=== PATIENT | female | born 1965 | race American Indian/Alaskan Native ===

== ENCOUNTER 2017-06-19 11:25 | Inpatient (IN) | payer MEDICAID ==
[2017-06-19] MEDS ORDERED: NACL 0.9% 500 ML 500 ML IV ONE (11:36)
[2017-06-19 11:53] LABS: Hematocrit 38.7 % (30.3-42.9); Hemoglobin 12.3 gm/dl (10.1-14.3); Mean Corpuscular HGB Conc 32 % (30-34); Mean Corpuscular Volume 79 fl (79-97); Platelet Count 298 K/mm3 (140-440); Red Blood Count 4.93 M/mm3 (3.65-5.03); Red Cell Distribution Width 18.2 % (13.2-15.2); White Blood Count 13.9 K/mm3 (4.5-11.0)
[2017-06-19 11:59] LABS: Mean Corpuscular Hemoglobin 25 pg (28-32)
[2017-06-19 12:33] LABS: Alanine Aminotransferase 8 units/L (7-56); Albumin 3.5 g/dL (3.9-5); Albumin/Globulin Ratio 0.8 %; Alkaline Phosphatase 107 units/L (35-129); Anion Gap 16 mmol/L; BUN/Creatinine Ratio 13; Blood Urea Nitrogen 9 mg/dL (7-17); Calcium 8.8 mg/dL (8.4-10.2); Carbon Dioxide 25 mmol/L (22-30); Chloride 100.2 mmol/L (98-107); Glucose 105 mg/dL (65-100); INR 1.69 (0.87-1.13); Potassium 3.5 mmol/L (3.6-5.0); Sodium 138 mmol/L (137-145)
--- NOTE | 2017-06-19 12:35 | XRay Report ---
Single view chest: Compared to 06/16/16. History: Possible sepsis. Findings: Marked thyromegaly. Trachea is midline. Mild pulmonary venous congestion with fluid in horizontal fissure. Normal CP angles. Impression: Probable early CHF.
[2017-06-19] MEDS ORDERED: DILAUDID IV ONE ×2 (12:37→14:00)
[2017-06-19] MEDS ORDERED: TYLENOL PO ONE (12:37)
[2017-06-19] MEDS ORDERED: VANCOMYCIN/NS 1 GM/250 ML 1 GM/250 ML BAG IV ONE (12:45)
[2017-06-19 12:46] LABS: Bacteria,Urine 1+ /HPF (Negative); Bilirubin,Urine NEG (Negative); Blood,Urine MOD (Negative); Ketones,Urine NEG (Negative); Leukocyte Esterase,Urine NEG (Negative); Mucus,Urine FEW /HPF; Nitrite,Urine NEG (Negative); Protein,Urine <15 mg/dL mg/dL (Negative); Urobilinogen,Urine < 2.0 mg/dL (<2.0); WBC,Urine < 1.0 /HPF (0.0-6.0)
[2017-06-19 12:48] LABS: Basophils % (Manual) 0 % (0.0-1.8); Blastocytes % (Manual) 0 %; Eosinophils % (Manual) 0 % (0.0-4.3); Hypochromasia 1+
[2017-06-19 12:49] LABS: Diff Status Complete
[2017-06-19] MEDS ORDERED: LASIX IV ONE (13:42)
--- NOTE | 2017-06-19 14:56 | Emergency Department Report ---
HPI - General Chief Complaint: Dyspnea/Respdistress Time Seen by Provider: 06/19/17 11:45 - HPI HPI: This is a 52 year-old female presents to the emergency department with a complaint of pain and swelling to the left leg. She says that there has been some leakage of fluid from that leg. It appears to be a acute on chronic condition as she says that it is bothering her for the past few days but she also says that she has an upcoming appointment with a vascular physician regarding the same left lower extremity. She has not taken anything for her pain prior to presentation. Patient says that she has felt febrile and does present with a fever but did not check her temperature at home. She has a past medical history of CHF, COPD, coronary artery disease with previous [place] and CABG, hypertension, Crohn's disease. She has a significant past surgical history. She does admit to some shortness of breath denies any chest pain, back pain, nausea, vomiting or diaphoresis. No recent travel or sick contacts at home. ED Past Medical Hx - Past Medical History Hx Hypertension: Yes Hx Heart Attack/AMI: Yes (double heart bypass 07/15) Hx Congestive Heart Failure: Yes (cardiomyopathy) Hx Diabetes: No Hx GERD: Yes (hiatal hernia) Hx COPD: Yes Additional medical history: Crohn's disease. Cardiomyopathy- left ventricle. Life vest in place. - Surgical History Hx Coronary Stent: Yes Hx Open Heart Surgery: No (mitral valve replacement (from old chart, pt. unsure) ) Hx Pacemaker: Yes Hx Internal Defibrillator: Yes Hx Cholecystectomy: No Hx Appendectomy: No Hx Breast Surgery: No Additional Surgical History: bowel resection- December 2007, (3) Fissurectomies,. Hysterectomy. defibrillator placed 11/2015 - Social History Smoking Status: Current Every Day Smoker Substance Use Type: None - Medications Home Medications: Home Medications Medication Instructions Recorded Confirmed Last Taken Type Atorvastatin [Lipitor] 40 mg PO QHS 10/17/14 07/21/16 06/14/15 History Warfarin [Coumadin] 5 mg PO QDAY 03/12/15 07/21/16 06/14/15 History cloNIDine [Catapres] 0.3 mg PO BID 06/13/15 07/21/16 06/14/15 History Cyclobenzaprine HCl [Flexeril 5 MG 5 mg PO Q8HR PRN #10 tab 07/21/16 Unknown Rx TAB] Gabapentin [Neurontin] 300 mg PO TID 07/21/16 07/21/16 Unknown History Lisinopril [Zestril] 40 mg PO BID 07/21/16 07/21/16 Unknown History Torsemide [Demadex] 20 mg PO QAM 07/21/16 07/21/16 Unknown History ED Review of Systems ROS: Stated complaint: LEFT LEG SWOLLEN Other details as noted in HPI Comment: All other systems reviewed and negative Constitutional: chills, fever Eyes: denies: eye pain, eye discharge, vision change ENT: denies: ear pain, throat pain Respiratory: shortness of breath. denies: cough Cardiovascular: edema. denies: chest pain Gastrointestinal: denies: abdominal pain, nausea, diarrhea Genitourinary: denies: urgency, dysuria, discharge Musculoskeletal: arthralgia, myalgia. denies: back pain Skin: change in color. denies: rash Neurological: denies: headache, numbness Physical Exam - Physical Exam Vital Signs: Vital Signs 06/19/17 06/19/17 06/19/17 11:31 12:44 12:46 Temperature 102.7 F H Pulse Rate 95 H Respiratory 22 18 18 Rate Blood Pressure 176/96 O2 Sat by Pulse 100 Oximetry 06/19/17 14:05 Temperature Pulse Rate Respiratory 18 Rate Blood Pressure O2 Sat by Pulse Oximetry Physical Exam: GENERAL: The patient is well-developed well-nourished. HENT: Normocephalic. Atraumatic. Patient has moist mucous membranes. EYES: Extraocular motions are intact. Pupils equal reactive to light bilaterally. NECK: Supple. Trachea is midline. CHEST/LUNGS: Coarse breath sounds throughout the chest. No tachypnea or accessory muscle use. There is no respiratory distress noted. HEART/CARDIOVASCULAR: Regular. There is no tachycardia. There is no gallop rub or murmur. ABDOMEN: Abdomen is soft, nontender. Patient has normal bowel sounds. There is no abdominal distention. SKIN: Skin is warm and dry. There is bilateral lower extremity swelling but left greater than right. No obvious erythema. No current weeping or drainage. NEURO: The patient is awake, alert, and oriented. The patient is cooperative. The patient has no focal neurologic deficits. The patient has normal speech. MUSCULOSKELETAL: There is tenderness to palpation to the left lower extremity from the knee distally. There is palpable pedal pulses bilaterally. ED Course Vital Signs 06/19/17 06/19/17 06/19/17 11:31 12:44 12:46 Temperature 102.7 F H Pulse Rate 95 H Respiratory 22 18 18 Rate Blood Pressure 176/96 O2 Sat by Pulse 100 Oximetry 06/19/17 14:05 Temperature Pulse Rate Respiratory 18 Rate Blood Pressure O2 Sat by Pulse Oximetry ED Medical Decision Making - Lab Data Result diagrams: 06/19/17 11:36 06/19/17 11:36 - EKG Data -: EKG Interpreted by Me EKG shows normal: sinus rhythm, axis, intervals, QRS complexes (LVH, IVCD), ST- T waves Rate: normal - EKG Data When compared to previous EKG there are: no significant change Interpretation: unchanged when compared t (06/16/17) - Radiology Data Radiology results: report reviewed, image reviewed interpreted by me: Chest x-ray shows some moderate cardiomegaly, pulmonary vascular congestion and some mild basilar pleural effusions. X-ray of the left tib-fib does not show any fracture, dislocation or any signs of osteomyelitis Left lower extremity venous Doppler was a poor study but appears negative for DVT. - Medical Decision Making 52-year-old female presents to the emergency department with the main complaint of left lower extremity pain but secondarily does have some shortness of breath. She has a history of CHF and appears to be in CHF exacerbation as she has a BNP of greater than 2500 and a chest x-ray that shows some vascular congestion and mild pleural effusions. She was given some IV Lasix to start diuresis. Regarding her left leg, a venous Doppler was done that was a poor study but did not appear to show any signs of acute DVT. There is some swelling to the bilateral lower extremities with left greater than right. She does not appear to have signs of compartment syndrome as the compartments are soft and the patient has good distal/pedal pulses. X-ray did not show any signs of osteomyelitis or any other acute process. Patient did present with a fever with a MAXIMUM TEMPERATURE of 102. She has a mild leukocytosis of 13, 000. The obvious source of infection is unknown but she was covered empirically with vancomycin. She will be admitted to the hospital for further evaluation and treatment and has been accepted for admission by the hospitalist , Dr. Cosme. - Differential Diagnosis CHF, DVT, Cellulitis, Venous Stasis Critical Care Time: No Critical care attestation.: If time is entered above; I have spent that time in minutes in the direct care of this critically ill patient, excluding procedure time. ED Disposition Clinical Impression: Systemic inflammatory response syndrome (SIRS), Left leg pain, Uncontrolled hypertension, CHF (congestive heart failure), Edema extremities Disposition: OP ADMIT IP TO THIS HOSP Is pt being admited?: Yes Condition: Stable Instructions: Hypertension (ED) Referrals: PRIMARY CARE, [Primary Care Provider] - 3-5 Days
--- NOTE | 2017-06-19 16:20 | XRay Report ---
LEFT TIBIA AND FIBULA RADIOGRAPHS INDICATION: Left leg pain. COMPARISON: 02/20/2015 left knee radiographs. FINDINGS: AP and lateral views demonstrate intact tibia and fibula as also imaged knee and ankle articulations. Unremarkable soft tissues. CONCLUSION: No acute left tibia or fibula radiographic abnormality. Thank you for the opportunity to participate in this patient's care.
[2017-06-19] MEDS ORDERED: DILAUDID IV PRN (18:14)
--- NOTE | 2017-06-19 18:14 | History and Physical Report ---
History of Present Illness Date of examination: 06/19/17 Date of admission: 06/19/17 14:31 Chief complaint: CC: Increasing SOB L leg pain 1 day History of present illness: QUILEUTE: 52 y/o AAF HTN CHF and Mitral valve replacement comes in for increasing SOB..SOBat rest and while lying flat.Also has low grade fever.Incidentall has L leg swelling.No recent travel.No PnD attacks.No chest pain Past Medical History Hx Hypertension: Yes Hx Heart Attack/AMI: Yes (double heart bypass 07/15) Hx Congestive Heart Failure: Yes (cardiomyopathy) Hx GERD: Yes (hiatal hernia) Hx COPD: Yes Additional medical history: Crohn's disease. Cardiomyopathy- left ventricle. Life vest in place. Surgical History Hx Coronary Stent: Yes Hx Open Heart Surgery: (mitral valve replacement (from old chart, pt. unsure)) Hx Pacemaker: Yes Hx Internal Defibrillator: Yes Additional Surgical History: bowel resection- December 2007, (3) Fissurectomies,. Hysterectomy. defibrillator placed 11/2015 Social History Smoking Status: Current Every Day Smoker Substance Use Type: None Fam Hx Htn - Medications Home Medications: Home Medications Medication Instructions Recorded Confirmed Last Taken Type Atorvastatin [Lipitor] 40 mg PO QHS 10/17/14 07/21/16 06/14/15 History Warfarin [Coumadin] 5 mg PO QDAY 03/12/15 07/21/16 06/14/15 History cloNIDine [Catapres] 0.3 mg PO BID 06/13/15 07/21/16 06/14/15 History Cyclobenzaprine HCl [Flexeril 5 MG 5 mg PO Q8HR PRN #10 tab 07/21/16 Unknown Rx TAB] Gabapentin [Neurontin] 300 mg PO TID 07/21/16 07/21/16 Unknown History Lisinopril [Zestril] 40 mg PO BID 07/21/16 07/21/16 Unknown History Torsemide [Demadex] 20 mg PO QAM 07/21/16 07/21/16 Unknown History Review of Systems ROS: Stated complaint: LEFT LEG SWOLLEN Other details as noted in HPI Comment: All other systems reviewed and negative Constitutional: chills, fever Eyes: denies: eye pain, eye discharge, vision change ENT: denies: ear pain, throat pain Respiratory: shortness of breath. denies: cough Cardiovascular: edema. denies: chest pain Gastrointestinal: denies: abdominal pain, nausea, diarrhea Genitourinary: denies: urgency, dysuria, discharge Musculoskeletal: arthralgia, myalgia. denies: back pain Skin: change in color. denies: rash Neurological: denies: headache, numbness Medications and Allergies Allergies Allergy/AdvReac Type Severity Reaction Status Date / Time morphine Allergy Swelling Verified 06/10/15 08:19 nitroglycerin Allergy Angioedema Verified 06/10/15 08:19 NSAIDS (Non-Steroidal Allergy Swelling Verified 06/10/15 08:19 Anti-Inflamma Home Medications Medication Instructions Recorded Confirmed Last Taken Type Atorvastatin [Lipitor] 40 mg PO QHS 10/17/14 06/20/17 06/14/15 History Warfarin [Coumadin] 5 mg PO QDAY 03/12/15 06/20/17 06/14/15 History cloNIDine [Catapres] 0.3 mg PO BID 06/13/15 06/20/17 06/14/15 History Cyclobenzaprine HCl [Flexeril 5 MG 5 mg PO Q8HR PRN #10 tab 07/21/16 06/20/17 Unknown Rx TAB] Gabapentin [Neurontin] 300 mg PO TID 07/21/16 06/20/17 Unknown History Lisinopril [Zestril] 40 mg PO BID 07/21/16 06/20/17 Unknown History Torsemide [Demadex] 20 mg PO QAM 07/21/16 06/20/17 Unknown History Active Meds: Active Medications Heparin Sodium (Porcine) (Heparin) 5,000 unit SUB-Q Q8HR HERACLIO Pneumococcal Polyvalent Vaccine (Pneumovax 23) 0.5 ml IM .ONCE ONE Stop: 06/20/17 12:01 Exam - Constitutional Vitals: Temp Pulse Resp BP Pulse Ox 99.6 F 90 18 165/72 94 06/19/17 16:31 06/19/17 13:46 06/19/17 14:57 06/19/17 16:16 06/19/17 16:16 General appearance: Present: mild distress, well-nourished - EENT Eyes: Present: PERRL ENT: hearing intact, clear oral mucosa - Neck Neck: Present: supple, normal ROM - Respiratory Respiratory effort: normal Respiratory: bilateral: CTA - Cardiovascular Heart rate: 90 Rhythm: regular Heart Sounds: Present: S1 & S2. Absent: rub, click - Extremities Extremities: pulses symmetrical, No edema Extremity abnormal: edema Peripheral Pulses: within normal limits - Abdominal General gastrointestinal: Present: soft, non-tender, non-distended, normal bowel sounds Female genitourinary: Present: normal - Rectal Rectal Exam: deferred - Integumentary Integumentary: Present: clear, warm, dry - Musculoskeletal Musculoskeletal: gait normal, strength equal bilaterally - Psychiatric Psychiatric: appropriate mood/affect, intact judgment & insight - Neurologic Neurologic: CNII-XII intact, moves all extremities - Allied Health Allied health notes reviewed: nursing, case management Results - Labs CBC & Chem 7: 06/20/17 06:28 06/20/17 06:28 Labs: Laboratory Last Values WBC 13.9 K/mm3 (4.5-11.0) H 06/19/17 11:36 RBC 4.93 M/mm3 (3.65-5.03) 06/19/17 11:36 Hgb 12.3 gm/dl (10.1-14.3) 06/19/17 11:36 Hct 38.7 % (30.3-42.9) 06/19/17 11:36 MCV 79 fl (79-97) 06/19/17 11:36 MCH 25 pg (28-32) L 06/19/17 11:36 MCHC 32 % (30-34) 06/19/17 11:36 RDW 18.2 % (13.2-15.2) H 06/19/17 11:36 Plt Count 298 K/mm3 (140-440) 06/19/17 11:36 Add Manual Diff Complete 06/19/17 11:36 Total Counted 100 06/19/17 11:36 Seg Neutrophils % Digital Asset Coordinator 06/19/17 11:36 Seg Neuts % (Manual) 95.0 % (40.0-70.0) H 06/19/17 11:36 Band Neutrophils % 3.0 % 06/19/17 11:36 Lymphocytes % (Manual) 1.0 % (13.4-35.0) L 06/19/17 11:36 Reactive Lymphs % (Man) 0 % 06/19/17 11:36 Monocytes % (Manual) 1.0 % (0.0-7.3) 06/19/17 11:36 Eosinophils % (Manual) 0 % (0.0-4.3) 06/19/17 11:36 Basophils % (Manual) 0 % (0.0-1.8) 06/19/17 11:36 Metamyelocytes % 0 % 06/19/17 11:36 Myelocytes % 0 % 06/19/17 11:36 Promyelocytes % 0 % 06/19/17 11:36 Blast Cells % 0 % 06/19/17 11:36 Nucleated RBC % Not Reportable 06/19/17 11:36 Seg Neutrophils # Man 13.2 K/mm3 (1.8-7.7) H 06/19/17 11:36 Band Neutrophils # 0.4 K/mm3 06/19/17 11:36 Lymphocytes # (Manual) 0.1 K/mm3 (1.2-5.4) L 06/19/17 11:36 Abs React Lymphs (Man) 0.0 K/mm3 06/19/17 11:36 Monocytes # (Manual) 0.1 K/mm3 (0.0-0.8) 06/19/17 11:36 Eosinophils # (Manual) 0.0 K/mm3 (0.0-0.4) 06/19/17 11:36 Basophils # (Manual) 0.0 K/mm3 (0.0-0.1) 06/19/17 11:36 Metamyelocytes # 0.0 K/mm3 06/19/17 11:36 Myelocytes # 0.0 K/mm3 06/19/17 11:36 Promyelocytes # 0.0 K/mm3 06/19/17 11:36 Blast Cells # 0.0 K/mm3 06/19/17 11:36 WBC Morphology Not Reportable 06/19/17 11:36 Hypersegmented Neuts Not Reportable 06/19/17 11:36 Hyposegmented Neuts Not Reportable 06/19/17 11:36 Hypogranular Neuts Not Reportable 06/19/17 11:36 Smudge Cells Not Reportable 06/19/17 11:36 Toxic Granulation Not Reportable 06/19/17 11:36 Toxic Vacuolation Not Reportable 06/19/17 11:36 Dohle Bodies Not Reportable 06/19/17 11:36 Pelger-Huet Anomaly Not Reportable 06/19/17 11:36 Zee Rods Not Reportable 06/19/17 11:36 Platelet Estimate Appears normal 06/19/17 11:36 Clumped Platelets Not Reportable 06/19/17 11:36 Plt Clumps, EDTA Not Reportable 06/19/17 11:36 Large Platelets Not Reportable 06/19/17 11:36 Giant Platelets Not Reportable 06/19/17 11:36 Platelet Satelliting Not Reportable 06/19/17 11:36 Plt Morphology Comment Not Reportable 06/19/17 11:36 RBC Morphology Not Reportable 06/19/17 11:36 Dimorphic RBCs Not Reportable 06/19/17 11:36 Polychromasia Not Reportable 06/19/17 11:36 Hypochromasia 1+ 06/19/17 11:36 Poikilocytosis Not Reportable 06/19/17 11:36 Anisocytosis Not Reportable 06/19/17 11:36 Microcytosis Not Reportable 06/19/17 11:36 Macrocytosis Not Reportable 06/19/17 11:36 Spherocytes Not Reportable 06/19/17 11:36 Pappenheimer Bodies Not Reportable 06/19/17 11:36 Sickle Cells Not Reportable 06/19/17 11:36 Target Cells Not Reportable 06/19/17 11:36 Tear Drop Cells Not Reportable 06/19/17 11:36 Ovalocytes Not Reportable 06/19/17 11:36 Helmet Cells Not Reportable 06/19/17 11:36 [place] Bodies Not Reportable 06/19/17 11:36 Rowe Rings Not Reportable 06/19/17 11:36 [place] Cells Not Reportable 06/19/17 11:36 Bite Cells Not Reportable 06/19/17 11:36 Crenated Cell Not Reportable 06/19/17 11:36 Elliptocytes Not Reportable 06/19/17 11:36 Acanthocytes (Spur) Not Reportable 06/19/17 11:36 Rouleaux Not Reportable 06/19/17 11:36 Hemoglobin C Crystals Not Reportable 06/19/17 11:36 Schistocytes Not Reportable 06/19/17 11:36 Malaria parasites Not Reportable 06/19/17 11:36 [place] Bodies Not Reportable 06/19/17 11:36 Hem Pathologist Commnt No 06/19/17 11:36 PT 20.7 Sec. (12.2-14.9) H 06/19/17 11:36 INR 1.69 (0.87-1.13) H 06/19/17 11:36 VBG pH 7.424 (7.320-7.420) H 06/19/17 Unknown Sodium 138 mmol/L (137-145) 06/19/17 11:36 Potassium 3.5 mmol/L (3.6-5.0) L 06/19/17 11:36 Chloride 100.2 mmol/L (98-107) 06/19/17 11:36 Carbon Dioxide 25 mmol/L (22-30) 06/19/17 11:36 Anion Gap 16 mmol/L 06/19/17 11:36 BUN 9 mg/dL (7-17) 06/19/17 11:36 Creatinine 0.7 mg/dL (0.7-1.2) 06/19/17 11:36 Estimated GFR > 60 ml/min 06/19/17 11:36 BUN/Creatinine Ratio 13 % 06/19/17 11:36 Glucose 105 mg/dL (65-100) H 06/19/17 11:36 Lactic Acid 2.10 mmol/L (0.7-2.0) H* 06/19/17 16:52 Calcium 8.8 mg/dL (8.4-10.2) 06/19/17 11:36 Total Bilirubin 1.40 mg/dL (0.1-1.2) H 06/19/17 11:36 AST 13 units/L (5-40) 06/19/17 11:36 ALT 8 units/L (7-56) 06/19/17 11:36 Alkaline Phosphatase 107 units/L (35-129) 06/19/17 11:36 NT-Pro-B Natriuret Pep 2552 pg/mL (0-900) H 06/19/17 11:36 Total Protein 8.0 g/dL (6.3-8.2) 06/19/17 11:36 Albumin 3.5 g/dL (3.9-5) L 06/19/17 11:36 Albumin/Globulin Ratio 0.8 % 06/19/17 11:36 HCG, Qual Negative (Negative) 06/19/17 Unknown Urine Color Yellow (Yellow) 06/19/17 Unknown Urine Turbidity Clear (Clear) 06/19/17 Unknown Urine pH 8.0 (5.0-7.0) H 06/19/17 Unknown Ur Specific [place] 1.011 (1.003-1.030) 06/19/17 Unknown Urine Protein <15 mg/dl mg/dL (Negative) 06/19/17 Unknown Urine Glucose (UA) Neg mg/dL (Negative) 06/19/17 Unknown Urine Ketones Neg mg/dL (Negative) 06/19/17 Unknown Urine Blood Mod (Negative) 06/19/17 Unknown Urine Nitrite Neg (Negative) 06/19/17 Unknown Urine Bilirubin Neg (Negative) 06/19/17 Unknown Urine Urobilinogen < 2.0 mg/dL (<2.0) 06/19/17 Unknown Ur Leukocyte Esterase Neg (Negative) 06/19/17 Unknown Urine WBC (Auto) < 1.0 /HPF (0.0-6.0) 06/19/17 Unknown Urine RBC (Auto) 10.0 /HPF (0.0-6.0) 06/19/17 Unknown U Epithel Cells (Auto) 2.0 /HPF (0-13.0) 06/19/17 Unknown Urine Bacteria (Auto) 1+ /HPF (Negative) 06/19/17 Unknown Urine Mucus Few /HPF 06/19/17 Unknown Short CBC 06/19/17 06/20/17 Range/Units 11:36 06:28 WBC 13.9 H 15.8 H (4.5-11.0) K/mm3 Hgb 12.3 12.8 (10.1-14.3) gm/dl Hct 38.7 38.9 (30.3-42.9) % Plt Count 298 255 (140-440) K/mm3 BMP 06/19/17 06/20/17 11:36 06:28 Sodium 138 141 Potassium 3.5 L 2.8 L* Chloride 100.2 100.0 Carbon Dioxide 25 27 BUN 9 15 Creatinine 0.7 1.0 Glucose 105 H 105 H Calcium 8.8 8.6 Liver Function 06/19/17 06/20/17 Range/Units 11:36 06:28 Total Bilirubin 1.40 H 1.50 H (0.1-1.2) mg/dL AST 13 13 (5-40) units/L ALT 8 7 (7-56) units/L Alkaline Phosphatase 107 98 (35-129) units/L Albumin 3.5 L 3.3 L (3.9-5) g/dL Urine 10/20/17 Range/Units Unknown Urine Color Yellow (Yellow) Urine pH 8.0 H (5.0-7.0) Ur Specific [place] 1.011 (1.003-1.030) Urine Protein <15 mg/dl (Negative) mg/dL Urine Glucose (UA) Neg (Negative) mg/dL - Imaging and Cardiology EKG: report reviewed (LVH with IVCD) Chest x-ray: report reviewed (Pulmonary Venous congestion) Assessment and Plan Advance Directives: Yes (Full code) VTE prophylaxis?: Chemical Plan of care discussed with patient/family: Yes - Patient Problems (1) Acute exacerbation of CHF (congestive heart failure) Current Visit: Yes Status: Acute Qualifiers: Congestive heart failure type: combined Qualified Code(s): I50.43 - Acute on chronic combined systolic (congestive) and diastolic (congestive) heart failure Plan to address problem: IV Lasix initiated Echo ordered (2) Systemic inflammatory response syndrome (SIRS) Current Visit: Yes Status: Acute Plan to address problem: Patient with temp of 102.3.And Lactic acid of 2.1 c/w SIS Initiated onLevaquin and Vancomycin ID consult requested. Blood cultures ordered (3) HTN (hypertension) Current Visit: Yes Status: Chronic Qualifiers: Hypertension type: essential hypertension Qualified Code(s): I10 - Essential (primary) hypertension Plan to address problem: Cont antihypertensives (4) Anticoagulation monitoring, INR range 2.5-3.5 Current Visit: Yes Status: Acute Plan to address problem: Patient has MVR.Pharmacy tomaintain INR in 2.5 to 3.5 (5) Hypokalemia Current Visit: Yes Status: Acute Plan to address problem: Supplemented (6) DVT prophylaxis Current Visit: Yes Status: Acute
[2017-06-19] MEDS ORDERED: NON-FORMULARY (Cyclobenzaprine Hcl [Flexeril 5 Mg Tab] 5 MG) PO PRN (18:22)
[2017-06-19] MEDS ORDERED: DULCOLAX PR PRN (18:25)
[2017-06-19] MEDS ORDERED: MILK OF MAGNESIA PO PRN (18:25)
[2017-06-19] MEDS ORDERED: ZOFRAN IV PRN (18:25)
[2017-06-19] MEDS ORDERED: FLEXERIL PO PRN (18:26)
[2017-06-19] MEDS: DILAUDID IV PRN ×2 (18:29→22:17)
[2017-06-19] MEDS ORDERED: COUMADIN PO SCH (19:00)
[2017-06-19] MEDS: LEVAQUIN 750MG/150ML 750 MG/150 ML BAG IV SCH (20:37)
[2017-06-19] MEDS: LASIX IV SCH (20:39)
[2017-06-19] MEDS: PERCOCET 5/325 PO PRN (20:53)
[2017-06-19] MEDS: NEURONTIN PO SCH (21:43)
[2017-06-19] MEDS: CATAPRES PO SCH (21:45)
[2017-06-19] MEDS: ZESTRIL PO SCH (21:50)
[2017-06-19] MEDS: PEPCID IV SCH (21:54)
[2017-06-19] MEDS: MORPHINE IV PRN (22:01)
[2017-06-19] MEDS: LOVENOX SUB-Q SCH (22:23)
[2017-06-19] MEDS: COUMADIN PO SCH (22:25)
[2017-06-19] MEDS: HEPARIN SUB-Q SCH (22:41)
[2017-06-20] MEDS: DILAUDID IV PRN ×3 (01:59→23:52)
[2017-06-20] MEDS: PERCOCET 5/325 PO PRN (03:58)
[2017-06-20] MEDS: HEPARIN SUB-Q SCH ×2 (05:59→14:15)
[2017-06-20 06:56] LABS: Hematocrit 38.9 % (30.3-42.9); Hemoglobin 12.8 gm/dl (10.1-14.3); Mean Corpuscular HGB Conc 33 % (30-34); Mean Corpuscular Volume 77 fl (79-97); Platelet Count 255 K/mm3 (140-440); Red Blood Count 5.05 M/mm3 (3.65-5.03); Red Cell Distribution Width 17.9 % (13.2-15.2); White Blood Count 15.8 K/mm3 (4.5-11.0)
[2017-06-20 07:10] LABS: INR 2.05 (0.87-1.13); Mean Corpuscular Hemoglobin 25 pg (28-32)
[2017-06-20 07:11] LABS: Alanine Aminotransferase 7 units/L (7-56); Albumin 3.3 g/dL (3.9-5); Albumin/Globulin Ratio 0.7 %; Alkaline Phosphatase 98 units/L (35-129); Anion Gap 17 mmol/L; BUN/Creatinine Ratio 15; Blood Urea Nitrogen 15 mg/dL (7-17); Calcium 8.6 mg/dL (8.4-10.2); Carbon Dioxide 27 mmol/L (22-30); Glucose 105 mg/dL (65-100); Sodium 141 mmol/L (137-145); Total Protein 7.8 g/dL (6.3-8.2)
[2017-06-20 07:15] LABS: Potassium 2.8 mmol/L (3.6-5.0)
[2017-06-20 08:16] LABS: Anisocytosis 1+; Basophils % (Manual) 0 % (0.0-1.8); Blastocytes % (Manual) 0 %; Eosinophils % (Manual) 0 % (0.0-4.3); Hypersegmented Neutrophils Few
[2017-06-20 08:17] LABS: Diff Status Complete; Hypochromasia Few; Ovalocytes Few
[2017-06-20] MEDS ORDERED: K-DUR PO ONE (08:26)
[2017-06-20] MEDS ORDERED: VANCOMYCIN PHARMACY TO DOSE IV SCH (09:00)
[2017-06-20] MEDS: NEURONTIN PO SCH ×3 (09:20→21:26)
[2017-06-20] MEDS ORDERED: NON-FORMULARY (Torsemide [Demadex] 20 MG) PO SCH (10:00)
[2017-06-20] MEDS: MORPHINE IV PRN ×3 (10:18→18:45)
[2017-06-20] MEDS: DEMADEX PO SCH (10:22)
[2017-06-20] MEDS: ZESTRIL PO SCH ×2 (10:24→21:59)
[2017-06-20] MEDS: CATAPRES PO SCH ×2 (10:24→21:55)
[2017-06-20] MEDS: PEPCID IV SCH (10:26)
[2017-06-20] MEDS: LEVAQUIN 750MG/150ML 750 MG/150 ML BAG IV SCH (10:27)
[2017-06-20] MEDS: LASIX IV SCH (10:27)
[2017-06-20] MEDS: TYLENOL PO PRN ×2 (10:49→23:21)
--- NOTE | 2017-06-20 11:46 | Consultation ---
History of Present Illness Consult date: 06/20/17 Consult reason: congestive heart failure History of present illness: This is a 52 year old obese -[place] female with a history of congestive heart failure. She is presenting with shortness of breath and bilateral leg swelling. She denies any chest pain orthopnea or PND. Past History Past Medical History: heart failure, hypertension, hyperlipidemia Past Surgical History: valve replacement Social history: no significant social history, other. denies: smoking, alcohol abuse Medications and Allergies Allergies Allergy/AdvReac Type Severity Reaction Status Date / Time morphine Allergy Swelling Verified 06/10/15 08:19 nitroglycerin Allergy Angioedema Verified 06/10/15 08:19 NSAIDS (Non-Steroidal Allergy Swelling Verified 06/10/15 08:19 Anti-Inflamma Home Medications Medication Instructions Recorded Confirmed Last Taken Type Atorvastatin [Lipitor] 40 mg PO QHS 10/17/14 06/20/17 06/14/15 History Warfarin [Coumadin] 5 mg PO QDAY 03/12/15 06/20/17 06/14/15 History cloNIDine [Catapres] 0.3 mg PO BID 06/13/15 06/20/17 06/14/15 History Cyclobenzaprine HCl [Flexeril 5 MG 5 mg PO Q8HR PRN #10 tab 07/21/16 06/20/17 Unknown Rx TAB] Gabapentin [Neurontin] 300 mg PO TID 07/21/16 06/20/17 Unknown History Lisinopril [Zestril] 40 mg PO BID 07/21/16 06/20/17 Unknown History Torsemide [Demadex] 20 mg PO QAM 07/21/16 06/20/17 Unknown History Active Meds: Active Medications Acetaminophen (Tylenol) 650 mg PO Q4H PRN PRN Reason: Pain MILD(1-3)/Fever >100.5/VACA Last Admin: 06/20/17 10:49 Dose: 650 mg Bisacodyl (Dulcolax) 10 mg [place] QDAY PRN PRN Reason: Constipation unrelieved by MOM Clonidine HCl (Catapres) 0.3 mg PO BID [facility] Last Admin: 06/20/17 10:24 Dose: 0.3 mg Cyclobenzaprine HCl (Flexeril) 5 mg PO Q8H PRN PRN Reason: Muscle Spasm Enoxaparin Sodium (Lovenox) 40 mg SUB-Q QDAY@2200 [facility] Last Admin: 06/19/17 22:23 Dose: 40 mg Famotidine (Pepcid) 20 mg IV BID [facility] Last Admin: 06/20/17 10:26 Dose: 20 mg Furosemide (Lasix) 40 mg IV QDAY [facility] Last Admin: 06/20/17 10:27 Dose: 40 mg Gabapentin (Neurontin) 300 mg PO TID [facility] Last Admin: 06/20/17 09:20 Dose: 300 mg Heparin Sodium (Porcine) (Heparin) 5,000 unit SUB-Q Q8HR [facility] Last Admin: 06/20/17 05:59 Dose: 5,000 unit Hydromorphone HCl (Dilaudid) 1 mg IV Q4H PRN PRN Reason: Pain , Severe (7-10) Last Admin: 06/20/17 06:03 Dose: 1 mg Levofloxacin/Dextrose (Levaquin 750mg/150ml) 750 mg in 150 mls @ 100 mls/hr IV Q24HR [facility] PRN Reason: Protocol Last Admin: 06/20/17 10:27 Dose: 100 mls/hr Vancomycin HCl (Vancomycin/Ns 1 Gm/250 Ml) 1 gm in 250 mls @ 166.667 mls/hr IV Q12H [facility] Lisinopril (Zestril) 40 mg PO BID [facility] Last Admin: 06/20/17 10:24 Dose: 40 mg Magnesium Hydroxide (Milk Of Magnesia) 30 ml PO Q4H PRN PRN Reason: Constipation Morphine Sulfate (Morphine) 2 mg IV Q4H PRN PRN Reason: Pain, Moderate (4-6) Last Admin: 06/20/17 10:18 Dose: 2 mg Ondansetron HCl (Zofran) 4 mg IV Q8H PRN PRN Reason: N/V unrelieved by Reglan Oxycodone/Acetaminophen (Percocet 5/325) 1 tab PO Q6H PRN PRN Reason: Pain, Moderate (4-6) Last Admin: 06/20/17 03:58 Dose: 1 tab Pneumococcal Polyvalent Vaccine (Pneumovax 23) 0.5 ml IM .ONCE ONE Stop: 06/20/17 12:01 Potassium Chloride (K-Dur) 40 meq PO Q4H [facility] Stop: 06/20/17 21:01 Torsemide (Demadex) 20 mg PO QDAY [facility] Last Admin: 06/20/17 10:22 Dose: 20 mg Vancomycin HCl (Vancomycin Pharmacy To Dose) 1 each IV PKCONSULT [facility] PRN Reason: Protocol Warfarin Sodium (Coumadin) 7.5 mg PO DAILY@1700 [facility] Last Admin: 06/19/17 22:25 Dose: 7.5 mg Review of Systems Constitutional: weight gain, fatigue, weakness, no fever, no chills Ears, nose, mouth and throat: no ear pain, no ear discharge, no epistaxis, no dysphagia, no headache, no vertigo Cardiovascular: orthopnea, shortness of breath, dyspnea on exertion Respiratory: shortness of breath, dyspnea on exertion, no cough Gastrointestinal: no abdominal pain, no nausea, no vomiting, no diarrhea, no melena, no hematochezia Genitourinary Female: no pelvic pain, no flank pain, no dysuria, no urinary frequency, no urgency Neurological: no head injury, no transient paralysis, no paralysis, no headaches , no migraines Psychiatric: no anxiety Endocrine: weight change, no cold intolerance, no heat intolerance, no polyphagia, no excessive thirst, no polydipsia, no polyuria Hematologic/Lymphatic: no easy bruising, no easy bleeding Allergic/Immunologic: no urticaria, no wheezing Physical Examination Vital Signs Temp Pulse Resp BP Pulse Ox 102.7 F H 95 H 22 176/96 100 06/19/17 11:31 06/19/17 11:31 06/19/17 11:31 06/19/17 11:31 06/19/17 11:31 General appearance: no acute distress, obese HEENT: Positive: PERRL, Normocephaly, Mucus Membranes Moist Neck: Positive: neck supple, trachea midline. Negative: JVD/HJR Cardiac: Positive: Regular Rate, S1/S2, S3, S4, PMI, Laterally Displaced Lungs: Positive: clear to auscultation, No Wheeze, Rales, Rhonchi Neuro: Positive: Grossly Intact Abdomen: Positive: Unremarkable, Active Bowel Sounds Extremities: Present: normal. Absent: edema Results 06/20/17 06:28 06/20/17 06:28 Cardiac Enzymes 06/20/17 Range/Units 06:28 AST 13 (5-40) units/L Coagulation 06/20/17 Range/Units 06:28 PT 24.1 H (12.2-14.9) Sec. INR 2.05 H (0.87-1.13) CBC 06/20/17 Range/Units 06:28 WBC 15.8 H (4.5-11.0) K/mm3 RBC 5.05 H (3.65-5.03) M/mm3 Hgb 12.8 (10.1-14.3) gm/dl Hct 38.9 (30.3-42.9) % Plt Count 255 (140-440) K/mm3 Comprehensive Metabolic Panel 06/20/17 Range/Units 06:28 Sodium 141 (137-145) mmol/L Potassium 2.8 L* (3.6-5.0) mmol/L Chloride 100.0 (98-107) mmol/L Carbon Dioxide 27 (22-30) mmol/L BUN 15 (7-17) mg/dL Creatinine 1.0 (0.7-1.2) mg/dL Glucose 105 H (65-100) mg/dL Calcium 8.6 (8.4-10.2) mg/dL AST 13 (5-40) units/L ALT 7 (7-56) units/L Alkaline Phosphatase 98 (35-129) units/L Total Protein 7.8 (6.3-8.2) g/dL Albumin 3.3 L (3.9-5) g/dL Assessment and Plan 1. Acute on chronic decompensated systolic and diastolic heart failure. 2. Status post mitral valve replacement on chronic anticoagulation 3. Dilated nonischemic cardiomyopathy last estimation of LV ejection fraction was 50- 55%. 4. History of AICD insertion which was extracted secondary to infection at the ICD pocket site. 5. Essential hypertension 6. Obesity Plan. Stat patient on diuresis and. We'll obtain a repeat echocardiogram to assess LV function. Resume home medication.
[2017-06-20] MEDS ORDERED: PNEUMOVAX 23 IM ONE (12:00)
--- NOTE | 2017-06-20 12:26 | Consultation ---
History of Present Illness - Reason for Consult Consult date: 06/20/17 [facility] Requesting physician: LATASHA GARCIA - History of Present Illness 52 years old female with history of CHF, COPD, coronary artery disease with previous NC and CABG, hypertension, Crohn's disease; admitted on 06/19/2017 complaining of a week history of left leg swelling and tenderness. Patient reports that she has chronic venous insufficiency, varicose veins. Patient reported the pain was getting worse and she decided to come to the emergency room. Upon further interview, patient is also complaining of cough with yellowish sputum production for the last 7 days. Patient denies any fever at home. Patient denies any urinary symptoms or abdominal pain. Denies any sick contacts. In the emergency room, initial temperature was 102.7, heart rate 95, blood pressure 176/96. Initial white count was 13.9. Creatinine 0.7. Lactic acid 2.1. LFTs were normal except for total bilirrubin of 1.4. CXR mild pulmonary venous congestion. XR leg no fractures. Current Antimicrobials: Levaquin 06/19 Vancomycin 06/20 Previous Antimicrobials: Microbiology: Blood cultures: 06/19 ngtd Past History Past Medical History: heart failure, hypertension, hyperlipidemia Past Surgical History: valve replacement Social history: no significant social history, other. denies: smoking, alcohol abuse Medications and Allergies Allergies Allergy/AdvReac Type Severity Reaction Status Date / Time morphine Allergy Swelling Verified 06/10/15 08:19 nitroglycerin Allergy Angioedema Verified 06/10/15 08:19 NSAIDS (Non-Steroidal Allergy Swelling Verified 06/10/15 08:19 Anti-Inflamma Home Medications Medication Instructions Recorded Confirmed Last Taken Type Atorvastatin [Lipitor] 40 mg PO QHS 10/17/14 06/20/17 06/14/15 History Warfarin [Coumadin] 5 mg PO QDAY 03/12/15 06/20/17 06/14/15 History cloNIDine [Catapres] 0.3 mg PO BID 06/13/15 06/20/17 06/14/15 History Cyclobenzaprine HCl [Flexeril 5 MG 5 mg PO Q8HR PRN #10 tab 07/21/16 06/20/17 Unknown Rx TAB] Gabapentin [Neurontin] 300 mg PO TID 07/21/16 06/20/17 Unknown History Lisinopril [Zestril] 40 mg PO BID 07/21/16 06/20/17 Unknown History Torsemide [Demadex] 20 mg PO QAM 07/21/16 06/20/17 Unknown History Active Meds: Active Medications Acetaminophen (Tylenol) 650 mg PO Q4H PRN PRN Reason: Pain MILD(1-3)/Fever >100.5/VACA Last Admin: 06/20/17 10:49 Dose: 650 mg Bisacodyl (Dulcolax) 10 mg [place] QDAY PRN PRN Reason: Constipation unrelieved by MOM Clonidine HCl (Catapres) 0.3 mg PO BID [facility] Last Admin: 06/20/17 10:24 Dose: 0.3 mg Cyclobenzaprine HCl (Flexeril) 5 mg PO Q8H PRN PRN Reason: Muscle Spasm Enoxaparin Sodium (Lovenox) 40 mg SUB-Q QDAY@2200 [facility] Last Admin: 06/19/17 22:23 Dose: 40 mg Famotidine (Pepcid) 20 mg IV BID [facility] Last Admin: 06/20/17 10:26 Dose: 20 mg Furosemide (Lasix) 40 mg IV QDAY [facility] Last Admin: 06/20/17 10:27 Dose: 40 mg Gabapentin (Neurontin) 300 mg PO TID [facility] Last Admin: 06/20/17 09:20 Dose: 300 mg Heparin Sodium (Porcine) (Heparin) 5,000 unit SUB-Q Q8HR [facility] Last Admin: 06/20/17 05:59 Dose: 5,000 unit Hydromorphone HCl (Dilaudid) 1 mg IV Q4H PRN PRN Reason: Pain , Severe (7-10) Last Admin: 06/20/17 06:03 Dose: 1 mg Levofloxacin/Dextrose (Levaquin 750mg/150ml) 750 mg in 150 mls @ 100 mls/hr IV Q24HR [facility] PRN Reason: Protocol Last Admin: 06/20/17 10:27 Dose: 100 mls/hr Vancomycin HCl (Vancomycin/Ns 1 Gm/250 Ml) 1 gm in 250 mls @ 166.667 mls/hr IV Q12H [facility] Lisinopril (Zestril) 40 mg PO BID [facility] Last Admin: 06/20/17 10:24 Dose: 40 mg Magnesium Hydroxide (Milk Of Magnesia) 30 ml PO Q4H PRN PRN Reason: Constipation Morphine Sulfate (Morphine) 2 mg IV Q4H PRN PRN Reason: Pain, Moderate (4-6) Last Admin: 06/20/17 10:18 Dose: 2 mg Ondansetron HCl (Zofran) 4 mg IV Q8H PRN PRN Reason: N/V unrelieved by Reglan Oxycodone/Acetaminophen (Percocet 5/325) 1 tab PO Q6H PRN PRN Reason: Pain, Moderate (4-6) Last Admin: 06/20/17 03:58 Dose: 1 tab Potassium Chloride (K-Dur) 40 meq PO Q4H [facility] Stop: 06/20/17 21:01 Torsemide (Demadex) 20 mg PO QDAY [facility] Last Admin: 06/20/17 10:22 Dose: 20 mg Vancomycin HCl (Vancomycin Pharmacy To Dose) 1 each IV PKCONSULT [facility] PRN Reason: Protocol Warfarin Sodium (Coumadin) 7.5 mg PO DAILY@1700 [facility] Last Admin: 06/19/17 22:25 Dose: 7.5 mg Review of Systems All systems: negative (as per HPI rest of 10 point ROS negative) Physical Examination - Physical Exam Narrative exam: General appearance: Alert in NAD, conversant Eyes: anicteric sclerae, moist conjunctivae; no lid-lag; PERRLA HENT: Atraumatic; oropharynx clear Neck: Trachea midline; supple, no thyromegaly or lymphadenopathy Lungs: bibaslar crackles CV: RRR, no murmurs Abdomen: Soft, non-tender Extremities: +left leg discoloration, heat and TTP, +right ankle discoloration. Skin: Normal temperature, turgor and texture; no rash, ulcers or subcutaneous nodules Psych: Appropriate affect, alert and oriented to person, place and time. Neuro: alert and oriented x 3. Moving all extermities Lines: No CVL / PICC - Constitutional Vitals: Vital Signs Temp Pulse Resp BP Pulse Ox 100.4 F H 79 18 103/51 100 06/20/17 12:05 06/20/17 12:05 06/20/17 12:05 06/20/17 12:05 06/20/17 12:05 Temperature -Last 24 Hours Temperature 100.4 F Temperature 102.5 F Temperature 100 F Temperature 100 F Temperature 100 F Temperature 102.3 F Temperature 100.3 F Temperature 99.6 F Results - Labs CBC & Chem 7: 06/20/17 06:28 06/20/17 06:28 Labs: Abnormal lab results 06/19/17 06/19/17 06/19/17 Range/Units 16:52 Unknown Unknown WBC (4.5-11.0) K/mm3 RBC (3.65-5.03) M/mm3 MCV (79-97) fl MCH (28-32) pg RDW (13.2-15.2) % Lymphocytes % (Manual) (13.4-35.0) % Monocytes % (Manual) (0.0-7.3) % Seg Neutrophils # Man (1.8-7.7) K/mm3 Monocytes # (Manual) (0.0-0.8) K/mm3 PT (12.2-14.9) Sec. INR (0.87-1.13) VBG pH 7.424 H (7.320-7.420) Potassium (3.6-5.0) mmol/L Glucose (65-100) mg/dL Lactic Acid 2.10 H* (0.7-2.0) mmol/L Total Bilirubin (0.1-1.2) mg/dL Albumin (3.9-5) g/dL Urine pH 8.0 H (5.0-7.0) 06/20/17 06/20/17 06/20/17 Range/Units 06:28 06:28 06:28 WBC 15.8 H (4.5-11.0) K/mm3 RBC 5.05 H (3.65-5.03) M/mm3 MCV 77 L (79-97) fl MCH 25 L (28-32) pg RDW 17.9 H (13.2-15.2) % Lymphocytes % (Manual) 12.0 L (13.4-35.0) % Monocytes % (Manual) 10.0 H (0.0-7.3) % Seg Neutrophils # Man 9.5 H (1.8-7.7) K/mm3 Monocytes # (Manual) 1.6 H (0.0-0.8) K/mm3 PT 24.1 H (12.2-14.9) Sec. INR 2.05 H (0.87-1.13) VBG pH (7.320-7.420) Potassium 2.8 L* (3.6-5.0) mmol/L Glucose 105 H (65-100) mg/dL Lactic Acid (0.7-2.0) mmol/L Total Bilirubin 1.50 H (0.1-1.2) mg/dL Albumin 3.3 L (3.9-5) g/dL Urine pH (5.0-7.0) Assessment and Plan Assessment: 1) Sepsis: Present on admission, manifested by fever, tachycardia, leukocytosis , increased lactate. Etiology - likely left leg cellulitis+/- presumed pneumonia 2) Left leg cellulitis 3) Presumed pneumonia versus COPD exacerbation: Increased yellow sputum production -CXR +pulmonary edema 4) CHF 5) COPD 6) History of coronary artery disease with previous NC and CABG 7) Hypertension 8) Crohn's disease Plan: -follow-up blood cultures -obtain respiratory cultures, procalcitonin, C-reactive protein (CRP) -check influenza antigen PCR in nasopharinx -continue levaquin and vancomycin -Arterial / venous US leg -repeat CXR in 48h Thank you Dr Best for your consultation, will follow up with you. Roberta Morales MD Infectious Diseases Specialist [facility] ([facility] M [phone] O [phone]
--- NOTE | 2017-06-20 12:27 | Progress Note ---
Assessment and Plan Assessment and plan: Sepsis. Patient meets criteria given the fever and tachycardia. Continue IV on about his follow-up blood cultures. Acute CHF exacerbation. Etiology systolic versus diastolic. Await echocardiogram results. Cardiology following. Continue diuresis. Dilated nonischemic cardiomyopathy. History of AICD insertion, which was extracted due to infection of the ICD. EF 55%. Hypertension. Continue antihypertensive medications. s/p mitral valve replacement. Cont. chronic anticoagulation. Obesity. DVT prophylaxis. History Interval history: No new issues. Hospitalist Physical - Constitutional Vitals: Temp Pulse Resp BP Pulse Ox 100.4 F H 79 18 103/51 100 06/20/17 12:05 06/20/17 12:05 06/20/17 12:05 06/20/17 12:05 06/20/17 12:05 General appearance: Present: no acute distress, obese - EENT Eyes: Present: PERRL, EOM intact ENT: hearing intact, clear oral mucosa, dentition normal - Neck Neck: Present: supple, normal ROM - Respiratory Respiratory effort: normal Respiratory: bilateral: diminished, rales - Cardiovascular Rhythm: regular Heart Sounds: Present: S1 & S2. Absent: gallop, rub - Extremities Extremities: no ischemia, No edema, Full ROM - Abdominal General gastrointestinal: soft, non-tender, non-distended, normal bowel sounds - Integumentary Integumentary: Present: clear, warm, dry - Neurologic Neurologic: CNII-XII intact, moves all extremities Results - Labs CBC & Chem 7: 06/20/17 06:28 06/20/17 06:28 Labs: Laboratory Last Values WBC 15.8 K/mm3 (4.5-11.0) H 06/20/17 06:28 RBC 5.05 M/mm3 (3.65-5.03) H 06/20/17 06:28 Hgb 12.8 gm/dl (10.1-14.3) 06/20/17 06:28 Hct 38.9 % (30.3-42.9) 06/20/17 06:28 MCV 77 fl (79-97) L 06/20/17 06:28 MCH 25 pg (28-32) L 06/20/17 06:28 MCHC 33 % (30-34) 06/20/17 06:28 RDW 17.9 % (13.2-15.2) H 06/20/17 06:28 Plt Count 255 K/mm3 (140-440) 06/20/17 06:28 Add Manual Diff Complete 06/20/17 06:28 Total Counted 100 06/20/17 06:28 Seg Neutrophils % Pulper 06/20/17 06:28 Seg Neuts % (Manual) 60.0 % (40.0-70.0) 06/20/17 06:28 Band Neutrophils % 18.0 % 06/20/17 06:28 Lymphocytes % (Manual) 12.0 % (13.4-35.0) L 06/20/17 06:28 Reactive Lymphs % (Man) 0 % 06/20/17 06:28 Monocytes % (Manual) 10.0 % (0.0-7.3) H 06/20/17 06:28 Eosinophils % (Manual) 0 % (0.0-4.3) 06/20/17 06:28 Basophils % (Manual) 0 % (0.0-1.8) 06/20/17 06:28 Metamyelocytes % 0 % 06/20/17 06:28 Myelocytes % 0 % 06/20/17 06:28 Promyelocytes % 0 % 06/20/17 06:28 Blast Cells % 0 % 06/20/17 06:28 Nucleated RBC % Not Reportable 06/20/17 06:28 Seg Neutrophils # Man 9.5 K/mm3 (1.8-7.7) H 06/20/17 06:28 Band Neutrophils # 2.8 K/mm3 06/20/17 06:28 Lymphocytes # (Manual) 1.9 K/mm3 (1.2-5.4) 06/20/17 06:28 Abs React Lymphs (Man) 0.0 K/mm3 06/20/17 06:28 Monocytes # (Manual) 1.6 K/mm3 (0.0-0.8) H 06/20/17 06:28 Eosinophils # (Manual) 0.0 K/mm3 (0.0-0.4) 06/20/17 06:28 Basophils # (Manual) 0.0 K/mm3 (0.0-0.1) 06/20/17 06:28 Metamyelocytes # 0.0 K/mm3 06/20/17 06:28 Myelocytes # 0.0 K/mm3 06/20/17 06:28 Promyelocytes # 0.0 K/mm3 06/20/17 06:28 Blast Cells # 0.0 K/mm3 06/20/17 06:28 WBC Morphology Not Reportable 06/20/17 06:28 Hypersegmented Neuts Few 06/20/17 06:28 Hyposegmented Neuts Not Reportable 06/20/17 06:28 Hypogranular Neuts Not Reportable 06/20/17 06:28 Smudge Cells Not Reportable 06/20/17 06:28 Toxic Granulation Not Reportable 06/20/17 06:28 Toxic Vacuolation Not Reportable 06/20/17 06:28 Dohle Bodies Not Reportable 06/20/17 06:28 Pelger-Huet Anomaly Not Reportable 06/20/17 06:28 Zee Rods Not Reportable 06/20/17 06:28 Platelet Estimate Appears normal 06/20/17 06:28 Clumped Platelets Not Reportable 06/20/17 06:28 Plt Clumps, EDTA Not Reportable 06/20/17 06:28 Large Platelets Not Reportable 06/20/17 06:28 Giant Platelets Not Reportable 06/20/17 06:28 Platelet Satelliting Not Reportable 06/20/17 06:28 Plt Morphology Comment Not Reportable 06/20/17 06:28 RBC Morphology Not Reportable 06/20/17 06:28 Dimorphic RBCs Not Reportable 06/20/17 06:28 Polychromasia Not Reportable 06/20/17 06:28 Hypochromasia Few 06/20/17 06:28 Poikilocytosis Not Reportable 06/20/17 06:28 Anisocytosis 1+ 06/20/17 06:28 Microcytosis Not Reportable 06/20/17 06:28 Macrocytosis Not Reportable 06/20/17 06:28 Spherocytes Not Reportable 06/20/17 06:28 Pappenheimer Bodies Not Reportable 06/20/17 06:28 Sickle Cells Not Reportable 06/20/17 06:28 Target Cells Not Reportable 06/20/17 06:28 Tear Drop Cells Not Reportable 06/20/17 06:28 Ovalocytes Few 06/20/17 06:28 Helmet Cells Not Reportable 06/20/17 06:28 Mendez-Judsonia Bodies Not Reportable 06/20/17 06:28 Liberty Rings Not Reportable 06/20/17 06:28 Nilay Cells Not Reportable 06/20/17 06:28 Bite Cells Not Reportable 06/20/17 06:28 Crenated Cell Not Reportable 06/20/17 06:28 Elliptocytes Not Reportable 06/20/17 06:28 Acanthocytes (Spur) Not Reportable 06/20/17 06:28 Rouleaux Not Reportable 06/20/17 06:28 Hemoglobin C Crystals Not Reportable 06/20/17 06:28 Schistocytes Not Reportable 06/20/17 06:28 Malaria parasites Not Reportable 06/20/17 06:28 Garrett Bodies Not Reportable 06/20/17 06:28 Hem Pathologist Commnt No 06/20/17 06:28 PT 24.1 Sec. (12.2-14.9) H 06/20/17 06:28 INR 2.05 (0.87-1.13) H 06/20/17 06:28 VBG pH 7.424 (7.320-7.420) H 06/19/17 Unknown Sodium 141 mmol/L (137-145) 06/20/17 06:28 Potassium 2.8 mmol/L (3.6-5.0) L* 06/20/17 06:28 Chloride 100.0 mmol/L (98-107) 06/20/17 06:28 Carbon Dioxide 27 mmol/L (22-30) 06/20/17 06:28 Anion Gap 17 mmol/L 06/20/17 06:28 BUN 15 mg/dL (7-17) 06/20/17 06:28 Creatinine 1.0 mg/dL (0.7-1.2) 06/20/17 06:28 Estimated GFR > 60 ml/min 06/20/17 06:28 BUN/Creatinine Ratio 15 % 06/20/17 06:28 Glucose 105 mg/dL (65-100) H 06/20/17 06:28 Lactic Acid 2.10 mmol/L (0.7-2.0) H* 06/19/17 16:52 Calcium 8.6 mg/dL (8.4-10.2) 06/20/17 06:28 Total Bilirubin 1.50 mg/dL (0.1-1.2) H 06/20/17 06:28 AST 13 units/L (5-40) 06/20/17 06:28 ALT 7 units/L (7-56) 06/20/17 06:28 Alkaline Phosphatase 98 units/L (35-129) 06/20/17 06:28 NT-Pro-B Natriuret Pep 2552 pg/mL (0-900) H 06/19/17 11:36 Total Protein 7.8 g/dL (6.3-8.2) 06/20/17 06:28 Albumin 3.3 g/dL (3.9-5) L 06/20/17 06:28 Albumin/Globulin Ratio 0.7 % 06/20/17 06:28 HCG, Qual Negative (Negative) 06/19/17 Unknown Urine Color Yellow (Yellow) 06/19/17 Unknown Urine Turbidity Clear (Clear) 06/19/17 Unknown Urine pH 8.0 (5.0-7.0) H 06/19/17 Unknown Ur Specific [place] 1.011 (1.003-1.030) 06/19/17 Unknown Urine Protein <15 mg/dl mg/dL (Negative) 06/19/17 Unknown Urine Glucose (UA) Neg mg/dL (Negative) 06/19/17 Unknown Urine Ketones Neg mg/dL (Negative) 06/19/17 Unknown Urine Blood Mod (Negative) 06/19/17 Unknown Urine Nitrite Neg (Negative) 06/19/17 Unknown Urine Bilirubin Neg (Negative) 06/19/17 Unknown Urine Urobilinogen < 2.0 mg/dL (<2.0) 06/19/17 Unknown Ur Leukocyte Esterase Neg (Negative) 06/19/17 Unknown Urine WBC (Auto) < 1.0 /HPF (0.0-6.0) 06/19/17 Unknown Urine RBC (Auto) 10.0 /HPF (0.0-6.0) 06/19/17 Unknown U Epithel Cells (Auto) 2.0 /HPF (0-13.0) 06/19/17 Unknown Urine Bacteria (Auto) 1+ /HPF (Negative) 06/19/17 Unknown Urine Mucus Few /HPF 06/19/17 Unknown
[2017-06-20] MEDS: K-DUR PO SCH ×4 (15:00→22:08)
[2017-06-20] MEDS: VANCOMYCIN/NS 1 GM/250 ML 1 GM/250 ML BAG IV SCH (16:35)
[2017-06-20] MEDS: COUMADIN PO SCH (19:05)
[2017-06-20] MEDS: PEPCID PO SCH (21:26)
[2017-06-20] MEDS: LOVENOX SUB-Q SCH (21:26)
[2017-06-20] MEDS ORDERED: BENADRYL IV ONE (21:40)
[2017-06-20] MEDS ORDERED: PROVENTIL IH ONE (21:43)
[2017-06-21] MEDS: VANCOMYCIN/NS 1 GM/250 ML 1 GM/250 ML BAG IV SCH ×2 (02:00→14:15)
[2017-06-21] MEDS: DILAUDID IV PRN ×5 (05:11→20:57)
[2017-06-21 06:16] LABS: INR 4.21 (0.87-1.13)
[2017-06-21] MEDS: NEURONTIN PO SCH ×3 (09:19→21:06)
--- NOTE | 2017-06-21 09:20 | Progress Note ---
Assessment and Plan 1. Acute on chronic decompensated systolic and diastolic heart failure. 2. Status post mitral valve replacement on chronic anticoagulation 3. Dilated nonischemic cardiomyopathy last estimation of LV ejection fraction was 50- 55%. 4. History of AICD insertion which was extracted secondary to infection at the ICD pocket site. 5. Essential hypertension 6. Obesity 7. Coumadin toxicity Plan. Stat patient on diuresis and. We'll obtain a repeat echocardiogram to assess LV function. Resume home medication. Resume Coumadin INR today 1.69. repeat CXR Subjective Date of service: 06/21/17 Principal diagnosis: CHF Interval history: No cardiac symptoms. Objective Vital Signs Temp Pulse Pulse Pulse Resp Resp Resp 06/21/17 04:59 98.8 F 61 16 06/20/17 23:15 99.8 F H 85 22 06/20/17 22:13 72 18 06/20/17 22:00 76 20 18 06/20/17 21:59 60 06/20/17 21:55 60 06/20/17 19:50 99.4 F 60 16 06/20/17 18:48 06/20/17 16:23 100 F H 58 L 20 06/20/17 12:05 100.4 F H 79 18 BP BP Pulse Ox 06/21/17 04:59 94/53 100 06/20/17 23:15 116/55 92 06/20/17 22:13 06/20/17 22:00 06/20/17 21:59 96/58 06/20/17 21:55 96/58 06/20/17 19:50 96/58 94 06/20/17 18:48 100 06/20/17 16:23 77/35 100 06/20/17 12:05 103/51 100 - Physical Examination General: Appears Well, No Apparent Distress, Other (obese) HEENT: Positive: PERRL, Normocephaly, Mucus Membranes Moist Neck: Positive: neck supple, trachea midline. Negative: JVD/HJR Cardiac: Positive: Regular Rate, S1/S2, PMI, Dilated, Laterally Displaced Lungs: Positive: clear to auscultation, No Wheeze, Rales, Rhonchi Neuro: Positive: Grossly Intact Abdomen: Positive: Unremarkable, Active Bowel Sounds Extremities: Present: normal. Absent: edema - Labs and Meds Coagulation 10/22/17 Range/Units 05:11 PT 42.5 H (12.2-14.9) Sec. INR 4.21 H (0.87-1.13) - Imaging and Cardiology EKG: report reviewed (LVH with IVCD) - Telemetry EKG Rhythm: Sinus Rhythm
[2017-06-21] MEDS: LEVAQUIN 750MG/150ML 750 MG/150 ML BAG IV SCH (09:21)
[2017-06-21] MEDS: DEMADEX PO SCH (09:21)
[2017-06-21] MEDS: ZESTRIL PO SCH ×2 (09:48→21:09)
[2017-06-21] MEDS: CATAPRES PO SCH ×2 (09:49→21:08)
[2017-06-21] MEDS: LASIX IV SCH (09:49)
--- NOTE | 2017-06-21 10:47 | Progress Note ---
Assessment and Plan Assessment and plan: Sepsis. Patient meets criteria given the fever and tachycardia. Continue IV abx and follow-up blood cultures. Acute diastolic CHF exacerbation. Await echocardiogram results. Cardiology following. Continue diuresis. Dilated nonischemic cardiomyopathy. History of AICD insertion, which was extracted due to infection of the ICD. EF 55%. Nonsustained V. tach. Patient with a 4 beat run of V. tach this morning. Etiology likely secondary to hypokalemia. Replete potassium and continue telemetry monitoring. Hypokalemia. Replete potassium. Hypertension. Continue antihypertensive medications. s/p mitral valve replacement. Cont. chronic anticoagulation. Obesity. DVT prophylaxis. History Interval history: No new issues. Hospitalist Physical - Constitutional Vitals: Temp Pulse Resp BP Pulse Ox 99.3 F 56 L 24 103/60 100 06/21/17 08:20 06/21/17 08:20 06/21/17 08:20 06/21/17 08:20 06/21/17 04:59 General appearance: Present: no acute distress, obese - EENT Eyes: Present: PERRL, EOM intact ENT: hearing intact, clear oral mucosa, dentition normal - Neck Neck: Present: supple, normal ROM - Respiratory Respiratory effort: normal Respiratory: bilateral: CTA - Cardiovascular Rhythm: regular Heart Sounds: Present: S1 & S2. Absent: gallop, rub - Extremities Extremities: no ischemia, No edema, Full ROM - Abdominal General gastrointestinal: soft, non-tender, non-distended, normal bowel sounds - Integumentary Integumentary: Present: clear, warm, dry - Neurologic Neurologic: CNII-XII intact, moves all extremities Results - Labs CBC & Chem 7: 06/20/17 06:28 06/20/17 06:28 Labs: Laboratory Last Values WBC 15.8 K/mm3 (4.5-11.0) H 06/20/17 06:28 RBC 5.05 M/mm3 (3.65-5.03) H 06/20/17 06:28 Hgb 12.8 gm/dl (10.1-14.3) 06/20/17 06:28 Hct 38.9 % (30.3-42.9) 06/20/17 06:28 MCV 77 fl (79-97) L 06/20/17 06:28 MCH 25 pg (28-32) L 06/20/17 06:28 MCHC 33 % (30-34) 06/20/17 06:28 RDW 17.9 % (13.2-15.2) H 06/20/17 06:28 Plt Count 255 K/mm3 (140-440) 06/20/17 06:28 Add Manual Diff Complete 06/20/17 06:28 Total Counted 100 06/20/17 06:28 Seg Neutrophils % [employer] 06/20/17 06:28 Seg Neuts % (Manual) 60.0 % (40.0-70.0) 06/20/17 06:28 Band Neutrophils % 18.0 % 06/20/17 06:28 Lymphocytes % (Manual) 12.0 % (13.4-35.0) L 06/20/17 06:28 Reactive Lymphs % (Man) 0 % 06/20/17 06:28 Monocytes % (Manual) 10.0 % (0.0-7.3) H 06/20/17 06:28 Eosinophils % (Manual) 0 % (0.0-4.3) 06/20/17 06:28 Basophils % (Manual) 0 % (0.0-1.8) 06/20/17 06:28 Metamyelocytes % 0 % 06/20/17 06:28 Myelocytes % 0 % 06/20/17 06:28 Promyelocytes % 0 % 06/20/17 06:28 Blast Cells % 0 % 06/20/17 06:28 Nucleated RBC % Not Reportable 06/20/17 06:28 Seg Neutrophils # Man 9.5 K/mm3 (1.8-7.7) H 06/20/17 06:28 Band Neutrophils # 2.8 K/mm3 06/20/17 06:28 Lymphocytes # (Manual) 1.9 K/mm3 (1.2-5.4) 06/20/17 06:28 Abs React Lymphs (Man) 0.0 K/mm3 06/20/17 06:28 Monocytes # (Manual) 1.6 K/mm3 (0.0-0.8) H 06/20/17 06:28 Eosinophils # (Manual) 0.0 K/mm3 (0.0-0.4) 06/20/17 06:28 Basophils # (Manual) 0.0 K/mm3 (0.0-0.1) 06/20/17 06:28 Metamyelocytes # 0.0 K/mm3 06/20/17 06:28 Myelocytes # 0.0 K/mm3 06/20/17 06:28 Promyelocytes # 0.0 K/mm3 06/20/17 06:28 Blast Cells # 0.0 K/mm3 06/20/17 06:28 WBC Morphology Not Reportable 06/20/17 06:28 Hypersegmented Neuts Few 06/20/17 06:28 Hyposegmented Neuts Not Reportable 06/20/17 06:28 Hypogranular Neuts Not Reportable 06/20/17 06:28 Smudge Cells Not Reportable 06/20/17 06:28 Toxic Granulation Not Reportable 06/20/17 06:28 Toxic Vacuolation Not Reportable 06/20/17 06:28 Dohle Bodies Not Reportable 06/20/17 06:28 Pelger-Huet Anomaly Not Reportable 06/20/17 06:28 Zee Rods Not Reportable 06/20/17 06:28 Platelet Estimate Appears normal 06/20/17 06:28 Clumped Platelets Not Reportable 06/20/17 06:28 Plt Clumps, EDTA Not Reportable 06/20/17 06:28 Large Platelets Not Reportable 06/20/17 06:28 Giant Platelets Not Reportable 06/20/17 06:28 Platelet Satelliting Not Reportable 06/20/17 06:28 Plt Morphology Comment Not Reportable 06/20/17 06:28 RBC Morphology Not Reportable 06/20/17 06:28 Dimorphic RBCs Not Reportable 06/20/17 06:28 Polychromasia Not Reportable 06/20/17 06:28 Hypochromasia Few 06/20/17 06:28 Poikilocytosis Not Reportable 06/20/17 06:28 Anisocytosis 1+ 06/20/17 06:28 Microcytosis Not Reportable 06/20/17 06:28 Macrocytosis Not Reportable 06/20/17 06:28 Spherocytes Not Reportable 06/20/17 06:28 Pappenheimer Bodies Not Reportable 06/20/17 06:28 Sickle Cells Not Reportable 06/20/17 06:28 Target Cells Not Reportable 06/20/17 06:28 Tear Drop Cells Not Reportable 06/20/17 06:28 Ovalocytes Few 06/20/17 06:28 Helmet Cells Not Reportable 06/20/17 06:28 Mendez-Ferron Bodies Not Reportable 06/20/17 06:28 [place] Rings Not Reportable 06/20/17 06:28 [place] Cells Not Reportable 06/20/17 06:28 Bite Cells Not Reportable 06/20/17 06:28 Crenated Cell Not Reportable 06/20/17 06:28 Elliptocytes Not Reportable 06/20/17 06:28 Acanthocytes (Spur) Not Reportable 06/20/17 06:28 Rouleaux Not Reportable 06/20/17 06:28 Hemoglobin C Crystals Not Reportable 06/20/17 06:28 Schistocytes Not Reportable 06/20/17 06:28 Malaria parasites Not Reportable 06/20/17 06:28 Garrett Bodies Not Reportable 06/20/17 06:28 Hem Pathologist Commnt No 06/20/17 06:28 PT 42.5 Sec. (12.2-14.9) H 06/21/17 05:11 INR 4.21 (0.87-1.13) H 06/21/17 05:11 VBG pH 7.424 (7.320-7.420) H 06/19/17 Unknown Sodium 141 mmol/L (137-145) 06/20/17 06:28 Potassium 2.8 mmol/L (3.6-5.0) L* 06/20/17 06:28 Chloride 100.0 mmol/L (98-107) 06/20/17 06:28 Carbon Dioxide 27 mmol/L (22-30) 06/20/17 06:28 Anion Gap 17 mmol/L 06/20/17 06:28 BUN 15 mg/dL (7-17) 06/20/17 06:28 Creatinine 1.0 mg/dL (0.7-1.2) 06/20/17 06:28 Estimated GFR > 60 ml/min 06/20/17 06:28 BUN/Creatinine Ratio 15 % 06/20/17 06:28 Glucose 105 mg/dL (65-100) H 06/20/17 06:28 Lactic Acid 2.10 mmol/L (0.7-2.0) H* 06/19/17 16:52 Calcium 8.6 mg/dL (8.4-10.2) 06/20/17 06:28 Total Bilirubin 1.50 mg/dL (0.1-1.2) H 06/20/17 06:28 AST 13 units/L (5-40) 06/20/17 06:28 ALT 7 units/L (7-56) 06/20/17 06:28 Alkaline Phosphatase 98 units/L (35-129) 06/20/17 06:28 C-Reactive Protein 23.10 mg/dL (0.00-1.30) H 06/20/17 13:14 NT-Pro-B Natriuret Pep 2552 pg/mL (0-900) H 06/19/17 11:36 Total Protein 7.8 g/dL (6.3-8.2) 06/20/17 06:28 Albumin 3.3 g/dL (3.9-5) L 06/20/17 06:28 Albumin/Globulin Ratio 0.7 % 06/20/17 06:28 HCG, Qual Negative (Negative) 06/19/17 Unknown Urine Color Yellow (Yellow) 06/19/17 Unknown Urine Turbidity Clear (Clear) 06/19/17 Unknown Urine pH 8.0 (5.0-7.0) H 06/19/17 Unknown Ur Specific [place] 1.011 (1.003-1.030) 06/19/17 Unknown Urine Protein <15 mg/dl mg/dL (Negative) 06/19/17 Unknown Urine Glucose (UA) Neg mg/dL (Negative) 06/19/17 Unknown Urine Ketones Neg mg/dL (Negative) 06/19/17 Unknown Urine Blood Mod (Negative) 06/19/17 Unknown Urine Nitrite Neg (Negative) 06/19/17 Unknown Urine Bilirubin Neg (Negative) 06/19/17 Unknown Urine Urobilinogen < 2.0 mg/dL (<2.0) 06/19/17 Unknown Ur Leukocyte Esterase Neg (Negative) 06/19/17 Unknown Urine WBC (Auto) < 1.0 /HPF (0.0-6.0) 06/19/17 Unknown Urine RBC (Auto) 10.0 /HPF (0.0-6.0) 06/19/17 Unknown U Epithel Cells (Auto) 2.0 /HPF (0-13.0) 06/19/17 Unknown Urine Bacteria (Auto) 1+ /HPF (Negative) 06/19/17 Unknown Urine Mucus Few /HPF 06/19/17 Unknown
[2017-06-21] MEDS: PEPCID PO SCH ×2 (12:13→21:06)
[2017-06-21 13:57] LABS: Calcium 8.5 mg/dL (8.4-10.2); Chloride 96.7 mmol/L (98-107); Potassium 3.7 mmol/L (3.6-5.0)
[2017-06-21] MEDS: PERCOCET 5/325 PO PRN ×2 (15:44→23:18)
[2017-06-21] MEDS ORDERED: COUMADIN NO DOSE TODAY PO ONE (17:00)
[2017-06-22] MEDS: DILAUDID IV PRN ×3 (01:54→10:32)
[2017-06-22] MEDS: VANCOMYCIN/NS 1 GM/250 ML 1 GM/250 ML BAG IV SCH ×3 (01:54→18:37)
[2017-06-22] MEDS: PERCOCET 5/325 PO PRN (07:25)
--- NOTE | 2017-06-22 09:07 | Progress Note ---
Assessment and Plan Assessment and plan: Sepsis. Blood cultures reveal MRSA. ID following. Consider discontinuing Levaquin. Left lower extremity cellulitis. Continue IV antibiotics as above. Acute diastolic CHF exacerbation. Await echocardiogram results. Cardiology following. Continue diuresis per cardiology. Check chest x-ray and BNP Acute renal failure. Etiology likely secondary to acute kidney injury from sepsis/ATN. Nephrology consultation. Dilated nonischemic cardiomyopathy. History of AICD insertion, which was extracted due to infection of the ICD. EF 55%. Nonsustained V. tach. Patient with a 4 beat run of V. tach this morning. Etiology likely secondary to hypokalemia. Replete potassium and continue telemetry monitoring. Hypokalemia. Replete potassium. Hypertension. Continue antihypertensive medications. s/p mitral valve replacement. Hold coumadin--INR > 5 Coagulopathy. Hold coumadin Obesity. Chronic pain syndrome. Continue Dilaudid and OxyContin. I confirmed the medications with her pain clinic at Dr. Luna's office ([phone]) DVT prophylaxis. History Interval history: No new issues. Hospitalist Physical - Constitutional Vitals: Temp Pulse Resp BP Pulse Ox 98.7 F 58 L 18 99/59 97 06/22/17 00:33 06/22/17 00:33 06/22/17 07:25 06/22/17 00:33 06/22/17 00:33 General appearance: Present: no acute distress, obese - EENT Eyes: Present: PERRL, EOM intact ENT: hearing intact, clear oral mucosa, dentition normal - Neck Neck: Present: supple, normal ROM - Respiratory Respiratory effort: normal Respiratory: bilateral: CTA - Cardiovascular Rhythm: regular Heart Sounds: Present: S1 & S2. Absent: gallop, rub - Extremities Extremities: no ischemia, No edema, Full ROM - Abdominal General gastrointestinal: soft, non-tender, non-distended, normal bowel sounds - Integumentary Integumentary: Present: clear, warm, dry - Neurologic Neurologic: CNII-XII intact, moves all extremities Results - Labs CBC & Chem 7: 06/22/17 08:44 06/22/17 08:57 Labs: Laboratory Last Values WBC 15.8 K/mm3 (4.5-11.0) H 06/20/17 06:28 RBC 5.05 M/mm3 (3.65-5.03) H 06/20/17 06:28 Hgb 12.8 gm/dl (10.1-14.3) 06/20/17 06:28 Hct 38.9 % (30.3-42.9) 06/20/17 06:28 MCV 77 fl (79-97) L 06/20/17 06:28 MCH 25 pg (28-32) L 06/20/17 06:28 MCHC 33 % (30-34) 06/20/17 06:28 RDW 17.9 % (13.2-15.2) H 06/20/17 06:28 Plt Count 255 K/mm3 (140-440) 06/20/17 06:28 Add Manual Diff Complete 06/20/17 06:28 Total Counted 100 06/20/17 06:28 Seg Neutrophils % Double Needle Stitcher 06/20/17 06:28 Seg Neuts % (Manual) 60.0 % (40.0-70.0) 06/20/17 06:28 Band Neutrophils % 18.0 % 06/20/17 06:28 Lymphocytes % (Manual) 12.0 % (13.4-35.0) L 06/20/17 06:28 Reactive Lymphs % (Man) 0 % 06/20/17 06:28 Monocytes % (Manual) 10.0 % (0.0-7.3) H 06/20/17 06:28 Eosinophils % (Manual) 0 % (0.0-4.3) 06/20/17 06:28 Basophils % (Manual) 0 % (0.0-1.8) 06/20/17 06:28 Metamyelocytes % 0 % 06/20/17 06:28 Myelocytes % 0 % 06/20/17 06:28 Promyelocytes % 0 % 06/20/17 06:28 Blast Cells % 0 % 06/20/17 06:28 Nucleated RBC % Not Reportable 06/20/17 06:28 Seg Neutrophils # Man 9.5 K/mm3 (1.8-7.7) H 06/20/17 06:28 Band Neutrophils # 2.8 K/mm3 06/20/17 06:28 Lymphocytes # (Manual) 1.9 K/mm3 (1.2-5.4) 06/20/17 06:28 Abs React Lymphs (Man) 0.0 K/mm3 06/20/17 06:28 Monocytes # (Manual) 1.6 K/mm3 (0.0-0.8) H 06/20/17 06:28 Eosinophils # (Manual) 0.0 K/mm3 (0.0-0.4) 06/20/17 06:28 Basophils # (Manual) 0.0 K/mm3 (0.0-0.1) 06/20/17 06:28 Metamyelocytes # 0.0 K/mm3 06/20/17 06:28 Myelocytes # 0.0 K/mm3 06/20/17 06:28 Promyelocytes # 0.0 K/mm3 06/20/17 06:28 Blast Cells # 0.0 K/mm3 06/20/17 06:28 WBC Morphology Not Reportable 06/20/17 06:28 Hypersegmented Neuts Few 06/20/17 06:28 Hyposegmented Neuts Not Reportable 06/20/17 06:28 Hypogranular Neuts Not Reportable 06/20/17 06:28 Smudge Cells Not Reportable 06/20/17 06:28 Toxic Granulation Not Reportable 06/20/17 06:28 Toxic Vacuolation Not Reportable 06/20/17 06:28 Dohle Bodies Not Reportable 06/20/17 06:28 Pelger-Huet Anomaly Not Reportable 06/20/17 06:28 Zee Rods Not Reportable 06/20/17 06:28 Platelet Estimate Appears normal 06/20/17 06:28 Clumped Platelets Not Reportable 06/20/17 06:28 Plt Clumps, EDTA Not Reportable 06/20/17 06:28 Large Platelets Not Reportable 06/20/17 06:28 Giant Platelets Not Reportable 06/20/17 06:28 Platelet Satelliting Not Reportable 06/20/17 06:28 Plt Morphology Comment Not Reportable 06/20/17 06:28 RBC Morphology Not Reportable 06/20/17 06:28 Dimorphic RBCs Not Reportable 06/20/17 06:28 Polychromasia Not Reportable 06/20/17 06:28 Hypochromasia Few 06/20/17 06:28 Poikilocytosis Not Reportable 06/20/17 06:28 Anisocytosis 1+ 06/20/17 06:28 Microcytosis Not Reportable 06/20/17 06:28 Macrocytosis Not Reportable 06/20/17 06:28 Spherocytes Not Reportable 06/20/17 06:28 Pappenheimer Bodies Not Reportable 06/20/17 06:28 Sickle Cells Not Reportable 06/20/17 06:28 Target Cells Not Reportable 06/20/17 06:28 Tear Drop Cells Not Reportable 06/20/17 06:28 Ovalocytes Few 06/20/17 06:28 Helmet Cells Not Reportable 06/20/17 06:28 Mendez-Hoberg Bodies Not Reportable 06/20/17 06:28 [place] Rings Not Reportable 06/20/17 06:28 [place] Cells Not Reportable 06/20/17 06:28 Bite Cells Not Reportable 06/20/17 06:28 Crenated Cell Not Reportable 06/20/17 06:28 Elliptocytes Not Reportable 06/20/17 06:28 Acanthocytes (Spur) Not Reportable 06/20/17 06:28 Rouleaux Not Reportable 06/20/17 06:28 Hemoglobin C Crystals Not Reportable 06/20/17 06:28 Schistocytes Not Reportable 06/20/17 06:28 Malaria parasites Not Reportable 06/20/17 06:28 Garrett Bodies Not Reportable 06/20/17 06:28 Hem Pathologist Commnt No 06/20/17 06:28 PT 42.5 Sec. (12.2-14.9) H 06/21/17 05:11 INR 4.21 (0.87-1.13) H 06/21/17 05:11 VBG pH 7.424 (7.320-7.420) H 06/19/17 Unknown Sodium 136 mmol/L (137-145) L 06/21/17 13:27 Potassium 3.7 mmol/L (3.6-5.0) D 06/21/17 13:27 Chloride 96.7 mmol/L (98-107) L 06/21/17 13:27 Carbon Dioxide 27 mmol/L (22-30) 06/21/17 13:27 Anion Gap 16 mmol/L 06/21/17 13:27 BUN 32 mg/dL (7-17) H 06/21/17 13:27 Creatinine 1.8 mg/dL (0.7-1.2) H D 06/21/17 13:27 Estimated GFR 36 ml/min 06/21/17 13:27 BUN/Creatinine Ratio 18 % 06/21/17 13:27 Glucose 94 mg/dL (65-100) 06/21/17 13:27 Lactic Acid 2.10 mmol/L (0.7-2.0) H* 06/19/17 16:52 Calcium 8.5 mg/dL (8.4-10.2) 06/21/17 13:27 Total Bilirubin 1.50 mg/dL (0.1-1.2) H 06/20/17 06:28 AST 13 units/L (5-40) 06/20/17 06:28 ALT 7 units/L (7-56) 06/20/17 06:28 Alkaline Phosphatase 98 units/L (35-129) 06/20/17 06:28 C-Reactive Protein 23.10 mg/dL (0.00-1.30) H 06/20/17 13:14 NT-Pro-B Natriuret Pep 2552 pg/mL (0-900) H 06/19/17 11:36 Total Protein 7.8 g/dL (6.3-8.2) 06/20/17 06:28 Albumin 3.3 g/dL (3.9-5) L 06/20/17 06:28 Albumin/Globulin Ratio 0.7 % 06/20/17 06:28 HCG, Qual Negative (Negative) 06/19/17 Unknown Urine Color Yellow (Yellow) 06/19/17 Unknown Urine Turbidity Clear (Clear) 06/19/17 Unknown Urine pH 8.0 (5.0-7.0) H 06/19/17 Unknown Ur Specific [place] 1.011 (1.003-1.030) 06/19/17 Unknown Urine Protein <15 mg/dl mg/dL (Negative) 06/19/17 Unknown Urine Glucose (UA) Neg mg/dL (Negative) 06/19/17 Unknown Urine Ketones Neg mg/dL (Negative) 06/19/17 Unknown Urine Blood Mod (Negative) 06/19/17 Unknown Urine Nitrite Neg (Negative) 06/19/17 Unknown Urine Bilirubin Neg (Negative) 06/19/17 Unknown Urine Urobilinogen < 2.0 mg/dL (<2.0) 06/19/17 Unknown Ur Leukocyte Esterase Neg (Negative) 06/19/17 Unknown Urine WBC (Auto) < 1.0 /HPF (0.0-6.0) 06/19/17 Unknown Urine RBC (Auto) 10.0 /HPF (0.0-6.0) 06/19/17 Unknown U Epithel Cells (Auto) 2.0 /HPF (0-13.0) 06/19/17 Unknown Urine Bacteria (Auto) 1+ /HPF (Negative) 06/19/17 Unknown Urine Mucus Few /HPF 06/19/17 Unknown
[2017-06-22 09:48] LABS: Basophils % (Auto) 0.4 % (0.0-1.8); Eosinophils % (Auto) 0.9 % (0.0-4.3); Hemoglobin 12.4 gm/dl (10.1-14.3); Mean Corpuscular HGB Conc 33 % (30-34); Mean Corpuscular Volume 78 fl (79-97); Platelet Count 241 K/mm3 (140-440); Red Blood Count 4.89 M/mm3 (3.65-5.03); Red Cell Distribution Width 18.1 % (13.2-15.2); White Blood Count 10.4 K/mm3 (4.5-11.0)
[2017-06-22 09:50] LABS: Mean Corpuscular Hemoglobin 25 pg (28-32)
[2017-06-22 10:00] LABS: Calcium 8.5 mg/dL (8.4-10.2); Chloride 99.4 mmol/L (98-107); Potassium 4.2 mmol/L (3.6-5.0)
[2017-06-22 10:02] LABS: INR 5.88 (0.87-1.13)
[2017-06-22] MEDS: DEMADEX PO SCH (10:28)
[2017-06-22] MEDS: CATAPRES PO SCH ×2 (10:31→21:12)
[2017-06-22] MEDS: LASIX IV SCH (10:32)
[2017-06-22] MEDS: ZESTRIL PO SCH ×2 (10:33→21:11)
[2017-06-22] MEDS: PEPCID PO SCH ×2 (10:35→21:10)
[2017-06-22] MEDS: LEVAQUIN 750MG/150ML 750 MG/150 ML BAG IV SCH (10:36)
--- NOTE | 2017-06-22 10:55 | Consultation ---
History of Present Illness - Reason for Consult Consult date: 06/22/17 acute renal failure Requesting physician: LATASHA GARCIA - History of Present Illness 52 y/o AAF HTN CHF and Mitral valve replacement comes in for increasing SOB..SOBat rest and while lying flat.Also has low grade fever.Incidentall has L leg swelling.No recent travel.No PnD attacks.No chest pain, cr was 1.8 yesterday , now 1.3 today Past Medical History Hx Hypertension: Yes Hx Heart Attack/AMI: Yes (double heart bypass 07/15) Hx Congestive Heart Failure: Yes (cardiomyopathy) Hx GERD: Yes (hiatal hernia) Hx COPD: Yes Additional medical history: Crohn's disease. Cardiomyopathy- left ventricle. Life vest in place. Surgical History Hx Coronary Stent: Yes Hx Open Heart Surgery: (mitral valve replacement (from old chart, pt. unsure)) Hx Pacemaker: Yes Hx Internal Defibrillator: Yes Additional Surgical History: bowel resection- December 2007, (3) Fissurectomies,. Hysterectomy. defibrillator placed 11/2015 Social History Smoking Status: Current Every Day Smoker Substance Use Type: None Fam Hx Htn Review of Systems ROS: Stated complaint: LEFT LEG SWOLLEN Other details as noted in HPI Comment: All other systems reviewed and negative Constitutional: chills, fever Eyes: denies: eye pain, eye discharge, vision change ENT: denies: ear pain, throat pain Respiratory: shortness of breath. denies: cough Cardiovascular: edema. denies: chest pain Gastrointestinal: denies: abdominal pain, nausea, diarrhea Genitourinary: denies: urgency, dysuria, discharge Musculoskeletal: arthralgia, myalgia. denies: back pain Skin: change in color. denies: rash Neurological: denies: headache, numbness Past History Past Medical History: heart failure, hypertension, hyperlipidemia Past Surgical History: valve replacement Social history: no significant social history, other. denies: smoking, alcohol abuse Medications and Allergies Allergies Allergy/AdvReac Type Severity Reaction Status Date / Time morphine Allergy Swelling Verified 06/10/15 08:19 nitroglycerin Allergy Angioedema Verified 06/10/15 08:19 NSAIDS (Non-Steroidal Allergy Swelling Verified 06/10/15 08:19 Anti-Inflamma Home Medications Medication Instructions Recorded Confirmed Last Taken Type Atorvastatin [Lipitor] 40 mg PO QHS 10/17/14 06/20/1706/14/15 History Warfarin [Coumadin] 5 mg PO QDAY 03/12/15 06/20/17 06/14/15 History cloNIDine [Catapres] 0.3 mg PO BID 06/13/15 06/20/17 06/14/15 History Cyclobenzaprine HCl [Flexeril 5 MG 5 mg PO Q8HR PRN #10 tab 07/21/16 06/20/17 Unknown Rx TAB] Gabapentin [Neurontin] 300 mg PO TID 07/21/16 06/20/17 Unknown History Torsemide [Demadex] 20 mg PO QAM 07/21/16 06/20/17 Unknown History Dilaudid 4 mg PO BID 06/22/17 06/22/17 06/19/17 History oxyCODONE 15 mg PO Q6HR 06/22/17 06/22/17 06/19/17 History Active Meds: Active Medications Acetaminophen (Tylenol) 650 mg PO Q4H PRN PRN Reason: Pain MILD(1-3)/Fever >100.5/VACA Last Admin: 06/20/17 23:21 Dose: 650 mg Bisacodyl (Dulcolax) 10 mg OR QDAY PRN PRN Reason: Constipation unrelieved by MOM Clonidine HCl (Catapres) 0.3 mg PO BID [facility] Last Admin: 06/22/17 10:31 Dose: 0.3 mg Cyclobenzaprine HCl (Flexeril) 5 mg PO Q8H PRN PRN Reason: Muscle Spasm Last Admin: 06/21/17 21:05 Dose: 5 mg Famotidine (Pepcid) 20 mg PO BID [facility] Last Admin: 06/22/17 10:35 Dose: 20 mg Furosemide (Lasix) 40 mg IV QDAY [facility] Last Admin: 06/22/17 10:32 Dose: 40 mg Gabapentin (Neurontin) 300 mg PO TID [facility] Last Admin: 06/21/17 21:06 Dose: 300 mg Hydromorphone HCl (Dilaudid) 1 mg IV Q4H PRN PRN Reason: Pain , Severe (7-10) Last Admin: 06/22/17 10:32 Dose: 1 mg Vancomycin HCl (Vancomycin/Ns 1 Gm/250 Ml) 1 gm in 250 mls @ 166.667 mls/hr IV Q12H [facility] Last Admin: 06/22/17 01:54 Dose: 166.667 mls/hr Levofloxacin/Dextrose (Levaquin 750mg/150ml) 750 mg in 150 mls @ 100 mls/hr IV Q48HR [facility] PRN Reason: Protocol Last Admin: 06/22/17 10:36 Dose: 100 mls/hr Lisinopril (Zestril) 40 mg PO BID [facility] Last Admin: 06/22/17 10:33 Dose: 40 mg Magnesium Hydroxide (Milk Of Magnesia) 30 ml PO Q4H PRN PRN Reason: Constipation Ondansetron HCl (Zofran) 4 mg IV Q8H PRN PRN Reason: N/V unrelieved by Reglan Oxycodone/Acetaminophen (Percocet 5/325) 1 tab PO Q6H PRN PRN Reason: Pain, Moderate (4-6) Last Admin: 06/22/17 07:25 Dose: 1 tab Torsemide (Demadex) 20 mg PO QDAY [facility] Last Admin: 06/22/17 10:28 Dose: 20 mg Vancomycin HCl (Vancomycin Pharmacy To Dose) 1 each IV PKCONSULT [facility] PRN Reason: Protocol Warfarin Sodium (Coumadin Pharmacy To Dose) 1 [facility] Exam - Vital Signs Vital signs: Vital Signs Temp Pulse Resp BP Pulse Ox 102.7 F H 95 H 22 176/96 100 06/19/17 11:31 06/19/17 11:31 06/19/17 11:31 06/19/17 11:31 06/19/17 11:31 - Physical Exam Narrative exam: General appearance: Present: mild distress, well-nourished - EENT Eyes: Present: PERRL ENT: hearing intact, clear oral mucosa - Neck Neck: Present: supple, normal ROM - Respiratory Respiratory effort: normal Respiratory: bilateral: CTA - Cardiovascular Heart rate: 90 Rhythm: regular Heart Sounds: Present: S1 & S2. Absent: rub, click - Extremities Extremities: pulses symmetrical, No edema Extremity abnormal: edema Peripheral Pulses: within normal limits - Abdominal General gastrointestinal: Present: soft, non-tender, non-distended, normal bowel sounds Female genitourinary: Present: normal - Rectal Rectal Exam: deferred - Integumentary Integumentary: Present: clear, warm, dry - Musculoskeletal Musculoskeletal: gait normal, strength equal bilaterally - Psychiatric Psychiatric: appropriate mood/affect, intact judgment & insight - Neurologic Neurologic: CNII-XII intact, moves all extremities Results - Lab Results 06/22/17 08:44 06/22/17 08:57 Most recent lab results Calcium 8.5 mg/dL (8.4-10.2) 06/22/17 08:57 Assessment and Plan Impression: * ALBERTA * CAD * Cardiomyopathy * COPD * HTN * pyuria Plan: * cr is better today * strict i/os * diuresis per cards, will hold torsemide will receiving iv lasix * avoid nephrotoxins * abx per primary team * continue supportive care * will see prn
[2017-06-22] MEDS: NEURONTIN PO SCH ×3 (10:56→21:09)
--- NOTE | 2017-06-22 12:29 | Progress Note ---
Assessment and Plan Sepsis -MRSA Lower extremity Cellulitis Mitral valve replacement, mechanical on warfarin for oral anticoagulation well functioning mechanical mitral valve on echo, EF 45-50%. Obesity Hypokalemia Subjective Date of service: 06/22/17 Principal diagnosis: CHF Interval history: No cardiac complaints. Short burst of NVST on telemetry this morning. Patient remained asymptomatic. Objective Vital Signs Temp Pulse Pulse Resp Resp BP BP 06/22/17 10:33 122/73 06/22/17 10:31 122/73 06/22/17 08:40 99.7 F H 70 18 122/73 06/22/17 07:25 18 06/22/17 05:26 18 06/22/17 01:54 18 06/22/17 00:33 98.7 F 58 L 16 99/59 06/21/17 23:18 16 06/21/17 22:00 89 20 20 06/21/17 21:09 62 100/64 06/21/17 21:08 62 100/64 06/21/17 20:57 16 06/21/17 20:00 99.4 F 62 16 100/64 06/21/17 16:35 99.9 F H 73 20 106/54 Pulse Ox 06/22/17 10:33 06/22/17 10:31 06/22/17 08:40 06/22/17 07:25 06/22/17 05:26 06/22/17 01:54 06/22/17 00:33 97 06/21/17 23:18 06/21/17 22:00 06/21/17 21:09 06/21/17 21:08 06/21/17 20:57 06/21/17 20:00 94 06/21/17 16:35 - Physical Examination General: No Apparent Distress, Other (obese) HEENT: Positive: PERRL Neck: Positive: trachea midline. Negative: JVD/HJR Neuro: Positive: Grossly Intact Abdomen: Positive: Unremarkable, Active Bowel Sounds Extremities: Present: normal. Absent: edema - Labs and Meds Coagulation 06/22/17 Range/Units 08:44 PT 55.3 H (12.2-14.9) Sec. INR 5.88 H* (0.87-1.13) CBC 06/22/17 Range/Units 08:44 WBC 10.4 (4.5-11.0) K/mm3 RBC 4.89 (3.65-5.03) M/mm3 Hgb 12.4 (10.1-14.3) gm/dl Hct 38.0 (30.3-42.9) % Plt Count 241 (140-440) K/mm3 Lymph # 1.1 L (1.2-5.4) K/mm3 [place] # 1.0 H (0.0-0.8) K/mm3 Eos # 0.1 (0.0-0.4) K/mm3 Baso # 0.0 (0.0-0.1) K/mm3 Comprehensive Metabolic Panel 06/21/17 06/22/17 Range/Units 13:27 08:57 Sodium 136 L 136 L (137-145) mmol/L Potassium 3.7 D 4.2 (3.6-5.0) mmol/L Chloride 96.7 L 99.4 (98-107) mmol/L Carbon Dioxide 27 22 (22-30) mmol/L BUN 32 H 27 H (7-17) mg/dL Creatinine 1.8 H D 1.3 H (0.7-1.2) mg/dL Glucose 94 123 H (65-100) mg/dL Calcium 8.5 8.5 (8.4-10.2) mg/dL - Imaging and Cardiology EKG: report reviewed (LVH with IVCD)
[2017-06-22] MEDS ORDERED: NARCAN 0.4 MG/1 ML IV PRN (13:13)
--- NOTE | 2017-06-22 13:28 | Progress Note ---
Assessment and Plan Assessment: 1) Sepsis: better. Etiology - from MRSA seppticemia +/- left leg cellulitis+/- presumed pneumonia. CRP=23 2) Left leg cellulitis 3) Presumed pneumonia versus COPD exacerbation: Increased yellow sputum production -CXR +pulmonary edema 4) Complicated MRSA septicemia ? 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 Patient has a mechanical MV. TTE showed no vegetation and functional MV 5) COPD 6) History of coronary artery disease with previous MT and CABG 7) Hypertension 8) Crohn's disease 9)History of MRSA septicemia and endocarditis in the past seen at [facility] ?? 10) ALBERTA worsening Plan: -obtain PAOLO in view of complicated MRSA septicemia with MV and history of endocarditis -repeat blood cultures -request medical records from [facility] and [facility] -left leg CT without contrast -lumbar spine MRI w/o constrast -f/u procalcitonin -stop levaquin -continue vancomycin renally dosed -Arterial / venous US leg - pending -repeat CXR Thank you Dr Starks for your consultation, will follow up with you. Roberta Morales MD Infectious Diseases Specialist [facility] M [phone] O [phone] Subjective Date of service: 06/22/17 Principal diagnosis: CHF Interval history: Feels better however c/o severe lower back pain and left leg pain. No fever. Current Antimicrobials: Levaquin 06/19 Vancomycin 06/20 Previous Antimicrobials: Microbiology: Blood cultures: 06/19 MRSA Urine culture: 06/20 10-100K mixed Influenza negative Objective - Exam Narrative Exam: General appearance: Alert in NAD, conversant Eyes: anicteric sclerae, moist conjunctivae; no lid-lag; PERRLA HENT: Atraumatic; oropharynx clear Neck: Trachea midline; supple, no thyromegaly or lymphadenopathy Lungs: bibaslar crackles CV: RRR, no murmurs Abdomen: Soft, non-tender Extremities: +left leg discoloration, heat and TTP, +right ankle discoloration. Skin: Normal temperature, turgor and texture; no rash, ulcers or subcutaneous nodules Psych: Appropriate affect, alert and oriented to person, place and time. Neuro: alert and oriented x 3. Moving all extermities Lines: No CVL / PICC - Constitutional Vitals: Vital Signs Temp Pulse Resp BP Pulse Ox 99.7 F H 70 18 122/73 97 06/22/17 08:40 06/22/17 08:40 06/22/17 08:40 06/22/17 10:33 06/22/17 00:33 Temperature -Last 24 Hours Temperature 99.7 F Temperature 98.7 F Temperature 99.4 F Temperature 99.9 F - Labs CBC & Chem 7: 06/22/17 08:44 06/22/17 08:57 Labs: Abnormal lab results 06/21/17 06/22/17 06/22/17 Range/Units 13:27 08:44 08:44 MCV 78 L (79-97) fl MCH 25 L (28-32) pg RDW 18.1 H (13.2-15.2) % Lymph % (Auto) 10.5 L (13.4-35.0) % [place] % (Auto) 9.7 H (0.0-7.3) % Lymph # 1.1 L (1.2-5.4) K/mm3 [place] # 1.0 H (0.0-0.8) K/mm3 Seg Neutrophils % 78.5 H (40.0-70.0) % Seg Neutrophils # 8.2 H (1.8-7.7) K/mm3 PT 55.3 H (12.2-14.9) Sec. INR 5.88 H* (0.87-1.13) Sodium 136 L (137-145) mmol/L Chloride 96.7 L (98-107) mmol/L BUN 32 H (7-17) mg/dL Creatinine 1.8 H D (0.7-1.2) mg/dL Glucose (65-100) mg/dL 06/22/17 Range/Units 08:57 MCV (79-97) fl MCH (28-32) pg RDW (13.2-15.2) % Lymph % (Auto) (13.4-35.0) % [place] % (Auto) (0.0-7.3) % Lymph # (1.2-5.4) K/mm3 [place] # (0.0-0.8) K/mm3 Seg Neutrophils % (40.0-70.0) % Seg Neutrophils # (1.8-7.7) K/mm3 PT (12.2-14.9) Sec. INR (0.87-1.13) Sodium 136 L (137-145) mmol/L Chloride (98-107) mmol/L BUN 27 H (7-17) mg/dL Creatinine 1.3 H (0.7-1.2) mg/dL Glucose 123 H (65-100) mg/dL
--- NOTE | 2017-06-22 13:58 | XRay Report ---
CHEST 2 VIEWS INDICATION: CHF. COMPARISON: 06/19/2017 FINDINGS: Frontal and lateral chest radiographs demonstrate stable sternotomy wires, prosthetic heart valve, left lower chest wall battery pack with single precordial lead and osseous structures. Mildly crowded lung markings and slight mid to lower lung horizontal atelectasis. Slight exaggerated cardiomediastinal silhouette. No pleural effusions or cephalization. CONCLUSION: No CHF radiographically with various other incidental findings, as above. Thank you for the opportunity to participate in this patient's care.
[2017-06-22] MEDS: DILAUDID PO SCH ×2 (14:19→21:09)
[2017-06-22] MEDS ORDERED: COUMADIN NO DOSE TODAY PO ONE (17:00)
[2017-06-22] MEDS ORDERED: OXYCODONE 15 MG PO SCH (18:00)
[2017-06-22] MEDS: ROXICODONE PO SCH (18:14)
[2017-06-22] MEDS ORDERED: DILAUDID 4 MG PO SCH (22:00)
[2017-06-23] MEDS: ROXICODONE PO SCH ×4 (01:06→17:53)
[2017-06-23] MEDS: VANCOMYCIN/NS 1 GM/250 ML 1 GM/250 ML BAG IV SCH ×2 (07:33→17:55)
[2017-06-23] MEDS ORDERED: HURRICAINE ONE 20% TOPICAL SPRAY MM (08:07)
[2017-06-23] MEDS ORDERED: SUBLIMAZE ONE (08:08)
[2017-06-23] MEDS ORDERED: VERSED IV ONE ×2 (08:08→08:12)
[2017-06-23] MEDS ORDERED: SUBLIMAZE IV ONE (08:12)
[2017-06-23 08:47] LABS: Calcium 8.7 mg/dL (8.4-10.2); Potassium 3.6 mmol/L (3.6-5.0)
[2017-06-23 08:49] LABS: INR 5.55 (0.87-1.13)
--- NOTE | 2017-06-23 09:36 | Progress Note ---
Assessment and Plan Assessment and plan: Sepsis. Blood cultures reveal MRSA. ID following. Currently with antibiotics of Levaquin and vancomycin. Complicated MRSA septicemia ? recurrent. 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 Patient has a mechanical MV. TTE showed no vegetation and functional MV. PAOLO today. Left lower extremity cellulitis. Continue IV antibiotics as above. Acute diastolic CHF exacerbation. Await echocardiogram results. Cardiology following. Continue diuresis per cardiology. Check chest x-ray and BNP Acute COPD exacerbation. Acute renal failure. Etiology likely secondary to acute kidney injury from sepsis/ATN. Nephrology consultation. Dilated nonischemic cardiomyopathy. History of AICD insertion, which was extracted due to infection of the ICD. EF 55%. Nonsustained V. tach. Patient with a 4 beat run of V. tach this morning. Etiology likely secondary to hypokalemia. Replete potassium and continue telemetry monitoring. Hypokalemia. Replete potassium. Crohn's disease. Stable. Hypertension. Continue antihypertensive medications. s/p mitral valve replacement. Hold coumadin--INR > 5 Coagulopathy. Hold coumadin Obesity. Chronic pain syndrome. Continue Dilaudid and OxyContin. I confirmed the medications with her pain clinic at Dr. Luna's office ([phone]) DVT prophylaxis. History Interval history: No new issues. Hospitalist Physical - Constitutional Vitals: Temp Pulse Resp BP Pulse Ox 100.4 F H 68 18 98/62 93 06/23/17 03:58 06/23/17 03:58 06/23/17 03:58 06/23/17 03:58 06/23/17 03:58 General appearance: Present: no acute distress, obese - EENT Eyes: Present: PERRL, EOM intact ENT: hearing intact, clear oral mucosa, dentition normal - Neck Neck: Present: supple, normal ROM - Respiratory Respiratory effort: normal Respiratory: bilateral: CTA - Cardiovascular Rhythm: regular Heart Sounds: Present: S1 & S2. Absent: gallop, rub - Extremities Extremities: no ischemia, No edema, Full ROM - Abdominal General gastrointestinal: soft, non-tender, non-distended, normal bowel sounds - Integumentary Integumentary: Present: clear, warm, dry - Neurologic Neurologic: CNII-XII intact, moves all extremities Results - Labs CBC & Chem 7: 06/22/17 08:44 06/23/17 08:25 Labs: Laboratory Last Values WBC 10.4 K/mm3 (4.5-11.0) 06/22/17 08:44 RBC 4.89 M/mm3 (3.65-5.03) 06/22/17 08:44 Hgb 12.4 gm/dl (10.1-14.3) 06/22/17 08:44 Hct 38.0 % (30.3-42.9) 06/22/17 08:44 MCV 78 fl (79-97) L 06/22/17 08:44 MCH 25 pg (28-32) L 06/22/17 08:44 MCHC 33 % (30-34) 06/22/17 08:44 RDW 18.1 % (13.2-15.2) H 06/22/17 08:44 Plt Count 241 K/mm3 (140-440) 06/22/17 08:44 Lymph % (Auto) 10.5 % (13.4-35.0) L 06/22/17 08:44 [place] % (Auto) 9.7 % (0.0-7.3) H 06/22/17 08:44 Eos % (Auto) 0.9 % (0.0-4.3) 06/22/17 08:44 Baso % (Auto) 0.4 % (0.0-1.8) 06/22/17 08:44 Lymph # 1.1 K/mm3 (1.2-5.4) L 06/22/17 08:44 [place] # 1.0 K/mm3 (0.0-0.8) H 06/22/17 08:44 Eos # 0.1 K/mm3 (0.0-0.4) 06/22/17 08:44 Baso # 0.0 K/mm3 (0.0-0.1) 06/22/17 08:44 Add Manual Diff Complete 06/20/17 06:28 Total Counted 100 06/20/17 06:28 Seg Neutrophils % 78.5 % (40.0-70.0) H 06/22/17 08:44 Seg Neuts % (Manual) 60.0 % (40.0-70.0) 06/20/17 06:28 Band Neutrophils % 18.0 % 06/20/17 06:28 Lymphocytes % (Manual) 12.0 % (13.4-35.0) L 06/20/17 06:28 Reactive Lymphs % (Man) 0 % 06/20/17 06:28 Monocytes % (Manual) 10.0 % (0.0-7.3) H 06/20/17 06:28 Eosinophils % (Manual) 0 % (0.0-4.3) 06/20/17 06:28 Basophils % (Manual) 0 % (0.0-1.8) 06/20/17 06:28 Metamyelocytes % 0 % 06/20/17 06:28 Myelocytes % 0 % 06/20/17 06:28 Promyelocytes % 0 % 06/20/17 06:28 Blast Cells % 0 % 06/20/17 06:28 Nucleated RBC % Not Reportable 06/20/17 06:28 Seg Neutrophils # 8.2 K/mm3 (1.8-7.7) H 06/22/17 08:44 Seg Neutrophils # Man 9.5 K/mm3 (1.8-7.7) H 06/20/17 06:28 Band Neutrophils # 2.8 K/mm3 06/20/17 06:28 Lymphocytes # (Manual) 1.9 K/mm3 (1.2-5.4) 06/20/17 06:28 Abs React Lymphs (Man) 0.0 K/mm3 06/20/17 06:28 Monocytes # (Manual) 1.6 K/mm3 (0.0-0.8) H 06/20/17 06:28 Eosinophils # (Manual) 0.0 K/mm3 (0.0-0.4) 06/20/17 06:28 Basophils # (Manual) 0.0 K/mm3 (0.0-0.1) 06/20/17 06:28 Metamyelocytes # 0.0 K/mm3 06/20/17 06:28 Myelocytes # 0.0 K/mm3 06/20/17 06:28 Promyelocytes # 0.0 K/mm3 06/20/17 06:28 Blast Cells # 0.0 K/mm3 06/20/17 06:28 WBC Morphology Not Reportable 06/20/17 06:28 Hypersegmented Neuts Few 06/20/17 06:28 Hyposegmented Neuts Not Reportable 06/20/17 06:28 Hypogranular Neuts Not Reportable 06/20/17 06:28 Smudge Cells Not Reportable 06/20/17 06:28 Toxic Granulation Not Reportable 06/20/17 06:28 Toxic Vacuolation Not Reportable 06/20/17 06:28 Dohle Bodies Not Reportable 06/20/17 06:28 Pelger-Huet Anomaly Not Reportable 06/20/17 06:28 Zee Rods Not Reportable 06/20/17 06:28 Platelet Estimate Appears normal 06/20/17 06:28 Clumped Platelets Not Reportable 06/20/17 06:28 Plt Clumps, EDTA Not Reportable 06/20/17 06:28 Large Platelets Not Reportable 06/20/17 06:28 Giant Platelets Not Reportable 06/20/17 06:28 Platelet Satelliting Not Reportable 06/20/17 06:28 Plt Morphology Comment Not Reportable 06/20/17 06:28 RBC Morphology Not Reportable 06/20/17 06:28 Dimorphic RBCs Not Reportable 06/20/17 06:28 Polychromasia Not Reportable 06/20/17 06:28 Hypochromasia Few 06/20/17 06:28 Poikilocytosis Not Reportable 06/20/17 06:28 Anisocytosis 1+ 06/20/17 06:28 Microcytosis Not Reportable 06/20/17 06:28 Macrocytosis Not Reportable 06/20/17 06:28 Spherocytes Not Reportable 06/20/17 06:28 Pappenheimer Bodies Not Reportable 06/20/17 06:28 Sickle Cells Not Reportable 06/20/17 06:28 Target Cells Not Reportable 06/20/17 06:28 Tear Drop Cells Not Reportable 06/20/17 06:28 Ovalocytes Few 06/20/17 06:28 Helmet Cells Not Reportable 06/20/17 06:28 [place] Bodies Not Reportable 06/20/17 06:28 [place] Rings Not Reportable 06/20/17 06:28 [place] Cells Not Reportable 06/20/17 06:28 Bite Cells Not Reportable 06/20/17 06:28 Crenated Cell Not Reportable 06/20/17 06:28 Elliptocytes Not Reportable 06/20/17 06:28 Acanthocytes (Spur) Not Reportable 06/20/17 06:28 Rouleaux Not Reportable 06/20/17 06:28 Hemoglobin C Crystals Not Reportable 06/20/17 06:28 Schistocytes Not Reportable 06/20/17 06:28 Malaria parasites Not Reportable 06/20/17 06:28 [place] Bodies Not Reportable 06/20/17 06:28 Hem Pathologist Commnt No 06/20/17 06:28 PT 52.8 Sec. (12.2-14.9) H 06/23/17 08:25 INR 5.55 (0.87-1.13) H* 06/23/17 08:25 VBG pH 7.424 (7.320-7.420) H 06/19/17 Unknown Sodium 135 mmol/L (137-145) L 06/23/17 08:25 Potassium 3.6 mmol/L (3.6-5.0) 06/23/17 08:25 Chloride 98.0 mmol/L (98-107) 06/23/17 08:25 Carbon Dioxide 26 mmol/L (22-30) 06/23/17 08:25 Anion Gap 15 mmol/L 06/23/17 08:25 BUN 29 mg/dL (7-17) H 06/23/17 08:25 Creatinine 1.7 mg/dL (0.7-1.2) H 06/23/17 08:25 Estimated GFR 38 ml/min 06/23/17 08:25 BUN/Creatinine Ratio 17 % 06/23/17 08:25 Glucose 97 mg/dL (65-100) 06/23/17 08:25 Lactic Acid 2.10 mmol/L (0.7-2.0) H* 06/19/17 16:52 Calcium 8.7 mg/dL (8.4-10.2) 06/23/17 08:25 Total Bilirubin 1.50 mg/dL (0.1-1.2) H 06/20/17 06:28 AST 13 units/L (5-40) 06/20/17 06:28 ALT 7 units/L (7-56) 06/20/17 06:28 Alkaline Phosphatase 98 units/L (35-129) 06/20/17 06:28 C-Reactive Protein 15.90 mg/dL (0.00-1.30) H 06/22/17 15:23 NT-Pro-B Natriuret Pep 1085 pg/mL (0-900) H 06/23/17 08:25 Total Protein 7.8 g/dL (6.3-8.2) 06/20/17 06:28 Albumin 3.3 g/dL (3.9-5) L 06/20/17 06:28 Albumin/Globulin Ratio 0.7 % 06/20/17 06:28 HCG, Qual Negative (Negative) 06/19/17 Unknown Urine Color Yellow (Yellow) 06/19/17 Unknown Urine Turbidity Clear (Clear) 06/19/17 Unknown Urine pH 8.0 (5.0-7.0) H 06/19/17 Unknown Ur Specific [place] 1.011 (1.003-1.030) 06/19/17 Unknown Urine Protein <15 mg/dl mg/dL (Negative) 06/19/17 Unknown Urine Glucose (UA) Neg mg/dL (Negative) 06/19/17 Unknown Urine Ketones Neg mg/dL (Negative) 06/19/17 Unknown Urine Blood Mod (Negative) 06/19/17 Unknown Urine Nitrite Neg (Negative) 06/19/17 Unknown Urine Bilirubin Neg (Negative) 06/19/17 Unknown Urine Urobilinogen < 2.0 mg/dL (<2.0) 06/19/17 Unknown Ur Leukocyte Esterase Neg (Negative) 06/19/17 Unknown Urine WBC (Auto) < 1.0 /HPF (0.0-6.0) 06/19/17 Unknown Urine RBC (Auto) 10.0 /HPF (0.0-6.0) 06/19/17 Unknown U Epithel Cells (Auto) 2.0 /HPF (0-13.0) 06/19/17 Unknown Urine Bacteria (Auto) 1+ /HPF (Negative) 06/19/17 Unknown Urine Mucus Few /HPF 06/19/17 Unknown Vancomycin Trough 16.7 ug/mL (5.0-20.0) 06/22/17 15:23
--- NOTE | 2017-06-23 10:08 | Progress Note ---
Assessment and Plan Impression: * ALBERTA * CAD * Cardiomyopathy * COPD * HTN * pyuria Plan: * cr is worse today * hold diuretics * strict i/os * diuresis per cards * avoid nephrotoxins * abx per primary team * continue supportive care Subjective Date of service: 06/30/17 Principal diagnosis: CHF Interval history: resting well in bed Objective - Exam Narrative Exam: General appearance: Present: mild distress, well-nourished - EENT Eyes: Present: PERRL ENT: hearing intact, clear oral mucosa - Neck Neck: Present: supple, normal ROM - Respiratory Respiratory effort: normal Respiratory: bilateral: CTA - Cardiovascular Heart rate: 90 Rhythm: regular Heart Sounds: Present: S1 & S2. Absent: rub, click - Extremities Extremities: pulses symmetrical, No edema Extremity abnormal: edema Peripheral Pulses: within normal limits - Abdominal General gastrointestinal: Present: soft, non-tender, non-distended, normal bowel sounds Female genitourinary: Present: normal - Rectal Rectal Exam: deferred - Integumentary Integumentary: Present: clear, warm, dry - Musculoskeletal Musculoskeletal: gait normal, strength equal bilaterally - Psychiatric Psychiatric: appropriate mood/affect, intact judgment & insight - Neurologic Neurologic: CNII-XII intact, moves all extremities - Vital Signs Vital signs: Vital Signs - 12hr 06/23/17 06/23/17 00:23 03:58 Temperature 98.8 F 100.4 F H Pulse Rate 69 68 Respiratory 18 18 Rate Blood Pressure 93/52 98/62 O2 Sat by Pulse 96 93 Oximetry - Lab 06/22/17 08:44 06/23/17 08:25 Most recent lab results Calcium 8.7 mg/dL (8.4-10.2) 06/23/17 08:25
[2017-06-23] MEDS: DILAUDID PO SCH ×2 (10:22→22:36)
[2017-06-23] MEDS: PEPCID PO SCH ×2 (10:22→22:36)
[2017-06-23] MEDS: NEURONTIN PO SCH ×3 (10:28→20:00)
--- NOTE | 2017-06-23 10:57 | Progress Note ---
Assessment and Plan MRSA Lower extremity Cellulitis Acute renal failure Mitral valve replacement, mechanical on warfarin for oral anticoagulation. Pharmacy following. well functioning mechanical mitral valve on echo, EF 45-50% on echo this admission. Cardiac cath 2012 prior to her valve surgery revealed no significant coronary disease, and she did not require bypass surgery. Resolving Nonischemic cardiomyopathy Presence of AICD Obesity Hypokalemia Plan: Continue medical therapy for nonischemic cardiomyopathy Oral anticoagulation for mechanical mitral valve. PAOLO for rule out endocarditis when INR <4. Subjective Date of service: 06/23/17 Principal diagnosis: CHF Interval history: PAOLO cancelled due to supra therapeutic INR at 5.5. Objective Vital Signs Temp Pulse Resp BP BP Pulse Ox 06/23/17 10:40 98.6 F 72 18 102/56 91 06/23/17 10:35 96 06/23/17 03:58 100.4 F H 68 18 98/62 93 06/23/17 00:23 98.8 F 69 18 93/52 96 06/22/17 21:12 78 124/82 06/22/17 21:11 78 124/82 06/22/17 19:18 100.4 F H 78 18 124/82 100 06/22/17 16:04 100.1 F H 78 24 111/65 - Physical Examination General: No Apparent Distress, Other (obese) HEENT: Positive: PERRL Neck: Positive: trachea midline Cardiac: Positive: Reg Rate and Rhythm Neuro: Positive: Grossly Intact - Labs and Meds Coagulation 06/23/17 Range/Units 08:25 PT 52.8 H (12.2-14.9) Sec. INR 5.55 H* (0.87-1.13) Comprehensive Metabolic Panel 06/23/17 Range/Units 08:25 Sodium 135 L (137-145) mmol/L Potassium 3.6 (3.6-5.0) mmol/L Chloride 98.0 (98-107) mmol/L Carbon Dioxide 26 (22-30) mmol/L BUN 29 H (7-17) mg/dL Creatinine 1.7 H (0.7-1.2) mg/dL Glucose 97 (65-100) mg/dL Calcium 8.7 (8.4-10.2) mg/dL - Imaging and Cardiology EKG: report reviewed (LVH with IVCD)
--- NOTE | 2017-06-23 11:49 | Progress Note ---
Assessment and Plan Assessment: 1) Sepsis: still fever. Etiology - from MRSA seppticemia +/- left leg cellulitis+/- presumed pneumonia. CRP=23-->15 2) Left leg cellulitis - better 3) Presumed pneumonia versus COPD exacerbation: Increased yellow sputum production -CXR +pulmonary edema 4) Complicated MRSA septicemia ? 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 Patient has a mechanical MV and AICD. TTE showed no vegetation and functional MV 5) COPD 6) History of coronary artery disease with previous NC and CABG 7) Hypertension 8) Crohn's disease 9)History of MRSA septicemia and endocarditis in the past seen at [facility] ?? 10) ALBERTA Plan: -PAOLO - pending -follow-up repeat blood cultures -request medical records from [facility] and [facility] - pending -left leg CT without contrast -lumbar spine MRI w/o constrast -f/u procalcitonin -stop levaquin -continue vancomycin renally dosed -Arterial / venous US leg - pending Thank you Dr Starks for your consultation, will follow up with you. Roberta Morales MD Infectious Diseases Specialist [facility] M [phone] O [phone] Subjective Date of service: 06/23/17 Principal diagnosis: CHF Interval history: Feels better still c/o lower back pain and left leg pain. Still low grade fever 100.4 Current Antimicrobials: Levaquin 06/19 Vancomycin 06/20 Previous Antimicrobials: Microbiology: Blood cultures: 06/19 MRSA 06/22 ngtd Urine culture: 06/20 10-100K mixed Influenza negative Objective - Exam Narrative Exam: General appearance: Alert in NAD, conversant Eyes: anicteric sclerae, moist conjunctivae; no lid-lag; PERRLA HENT: Atraumatic; oropharynx clear Neck: Trachea midline; supple, no thyromegaly or lymphadenopathy Lungs: bibasilar crackles CV: RRR, no murmurs Abdomen: Soft, non-tender Extremities: +left leg discoloration, heat and TTP, +right ankle discoloration. Skin: Normal temperature, turgor and texture; no rash, ulcers or subcutaneous nodules Psych: Appropriate affect, alert and oriented to person, place and time. Neuro: alert and oriented x 3. Moving all extermities Lines: No CVL / PICC - Constitutional Vitals: Vital Signs Temp Pulse Resp BP Pulse Ox 98.6 F 72 18 102/56 91 06/23/17 10:40 06/23/17 10:40 06/23/17 10:40 06/23/17 10:40 06/23/17 10:40 Temperature -Last 24 Hours Temperature 98.6 F Temperature 100.4 F Temperature 98.8 F Temperature 100.4 F Temperature 100.1 F - Labs CBC & Chem 7: 06/22/17 08:44 06/23/17 08:25 Labs: Abnormal lab results 06/22/17 06/23/17 06/23/17 Range/Units 15:23 08:25 08:25 PT (12.2-14.9) Sec. INR (0.87-1.13) Sodium 135 L (137-145) mmol/L BUN 29 H (7-17) mg/dL Creatinine 1.7 H (0.7-1.2) mg/dL C-Reactive Protein 15.90 H (0.00-1.30) mg/dL NT-Pro-B Natriuret Pep 1085 H (0-900) pg/mL 06/23/17 Range/Units 08:25 PT 52.8 H (12.2-14.9) Sec. INR 5.55 H* (0.87-1.13) Sodium (137-145) mmol/L BUN (7-17) mg/dL Creatinine (0.7-1.2) mg/dL C-Reactive Protein (0.00-1.30) mg/dL NT-Pro-B Natriuret Pep (0-900) pg/mL
[2017-06-23] MEDS: CATAPRES PO SCH ×2 (11:58→22:52)
[2017-06-23] MEDS: ZESTRIL PO SCH ×2 (11:58→22:52)
[2017-06-23] MEDS: LASIX IV SCH (12:07)
[2017-06-23] MEDS ORDERED: COUMADIN NO DOSE TODAY PO ONE (17:00)
--- NOTE | 2017-06-23 18:12 | Cat Scan Report ---
FINAL REPORT EXAM: CT LUMBAR SPINE WO CON HISTORY: severe MRSA septicemia eval for vertebral osteomye TECHNIQUE: Spiral CT scanning of the lumbar spine, with axial images and multiplanar reformations. PRIORS: None. FINDINGS: Mild osteopenia. Mild anterolisthesis in the L4-5 level secondary to facet arthrosis, with moderate central spinal canal and more pronounced neural foraminal narrowing. Multilevel degenerative spondylosis primarily in the mid-lower lumbar spine posterior elements. Remainder of disc spaces and endplates maintained without cortical destruction. No acute compression deformity or gross malalignment of lumbar vertebral bodies. No acute fracture identified. No acute, osseous central spinal canal encroachment. Paraspinal soft tissues grossly unremarkable. IMPRESSION: 1. Degenerative spondylosis, primarily in L4-5 level as reported. 2. No other acute findings.
--- NOTE | 2017-06-23 18:20 | Cat Scan Report ---
FINAL REPORT EXAM: CT LOWER EXTREMITY LT WO CON HISTORY: complicated cellulitis with MRSA septicemia TECHNIQUE: Spiral CT scanning of the left lower extremity, from hip to foot. No IV contrast administered. Multiplanar reformations. PRIORS: None. FINDINGS: Examination is limited due to lack of IV contrast administration. No apparent fracture, dislocation or obvious osseous destruction. Mild subcutaneous edema in the distal 2/3 of calf and foot regions. No discrete or loculated fluid collection. Underlying musculature and remainder of surrounding soft tissues grossly unremarkable. IMPRESSION: 1. No acute osseous abnormality. 2. Mild subcutaneous edema in left calf and foot may represent vascular insufficiency versus nonspecific postinflammatory change or cellulitis. Correlate clinically.
[2017-06-24] MEDS: TYLENOL PO PRN (01:26)
[2017-06-24 03:23] LABS: INR 5.16 (0.87-1.13)
[2017-06-24] MEDS: DILAUDID IV PRN ×4 (03:45→18:43)
[2017-06-24] MEDS: ROXICODONE PO SCH ×4 (06:30→17:01)
[2017-06-24 09:01] LABS: Calcium 8.9 mg/dL (8.4-10.2); Chloride 98.4 mmol/L (98-107); Potassium 3.6 mmol/L (3.6-5.0)
[2017-06-24] MEDS: DILAUDID PO SCH ×2 (10:07→21:40)
[2017-06-24] MEDS: NEURONTIN PO SCH ×3 (10:08→21:39)
[2017-06-24] MEDS: PEPCID PO SCH ×2 (10:08→21:40)
[2017-06-24] MEDS: LEVAQUIN 750MG/150ML 750 MG/150 ML BAG IV SCH (10:09)
--- NOTE | 2017-06-24 10:19 | Progress Note ---
Assessment and Plan MRSA Lower extremity Cellulitis Acute renal failure Mitral valve replacement, mechanical on warfarin for oral anticoagulation. Pharmacy following. well functioning mechanical mitral valve on echo, EF 45-50% on echo this admission. Cardiac cath 2013 prior to her valve surgery revealed no significant coronary disease, and she did not require bypass surgery. Tricuspid valve repair 2013 Trans-aortic septal myectomy 2013 Paroxysmal Afib Resolving Nonischemic cardiomyopathy Presence of subcutaneous AICD Obesity Hypokalemia Subjective Date of service: 06/24/17 Principal diagnosis: CHF Interval history: INR of 5.1 today. PAOLO on hold. NSVT on telemetry overnight. Patient remained asymptomatic. Objective Vital Signs Temp Pulse Resp BP BP Pulse Ox 06/24/17 10:07 18 06/24/17 08:27 18 06/24/17 08:17 97.9 F 71 108/64 06/24/17 07:14 70 18 89/57 100 06/24/17 07:12 71 100 06/24/17 07:11 70 18 98/55 100 06/24/17 03:42 98.9 F 95 H 18 126/63 92 06/23/17 23:59 100.9 F H 94 H 18 123/84 97 06/23/17 22:28 98.6 F 101 H 18 106/66 96 06/23/17 16:11 97.7 F 77 18 104/63 98 06/23/17 11:58 102/56 06/23/17 10:40 98.6 F 72 18 102/56 91 06/23/17 10:35 96 - Physical Examination General: No Apparent Distress HEENT: Positive: PERRL Neck: Positive: trachea midline Cardiac: Positive: Reg Rate and Rhythm Neuro: Positive: Grossly Intact - Labs and Meds Coagulation 06/24/17 Range/Units 03:00 PT 49.9 H (12.2-14.9) Sec. INR 5.16 H* (0.87-1.13) Comprehensive Metabolic Panel 06/24/17 Range/Units 08:12 Sodium 136 L (137-145) mmol/L Potassium 3.6 (3.6-5.0) mmol/L Chloride 98.4 (98-107) mmol/L Carbon Dioxide 24 (22-30) mmol/L BUN 35 H (7-17) mg/dL Creatinine 2.1 H (0.7-1.2) mg/dL Glucose 109 H (65-100) mg/dL Calcium 8.9 (8.4-10.2) mg/dL - Imaging and Cardiology EKG: report reviewed (LVH with IVCD)
--- NOTE | 2017-06-24 10:41 | Progress Note ---
Assessment and Plan Impression: * ALBERTA * CAD * Cardiomyopathy * COPD * HTN * pyuria Plan: * cr is worse today * hold diuretics * gentle ivfs * follow up vanco levels, high risk atn from [facility] toxicity * strict i/os * diuresis per cards * avoid nephrotoxins * abx per primary team * continue supportive care Subjective Date of service: 06/24/17 Principal diagnosis: CHF Interval history: resting well in bed Objective - Exam Narrative Exam: General appearance: Present: mild distress, well-nourished - EENT Eyes: Present: PERRL ENT: hearing intact, clear oral mucosa - Neck Neck: Present: supple, normal ROM - Respiratory Respiratory effort: normal Respiratory: bilateral: CTA - Cardiovascular Heart rate: 90 Rhythm: regular Heart Sounds: Present: S1 & S2. Absent: rub, click - Extremities Extremities: pulses symmetrical, No edema Extremity abnormal: edema Peripheral Pulses: within normal limits - Abdominal General gastrointestinal: Present: soft, non-tender, non-distended, normal bowel sounds Female genitourinary: Present: normal - Rectal Rectal Exam: deferred - Integumentary Integumentary: Present: clear, warm, dry - Musculoskeletal Musculoskeletal: gait normal, strength equal bilaterally - Psychiatric Psychiatric: appropriate mood/affect, intact judgment & insight - Neurologic Neurologic: CNII-XII intact, moves all extremities - Vital Signs Vital signs: Vital Signs - 12hr 06/23/17 06/24/17 06/24/17 23:59 03:42 07:11 Temperature 100.9 F H 98.9 F Pulse Rate 94 H 95 H 70 Respiratory 18 18 18 Rate Blood Pressure 123/84 126/63 98/55 Blood Pressure [Left] O2 Sat by Pulse 97 92 100 Oximetry 06/24/17 06/24/17 06/24/17 07:12 07:14 08:17 Temperature 97.9 F Pulse Rate 71 70 71 Respiratory 18 Rate Blood Pressure 89/57 Blood Pressure 108/64 [Left] O2 Sat by Pulse 100 100 Oximetry 06/24/17 06/24/17 08:27 10:07 Temperature Pulse Rate Respiratory 18 18 Rate Blood Pressure Blood Pressure [Left] O2 Sat by Pulse Oximetry - Lab 06/22/17 08:44 06/24/17 08:12 Most recent lab results Calcium 8.9 mg/dL (8.4-10.2) 06/24/17 08:12
--- NOTE | 2017-06-24 11:25 | Progress Note ---
Assessment and Plan Assessment: 1) Sepsis: still fever. Etiology - from MRSA seppticemia +/- left leg cellulitis+/- presumed pneumonia. CRP=23-->15/Procal=2.4 2) Left leg cellulitis - better. S/p recent venogram negative for DVT. CT leg showed mild subcutaneous edema left calf and foot. 3) Presumed pneumonia versus COPD exacerbation: Increased yellow sputum production -CXR +pulmonary edema 4) Complicated MRSA septicemia: Patient has a mechanical MV and AICD. Should r/ o prosthetic valve endocarditis -TTE showed no vegetation and functional MV -CT lumbar + DJD no abscess/osteomyelitis 5) COPD 6) History of coronary artery disease with previous ME and CABG 7) Hypertension 8) Crohn's disease 9)History of MSSA septicemia and endocarditis in the past seen at [facility], proctitis and NSTEMI admitted from 04/22-05/15/14. Failed ancef, cefazolin, responded to dapto/zosyn/flagyl for 6 weeks. then underwent AVR/TV repair in 07/2014. MRI lumbar neg 10) ALBERTA - worsening 12) History of MRSA skin boils Plan: -PAOLO - pending on hold due to anticoagulation -stop levaquin -stop vancomycin -start daptomycin -add gentamicin renally dosed until MRSA prothestic valve endocarditis is ruled out. Triple therapy for prosthetic valve endocarditis should be vanco+genta+ rifampin. -cannot do rifampin in view of coumadin interactions and lack of MRSA MICs report -close kidney monitoring. Discussed with pharmacy Thank you Dr Starks for your consultation, will follow up with you. Roberta Morales MD Infectious Diseases Specialist [facility] ([facility] M [phone] O [phone] Subjective Date of service: 06/24/17 Principal diagnosis: CHF Interval history: Feels better still lower back pain but left leg pain is better. Still low grade fever 100.9 Current Antimicrobials: Vancomycin 06/20 Levaquin 06/19 Previous Antimicrobials: Microbiology: Blood cultures: 06/19 MRSA 06/22 ngtd Urine culture: 06/20 10-100K mixed Influenza negative Objective - Exam Narrative Exam: General appearance: Alert in NAD, conversant Eyes: anicteric sclerae, moist conjunctivae; no lid-lag; PERRLA HENT: Atraumatic; oropharynx clear Neck: Trachea midline; supple, no thyromegaly or lymphadenopathy Lungs: bibasilar crackles CV: RRR, no murmurs Abdomen: Soft, non-tender Extremities: +left leg discoloration, improved heat and TTP, +right chronic ankle discoloration. Skin: Normal temperature, turgor and texture; no rash, ulcers or subcutaneous nodules Psych: Appropriate affect, alert and oriented to person, place and time. Neuro: alert and oriented x 3. Moving all extermities Lines: No CVL / PICC - Constitutional Vitals: Vital Signs Temp Pulse Resp BP Pulse Ox 97.9 F 71 18 108/64 100 06/24/17 08:17 06/24/17 08:17 06/24/17 10:07 06/24/17 08:17 06/24/17 07:14 Temperature -Last 24 Hours Temperature 97.9 F Temperature 98.9 F Temperature 100.9 F Temperature 98.6 F Temperature 97.7 F - Labs CBC & Chem 7: 06/22/17 08:44 06/24/17 08:12 Labs: Abnormal lab results 06/20/17 06/24/17 06/24/17 Range/Units 14:00 03:00 08:12 PT 49.9 H (12.2-14.9) Sec. INR 5.16 H* (0.87-1.13) Sodium 136 L (137-145) mmol/L BUN 35 H (7-17) mg/dL Creatinine 2.1 H (0.7-1.2) mg/dL Glucose 109 H (65-100) mg/dL Miscellaneous Test Flexitest 1 H
--- NOTE | 2017-06-24 11:31 | Progress Note ---
Assessment and Plan Assessment and plan: Admitted June 19, 2017, my first day with patient 06/24/2017 Patient is a 52-year-old woman with history of hypertension, CABG, tobacco dependency, chronic pain syndrome, dlp, cardiomyopathy, permanent pacemaker/ defibrillator status post extraction due to MRSA infection, CHF, Crohn's disease , mechanical mitral valve replacement on warfarin anticoagulation and hypertension who presented with shortness of breath, left leg pain and swelling. 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 She was found to have MRSA bacteremia. pCXR probable early CHF. TTE 06/19/17 read as mildly decreased EF, estimated 45-50%, moderate to severe concentric LVH, mechanical mitral valve well seated with normal function , mild MR and left atrium is moderated to severely dilated. -Acute on chronic combined heart failure: medical management, treated with iv diuretics, Cardiology is following -Sepsis due to left leg cellulitis: Treated with IV vancomycin and on renal dose of levaquin, ID is following -Suspected MRSA bacteremia from pneumonia: No IV vancomycin, followed by infectious disease physician -Acute renal failure, vasomotor nephropathy present on admission: Lisinopril 40 mg twice a day, will hold due to worsening renal function and hypotension -Chronic pain syndrome on home 4 mg of Dilaudid twice a day [id number] and on prn IV Dilaudid by Dr. Cosme: Have narcan on standby, pt is a narcotic pain seeker and refuses to come off dilaudid even with hypotension, counselling done -DVT prophylaxis: INR is supratherapeutic 06/24/17: inr too high for PAOLO, restart diet. NSVT cardiology notified, transient Hypotensive History Interval history: Patient was seen and examined. Follow-up on current diagnosis/left leg cellulitis. Overnight nsvt and hypotensive. Patient denies any chest pain, shortness breath, nausea/vomiting or severe headaches. Imaging, nursing note, chart, labs and old chart reviewed. Discussed with patient. Hospitalist Physical - Physical exam Narrative exam: GEN: WDWN, NAD, AWAKE, ALERT, ORIENTATED 3 HEENT: NCAT, EOMI, PERRL, OP Clear NECK: supple, no adenopathy, no thyromegaly, no JVD CVS/HEART: RRR, NORMAL S1S2, NO JVD, pulses present bilaterally CHEST/LUNGS: CTA B, Symmetrical chest expansion, good air entry bilaterally GI/Abdomen: soft, NTND, good bowel sounds, no guarding or rebound /Bladder: no suprapubic tenderness, no CVA or paraspinal tenderness EXT/Skin: Left leg slightly larger than the right MSK: FROM x 4 Neuro: CN 2-12 grossly intact, no new focal deficits Psych: calm Bibasilar crackles, - Constitutional Vitals: Temp Pulse Resp BP Pulse Ox 97.9 F 71 18 108/64 100 06/24/17 08:17 06/24/17 08:17 06/24/17 10:07 06/24/17 08:17 06/24/17 07:14 General appearance: Present: no acute distress, obese Results - Labs CBC & Chem 7: 06/22/17 08:44 06/24/17 08:12 Labs: Laboratory Last Values WBC 10.4 K/mm3 (4.5-11.0) 06/22/17 08:44 RBC 4.89 M/mm3 (3.65-5.03) 06/22/17 08:44 Hgb 12.4 gm/dl (10.1-14.3) 06/22/17 08:44 Hct 38.0 % (30.3-42.9) 06/22/17 08:44 MCV 78 fl (79-97) L 06/22/17 08:44 MCH 25 pg (28-32) L 06/22/17 08:44 MCHC 33 % (30-34) 06/22/17 08:44 RDW 18.1 % (13.2-15.2) H 06/22/17 08:44 Plt Count 241 K/mm3 (140-440) 06/22/17 08:44 Lymph % (Auto) 10.5 % (13.4-35.0) L 06/22/17 08:44 Jay % (Auto) 9.7 % (0.0-7.3) H 06/22/17 08:44 Eos % (Auto) 0.9 % (0.0-4.3) 06/22/17 08:44 Baso % (Auto) 0.4 % (0.0-1.8) 06/22/17 08:44 Lymph # 1.1 K/mm3 (1.2-5.4) L 06/22/17 08:44 Jay # 1.0 K/mm3 (0.0-0.8) H 06/22/17 08:44 Eos # 0.1 K/mm3 (0.0-0.4) 06/22/17 08:44 Baso # 0.0 K/mm3 (0.0-0.1) 06/22/17 08:44 Add Manual Diff Complete 06/20/17 06:28 Total Counted 100 06/20/17 06:28 Seg Neutrophils % 78.5 % (40.0-70.0) H 06/22/17 08:44 Seg Neuts % (Manual) 60.0 % (40.0-70.0) 06/20/17 06:28 Band Neutrophils % 18.0 % 06/20/17 06:28 Lymphocytes % (Manual) 12.0 % (13.4-35.0) L 06/20/17 06:28 Reactive Lymphs % (Man) 0 % 06/20/17 06:28 Monocytes % (Manual) 10.0 % (0.0-7.3) H 06/20/17 06:28 Eosinophils % (Manual) 0 % (0.0-4.3) 06/20/17 06:28 Basophils % (Manual) 0 % (0.0-1.8) 06/20/17 06:28 Metamyelocytes % 0 % 06/20/17 06:28 Myelocytes % 0 % 06/20/17 06:28 Promyelocytes % 0 % 06/20/17 06:28 Blast Cells % 0 % 06/20/17 06:28 Nucleated RBC % Not Reportable 06/20/17 06:28 Seg Neutrophils # 8.2 K/mm3 (1.8-7.7) H 06/22/17 08:44 Seg Neutrophils # Man 9.5 K/mm3 (1.8-7.7) H 06/20/17 06:28 Band Neutrophils # 2.8 K/mm3 06/20/17 06:28 Lymphocytes # (Manual) 1.9 K/mm3 (1.2-5.4) 06/20/17 06:28 Abs React Lymphs (Man) 0.0 K/mm3 06/20/17 06:28 Monocytes # (Manual) 1.6 K/mm3 (0.0-0.8) H 06/20/17 06:28 Eosinophils # (Manual) 0.0 K/mm3 (0.0-0.4) 06/20/17 06:28 Basophils # (Manual) 0.0 K/mm3 (0.0-0.1) 06/20/17 06:28 Metamyelocytes # 0.0 K/mm3 06/20/17 06:28 Myelocytes # 0.0 K/mm3 06/20/17 06:28 Promyelocytes # 0.0 K/mm3 06/20/17 06:28 Blast Cells # 0.0 K/mm3 06/20/17 06:28 WBC Morphology Not Reportable 06/20/17 06:28 Hypersegmented Neuts Few 06/20/17 06:28 Hyposegmented Neuts Not Reportable 06/20/17 06:28 Hypogranular Neuts Not Reportable 06/20/17 06:28 Smudge Cells Not Reportable 06/20/17 06:28 Toxic Granulation Not Reportable 06/20/17 06:28 Toxic Vacuolation Not Reportable 06/20/17 06:28 Dohle Bodies Not Reportable 06/20/17 06:28 Pelger-Huet Anomaly Not Reportable 06/20/17 06:28 Zee Rods Not Reportable 06/20/17 06:28 Platelet Estimate Appears normal 06/20/17 06:28 Clumped Platelets Not Reportable 06/20/17 06:28 Plt Clumps, EDTA Not Reportable 06/20/17 06:28 Large Platelets Not Reportable 06/20/17 06:28 Giant Platelets Not Reportable 06/20/17 06:28 Platelet Satelliting Not Reportable 06/20/17 06:28 Plt Morphology Comment Not Reportable 06/20/17 06:28 RBC Morphology Not Reportable 06/20/17 06:28 Dimorphic RBCs Not Reportable 06/20/17 06:28 Polychromasia Not Reportable 06/20/17 06:28 Hypochromasia Few 06/20/17 06:28 Poikilocytosis Not Reportable 06/20/17 06:28 Anisocytosis 1+ 06/20/17 06:28 Microcytosis Not Reportable 06/20/17 06:28 Macrocytosis Not Reportable 06/20/17 06:28 Spherocytes Not Reportable 06/20/17 06:28 Pappenheimer Bodies Not Reportable 06/20/17 06:28 Sickle Cells Not Reportable 06/20/17 06:28 Target Cells Not Reportable 06/20/17 06:28 Tear Drop Cells Not Reportable 06/20/17 06:28 Ovalocytes Few 06/20/17 06:28 Helmet Cells Not Reportable 06/20/17 06:28 Mendez-Earle Bodies Not Reportable 06/20/17 06:28 Comstock Rings Not Reportable 06/20/17 06:28 Nilay Cells Not Reportable 06/20/17 06:28 Bite Cells Not Reportable 06/20/17 06:28 Crenated Cell Not Reportable 06/20/17 06:28 Elliptocytes Not Reportable 06/20/17 06:28 Acanthocytes (Spur) Not Reportable 06/20/17 06:28 Rouleaux Not Reportable 06/20/17 06:28 Hemoglobin C Crystals Not Reportable 06/20/17 06:28 Schistocytes Not Reportable 06/20/17 06:28 Malaria parasites Not Reportable 06/20/17 06:28 Garrett Bodies Not Reportable 06/20/17 06:28 Hem Pathologist Commnt No 06/20/17 06:28 PT 49.9 Sec. (12.2-14.9) H 06/24/17 03:00 INR 5.16 (0.87-1.13) H* 06/24/17 03:00 VBG pH 7.424 (7.320-7.420) H 06/19/17 Unknown Sodium 136 mmol/L (137-145) L 06/24/17 08:12 Potassium 3.6 mmol/L (3.6-5.0) 06/24/17 08:12 Chloride 98.4 mmol/L (98-107) 06/24/17 08:12 Carbon Dioxide 24 mmol/L (22-30) 06/24/17 08:12 Anion Gap 17 mmol/L 06/24/17 08:12 BUN 35 mg/dL (7-17) H 06/24/17 08:12 Creatinine 2.1 mg/dL (0.7-1.2) H 06/24/17 08:12 Estimated GFR 30 ml/min 06/24/17 08:12 BUN/Creatinine Ratio 17 % 06/24/17 08:12 Glucose 109 mg/dL (65-100) H 06/24/17 08:12 Lactic Acid 2.10 mmol/L (0.7-2.0) H* 06/19/17 16:52 Calcium 8.9 mg/dL (8.4-10.2) 06/24/17 08:12 Total Bilirubin 1.50 mg/dL (0.1-1.2) H 06/20/17 06:28 AST 13 units/L (5-40) 06/20/17 06:28 ALT 7 units/L (7-56) 06/20/17 06:28 Alkaline Phosphatase 98 units/L (35-129) 06/20/17 06:28 C-Reactive Protein 15.90 mg/dL (0.00-1.30) H 06/22/17 15:23 NT-Pro-B Natriuret Pep 1085 pg/mL (0-900) H 06/23/17 08:25 Total Protein 7.8 g/dL (6.3-8.2) 06/20/17 06:28 Albumin 3.3 g/dL (3.9-5) L 06/20/17 06:28 Albumin/Globulin Ratio 0.7 % 06/20/17 06:28 HCG, Qual Negative (Negative) 06/19/17 Unknown Urine Color Yellow (Yellow) 06/19/17 Unknown Urine Turbidity Clear (Clear) 06/19/17 Unknown Urine pH 8.0 (5.0-7.0) H 06/19/17 Unknown Ur Specific Timblin 1.011 (1.003-1.030) 06/19/17 Unknown Urine Protein <15 mg/dl mg/dL (Negative) 06/19/17 Unknown Urine Glucose (UA) Neg mg/dL (Negative) 06/19/17 Unknown Urine Ketones Neg mg/dL (Negative) 06/19/17 Unknown Urine Blood Mod (Negative) 06/19/17 Unknown Urine Nitrite Neg (Negative) 06/19/17 Unknown Urine Bilirubin Neg (Negative) 06/19/17 Unknown Urine Urobilinogen < 2.0 mg/dL (<2.0) 06/19/17 Unknown Ur Leukocyte Esterase Neg (Negative) 06/19/17 Unknown Urine WBC (Auto) < 1.0 /HPF (0.0-6.0) 06/19/17 Unknown Urine RBC (Auto) 10.0 /HPF (0.0-6.0) 06/19/17 Unknown U Epithel Cells (Auto) 2.0 /HPF (0-13.0) 06/19/17 Unknown Urine Bacteria (Auto) 1+ /HPF (Negative) 06/19/17 Unknown Urine Mucus Few /HPF 06/19/17 Unknown Vancomycin Trough 16.7 ug/mL (5.0-20.0) 06/22/17 15:23 Miscellaneous Test Flexitest 1 H 06/20/17 14:00
[2017-06-24] MEDS: NACL 0.9% 1000 ML 1,000 ML IV SCH (12:52)
[2017-06-24] MEDS ORDERED: GARAMYCIN/NS 100 MG/100 ML 100 MG/100 ML BAG IV ONE (14:00)
[2017-06-24] MEDS: HABITROL TD SCH ×2 (15:00→18:48)
[2017-06-24] MEDS: NACL 0.9% IV SCH (15:27)
[2017-06-24] MEDS: CUBICIN IV SCH (15:27)
[2017-06-24] MEDS ORDERED: COUMADIN NO DOSE TODAY PO ONE (17:00)
[2017-06-24] MEDS: VANCOMYCIN/NS 1 GM/250 ML 1 GM/250 ML BAG IV SCH (19:13)
[2017-06-25] MEDS: ROXICODONE PO SCH ×5 (00:12→18:51)
[2017-06-25] MEDS: DILAUDID IV PRN ×3 (06:36→19:01)
[2017-06-25 07:12] LABS: Calcium 8.8 mg/dL (8.4-10.2); Potassium 3.6 mmol/L (3.6-5.0)
[2017-06-25 07:36] LABS: INR 4.67 (0.87-1.13)
--- NOTE | 2017-06-25 08:18 | Progress Note ---
Assessment and Plan Impression: * ALBERTA * CAD * Cardiomyopathy * COPD * HTN * pyuria Plan: * cr is better today * hold diuretics * gentle ivfs * follow up vanco levels, high risk atn from vanco toxicity * please find another abx--recommend not giving gentamicin if other options available * strict i/os * diuresis per cards * avoid nephrotoxins * abx per primary team * continue supportive care Subjective Date of service: 06/25/17 Principal diagnosis: CHF Interval history: resting well in bed Objective - Exam Narrative Exam: General appearance: Present: mild distress, well-nourished - EENT Eyes: Present: PERRL ENT: hearing intact, clear oral mucosa - Neck Neck: Present: supple, normal ROM - Respiratory Respiratory effort: normal Respiratory: bilateral: CTA - Cardiovascular Heart rate: 90 Rhythm: regular Heart Sounds: Present: S1 & S2. Absent: rub, click - Extremities Extremities: pulses symmetrical, No edema Extremity abnormal: edema Peripheral Pulses: within normal limits - Abdominal General gastrointestinal: Present: soft, non-tender, non-distended, normal bowel sounds Female genitourinary: Present: normal - Rectal Rectal Exam: deferred - Integumentary Integumentary: Present: clear, warm, dry - Musculoskeletal Musculoskeletal: gait normal, strength equal bilaterally - Psychiatric Psychiatric: appropriate mood/affect, intact judgment & insight - Neurologic Neurologic: CNII-XII intact, moves all extremities - Vital Signs Vital signs: Vital Signs - 12hr 06/24/17 06/24/17 06/24/17 21:40 22:00 22:37 Temperature 99.8 F H Pulse Rate 54 L Pulse Rate [ 72 Left Radial] Respiratory 24 24 18 Rate Respiratory 24 Rate [Left Leg] Blood Pressure 117/51 O2 Sat by Pulse 95 Oximetry 06/24/17 06/25/17 06/25/17 22:38 01:01 03:20 Temperature 99.7 F H 98.4 F Pulse Rate 54 L 107 H Pulse Rate [ Left Radial] Respiratory 17 17 Rate Respiratory Rate [Left Leg] Blood Pressure 107/67 117/52 O2 Sat by Pulse 99 97 Oximetry 06/25/17 06/25/17 06/25/17 03:24 06:14 06:36 Temperature Pulse Rate 86 Pulse Rate [ Left Radial] Respiratory 20 24 Rate Respiratory Rate [Left Leg] Blood Pressure O2 Sat by Pulse Oximetry - Lab 06/22/17 08:44 06/25/17 06:38 Most recent lab results Calcium 8.8 mg/dL (8.4-10.2) 06/25/17 06:38
--- NOTE | 2017-06-25 08:55 | Progress Note ---
Assessment and Plan Assessment and Plan Assessment and plan: Admitted June 19, 2017, Patient is a 52-year-old woman with history of hypertension, CABG, tobacco dependency, chronic pain syndrome, dlp, cardiomyopathy, permanent pacemaker/ defibrillator status, MRSA infection, CHF, Crohn's disease, mechanical mitral valve replacement on warfarin anticoagulation and hypertension who presented with shortness of breath, left leg pain and swelling. 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 She was found to have MRSA bacteremia. pCXR probable early CHF. TTE 06/19/17 read as mildly decreased EF, estimated 45-50%, moderate to severe concentric LVH, mechanical mitral valve well seated with normal function, mild MR and left atrium is moderated to severely dilated. -Acute on chronic combined heart failure: medical management, treated with iv diuretics, Cardiology is following -Sepsis due to left leg cellulitis: Treated with IV vancomycin and on renal dose of levaquin, ID is following -Suspected MRSA bacteremia from pneumonia: IV Levaquin and IV vancomycin, followed by infectious disease physician -Acute renal failure, vasomotor nephropathy present on admission: Lisinopril 40 mg twice a day, will hold due to worsening renal function and hypotension -Chronic pain syndrome on home 4 mg of Dilaudid twice a day [id number] and on prn IV Dilaudid by Dr. Cosme: Have narcan on standby, pt is a narcotic pain seeker and refuses to come off dilaudid even with hypotension, counselling done Supratherapeutic INR-INR around 4.5 -DVT prophylaxis: INR is supratherapeutic 06/25/17: inr too high for PAOLO, restart diet. NSVT cardiology notified, transient Hypotensive - Patient Problems (1) Acute exacerbation of CHF (congestive heart failure) Current Visit: Yes Status: Acute Qualifiers: Congestive heart failure type: combined Qualified Code(s): I50.43 - Acute on chronic combined systolic (congestive) and diastolic (congestive) heart failure Plan to address problem: IV Lasix Echo EF 45 to 50 percent (2) Systemic inflammatory response syndrome (SIRS) Current Visit: Yes Status: Acute Plan to address problem: Patient with temp of 102.3.And Lactic acid of 2.1 c/w SIS Initiated on Levaquin and Vancomycin ID following (3) HTN (hypertension) Current Visit: Yes Status: Chronic Qualifiers: Hypertension type: essential hypertension Qualified Code(s): I10 - Essential (primary) hypertension Plan to address problem: Cont antihypertensives (4) Anticoagulation monitoring, INR range 2.5-3.5 Current Visit: Yes Status: Acute Plan to address problem: Patient has MVR.Pharmacy to maintain INR in 2.5 to 3.5 Coumadin on hold INR around 4.6 PAOLO postponed (5) Hypokalemia Current Visit: Yes Status: Acute Plan to address problem: Supplemented (6) DVT prophylaxis Current Visit: Yes Status: Acute Plan to address problem: INR supratherapeutic. Subjective Date of service: 06/25/17 Principal diagnosis: CHF and Sepsis Interval history: Doing well clinically Objective - Constitutional Vitals: Vital Signs - 12hr 06/24/17 06/24/17 06/24/17 21:40 22:00 22:37 Temperature 99.8 F H Pulse Rate 54 L Pulse Rate [ 72 Left Radial] Respiratory 24 24 18 Rate Respiratory 24 Rate [Left Leg] Blood Pressure 117/51 O2 Sat by Pulse 95 Oximetry 06/24/17 06/25/17 06/25/17 22:38 01:01 03:20 Temperature 99.7 F H 98.4 F Pulse Rate 54 L 107 H Pulse Rate [ Left Radial] Respiratory 17 17 Rate Respiratory Rate [Left Leg] Blood Pressure 107/67 117/52 O2 Sat by Pulse 99 97 Oximetry 06/25/17 06/25/17 06/25/17 03:24 06:14 06:36 Temperature Pulse Rate 86 Pulse Rate [ Left Radial] Respiratory 20 24 Rate Respiratory Rate [Left Leg] Blood Pressure O2 Sat by Pulse Oximetry 06/25/17 08:41 Temperature Pulse Rate Pulse Rate [ Left Radial] Respiratory 20 Rate Respiratory Rate [Left Leg] Blood Pressure O2 Sat by Pulse Oximetry - Labs CBC & Chem 7: 06/22/17 08:44 06/25/17 06:38 Labs: Abnormal lab results 06/24/17 06/25/17 06/25/17 Range/Units 08:12 06:38 06:38 PT 46.1 H (12.2-14.9) Sec. INR 4.67 H (0.87-1.13) Sodium 136 L (137-145) mmol/L BUN 35 H 30 H (7-17) mg/dL Creatinine 2.1 H 1.8 H (0.7-1.2) mg/dL Glucose 109 H (65-100) mg/dL
--- NOTE | 2017-06-25 09:42 | Progress Note ---
Assessment and Plan MRSA Fever Lower extremity Cellulitis Acute renal failure Mitral valve replacement, mechanical on warfarin as an outpatient. Pharmacy following. well functioning mechanical mitral valve on echo, EF 45-50% on echo this admission. Cardiac cath 2013 prior to her valve surgery revealed no significant coronary disease, and she did not require bypass surgery. Tricuspid valve repair 2013 Trans-aortic septal myectomy 2013 Paroxysmal Afib Resolving Nonischemic cardiomyopathy Presence of subcutaneous AICD Obesity Hypokalemia Plan: Continue medical therapy for nonischemic cardiomyopathy PAOLO for rule out endocarditis when INR < 4. Subjective Date of service: 06/25/17 Principal diagnosis: CHF and Sepsis Interval history: PAOLO postponed due to supra therapeutic INR of 4.6. Objective Vital Signs Temp Pulse Pulse Resp Resp BP Pulse Ox 06/25/17 08:41 20 06/25/17 08:25 98.5 F 88 20 120/67 100 06/25/17 06:36 24 06/25/17 06:14 20 06/25/17 03:24 86 06/25/17 03:20 98.4 F 17 117/52 06/25/17 01:01 99.7 F H 107 H 17 107/67 97 06/24/17 22:38 54 L 99 06/24/17 22:37 99.8 F H 54 L 18 117/51 95 06/24/17 22:00 72 24 24 06/24/17 21:40 24 06/24/17 19:13 24 06/24/17 18:43 18 06/24/17 18:01 18 06/24/17 17:01 18 06/24/17 16:51 98.2 F 51 L 20 124/84 85 06/24/17 15:31 18 06/24/17 12:18 18 06/24/17 11:07 18 06/24/17 10:07 18 - Physical Examination General: No Apparent Distress HEENT: Positive: PERRL Neck: Positive: trachea midline Cardiac: Positive: Reg Rate and Rhythm Neuro: Positive: Grossly Intact - Labs and Meds Coagulation 06/25/17 Range/Units 06:38 PT 46.1 H (12.2-14.9) Sec. INR 4.67 H (0.87-1.13) Comprehensive Metabolic Panel 06/25/17 Range/Units 06:38 Sodium 138 (137-145) mmol/L Potassium 3.6 (3.6-5.0) mmol/L Chloride 100.0 (98-107) mmol/L Carbon Dioxide 26 (22-30) mmol/L BUN 30 H (7-17) mg/dL Creatinine 1.8 H (0.7-1.2) mg/dL Glucose 98 (65-100) mg/dL Calcium 8.8 (8.4-10.2) mg/dL - Imaging and Cardiology EKG: report reviewed (LVH with IVCD)
[2017-06-25] MEDS: NEURONTIN PO SCH ×3 (10:03→21:42)
[2017-06-25] MEDS: DILAUDID PO SCH ×2 (10:03→21:41)
[2017-06-25] MEDS: PEPCID PO SCH ×2 (10:04→21:42)
[2017-06-25] MEDS: HABITROL TD SCH (10:05)
--- NOTE | 2017-06-25 11:30 | Progress Note ---
Assessment and Plan Assessment: 1) Sepsis: resolved. Etiology - from MRSA seppticemia +/- left leg cellulitis+/ - presumed pneumonia. CRP=23-->15/Procal=2.4 2) Left leg cellulitis - better. S/p recent venogram negative for DVT. CT leg showed mild subcutaneous edema left calf and foot. 3) Presumed pneumonia versus COPD exacerbation: Increased yellow sputum production -CXR +pulmonary edema 4) Complicated MRSA septicemia: Patient has a mechanical MV and AICD. Should r/ o prosthetic valve endocarditis -TTE showed no vegetation and functional MV -CT lumbar + DJD no abscess/osteomyelitis 5) COPD 6) History of coronary artery disease with previous VT and CABG 7) Hypertension 8) Crohn's disease 9)History of MSSA septicemia and endocarditis in the past seen at [facility], proctitis and NSTEMI admitted from 04/22-05/15/14. Failed ancef, cefazolin, responded to dapto/zosyn/flagyl for 6 weeks. then underwent AVR/TV repair in 07/2014. MRI lumbar neg 10) ALBERTA - worsening 12) History of MRSA skin boils Plan: -PAOLO - pending on hold due to anticoagulation -continue daptomycin -triple therapy for prosthetic valve endocarditis should be dapto+genta+rifampin -gentamicin stopped due to worsening creatinine -cannot do rifampin in view of coumadin interactions and lack of MRSA MICs report -close kidney monitoring. I will be off from June 26 until June 29, I will be back on June 30. I will be available over the phone. Thank you Dr Starks for your consultation, will follow up with you. Roberta Morales MD Infectious Diseases Specialist [facility] ([facility] M [phone] Subjective Date of service: 06/25/17 Principal diagnosis: CHF and Sepsis Interval history: Feels better. No fever. Current Antimicrobials: dapto 06/24 genta 06/24 Previous Antimicrobials: Vancomycin 06/20 Levaquin 06/19 Microbiology: Blood cultures: 06/19 MRSA 06/22 ngtd Urine culture: 06/20 10-100K mixed Influenza negative Objective - Exam Narrative Exam: General appearance: Alert in NAD, conversant Eyes: anicteric sclerae, moist conjunctivae; no lid-lag; PERRLA HENT: Atraumatic; oropharynx clear Neck: Trachea midline; supple, no thyromegaly or lymphadenopathy Lungs: bibasilar crackles CV: RRR, murmurs Abdomen: Soft, non-tender Extremities: +left leg discoloration, improved heat and TTP, +right chronic ankle discoloration. Skin: Normal temperature, turgor and texture; no rash, ulcers or subcutaneous nodules Psych: Appropriate affect, alert and oriented to person, place and time. Neuro: alert and oriented x 3. Moving all extermities Lines: No CVL / PICC - Constitutional Vitals: Vital Signs Temp Pulse Resp BP Pulse Ox 98.5 F 88 20 120/67 100 06/25/17 08:25 06/25/17 08:25 06/25/17 08:41 06/25/17 08:25 06/25/17 08:25 Temperature -Last 24 Hours Temperature 98.5 F Temperature 98.4 F Temperature 99.7 F Temperature 99.8 F Temperature 98.2 F - Labs CBC & Chem 7: 06/22/17 08:44 06/25/17 06:38 Labs: Abnormal lab results 06/25/17 06/25/17 Range/Units 06:38 06:38 PT 46.1 H (12.2-14.9) Sec. INR 4.67 H (0.87-1.13) BUN 30 H (7-17) mg/dL Creatinine 1.8 H (0.7-1.2) mg/dL
[2017-06-25] MEDS: NACL 0.9% IV SCH (15:05)
[2017-06-25] MEDS: CUBICIN IV SCH (15:05)
[2017-06-26] MEDS: ROXICODONE PO SCH ×4 (00:27→12:40)
[2017-06-26] MEDS: DILAUDID IV PRN ×3 (06:21→21:29)
--- NOTE | 2017-06-26 07:45 | Progress Note ---
Assessment and Plan Assessment and plan: Patient is a 52-year-old woman with history of hypertension, Crohns disease, CABG, tobacco dependency, chronic pain syndrome, dlp, cardiomyopathy, permanent pacemaker/defibrillator status, hx of MSSA septicemia and endocarditis in the past at [facility], MRSA infection, CHF, Crohn's disease, mechanical mitral valve replacement on warfarin anticoagulation and hypertension who presented with shortness of breath, left leg pain and swelling. machine technician had difficult time doing the venous leg Doppler because AMS and frequent movement, but reported no evidence of DVT/SVT in the vessels visualized. She was found to have MRSA bacteremia. pCXR probable early CHF. TTE 06/19/17 read as mildly decreased EF, estimated 45-50%, moderate to severe concentric LVH, mechanical mitral valve well seated with normal function, mild MR and left atrium is moderated to severely dilated. -Acute on chronic combined heart failure: S/P AICD medical management, treated with iv diuretics, Cardiology is following. ef 45-50% -Acute toxic encephaloapthy- Resolved. secondary to sepsis -Mechanical Mitral Valve replacement: Coumadin held, PAOLO planned with INR less than 4 to rule out Endocarditis. -Sepsis due to left leg cellulitis: Treated with IV vancomycin now on daptomycin , ID is following. Repeat cultures have remained negative. should be per ID on "triple therapy for prosthetic valve endocarditis should be dapto+genta+ rifampin. Gentamicin stopped due to worsening creatinine. cannot do rifampin in view of coumadin interactions and lack of MRSA MICs report " -Suspected MRSA bacteremia from pneumonia: On Daptomycin, followed by infectious disease physician. Patient has a hx of MSSA endocarditis in the past at the time she Failed ancef, cefazolin, responded to dapto/zosyn/flagyl for 6 weeks. then underwent AVR/TV repair in 07/2014. * IF PAOLO is negative can change to Vancomycin 1GM Q 12 With Dosing Adjustment. for total of 6 weeks as long as renal is improving. Will also need close renal function. * If Positive PAOLO will need [facility] -Noischemic Cardiomyopathy-cardiology input noted -Paroxysmal Afib- On coumadin -Trans-aortic septal Myectomy 2013 also Tricuspid valve repair 2013 -Acute renal failure, vasomotor nephropathy present on admission: Lisinopril Held, Nephrology following, Avoid nephrotoxic meds, gentle hydration ongoing. [employer] following. -Chronic pain syndrome on home 4 mg of Dilaudid twice a day [id number] and on prn IV Dilaudid by Dr. Cosme: Have narcan on standby, pt is a narcotic pain seeker and refuses to come off dilaudid even with hypotension, counselling done -Supratherapeutic INR-INR around 4.5 -DVT prophylaxis: INR is supratherapeutic -Plan of care DISCUSSED WITH PATIENT. -Place PICC line consult. History Interval history: Patient seen and examined, still with chronic pain at the back. Denies any shortness of breath. Per staff patient was ambulating around yesterday. Hospitalist Physical - Physical exam Narrative exam: GEN: WDWN, NAD, AWAKE, ALERT, ORIENTATED 3 HEENT: NCAT, EOMI, PERRL, OP Clear NECK: supple, no adenopathy, no thyromegaly, no JVD CVS/HEART: RRR, NORMAL S1S2, NO JVD, pulses present bilaterally CHEST/LUNGS: CTA B, Symmetrical chest expansion, good air entry bilaterally GI/Abdomen: soft, NTND, good bowel sounds, no guarding or rebound /Bladder: no suprapubic tenderness, no CVA or paraspinal tenderness EXT/Skin: no cyanosis, clubbing or edema MSK: FROM x 4 Neuro: CN 2-12 grossly intact, no new focal deficits Psych: calm - Constitutional Vitals: Temp Pulse Resp BP Pulse Ox 97.7 F 57 L 17 126/56 100 06/25/17 22:02 06/25/17 22:06 06/25/17 22:02 06/25/17 22:02 06/25/17 16:01 General appearance: Present: no acute distress, obese Results - Labs CBC & Chem 7: 06/26/17 04:00 06/26/17 07:51 Labs: Laboratory Last Values WBC 10.4 K/mm3 (4.5-11.0) 06/22/17 08:44 RBC 4.89 M/mm3 (3.65-5.03) 06/22/17 08:44 Hgb 12.4 gm/dl (10.1-14.3) 06/22/17 08:44 Hct 38.0 % (30.3-42.9) 06/22/17 08:44 MCV 78 fl (79-97) L 06/22/17 08:44 MCH 25 pg (28-32) L 06/22/17 08:44 MCHC 33 % (30-34) 06/22/17 08:44 RDW 18.1 % (13.2-15.2) H 06/22/17 08:44 Plt Count 241 K/mm3 (140-440) 06/22/17 08:44 Lymph % (Auto) 10.5 % (13.4-35.0) L 06/22/17 08:44 [place] % (Auto) 9.7 % (0.0-7.3) H 06/22/17 08:44 Eos % (Auto) 0.9 % (0.0-4.3) 06/22/17 08:44 Baso % (Auto) 0.4 % (0.0-1.8) 06/22/17 08:44 Lymph # 1.1 K/mm3 (1.2-5.4) L 06/22/17 08:44 [place] # 1.0 K/mm3 (0.0-0.8) H 06/22/17 08:44 Eos # 0.1 K/mm3 (0.0-0.4) 06/22/17 08:44 Baso # 0.0 K/mm3 (0.0-0.1) 06/22/17 08:44 Add Manual Diff Complete 06/20/17 06:28 Total Counted 100 06/20/17 06:28 Seg Neutrophils % 78.5 % (40.0-70.0) H 06/22/17 08:44 Seg Neuts % (Manual) 60.0 % (40.0-70.0) 06/20/17 06:28 Band Neutrophils % 18.0 % 06/20/17 06:28 Lymphocytes % (Manual) 12.0 % (13.4-35.0) L 06/20/17 06:28 Reactive Lymphs % (Man) 0 % 06/20/17 06:28 Monocytes % (Manual) 10.0 % (0.0-7.3) H 06/20/17 06:28 Eosinophils % (Manual) 0 % (0.0-4.3) 06/20/17 06:28 Basophils % (Manual) 0 % (0.0-1.8) 06/20/17 06:28 Metamyelocytes % 0 % 06/20/17 06:28 Myelocytes % 0 % 06/20/17 06:28 Promyelocytes % 0 % 06/20/17 06:28 Blast Cells % 0 % 06/20/17 06:28 Nucleated RBC % Not Reportable 06/20/17 06:28 Seg Neutrophils # 8.2 K/mm3 (1.8-7.7) H 06/22/17 08:44 Seg Neutrophils # Man 9.5 K/mm3 (1.8-7.7) H 06/20/17 06:28 Band Neutrophils # 2.8 K/mm3 06/20/17 06:28 Lymphocytes # (Manual) 1.9 K/mm3 (1.2-5.4) 06/20/17 06:28 Abs React Lymphs (Man) 0.0 K/mm3 06/20/17 06:28 Monocytes # (Manual) 1.6 K/mm3 (0.0-0.8) H 06/20/17 06:28 Eosinophils # (Manual) 0.0 K/mm3 (0.0-0.4) 06/20/17 06:28 Basophils # (Manual) 0.0 K/mm3 (0.0-0.1) 06/20/17 06:28 Metamyelocytes # 0.0 K/mm3 06/20/17 06:28 Myelocytes # 0.0 K/mm3 06/20/17 06:28 Promyelocytes # 0.0 K/mm3 06/20/17 06:28 Blast Cells # 0.0 K/mm3 06/20/17 06:28 WBC Morphology Not Reportable 06/20/17 06:28 Hypersegmented Neuts Few 06/20/17 06:28 Hyposegmented Neuts Not Reportable 06/20/17 06:28 Hypogranular Neuts Not Reportable 06/20/17 06:28 Smudge Cells Not Reportable 06/20/17 06:28 Toxic Granulation Not Reportable 06/20/17 06:28 Toxic Vacuolation Not Reportable 06/20/17 06:28 Dohle Bodies Not Reportable 06/20/17 06:28 Pelger-Huet Anomaly Not Reportable 06/20/17 06:28 Zee Rods Not Reportable 06/20/17 06:28 Platelet Estimate Appears normal 06/20/17 06:28 Clumped Platelets Not Reportable 06/20/17 06:28 Plt Clumps, EDTA Not Reportable 06/20/17 06:28 Large Platelets Not Reportable 06/20/17 06:28 Giant Platelets Not Reportable 06/20/17 06:28 Platelet Satelliting Not Reportable 06/20/17 06:28 Plt Morphology Comment Not Reportable 06/20/17 06:28 RBC Morphology Not Reportable 06/20/17 06:28 Dimorphic RBCs Not Reportable 06/20/17 06:28 Polychromasia Not Reportable 06/20/17 06:28 Hypochromasia Few 06/20/17 06:28 Poikilocytosis Not Reportable 06/20/17 06:28 Anisocytosis 1+ 06/20/17 06:28 Microcytosis Not Reportable 06/20/17 06:28 Macrocytosis Not Reportable 06/20/17 06:28 Spherocytes Not Reportable 06/20/17 06:28 Pappenheimer Bodies Not Reportable 06/20/17 06:28 Sickle Cells Not Reportable 06/20/17 06:28 Target Cells Not Reportable 06/20/17 06:28 Tear Drop Cells Not Reportable 06/20/17 06:28 Ovalocytes Few 06/20/17 06:28 Helmet Cells Not Reportable 06/20/17 06:28 Mendez-Poquott Bodies Not Reportable 06/20/17 06:28 [place] Rings Not Reportable 06/20/17 06:28 [place] Cells Not Reportable 06/20/17 06:28 Bite Cells Not Reportable 06/20/17 06:28 Crenated Cell Not Reportable 06/20/17 06:28 Elliptocytes Not Reportable 06/20/17 06:28 Acanthocytes (Spur) Not Reportable 06/20/17 06:28 Rouleaux Not Reportable 06/20/17 06:28 Hemoglobin C Crystals Not Reportable 06/20/17 06:28 Schistocytes Not Reportable 06/20/17 06:28 Malaria parasites Not Reportable 06/20/17 06:28 Garrett Bodies Not Reportable 06/20/17 06:28 Hem Pathologist Commnt No 06/20/17 06:28 PT 46.1 Sec. (12.2-14.9) H 06/25/17 06:38 INR 4.67 (0.87-1.13) H 06/25/17 06:38 VBG pH 7.424 (7.320-7.420) H 06/19/17 Unknown Sodium 138 mmol/L (137-145) 06/25/17 06:38 Potassium 3.6 mmol/L (3.6-5.0) 06/25/17 06:38 Chloride 100.0 mmol/L (98-107) 06/25/17 06:38 Carbon Dioxide 26 mmol/L (22-30) 06/25/17 06:38 Anion Gap 16 mmol/L 06/25/17 06:38 BUN 30 mg/dL (7-17) H 06/25/17 06:38 Creatinine 1.8 mg/dL (0.7-1.2) H 06/25/17 06:38 Estimated GFR 36 ml/min 06/25/17 06:38 BUN/Creatinine Ratio 17 % 06/25/17 06:38 Glucose 98 mg/dL (65-100) 06/25/17 06:38 Lactic Acid 2.10 mmol/L (0.7-2.0) H* 06/19/17 16:52 Calcium 8.8 mg/dL (8.4-10.2) 06/25/17 06:38 Total Bilirubin 1.50 mg/dL (0.1-1.2) H 06/20/17 06:28 AST 13 units/L (5-40) 06/20/17 06:28 ALT 7 units/L (7-56) 06/20/17 06:28 Alkaline Phosphatase 98 units/L (35-129) 06/20/17 06:28 Total Creatine Kinase 64 units/L (30-135) 06/25/17 06:38 C-Reactive Protein 15.90 mg/dL (0.00-1.30) H 06/22/17 15:23 NT-Pro-B Natriuret Pep 1085 pg/mL (0-900) H 06/23/17 08:25 Total Protein 7.8 g/dL (6.3-8.2) 06/20/17 06:28 Albumin 3.3 g/dL (3.9-5) L 06/20/17 06:28 Albumin/Globulin Ratio 0.7 % 06/20/17 06:28 HCG, Qual Negative (Negative) 06/19/17 Unknown Urine Color Yellow (Yellow) 06/19/17 Unknown Urine Turbidity Clear (Clear) 06/19/17 Unknown Urine pH 8.0 (5.0-7.0) H 06/19/17 Unknown Ur Specific [place] 1.011 (1.003-1.030) 06/19/17 Unknown Urine Protein <15 mg/dl mg/dL (Negative) 06/19/17 Unknown Urine Glucose (UA) Neg mg/dL (Negative) 06/19/17 Unknown Urine Ketones Neg mg/dL (Negative) 06/19/17 Unknown Urine Blood Mod (Negative) 06/19/17 Unknown Urine Nitrite Neg (Negative) 06/19/17 Unknown Urine Bilirubin Neg (Negative) 06/19/17 Unknown Urine Urobilinogen < 2.0 mg/dL (<2.0) 06/19/17 Unknown Ur Leukocyte Esterase Neg (Negative) 06/19/17 Unknown Urine WBC (Auto) < 1.0 /HPF (0.0-6.0) 06/19/17 Unknown Urine RBC (Auto) 10.0 /HPF (0.0-6.0) 06/19/17 Unknown U Epithel Cells (Auto) 2.0 /HPF (0-13.0) 06/19/17 Unknown Urine Bacteria (Auto) 1+ /HPF (Negative) 06/19/17 Unknown Urine Mucus Few /HPF 06/19/17 Unknown Random Gentamicin 1.8 ug/mL (0.0-10.0) 06/25/17 06:38 Vancomycin Trough 19.3 ug/mL (5.0-20.0) 06/24/17 08:12 Random Vancomycin 19.3 ug/mL (0-40.0) 06/24/17 13:20 Miscellaneous Test Flexitest 1 H 06/20/17 14:00
[2017-06-26 08:21] LABS: Basophils % (Auto) 0.4 % (0.0-1.8); Eosinophils % (Auto) 1.9 % (0.0-4.3); Hematocrit 34.1 % (30.3-42.9); Hemoglobin 10.6 gm/dl (10.1-14.3); Mean Corpuscular HGB Conc 31 % (30-34); Mean Corpuscular Volume 79 fl (79-97); Platelet Count 301 K/mm3 (140-440); Red Blood Count 4.31 M/mm3 (3.65-5.03); Red Cell Distribution Width 18.1 % (13.2-15.2); White Blood Count 11.7 K/mm3 (4.5-11.0)
[2017-06-26] MEDS ORDERED: HURRICAINE ONE 20% TOPICAL SPRAY MM (08:23)
[2017-06-26] MEDS: NEURONTIN PO SCH ×3 (08:28→21:28)
[2017-06-26 08:30] LABS: Mean Corpuscular Hemoglobin 25 pg (28-32)
[2017-06-26 08:31] LABS: INR 3.08 (0.87-1.13)
[2017-06-26 08:44] LABS: Calcium 8.6 mg/dL (8.4-10.2); Chloride 102.1 mmol/L (98-107); Potassium 3.7 mmol/L (3.6-5.0)
[2017-06-26] MEDS ORDERED: HURRICAINE ONE 20% TOPICAL SPRAY MM NR (09:00)
[2017-06-26] MEDS ORDERED: SUBLIMAZE IV NR (09:00)
[2017-06-26] MEDS ORDERED: VERSED IV NR (09:00)
--- NOTE | 2017-06-26 11:29 | Progress Note ---
Assessment and Plan MRSA No PAOLO evidence of mitral valve endocarditis The aortic valve is not well visualized due to comet artifact Fever Lower extremity Cellulitis Acute renal failure Mitral valve replacement, mechanical on warfarin as an outpatient. Pharmacy following. well functioning mechanical mitral valve on echo, EF 45-50% on echo this admission. Cardiac cath 2013 prior to her valve surgery revealed no significant coronary disease, and she did not require bypass surgery. Tricuspid valve repair 2013 Trans-aortic septal myectomy 2013 Paroxysmal Afib Resolving Nonischemic cardiomyopathy Presence of subcutaneous AICD Obesity Hypokalemia Plan: Continue medical therapy for nonischemic cardiomyopathy Continue antibiotic therapy Recommend repeat PAOLO in 2 weeks Resume coumadin therapy at 3 mg po daily Subjective Date of service: 06/26/17 Principal diagnosis: CHF and Sepsis Interval history: PAOLO performed - no complications Objective Vital Signs Temp Pulse Pulse Pulse Pulse Resp Resp 06/26/17 10:00 06/26/17 09:43 54 L 06/26/17 09:29 71 33 H 06/26/17 09:26 115 H 39 H 06/26/17 09:22 64 28 H 06/26/17 09:19 90 26 H 06/26/17 09:17 62 27 H 06/26/17 09:13 49 L 23 06/26/17 08:56 55 L 06/26/17 08:39 20 06/26/17 07:48 98.5 F 51 L 18 06/25/17 22:06 57 L 06/25/17 22:02 97.7 F 17 06/25/17 19:01 20 06/25/17 18:51 18 06/25/17 16:01 97.6 F 54 L 20 06/25/17 15:37 18 06/25/17 14:11 18 06/25/17 12:35 97.9 F 48 L 20 Resp Resp BP BP BP BP Pulse Ox 06/26/17 10:00 98 06/26/17 09:43 16 150/69 06/26/17 09:29 203/95 06/26/17 09:26 221/107 06/26/17 09:22 217/113 06/26/17 09:19 187/103 06/26/17 09:17 150/65 06/26/17 09:13 161/67 06/26/17 08:56 20 133/74 06/26/17 08:39 06/26/17 07:48 149/89 100 06/25/17 22:06 06/25/17 22:02 126/56 06/25/17 19:01 06/25/17 18:51 06/25/17 16:01 117/60 100 06/25/17 15:37 06/25/17 14:11 06/25/17 12:35 116/56 96 Pulse Ox Pulse Ox Pulse Ox 06/26/17 10:00 06/26/17 09:43 100 06/26/17 09:29 100 06/26/17 09:26 100 06/26/17 09:22 99 06/26/17 09:19 100 06/26/17 09:17 100 06/26/17 09:13 100 06/26/17 08:56 94 06/26/17 08:39 06/26/17 07:48 06/25/17 22:06 06/25/17 22:02 06/25/17 19:01 06/25/17 18:51 06/25/17 16:01 06/25/17 15:37 06/25/17 14:11 06/25/17 12:35 - Physical Examination General: No Apparent Distress HEENT: Positive: PERRL Neck: Positive: trachea midline Cardiac: Positive: Reg Rate and Rhythm Lungs: Positive: Normal Exam Neuro: Positive: Grossly Intact Abdomen: Positive: Unremarkable, Active Bowel Sounds Extremities: Present: normal. Absent: edema - Labs and Meds Coagulation 06/26/17 Range/Units 07:51 PT 33.2 H (12.2-14.9) Sec. INR 3.08 H (0.87-1.13) CBC 06/26/17 Range/Units 04:00 WBC 11.7 H (4.5-11.0) K/mm3 RBC 4.31 (3.65-5.03) M/mm3 Hgb 10.6 (10.1-14.3) gm/dl Hct 34.1 (30.3-42.9) % Plt Count 301 (140-440) K/mm3 Lymph # 1.3 (1.2-5.4) K/mm3 Harris # 0.8 (0.0-0.8) K/mm3 Eos # 0.2 (0.0-0.4) K/mm3 Baso # 0.0 (0.0-0.1) K/mm3 Comprehensive Metabolic Panel 06/26/17 Range/Units 07:51 Sodium 139 (137-145) mmol/L Potassium 3.7 (3.6-5.0) mmol/L Chloride 102.1 (98-107) mmol/L Carbon Dioxide 22 (22-30) mmol/L BUN 25 H (7-17) mg/dL Creatinine 1.5 H (0.7-1.2) mg/dL Glucose 116 H (65-100) mg/dL Calcium 8.6 (8.4-10.2) mg/dL - Imaging and Cardiology EKG: report reviewed ([facility] with IVCD)
--- NOTE | 2017-06-26 12:32 | Progress Note ---
Assessment and Plan Impression: * ALBERTA * CAD * Cardiomyopathy * COPD * HTN * pyuria Plan: * cr is better today * Continue to hold diuretics * Gentle IV hydration * follow up vanco levels, high risk atn from vanco toxicity * Agree with stopping gentamicin * strict i/os * avoid nephrotoxins * abx per primary team * continue supportive care Subjective Date of service: 06/26/17 Principal diagnosis: CHF and Sepsis Interval history: Patient is comfortable this morning. She denies any shortness of breath. Leg swelling is better. Objective - Vital Signs Vital signs: Vital Signs - 12hr 06/26/17 06/26/17 06/26/17 07:48 08:39 08:56 Temperature 98.5 F Pulse Rate 51 L Pulse Rate [ Intra-Procedure ] Pulse Rate [ Post-Procedure] Pulse Rate [Pre 55 L -Procedure] Respiratory 18 20 Rate Respiratory Rate [Intra- Procedure] Respiratory Rate [Post- Procedure] Respiratory 20 Rate [Pre- Procedure] Blood Pressure 149/89 Blood Pressure [Intra- Procedure] Blood Pressure [Post-Procedure ] Blood Pressure 133/74 [Pre-Procedure] O2 Sat by Pulse 100 Oximetry O2 Sat by Pulse Oximetry [ Intra-Procedure ] O2 Sat by Pulse Oximetry [Post -Procedure] O2 Sat by Pulse 94 Oximetry [Pre- Procedure] 06/26/17 06/26/17 06/26/17 09:13 09:17 09:19 Temperature Pulse Rate Pulse Rate [ 49 L 62 90 Intra-Procedure ] Pulse Rate [ Post-Procedure] Pulse Rate [Pre -Procedure] Respiratory Rate Respiratory 23 27 H 26 H Rate [Intra- Procedure] Respiratory Rate [Post- Procedure] Respiratory Rate [Pre- Procedure] Blood Pressure Blood Pressure 161/67 150/65 187/103 [Intra- Procedure] Blood Pressure [Post-Procedure ] Blood Pressure [Pre-Procedure] O2 Sat by Pulse Oximetry O2 Sat by Pulse 100 100 100 Oximetry [ Intra-Procedure ] O2 Sat by Pulse Oximetry [Post -Procedure] O2 Sat by Pulse Oximetry [Pre- Procedure] 06/26/17 06/26/17 06/26/17 09:22 09:26 09:29 Temperature Pulse Rate Pulse Rate [ 64 115 H 71 Intra-Procedure ] Pulse Rate [ Post-Procedure] Pulse Rate [Pre -Procedure] Respiratory Rate Respiratory 28 H 39 H 33 H Rate [Intra- Procedure] Respiratory Rate [Post- Procedure] Respiratory Rate [Pre- Procedure] Blood Pressure Blood Pressure 217/113 221/107 203/95 [Intra- Procedure] Blood Pressure [Post-Procedure ] Blood Pressure [Pre-Procedure] O2 Sat by Pulse Oximetry O2 Sat by Pulse 99 100 100 Oximetry [ Intra-Procedure ] O2 Sat by Pulse Oximetry [Post -Procedure] O2 Sat by Pulse Oximetry [Pre- Procedure] 06/26/17 06/26/17 09:43 10:00 Temperature Pulse Rate Pulse Rate [ Intra-Procedure ] Pulse Rate [ 54 L Post-Procedure] Pulse Rate [Pre -Procedure] Respiratory Rate Respiratory Rate [Intra- Procedure] Respiratory 16 Rate [Post- Procedure] Respiratory Rate [Pre- Procedure] Blood Pressure Blood Pressure [Intra- Procedure] Blood Pressure 150/69 [Post-Procedure ] Blood Pressure [Pre-Procedure] O2 Sat by Pulse 98 Oximetry O2 Sat by Pulse Oximetry [ Intra-Procedure ] O2 Sat by Pulse 100 Oximetry [Post -Procedure] O2 Sat by Pulse Oximetry [Pre- Procedure] - General Appearance General appearance: well-developed, well-nourished, appears stated age EENT: PERRL, mucous membranes moist Neck: no JVD, no thyromegaly, no carotid bruit, supple Respiratory: Present: Clear to Ascultation Cardiology: regular, normal heart rate, S1S2, no murmurs Gastrointestinal: normal, normoactive bowel sounds Integumentary: other (erythema noted in both her lower extremities) - Lab 06/26/17 04:00 06/26/17 07:51 Most recent lab results Calcium 8.6 mg/dL (8.4-10.2) 06/26/17 07:51
[2017-06-26] MEDS: DILAUDID PO SCH ×2 (13:41→22:41)
[2017-06-26] MEDS: PEPCID PO SCH ×2 (13:41→21:28)
[2017-06-26] MEDS ORDERED: COUMADIN PO SCH (17:00)
[2017-06-26] MEDS: NACL 0.9% IV SCH (17:08)
[2017-06-26] MEDS: CUBICIN IV SCH (17:08)
[2017-06-26] MEDS: NACL 0.9% 1000 ML 1,000 ML IV SCH (21:27)
[2017-06-27] MEDS: DILAUDID IV PRN ×3 (03:21→12:40)
[2017-06-27] MEDS: ROXICODONE PO SCH ×3 (06:35→16:10)
[2017-06-27 06:36] LABS: INR 2.36 (0.87-1.13)
[2017-06-27 06:40] LABS: Calcium 8.4 mg/dL (8.4-10.2); Chloride 100.9 mmol/L (98-107); Potassium 3.5 mmol/L (3.6-5.0)
[2017-06-27] MEDS ORDERED: HEPARIN/ 0.45% NACL-25,000 UNIT/500 ML 25,000 UNIT/500 ML BAG IV SCH (09:00)
[2017-06-27] MEDS: HABITROL TD SCH ×2 (10:23→10:35)
[2017-06-27] MEDS: NEURONTIN PO SCH ×2 (10:23→15:13)
[2017-06-27] MEDS: PEPCID PO SCH (10:23)
--- NOTE | 2017-06-27 10:36 | Progress Note ---
Assessment and Plan Persistent MRSA bacteremia Very difficult PAOLO due to valve artifacts Persistent fever Lower extremity Cellulitis Acute renal failure Mitral valve replacement, mechanical (2013) on warfarin as an outpatient. well functioning mechanical mitral valve on echo, EF 45-50% on echo this admission. Cardiac cath 2013 prior to her valve surgery revealed no significant coronary disease, and she did not require bypass surgery. Aortic valve replacement (2014) Tricuspid valve repair 2013 Trans-aortic septal myectomy 2013 Paroxysmal Afib Resolving Nonischemic cardiomyopathy Presence of subcutaneous AICD Complete AV dissociation Obesity Plan: Continue antibiotic therapy. Given persistent bacteremia, fever and new onset complete AV dissociation, cannot exclude a potential root abscess. PAOLO was very difficult and the aortic root was not visualized Discussed with Dr Carl Shelley ([facility] at [place]) - patient will be transferred for surgical and EP evaluation Subjective Date of service: 06/27/17 Principal diagnosis: CHF and Sepsis Interval history: Patient is doing well. She denies chest pain or shortness of breath this morning Tele is showing complete AV dissociation with NSVT Objective Vital Signs Temp Pulse Resp BP Pulse Ox 06/27/17 08:20 97.5 F L 45 L 18 123/52 93 06/27/17 04:32 98.4 F 38 L 18 117/43 93 06/26/17 23:42 57 L 100 06/26/17 19:53 98 06/26/17 19:51 100.0 F H 54 L 18 114/51 98 06/26/17 18:37 99.7 F H 40 L 24 124/61 81 L 06/26/17 13:41 18 06/26/17 12:40 20 - Physical Examination General: No Apparent Distress HEENT: Positive: PERRL Neck: Positive: trachea midline Cardiac: Positive: Reg Rate and Rhythm Lungs: Positive: Normal Exam Neuro: Positive: Grossly Intact Abdomen: Positive: Unremarkable, Active Bowel Sounds Extremities: Present: normal. Absent: edema - Labs and Meds Coagulation 06/26/17 06/27/17 Range/Units 16:28 05:37 PT 26.9 H (12.2-14.9) Sec. INR 2.36 H (0.87-1.13) APTT 80.6 H* (24.2-36.6) Sec. Comprehensive Metabolic Panel 06/27/17 Range/Units 05:37 Sodium 138 (137-145) mmol/L Potassium 3.5 L (3.6-5.0) mmol/L Chloride 100.9 (98-107) mmol/L Carbon Dioxide 22 (22-30) mmol/L BUN 23 H (7-17) mg/dL Creatinine 1.5 H (0.7-1.2) mg/dL Glucose 116 H (65-100) mg/dL Calcium 8.4 (8.4-10.2) mg/dL - Imaging and Cardiology EKG: report reviewed ([facility] with IVCD)
[2017-06-27] MEDS: DILAUDID PO SCH (11:45)
--- NOTE | 2017-06-27 11:51 | Progress Note ---
Assessment and Plan Impression: * ALBERTA * CAD * Cardiomyopathy * COPD * HTN * pyuria Plan: * cr is stable * Continue to hold diuretics * Currently off IV fluids * follow up vanco levels, high risk atn from vanco toxicity * Agree with stopping gentamicin * strict i/os * avoid nephrotoxins * abx per primary team * continue supportive care Subjective Date of service: 06/27/17 Principal diagnosis: CHF and Sepsis Interval history: Patient is comfortable today. Denies any shortness of breath. No nausea or vomiting. Currently on a heparin drip Objective - Vital Signs Vital signs: Vital Signs - 12hr 06/27/17 06/27/17 04:32 08:20 Temperature 98.4 F 97.5 F L Pulse Rate 38 L 45 L Respiratory 18 18 Rate Blood Pressure 117/43 123/52 O2 Sat by Pulse 93 93 Oximetry - General Appearance General appearance: well-developed, well-nourished, appears stated age EENT: PERRL, mucous membranes moist Neck: no JVD, no thyromegaly, no carotid bruit, supple Respiratory: Present: Clear to Ascultation Cardiology: regular, normal heart rate Gastrointestinal: normal, normoactive bowel sounds Integumentary: other (erythema noted in both lower extremities. Trace to 1+ edema) - Lab 06/26/17 04:00 06/27/17 05:37 Most recent lab results Calcium 8.4 mg/dL (8.4-10.2) 06/27/17 05:37
[2017-06-27] MEDS ORDERED: K-DUR PO ONE (12:14)
[2017-06-27 13:36] VITALS: BP 122/78
--- NOTE | 2017-06-27 14:40 | Discharge Summary ---
Providers - Providers Date of Admission: 06/19/17 14:31 Date of discharge: 06/27/17 Attending physician: ESTELA JOHN 06/19/17 18:25 Consult to Physician [CONS] Routine Consulting Provider: ASHTYN TONY Reason For Exam: SIRS Place consult to:: Randy Notified:: yes Phone number called:: [phone] If yes, spoke with:: Rio Time called:: 09:30 06/20/17 08:39 Consult to Physician [CONS] Routine Consulting Provider: LALA WATSON Reason For Exam: chf Place consult to:: Keerthi Notified:: yes Phone number called:: [phone] If yes, spoke with:: jessica Time called:: 09:15 06/22/17 09:11 Consult to Physician [CONS] Routine Consulting Provider: CHIDI GONZALEZ Reason For Exam: arf Place consult to:: dr. gonzalez Notified:: office Phone number called:: Was contact made?: Yes If yes, spoke with:: maria a Time called:: 10:35 Primary care physician: EMPLOYEE RELATIONS DIRECTOR Hospitalization Condition: Stable Hospital course: Patient is a 52-year-old woman with history of hypertension, CABG, tobacco dependency, chronic pain syndrome, dlp, cardiomyopathy, permanent pacemaker/ defibrillator status post extraction due to MRSA infection, endocarditis in the past at [facility], CHF, Crohn's disease, mechanical mitral valve replacement on warfarin anticoagulation and hypertension who presented with shortness of breath, left leg pain and swelling. air quality technician had difficult time doing the venous leg Doppler because AMS and frequent movement, but reported no evidence of DVT/SVT in the vessels visualized. She was found to have MRSA bacteremia. pCXR read as probable early CHF. TTE 06/19/17 read as mildly decreased EF, estimated 45-50%, moderate to severe concentric LVH, mechanical mitral valve well seated with normal function, mild MR and left atrium is moderated to severely dilated. -Acute on chronic combined heart failure -Sepsis due to left leg cellulitis -Suspected MRSA bacteremia from pneumonia -Acute renal failure, vasomotor nephropathy present on admission: Lisinopril 40 mg twice a day, will hold due to worsening renal function and hypotension -Chronic pain syndrome on home 4 mg of Dilaudid twice a day [id number] and on prn IV Dilaudid by Dr. Cosme: Have narcan on standby, pt is a narcotic pain seeker and refuses to come off dilaudid even with hypotension, counselling done -DVT prophylaxis: INR is supratherapeutic -AMS due to acute metabolic encephalopathy, poa, resolved "06/27/17, per Dr. Carson, Cardiology Persistent MRSA bacteremia, Very difficult PAOLO due to valve artifacts Persistent fever Lower extremity Cellulitis Acute renal failure Mitral valve replacement, mechanical (2013) on warfarin as an outpatient. well functioning mechanical mitral valve on echo, EF 45-50% on echo this admission. Cardiac cath 2013 prior to her valve surgery revealed no significant coronary disease, and she did not require bypass surgery. Aortic valve replacement (2014) Tricuspid valve repair 2013 Trans-aortic septal myectomy 2013 Paroxysmal Afib Resolving Nonischemic cardiomyopathy Presence of subcutaneous AICD Complete AV dissociation Obesity Plan: Continue antibiotic therapy. Given persistent bacteremia, fever and new onset complete AV dissociation, cannot exclude a potential root abscess. PAOLO was very difficult and the aortic root was not visualized Discussed with Dr Carl Shelley (CTS at [facility]) - patient will be transferred for surgical and EP evaluation" Disposition: transfer to [facility] Disposition: DC/TX-70 ANOTHER TYPE HLTHCARE Time spent for discharge: 35 minutes Core Measure Documentation - Palliative Care Palliative Care/ Comfort Measures: Not Applicable - Core Measures Any of the following diagnoses?: none - VTE Discharge Requirements Deep Vein Thrombosis/Pulmonary Embolism Present on Admission: No Has pt received <5 days of overlap therapy or INR<2.0: No Anticoagulant overlap therapy prescribed at discharge: No Contraindication No Overlap Therapy order at DC: Not Indicated Exam - Physical Exam Narrative exam: GEN: WDWN, NAD, AWAKE, ALERT, ORIENTATED 3 HEENT: NCAT, EOMI, PERRL, OP Clear NECK: supple, no adenopathy, no thyromegaly, no JVD CVS/HEART: RRR, NORMAL S1S2, NO JVD, pulses present bilaterally CHEST/LUNGS: CTA B, Symmetrical chest expansion, good air entry bilaterally GI/Abdomen: soft, NTND, good bowel sounds, no guarding or rebound /Bladder: no suprapubic tenderness, no CVA or paraspinal tenderness EXT/Skin: Left leg slightly larger than the right MSK: FROM x 4 Neuro: CN 2-12 grossly intact, no new focal deficits Psych: calm Bibasilar crackles, - Constitutional Vitals: Temp Pulse Resp BP Pulse Ox 98.2 F 49 L 18 122/78 96 06/27/17 13:32 06/27/17 13:32 06/27/17 13:32 06/27/17 13:32 06/27/17 13:32 Plan Activity: other (no strenous activity until cleared by cardiology) Diet: low salt Follow up with: PRIMARY CAREMD [Primary Care Provider] - 3-5 Days Forms: Warfarin Discharge Instruction
--- NOTE | 2017-06-27 14:58 | Progress Note ---
Assessment and Plan Assessment and plan: Admitted June 19, 2017, my first day with patient was 06/24/2017 Patient is a 52-year-old woman with history of hypertension, CABG, tobacco dependency, chronic pain syndrome, dlp, cardiomyopathy, permanent pacemaker/ defibrillator status post extraction due to MRSA infection, CHF, Crohn's disease , mechanical mitral valve replacement on warfarin anticoagulation and hypertension who presented with shortness of breath, left leg pain and swelling. pump house technician had difficult time doing the venous leg Doppler because AMS and frequent movement, but reported no evidence of DVT/SVT in the vessels visualized. She was found to have MRSA bacteremia. pCXR probable early CHF. TTE 06/19/17 read as mildly decreased EF, estimated 45-50%, moderate to severe concentric LVH, mechanical mitral valve well seated with normal function , mild MR and left atrium is moderated to severely dilated. -Acute on chronic combined heart failure: medical management, treated with iv diuretics, Cardiology is following -Sepsis due to left leg cellulitis: Treated with IV vancomycin and on renal dose of levaquin, ID is following -Suspected MRSA bacteremia from pneumonia: No IV vancomycin, followed by infectious disease physician -Acute renal failure, vasomotor nephropathy present on admission: Lisinopril 40 mg twice a day, will hold due to worsening renal function and hypotension -Chronic pain syndrome on home 4 mg of Dilaudid twice a day [id number] and on prn IV Dilaudid by Dr. Cosme: Have narcan on standby, pt is a narcotic pain seeker and refuses to come off dilaudid even with hypotension, counselling done -DVT prophylaxis: INR is 2.36 06/24/17: inr too high for PAOLO, restart diet. NSVT cardiology notified, transient Hypotensive 06/27/17: d/w Manager Outpatient, Dr. Carson, complete av dissociation and concerned about aortic root abscess; he has arranged for transfer to [place], under Dr. Shelley History Interval history: Patient was seen and examined. Follow-up on current diagnosis/left leg cellulitis. Overnight nsvt and hypotensive. Patient denies any chest pain, shortness breath, nausea/vomiting or severe headaches. Imaging, nursing note, chart, labs and old chart reviewed. Discussed with patient. Hospitalist Physical - Physical exam Narrative exam: GEN: WDWN, NAD, AWAKE, ALERT, ORIENTATED 3 HEENT: NCAT, EOMI, PERRL, OP Clear NECK: supple, no adenopathy, no thyromegaly, no JVD CVS/HEART: RRR, NORMAL S1S2, NO JVD, pulses present bilaterally CHEST/LUNGS: CTA B, Symmetrical chest expansion, good air entry bilaterally GI/Abdomen: soft, NTND, good bowel sounds, no guarding or rebound /Bladder: no suprapubic tenderness, no CVA or paraspinal tenderness EXT/Skin: Left leg slightly larger than the right MSK: FROM x 4 Neuro: CN 2-12 grossly intact, no new focal deficits Psych: calm Bibasilar crackles, - Constitutional Vitals: Temp Pulse Resp BP Pulse Ox 98.2 F 49 L 18 122/78 96 06/27/17 13:32 06/27/17 13:32 06/27/17 13:32 06/27/17 13:32 06/27/17 13:32 General appearance: Present: no acute distress, obese Results - Labs CBC & Chem 7: 06/26/17 04:00 06/27/17 05:37 Labs: Laboratory Last Values WBC 11.7 K/mm3 (4.5-11.0) H 06/26/17 04:00 RBC 4.31 M/mm3 (3.65-5.03) 06/26/17 04:00 Hgb 10.6 gm/dl (10.1-14.3) 06/26/17 04:00 Hct 34.1 % (30.3-42.9) 06/26/17 04:00 MCV 79 fl (79-97) 06/26/17 04:00 MCH 25 pg (28-32) L 06/26/17 04:00 MCHC 31 % (30-34) 06/26/17 04:00 RDW 18.1 % (13.2-15.2) H 06/26/17 04:00 Plt Count 301 K/mm3 (140-440) 06/26/17 04:00 Lymph % (Auto) 11.1 % (13.4-35.0) L 06/26/17 04:00 Nash % (Auto) 7.1 % (0.0-7.3) 06/26/17 04:00 Eos % (Auto) 1.9 % (0.0-4.3) 06/26/17 04:00 Baso % (Auto) 0.4 % (0.0-1.8) 06/26/17 04:00 Lymph # 1.3 K/mm3 (1.2-5.4) 06/26/17 04:00 Nash # 0.8 K/mm3 (0.0-0.8) 06/26/17 04:00 Eos # 0.2 K/mm3 (0.0-0.4) 06/26/17 04:00 Baso # 0.0 K/mm3 (0.0-0.1) 06/26/17 04:00 Add Manual Diff Complete 06/20/17 06:28 Total Counted 100 06/20/17 06:28 Seg Neutrophils % 79.5 % (40.0-70.0) H 06/26/17 04:00 Seg Neuts % (Manual) 60.0 % (40.0-70.0) 06/20/17 06:28 Band Neutrophils % 18.0 % 06/20/17 06:28 Lymphocytes % (Manual) 12.0 % (13.4-35.0) L 06/20/17 06:28 Reactive Lymphs % (Man) 0 % 06/20/17 06:28 Monocytes % (Manual) 10.0 % (0.0-7.3) H 06/20/17 06:28 Eosinophils % (Manual) 0 % (0.0-4.3) 06/20/17 06:28 Basophils % (Manual) 0 % (0.0-1.8) 06/20/17 06:28 Metamyelocytes % 0 % 06/20/17 06:28 Myelocytes % 0 % 06/20/17 06:28 Promyelocytes % 0 % 06/20/17 06:28 Blast Cells % 0 % 06/20/17 06:28 Nucleated RBC % Not Reportable 06/20/17 06:28 Seg Neutrophils # 9.3 K/mm3 (1.8-7.7) H 06/26/17 04:00 Seg Neutrophils # Man 9.5 K/mm3 (1.8-7.7) H 06/20/17 06:28 Band Neutrophils # 2.8 K/mm3 06/20/17 06:28 Lymphocytes # (Manual) 1.9 K/mm3 (1.2-5.4) 06/20/17 06:28 Abs React Lymphs (Man) 0.0 K/mm3 06/20/17 06:28 Monocytes # (Manual) 1.6 K/mm3 (0.0-0.8) H 06/20/17 06:28 Eosinophils # (Manual) 0.0 K/mm3 (0.0-0.4) 06/20/17 06:28 Basophils # (Manual) 0.0 K/mm3 (0.0-0.1) 06/20/17 06:28 Metamyelocytes # 0.0 K/mm3 06/20/17 06:28 Myelocytes # 0.0 K/mm3 06/20/17 06:28 Promyelocytes # 0.0 K/mm3 06/20/17 06:28 Blast Cells # 0.0 K/mm3 06/20/17 06:28 WBC Morphology Not Reportable 06/20/17 06:28 Hypersegmented Neuts Few 06/20/17 06:28 Hyposegmented Neuts Not Reportable 06/20/17 06:28 Hypogranular Neuts Not Reportable 06/20/17 06:28 Smudge Cells Not Reportable 06/20/17 06:28 Toxic Granulation Not Reportable 06/20/17 06:28 Toxic Vacuolation Not Reportable 06/20/17 06:28 Dohle Bodies Not Reportable 06/20/17 06:28 Pelger-Huet Anomaly Not Reportable 06/20/17 06:28 Zee Rods Not Reportable 06/20/17 06:28 Platelet Estimate Appears normal 06/20/17 06:28 Clumped Platelets Not Reportable 06/20/17 06:28 Plt Clumps, EDTA Not Reportable 06/20/17 06:28 Large Platelets Not Reportable 06/20/17 06:28 Giant Platelets Not Reportable 06/20/17 06:28 Platelet Satelliting Not Reportable 06/20/17 06:28 Plt Morphology Comment Not Reportable 06/20/17 06:28 RBC Morphology Not Reportable 06/20/17 06:28 Dimorphic RBCs Not Reportable 06/20/17 06:28 Polychromasia Not Reportable 06/20/17 06:28 Hypochromasia Few 06/20/17 06:28 Poikilocytosis Not Reportable 06/20/17 06:28 Anisocytosis 1+ 06/20/17 06:28 Microcytosis Not Reportable 06/20/17 06:28 Macrocytosis Not Reportable 06/20/17 06:28 Spherocytes Not Reportable 06/20/17 06:28 Pappenheimer Bodies Not Reportable 06/20/17 06:28 Sickle Cells Not Reportable 06/20/17 06:28 Target Cells Not Reportable 06/20/17 06:28 Tear Drop Cells Not Reportable 06/20/17 06:28 Ovalocytes Few 06/20/17 06:28 Helmet Cells Not Reportable 06/20/17 06:28 Mendez-Levelock Bodies Not Reportable 06/20/17 06:28 [place] Rings Not Reportable 06/20/17 06:28 [place] Cells Not Reportable 06/20/17 06:28 Bite Cells Not Reportable 06/20/17 06:28 Crenated Cell Not Reportable 06/20/17 06:28 Elliptocytes Not Reportable 06/20/17 06:28 Acanthocytes (Spur) Not Reportable 06/20/17 06:28 Rouleaux Not Reportable 06/20/17 06:28 Hemoglobin C Crystals Not Reportable 06/20/17 06:28 Schistocytes Not Reportable 06/20/17 06:28 Malaria parasites Not Reportable 06/20/17 06:28 Garrett Bodies Not Reportable 06/20/17 06:28 Hem Pathologist Commnt No 06/20/17 06:28 PT 26.9 Sec. (12.2-14.9) H 06/27/17 05:37 INR 2.36 (0.87-1.13) H 06/27/17 05:37 APTT 80.6 Sec. (24.2-36.6) H* 06/26/17 16:28 Heparin Anti-Xa Level < 0.10 U.I./ml (0.3-0.7) L 06/27/17 14:05 VBG pH 7.424 (7.320-7.420) H 06/19/17 Unknown Sodium 138 mmol/L (137-145) 06/27/17 05:37 Potassium 3.5 mmol/L (3.6-5.0) L 06/27/17 05:37 Chloride 100.9 mmol/L (98-107) 06/27/17 05:37 Carbon Dioxide 22 mmol/L (22-30) 06/27/17 05:37 Anion Gap 19 mmol/L 06/27/17 05:37 BUN 23 mg/dL (7-17) H 06/27/17 05:37 Creatinine 1.5 mg/dL (0.7-1.2) H 06/27/17 05:37 Estimated GFR 44 ml/min 06/27/17 05:37 BUN/Creatinine Ratio 15 % 06/27/17 05:37 Glucose 116 mg/dL (65-100) H 06/27/17 05:37 Lactic Acid 2.10 mmol/L (0.7-2.0) H* 06/19/17 16:52 Calcium 8.4 mg/dL (8.4-10.2) 06/27/17 05:37 Total Bilirubin 1.50 mg/dL (0.1-1.2) H 06/20/17 06:28 AST 13 units/L (5-40) 06/20/17 06:28 ALT 7 units/L (7-56) 06/20/17 06:28 Alkaline Phosphatase 98 units/L (35-129) 06/20/17 06:28 Total Creatine Kinase 64 units/L (30-135) 06/25/17 06:38 C-Reactive Protein 15.90 mg/dL (0.00-1.30) H 06/22/17 15:23 NT-Pro-B Natriuret Pep 1085 pg/mL (0-900) H 06/23/17 08:25 Total Protein 7.8 g/dL (6.3-8.2) 06/20/17 06:28 Albumin 3.3 g/dL (3.9-5) L 06/20/17 06:28 Albumin/Globulin Ratio 0.7 % 06/20/17 06:28 HCG, Qual Negative (Negative) 06/19/17 Unknown Urine Color Yellow (Yellow) 06/19/17 Unknown Urine Turbidity Clear (Clear) 06/19/17 Unknown Urine pH 8.0 (5.0-7.0) H 06/19/17 Unknown Ur Specific [place] 1.011 (1.003-1.030) 06/19/17 Unknown Urine Protein <15 mg/dl mg/dL (Negative) 06/19/17 Unknown Urine Glucose (UA) Neg mg/dL (Negative) 06/19/17 Unknown Urine Ketones Neg mg/dL (Negative) 06/19/17 Unknown Urine Blood Mod (Negative) 06/19/17 Unknown Urine Nitrite Neg (Negative) 06/19/17 Unknown Urine Bilirubin Neg (Negative) 06/19/17 Unknown Urine Urobilinogen < 2.0 mg/dL (<2.0) 06/19/17 Unknown Ur Leukocyte Esterase Neg (Negative) 06/19/17 Unknown Urine WBC (Auto) < 1.0 /HPF (0.0-6.0) 06/19/17 Unknown Urine RBC (Auto) 10.0 /HPF (0.0-6.0) 06/19/17 Unknown U Epithel Cells (Auto) 2.0 /HPF (0-13.0) 06/19/17 Unknown Urine Bacteria (Auto) 1+ /HPF (Negative) 06/19/17 Unknown Urine Mucus Few /HPF 06/19/17 Unknown Random Gentamicin 1.8 ug/mL (0.0-10.0) 06/25/17 06:38 Vancomycin Trough 19.3 ug/mL (5.0-20.0) 06/24/17 08:12 Random Vancomycin 19.3 ug/mL (0-40.0) 06/24/17 13:20 Miscellaneous Test Flexitest 1 H 06/20/17 14:00
[2017-06-27] MEDS ORDERED: COUMADIN PO SCH (17:00)
== END 2017-06-27 15:20 | disposition short-term general hospital (02) | DRG 871 ==
LOC: ED 11:25 → 3A 14:31
PROVIDERS: ADMIT Internal Medicine; ATTEND Internal Medicine
DX: A41.9 Sepsis, unspecified organism (principal); N17.0 Acute kidney failure with tubular necrosis; I50.43 Acute on chronic combined systolic (congestive) and diastolic (congestive) heart failure; J18.9 Pneumonia, unspecified organism; G93.41 Metabolic encephalopathy; N39.0 Urinary tract infection, site not specified; L03.116 Cellulitis of left lower limb; I42.0 Dilated cardiomyopathy; K50.90 Crohn's disease, unspecified, without complications; Z68.41 Body mass index [BMI] 40.0-44.9, adult; J44.0 Chronic obstructive pulmonary disease with (acute) lower respiratory infection; E87.6 Hypokalemia; I25.10 Atherosclerotic heart disease of native coronary artery without angina pectoris; Z88.5 Allergy status to narcotic agent; Z88.8 Allergy status to other drugs, medicaments and biological substances; I11.0 Hypertensive heart disease with heart failure; I25.2 Old myocardial infarction; Z95.1 Presence of aortocoronary bypass graft; K21.9 Gastro-esophageal reflux disease without esophagitis; F17.200 Nicotine dependence, unspecified, uncomplicated; Z90.710 Acquired absence of both cervix and uterus; Z95.810 Presence of automatic (implantable) cardiac defibrillator; E66.9 Obesity, unspecified; E78.5 Hyperlipidemia, unspecified; T45.515A Adverse effect of anticoagulants, initial encounter; Y92.89 Other specified places as the place of occurrence of the external cause; I48.0 Paroxysmal atrial fibrillation
CPT/HCPCS: 36415; 71010; 71020; 72131; 80048; 80053; 80170; 80202; 81001; 82140; 82550; 82805; 83880; 84703; 85007; 85025; 85520; 85610; 85730; 86140; 86403; 87040; 87076; 87086; 87186; 87400; 90732; 93005; 93010; 93306; 93312; 93320; 93325; 94640; 94760; 96365; 96375; 96376; A9270-GY; J0878; J1170; J1200; J1580; J1644; J1650; J1940; J1956; J2250; J2270; J3010; J3370; J7030; J7040

== ENCOUNTER 2017-11-10 17:39 | Emergency (ER) | payer MEDICAID ==
[2017-11-10 17:55] VITALS: BP 179/85
--- NOTE | 2017-11-10 21:10 | Emergency Department Report ---
ED Back Pain/Injury HPI - General Chief Complaint: Back Pain/Injury Stated Complaint: BACK PAIN Time Seen by Provider: 11/10/17 20:43 Source: patient Limitations: No Limitations - History of Present Illness Initial Comments: This is a 52 y.o. female that presents with chronic low back pain with radiation to LLE. Patient reports being followed by Dr. Klein at [facility]. Reports having a history of herniated disc and recent MRI last week here last week. States she is going to Orthopedic appointment next Thursday but can't bear the pain until next week. Reports pain is 10/10 on pain scale and radiating down her left lower extremity. She is unable to bend and it is worse with movement or walking. She was brought here today by brother because she could not sit straight up. Pain increased yesterday and is unbearable today. She was seeing pain management last year but the medication was not controlling pain. Denies numbness, tingling, swelling, redness, nausea, vomiting , voiding changes, or deformity. MD Complaint: back pain -: year(s) Similar Symptoms Previously: Yes Place: home Radiation: left leg Severity: severe Severity scale (0 -10): 10 Quality: sharp, aching Consistency: intermittent Improves With: immobilization Worsens With: movement, sitting upright, walking Context: bending Associated Symptoms: difficulty walking. denies: confusion, weakness, chest pain, numbness, cough, difficulty urinating, diaphoresis, incontinence, fever/ chills, constipation, headaches, abdominal pain, loss of appetite, malaise, nausea/vomiting, rash, seizure, shortness of breath, syncope Treatments Prior to Arrival: heat therapy - Related Data Previous Rx's Medication Instructions Recorded Last Taken Type Acetaminophen [Acetaminophen TAB] 650 mg PO Q4H PRN #30 tablet 06/27/17 Unknown Rx Atorvastatin [Lipitor] 40 mg PO QHS #30 06/27/17 06/14/15 Rx Bisacodyl [Dulcolax suppos] 10 mg CA QDAY PRN #30 supp.rect 06/27/17 Unknown Rx Cyclobenzaprine [Flexeril 10 MG 5 mg PO Q8H PRN #30 tablet 06/27/17 Unknown Rx TAB] DAPTOmycin [Cubicin] 420 mg IV Q24H #1 vial 06/27/17 Unknown Rx Famotidine [Pepcid] 20 mg PO BID #30 tablet 06/27/17 Unknown Rx Gabapentin [Neurontin] 300 mg PO TID #90 06/27/17 Unknown Rx Nicotine [Habitrol] 21 mg TD QDAY #30 patch 06/27/17 Unknown Rx Warfarin [Coumadin] 3 mg PO DAILY@1700 #30 tablet 06/27/17 Unknown Rx oxyCODONE [Roxicodone TAB] 15 mg PO Q6HR #30 tablet 06/27/17 Unknown Rx Cyclobenzaprine HCl [Flexeril 5 MG 5 mg PO TID PRN #20 tab 11/10/17 Unknown Rx TAB] Prednisone [predniSONE 10 mg 10 mg PO .TAPER #1 tab.ds.pk 11/10/17 Unknown Rx (6-Day Pack, 21 Tabs)] traMADol [Ultram 50 MG tab] 50 mg PO Q6HR PRN #20 tablet 11/10/17 Unknown Rx Allergies Allergy/AdvReac Type Severity Reaction Status Date / Time morphine Allergy Swelling Verified 06/10/15 08:19 nitroglycerin Allergy Angioedema Verified 06/10/15 08:19 NSAIDS (Non-Steroidal Allergy Swelling Verified 06/10/15 08:19 Anti-Inflamma ED Review of Systems ROS: Stated complaint: BACK PAIN Other details as noted in HPI Constitutional: denies: chills, fever Respiratory: denies: cough, orthopnea, shortness of breath, wheezing Cardiovascular: denies: chest pain, palpitations, syncope Gastrointestinal: denies: abdominal pain, nausea, vomiting, diarrhea Musculoskeletal: back pain (low back pain radiating to LLE). denies: joint swelling, arthralgia Skin: denies: rash, lesions Neurological: denies: headache, weakness, numbness, paresthesias Psychiatric: denies: anxiety, depression, auditory hallucinations, visual hallucinations ED Past Medical Hx - Past Medical History Crohn's disease. Cardiomyopathy- left ventricle. Life vest in place. Family history: no significant family history ED Back Pain Physical Exam - Exam General: Vital signs noted. No distress. Alert and acting appropriately. Back/Abdomen: Yes Perilumbar Tenderness (bilateral deep palpation, worse on right), Yes Straight Leg Raise Pain (positive on Left), No Abdominal Tenderness , No Perithoracic Tenderness, No Flank Tenderness Neuro: Yes Normal Sensation, Yes Normal DTR's, No Motor Weakness, No Normal Gait ED Course Vital Signs 11/10/17 17:52 Temperature 98.6 F Pulse Rate 89 Respiratory 20 Rate Blood Pressure 179/85 O2 Sat by Pulse 100 Oximetry ED Medical Decision Making - Medical Decision Making This is a 52 y.o. female that presents with chronic low back pain that is worse today and radiating to LLE. Patient is stable and examined by me. No radiograph obtained. Received norco 10/325 mg po and decadron 10 mg IM once in ER. No acute signs of distress noted. Discussed importance of f/u with Orthopedic or pain management. Will start flexeril 5 mg po tid, prednisone taper, and tramadol 50 mg po q6h PRN. Patient agrees to ED plan of care. Discharged home stable. Follow up with Orthopedic next week. Critical care attestation.: If time is entered above; I have spent that time in minutes in the direct care of this critically ill patient, excluding procedure time. ED Disposition Clinical Impression: Low back pain Qualifiers: Chronicity: chronic Back pain laterality: bilateral Sciatica presence: with sciatica Sciatica laterality: sciatica of left side Qualified Code(s): M54.42 - Lumbago with sciatica, left side Disposition: - TO HOME OR SELFCARE Is pt being admited?: No Does the pt Need Aspirin: No Condition: Stable Instructions: Sciatica (ED), Chronic Back Pain (ED) Additional Instructions: Rest Use ice or heat on affected area for 20 minutes and off for 2 hours. Take pain medication as needed for pain. Don't drive or operate heavy machinery while taking muscle relaxers because they may cause drowsiness. Follow up with orthopedic surgery or pain management in 2-3 days. Prescriptions: Cyclobenzaprine HCl [Flexeril 5 MG TAB] 5 mg PO TID PRN #20 tab PRN Reason: Muscle Spasm Prednisone [predniSONE 10 mg (6-Day Pack, 21 Tabs)] 10 mg PO .TAPER #1 tab.ds.pk traMADol [Ultram 50 MG tab] 50 mg PO Q6HR PRN #20 tablet PRN Reason: Pain Referrals: MAXX DOMINGUEZ MD [Staff Physician] - 3-5 Days [facility] [Outside] - 3-5 Days [facility] [Outside] - 3-5 Days [facility] [Outside] - 3-5 Days Time of Disposition: 22:00 Print Language: TURKMEN
[2017-11-10] MEDS ORDERED: DECADRON IM ONE (21:15)
[2017-11-10] MEDS ORDERED: NORCO 10/325 PO ONE (21:15)
== END 2017-11-10 22:32 | disposition home or self-care (01) ==
LOC: ED 17:39
DX: M54.5 Low back pain (principal); G89.29 Other chronic pain; Z88.6 Allergy status to analgesic agent; Z88.8 Allergy status to other drugs, medicaments and biological substances
CPT/HCPCS: 96372; 99282; J1100

== ENCOUNTER 2019-01-20 21:24 | Emergency (ER) | payer MEDICAID ==
[2019-01-20 21:39] VITALS: BP 156/80
--- NOTE | 2019-01-20 21:44 | Emergency Department Report ---
Blank Doc - Documentation Documentation: 53 y old female presents to Ed cc of lower back pain x 2 weeks, no trauma, no injuries, no dysuria ua ordered States PCP refered her to surgery for her disc compression
[2019-01-20 22:23] LABS: Bilirubin,Urine NEG (Negative); Blood,Urine NEG (Negative); Color,Urine Yellow (Yellow); Mucus,Urine FEW /HPF; Protein,Urine <15 mg/dL mg/dL (Negative); Urobilinogen,Urine < 2.0 mg/dL (<2.0)
[2019-01-21] MEDS ORDERED: PERCOCET 5/325 PO STA (00:18)
--- NOTE | 2019-01-21 00:31 | Emergency Department Report ---
ED Back Pain/Injury HPI - General Chief Complaint: Back Pain/Injury Stated Complaint: LOWER BACK PAIN Time Seen by Provider: 01/20/19 21:34 Source: patient Limitations: No Limitations - History of Present Illness Initial Comments: 53-year-old -[place] female with a known history degenerative disc disease extremity department complaining of a flareup of back pain seeking analgesia medications as she has none at home. Cannot recall any aggravating injury to initiated pain. No fever, chills, sweats. No dysuria, no hematuria, no coryza. No chest pain or shortness of breath. MD Complaint: back pain Similar Symptoms Previously: No Place: home Radiation: none Quality: dull Consistency: constant Improves With: none Worsens With: none Associated Symptoms: denies: weakness, chest pain, numbness, difficulty walking, cough, incontinence, fever/chills, headaches, abdominal pain, seizure, shortness of breath, syncope - Related Data Previous Rx's Medication Instructions Recorded Last Taken Type Acetaminophen [Acetaminophen TAB] 650 mg PO Q4H PRN #30 tablet 06/27/17 Unknown Rx Atorvastatin [Lipitor] 40 mg PO QHS #30 06/27/17 06/14/15 Rx Bisacodyl [Dulcolax suppos] 10 mg NE QDAY PRN #30 supp.rect 06/27/17 Unknown Rx Cyclobenzaprine [Flexeril 10 MG 5 mg PO Q8H PRN #30 tablet 06/27/17 Unknown Rx TAB] DAPTOmycin 420 mg IV Q24H #1 vial 06/27/17 Unknown Rx Famotidine [Pepcid] 20 mg PO BID #30 tablet 06/27/17 Unknown Rx Gabapentin [Neurontin] 300 mg PO TID #90 06/27/17 Unknown Rx Nicotine [Habitrol] 21 mg TD QDAY #30 patch 06/27/17 Unknown Rx Warfarin [Coumadin] 3 mg PO DAILY@1700 #30 tablet 06/27/17 Unknown Rx oxyCODONE [roxiCODONE] 15 mg PO Q6HR #30 tablet 06/27/17 Unknown Rx Cyclobenzaprine HCl [Flexeril 5 MG 5 mg PO TID PRN #20 tab 11/10/17 Unknown Rx TAB] Prednisone [predniSONE 10 mg 10 mg PO .TAPER #1 tab.ds.pk 11/10/17 Unknown Rx (6-Day Pack, 21 Tabs)] traMADol [Ultram 50 MG tab] 50 mg PO Q6HR PRN #20 tablet 11/10/17 Unknown Rx methOCARBAMOL [Robaxin TAB] 750 mg PO Q8H PRN #14 tablet 01/21/19 Unknown Rx predniSONE [Deltasone] 50 mg PO QDAY #5 tab 01/21/19 Unknown Rx Allergies Allergy/AdvReac Type Severity Reaction Status Date / Time morphine Allergy Swelling Verified 06/10/15 08:19 nitroglycerin Allergy Angioedema Verified 06/10/15 08:19 NSAIDS (Non-Steroidal Allergy Swelling Verified 06/10/15 08:19 Anti-Inflamma ED Review of Systems ROS: Stated complaint: LOWER BACK PAIN Other details as noted in HPI Constitutional: denies: chills, fever Eyes: denies: eye pain, eye discharge, vision change ENT: denies: ear pain, throat pain Respiratory: denies: cough, shortness of breath, wheezing Cardiovascular: denies: chest pain, palpitations Endocrine: no symptoms reported Gastrointestinal: denies: abdominal pain, nausea, diarrhea Genitourinary: denies: urgency, dysuria, discharge Musculoskeletal: back pain. denies: joint swelling, arthralgia Skin: denies: rash, lesions Neurological: denies: headache, weakness, paresthesias Psychiatric: denies: anxiety, depression Hematological/Lymphatic: denies: easy bleeding, easy bruising ED Past Medical Hx - Past Medical History Previous Medical History?: Yes Hx Hypertension: Yes Hx Heart Attack/AMI: Yes (double heart bypass 07/15) Hx Congestive Heart Failure: Yes Hx Diabetes: No Hx Deep Vein Thrombosis: Yes Hx GERD: Yes (hiatal hernia) Hx COPD: Yes Additional medical history: Crohn's disease. Cardiomyopathy- left ventricle. Life vest in place removed 2017 - Surgical History Hx Coronary Stent: Yes Hx Open Heart Surgery: No (mitral valve replacement (from old chart, pt. unsure)) Hx Pacemaker: Yes Hx Internal Defibrillator: Yes Hx Cholecystectomy: No Hx Appendectomy: No Hx Breast Surgery: No Additional Surgical History: bowel resection- December 2007, (3) Fissurectomies,. Hysterectomy. defibrillator placed 11/2015 - Social History Smoking Status: Light Tobacco Smoker Substance Use Type: None - Medications Home Medications: Home Medications Medication Instructions Recorded Confirmed Last Taken Type Acetaminophen [Acetaminophen TAB] 650 mg PO Q4H PRN #30 tablet 06/27/17 Unknown Rx Atorvastatin [Lipitor] 40 mg PO QHS #30 06/27/17 06/20/17 06/14/15 Rx Bisacodyl [Dulcolax suppos] 10 mg NE QDAY PRN #30 supp.rect 06/27/17 Unknown Rx Cyclobenzaprine [Flexeril 10 MG 5 mg PO Q8H PRN #30 tablet 06/27/17 Unknown Rx TAB] DAPTOmycin 420 mg IV Q24H #1 vial 06/27/17 Unknown Rx Famotidine [Pepcid] 20 mg PO BID #30 tablet 06/27/17 Unknown Rx Gabapentin [Neurontin] 300 mg PO TID #90 06/27/17 06/20/17 Unknown Rx Nicotine [Habitrol] 21 mg TD QDAY #30 patch 06/27/17 Unknown Rx Warfarin [Coumadin] 3 mg PO DAILY@1700 #30 tablet 06/27/17 Unknown Rx oxyCODONE [roxiCODONE] 15 mg PO Q6HR #30 tablet 06/27/17 Unknown Rx Cyclobenzaprine HCl [Flexeril 5 MG 5 mg PO TID PRN #20 tab 11/10/17 Unknown Rx TAB] Prednisone [predniSONE 10 mg 10 mg PO .TAPER #1 tab.ds.pk 11/10/17 Unknown Rx (6-Day Pack, 21 Tabs)] traMADol [Ultram 50 MG tab] 50 mg PO Q6HR PRN #20 tablet 11/10/17 Unknown Rx methOCARBAMOL [Robaxin TAB] 750 mg PO Q8H PRN #14 tablet 01/21/19 Unknown Rx predniSONE [Deltasone] 50 mg PO QDAY #5 tab 01/21/19 Unknown Rx ED Physical Exam - General Limitations: No Limitations General appearance: alert, in no apparent distress - Head Head exam: Present: atraumatic, normocephalic - Eye Eye exam: Present: normal appearance, PERRL, EOMI - ENT ENT exam: Present: mucous membranes moist - Neck Neck exam: Present: normal inspection - Respiratory Respiratory exam: Present: normal lung sounds bilaterally. Absent: respiratory distress - Cardiovascular Cardiovascular Exam: Present: regular rate, normal rhythm. Absent: systolic murmur, diastolic murmur, rubs, gallop - GI/Abdominal GI/Abdominal exam: Present: soft, normal bowel sounds - Extremities Exam Extremities exam: Present: normal inspection, full ROM - Back Exam Back exam: Present: normal inspection, tenderness, paraspinal tenderness. Absent: CVA tenderness (R), CVA tenderness (L), muscle spasm - Neurological Exam Neurological exam: Present: alert, oriented X3 - Psychiatric Psychiatric exam: Present: normal affect, normal mood - Skin Skin exam: Present: warm, dry, intact, normal color. Absent: rash ED Course Vital Signs 01/20/19 01/20/19 21:30 21:39 Temperature 98.1 F 98.1 F Pulse Rate 73 Respiratory 18 18 Rate Blood Pressure 156/80 156/80 Critical care attestation.: If time is entered above; I have spent that time in minutes in the direct care of this critically ill patient, excluding procedure time. ED Disposition Clinical Impression: Chronic back pain Disposition: DC-01 TO HOME OR SELFCARE Is pt being admited?: No Does the pt Need Aspirin: No Condition: Stable Instructions: Back Pain (ED), Chronic Back Pain (ED) Additional Instructions: Please follow-up with your primary care doctor for definitive management of your chronic back pain as we discussed need to follow with an orthopedic provider may also want to entertain the likelihood of the physical therapy Referrals: SHERRY LAWLER MD [Primary Care Provider] - 3-5 Days MAXX DOMINGUEZ MD [Staff Physician] - 3-5 Days
== END 2019-01-21 00:48 | disposition home or self-care (01) ==
LOC: ED 21:24
DX: M54.9 Dorsalgia, unspecified (principal); G89.29 Other chronic pain
CPT/HCPCS: 81001

== ENCOUNTER 2019-06-14 13:26 | Inpatient (IN) | payer MEDICAID ==
--- NOTE | 2019-06-14 14:13 | Emergency Department Report ---
ED Chest Pain HPI - General Chief Complaint: Chest Pain Stated Complaint: CHEST PALPATIONS Time Seen by Provider: 06/14/19 14:03 Source: patient, EMS Mode of arrival: Stretcher Limitations: No Limitations - History of Present Illness Initial Comments: MS SEPULVEDA IS A 54 YO WHO COMES TO THE ER WITH L SIDED CP FOR DAYS. SHE WENT TO [facility] YESTERDAY BUT LEFT BEFORE TESTS BECAUSE SHE HAD TO PAY A BILL. SHE ALSO ENDORSES PALPITATIONS. PT HAS EXTENSIVE HISTORY. MEDS SHE CAN REMEMBER- SHE STATES SHE IS COMPLIANT WITH THEM LIPITOR COUMADIN 3 MG DAILY PERCOCET SHE IS A DAILY SMOKER; DENIES ETOH OR DRUGS HER NOK IS HER SISTER GAGE [phone] Complaint: chest pain Pain Location: left chest Severity: moderate Severity scale (0 -10): 9 Quality: sharp Consistency: intermittent Improves With: medication-other Worsens With: nothing Treatments Prior to Arrival: none - Related Data Previous Rx's Medication Instructions Recorded Last Taken Type Atorvastatin [Lipitor] 40 mg PO QHS #30 06/27/17 06/13/19 Rx Bisacodyl [Dulcolax suppos] 10 mg [place] QDAY PRN #30 supp.rect 06/27/17 06/13/19 Rx Gabapentin [Neurontin] 300 mg PO TID #90 06/27/17 06/13/19 Rx Nicotine [Habitrol] 21 mg TD QDAY #30 patch 06/27/17 06/13/19 Rx Warfarin [Coumadin] 3 mg PO DAILY@1700 #30 tablet 06/27/17 06/13/19 Rx oxyCODONE [roxiCODONE] 15 mg PO Q6HR #30 tablet 06/27/17 06/13/19 Rx Prednisone [predniSONE 10 mg 10 mg PO .TAPER #1 tab.ds.pk 11/10/17 06/13/19 Rx (6-Day Pack, 21 Tabs)] traMADol [Ultram 50 MG tab] 50 mg PO Q6HR PRN #20 tablet 11/10/17 06/13/19 Rx methOCARBAMOL [Robaxin TAB] 750 mg PO Q8H PRN #14 tablet 01/21/19 06/13/19 Rx predniSONE [Deltasone] 50 mg PO QDAY #5 tab 01/21/19 06/13/19 Rx Allergies Allergy/AdvReac Type Severity Reaction Status Date / Time morphine Allergy Swelling Verified 06/10/15 08:19 nitroglycerin Allergy Angioedema Verified 06/10/15 08:19 NSAIDS (Non-Steroidal Allergy Swelling Verified 06/10/15 08:19 Anti-Inflamma Heart Score - HEART Score History: Slightly suspicious EKG: Normal Age: 45-65 Risk factors: > 3 risk factors or hx of atherosclerotic disease Troponin: < normal limit HEART Score: 3 ED Review of Systems ROS: Stated complaint: CHEST PALPATIONS Other details as noted in HPI Comment: All other systems reviewed and negative ED Past Medical Hx - Past Medical History Previous Medical History?: Yes Hx Hypertension: Yes Hx CVA: No Hx Heart Attack/AMI: Yes (double heart bypass 07/15) Hx Congestive Heart Failure: Yes Hx Diabetes: No Hx Deep Vein Thrombosis: Yes Hx Pulmonary Embolism: No Hx GERD: Yes (hiatal hernia) Hx Liver Disease: No Hx Renal Disease: Yes Hx Sickle Cell Disease: No Hx Arthritis: No Hx Headaches / Migraines: No Hx Seizures: No Hx Psychiatric Treatment: No Hx Asthma: No Hx COPD: Yes Hx Tuberculosis: No Hx Dementia: No Hx HIV: No Additional medical history: Crohn's disease. DILATED Cardiomyopathy. Life vest in place removed 2017-. hx DVT in LUE. HPLD. chronic pain - Surgical History Past Surgical History?: Yes Hx Coronary Stent: Yes Hx Open Heart Surgery: No (mitral valve replacement (from old chart, pt. unsure)) Hx Pacemaker: Yes Hx Internal Defibrillator: Yes Hx Cholecystectomy: No Hx Appendectomy: No Hx Breast Surgery: No Additional Surgical History: bowel resection- December 2007, (3) Fissurectomies,. Hysterectomy. defibrillator placed 11/2015 - Family History Family history: no significant - Social History Smoking Status: Current Every Day Smoker Substance Use Type: None - Medications Home Medications: Home Medications Medication Instructions Recorded Confirmed Last Taken Type Atorvastatin [Lipitor] 40 mg PO QHS #30 06/27/17 06/14/19 06/13/19 Rx Bisacodyl [Dulcolax suppos] 10 mg NH QDAY PRN #30 supp.rect 06/27/17 06/14/19 06/13/19 Rx Gabapentin [Neurontin] 300 mg PO TID #90 06/27/17 06/14/19 06/13/19 Rx Nicotine [Habitrol] 21 mg TD QDAY #30 patch 06/27/17 06/14/19 06/13/19 Rx Warfarin [Coumadin] 3 mg PO DAILY@1700 #30 tablet 06/27/17 06/14/19 06/13/19 Rx oxyCODONE [roxiCODONE] 15 mg PO Q6HR #30 tablet 06/27/17 06/14/19 06/13/19 Rx Prednisone [predniSONE 10 mg 10 mg PO .TAPER #1 tab.ds.pk 11/10/17 06/14/19 06/13/19 Rx (6-Day Pack, 21 Tabs)] traMADol [Ultram 50 MG tab] 50 mg PO Q6HR PRN #20 tablet 11/10/17 06/14/19 06/13/19 Rx methOCARBAMOL [Robaxin TAB] 750 mg PO Q8H PRN #14 tablet 01/21/19 06/14/19 06/13/19 Rx predniSONE [Deltasone] 50 mg PO QDAY #5 tab 01/21/19 06/14/19 06/13/19 Rx ED Physical Exam - General Limitations: No Limitations General appearance: alert - Head Head exam: Present: normocephalic - Eye Eye exam: Present: PERRL - ENT ENT exam: Present: mucous membranes moist - Neck Neck exam: Present: normal inspection - Respiratory Respiratory exam: Present: normal lung sounds bilaterally, wheezes - Cardiovascular Cardiovascular Exam: Present: regular rate, tachycardia, other (MECHANICAL CLICK; NO JVD; NO EDEMA) - GI/Abdominal GI/Abdominal exam: Present: soft, normal bowel sounds - Rectal Rectal exam: Present: deferred - Extremities Exam Extremities exam: Present: normal inspection, full ROM. Absent: tenderness, normal capillary refill, pedal edema, joint swelling - Back Exam Back exam: Present: normal inspection - Neurological Exam Neurological exam: Present: alert, oriented X3, CN II-XII intact - Psychiatric Psychiatric exam: Present: normal affect, normal mood - Skin Skin exam: Present: warm, dry, intact ED Course Vital Signs 06/14/19 06/14/19 06/14/19 13:28 14:06 15:00 Temperature 98.5 F Pulse Rate 132 H 137 H Respiratory 20 27 H 16 Rate Blood Pressure 137/101 167/105 O2 Sat by Pulse 100 97 97 Oximetry 06/14/19 06/14/19 06/14/19 15:18 15:48 15:51 Temperature Pulse Rate 13 L Respiratory 18 24 Rate Blood Pressure 168/104 O2 Sat by Pulse Oximetry 06/14/19 17:43 Temperature Pulse Rate 132 H Respiratory 20 Rate Blood Pressure 159/100 O2 Sat by Pulse Oximetry JEREMY score - Jeremy Score Age > 65: (0) No Aspirin use within the Past 7 Days: (0) No 3 or more CAD Risk Factors: (1) Yes 2 or more Angina events in past 24 hrs: (0) No Known CAD with more than 50% Stenosis: (0) No Elevated Cardiac Markers: (0) No ST Deviation Greater than 0.5mm: (0) No JEREMY Score: 1 ED Medical Decision Making - Lab Data Result diagrams: 06/14/19 14:41 06/14/19 14:41 - EKG Data -: EKG Interpreted by Me Rate: tachycardia - EKG Data When compared to previous EKG there are: no significant change Interpretation: no acute changes - Radiology Data Radiology results: report reviewed, image reviewed - Medical Decision Making Labs 06/14/19 06/14/19 06/14/19 14:41 14:41 14:43 WBC 6.5 RBC 4.30 Hgb 12.2 Hct 37.7 MCV 88 MCH 28 MCHC 32 RDW 19.0 H Plt Count 273 Lymph % (Auto) 12.8 L Ralls % (Auto) 7.8 H Eos % (Auto) 0.5 Baso % (Auto) 2.2 H Lymph # 0.8 L Ralls # 0.5 Eos # 0.0 Baso # 0.1 Seg Neutrophils % 76.7 H Seg Neutrophils # 5.0 PT 19.9 H INR 1.73 H APTT 33.7 D-Dimer 251.76 H Sodium 142 Potassium 3.3 L Chloride 104.0 Carbon Dioxide 25 Anion Gap 16 BUN 30 H Creatinine 1.3 H Estimated GFR 51 BUN/Creatinine Ratio 23 Glucose 90 Calcium 8.9 Total Bilirubin 1.50 H AST 20 ALT 15 Alkaline Phosphatase 70 Troponin T Total Protein 7.0 Albumin 3.5 L Albumin/Globulin Ratio 1.0 Urine Opiates Screen Urine Methadone Screen Ur Barbiturates Screen Ur Phencyclidine Scrn Ur Amphetamines Screen U Benzodiazepines Scrn Urine Cocaine Screen U Marijuana (THC) Screen Drugs of Abuse Note 06/14/19 06/14/19 06/14/19 14:44 15:03 15:58 WBC RBC Hgb Hct MCV MCH MCHC RDW Plt Count Lymph % (Auto) Ralls % (Auto) Eos % (Auto) Baso % (Auto) Lymph # Ralls # Eos # Baso # Seg Neutrophils % Seg Neutrophils # PT INR APTT D-Dimer Sodium Potassium Chloride Carbon Dioxide Anion Gap BUN Creatinine Estimated GFR BUN/Creatinine Ratio Glucose Calcium Total Bilirubin AST ALT Alkaline Phosphatase Troponin T 0.010 < 0.010 Total Protein Albumin Albumin/Globulin Ratio Urine Opiates Screen Presumptive negative Urine Methadone Screen Presumptive negative Ur Barbiturates Screen Presumptive negative Ur Phencyclidine Scrn Presumptive negative Ur Amphetamines Screen Presumptive negative U Benzodiazepines Scrn Presumptive negative Urine Cocaine Screen Presumptive negative U Marijuana (THC) Screen Presumptive negative Drugs of Abuse Note Disclamer Vital Signs 06/14/19 06/14/19 06/14/19 13:28 14:06 15:00 Temperature 98.5 F Pulse Rate 132 H 137 H Respiratory 20 27 H 16 Rate Blood Pressure 137/101 167/105 O2 Sat by Pulse 100 97 97 Oximetry 06/14/19 06/14/19 06/14/19 15:18 15:48 15:51 Temperature Pulse Rate 13 L Respiratory 18 24 Rate Blood Pressure 168/104 O2 Sat by Pulse Oximetry LABS NOTED 12 LEAD NOTED HYDRAL/LABETOLOL GIVEN IN ER FOR BP/HR CONTROL PT CO CP GIVEN DILAUDID X 2- SEE PMH DIMER ELEVATED CTA NEG FOR LARGE PE TROP NEG INR SUBTHERAPEUTIC- PT TAKES 3 MG DAILY DISCUSSED WITH DR SOLANO- CARDS ADMIT TO HMED, HEP DRIP, METOP. AND ECHO IN AM DISCUSSED WITH DR MELENDEZ [id number] - Differential Diagnosis RO ACS/ PE Critical care attestation.: If time is entered above; I have spent that time in minutes in the direct care of this critically ill patient, excluding procedure time. ED Disposition Clinical Impression: Hypokalemia, Subtherapeutic anticoagulation, Tachycardia, HTN (hypertension), H/O mitral valve replacement with mechanical valve, Chest pain Disposition: OP ADMIT IP TO THIS HOSP Is pt being admited?: Yes Does the pt Need Aspirin: No Condition: Stable Time of Disposition: 16:57
--- NOTE | 2019-06-14 14:20 | XRay Report ---
CHEST 1 VIEW INDICATION: Chest Pain. COMPARISON: 06/22/2017 FINDINGS: Support devices: A single lead external pacing device is unchanged. Heart: Stable cardiomegaly. Pulmonary vasculature: Increased central vascular congestion. Lungs/Pleura: Right basal and lingular subsegmental atelectasis versus scar. No pulmonary consolidati on. No pleural effusion. Additional findings: Median sternotomy wires. IMPRESSION: Cardiomegaly and pulmonary venous hypertension. No pulmonary edema.Right basal and lingular subsegmen freda atelectasis versus pulmonary scar. Signer Name: Brigido Louie MD Signed: 06/14/2019 2:15 PM Workstation Name: [id number]
[2019-06-14] MEDS ORDERED: APRESOLINE IV ONE (15:03)
[2019-06-14] MEDS ORDERED: DILAUDID IV ONE ×2 (15:03→17:21)
[2019-06-14 15:05] LABS: Basophils # (Auto) 0.1 K/mm3 (0.0-0.1); Basophils % (Auto) 2.2 % (0.0-1.8); Eosinophils % (Auto) 0.5 % (0.0-4.3); Hematocrit 37.7 % (30.3-42.9); Hemoglobin 12.2 gm/dl (10.1-14.3); Lymphocytes # (Auto) 0.8 K/mm3 (1.2-5.4); Lymphocytes % (Auto) 12.8 % (13.4-35.0); Mean Corpuscular HGB Conc 32 % (30-34); Mean Corpuscular Volume 88 fl (79-97); Monocytes # (Auto) 0.5 K/mm3 (0.0-0.8); Monocytes % (Auto) 7.8 % (0.0-7.3); Platelet Count 273 K/mm3 (140-440)
[2019-06-14 15:15] LABS: Albumin 3.5 g/dL (3.9-5); Calcium 8.9 mg/dL (8.4-10.2)
[2019-06-14 15:17] LABS: INR 1.73 (0.87-1.13)
[2019-06-14 15:18] LABS: Partial Thromboplastin Time 33.7 Sec. (24.2-36.6)
[2019-06-14 15:29] LABS: Amphetamine Screen,Urine PRESUMPTIVE NEGATIVE; Benzodiazepines Screen,Urine PRESUMPTIVE NEGATIVE; Cannabinoid Screen,Urine PRESUMPTIVE NEGATIVE; Cocaine Screen,Urine PRESUMPTIVE NEGATIVE; Methadone Screen,Urine PRESUMPTIVE NEGATIVE; Opiate Screen,Urine PRESUMPTIVE NEGATIVE
--- NOTE | 2019-06-14 16:48 | Cat Scan Report ---
CTA chest with contrast INDICATION : chest pain,sob. TECHNIQUE: Axial imaging performed through the chest, with contrast bolus timing set to maximize opa cification of the pulmonary arteries. 3-plane MIP reformatted images were obtained. All CT scans at this location are performed using CT dose reduction for ALARA by means of automated exposure control. 100 mL of intravenous contrast administered. COMPARISON: None FINDINGS: Bolus: Contrast bolus timing is adequate. There is respiratory motion artifact especially in the etienne g bases which limits the exam. PTE: No central or segmental filling defect identified to suggest PTE although again the subsegmenta l distribution especially in the lung bases is quite limited given significant motion. Mediastinum: Postoperative change seen in the mediastinum with prosthetic aortic and mitral valves. Mild cardiomegaly. No pathologic mediastinal adenopathy. Lungs: Again there is respiratory motion artifact with streaky bibasilar airspace disease likely rep resenting atelectasis especially since there is also mild pleural thickening in the bases. A few shod dy hilar lymph nodes are present, notably on the right. Upper abdomen: Limited imaging of the upper abdomen shows nothing acute. Gastric bypass change pres ent. Bones: Degenerative changes in the spine with nothing acute. IMPRESSION: 1. Motion limited exam as outlined above with no central or segmental PTE. The subsegmental distribut ion especially in the lung bases is not adequately evaluated on this exam. 2. Mild bibasilar atelectasis. Signer Name: Abhilash Recio MD Signed: 06/14/2019 4:43 PM Workstation Name: [id number]
[2019-06-14] MEDS ORDERED: NORMODYNE IV ONE (17:21)
[2019-06-14 17:46] LABS: Bacteria,Urine 1+ /HPF (Negative); Bilirubin,Urine NEG (Negative); Blood,Urine NEG (Negative); Color,Urine Yellow (Yellow); Protein,Urine <15 mg/dL mg/dL (Negative); Urobilinogen,Urine < 2.0 mg/dL (<2.0)
[2019-06-14] MEDS ORDERED: HEPARIN 10,000 UNITS/10 ML IV ONE (18:35)
[2019-06-14] MEDS ORDERED: K-DUR PO ONE ×2 (18:51→19:58)
[2019-06-14] MEDS ORDERED: DULCOLAX PR PRN (18:54)
[2019-06-14] MEDS ORDERED: ROBAXIN PO PRN (18:54)
--- NOTE | 2019-06-14 19:00 | History and Physical Report ---
History of Present Illness Chief complaint: My chest is Hurting History of present illness: 54 YO Female with HTN, NV, CAD S/P Stent Placement and CABG, Nicotine Dependence, Systolic/Diastolic CHF, DVT, GERD, Crohns Disease, Cardiomyopathy S/P life Vest Placement and Removal, Chronic Pain, COPD presents to ED for eval uation. Pt states that she has experienced pain in her chest over the pst 3 days with worsening symptoms over the same time frame. Pt states that pain is 9/10, initially intermittent but has become more frequent over the past 3 days, sharp, localized to the left chest, nonradiating, not worsened with exertion, not relieved with rest. Pt acknowledges shortness of breath, decreased exercise tolerance, Orthopnea/PND. Pt denies medication noncompliance. EMS notified, and upon arrival the patient was found to be in distress and transported to [facility]. Pt seen and evaluated in ED and found to have symptoms consistent with CHF Decompensation, Angina, and subtherapeutic INR. Cardiology consulted in ED. Pt initiated on heparin drip. Pt denies fever, chills, NVD, Trauma, Productive cough, skin rash, or recent ill contacts. Prior admission on 06/19/17 reviewed. All listed medication reconciled at time of admission. Past History Past Medical History: other (see hpi) Past Surgical History: valve replacement, bowel surgery, Other (ICD/Pacemaker) Social history: , lives with family, smoking. denies: alcohol abuse, prescription drug abuse Family history: CAD, hypertension Medications and Allergies Allergies Allergy/AdvReac Type Severity Reaction Status Date / Time morphine Allergy Swelling Verified 06/10/15 08:19 nitroglycerin Allergy Angioedema Verified 06/10/15 08:19 NSAIDS (Non-Steroidal Allergy Swelling Verified 06/10/15 08:19 Anti-Inflamma Home Medications Medication Instructions Recorded Confirmed Last Taken Type Atorvastatin [Lipitor] 40 mg PO QHS #30 06/27/17 06/14/19 06/13/19 Rx Bisacodyl [Dulcolax suppos] 10 mg OK QDAY PRN #30 supp.rect 06/27/17 06/14/19 1 Rx Gabapentin [Neurontin] 300 mg PO TID #90 06/27/17 06/14/19 06/13/19 Rx Nicotine [Habitrol] 21 mg TD QDAY #30 patch 06/27/17 06/14/19 06/13/19 Rx Warfarin [Coumadin] 3 mg PO DAILY@1700 #30 tablet 06/27/17 06/14/19 06/13/19 Rx oxyCODONE [roxiCODONE] 15 mg PO Q6HR #30 tablet 06/27/17 06/14/19 06/13/19 Rx Prednisone [predniSONE 10 mg 10 mg PO .TAPER #1 tab.ds.pk 11/10/17 06/14/19 06/13/19 Rx (6-Day Pack, 21 Tabs)] traMADol [Ultram 50 MG tab] 50 mg PO Q6HR PRN #20 tablet 11/10/17 06/14/19 06/13/19 Rx methOCARBAMOL [Robaxin TAB] 750 mg PO Q8H PRN #14 tablet 01/21/19 06/14/19 06/13/19 Rx predniSONE [Deltasone] 50 mg PO QDAY #5 tab 01/21/19 06/14/19 06/13/19 Rx Active Meds: Active Medications Atorvastatin Calcium (Lipitor) 40 mg PO QHS [facility] Bisacodyl (Dulcolax) 10 mg OK QDAY PRN PRN Reason: Constipation unrelieved by MOM Gabapentin (Neurontin) 300 mg PO TID [facility] Methocarbamol (Robaxin) 750 mg PO Q8H PRN PRN Reason: Pain, Moderate (4-6) Metoprolol Tartrate (Lopressor) 50 mg PO Q8H REPLACED BY [facility] Nicotine (Habitrol) 21 mg TD QDAY [facility] Oxycodone HCl (Roxicodone) 15 mg PO Q6HR [facility] Tramadol HCl (Ultram) 50 mg PO Q6HR PRN PRN Reason: PAIN Warfarin Sodium (Coumadin) 3 mg PO DAILY@1700 REPLACED BY [facility]; Protocol Review of Systems Constitutional: no weight loss, no weight gain, no fever, no chills Ears, nose, mouth and throat: no ear pain, no ear discharge, no tinnitis, no nose pain, no nasal congestion, no nasal discharge Breasts: no change in shape, no swelling, no mass Cardiovascular: chest pain, orthopnea, shortness of breath, dyspnea on exertion, paroxysmal nocturnal dyspnea, decreased exercise tolerance, no rapid/irregular heart beat, no lightheadedness Respiratory: no cough, no cough with sputum, no excessive sputum, no hemoptysis Gastrointestinal: no abdominal pain, no nausea, no vomiting, no diarrhea, no constipation Genitourinary Female: no pelvic pain, no dysuria, no urinary frequency, no urgency Rectal: no pain, no incontinence, no bleeding Musculoskeletal: no neck stiffness, no neck pain, no shooting arm pain, no arm numbness/tingling, no low back pain Integumentary: no rash, no pruritis, no redness, no sores, no wounds Neurological: no paralysis, no weakness, no parathesias, no numbness, no tingling, no seizures Psychiatric: no anxiety, no memory loss, no change in sleep habits, no sleep disturbances, no insomnia, no hypersomnia, no change in appetite Endocrine: no cold intolerance, no heat intolerance, no polyphagia, no excessive thirst, no polydipsia, no polyuria Hematologic/Lymphatic: no easy bruising, no easy bleeding, no lymphadenopathy, no lymphedema Allergic/Immunologic: no urticaria, no allergic rhinitis, no wheezing, no persistent infections, no anaphylaxis, no angioedema Exam - Constitutional Vitals: Temp Pulse Resp BP Pulse Ox 98.5 F 132 H 20 159/100 97 06/14/19 13:28 06/14/19 17:43 06/14/19 17:43 06/14/19 17:43 06/14/19 15:00 General appearance: Present: mild distress, obese - EENT Eyes: Present: PERRL ENT: hearing intact, clear oral mucosa - Neck Neck: Present: supple, normal ROM - Respiratory Respiratory effort: normal Respiratory: bilateral: CTA - Cardiovascular Rhythm: other (tachycardia) Heart Sounds: Present: S1 & S2. Absent: rub, click - Extremities Extremities: pulses symmetrical, No edema Peripheral Pulses: within normal limits - Abdominal General gastrointestinal: Present: soft, non-tender, non-distended, normal bowel sounds Female genitourinary: Present: normal - Integumentary Integumentary: Present: clear, warm, dry - Musculoskeletal Musculoskeletal: gait normal, strength equal bilaterally - Psychiatric Psychiatric: appropriate mood/affect, intact judgment & insight - Neurologic Neurologic: CNII-XII intact, moves all extremities Results - Labs CBC & Chem 7: 06/14/19 18:46 06/14/19 14:41 Labs: Abnormal lab results 06/14/19 06/14/19 06/14/19 Range/Units 14:41 14:41 14:43 RDW 19.0 H (13.2-15.2) % Lymph % (Auto) 12.8 L (13.4-35.0) % [place] % (Auto) 7.8 H (0.0-7.3) % Baso % (Auto) 2.2 H (0.0-1.8) % Lymph # 0.8 L (1.2-5.4) K/mm3 Seg Neutrophils % 76.7 H (40.0-70.0) % PT 19.9 H (12.2-14.9) Sec. INR 1.73 H (0.87-1.13) D-Dimer 251.76 H (0-234) ng/mlDDU Potassium 3.3 L (3.6-5.0) mmol/L BUN 30 H (7-17) mg/dL Creatinine 1.3 H (0.7-1.2) mg/dL Total Bilirubin 1.50 H (0.1-1.2) mg/dL Albumin 3.5 L (3.9-5) g/dL Assessment and Plan - Patient Problems (1) Acute exacerbation of CHF (congestive heart failure) Current Visit: No Status: Acute Qualifiers: Qualified Code(s): I50.43 - Acute on chronic combined systolic (congestive) and diastolic (congestive) heart failure Plan to address problem: Admit to telemetry, Echo, thyroid panel, bnp, strict I/O, daily weight, monitor uop q shift, pulse oximetry, chest x ray, supplemental oxygen, blood pressure control, afterload reduction, cardiology consulted. (2) Angina at rest Current Visit: Yes Status: Acute Plan to address problem: Cardiology consulted, serial cardiac enzymes, ekg, telemetry, morphine, supplemental oxygen, nitro, continue therapeutic anticoagulation,, supportive care. (3) Nicotine dependence with withdrawal Current Visit: Yes Status: Acute Qualifiers: Nicotine product type: cigarettes Qualified Code(s): F17.213 - Nicotine dependence, cigarettes, with withdrawal Plan to address problem: smoking cesation counseling, +15min, supportive care. (4) GERD (gastroesophageal reflux disease) Current Visit: Yes Status: Acute Qualifiers: Esophagitis presence: without esophagitis Qualified Code(s): K21.9 - Gastro-esophageal reflux disease without esophagitis Plan to address problem: PPI therapy, supportive care. (5) HTN (hypertension) Current Visit: Yes Status: Acute Qualifiers: Hypertension type: essential hypertension Qualified Code(s): I10 - Essential (primary) hypertension Plan to address problem: Monitor BP q shift, continue medical management. (6) CAD (coronary artery disease) Current Visit: Yes Status: Acute Qualifiers: Associated angina: with stable angina Plan to address problem: low fat, low cholesterol diet, lipid panel, statin therapy, risk factor reduction (7) H/O mitral valve replacement with mechanical valve Current Visit: Yes Status: Acute Plan to address problem: Cardiology consulted, Echo, supportive care, CTA chest, (8) DVT prophylaxis Current Visit: Yes Status: Acute Plan to address problem: DVT prophylaxis, Continue therapeutic anticoagulation
[2019-06-14] MEDS ORDERED: SODIUM CHLORIDE FLUSH SYRINGE 10 ML IV PRN (19:05)
[2019-06-14] MEDS ORDERED: ZOFRAN IV PRN (19:05)
[2019-06-14] MEDS ORDERED: PROVENTIL IH PRN (19:05)
[2019-06-14] MEDS ORDERED: TYLENOL PO PRN (19:05)
[2019-06-14 19:28] LABS: Hemoglobin 13.2 gm/dl (10.1-14.3)
[2019-06-14 19:41] LABS: INR 1.99 (0.87-1.13)
[2019-06-14] MEDS: LOPRESSOR PO SCH (19:57)
[2019-06-14] MEDS ORDERED: LOPRESSOR ONE (19:57)
[2019-06-14 20:07] LABS: Free T4 (Free Thyroxine) 2.58 ng/dL (0.76-1.46)
[2019-06-14 20:50] LABS: Partial Thromboplastin Time 185.6 Sec. (24.2-36.6)
[2019-06-14] MEDS: COUMADIN PO SCH (21:35)
[2019-06-14] MEDS: NEURONTIN PO SCH (21:35)
[2019-06-14] MEDS: ULTRAM PO PRN (21:36)
[2019-06-14] MEDS: SODIUM CHLORIDE FLUSH SYRINGE 10 ML IV SCH (21:36)
[2019-06-14] MEDS: ROXICODONE PO SCH (23:29)
[2019-06-15] MEDS: LOPRESSOR PO SCH ×4 (03:48→18:35)
[2019-06-15] MEDS: ROXICODONE PO SCH ×3 (05:28→17:10)
[2019-06-15 06:13] LABS: Chol/HDL Ratio 3.5 %
[2019-06-15 07:21] LABS: Alanine Aminotransferase 13 units/L (7-56); Albumin 3.8 g/dL (3.9-5); BUN/Creatinine Ratio 24; Blood Urea Nitrogen 19 mg/dL (7-17); Calcium 9.3 mg/dL (8.4-10.2); Hemolysis Index 9
[2019-06-15 07:26] LABS: Eosinophils # (Auto) 0.1 K/mm3 (0.0-0.4); Eosinophils % (Auto) 1.3 % (0.0-4.3); Monocytes # (Auto) 0.5 K/mm3 (0.0-0.8); Monocytes % (Auto) 8.9 % (0.0-7.3)
[2019-06-15 08:02] LABS: Hematocrit 39.9 % (30.3-42.9); Hemoglobin 12.8 gm/dl (10.1-14.3); Lymphocytes % (Auto) 20.2 % (13.4-35.0); Mean Corpuscular HGB Conc 32 % (30-34); Mean Corpuscular Volume 87 fl (79-97); Mean Platelet Volume 9.4 fl (6-12); Platelet Count 289 K/mm3 (140-440); Red Blood Count 4.57 M/mm3 (3.65-5.03); Red Cell Distribution Width 18.8 % (13.2-15.2)
[2019-06-15 08:03] LABS: Basophils % (Auto) 0.3 % (0.0-1.8); Lymphocytes # (Auto) 1.2 K/mm3 (1.2-5.4)
--- NOTE | 2019-06-15 11:27 | Consultation ---
<LISETH NUNES - Last Filed: 06/15/19 13:45> History of Present Illness Consult date: 06/15/19 Consult reason: tachycardia History of present illness: Patient has extensive cardiac history. In 2013, she underwent mechanical mitral valve replacement for symptomatic mitral regurgitation and tricuspid valve repair. A cardiac catheterization prior to her valve surgery revealed no significant coronary disease, and she did not require bypass surgery. Instead, she was found to have a nonischemic cardiomyopathy. In 2014, she underwent aortic valve replacement. Patient also has a subcutaneous cardiac defibrillator. Patient is on warfarin for anticoagulation therapy. Her latest echocardiogram done in 2016 shows a well functioning mechanical mitral prosthesis and a res olving cardiomyopathy left ventricular ejection fraction 45-50%. This is a 54-year old woman who presented with palpitations. In addition, patient complains of shortness of breath with wheezing. She denies chest pain. Her presenting ECG is rapid atrial fibrillation. This was treated with metoprolo l in the emergency department. INR therapeutic at 1.99. Patient denies recent cardiac workup but reports she is followed by [facility]. Past History Past Surgical History: valve replacement, bowel surgery, Other (ICD) Social history: , lives with family, smoking. denies: alcohol abuse, prescription drug abuse Family history: CAD, hypertension Medications and Allergies Allergies Allergy/AdvReac Type Severity Reaction Status Date / Time nitroglycerin Allergy Angioedema Verified 06/10/15 08:19 NSAIDS (Non-Steroidal Allergy Swelling Verified 06/10/15 08:19 Anti-Inflamma Home Medications Medication Instructions Recorded Confirmed Last Taken Type Atorvastatin [Lipitor] 40 mg PO QHS #30 06/27/17 06/14/19 06/13/19 Rx Bisacodyl [Dulcolax suppos] 10 mg [place] QDAY PRN #30 supp.rect 06/27/17 06/14/19 06/13/19 Rx Gabapentin [Neurontin] 300 mg PO TID #90 06/27/17 06/14/19 06/13/19 Rx Nicotine [Habitrol] 21 mg TD QDAY #30 patch 06/27/17 06/14/19 06/13/19 Rx Warfarin [Coumadin] 3 mg PO DAILY@1700 #30 tablet 06/27/17 06/14/19 06/13/19 Rx oxyCODONE [roxiCODONE] 15 mg PO Q6HR #30 tablet 06/27/17 06/14/19 06/13/19 Rx Prednisone [predniSONE 10 mg 10 mg PO .TAPER #1 tab.ds.pk 11/10/17 06/14/19 06/13/19 Rx (6-Day Pack, 21 Tabs)] traMADol [Ultram 50 MG tab] 50 mg PO Q6HR PRN #20 tablet 11/10/17 06/14/19 06/13/19 Rx methOCARBAMOL [Robaxin TAB] 750 mg PO Q8H PRN #14 tablet 01/21/19 06/14/19 06/13/19 Rx predniSONE [Deltasone] 50 mg PO QDAY #5 tab 01/21/19 06/14/19 06/13/19 Rx Active Meds: Active Medications Acetaminophen (Tylenol) 650 mg PO Q4H PRN PRN Reason: Pain MILD(1-3)/Fever >100.5/VACA Albuterol (Proventil) 2.5 mg IH Q4HRT PRN PRN Reason: Shortness Of Breath Atorvastatin Calcium (Lipitor) 40 mg PO QHS [facility] Last Admin: 06/14/19 21:36 Dose: 40 mg Documented by: Bisacodyl (Dulcolax) 10 mg MA QDAY PRN PRN Reason: Constipation unrelieved by MOM Gabapentin (Neurontin) 300 mg PO TID [facility] Last Admin: 06/14/19 21:35 Dose: 300 mg Documented by: Methocarbamol (Robaxin) 750 mg PO Q8H PRN PRN Reason: Pain, Moderate (4-6) Metoprolol Tartrate (Lopressor) 50 mg PO Q8H [facility] Last Admin: 06/15/19 03:48 Dose: 50 mg Documented by: Nicotine (Habitrol) 21 mg TD QDAY [facility] Ondansetron HCl (Zofran) 4 mg IV Q8H PRN PRN Reason: Nausea And Vomiting Oxycodone HCl (Roxicodone) 15 mg PO Q6HR [facility] Last Admin: 06/15/19 05:28 Dose: 15 mg Documented by: Sodium Chloride (Sodium Chloride Flush Syringe 10 Ml) 10 ml IV BID [facility] Last Admin: 06/14/19 21:36 Dose: 10 ml Documented by: Sodium Chloride (Sodium Chloride Flush Syringe 10 Ml) 10 ml IV PRN PRN PRN Reason: LINE FLUSH Tramadol HCl (Ultram) 50 mg PO Q6HR PRN PRN Reason: PAIN Last Admin: 06/14/19 21:36 Dose: 50 mg Documented by: Warfarin Sodium (Coumadin) 4 mg PO DAILY@1700 [facility] Last Admin: 06/14/19 21:35 Dose: 4 mg Documented by: Physical Examination Vital Signs Temp Pulse Resp BP Pulse Ox 98.5 F 132 H 20 137/101 100 06/14/19 13:28 06/14/19 13:28 06/14/19 13:28 06/14/19 13:28 06/14/19 13:28 Results 06/15/19 06:30 06/15/19 06:30 Cardiac Enzymes 06/14/19 06/15/19 Range/Units 14:41 06:30 AST 20 28 (5-40) units/L Coagulation 06/14/19 06/14/19 Range/Units 14:43 18:46 PT 19.9 H 22.2 H (12.2-14.9) Sec. INR 1.73 H 1.99 H (0.87-1.13) APTT 33.7 185.6 H* (24.2-36.6) Sec. Lipids 06/14/19 Range/Units 19:05 Triglycerides 111 (2-149) mg/dL Cholesterol 133 (50-199) mg/dL HDL Cholesterol 38 L (40-59) mg/dL Cholesterol/HDL Ratio 3.50 % CBC 06/14/19 06/14/19 06/15/19 Range/Units 14:41 18:46 06:30 WBC 6.5 6.1 (4.5-11.0) K/mm3 RBC 4.30 4.57 (3.65-5.03) M/mm3 Hgb 12.2 13.2 12.8 (10.1-14.3) gm/dl Hct 37.7 42.0 39.9 (30.3-42.9) % Plt Count 273 281 289 (140-440) K/mm3 Lymph # 0.8 L 1.2 (1.2-5.4) K/mm3 [place] # 0.5 0.5 (0.0-0.8) K/mm3 Eos # 0.0 0.1 (0.0-0.4) K/mm3 Baso # 0.1 0.0 (0.0-0.1) K/mm3 Comprehensive Metabolic Panel 06/14/19 06/15/19 Range/Units 14:41 06:30 Sodium 142 144 (137-145) mmol/L Potassium 3.3 L 3.8 (3.6-5.0) mmol/L Chloride 104.0 105.8 (98-107) mmol/L Carbon Dioxide 25 23 (22-30) mmol/L BUN 30 H 19 H (7-17) mg/dL Creatinine 1.3 H 0.8 (0.7-1.2) mg/dL Glucose 90 103 H (65-100) mg/dL Calcium 8.9 9.3 (8.4-10.2) mg/dL AST 20 28 (5-40) units/L ALT 15 13 (7-56) units/L Alkaline Phosphatase 70 82 (35-129) units/L Total Protein 7.0 7.9 (6.3-8.2) g/dL Albumin 3.5 L 3.8 L (3.9-5) g/dL Assessment and Plan Paroxysmal Afib Mitral valve replacement, mechanical (2013) on warfarin as an outpatient. well functioning mechanical mitral valve on echo, EF 45-50% 05/2017 Cardiac cath 2013 prior to her valve surgery revealed no significant coronary disease, and she did not require bypass surgery. Aortic valve replacement (2014) Tricuspid valve repair 2014 Trans-aortic septal myectomy 2013 Resolving Nonischemic cardiomyopathy Presence of subcutaneous AICD Obesity Continue warfarin for mechanical MV. Beta blockers for rate control of paroxysmal atrial fibrillation. Echocardiogram for valve assessment. <ANTWAN EMERSON - Last Filed: 06/15/19 17:11> Medications and Allergies Active Meds: Active Medications Acetaminophen (Tylenol) 650 mg PO Q4H PRN PRN Reason: Pain MILD(1-3)/Fever >100.5/VACA Albuterol (Proventil) 2.5 mg IH Q4HRT PRN PRN Reason: Shortness Of Breath Atorvastatin Calcium (Lipitor) 40 mg PO QHS [facility] Last Admin: 06/14/19 21:36 Dose: 40 mg Documented by: Bisacodyl (Dulcolax) 10 mg MA QDAY PRN PRN Reason: Constipation unrelieved by MOM Last Admin: 06/15/19 16:51 Dose: 10 mg Documented by: Gabapentin (Neurontin) 300 mg PO TID [facility] Last Admin: 06/15/19 13:26 Dose: Not Given Documented by: Methocarbamol (Robaxin) 750 mg PO Q8H PRN PRN Reason: Pain, Moderate (4-6) Metoprolol Tartrate (Lopressor) 50 mg PO Q8H [facility] Last Admin: 06/15/19 11:30 Dose: 50 mg Documented by: Morphine Sulfate (Morphine) 2 mg IV Q4H PRN PRN Reason: Pain, Moderate (4-6) Last Admin: 06/15/19 13:55 Dose: 2 mg Documented by: Nicotine (Habitrol) 21 mg TD QDAY [facility] Last Admin: 06/15/19 12:06 Dose: Not Given Documented by: Ondansetron HCl (Zofran) 4 mg IV Q8H PRN PRN Reason: Nausea And Vomiting Oxycodone HCl (Roxicodone) 15 mg PO Q6HR [facility] Last Admin: 06/15/19 11:30 Dose: 15 mg Documented by: Sodium Chloride (Sodium Chloride Flush Syringe 10 Ml) 10 ml IV BID [facility] Last Admin: 06/15/19 12:07 Dose: 10 ml Documented by: Sodium Chloride (Sodium Chloride Flush Syringe 10 Ml) 10 ml IV PRN PRN PRN Reason: LINE FLUSH Tramadol HCl (Ultram) 50 mg PO Q6HR PRN PRN Reason: PAIN Last Admin: 06/14/19 21:36 Dose: 50 mg Documented by: Warfarin Sodium (Coumadin) 4 mg PO DAILY@1700 [facility] Last Admin: 06/15/19 16:50 Dose: 4 mg Documented by: Physical Examination Vital Signs Temp Pulse Resp BP Pulse Ox 98.5 F 132 H 20 137/101 100 06/14/19 13:28 06/14/19 13:28 06/14/19 13:28 06/14/19 13:28 06/14/19 13:28 Results 06/15/19 06:30 06/15/19 06:30 Cardiac Enzymes 06/15/19 Range/Units 06:30 AST 28 (5-40) units/L Coagulation 06/14/19 Range/Units 18:46 PT 22.2 H (12.2-14.9) Sec. INR 1.99 H (0.87-1.13) APTT 185.6 H* (24.2-36.6) Sec. Lipids 06/14/19 Range/Units 19:05 Triglycerides 111 (2-149) mg/dL Cholesterol 133 (50-199) mg/dL HDL Cholesterol 38 L (40-59) mg/dL Cholesterol/HDL Ratio 3.50 % CBC 06/14/19 06/15/19 Range/Units 18:46 06:30 WBC 6.1 (4.5-11.0) K/mm3 RBC 4.57 (3.65-5.03) M/mm3 Hgb 13.2 12.8 (10.1-14.3) gm/dl Hct 42.0 39.9 (30.3-42.9) % Plt Count 281 289 (140-440) K/mm3 Lymph # 1.2 (1.2-5.4) K/mm3 [place] # 0.5 (0.0-0.8) K/mm3 Eos # 0.1 (0.0-0.4) K/mm3 Baso # 0.0 (0.0-0.1) K/mm3 Comprehensive Metabolic Panel 06/15/19 Range/Units 06:30 Sodium 144 (137-145) mmol/L Potassium 3.8 (3.6-5.0) mmol/L Chloride 105.8 (98-107) mmol/L Carbon Dioxide 23 (22-30) mmol/L BUN 19 H (7-17) mg/dL Creatinine 0.8 (0.7-1.2) mg/dL Glucose 103 H (65-100) mg/dL Calcium 9.3 (8.4-10.2) mg/dL AST 28 (5-40) units/L ALT 13 (7-56) units/L Alkaline Phosphatase 82 (35-129) units/L Total Protein 7.9 (6.3-8.2) g/dL Albumin 3.8 L (3.9-5) g/dL Assessment and Plan I have seen and evaluated the patient and agree with the assessment and plan. T he patient presents with Paroxysmal Afib, Mitral valve replacement, mechanical (2013), and Aortic valve replacement (2014). Recommend continued rate control strategy for treatment of atrial fibrillation. Continue anticoagulation with coumadin for mechanical valve. echocardiogram for evaluation of valves is pending.
[2019-06-15] MEDS: NEURONTIN PO SCH ×4 (12:05→21:55)
[2019-06-15] MEDS: HABITROL TD SCH (12:06)
[2019-06-15] MEDS: SODIUM CHLORIDE FLUSH SYRINGE 10 ML IV SCH ×2 (12:07→21:55)
[2019-06-15] MEDS: MORPHINE IV PRN ×3 (13:55→21:55)
[2019-06-15] MEDS: COUMADIN PO SCH (16:50)
[2019-06-15] MEDS ORDERED: COUMADIN PO SCH (17:00)
--- NOTE | 2019-06-15 18:07 | Progress Note ---
Assessment and Plan - Patient Problems (1) Atrial fibrillation Current Visit: Yes Status: Acute Plan to address problem: Patient presents since age fibrillation. We'll optimize rate control with beta john. Lopressor. Cardiology following. Schedule for stress test in a.m. Patient on Coumadin for aortic valve replacement. We'll continue Coumadin and follow PT/INR. (2) CAD (coronary artery disease) Current Visit: Yes Status: Acute Qualifiers: Associated angina: with stable angina Plan to address problem: Patient with chest pain coronaries. Follow up stress test in a.m. Cardiac enzymes unremarkable negative. (3) CHF (congestive heart failure) Current Visit: Yes Status: Acute Plan to address problem: Patient no evidence of heart failure will decompensated. Ejection fraction 50%. Stable. (4) CHF (congestive heart failure) Current Visit: No Status: Acute (5) HTN (hypertension), malignant Current Visit: No Status: Acute Plan to address problem: Patient blood pressure suboptimally controlled. Will increase Lopressor and titrate accordingly. (6) Nicotine dependence with withdrawal Current Visit: Yes Status: Acute Qualifiers: Nicotine product type: cigarettes Qualified Code(s): F17.213 - Nicotine dependence, cigarettes, with withdrawal Plan to address problem: Nicotine patch for control symptoms. (7) Hyperlipidemia Current Visit: No Status: Chronic Plan to address problem: Patient continues statin tracheal deal goal less than 70. History Interval history: Patient 54-year-old with a history of coronary artery disease status post CABG, tobacco abuse congestive heart failure history of LifeVest presents with three- day history of chest pain palpitations described as sharp for moderate tenderness or sugar shortness of breath and decreased exercise tolerance. This a.m. complains of persistent pain. Upon evaluation pain seemed to be more left flank pain. Patient had a cardiac catheterization which showed no significant coronary artery disease and nonischemic cardiomyopathy. Last known ejection fraction. Echocardiogram 50%. Hospitalist Physical - Constitutional Vitals: Temp Pulse Resp BP Pulse Ox 97.6 F 135 H 14 153/103 96 06/15/19 07:29 06/15/19 17:26 06/15/19 07:29 06/15/19 07:29 06/15/19 10:00 General appearance: Present: mild distress, obese - EENT Eyes: Present: PERRL, EOM intact ENT: hearing intact, clear oral mucosa, dentition normal - Neck Neck: Present: supple, normal ROM - Cardiovascular Rhythm: irregularly irregular - Extremities Extremities: no ischemia, pulses intact, pulses symmetrical, No edema, normal temperature, normal color Peripheral Pulses: within normal limits - Abdominal General gastrointestinal: soft, non-tender, non-distended, normal bowel sounds Localized gastrointestinal: mass: LUQ (left upper quadrant pain upon palpation.) - Integumentary Integumentary: Present: clear, warm, dry - Psychiatric Psychiatric: appropriate mood/affect, intact judgment & insight - Neurologic Neurologic: CNII-XII intact, moves all extremities Results - Labs CBC & Chem 7: 06/15/19 06:30 06/15/19 06:30 Labs: Laboratory Last Values WBC 6.1 K/mm3 (4.5-11.0) 06/15/19 06:30 RBC 4.57 M/mm3 (3.65-5.03) 06/15/19 06:30 Hgb 12.8 gm/dl (10.1-14.3) 06/15/19 06:30 Hct 39.9 % (30.3-42.9) 06/15/19 06:30 MCV 87 fl (79-97) 06/15/19 06:30 MCH 28 pg (28-32) 06/15/19 06:30 MCHC 32 % (30-34) 06/15/19 06:30 RDW 18.8 % (13.2-15.2) H 06/15/19 06:30 Plt Count 289 K/mm3 (140-440) 06/15/19 06:30 Lymph % (Auto) 20.2 % (13.4-35.0) 06/15/19 06:30 [place] % (Auto) 8.9 % (0.0-7.3) H 06/15/19 06:30 Eos % (Auto) 1.3 % (0.0-4.3) 06/15/19 06:30 Baso % (Auto) 0.3 % (0.0-1.8) 06/15/19 06:30 Lymph # 1.2 K/mm3 (1.2-5.4) 06/15/19 06:30 [place] # 0.5 K/mm3 (0.0-0.8) 06/15/19 06:30 Eos # 0.1 K/mm3 (0.0-0.4) 06/15/19 06:30 Baso # 0.0 K/mm3 (0.0-0.1) 06/15/19 06:30 Seg Neutrophils % 69.3 % (40.0-70.0) 06/15/19 06:30 Seg Neutrophils # 4.2 K/mm3 (1.8-7.7) 06/15/19 06:30 PT 22.2 Sec. (12.2-14.9) H 06/14/19 18:46 INR 1.99 (0.87-1.13) H 06/14/19 18:46 APTT 185.6 Sec. (24.2-36.6) H* 06/14/19 18:46 D-Dimer 251.76 ng/mlDDU (0-234) H 06/14/19 14:43 Sodium 144 mmol/L (137-145) 06/15/19 06:30 Potassium 3.8 mmol/L (3.6-5.0) 06/15/19 06:30 Chloride 105.8 mmol/L (98-107) 06/15/19 06:30 Carbon Dioxide 23 mmol/L (22-30) 06/15/19 06:30 Anion Gap 19 mmol/L 06/15/19 06:30 BUN 19 mg/dL (7-17) H 06/15/19 06:30 Creatinine 0.8 mg/dL (0.7-1.2) 06/15/19 06:30 Estimated GFR > 60 ml/min 06/15/19 06:30 BUN/Creatinine Ratio 24 % 06/15/19 06:30 Glucose 103 mg/dL (65-100) H 06/15/19 06:30 Calcium 9.3 mg/dL (8.4-10.2) 06/15/19 06:30 Magnesium 2.20 mg/dL (1.7-2.3) 06/15/19 06:30 Total Bilirubin 1.90 mg/dL (0.1-1.2) H 06/15/19 06:30 AST 28 units/L (5-40) 06/15/19 06:30 ALT 13 units/L (7-56) 06/15/19 06:30 Alkaline Phosphatase 82 units/L (35-129) 06/15/19 06:30 Troponin T < 0.010 ng/mL (0.00-0.029) 06/15/19 06:30 Troponin T < 0.010 ng/mL (0.00-0.029) 06/15/19 06:30 NT-Pro-B Natriuret Pep 2145 pg/mL (0-900) H 06/14/19 19:05 Total Protein 7.9 g/dL (6.3-8.2) 06/15/19 06:30 Albumin 3.8 g/dL (3.9-5) L 06/15/19 06:30 Albumin/Globulin Ratio 0.9 % 06/15/19 06:30 Triglycerides 111 mg/dL (2-149) 06/14/19 19:05 Cholesterol 133 mg/dL (50-199) 06/14/19 19:05 LDL Cholesterol Direct 82 mg/dL (50-130) 06/14/19 19:05 HDL Cholesterol 38 mg/dL (40-59) L 06/14/19 19:05 Cholesterol/HDL Ratio 3.50 % 06/14/19 19:05 TSH 0.462 mlU/mL (0.270-4.200) 06/14/19 19:09 Free T4 2.58 ng/dL (0.76-1.46) H 06/14/19 19:09 Urine Color Yellow (Yellow) 06/14/19 Unknown Urine Turbidity Clear (Clear) 06/14/19 Unknown Urine pH 7.0 (5.0-7.0) 06/14/19 Unknown Ur Specific [place] 1.013 (1.003-1.030) 06/14/19 Unknown Urine Protein <15 mg/dl mg/dL (Negative) 06/14/19 Unknown Urine Glucose (UA) Neg mg/dL (Negative) 06/14/19 Unknown Urine Ketones Neg mg/dL (Negative) 06/14/19 Unknown Urine Blood Neg (Negative) 06/14/19 Unknown Urine Nitrite Neg (Negative) 06/14/19 Unknown Urine Bilirubin Neg (Negative) 06/14/19 Unknown Urine Urobilinogen < 2.0 mg/dL (<2.0) 06/14/19 Unknown Ur Leukocyte Esterase Neg (Negative) 06/14/19 Unknown Urine WBC (Auto) 1.0 /HPF (0.0-6.0) 06/14/19 Unknown Urine RBC (Auto) 1.0 /HPF (0.0-6.0) 06/14/19 Unknown U Epithel Cells (Auto) 2.0 /HPF (0-13.0) 06/14/19 Unknown Urine Bacteria (Auto) 1+ /HPF (Negative) 06/14/19 Unknown Urine Opiates Screen Presumptive negative 06/14/19 15:03 Urine Methadone Screen Presumptive negative 06/14/19 15:03 Ur Barbiturates Screen Presumptive negative 06/14/19 15:03 Ur Phencyclidine Scrn Presumptive negative 06/14/19 15:03 Ur Amphetamines Screen Presumptive negative 06/14/19 15:03 U Benzodiazepines Scrn Presumptive negative 06/14/19 15:03 Urine Cocaine Screen Presumptive negative 06/14/19 15:03 U Marijuana (THC) Screen Presumptive negative 06/14/19 15:03 Drugs of Abuse Note Disclamer 06/14/19 15:03 Active Medications - Current Medications Current Medications: Generic Name Dose Route Start Last Admin Trade Name Freq PRN Reason Stop Dose Admin Acetaminophen 650 mg 06/14/19 19:05 Tylenol PO Q4H PRN Pain MILD(1-3)/Fever >100.5/VACA Albuterol 2.5 mg 06/14/19 19:05 Proventil IH Q4HRT PRN Shortness Of Breath Atorvastatin Calcium 40 mg 06/14/19 22:00 06/14/19 21:36 Lipitor PO 40 mg QHS HERACLIO Administration Bisacodyl 10 mg 06/14/19 18:54 06/15/19 16:51 Dulcolax HI 10 mg QDAY PRN Administration Constipation unrelieved by MOM Gabapentin 300 mg 06/14/19 20:00 06/15/19 13:26 Neurontin PO Not Given TID HERACLIO Methocarbamol 750 mg 06/14/19 18:54 Robaxin PO Q8H PRN Pain, Moderate (4-6) Metoprolol Tartrate 50 mg 06/14/19 19:30 06/15/19 17:39 Lopressor PO 50 mg Q8H HERACLIO Administration Morphine Sulfate 2 mg 06/15/19 13:37 06/15/19 17:39 Morphine IV 2 mg Q4H PRN Administration Pain, Moderate (4-6) Nicotine 21 mg 06/15/19 10:00 06/15/19 12:06 Habitrol TD Not Given QDAY HERACLIO Ondansetron HCl 4 mg 06/14/19 19:05 Zofran IV Q8H PRN Nausea And Vomiting Oxycodone HCl 15 mg 06/15/19 00:00 06/15/19 17:10 Roxicodone PO 15 mg Q6HR HERACLIO Administration Sodium Chloride 10 ml 06/14/19 22:00 06/15/19 12:07 Sodium Chloride Flush Syringe 10 Ml IV 10 ml BID HERACLIO Administration Sodium Chloride 10 ml 06/14/19 19:05 Sodium Chloride Flush Syringe 10 Ml IV PRN PRN LINE FLUSH Tramadol HCl 50 mg 06/14/19 18:54 06/14/19 21:36 Ultram PO 50 mg Q6HR PRN Administration PAIN Warfarin Sodium 4 mg 06/14/19 20:00 06/15/19 16:50 Coumadin PO 4 mg DAILY@1700 HERACLIO Administration Nutrition/Malnutrition Assess - Dietary Evaluation Nutrition/Malnutrition Findings: Nutrition Notes Start: 06/15/19 13:22 Freq: Status: Active Protocol: Document 06/15/19 13:22 CC (Rec: 06/15/19 13:37 CC [id number]) Co-Sign 06/15/19 13:22 LP Nutrition Notes Initial or Follow up Brief Note Current Diagnosis COPD,Hypertension,Heart Failure Other Pertinent Diagnosis Chrons disease Current Diet NPO after midnight diet Labs/Tests reviewed Pertinent Medications Coumadin Height 5 ft 1 in Weight 94.8 kg [place] Body Weight (kg) 47.72 BMI 39.4 Weight Status Morbidly Obese Subjective/Other Information Visited pt to provide education for Coumadin. Pt stated she has been on Coumadin and recieved education on it previously. Pt stated her appetite was good RN CVICU Burn Absent Trauma Absent Food Allergy No Minimum of two criteria No physical signs of malnutrition Is patient on ventilator? No Is Patient Ambulatory and/or Out of Bed Yes REE-([facility]-ambulatory/OOB) [ 1924.494 NUTR.MSJOOB] Calculation Used for Recommendations [facility] Additional Notes PRO: 76-95g/day (0.8-1.0g/kg) Fluid: 1ml/kcal Nutrition Intervention Change Diet Order: continue diet per MD Revisit per MD consult or patient Sign Off request:
[2019-06-15] MEDS: ULTRAM PO PRN (23:48)
[2019-06-16] MEDS: MORPHINE IV PRN ×5 (02:25→19:58)
[2019-06-16] MEDS: SODIUM CHLORIDE FLUSH SYRINGE 10 ML IV PRN ×2 (02:27→19:57)
[2019-06-16] MEDS: LOPRESSOR PO SCH ×3 (02:29→19:56)
[2019-06-16] MEDS ORDERED: APRESOLINE IV PRN (05:28)
[2019-06-16 05:32] LABS: Hematocrit 40.6 % (30.3-42.9); Hemoglobin 12.9 gm/dl (10.1-14.3)
[2019-06-16 05:41] LABS: INR 2.25 (0.87-1.13)
--- NOTE | 2019-06-16 08:53 | Progress Note ---
Assessment and Plan Atrial fibrillation, persistent Mitral valve replacement, mechanical (2013) on warfarin as an outpatient. well functioning mechanical mitral valve on echo, EF 45-50% 05/2017 Cardiac cath 2013 prior to her valve surgery revealed no significant coronary disease, and she did not require bypass surgery. Aortic valve replacement (2014) Tricuspid valve repair 2013 Trans-aortic septal myectomy 2013 Nonischemic cardiomyopathy an echocardiogram this admission reports a decreased LVEF 30-35%. Normal functioning mechanical mitral valve. Presence of subcutaneous AICD Obesity Continue oral anticoagulation for mechanical MV. Medical therapy for nonischemic cardiomyopathy including diuretics, afterload reduction agents and beta blockers. In addition to beta blockers we will add amiodarone for management of atrial fibrillation. If A. fib persists we will consider mechanical efforts to return patient to sinus rhythm. Subjective Date of service: 06/16/19 Interval history: Patient with shortness of breath on minimal exertion. She denies chest pain Rapid atrial fibrillation on telemetry. Objective Vital Signs Temp Pulse Resp BP Pulse Ox 06/16/19 05:54 137 H 172/116 06/16/19 04:10 98.2 F 135 H 20 172/116 87 06/16/19 03:30 136 H 06/16/19 02:29 136 H 06/15/19 23:36 97.9 F 133 H 20 159/100 97 06/15/19 19:31 98.4 F 134 H 20 157/109 92 06/15/19 19:24 134 H 06/15/19 17:26 135 H 06/15/19 16:43 98.1 F 18 157/108 06/15/19 11:30 135 H 06/15/19 10:00 96 - Physical Examination General: Other (Mild respiratory distress) Neck: Positive: trachea midline Cardiac: Positive: irregularly irregular Lungs: Positive: Decreased Breath Sounds, Other (crackles) Neuro: Positive: Grossly Intact Extremities: Present: +1 Edema - Labs and Meds Coagulation 06/16/19 Range/Units 03:56 PT 24.4 H (12.2-14.9) Sec. INR 2.25 H (0.87-1.13) CBC 06/16/19 Range/Units 03:56 Hgb 12.9 (10.1-14.3) gm/dl Hct 40.6 (30.3-42.9) % Plt Count 322 (140-440) K/mm3
[2019-06-16] MEDS: ZESTRIL PO SCH (09:13)
[2019-06-16] MEDS: HABITROL TD SCH (09:13)
[2019-06-16] MEDS: NEURONTIN PO SCH ×3 (09:13→21:38)
[2019-06-16] MEDS: LASIX IV SCH ×3 (09:14→17:42)
[2019-06-16] MEDS: SODIUM CHLORIDE FLUSH SYRINGE 10 ML IV SCH ×2 (09:14→21:39)
[2019-06-16] MEDS ORDERED: LASIX IV NR (09:30)
[2019-06-16] MEDS ORDERED: CORDARONE 300 MG in D5W 100 ML IV ONE (14:00)
--- NOTE | 2019-06-16 16:32 | Progress Note ---
Assessment and Plan - Patient Problems (1) Atrial fibrillation Current Visit: Yes Status: Acute Plan to address problem: Patient weight remains suboptimally controlled. Appears to develop congestive heart failure along with rapid ventricular rate. Cardiology following with her just beta john for rate control. (2) CAD (coronary artery disease) Current Visit: Yes Status: Acute Qualifiers: Associated angina: with stable angina Plan to address problem: Patient with chest pain coronaries. Follow up stress test in a.m. Cardiac enzymes unremarkable negative. (3) CHF (congestive heart failure) Current Visit: Yes Status: Acute Plan to address problem: Patient initial presentation was consistent with CHF. Was not acute. crackles on lungs. no jvd no lower extremity edema. (4) CHF (congestive heart failure) Current Visit: No Status: Acute Plan to address problem: Issue at present appears chronic upon presentation. Patient continues to be a regular does have some wheezing. We'll follow up chest requiring in a.m. to ensure the patient does not develop heart failure from uncontrolled heart rate. (5) HTN (hypertension), malignant Current Visit: No Status: Acute Plan to address problem: Patient blood pressure suboptimally controlled. Will increase Lopressor and titrate accordingly. Should blood pressure improved with the increase in Lopressor have a heart rate remains uncontrolled. (6) Nicotine dependence with withdrawal Current Visit: Yes Status: Acute Qualifiers: Nicotine product type: cigarettes Qualified Code(s): F17.213 - Nicotine dependence, cigarettes, with withdrawal Plan to address problem: Nicotine patch for control symptoms. (7) Hyperlipidemia Current Visit: No Status: Chronic Plan to address problem: Patient continues statin tracheal deal goal less than 70. (8) Acute kidney injury Current Visit: Yes Status: Acute Plan to address problem: Secondary to vasomotor nephropathy corrected. History Interval history: At present patient complains of persistent pain associated with some shortness of breath. Hospital course complicated by rapid ventricular rate. Hospitalist Physical - Constitutional Vitals: Temp Pulse Resp BP Pulse Ox 98.2 F 135 H 20 136/102 95 06/16/19 04:10 06/16/19 11:38 06/16/19 04:10 06/16/19 11:38 06/16/19 09:58 General appearance: Present: mild distress, obese - EENT Eyes: Present: PERRL, EOM intact ENT: hearing intact, clear oral mucosa, dentition normal - Neck Neck: Present: supple, normal ROM - Respiratory Respiratory effort: normal - Cardiovascular Rhythm: regular - Extremities Extremities: no ischemia, pulses intact, pulses symmetrical, No edema, normal temperature, normal color Peripheral Pulses: within normal limits - Abdominal General gastrointestinal: soft, non-tender, non-distended, normal bowel sounds, no hypoactive bowel sounds - Integumentary Integumentary: Present: clear, warm, dry - Psychiatric Psychiatric: appropriate mood/affect, other (adjustment minimal cognitive impairment.) Results - Labs CBC & Chem 7: 06/16/19 03:56 06/15/19 06:30 Labs: Laboratory Last Values WBC 6.1 K/mm3 (4.5-11.0) 06/15/19 06:30 RBC 4.57 M/mm3 (3.65-5.03) 06/15/19 06:30 Hgb 12.9 gm/dl (10.1-14.3) 06/16/19 03:56 Hct 40.6 % (30.3-42.9) 06/16/19 03:56 MCV 87 fl (79-97) 06/15/19 06:30 MCH 28 pg (28-32) 06/15/19 06:30 MCHC 32 % (30-34) 06/15/19 06:30 RDW 18.8 % (13.2-15.2) H 06/15/19 06:30 Plt Count 322 K/mm3 (140-440) 06/16/19 03:56 Lymph % (Auto) 20.2 % (13.4-35.0) 06/15/19 06:30 [place] % (Auto) 8.9 % (0.0-7.3) H 06/15/19 06:30 Eos % (Auto) 1.3 % (0.0-4.3) 06/15/19 06:30 Baso % (Auto) 0.3 % (0.0-1.8) 06/15/19 06:30 Lymph # 1.2 K/mm3 (1.2-5.4) 06/15/19 06:30 [place] # 0.5 K/mm3 (0.0-0.8) 06/15/19 06:30 Eos # 0.1 K/mm3 (0.0-0.4) 06/15/19 06:30 Baso # 0.0 K/mm3 (0.0-0.1) 06/15/19 06:30 Seg Neutrophils % 69.3 % (40.0-70.0) 06/15/19 06:30 Seg Neutrophils # 4.2 K/mm3 (1.8-7.7) 06/15/19 06:30 PT 24.4 Sec. (12.2-14.9) H 06/16/19 03:56 INR 2.25 (0.87-1.13) H 06/16/19 03:56 APTT 185.6 Sec. (24.2-36.6) H* 06/14/19 18:46 D-Dimer 251.76 ng/mlDDU (0-234) H 06/14/19 14:43 Sodium 144 mmol/L (137-145) 06/15/19 06:30 Potassium 3.8 mmol/L (3.6-5.0) 06/15/19 06:30 Chloride 105.8 mmol/L (98-107) 06/15/19 06:30 Carbon Dioxide 23 mmol/L (22-30) 06/15/19 06:30 Anion Gap 19 mmol/L 06/15/19 06:30 BUN 19 mg/dL (7-17) H 06/15/19 06:30 Creatinine 0.8 mg/dL (0.7-1.2) 06/15/19 06:30 Estimated GFR > 60 ml/min 06/15/19 06:30 BUN/Creatinine Ratio 24 % 06/15/19 06:30 Glucose 103 mg/dL (65-100) H 06/15/19 06:30 Calcium 9.3 mg/dL (8.4-10.2) 06/15/19 06:30 Magnesium 2.20 mg/dL (1.7-2.3) 06/15/19 06:30 Total Bilirubin 1.90 mg/dL (0.1-1.2) H 06/15/19 06:30 AST 28 units/L (5-40) 06/15/19 06:30 ALT 13 units/L (7-56) 06/15/19 06:30 Alkaline Phosphatase 82 units/L (35-129) 06/15/19 06:30 Troponin T < 0.010 ng/mL (0.00-0.029) 06/15/19 06:30 Troponin T < 0.010 ng/mL (0.00-0.029) 06/15/19 06:30 NT-Pro-B Natriuret Pep 2145 pg/mL (0-900) H 06/14/19 19:05 Total Protein 7.9 g/dL (6.3-8.2) 06/15/19 06:30 Albumin 3.8 g/dL (3.9-5) L 06/15/19 06:30 Albumin/Globulin Ratio 0.9 % 06/15/19 06:30 Triglycerides 111 mg/dL (2-149) 06/14/19 19:05 Cholesterol 133 mg/dL (50-199) 06/14/19 19:05 LDL Cholesterol Direct 82 mg/dL (50-130) 06/14/19 19:05 HDL Cholesterol 38 mg/dL (40-59) L 06/14/19 19:05 Cholesterol/HDL Ratio 3.50 % 06/14/19 19:05 TSH 0.462 mlU/mL (0.270-4.200) 06/14/19 19:09 Free T4 2.58 ng/dL (0.76-1.46) H 06/14/19 19:09 Urine Color Yellow (Yellow) 06/14/19 Unknown Urine Turbidity Clear (Clear) 06/14/19 Unknown Urine pH 7.0 (5.0-7.0) 06/14/19 Unknown Ur Specific [place] 1.013 (1.003-1.030) 06/14/19 Unknown Urine Protein <15 mg/dl mg/dL (Negative) 06/14/19 Unknown Urine Glucose (UA) Neg mg/dL (Negative) 06/14/19 Unknown Urine Ketones Neg mg/dL (Negative) 06/14/19 Unknown Urine Blood Neg (Negative) 06/14/19 Unknown Urine Nitrite Neg (Negative) 06/14/19 Unknown Urine Bilirubin Neg (Negative) 06/14/19 Unknown Urine Urobilinogen < 2.0 mg/dL (<2.0) 06/14/19 Unknown Ur Leukocyte Esterase Neg (Negative) 06/14/19 Unknown Urine WBC (Auto) 1.0 /HPF (0.0-6.0) 06/14/19 Unknown Urine RBC (Auto) 1.0 /HPF (0.0-6.0) 06/14/19 Unknown U Epithel Cells (Auto) 2.0 /HPF (0-13.0) 06/14/19 Unknown Urine Bacteria (Auto) 1+ /HPF (Negative) 06/14/19 Unknown Urine Opiates Screen Presumptive negative 06/14/19 15:03 Urine Methadone Screen Presumptive negative 06/14/19 15:03 Ur Barbiturates Screen Presumptive negative 06/14/19 15:03 Ur Phencyclidine Scrn Presumptive negative 06/14/19 15:03 Ur Amphetamines Screen Presumptive negative 06/14/19 15:03 U Benzodiazepines Scrn Presumptive negative 06/14/19 15:03 Urine Cocaine Screen Presumptive negative 06/14/19 15:03 U Marijuana (THC) Screen Presumptive negative 06/14/19 15:03 Drugs of Abuse Note Disclamer 06/14/19 15:03 Active Medications - Current Medications Current Medications: Generic Name Dose Route Start Last Admin Trade Name Freq PRN Reason Stop Dose Admin Acetaminophen 650 mg 06/14/19 19:05 Tylenol PO Q4H PRN Pain MILD(1-3)/Fever >100.5/VACA Albuterol 2.5 mg 06/14/19 19:05 Proventil IH Q4HRT PRN Shortness Of Breath Amiodarone HCl 200 mg 06/16/19 22:00 Cordarone PO BID [facility] Atorvastatin Calcium 40 mg 06/14/19 22:00 06/15/19 21:55 Lipitor PO 40 mg QHS HERACLIO Administration Bisacodyl 10 mg 06/14/19 18:54 06/15/19 16:51 Dulcolax [place] 10 mg QDAY PRN Administration Constipation unrelieved by MOM Furosemide 40 mg 06/16/19 18:00 06/16/19 09:14 Lasix IV 40 mg 0600,1800 HERACLIO Administration Gabapentin 300 mg 06/14/19 20:00 06/16/19 13:14 Neurontin PO Not Given TID HERACLIO Hydralazine HCl 10 mg 06/16/19 05:28 06/16/19 05:54 Apresoline IV 10 mg Q6H PRN Administration BP>160 Lisinopril 10 mg 06/16/19 10:00 06/16/19 09:13 Zestril PO 10 mg QDAY HERACLIO Administration Methocarbamol 750 mg 06/14/19 18:54 Robaxin PO Q8H PRN Pain, Moderate (4-6) Metoprolol Tartrate 50 mg 06/14/19 19:30 06/16/19 11:38 Lopressor PO 50 mg Q8H HERACLIO Administration Morphine Sulfate 4 mg 06/16/19 10:00 06/16/19 15:45 Morphine IV 4 mg Q4H PRN Administration Pain , Severe (7-10) Nicotine 21 mg 06/15/19 10:00 06/16/19 09:13 Habitrol TD 21 mg QDAY HERACLIO Administration Ondansetron HCl 4 mg 06/14/19 19:05 Zofran IV Q8H PRN Nausea And Vomiting Sodium Chloride 10 ml 06/14/19 22:00 06/16/19 09:14 Sodium Chloride Flush Syringe 10 Ml IV 10 ml BID HERACLIO Administration Sodium Chloride 10 ml 06/14/19 19:05 06/16/19 02:27 Sodium Chloride Flush Syringe 10 Ml IV 10 ml PRN PRN Administration LINE FLUSH Tramadol HCl 50 mg 06/14/19 18:54 06/15/19 23:48 Ultram PO 50 mg Q6HR PRN Administration PAIN Warfarin Sodium 4 mg 06/14/19 20:00 06/15/19 16:50 Coumadin PO 4 mg DAILY@1700 [facility] Administration Nutrition/Malnutrition Assess - Dietary Evaluation Nutrition/Malnutrition Findings: Nutrition Notes Start: 06/15/19 13:22 Freq: Status: Active Protocol: Document 06/15/19 13:22 CC (Rec: 06/15/19 13:37 CC [id number]) Co-Sign 06/15/19 13:22 LP Nutrition Notes Initial or Follow up Brief Note Current Diagnosis COPD,Hypertension,Heart Failure Other Pertinent Diagnosis Chrons disease Current Diet NPO after midnight diet Labs/Tests reviewed Pertinent Medications Coumadin Height 5 ft 1 in Weight 94.8 kg [place] Body Weight (kg) 47.72 BMI 39.4 Weight Status Morbidly Obese Subjective/Other Information Visited pt to provide education for Coumadin. Pt stated she has been on Coumadin and recieved education on it previously. Pt stated her appetite was good [employer] HAND Burn Absent Trauma Absent Food Allergy No Minimum of two criteria No physical signs of malnutrition Is patient on ventilator? No Is Patient Ambulatory and/or Out of Bed Yes REE-([facility]-ambulatory/OOB) [ 1924.494 NUTR.MSJOOB] Calculation Used for Recommendations [facility] Additional Notes PRO: 76-95g/day (0.8-1.0g/kg) Fluid: 1ml/kcal Nutrition Intervention Change Diet Order: continue diet per MD Revisit per MD consult or patient Sign Off request:
[2019-06-16] MEDS: COUMADIN PO SCH (17:38)
[2019-06-16] MEDS: CORDARONE PO SCH (21:39)
[2019-06-17] MEDS: MORPHINE IV PRN ×6 (00:19→22:58)
[2019-06-17] MEDS: SODIUM CHLORIDE FLUSH SYRINGE 10 ML IV PRN (00:22)
[2019-06-17] MEDS: LOPRESSOR PO SCH ×3 (03:55→20:07)
[2019-06-17 05:11] LABS: INR 2.23 (0.87-1.13)
[2019-06-17] MEDS: LASIX IV SCH ×2 (05:57→19:13)
--- NOTE | 2019-06-17 08:56 | Progress Note ---
Assessment and Plan Symptomatic Atrial fibrillation, persistent Mitral valve replacement, mechanical (2013) on warfarin as an outpatient. well functioning mechanical mitral valve on echo, EF 45-50% 05/2017 Cardiac cath 2013 prior to her valve surgery revealed no significant coronary disease, and she did not require bypass surgery. Aortic valve replacement (2014) Tricuspid valve repair 2013 Trans-aortic septal myectomy 2013 Nonischemic cardiomyopathy an echocardiogram this admission reports a decreased LVEF 30-35%. Normal functioning mechanical mitral valve. Presence of subcutaneous AICD Obesity Continue oral anticoagulation for mechanical MV. Continue medical therapy for nonischemic cardiomyopathy and atrial fibrillation. For a PAOLO guided cardioversion today. Subjective Date of service: 06/17/19 Objective Vital Signs Temp Pulse Pulse Resp BP BP Pulse Ox 06/17/19 08:29 95 06/17/19 08:10 20 06/17/19 07:40 97.6 F 129 H 18 122/90 93 06/17/19 04:16 98.0 F 104 H 18 128/83 94 06/16/19 23:29 98.4 F 131 H 18 139/66 89 06/16/19 22:00 93 06/16/19 20:36 94 H 06/16/19 19:56 125 H 102/61 06/16/19 19:40 98.1 F 128 H 18 102/61 92 06/16/19 17:22 97.4 F L 60 20 131/65 93 06/16/19 12:27 97.4 F L 131 H 20 148/101 97 06/16/19 11:38 135 H 136/102 06/16/19 11:32 135 H 136/102 06/16/19 11:00 134 H 06/16/19 10:00 94 06/16/19 09:58 115 H 95 06/16/19 09:13 115 H 133/109 - Physical Examination General: Other (Mild respiratory distress) Neck: Positive: trachea midline Neuro: Positive: Grossly Intact Extremities: Present: +1 Edema - Labs and Meds Coagulation 06/17/19 Range/Units 04:11 PT 24.3 H (12.2-14.9) Sec. INR 2.23 H (0.87-1.13)
[2019-06-17] MEDS ORDERED: HURRICAINE ONE 20% TOPICAL SPRAY MM NR (10:00)
[2019-06-17] MEDS: ZESTRIL PO SCH (10:22)
[2019-06-17] MEDS: NEURONTIN PO SCH ×3 (10:23→20:07)
[2019-06-17] MEDS: CORDARONE PO SCH (10:24)
[2019-06-17] MEDS: HABITROL TD SCH (10:25)
[2019-06-17] MEDS: SODIUM CHLORIDE FLUSH SYRINGE 10 ML IV SCH ×2 (10:25→22:15)
[2019-06-17] MEDS ORDERED: DIPRIVAN 10 MG/ML IV ONE (11:09)
--- NOTE | 2019-06-17 11:45 | Progress Note ---
Assessment and Plan Assessment and plan: Persistent atrial fibrillation. Continue medical therapy for nonischemic cardiomyopathy and atrial fibrillation. PAOLO cardioversion today. Mitral valve replacement, mechanical. Continue warfarin as an outpatient. Cardiac cath 2013 prior to her valve surgery revealed no significant coronary disease, and she did not require bypass surgery per cardiology. Aortic valve replacement/Tricuspid valve repair 2013/Trans-aortic septal myectomy 2013 Nonischemic cardiomyopathy. Echocardiogram reported decreased LVEF 30-35%. Normal functioning mechanical mitral valve. AICD. Obesity. Patient will be counseled on diet modifications. History Interval history: No new issues overnight. Hospitalist Physical - Constitutional Vitals: Temp Pulse Resp BP Pulse Ox 97.9 F 132 H 18 128/85 93 06/17/19 11:18 06/17/19 11:18 06/17/19 11:18 06/17/19 11:18 06/17/19 11:18 General appearance: Present: no acute distress, obese - EENT Eyes: Present: PERRL, EOM intact ENT: hearing intact, clear oral mucosa, dentition normal - Neck Neck: Present: supple, normal ROM - Respiratory Respiratory effort: normal Respiratory: bilateral: CTA - Cardiovascular Rhythm: regular Heart Sounds: Present: S1 & S2. Absent: gallop, rub - Extremities Extremities: no ischemia, No edema, Full ROM - Abdominal General gastrointestinal: soft, non-tender, non-distended, normal bowel sounds - Integumentary Integumentary: Present: clear, warm, dry - Neurologic Neurologic: CNII-XII intact, moves all extremities Results - Labs CBC & Chem 7: 06/16/19 03:56 06/15/19 06:30 Labs: Laboratory Last Values WBC 6.1 K/mm3 (4.5-11.0) 06/15/19 06:30 RBC 4.57 M/mm3 (3.65-5.03) 06/15/19 06:30 Hgb 12.9 gm/dl (10.1-14.3) 06/16/19 03:56 Hct 40.6 % (30.3-42.9) 06/16/19 03:56 MCV 87 fl (79-97) 06/15/19 06:30 MCH 28 pg (28-32) 06/15/19 06:30 MCHC 32 % (30-34) 06/15/19 06:30 RDW 18.8 % (13.2-15.2) H 06/15/19 06:30 Plt Count 322 K/mm3 (140-440) 06/16/19 03:56 Lymph % (Auto) 20.2 % (13.4-35.0) 06/15/19 06:30 Glenn % (Auto) 8.9 % (0.0-7.3) H 06/15/19 06:30 Eos % (Auto) 1.3 % (0.0-4.3) 06/15/19 06:30 Baso % (Auto) 0.3 % (0.0-1.8) 06/15/19 06:30 Lymph # 1.2 K/mm3 (1.2-5.4) 06/15/19 06:30 Glenn # 0.5 K/mm3 (0.0-0.8) 06/15/19 06:30 Eos # 0.1 K/mm3 (0.0-0.4) 06/15/19 06:30 Baso # 0.0 K/mm3 (0.0-0.1) 06/15/19 06:30 Seg Neutrophils % 69.3 % (40.0-70.0) 06/15/19 06:30 Seg Neutrophils # 4.2 K/mm3 (1.8-7.7) 06/15/19 06:30 PT 24.3 Sec. (12.2-14.9) H 06/17/19 04:11 INR 2.23 (0.87-1.13) H 06/17/19 04:11 APTT 185.6 Sec. (24.2-36.6) H* 06/14/19 18:46 D-Dimer 251.76 ng/mlDDU (0-234) H 06/14/19 14:43 Sodium 144 mmol/L (137-145) 06/15/19 06:30 Potassium 3.8 mmol/L (3.6-5.0) 06/15/19 06:30 Chloride 105.8 mmol/L (98-107) 06/15/19 06:30 Carbon Dioxide 23 mmol/L (22-30) 06/15/19 06:30 Anion Gap 19 mmol/L 06/15/19 06:30 BUN 19 mg/dL (7-17) H 06/15/19 06:30 Creatinine 0.8 mg/dL (0.7-1.2) 06/15/19 06:30 Estimated GFR > 60 ml/min 06/15/19 06:30 BUN/Creatinine Ratio 24 % 06/15/19 06:30 Glucose 103 mg/dL (65-100) H 06/15/19 06:30 Calcium 9.3 mg/dL (8.4-10.2) 06/15/19 06:30 Magnesium 2.20 mg/dL (1.7-2.3) 06/15/19 06:30 Total Bilirubin 1.90 mg/dL (0.1-1.2) H 06/15/19 06:30 AST 28 units/L (5-40) 06/15/19 06:30 ALT 13 units/L (7-56) 06/15/19 06:30 Alkaline Phosphatase 82 units/L (35-129) 06/15/19 06:30 Troponin T < 0.010 ng/mL (0.00-0.029) 06/15/19 06:30 Troponin T < 0.010 ng/mL (0.00-0.029) 06/15/19 06:30 NT-Pro-B Natriuret Pep 2145 pg/mL (0-900) H 06/14/19 19:05 Total Protein 7.9 g/dL (6.3-8.2) 06/15/19 06:30 Albumin 3.8 g/dL (3.9-5) L 06/15/19 06:30 Albumin/Globulin Ratio 0.9 % 06/15/19 06:30 Triglycerides 111 mg/dL (2-149) 06/14/19 19:05 Cholesterol 133 mg/dL (50-199) 06/14/19 19:05 LDL Cholesterol Direct 82 mg/dL (50-130) 06/14/19 19:05 HDL Cholesterol 38 mg/dL (40-59) L 06/14/19 19:05 Cholesterol/HDL Ratio 3.50 % 06/14/19 19:05 TSH 0.462 mlU/mL (0.270-4.200) 06/14/19 19:09 Free T4 2.58 ng/dL (0.76-1.46) H 06/14/19 19:09 Urine Color Yellow (Yellow) 06/14/19 Unknown Urine Turbidity Clear (Clear) 06/14/19 Unknown Urine pH 7.0 (5.0-7.0) 06/14/19 Unknown Ur Specific [place] 1.013 (1.003-1.030) 06/14/19 Unknown Urine Protein <15 mg/dl mg/dL (Negative) 06/14/19 Unknown Urine Glucose (UA) Neg mg/dL (Negative) 06/14/19 Unknown Urine Ketones Neg mg/dL (Negative) 06/14/19 Unknown Urine Blood Neg (Negative) 06/14/19 Unknown Urine Nitrite Neg (Negative) 06/14/19 Unknown Urine Bilirubin Neg (Negative) 06/14/19 Unknown Urine Urobilinogen < 2.0 mg/dL (<2.0) 06/14/19 Unknown Ur Leukocyte Esterase Neg (Negative) 06/14/19 Unknown Urine WBC (Auto) 1.0 /HPF (0.0-6.0) 06/14/19 Unknown Urine RBC (Auto) 1.0 /HPF (0.0-6.0) 06/14/19 Unknown U Epithel Cells (Auto) 2.0 /HPF (0-13.0) 06/14/19 Unknown Urine Bacteria (Auto) 1+ /HPF (Negative) 06/14/19 Unknown Urine Opiates Screen Presumptive negative 06/14/19 15:03 Urine Methadone Screen Presumptive negative 06/14/19 15:03 Ur Barbiturates Screen Presumptive negative 06/14/19 15:03 Ur Phencyclidine Scrn Presumptive negative 06/14/19 15:03 Ur Amphetamines Screen Presumptive negative 06/14/19 15:03 U Benzodiazepines Scrn Presumptive negative 06/14/19 15:03 Urine Cocaine Screen Presumptive negative 06/14/19 15:03 U Marijuana (THC) Screen Presumptive negative 06/14/19 15:03 Drugs of Abuse Note Disclamer 06/14/19 15:03 Active Medications - Current Medications Current Medications: Generic Name Dose Route Start Last Admin Trade Name Freq PRN Reason Stop Dose Admin Acetaminophen 650 mg 06/14/19 19:05 Tylenol PO Q4H PRN Pain MILD(1-3)/Fever >100.5/VACA Albuterol 2.5 mg 06/14/19 19:05 Proventil IH Q4HRT PRN Shortness Of Breath Amiodarone HCl 200 mg 06/16/19 22:00 06/17/19 10:24 Cordarone PO 200 mg BID HERACLIO Administration Atorvastatin Calcium 40 mg 06/14/19 22:00 06/16/19 21:38 Lipitor PO 40 mg QHS HERACLIO Administration Benzocaine 3 spray 06/17/19 10:00 Hurricaine One 20% Topical [place] MM 06/17/19 18:00 PREOP NR Bisacodyl 10 mg 06/14/19 18:54 06/15/19 16:51 Dulcolax ME 10 mg QDAY PRN Administration Constipation unrelieved by MOM Furosemide 40 mg 06/16/19 18:00 06/17/19 05:57 Lasix IV 40 mg 0600,1800 HERACLIO Administration Gabapentin 300 mg 06/14/19 20:00 06/17/19 10:23 Neurontin PO 300 mg TID HERACLIO Administration Hydralazine HCl 10 mg 06/16/19 05:28 06/16/19 05:54 Apresoline IV 10 mg Q6H PRN Administration BP>160 Lisinopril 10 mg 06/16/19 10:00 06/17/19 10:22 Zestril PO 10 mg QDAY [facility] Administration Methocarbamol 750 mg 06/14/19 18:54 Robaxin PO Q8H PRN Pain, Moderate (4-6) Metoprolol Tartrate 50 mg 06/14/19 19:30 06/17/19 10:29 Lopressor PO 50 mg Q8H HERACLIO Administration Morphine Sulfate 4 mg 06/16/19 10:00 06/17/19 08:10 Morphine IV 4 mg Q4H PRN Administration Pain , Severe (7-10) Nicotine 21 mg 06/15/19 10:00 06/17/19 10:25 Habitrol TD Not Given QDAY HERACLIO Ondansetron HCl 4 mg 06/14/19 19:05 Zofran IV Q8H PRN Nausea And Vomiting Sodium Chloride 10 ml 06/14/19 22:00 06/17/19 10:25 Sodium Chloride Flush Syringe 10 Ml IV 10 ml BID HERACLIO Administration Sodium Chloride 10 ml 06/14/19 19:05 06/17/19 00:22 Sodium Chloride Flush Syringe 10 Ml IV 10 ml PRN PRN Administration LINE FLUSH Warfarin Sodium 4 mg 06/14/19 20:00 06/16/19 17:38 Coumadin PO 4 mg DAILY@1700 HERACLIO Administration Nutrition/Malnutrition Assess - Dietary Evaluation Nutrition/Malnutrition Findings: Nutrition Notes Start: 06/15/19 13:22 Freq: Status: Active Protocol: Document 06/15/19 13:22 CC (Rec: 06/15/19 13:37 CC [id number]) Co-Sign 06/15/19 13:22 LP Nutrition Notes Initial or Follow up Brief Note Current Diagnosis COPD,Hypertension,Heart Failure Other Pertinent Diagnosis Chrons disease Current Diet NPO after midnight diet Labs/Tests reviewed Pertinent Medications Coumadin Height 5 ft 1 in Weight 94.8 kg [place] Body Weight (kg) 47.72 BMI 39.4 Weight Status Morbidly Obese Subjective/Other Information Visited pt to provide education for Coumadin. Pt stated she has been on Coumadin and recieved education on it previously. Pt stated her appetite was good [employer] Burn Absent Trauma Absent Food Allergy No Minimum of two criteria No physical signs of malnutrition Is patient on ventilator? No Is Patient Ambulatory and/or Out of Bed Yes REE-([place]-St. Jeor-ambulatory/OOB) [ 1924.494 [id number]] Calculation Used for Recommendations [place]-St Jeor Additional Notes PRO: 76-95g/day (0.8-1.0g/kg) Fluid: 1ml/kcal Nutrition Intervention Change Diet Order: continue diet per MD Revisit per MD consult or patient Sign Off request:
[2019-06-17] MEDS ORDERED: HURRICAINE ONE 20% TOPICAL SPRAY MM (12:34)
[2019-06-17] MEDS ORDERED: NACL 0.9% 500 ML 500 ML ONE (12:35)
--- NOTE | 2019-06-17 13:22 | Anesthesia Day of Surgery ---
Anesthesia Day of Surgery - Day of Surgery Patient Examined: Yes Patient H&P Reviewed: Yes Patient is NPO: Yes
--- NOTE | 2019-06-17 13:22 | Anesthesia Consultation ---
Anesthesia Consult and Med Hx Date of service: 06/17/19 - Airway Anesthetic Teeth Evaluation: Edentulous ROM Head & Neck: Adequate Mental/Hyoid Distance: Adequate Mallampati Class: Class III Intubation Access Assessment: Possibly Difficult - Pulmonary Exam CTA: Yes - Cardiac Exam Cardiac Exam: No Murmur (irregular rhythm; artificial valve click) - Pre-Operative Health Status ASA Pre-Surgery Classification: ASA3 Proposed Anesthetic Plan: MAC - Pulmonary Hx Smoking: Yes COPD: Yes - Cardiovascular System Hx Hypertension: Yes Hx Coronary Artery Disease: No (non-ischemic cardiomyopathy EF 30-35%) Hx Heart Attack/AMI: No Hx Percutaneous Transluminal Coronary Angioplasty (PTCA): No Hx Cardia Arrhythmia: Yes (a-fib) Hx Pacemaker: Yes Hx Internal Defibrillator: Yes (s/p AVR, MVR, and TV repair) Hx Valvular Heart Disease: No Hx Heart Murmur: No - Central Nervous System 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
--- NOTE | 2019-06-17 13:37 | Progress Note ---
Assessment and Plan Symptomatic atrial flutter MAGGI thrombus on PAOLO therefore cardioversion was deferred Mitral valve replacement, mechanical (2013) on warfarin as an outpatient. well functioning mechanical mitral valve on echo, EF 45-50% 05/2017 Cardiac cath 2013 prior to her valve surgery revealed no significant coronary disease, and she did not require bypass surgery. Aortic valve replacement (2014) The aortic valve could not be well visualized by PAOLO Tricuspid valve repair 2013 Trans-aortic septal myectomy 2013 Nonischemic cardiomyopathy an echocardiogram this admission reports a decreased LVEF 30-35%. Normal functioning mechanical mitral valve. Presence of subcutaneous AICD Obesity Recommendations: Continue oral anticoagulation with a target INR 3 Start IV digoxin loading for rate control and discontinue po amiodarone Continue medical therapy for nonischemic cardiomyopathy Subjective Date of service: 06/17/19 Principal diagnosis: Atrial flutter Interval history: PAOLO performed revealing a MAGGI thrombus therefore cardioversion was deferred Objective Vital Signs Temp Pulse Pulse Resp Resp BP BP 06/17/19 13:24 128 H 20 131/76 06/17/19 13:21 128 H 20 125/80 06/17/19 13:19 128 H 20 114/78 06/17/19 13:15 128 H 16 111/74 06/17/19 13:12 129 H 18 124/73 06/17/19 13:10 129 H 20 122/76 06/17/19 13:07 130 H 20 161/96 06/17/19 13:04 131 H 20 146/84 06/17/19 11:18 97.9 F 132 H 18 128/85 06/17/19 08:29 06/17/19 08:10 20 06/17/19 07:40 97.6 F 129 H 18 122/90 06/17/19 04:16 98.0 F 104 H 18 128/83 06/16/19 23:29 98.4 F 131 H 18 139/66 06/16/19 22:00 06/16/19 20:36 94 H 06/16/19 19:56 125 H 102/61 06/16/19 19:40 98.1 F 128 H 18 102/61 06/16/19 17:22 97.4 F L 60 20 131/65 Pulse Ox Pulse Ox 06/17/19 13:24 96 06/17/19 13:21 95 06/17/19 13:19 95 06/17/19 13:15 94 06/17/19 13:12 93 06/17/19 13:10 94 06/17/19 13:07 97 06/17/19 13:04 100 06/17/19 11:18 93 06/17/19 08:29 95 06/17/19 08:10 06/17/19 07:40 93 06/17/19 04:16 94 06/16/19 23:29 89 06/16/19 22:00 93 06/16/19 20:36 06/16/19 19:56 06/16/19 19:40 92 06/16/19 17:22 93 - Physical Examination General: Other (Mild respiratory distress) Neck: Positive: trachea midline Cardiac: Positive: Irregularly Regular Lungs: Positive: Normal Exam Neuro: Positive: Grossly Intact Extremities: Present: +1 Edema - Labs and Meds Coagulation 06/17/19 Range/Units 04:11 PT 24.3 H (12.2-14.9) Sec. INR 2.23 H (0.87-1.13)
--- NOTE | 2019-06-17 14:18 | Post Anesthesia Evaluation ---
- Post Anesthesia Evaluation Patient Participated: Yes Airway Patent: Yes Stable Respiratory Function: Yes Nausea/Vomiting: No Temp > 96.8F: Yes Pain Manageable: Yes Adequeate Hydration: Yes Anesthesia Complications: No
[2019-06-17] MEDS: LANOXIN IV SCH ×2 (15:02→17:39)
[2019-06-17] MEDS: COUMADIN PO SCH (17:41)
[2019-06-18] MEDS: LANOXIN IV SCH ×2 (00:46→06:34)
[2019-06-18] MEDS: MORPHINE IV PRN ×3 (03:13→11:27)
[2019-06-18] MEDS: LOPRESSOR PO SCH ×2 (03:15→11:25)
[2019-06-18] MEDS: LASIX IV SCH (06:32)
[2019-06-18 07:29] VITALS: BP 133/83
[2019-06-18] MEDS: NEURONTIN PO SCH (08:06)
[2019-06-18] MEDS: ZESTRIL PO SCH (09:19)
[2019-06-18] MEDS: SODIUM CHLORIDE FLUSH SYRINGE 10 ML IV SCH (09:22)
[2019-06-18] MEDS: HABITROL TD SCH (09:22)
--- NOTE | 2019-06-18 09:42 | Progress Note ---
Assessment and Plan 1. Atrial fibrillation flutter 2. Left atrial thrombus in the left atrial appendage 3. Presence of prosthetic mitral and aortic valves 4. Dilated nonischemic cardiomyopathy left ventricular ejection fraction 30-35% 5. Presence of subcutaneous ICD 6. Obesity Plan. Patient is stable and rhythm strips today show atrial fibrillation/flutter well controlled on medication. Will continue rate control management to get adequate anticoagulation patient can be discharged home follow-up in the office Subjective Date of service: 06/18/19 Principal diagnosis: Atrial flutter Interval history: No cardiac symptoms Objective Vital Signs Temp Pulse Pulse Pulse Pulse Resp Resp 06/18/19 09:19 78 06/18/19 08:58 06/18/19 08:36 18 06/18/19 07:27 98.1 F 59 L 20 06/18/19 07:05 18 06/18/19 06:35 20 06/18/19 06:34 68 06/18/19 06:32 98.0 F 67 20 06/18/19 05:47 98.2 F 97 H 20 06/18/19 03:43 18 06/18/19 03:15 70 06/18/19 03:13 98.5 F 70 20 06/18/19 00:46 133 H 06/17/19 23:28 18 06/17/19 23:08 98.3 F 133 H 20 06/17/19 22:58 20 06/17/19 20:53 110 H 06/17/19 20:12 18 06/17/19 20:10 110 H 20 06/17/19 20:07 104 H 06/17/19 19:37 97.3 F L 104 H 18 06/17/19 19:28 18 06/17/19 18:58 18 06/17/19 17:10 98.2 F 133 H 20 06/17/19 15:03 20 06/17/19 15:01 130 H 06/17/19 13:39 127 H 06/17/19 13:24 128 H 06/17/19 13:21 128 H 06/17/19 13:19 128 H 06/17/19 13:15 128 H 06/17/19 13:12 129 H 06/17/19 13:10 129 H 06/17/19 13:07 130 H 06/17/19 13:04 131 H 06/17/19 11:18 97.9 F 132 H 18 06/17/19 10:00 101 H Resp BP BP Pulse Ox Pulse Ox 06/18/19 09:19 133/83 06/18/19 08:58 94 06/18/19 08:36 92 06/18/19 07:27 133/83 92 06/18/19 07:05 06/18/19 06:35 06/18/19 06:34 127/62 06/18/19 06:32 127/62 98 06/18/19 05:47 128/53 90 06/18/19 03:43 06/18/19 03:15 128/69 06/18/19 03:13 128/69 84 06/18/19 00:46 124/85 06/17/19 23:28 06/17/19 23:08 124/85 89 06/17/19 22:58 06/17/19 20:53 06/17/19 20:12 06/17/19 20:10 97 06/17/19 20:07 145/72 06/17/19 19:37 145/72 90 06/17/19 19:28 06/17/19 18:58 06/17/19 17:10 133/84 94 06/17/19 15:03 06/17/19 15:01 135/97 96 06/17/19 13:39 18 101/77 97 06/17/19 13:24 20 131/76 96 06/17/19 13:21 20 125/80 95 06/17/19 13:19 20 114/78 95 06/17/19 13:15 16 111/74 94 06/17/19 13:12 18 124/73 93 06/17/19 13:10 20 122/76 94 06/17/19 13:07 20 161/96 97 06/17/19 13:04 20 146/84 100 06/17/19 11:18 128/85 93 06/17/19 10:00 - Physical Examination General: Other (Mild respiratory distress) HEENT: Positive: PERRL Neck: Positive: neck supple, trachea midline. Negative: JVD/HJR Cardiac: Positive: irregularly irregular, S1/S2 (Metallic click crisp sounds), S3, PMI, Dilated, Laterally Displaced Lungs: Positive: clear to auscultation, No Wheeze, Rales, Rhonchi Neuro: Positive: Grossly Intact Abdomen: Positive: Unremarkable Extremities: Absent: edema
--- NOTE | 2019-06-18 10:03 | Discharge Summary ---
Providers - Providers Date of Admission: 06/14/19 19:06 Date of discharge: 06/18/19 Attending physician: LATASHA GARCIA 06/14/19 Consult to Cardiac Rehabilitation [CONS] Routine Reason For Exam: Phase I 06/14/19 18:39 Consult to Physician [CONS] Stat Comment: EMILEE Chamberlain spoke with Dr. Lopez @ [phone] Consulting Provider: ILIA LOPEZ Physician Instructions: Reason For Exam: TACHYCARDIA [facility] Reason for admission: afib, sob Condition: Stable Hospital course: 54 YO Female with HTN, NM, CAD S/P Stent Placement and CABG, Nicotine Dependence, Systolic/Diastolic CHF, DVT, GERD, Crohns Disease, Cardiomyopathy S/P life Vest Placement and Removal, Chronic Pain, COPD presented with complaints of chest discomfort, palpitations and shortness of breath. The patient was admitted with diagnosis of atrial fibrillation with RVR, acute hypo micaela respiratory failure and CHF exacerbation. Patient was seen by cardiology in consultation. Echocardiogram completed on this admission revealed left ventricular chamber size normal with left ventricular systolic function moderately decreased EF 30-35% and left atrium severely dilated. Right ventricular global systolic function moderately reduced and mechanical mitral valve appeared well seated with normal function. The patient was continued on oral anticoagulation for mechanical MV. The patient received medical therapy for nonischemic cardiomyopathy including diuretics, afterload reduction agents and beta blockers. In addition to beta blockers, cardiology added amiodarone for management of atrial fibrillation. Unfortunately, patient had persistence of the atrial fibrillation and therefore warranted PAOLO guided cardioversion. Amiodarone was later discontinued and IV digoxin was loaded for rate control. The patient stabilized after cardioversion with rhythm strips showing atrial fibrillation/flutter well controlled on medication. Etiology felt patient could be discharged home and follow-up as an outpatient. Special subjective dictating discharge on Chelsie Nam. Dedicated discharge time 35 minutes. Disposition: -01 TO HOME OR SELFCARE Time spent for discharge: 35 - Discharge Diagnoses (1) Acute hypoxemic respiratory failure Status: Acute (2) Atrial fibrillation Status: Acute (3) CAD (coronary artery disease) Status: Acute Qualifiers: Associated angina: with stable angina (4) CHF (congestive heart failure) Status: Acute (5) GERD (gastroesophageal reflux disease) Status: Acute Qualifiers: Esophagitis presence: without esophagitis Qualified Code(s): K21.9 - Gastro-esophageal reflux disease without esophagitis (6) H/O mitral valve replacement with mechanical valve Status: Acute (7) HTN (hypertension) Status: Acute Qualifiers: Hypertension type: essential hypertension Qualified Code(s): I10 - Essential (primary) hypertension (8) Nicotine dependence with withdrawal Status: Acute Qualifiers: Nicotine product type: cigarettes Qualified Code(s): F17.213 - Nicotine dependence, cigarettes, with withdrawal (9) HTN (hypertension) Status: Chronic Qualifiers: (10) Acute exacerbation of CHF (congestive heart failure) Status: Acute Qualifiers: Qualified Code(s): I50.43 - Acute on chronic combined systolic (congestive) and diastolic (congestive) heart failure (11) Acute systolic heart failure Status: Acute (12) Anticoagulation monitoring, INR range 2.5-3.5 Status: Acute (13) Hyperlipidemia Status: Chronic Core Measure Documentation - Palliative Care Palliative Care/ Comfort Measures: Not Applicable - Core Measures Any of the following diagnoses?: none - Heart Failure Discharge Requirements MENG/ARB for LVSD if EF <40%: Yes Beta john at discharge: Yes Exam - Constitutional Vitals: Temp Pulse Resp BP Pulse Ox 98.1 F 78 18 133/83 94 06/18/19 07:27 06/18/19 09:19 06/18/19 08:36 06/18/19 09:19 06/18/19 08:58 General appearance: Present: no acute distress, well-nourished - EENT Eyes: Present: PERRL ENT: hearing intact, clear oral mucosa - Neck Neck: Present: supple, normal ROM - Respiratory Respiratory effort: normal Respiratory: bilateral: CTA - Cardiovascular Heart Sounds: Present: S1 & S2. Absent: rub, click - Extremities Extremities: pulses symmetrical, No edema Peripheral Pulses: within normal limits - Abdominal General gastrointestinal: Present: soft, non-tender, non-distended, normal bowel sounds Female genitourinary: Present: normal - Integumentary Integumentary: Present: clear, warm, dry - Musculoskeletal Musculoskeletal: gait normal, strength equal bilaterally - Psychiatric Psychiatric: appropriate mood/affect, intact judgment & insight - Neurologic Neurologic: CNII-XII intact, moves all extremities Plan Activity: advance as tolerated Weight Bearing Status: Weight Bear as Tolerated Diet: low fat, low cholesterol, low salt Follow up with: SHERRY LAWLER MD [Primary Care Provider] - 7 Days LALA WATSON MD [Staff Physician] - 7 Days Forms: Warfarin Discharge Instruction Prescriptions: Warfarin Sodium [Coumadin] 5 mg PO DAILY #30 tablet Nicotine [Habitrol] 21 mg TD QDAY #30 patch Digoxin [Lanoxin] 0.25 mg PO DAILY@1700 #30 tablet AtorvaSTATin [Lipitor] 40 mg PO QHS #30 tablet Metoprolol [Lopressor TAB] 50 mg PO Q8H #30 tablet Gabapentin [Neurontin] 300 mg PO TID #90 cap methOCARBAMOL [Robaxin TAB] 750 mg PO Q8H PRN #14 tablet PRN Reason: Pain, Moderate (4-6) oxyCODONE [roxiCODONE] 15 mg PO Q6HR #30 tablet traMADol [Ultram 50 MG tab] 50 mg PO Q6HR PRN #20 tablet PRN Reason: Pain Lisinopril [Zestril TAB] 10 mg PO QDAY #30 tablet
[2019-06-18] MEDS ORDERED: LANOXIN PO SCH (17:00)
== END 2019-06-18 13:39 | disposition home or self-care (01) | DRG 308 ==
LOC: ED 13:26 → 4A 19:06
PROVIDERS: ADMIT Internal Medicine; ATTEND Hospitalist
DX: I48.0 Paroxysmal atrial fibrillation (principal); N17.0 Acute kidney failure with tubular necrosis; J96.01 Acute respiratory failure with hypoxia; K50.90 Crohn's disease, unspecified, without complications; I25.118 Atherosclerotic heart disease of native coronary artery with other forms of angina pectoris; E66.9 Obesity, unspecified; I42.0 Dilated cardiomyopathy; I50.42 Chronic combined systolic (congestive) and diastolic (congestive) heart failure; E78.5 Hyperlipidemia, unspecified; I11.0 Hypertensive heart disease with heart failure; J44.9 Chronic obstructive pulmonary disease, unspecified; I48.92 Unspecified atrial flutter; G89.29 Other chronic pain; E87.70 Fluid overload, unspecified; I48.19 Other persistent atrial fibrillation; F17.213 Nicotine dependence, cigarettes, with withdrawal; E87.6 Hypokalemia; K21.9 Gastro-esophageal reflux disease without esophagitis; Z88.8 Allergy status to other drugs, medicaments and biological substances; Z88.1 Allergy status to other antibiotic agents; I25.2 Old myocardial infarction; Z86.718 Personal history of other venous thrombosis and embolism; Z95.5 Presence of coronary angioplasty implant and graft; Z95.810 Presence of automatic (implantable) cardiac defibrillator; Z90.49 Acquired absence of other specified parts of digestive tract; Z90.710 Acquired absence of both cervix and uterus; Z95.4 Presence of other heart-valve replacement; Z79.01 Long term (current) use of anticoagulants; Z79.899 Other long term (current) drug therapy; Z82.49 Family history of ischemic heart disease and other diseases of the circulatory system; Z71.6 Tobacco abuse counseling; Z68.41 Body mass index [BMI] 40.0-44.9, adult; Z71.3 Dietary counseling and surveillance; I69.392 Facial weakness following cerebral infarction
CPT/HCPCS: 36415; 71045; 71275; 80053; 80061; 80307; 81001; 83735; 83880; 84439; 84443; 84484; 85014; 85018; 85025; 85049; 85379; 85610; 85730; 93005; 93010; 93306; 93312; 93320; 93325; 94640; 94760; 96374; 99406; G0378; A9270-GY; J0282; J0360; J1160; J1170; J1644; J1940; J2270; J2704; J7040; Q9967

== ENCOUNTER 2020-05-30 20:01 | Emergency (ER) | payer MEDICAID ==
[2020-05-30] MEDS ORDERED: ALBUTEROL 2.5 MG/3 ML NEBU IH ONE (20:55)
[2020-05-30] MEDS ORDERED: IPRATROPIUM 0.02% NEBU 2.5 ML IH ONE (20:55)
[2020-05-30] MEDS ORDERED: PHENYLEPHRINE/SHARK LIVER/CCB 0.25/3/85.5%(PREP H) RECT SUPP PR ONE (21:02)
--- NOTE | 2020-05-30 21:03 | Emergency Department Report ---
ED General Adult HPI - General Chief complaint: Rectal Pain Stated complaint: AMS Time Seen by Provider: 05/30/20 20:22 Source: patient, EMS Mode of arrival: Stretcher Limitations: No Limitations - History of Present Illness Initial comments: 55 YO Female with HTN, MT, CAD S/P Stent Placement and CABG, Nicotine Dependence, Systolic/Diastolic CHF EF 30-35%, DVT, GERD, Crohns Disease, Cardiomyopathy, Chronic Pain, COPD ON 2L, Mechanical valve on coumadin, and AFIB s/p PAOLO cardioversion presents to the hospital complaining of rectal pain. Patient states that she had a bowel movement followed by rectal plan noted blood in the toilet. She also told EMS that she had blood running down her legs. No blood was seen on patient's legs. Patient states she has a history of anal fissures in the past. Patient seems to be exhibiting some mild confusion. She is oriented to person, place, but states the year is 1999. She does know the president. 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 She had no complaints at that time. The rectal pain started after having a bowel movement when she went home. Patient also has some mild tachypnea and presents to the ED satting 89 to 91% on room air. She denied calling ems due to sob. She was placed on 2 L of supplemental oxygen. She denies cough or fever. Patient is complaining of moderate to severe rectal pain. She denies taking pain medication currently although it is noted in the chart that she has chronic pain. - Related Data Previous Rx's Medication Instructions Recorded Last Taken Type Atorvastatin [Lipitor] 40 mg PO QHS #30 06/27/17 06/13/19 Rx Prednisone [predniSONE 10 mg 10 mg PO .TAPER #1 tab.ds.pk 11/10/17 06/13/19 Rx (6-Day Pack, 21 Tabs)] predniSONE [Deltasone] 50 mg PO QDAY #5 tab 01/21/19 06/13/19 Rx AtorvaSTATin [Lipitor] 40 mg PO QHS #30 tablet 06/18/19 Unknown Rx Digoxin [Lanoxin] 0.25 mg PO DAILY@1700 #30 tablet 06/18/19 Unknown Rx Gabapentin 300 mg PO TID #90 cap 06/18/19 Unknown Rx Metoprolol [Lopressor TAB] 50 mg PO Q8H #30 tablet 06/18/19 Unknown Rx Nicotine [Habitrol] 21 mg TD QDAY #30 patch 06/18/19 Unknown Rx Warfarin Sodium [Coumadin] 5 mg PO DAILY #30 tablet 06/18/19 Unknown Rx lisinopriL [Zestril TAB] 10 mg PO QDAY #30 tablet 06/18/19 Unknown Rx methOCARBAMOL [Robaxin TAB] 750 mg PO Q8H PRN #14 tablet 06/18/19 Unknown Rx oxyCODONE [roxiCODONE] 15 mg PO Q6HR #30 tablet 06/18/19 Unknown Rx traMADoL [Ultram 50 MG tab] 50 mg PO Q6HR PRN #20 tablet 06/18/19 Unknown Rx Azithromycin [Zithromax Z-NOAH] 1 dose PO DAILY 5 Days tab 05/30/20 Unknown Rx Docusate Sodium [Colace] 100 mg PO BID PRN #20 capsule 05/30/20 Unknown Rx Allergies Allergy/AdvReac Type Severity Reaction Status Date / Time nitroglycerin Allergy Angioedema Verified 06/10/15 08:19 NSAIDS (Non-Steroidal Allergy Swelling Verified 06/10/15 08:19 Anti-Inflamma ED Review of Systems ROS: Stated complaint: AMS Other details as noted in HPI Comment: All other systems reviewed and negative ED Past Medical Hx - Past Medical History Hx Hypertension: Yes Hx CVA: No Hx Heart Attack/AMI: No Hx Congestive Heart Failure: Yes Hx Diabetes: No Hx Deep Vein Thrombosis: Yes Hx Pulmonary Embolism: No Hx GERD: Yes (hiatal hernia) Hx Liver Disease: No Hx Renal Disease: No Hx Sickle Cell Disease: No Hx Arthritis: No Hx Headaches / Migraines: No Hx Seizures: No Hx Psychiatric Treatment: No Hx Asthma: No Hx COPD: Yes Hx Tuberculosis: No Hx Dementia: No Hx HIV: No Additional medical history: Crohn's disease. DILATED Cardiomyopathy. Life vest in place removed 2017-. hx DVT in LUE. HPLD. chronic pain - Surgical History Hx Coronary Stent: Yes Hx Open Heart Surgery: No (mitral valve replacement (from old chart, pt. unsure)) Hx Pacemaker: Yes Hx Internal Defibrillator: Yes (s/p AVR, MVR, and TV repair) Hx Cholecystectomy: No Hx Appendectomy: No Hx Breast Surgery: No Additional Surgical History: bowel resection- December 2007, (3) Fissurectomies,. Hysterectomy. defibrillator placed 11/2015 - Social History Smoking Status: Current Every Day Smoker Substance Use Type: None - Medications Home Medications: Home Medications Medication Instructions Recorded Confirmed Last Taken Type Atorvastatin [Lipitor] 40 mg PO QHS #30 06/27/17 06/14/19 06/13/19 Rx Prednisone [predniSONE 10 mg 10 mg PO .TAPER #1 tab.ds.pk 11/10/17 06/14/19 06/13/19 Rx (6-Day Pack, 21 Tabs)] predniSONE [Deltasone] 50 mg PO QDAY #5 tab 01/21/19 06/14/19 06/13/19 Rx AtorvaSTATin [Lipitor] 40 mg PO QHS #30 tablet 06/18/19 Unknown Rx Digoxin [Lanoxin] 0.25 mg PO DAILY@1700 #30 tablet 06/18/19 Unknown Rx Gabapentin 300 mg PO TID #90 cap 06/18/19 Unknown Rx Metoprolol [Lopressor TAB] 50 mg PO Q8H #30 tablet 06/18/19 Unknown Rx Nicotine [Habitrol] 21 mg TD QDAY #30 patch 06/18/19 Unknown Rx Warfarin Sodium [Coumadin] 5 mg PO DAILY #30 tablet 06/18/19 Unknown Rx lisinopriL [Zestril TAB] 10 mg PO QDAY #30 tablet 06/18/19 Unknown Rx methOCARBAMOL [Robaxin TAB] 750 mg PO Q8H PRN #14 tablet 06/18/19 Unknown Rx oxyCODONE [roxiCODONE] 15 mg PO Q6HR #30 tablet 06/18/19 Unknown Rx traMADoL [Ultram 50 MG tab] 50 mg PO Q6HR PRN #20 tablet 06/18/19 Unknown Rx Azithromycin [Zithromax Z-NOAH] 1 dose PO DAILY 5 Days tab 05/30/20 Unknown Rx Docusate Sodium [Colace] 100 mg PO BID PRN #20 capsule 05/30/20 Unknown Rx ED Physical Exam - General Limitations: No Limitations - Other Other exam information: General: No acute distress Head: Atraumatic Eyes: normal appearance ENT: Moist mucous membranes Neck: Normal appearance, no midline tenderness Chest: Mildly diminished breath sounds without wheeze, tachypnea CV: Regular rate and rhythm Abdomen: Soft, normal bowel sounds, mild lower abdominal tender, nondistended, no rebound or guarding rectal: No external hemorrhoids, no Obvious rectal fissure, mild tenderness on rectal exam. Brown stool without gross blood, no melena, guaiac negative Back: Normal inspection Extremity: Normal inspection, full range of motion, mild lower extremity edema, no calf tenderness or leg asymmetry Neuro: Alert O x 3, no facial asymmetry, speech clear, no gross motor sensory deficit Psych: Appropriate behavior Skin: Chronic skin darkening of bilateral lower extremities ED Course Vital Signs 05/30/20 05/30/20 05/30/20 20:21 20:30 20:32 Temperature 99.3 F Pulse Rate 88 88 91 H Respiratory 20 16 20 Rate Blood Pressure 179/88 179/88 179/88 O2 Sat by Pulse 87 93 Oximetry 05/30/20 05/30/20 05/30/20 20:46 21:00 21:16 Temperature Pulse Rate 100 H 100 H 102 H Respiratory 15 21 14 Rate Blood Pressure 207/96 201/90 183/102 O2 Sat by Pulse 97 99 100 Oximetry 05/30/20 05/30/20 05/30/20 21:30 21:46 22:00 Temperature Pulse Rate 99 H 95 H 94 H Respiratory 12 20 13 Rate Blood Pressure 183/102 183/102 183/102 O2 Sat by Pulse 100 100 100 Oximetry 05/30/20 05/30/20 05/30/20 22:06 22:16 22:42 Temperature Pulse Rate 99 H 93 H Respiratory 22 20 10 L Rate Blood Pressure 183/102 183/102 O2 Sat by Pulse 98 99 Oximetry 05/30/20 05/30/20 05/30/20 22:46 23:00 23:18 Temperature Pulse Rate 92 H 102 H Respiratory 14 17 Rate Blood Pressure 160/76 163/81 178/88 O2 Sat by Pulse 99 98 100 Oximetry ED Medical Decision Making - Lab Data Result diagrams: 05/30/20 21:25 05/30/20 21:25 Lab Results 05/30/20 05/30/20 05/30/20 Range/Units 21:10 21:25 21:25 WBC 7.4 (4.5-11.0) K/mm3 RBC 3.32 L (3.65-5.03) M/mm3 Hgb 8.3 L (10.1-14.3) gm/dl Hct 26.7 L (30.3-42.9) % MCV 81 (79-97) fl MCH 25 L (28-32) pg MCHC 31 (30-34) % RDW 20.2 H (13.2-15.2) % Plt Count 388 (140-440) K/mm3 Lymph % (Auto) 16.7 (13.4-35.0) % [place] % (Auto) 9.3 H (0.0-7.3) % Eos % (Auto) 1.6 (0.0-4.3) % Baso % (Auto) 0.6 (0.0-1.8) % Lymph # (Auto) 1.2 (1.2-5.4) K/mm3 [place] # (Auto) 0.7 (0.0-0.8) K/mm3 Eos # (Auto) 0.1 (0.0-0.4) K/mm3 Baso # (Auto) 0.0 (0.0-0.1) K/mm3 Seg Neutrophils % 71.8 H (40.0-70.0) % Seg Neutrophils # 5.3 (1.8-7.7) K/mm3 PT 24.3 H (12.2-14.9) Sec. INR 2.15 H (0.87-1.13) APTT 45.4 H (24.2-36.6) Sec. ABG pH 7.478 H (7.350-7.450) pH Units ABG pCO2 34.8 mm Hg ABG pO2 88.8 (80.0-90.0) mm Hg ABG HCO3 25.2 (20.0-26.0) mmol/L ABG O2 Saturation 97.4 (95.0-99.0) % ABG O2 Content 11.6 (0.0-44) ABG Base Excess 1.7 (-2.0-3.0) mmol/L ABG Hemoglobin 8.7 L (12.0-16.0) gm/dl ABG Carboxyhemoglobin 3.9 (0.0-5.0) % ABG Methemoglobin 0.5 (0.0-1.5) % Oxyhemoglobin 93.1 L (95.0-99.0) % FiO2 28 % Sodium (137-145) mmol/L Potassium (3.6-5.0) mmol/L Chloride (98-107) mmol/L Carbon Dioxide (22-30) mmol/L Anion Gap mmol/L BUN (7-17) mg/dL Creatinine (0.6-1.2) mg/dL Estimated GFR ml/min BUN/Creatinine Ratio % Glucose (65-100) mg/dL Calcium (8.4-10.2) mg/dL Total Bilirubin (0.1-1.2) mg/dL AST (5-40) units/L ALT (7-56) units/L Alkaline Phosphatase (35-129) units/L NT-Pro-B Natriuret Pep (0-900) pg/mL Total Protein (6.3-8.2) g/dL Albumin (3.9-5) g/dL Albumin/Globulin Ratio % Urine Color (Yellow) Urine Turbidity (Clear) Urine pH (5.0-7.0) Ur Specific [place] (1.003-1.030) Urine Protein (Negative) mg/dL Urine Glucose (UA) (Negative) mg/dL Urine Ketones (Negative) mg/dL Urine Blood (Negative) Urine Nitrite (Negative) Urine Bilirubin (Negative) Urine Urobilinogen (<2.0) mg/dL Ur Leukocyte Esterase (Negative) Urine WBC (Auto) (0.0-6.0) /HPF Urine RBC (Auto) (0.0-6.0) /HPF U Epithel Cells (Auto) (0-13.0) /HPF Urine Opiates Screen Urine Methadone Screen Ur Barbiturates Screen Ur Phencyclidine Scrn Ur Amphetamines Screen U Benzodiazepines Scrn Urine Cocaine Screen U Marijuana (THC) Screen Drugs of Abuse Note 05/30/20 05/30/20 05/30/20 Range/Units 21:25 21:25 22:34 WBC (4.5-11.0) K/mm3 RBC (3.65-5.03) M/mm3 Hgb (10.1-14.3) gm/dl Hct (30.3-42.9) % MCV (79-97) fl MCH (28-32) pg MCHC (30-34) % RDW (13.2-15.2) % Plt Count (140-440) K/mm3 Lymph % (Auto) (13.4-35.0) % [place] % (Auto) (0.0-7.3) % Eos % (Auto) (0.0-4.3) % Baso % (Auto) (0.0-1.8) % Lymph # (Auto) (1.2-5.4) K/mm3 [place] # (Auto) (0.0-0.8) K/mm3 Eos # (Auto) (0.0-0.4) K/mm3 Baso # (Auto) (0.0-0.1) K/mm3 Seg Neutrophils % (40.0-70.0) % Seg Neutrophils # (1.8-7.7) K/mm3 PT (12.2-14.9) Sec. INR (0.87-1.13) APTT (24.2-36.6) Sec. ABG pH (7.350-7.450) pH Units ABG pCO2 mm Hg ABG pO2 (80.0-90.0) mm Hg ABG HCO3 (20.0-26.0) mmol/L ABG O2 Saturation (95.0-99.0) % ABG O2 Content (0.0-44) ABG Base Excess (-2.0-3.0) mmol/L ABG Hemoglobin (12.0-16.0) gm/dl ABG Carboxyhemoglobin (0.0-5.0) % ABG Methemoglobin (0.0-1.5) % Oxyhemoglobin (95.0-99.0) % FiO2 % Sodium 141 (137-145) mmol/L Potassium 3.3 L (3.6-5.0) mmol/L Chloride 103.0 (98-107) mmol/L Carbon Dioxide 24 (22-30) mmol/L Anion Gap 17 mmol/L BUN 12 (7-17) mg/dL Creatinine 0.8 (0.6-1.2) mg/dL Estimated GFR > 60 ml/min BUN/Creatinine Ratio 15 % Glucose 83 (65-100) mg/dL Calcium 9.2 (8.4-10.2) mg/dL Total Bilirubin 2.10 H (0.1-1.2) mg/dL AST 23 (5-40) units/L ALT 15 (7-56) units/L Alkaline Phosphatase 116 (35-129) units/L NT-Pro-B Natriuret Pep 2593 H (0-900) pg/mL Total Protein 7.2 (6.3-8.2) g/dL Albumin 3.6 L (3.9-5) g/dL Albumin/Globulin Ratio 1.0 % Urine Color Yellow (Yellow) Urine Turbidity Clear (Clear) Urine pH 9.0 H (5.0-7.0) Ur Specific [place] 1.009 (1.003-1.030) Urine Protein <15 mg/dl (Negative) mg/dL Urine Glucose (UA) Neg (Negative) mg/dL Urine Ketones Tr (Negative) mg/dL Urine Blood Neg (Negative) Urine Nitrite Neg (Negative) Urine Bilirubin Neg (Negative) Urine Urobilinogen 4.0 (<2.0) mg/dL Ur Leukocyte Esterase Neg (Negative) Urine WBC (Auto) < 1.0 (0.0-6.0) /HPF Urine RBC (Auto) 1.0 (0.0-6.0) /HPF U Epithel Cells (Auto) < 1.0 (0-13.0) /HPF Urine Opiates Screen Urine Methadone Screen Ur Barbiturates Screen Ur Phencyclidine Scrn Ur Amphetamines Screen U Benzodiazepines Scrn Urine Cocaine Screen U Marijuana (THC) Screen Drugs of Abuse Note 05/30/20 Range/Units 22:34 WBC (4.5-11.0) K/mm3 RBC (3.65-5.03) M/mm3 Hgb (10.1-14.3) gm/dl Hct (30.3-42.9) % MCV (79-97) fl MCH (28-32) pg MCHC (30-34) % RDW (13.2-15.2) % Plt Count (140-440) K/mm3 Lymph % (Auto) (13.4-35.0) % [place] % (Auto) (0.0-7.3) % Eos % (Auto) (0.0-4.3) % Baso % (Auto) (0.0-1.8) % Lymph # (Auto) (1.2-5.4) K/mm3 [place] # (Auto) (0.0-0.8) K/mm3 Eos # (Auto) (0.0-0.4) K/mm3 Baso # (Auto) (0.0-0.1) K/mm3 Seg Neutrophils % (40.0-70.0) % Seg Neutrophils # (1.8-7.7) K/mm3 PT (12.2-14.9) Sec. INR (0.87-1.13) APTT (24.2-36.6) Sec. ABG pH (7.350-7.450) pH Units ABG pCO2 mm Hg ABG pO2 (80.0-90.0) mm Hg ABG HCO3 (20.0-26.0) mmol/L ABG O2 Saturation (95.0-99.0) % ABG O2 Content (0.0-44) ABG Base Excess (-2.0-3.0) mmol/L ABG Hemoglobin (12.0-16.0) gm/dl ABG Carboxyhemoglobin (0.0-5.0) % ABG Methemoglobin (0.0-1.5) % Oxyhemoglobin (95.0-99.0) % FiO2 % Sodium (137-145) mmol/L Potassium (3.6-5.0) mmol/L Chloride (98-107) mmol/L Carbon Dioxide (22-30) mmol/L Anion Gap mmol/L BUN (7-17) mg/dL Creatinine (0.6-1.2) mg/dL Estimated GFR ml/min BUN/Creatinine Ratio % Glucose (65-100) mg/dL Calcium (8.4-10.2) mg/dL Total Bilirubin (0.1-1.2) mg/dL AST (5-40) units/L ALT (7-56) units/L Alkaline Phosphatase (35-129) units/L NT-Pro-B Natriuret Pep (0-900) pg/mL Total Protein (6.3-8.2) g/dL Albumin (3.9-5) g/dL Albumin/Globulin Ratio % Urine Color (Yellow) Urine Turbidity (Clear) Urine pH (5.0-7.0) Ur Specific [place] (1.003-1.030) Urine Protein (Negative) mg/dL Urine Glucose (UA) (Negative) mg/dL Urine Ketones (Negative) mg/dL Urine Blood (Negative) Urine Nitrite (Negative) Urine Bilirubin (Negative) Urine Urobilinogen (<2.0) mg/dL Ur Leukocyte Esterase (Negative) Urine WBC (Auto) (0.0-6.0) /HPF Urine RBC (Auto) (0.0-6.0) /HPF U Epithel Cells (Auto) (0-13.0) /HPF Urine Opiates Screen Presumptive negative Urine Methadone Screen Presumptive negative Ur Barbiturates Screen Presumptive negative Ur Phencyclidine Scrn Presumptive negative Ur Amphetamines Screen Presumptive negative U Benzodiazepines Scrn Presumptive negative Urine Cocaine Screen Presumptive negative U Marijuana (THC) Screen Presumptive negative Drugs of Abuse Note Disclamer - EKG Data -: EKG Interpreted by Me (atrial flutter, rbbb, IVC lvh with repol) EKG shows normal: ST-T waves (no stemi) Rate: tachycardia (100) - EKG Data When compared to previous EKG there are: no significant change - Radiology Data Radiology results: report reviewed CT ABDOMEN AND PELVIS WITHOUT CONTRAST HISTORY: Lower abdominal pain and rectal pain COMPARISON: None TECHNIQUE: Routine abdominal and pelvic CT exam performed without contrast. Lack of intravenous contrast limits evaluation of the vascular and solid organs.. All CT scans at this location are performed using CT dose reduction for [employer] by means of automated exposure control. FINDINGS: CT ABDOMEN: Lung Bases: There is linear scarring in both lower lobes. Liver: No significant abnormality. Biliary: Gallbladder is surgically absent. Spleen: No significant abnormality. Unenlarged. Pancreas: No significant abnormality. Adrenals: No significant abnormality. Kidneys: No acute findings. Mild chronic scarring in the lower and anterior left kidney. Lymphatics: No lymphadenopathy. Vasculature: Atherosclerotic but nonaneurysmal abdominal aorta. Bowel/Peritoneum: No acute findings. No obstruction, free air, or pneumatosis. Small fat-containing umbilical hernia. Normal appendix. CT PELVIC: : No significant abnormality. Lymphatics: No lymphadenopathy. Osseous Structures: No aggressive appearing osseous lesions. Additional Findings: None IMPRESSION: 1. No acute findings. 2. Numerous incidental findings as described above. CT head/brain wo con INDICATION: Confusion. TECHNIQUE: Routine CT head without contrast. All CT scans at this location are performed using CT dose reduction for [employer] by means of automated exposure control. COMPARISON: None. FINDINGS: BRAIN / INTRACRANIAL CONTENTS: No acute hemorrhage, mass effect, midline shift, or hydrocephalus. No appreciable acute large territorial or lacunar infarct. There is chronic encephalomalacia in the bilateral parieto-occipital regions, right greater than left. There is also chronic encephalomalacia in the left inferior frontal gyrus. There are also small chronic infarcts in both cerebellar hemispheres. There is moderate chronic small vessel ischemic change in the cerebral white matter. ORBITS: No significant abnormality of visualized orbits. SINUSES / MASTOIDS: No significant abnormality of visualized sinuses and mastoid air cells. ADDITIONAL FINDINGS: None. IMPRESSION: 1. No acute findings. 2. Multiple chronic infarcts as detailed above. CHEST 1 VIEW 05/30/2020 9:41 PM INDICATION / CLINICAL INFORMATION: sob. COMPARISON: 06/14/2019. FINDINGS: SUPPORT DEVICES: None. HEART / MEDIASTINUM: Stable. LUNGS / PLEURA: Redemonstration of central vascular congestion. There is patchy airspace density within the right lower lung peripherally. There may be a trace right-sided pleural effusion as well. No pneumothorax. ADDITIONAL FINDINGS: No significant additional findings. IMPRESSION: 1. Stable cardiomegaly and central vascular congestion 1 compared to the study from 2019. 2. Patchy airspace density within the right lower lung peripherally could represent developing pneumonitis in the right clinical setting. 3. Tiny right pleural effusion. - Medical Decision Making Patient complaining of rectal pain and rectal bleeding without any clinical findings on examination or CT. Guaiac negative brown stool noted. Labs, CMP, UA, UDS negative. Patient denies having pain medication at home but as per drug monitoring site patient is prescribed oxycodone 30 mg tablets #80 monthly with last prescription filled on May 17. Patient provided 2 Percocets here in the ED. Patient has chronic COPD as per medical record with O2 dependence. X- ray show stable pulmonary congestion and possible developing pneumonitis. Patient treated in the ER with bronchial dilators and azithromycin p.o. x1. She will be discharged on antibiotics and told to continue her current narcotic pain medication. Stool softeners will also be prescribed. Patient provided p.o. potassium for mild hypokalemia. Patient refused rectal suppository in ED As per [place] prescription monitoring site 05/17/2020 1 05/17/2020 OXYCODONE HCL 30 MG TABLET 80.0 26 AT PAT [id number] [facility] ([id number]) 0 04/19/2020 1 04/19/2020 OXYCODONE HCL 30 MG OMQVOI31.0 25 AT PAT [id number] [facility] ([id number]) 0 pt claims she did not recently fill any narcotic meds however, these meds were filled under her name and . pt said the office stopped providing her meds she was encouraged to f/u with an alternative pain management doctor as needed and additional narcotics will not be prescribed at this time Critical Care Time: No Critical care attestation.: If time is entered above; I have spent that time in minutes in the direct care of this critically ill patient, excluding procedure time. ED Disposition Clinical Impression: COPD exacerbation, Rectal pain, Chronic pain, Pneumonitis Disposition: TO HOME OR SELFCARE Is pt being admited?: No Does the pt Need Aspirin: No Condition: Stable Instructions: Chronic Obstructive Pulmonary Disease (ED), Rectal Bleeding (ED), Chronic Pain (ED) Additional Instructions: Take the medication as prescribed. Follow-up with your doctor or doctor/clinic provided. Return if symptoms worsen as indicated by your discharge instructions. Prescriptions: Docusate Sodium [Colace] 100 mg PO BID PRN #20 capsule PRN Reason: Constipation Azithromycin [Zithromax Z-NOAH] 1 dose PO DAILY 5 Days tab Referrals: PRIMARY CARE, [Primary Care Provider] - 3-5 Days [facility] [Provider Group] - 3-5 Days (GI specialist ) Time of Disposition: 00:09
[2020-05-30 21:25] LABS: ABG Base Excess 1.7 mmol/L (-2.0-3.0); ABG HCO3 25.2 mmol/L (20.0-26.0); ABG Methemoglobin 0.5 % (0.0-1.5); ABG Oxygen Saturation 97.4 % (95.0-99.0); ABG PCO2 34.8 mm Hg; ABG PH 7.478 pH Units (7.350-7.450); ABG PO2 88.8 mm Hg (80.0-90.0)
[2020-05-30] MEDS ORDERED: oxyCODONE /ACETAMINOPHEN 5-325MG TAB PO ONE (21:55)
[2020-05-30 22:06] LABS: Basophils % (Auto) 0.6 % (0.0-1.8); Eosinophils # (Auto) 0.1 K/mm3 (0.0-0.4); Eosinophils % (Auto) 1.6 % (0.0-4.3); Hematocrit 26.7 % (30.3-42.9); Hemoglobin 8.3 gm/dl (10.1-14.3); Lymphocytes # (Auto) 1.2 K/mm3 (1.2-5.4); Lymphocytes % (Auto) 16.7 % (13.4-35.0); Mean Corpuscular HGB Conc 31 % (30-34); Mean Corpuscular Volume 81 fl (79-97); Monocytes # (Auto) 0.7 K/mm3 (0.0-0.8); Monocytes % (Auto) 9.3 % (0.0-7.3); Platelet Count 388 K/mm3 (140-440); Red Blood Count 3.32 M/mm3 (3.65-5.03); Red Cell Distribution Width 20.2 % (13.2-15.2)
[2020-05-30] MEDS: ONDANSETRON 4 MG/2 ML INJ IV ONE ×2 (22:07→22:16)
[2020-05-30] MEDS: MORPHINE 4 MG/1 ML INJ IV ONE ×2 (22:07→22:15)
[2020-05-30 22:15] LABS: INR 2.15 (0.87-1.13)
[2020-05-30 22:16] LABS: Partial Thromboplastin Time 45.4 Sec. (24.2-36.6)
[2020-05-30 22:35] LABS: Alanine Aminotransferase 15 units/L (7-56); Albumin 3.6 g/dL (3.9-5); BUN/Creatinine Ratio 15; Blood Urea Nitrogen 12 mg/dL (7-17); Calcium 9.2 mg/dL (8.4-10.2); Hemolysis Index 2
--- NOTE | 2020-05-30 22:52 | XRay Report ---
CHEST 1 VIEW 05/30/2020 9:41 PM INDICATION / CLINICAL INFORMATION: sob. COMPARISON: 06/14/2019. FINDINGS: SUPPORT DEVICES: None. HEART / MEDIASTINUM: Stable. LUNGS / PLEURA: Redemonstration of central vascular congestion. There is patchy airspace density with in the right lower lung peripherally. There may be a trace right-sided pleural effusion as well. No p neumothorax. ADDITIONAL FINDINGS: No significant additional findings. IMPRESSION: 1. Stable cardiomegaly and central vascular congestion 1 compared to the study from 2019. 2. Patchy airspace density within the right lower lung peripherally could represent developing pneumo nitis in the right clinical setting. 3. Tiny right pleural effusion. Signer Name: Rainer Lobo MD Signed: 05/30/2020 10:48 PM Workstation Name: [id number]
[2020-05-30 23:01] LABS: Bilirubin,Urine NEG (Negative); Blood,Urine NEG (Negative); Color,Urine Yellow (Yellow); Protein,Urine <15 mg/dL mg/dL (Negative)
[2020-05-30 23:10] LABS: Amphetamine Screen,Urine PRESUMPTIVE NEGATIVE; Benzodiazepines Screen,Urine PRESUMPTIVE NEGATIVE; Cannabinoid Screen,Urine PRESUMPTIVE NEGATIVE; Cocaine Screen,Urine PRESUMPTIVE NEGATIVE; Methadone Screen,Urine PRESUMPTIVE NEGATIVE; Opiate Screen,Urine PRESUMPTIVE NEGATIVE
[2020-05-30 23:11] LABS: WBC,Urine < 1.0 /HPF (0.0-6.0)
--- NOTE | 2020-05-30 23:26 | Cat Scan Report ---
CT head/brain wo con INDICATION: Confusion. TECHNIQUE: Routine CT head without contrast. All CT scans at this location are performed using CT dos e reduction for [facility] by means of automated exposure control. COMPARISON: None. FINDINGS: BRAIN / INTRACRANIAL CONTENTS: No acute hemorrhage, mass effect, midline shift, or hydrocephalus. No appreciable acute large territorial or lacunar infarct. There is chronic encephalomalacia in the bila teral parieto-occipital regions, right greater than left. There is also chronic encephalomalacia in t he left inferior frontal gyrus. There are also small chronic infarcts in both cerebellar hemispheres. There is moderate chronic small vessel ischemic change in the cerebral white matter. ORBITS: No significant abnormality of visualized orbits. SINUSES / MASTOIDS: No significant abnormality of visualized sinuses and mastoid air cells. ADDITIONAL FINDINGS: None. IMPRESSION: 1. No acute findings. 2. Multiple chronic infarcts as detailed above. Signer Name: Baltaazr Mccormack MD Signed: 05/30/2020 11:21 PM Workstation Name: [id number]
--- NOTE | 2020-05-30 23:28 | Cat Scan Report ---
CT ABDOMEN AND PELVIS WITHOUT CONTRAST HISTORY: Lower abdominal pain and rectal pain COMPARISON: None TECHNIQUE: Routine abdominal and pelvic CT exam performed without contrast. Lack of intravenous cont rast limits evaluation of the vascular and solid organs.. All CT scans at this location are performed using CT dose reduction for [facility] by means of automated exposure control. FINDINGS: CT ABDOMEN: Lung Bases: There is linear scarring in both lower lobes. Liver: No significant abnormality. Biliary: Gallbladder is surgically absent. Spleen: No significant abnormality. Unenlarged. Pancreas: No significant abnormality. Adrenals: No significant abnormality. Kidneys: No acute findings. Mild chronic scarring in the lower and anterior left kidney. Lymphatics: No lymphadenopathy. Vasculature: Atherosclerotic but nonaneurysmal abdominal aorta. Bowel/Peritoneum: No acute findings. No obstruction, free air, or pneumatosis. Small fat-containing u mbilical hernia. Normal appendix. CT PELVIC: : No significant abnormality. Lymphatics: No lymphadenopathy. Osseous Structures: No aggressive appearing osseous lesions. Additional Findings: None IMPRESSION: 1. No acute findings. 2. Numerous incidental findings as described above. Signer Name: Baltazar Mccormack MD Signed: 05/30/2020 11:23 PM Workstation Name: [id number]
[2020-05-30] MEDS ORDERED: POTASSIUM CHLORIDE ER 20 MEQ TAB PO ONE (23:45)
[2020-05-30] MEDS ORDERED: AZITHROMYCIN 250 MG TAB PO ONE (23:45)
[2020-05-31 00:46] VITALS: BP 187/77
== END 2020-05-31 02:15 | disposition home or self-care (01) ==
LOC: ED 20:01
DX: J44.1 Chronic obstructive pulmonary disease with (acute) exacerbation (principal); J18.9 Pneumonia, unspecified organism; K62.89 Other specified diseases of anus and rectum; G89.29 Other chronic pain; I50.9 Heart failure, unspecified; I11.0 Hypertensive heart disease with heart failure; K21.9 Gastro-esophageal reflux disease without esophagitis; F17.200 Nicotine dependence, unspecified, uncomplicated; Z98.890 Other specified postprocedural states; Z90.710 Acquired absence of both cervix and uterus; Z79.2 Long term (current) use of antibiotics; Z79.899 Other long term (current) drug therapy; Z88.6 Allergy status to analgesic agent; Z88.8 Allergy status to other drugs, medicaments and biological substances
CPT/HCPCS: 36415; 70450; 71045; 74176; 80053; 80307; 81001; 82271; 82803; 83880; 85025; 85610; 85730; 93005; 94640; 99285; J2270; J2405

== ENCOUNTER 2020-06-28 07:18 | Emergency (ER) | payer MEDICAID ==
[2020-06-28 07:26] VITALS: BP 149/62
--- NOTE | 2020-06-28 09:24 | Emergency Department Report ---
ED Fall HPI - General Chief Complaint: Back Pain/Injury Stated Complaint: BACK PAINS Time Seen by Provider: 06/28/20 09:12 Source: patient Mode of arrival: Wheelchair - History of Present Illness Initial Comments: This very pleasant 55-year-old female presents the emergency department chief complaint of lower back pain after a ground-level fall today. Patient reports she was walking into her bathroom this morning when she tripped and fell and landed on her lower back. She denies hitting her head or losing consciousness. She denies any pain anywhere else. She reports pain is aggravated by movement described as dull and throbbing and rated as 6 out of 10 in severity. She denies any associated fever, chills, night sweats, headache, dizziness, blurry vision, nausea, vomiting, diarrhea, chest pain, shortness of breath, saddle anesthesia, urinary or bowel incontinence, weakness in her legs, numbness in her legs, urinary retention or any other associated symptoms. - Related Data Previous Rx's Medication Instructions Recorded Last Taken Type Atorvastatin [Lipitor] 40 mg PO QHS #30 06/27/17 06/13/19 Rx Prednisone [predniSONE 10 mg 10 mg PO .TAPER #1 tab.ds.pk 11/10/17 06/13/19 Rx (6-Day Pack, 21 Tabs)] predniSONE [Deltasone] 50 mg PO QDAY #5 tab 01/21/19 06/13/19 Rx AtorvaSTATin [Lipitor] 40 mg PO QHS #30 tablet 06/18/19 Unknown Rx Digoxin [Lanoxin] 0.25 mg PO DAILY@1700 #30 tablet 06/18/19 Unknown Rx Gabapentin 300 mg PO TID #90 cap 06/18/19 Unknown Rx Metoprolol [Lopressor TAB] 50 mg PO Q8H #30 tablet 06/18/19 Unknown Rx Nicotine [Habitrol] 21 mg TD QDAY #30 patch 06/18/19 Unknown Rx Warfarin Sodium [Coumadin] 5 mg PO DAILY #30 tablet 06/18/19 Unknown Rx lisinopriL [Zestril TAB] 10 mg PO QDAY #30 tablet 06/18/19 Unknown Rx methOCARBAMOL [Robaxin TAB] 750 mg PO Q8H PRN #14 tablet 06/18/19 Unknown Rx oxyCODONE [roxiCODONE] 15 mg PO Q6HR #30 tablet 06/18/19 Unknown Rx traMADoL [Ultram 50 MG tab] 50 mg PO Q6HR PRN #20 tablet 06/18/19 Unknown Rx Azithromycin [Zithromax Z-NOAH] 1 dose PO DAILY 5 Days tab 05/30/20 Unknown Rx Docusate Sodium [Colace] 100 mg PO BID PRN #20 capsule 05/30/20 Unknown Rx Allergies Allergy/AdvReac Type Severity Reaction Status Date / Time No Known Allergies Allergy Unverified 06/28/20 07:23 ED Review of Systems ROS: Stated complaint: BACK PAINS Other details as noted in HPI Constitutional: denies: chills, fever Eyes: denies: eye pain, eye discharge, vision change ENT: denies: ear pain, throat pain Respiratory: denies: cough, shortness of breath, wheezing Cardiovascular: denies: chest pain, palpitations Endocrine: no symptoms reported Gastrointestinal: denies: abdominal pain, nausea, diarrhea Genitourinary: denies: urgency, dysuria, discharge Musculoskeletal: as per HPI, back pain. denies: joint swelling, arthralgia Skin: denies: rash, lesions Neurological: denies: headache, weakness, paresthesias Psychiatric: denies: anxiety, depression Hematological/Lymphatic: denies: easy bleeding, easy bruising ED Past Medical Hx - Past Medical History Hx Hypertension: Yes Hx CVA: No Hx Heart Attack/AMI: No Hx Congestive Heart Failure: Yes Hx Diabetes: No Hx Deep Vein Thrombosis: Yes Hx Pulmonary Embolism: No Hx GERD: Yes (hiatal hernia) Hx Liver Disease: No Hx Renal Disease: No Hx Sickle Cell Disease: No Hx Arthritis: No Hx Headaches / Migraines: No Hx Seizures: No Hx Psychiatric Treatment: No Hx Asthma: No Hx COPD: Yes Hx Tuberculosis: No Hx Dementia: No Hx HIV: No Additional medical history: Crohn's disease. DILATED Cardiomyopathy. Life vest in place removed 2017-. hx DVT in LUE. HPLD. chronic pain - Surgical History Hx Coronary Stent: Yes Hx Open Heart Surgery: No (mitral valve replacement (from old chart, pt. unsure)) Hx Pacemaker: Yes Hx Internal Defibrillator: Yes (s/p AVR, MVR, and TV repair) Hx Cholecystectomy: No Hx Appendectomy: No Hx Breast Surgery: No Additional Surgical History: bowel resection- December 2007, (3) Fissurectomies,. Hysterectomy. defibrillator placed 11/2015 ear surgery - Social History Smoking Status: Never Smoker Substance Use Type: None - Medications Home Medications: Home Medications Medication Instructions Recorded Confirmed Last Taken Type Atorvastatin [Lipitor] 40 mg PO QHS #30 06/27/17 06/14/19 06/13/19 Rx Prednisone [predniSONE 10 mg 10 mg PO .TAPER #1 tab.ds.pk 11/10/17 06/14/19 06/13/19 Rx (6-Day Pack, 21 Tabs)] predniSONE [Deltasone] 50 mg PO QDAY #5 tab 01/21/19 06/14/19 06/13/19 Rx AtorvaSTATin [Lipitor] 40 mg PO QHS #30 tablet 06/18/19 Unknown Rx Digoxin [Lanoxin] 0.25 mg PO DAILY@1700 #30 tablet 06/18/19 Unknown Rx Gabapentin 300 mg PO TID #90 cap 06/18/19 Unknown Rx Metoprolol [Lopressor TAB] 50 mg PO Q8H #30 tablet 06/18/19 Unknown Rx Nicotine [Habitrol] 21 mg TD QDAY #30 patch 06/18/19 Unknown Rx Warfarin Sodium [Coumadin] 5 mg PO DAILY #30 tablet 06/18/19 Unknown Rx lisinopriL [Zestril TAB] 10 mg PO QDAY #30 tablet 06/18/19 Unknown Rx methOCARBAMOL [Robaxin TAB] 750 mg PO Q8H PRN #14 tablet 06/18/19 Unknown Rx oxyCODONE [roxiCODONE] 15 mg PO Q6HR #30 tablet 06/18/19 Unknown Rx traMADoL [Ultram 50 MG tab] 50 mg PO Q6HR PRN #20 tablet 06/18/19 Unknown Rx Azithromycin [Zithromax Z-NOAH] 1 dose PO DAILY 5 Days tab 05/30/20 Unknown Rx Docusate Sodium [Colace] 100 mg PO BID PRN #20 capsule 05/30/20 Unknown Rx ED Physical Exam - General Limitations: No Limitations General appearance: alert, in no apparent distress - Head Head exam: Present: atraumatic, normocephalic, other (Negative clayton sign, negative raccoon eyes, no hematoma, no depressions, no CSF otorrhea or rhinorrhea) - Eye Eye exam: Present: normal appearance, PERRL, EOMI Pupils: Present: normal accommodation - ENT ENT exam: Present: normal exam, normal orophraynx, mucous membranes moist - Neck Neck exam: Present: normal inspection, full ROM. Absent: tenderness, meningismus - Respiratory Respiratory exam: Present: normal lung sounds bilaterally. Absent: respiratory distress, wheezes, rales, rhonchi, stridor - Cardiovascular Cardiovascular Exam: Present: regular rate, normal rhythm. Absent: systolic murmur, diastolic murmur, rubs, gallop - GI/Abdominal GI/Abdominal exam: Present: soft, normal bowel sounds. Absent: distended, tenderness, guarding, rebound, rigid, pulsatile mass - Extremities Exam Extremities exam: Present: normal inspection, full ROM, normal capillary refill, other (Pelvis is stable. No tenderness to the bilateral hips, knees, ankles, shoulders, elbows, wrist, no snuffbox tenderness,). Absent: tenderness, calf tenderness (No lower extreme edema, no posterior calf tenderness,) - Back Exam Back exam: Present: normal inspection, full ROM, tenderness (Tenderness palpation to the midline lower lumbar spine. No step-off deformity. Negative straight leg raise. Patient ambulatory with a steady gait), paraspinal tenderness, vertebral tenderness, other (No midline tenderness to the cervical or thoracic spine) - Neurological Exam Neurological exam: Present: alert, oriented X3, CN II-XII intact, normal gait. Absent: motor sensory deficit - Psychiatric Psychiatric exam: Present: normal affect, normal mood - Skin Skin exam: Present: warm, dry, intact, normal color. Absent: rash ED Course Vital Signs 06/28/20 07:23 Temperature 98.9 F Pulse Rate 94 H Respiratory 18 Rate Blood Pressure 149/62 O2 Sat by Pulse 100 Oximetry ED Medical Decision Making - Medical Decision Making Patient presented with low back pain after a ground-level fall. X-ray was ordered however the patient had eloped from the emergency department at around 930 and I was unable to reevaluate the patient. She cannot get x-rays. Critical care attestation.: If time is entered above; I have spent that time in minutes in the direct care of this critically ill patient, excluding procedure time. ED Disposition Clinical Impression: Low back pain Qualifiers: Chronicity: acute Back pain laterality: midline Sciatica presence: without sciatica Qualified Code(s): M54.5 - Low back pain Disposition: Z ELOPED Is pt being admited?: No Condition: Undetermined Time of Disposition: 10:24
== END 2020-06-28 09:37 | disposition left against medical advice (07) ==
LOC: ED 07:18
DX: M54.5 Low back pain (principal); I11.0 Hypertensive heart disease with heart failure; I50.9 Heart failure, unspecified; K21.9 Gastro-esophageal reflux disease without esophagitis; J44.9 Chronic obstructive pulmonary disease, unspecified; Z86.718 Personal history of other venous thrombosis and embolism; Z90.710 Acquired absence of both cervix and uterus; Z98.890 Other specified postprocedural states; Z79.2 Long term (current) use of antibiotics; Z79.899 Other long term (current) drug therapy; W18.30XA Fall on same level, unspecified, initial encounter; Y93.89 Activity, other specified; Y92.89 Other specified places as the place of occurrence of the external cause; Y99.8 Other external cause status
CPT/HCPCS: 99282

== ENCOUNTER 2021-11-22 04:19 | Inpatient (IN) | payer MEDICAID ==
[2021-11-22 08:38] LABS: Mean Corpuscular HGB Conc 30 % (30-34); Mean Corpuscular Volume 87 fl (79-97); Platelet Count 390 K/mm3 (140-440); Red Blood Count 4.14 M/mm3 (3.65-5.03)
[2021-11-22 08:51] LABS: Hemoglobin 10.8 gm/dl (10.1-14.3)
[2021-11-22 08:52] LABS: Hematocrit 35.9 % (30.3-42.9); Red Cell Distribution Width 26.9 % (13.2-15.2)
[2021-11-22 08:58] LABS: Alanine Aminotransferase 8 units/L (7-56); Albumin 3.8 g/dL (3.9-5); BUN/Creatinine Ratio 11; Blood Urea Nitrogen 11 mg/dL (7-17); Calcium 10.4 mg/dL (8.4-10.2); Hemolysis Index 0
[2021-11-22 10:19] LABS: Anisocytosis 3+; Basophils % (Manual) 0 % (0.0-1.8); Eosinophils % (Manual) 0 % (0.0-4.3); Hypochromasia 1+; Ovalocytes 2+; Total Cells Counted 100
[2021-11-22 10:20] LABS: Schistocytes Few; Spherocytes 2+
[2021-11-22 10:21] LABS: Large Platelets 1+; Platelet Estimate Consistent w Auto
--- NOTE | 2021-11-22 10:44 | Electrocardiograph Report ---
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
--- NOTE | 2021-11-22 11:21 | Event Note ---
ED Screening Note ED Screening Note: CAME IN THIS AM CO N/V SHE THOUGHT WAS R/T EATING THE WRONG FOODS AT RECENT [facility]DAY [facility] DIFF RO ACS ATYPICAL PRES SO TROP /EKG ADDED EKG AFIB CVR ON COUMADIN INR ORDERED PT POOR INFORMANT SHE CAN NOT TELL ME ALL OF HER MEDS LIVES ALONE NOK SISTER DENIES CIG/ETOH/DRUGS This initial assessment/diagnostic orders/clinical plan/treatment(s) is/are subject to change based on patients health status, clinical progression and re- assessment by fellow clinical providers in the ED. Further treatment and workup at subsequent clinical providers discretion. Patient/guardian urged not to elope from the ED as their condition may be serious if not clinically assessed and managed. Initial orders include: CHRONES/ RO ACS
[2021-11-22 12:02] LABS: Chol/HDL Ratio 3.85 %
[2021-11-22 12:36] LABS: INR 1.2 (0.87-1.13)
[2021-11-22] MEDS ORDERED: MORPHINE 4 MG/1 ML INJ IV ONE ×2 (13:21→15:13)
[2021-11-22] MEDS ORDERED: dexAMETHasone 20 MG/5 ML VIAL IV ONE (13:21)
[2021-11-22] MEDS ORDERED: ONDANSETRON 4 MG/2 ML INJ IV ONE (13:21)
--- NOTE | 2021-11-22 13:35 | Emergency Department Report ---
ED General Adult HPI - General Chief complaint: Nausea/Vomiting/Diarrhea Stated complaint: N/V 2ND CROHNS DISEASE Time Seen by Provider: 11/22/21 10:39 Source: EMS Mode of arrival: Stretcher Limitations: No Limitations - History of Present Illness Initial comments: The patient presents to the emergency department chief complaint of shortness of breath. Patient states she has a history of COPD and it feels like this is an exacerbation. Patient denies any chest pain, abdominal pain but as mentioned above does endorse shortness of breath. Patient arrived with O2 sats in the upper 80s. She states that she did not try anything at home to improve her symptoms. -: unknown Severity scale (0 -10): 0 Consistency: constant Improves with: none Worsens with: none Associated Symptoms: denies other symptoms Treatments Prior to Arrival: none - Related Data Previous Rx's Medication Instructions Recorded Last Taken Type Prednisone [predniSONE 10 mg 10 mg PO .TAPER #1 tab.ds.pk 11/10/17 06/13/19 Rx (6-Day Pack, 21 Tabs)] predniSONE [Deltasone] 50 mg PO QDAY #5 tab 01/21/19 06/13/19 Rx AtorvaSTATin [Lipitor] 40 mg PO QHS #30 tablet 06/18/19 Unknown Rx Digoxin [Lanoxin] 0.25 mg PO DAILY@1700 #30 tablet 06/18/19 Unknown Rx Gabapentin 300 mg PO TID #90 cap 06/18/19 Unknown Rx Metoprolol [Lopressor TAB] 50 mg PO Q8H #30 tablet 06/18/19 Unknown Rx Nicotine [Habitrol] 21 mg TD QDAY #30 patch 06/18/19 Unknown Rx Warfarin Sodium [Coumadin] 5 mg PO DAILY #30 tablet 06/18/19 Unknown Rx lisinopriL [Zestril TAB] 10 mg PO QDAY #30 tablet 06/18/19 Unknown Rx Docusate Sodium [Colace] 100 mg PO BID PRN #20 capsule 05/30/20 Unknown Rx Allergies Allergy/AdvReac Type Severity Reaction Status Date / Time No Known Allergies Allergy Unverified 06/28/20 07:23 ED Review of Systems ROS: Stated complaint: N/V 2ND CROHNS DISEASE Other details as noted in HPI Comment: All other systems reviewed and negative Constitutional: denies: chills, fever Eyes: denies: eye pain, eye discharge, vision change ENT: denies: ear pain, throat pain Respiratory: denies: cough, shortness of breath, wheezing Cardiovascular: denies: chest pain, palpitations Endocrine: no symptoms reported Gastrointestinal: denies: abdominal pain, nausea, diarrhea Genitourinary: denies: urgency, dysuria, discharge Musculoskeletal: denies: back pain, joint swelling, arthralgia Skin: denies: rash, lesions Neurological: denies: headache, weakness, paresthesias Psychiatric: denies: anxiety, depression Hematological/Lymphatic: denies: easy bleeding, easy bruising ED Past Medical Hx - Past Medical History Hx Hypertension: Yes Hx CVA: No Hx Heart Attack/AMI: No Hx Congestive Heart Failure: Yes Hx Diabetes: No Hx Deep Vein Thrombosis: Yes Hx Pulmonary Embolism: No Hx GERD: Yes (hiatal hernia) Hx Liver Disease: No Hx Renal Disease: No Hx Sickle Cell Disease: No Hx Arthritis: No Hx Headaches / Migraines: No Hx Seizures: No Hx Psychiatric Treatment: No Hx Asthma: No Hx COPD: Yes Hx Tuberculosis: No Hx Dementia: No Hx HIV: No Additional medical history: Crohn's disease. DILATED Cardiomyopathy. Life vest in place removed 2017-. hx DVT in LUE. HPLD. chronic pain - Surgical History Hx Coronary Stent: Yes Hx Open Heart Surgery: No (mitral valve replacement (from old chart, pt. unsur e)) Hx Pacemaker: Yes Hx Internal Defibrillator: Yes (s/p AVR, MVR, and TV repair) Hx Cholecystectomy: No Hx Appendectomy: No Hx Breast Surgery: No Additional Surgical History: bowel resection- December 2007, (3) Fissurectomies,. Hysterectomy. defibrillator placed 11/2015 ear surgery - Social History Smoking Status: Never Smoker Substance Use Type: None - Medications Home Medications: Home Medications Medication Instructions Recorded Confirmed Last Taken Type Prednisone [predniSONE 10 mg 10 mg PO .TAPER #1 tab.ds.pk 11/10/17 06/14/19 06/13/19 Rx (6-Day Pack, 21 Tabs)] predniSONE [Deltasone] 50 mg PO QDAY #5 tab 01/21/19 06/14/19 06/13/19 Rx AtorvaSTATin [Lipitor] 40 mg PO QHS #30 tablet 06/18/19 Unknown Rx Digoxin [Lanoxin] 0.25 mg PO DAILY@1700 #30 tablet 06/18/19 Unknown Rx Gabapentin 300 mg PO TID #90 cap 06/18/19 Unknown Rx Metoprolol [Lopressor TAB] 50 mg PO Q8H #30 tablet 06/18/19 Unknown Rx Nicotine [Habitrol] 21 mg TD QDAY #30 patch 06/18/19 Unknown Rx Warfarin Sodium [Coumadin] 5 mg PO DAILY #30 tablet 06/18/19 Unknown Rx lisinopriL [Zestril TAB] 10 mg PO QDAY #30 tablet 06/18/19 Unknown Rx Docusate Sodium [Colace] 100 mg PO BID PRN #20 capsule 05/30/20 Unknown Rx ED Physical Exam - General Limitations: No Limitations General appearance: alert, in no apparent distress - Head Head exam: Present: atraumatic, normocephalic - Eye Eye exam: Present: normal appearance, PERRL, EOMI - ENT ENT exam: Present: mucous membranes moist - Neck Neck exam: Present: normal inspection - Respiratory Respiratory exam: Present: normal lung sounds bilaterally. Absent: respiratory distress - Cardiovascular Cardiovascular Exam: Present: regular rate, normal rhythm. Absent: systolic murmur, diastolic murmur, rubs, gallop - GI/Abdominal GI/Abdominal exam: Present: soft, normal bowel sounds, other (Abdomen is soft nontender to palpation on exam). Absent: distended, tenderness - Extremities Exam Extremities exam: Present: normal inspection - Back Exam Back exam: Present: normal inspection - Neurological Exam Neurological exam: Present: alert, oriented X3, CN II-XII intact. Absent: motor sensory deficit - Psychiatric Psychiatric exam: Present: normal affect, normal mood - Skin Skin exam: Present: warm, dry, intact, normal color. Absent: rash ED Course Vital Signs 11/22/21 11/22/21 11/22/21 04:34 11:56 12:00 Temperature 98.7 F Pulse Rate 94 H 84 70 Respiratory 16 27 H 22 Rate Blood Pressure 145/75 Blood Pressure 152/92 [Right] O2 Sat by Pulse 97 88 99 Oximetry 11/22/21 11/22/21 11/22/21 12:16 12:30 12:46 Temperature Pulse Rate 79 73 73 Respiratory 29 H 25 H 36 H Rate Blood Pressure 145/75 145/75 145/75 Blood Pressure [Right] O2 Sat by Pulse 99 96 99 Oximetry 0311/22/21 11/22/21 13:00 13:16 13:30 Temperature Pulse Rate 71 82 76 Respiratory 28 H 21 30 H Rate Blood Pressure 173/76 173/76 173/76 Blood Pressure [Right] O2 Sat by Pulse 97 94 94 Oximetry 11/22/21 11/22/21 11/22/21 13:46 14:22 14:30 Temperature Pulse Rate 76 68 74 Respiratory 25 H 28 H Rate Blood Pressure 173/76 158/47 158/47 Blood Pressure [Right] O2 Sat by Pulse 89 83 L Oximetry 11/22/21 11/22/21 11/22/21 14:46 15:00 15:16 Temperature Pulse Rate 74 72 71 Respiratory 19 26 H 31 H Rate Blood Pressure 158/47 159/78 159/78 Blood Pressure [Right] O2 Sat by Pulse 78 L 87 81 L Oximetry 11/22/21 11/22/21 11/22/21 15:30 15:46 16:00 Temperature Pulse Rate 74 71 71 Respiratory 33 H 18 21 Rate Blood Pressure 159/78 159/78 153/75 Blood Pressure [Right] O2 Sat by Pulse 80 L 97 99 Oximetry 11/22/21 11/22/21 11/22/21 16:16 16:30 16:46 Temperature Pulse Rate 73 72 72 Respiratory 24 26 H 21 Rate Blood Pressure 153/75 153/75 153/75 Blood Pressure [Right] O2 Sat by Pulse 77 L 69 L 78 L Oximetry 11/22/21 11/22/21 17:00 17:16 Temperature Pulse Rate 71 74 Respiratory 23 28 H Rate Blood Pressure 135/66 135/66 Blood Pressure [Right] O2 Sat by Pulse Oximetry ED Medical Decision Making - Lab Data Result diagrams: 11/22/21 08:10 11/22/21 08:17 Lab Results 11/22/21 11/22/21 11/22/21 Range/Units 08:10 08:17 08:17 WBC 7.2 (4.5-11.0) K/mm3 RBC 4.14 (3.65-5.03) M/mm3 Hgb 10.8 (10.1-14.3) gm/dl Hct 35.9 (30.3-42.9) % MCV 87 (79-97) fl MCH 26 L (28-32) pg MCHC 30 (30-34) % RDW 26.9 H (13.2-15.2) % Plt Count 390 (140-440) K/mm3 Add Manual Diff Complete Total Counted 100 Seg Neuts % (Manual) 81.0 H (40.0-70.0) % Band Neutrophils % 0 % Lymphocytes % (Manual) 13.0 L (13.4-35.0) % Reactive Lymphs % (Man) 1.0 % Monocytes % (Manual) 5.0 (0.0-7.3) % Eosinophils % (Manual) 0 (0.0-4.3) % Basophils % (Manual) 0 (0.0-1.8) % Metamyelocytes % 0 % Myelocytes % 0 % Promyelocytes % 0 % Blast Cells % 0 % Nucleated RBC % Not Reportable Seg Neutrophils # Man 5.8 (1.8-7.7) K/mm3 Band Neutrophils # 0.0 K/mm3 Lymphocytes # (Manual) 0.9 L (1.2-5.4) K/mm3 Abs React Lymphs (Man) 0.1 K/mm3 Monocytes # (Manual) 0.4 (0.0-0.8) K/mm3 Eosinophils # (Manual) 0.0 (0.0-0.4) K/mm3 Basophils # (Manual) 0.0 (0.0-0.1) K/mm3 Metamyelocytes # 0.0 K/mm3 Myelocytes # 0.0 K/mm3 Promyelocytes # 0.0 K/mm3 Blast Cells # 0.0 K/mm3 WBC Morphology Not Reportable Hypersegmented Neuts Not Reportable Hyposegmented Neuts Not Reportable Hypogranular Neuts Not Reportable Smudge Cells Not Reportable Toxic Granulation Not Reportable Toxic Vacuolation Not Reportable Dohle Bodies Not Reportable Pelger-Huet Anomaly Not Reportable Zee Rods Not Reportable Platelet Estimate Consistent w auto Clumped Platelets Not Reportable Plt Clumps, EDTA Not Reportable Large Platelets 1+ Giant Platelets Not Reportable Platelet Satelliting Not Reportable Plt Morphology Comment Not Reportable RBC Morphology Not Reportable Dimorphic RBCs Not Reportable Polychromasia 1+ Hypochromasia 1+ Poikilocytosis Not Reportable Anisocytosis 3+ Microcytosis Not Reportable Macrocytosis Not Reportable Spherocytes 2+ Pappenheimer Bodies Not Reportable Sickle Cells Not Reportable Target Cells Not Reportable Tear Drop Cells Not Reportable Ovalocytes 2+ Helmet Cells Not Reportable Mendez-[place] Bodies Not Reportable [place] Rings Not Reportable [place] Cells Not Reportable Bite Cells Not Reportable Crenated Cell Not Reportable Elliptocytes Not Reportable Acanthocytes (Spur) Not Reportable Rouleaux Not Reportable Hemoglobin C Crystals Not Reportable Schistocytes Few Malaria parasites Not Reportable Garrett Bodies Not Reportable Hem Pathologist Commnt No PT (12.2-14.9) Sec. INR (0.87-1.13) Sodium 142 (137-145) mmol/L Potassium 4.2 (3.6-5.0) mmol/L Chloride 106.8 (98-107) mmol/L Carbon Dioxide 22 (22-30) mmol/L Anion Gap 17 mmol/L BUN 11 (7-17) mg/dL Creatinine 1.0 (0.6-1.2) mg/dL Estimated GFR > 60 ml/min BUN/Creatinine Ratio 11 % Glucose 89 (65-100) mg/dL Calcium 10.4 H (8.4-10.2) mg/dL Total Bilirubin 2.50 H (0.1-1.2) mg/dL Direct Bilirubin (0-0.2) mg/dL Indirect Bilirubin mg/dL AST 20 (5-40) units/L ALT 8 (7-56) units/L Alkaline Phosphatase 97 (35-129) units/L Troponin T 0.056 H (0.00-0.029) ng/mL NT-Pro-B Natriuret Pep (0-900) pg/mL Total Protein 8.9 H (6.3-8.2) g/dL Albumin 3.8 L (3.9-5) g/dL Albumin/Globulin Ratio 0.7 % Triglycerides 85 (2-149) mg/dL Cholesterol 162 (50-199) mg/dL LDL Cholesterol Direct 101 (50-130) mg/dL HDL Cholesterol 42 (40-59) mg/dL Cholesterol/HDL Ratio 3.85 % Amylase 39 (27-131) units/L Lipase 16 (13-60) units/L 11/22/21 11/22/21 11/22/21 Range/Units 10:44 13:44 13:44 WBC (4.5-11.0) K/mm3 RBC (3.65-5.03) M/mm3 Hgb (10.1-14.3) gm/dl Hct (30.3-42.9) % MCV (79-97) fl MCH (28-32) pg MCHC (30-34) % RDW (13.2-15.2) % Plt Count (140-440) K/mm3 Add Manual Diff Total Counted Seg Neuts % (Manual) (40.0-70.0) % Band Neutrophils % % Lymphocytes % (Manual) (13.4-35.0) % Reactive Lymphs % (Man) % Monocytes % (Manual) (0.0-7.3) % Eosinophils % (Manual) (0.0-4.3) % Basophils % (Manual) (0.0-1.8) % Metamyelocytes % % Myelocytes % % Promyelocytes % % Blast Cells % % Nucleated RBC % Seg Neutrophils # Man (1.8-7.7) K/mm3 Band Neutrophils # K/mm3 Lymphocytes # (Manual) (1.2-5.4) K/mm3 Abs React Lymphs (Man) K/mm3 Monocytes # (Manual) (0.0-0.8) K/mm3 Eosinophils # (Manual) (0.0-0.4) K/mm3 Basophils # (Manual) (0.0-0.1) K/mm3 Metamyelocytes # K/mm3 Myelocytes # K/mm3 Promyelocytes # K/mm3 Blast Cells # K/mm3 WBC Morphology Hypersegmented Neuts Hyposegmented Neuts Hypogranular Neuts Smudge Cells Toxic Granulation Toxic Vacuolation Dohle Bodies Pelger-Huet Anomaly Zee Rods Platelet Estimate Clumped Platelets Plt Clumps, EDTA Large Platelets Giant Platelets Platelet Satelliting Plt Morphology Comment RBC Morphology Dimorphic RBCs Polychromasia Hypochromasia Poikilocytosis Anisocytosis Microcytosis Macrocytosis Spherocytes Pappenheimer Bodies Sickle Cells Target Cells Tear Drop Cells Ovalocytes Helmet Cells Mendez-[place] Bodies Samaria Rings [place] Cells Bite Cells Crenated Cell Elliptocytes Acanthocytes (Spur) Rouleaux Hemoglobin C Crystals Schistocytes Malaria parasites Garrett Bodies Hem Pathologist Commnt PT 16.6 H (12.2-14.9) Sec. INR 1.20 H (0.87-1.13) Sodium (137-145) mmol/L Potassium (3.6-5.0) mmol/L Chloride (98-107) mmol/L Carbon Dioxide (22-30) mmol/L Anion Gap mmol/L BUN (7-17) mg/dL Creatinine (0.6-1.2) mg/dL Estimated GFR ml/min BUN/Creatinine Ratio % Glucose (65-100) mg/dL Calcium (8.4-10.2) mg/dL Total Bilirubin (0.1-1.2) mg/dL Direct Bilirubin (0-0.2) mg/dL Indirect Bilirubin mg/dL AST (5-40) units/L ALT (7-56) units/L Alkaline Phosphatase (35-129) units/L Troponin T 0.042 H D (0.00-0.029) ng/mL NT-Pro-B Natriuret Pep 6072 H (0-900) pg/mL Total Protein (6.3-8.2) g/dL Albumin (3.9-5) g/dL Albumin/Globulin Ratio % Triglycerides (2-149) mg/dL Cholesterol (50-199) mg/dL LDL Cholesterol Direct (50-130) mg/dL HDL Cholesterol (40-59) mg/dL Cholesterol/HDL Ratio % Amylase (27-131) units/L Lipase (13-60) units/L 03/25/22 Range/Units 13:44 WBC (4.5-11.0) K/mm3 RBC (3.65-5.03) M/mm3 Hgb (10.1-14.3) gm/dl Hct (30.3-42.9) % MCV (79-97) fl MCH (28-32) pg MCHC (30-34) % RDW (13.2-15.2) % Plt Count (140-440) K/mm3 Add Manual Diff Total Counted Seg Neuts % (Manual) (40.0-70.0) % Band Neutrophils % % Lymphocytes % (Manual) (13.4-35.0) % Reactive Lymphs % (Man) % Monocytes % (Manual) (0.0-7.3) % Eosinophils % (Manual) (0.0-4.3) % Basophils % (Manual) (0.0-1.8) % Metamyelocytes % % Myelocytes % % Promyelocytes % % Blast Cells % % Nucleated RBC % Seg Neutrophils # Man (1.8-7.7) K/mm3 Band Neutrophils # K/mm3 Lymphocytes # (Manual) (1.2-5.4) K/mm3 Abs React Lymphs (Man) K/mm3 Monocytes # (Manual) (0.0-0.8) K/mm3 Eosinophils # (Manual) (0.0-0.4) K/mm3 Basophils # (Manual) (0.0-0.1) K/mm3 Metamyelocytes # K/mm3 Myelocytes # K/mm3 Promyelocytes # K/mm3 Blast Cells # K/mm3 WBC Morphology Hypersegmented Neuts Hyposegmented Neuts Hypogranular Neuts Smudge Cells Toxic Granulation Toxic Vacuolation Dohle Bodies Pelger-Huet Anomaly Zee Rods Platelet Estimate Clumped Platelets Plt Clumps, EDTA Large Platelets Giant Platelets Platelet Satelliting Plt Morphology Comment RBC Morphology Dimorphic RBCs Polychromasia Hypochromasia Poikilocytosis Anisocytosis Microcytosis Macrocytosis Spherocytes Pappenheimer Bodies Sickle Cells Target Cells Tear Drop Cells Ovalocytes Helmet Cells Mendez-[place] Bodies Samaria Rings [place] Cells Bite Cells Crenated Cell Elliptocytes Acanthocytes (Spur) Rouleaux Hemoglobin C Crystals Schistocytes Malaria parasites Garrett Bodies Hem Pathologist Commnt PT (12.2-14.9) Sec. INR (0.87-1.13) Sodium (137-145) mmol/L Potassium (3.6-5.0) mmol/L Chloride (98-107) mmol/L Carbon Dioxide (22-30) mmol/L Anion Gap mmol/L BUN (7-17) mg/dL Creatinine (0.6-1.2) mg/dL Estimated GFR ml/min BUN/Creatinine Ratio % Glucose (65-100) mg/dL Calcium (8.4-10.2) mg/dL Total Bilirubin 2.10 H (0.1-1.2) mg/dL Direct Bilirubin 0.5 H (0-0.2) mg/dL Indirect Bilirubin 1.6 mg/dL AST (5-40) units/L ALT (7-56) units/L Alkaline Phosphatase (35-129) units/L Troponin T (0.00-0.029) ng/mL NT-Pro-B Natriuret Pep (0-900) pg/mL Total Protein (6.3-8.2) g/dL Albumin (3.9-5) g/dL Albumin/Globulin Ratio % Triglycerides (2-149) mg/dL Cholesterol (50-199) mg/dL LDL Cholesterol Direct (50-130) mg/dL HDL Cholesterol (40-59) mg/dL Cholesterol/HDL Ratio % Amylase (27-131) units/L Lipase (13-60) units/L - EKG Data -: EKG Interpreted by Me Rate: normal - EKG Data Interpretation: other (A. fib with a rate of 70) - Radiology Data Radiology results: pending - Medical Decision Making Upon arrival the patient only endorse having a history of COPD thus work-up was centered around that initially. Patient received continuous breathing treatment and steroids initially. Further investigation it was determined that the patient does have a history congestive heart failure and a BNP was obtained that showed a level of greater than 6500. Patient was given IV Lasix and will be admitted for her CHF exacerbation Critical Care Time: Yes Critical care time in (mins) excluding proc time.: 35 Critical care attestation.: If time is entered above; I have spent that time in minutes in the direct care of this critically ill patient, excluding procedure time. ED Disposition Clinical Impression: Acute exacerbation of congestive heart failure Disposition: ADMITTED INPATIENT Is pt being admited?: Yes Does the pt Need Aspirin: No Condition: Fair Referrals: RENATO SOSA MD [Primary Care Provider] - 3-5 Days
[2021-11-22 14:46] LABS: Bilirubin,Direct 0.5 mg/dL (0-0.2)
[2021-11-22] MEDS ORDERED: IPRATROPIUM/ALBUTEROL SULFATE 3 ML AMPUL.NEB IH ONE (15:14)
[2021-11-22] MEDS ORDERED: FUROSEMIDE 40 MG/4 ML INJ IV ONE (17:36)
--- NOTE | 2021-11-22 18:02 | XRay Report ---
CHEST 1 VIEW 11/22/2021 5:41 PM INDICATION / CLINICAL INFORMATION: Shortness of breath. COMPARISON: None available. FINDINGS: SUPPORT DEVICES: Stable, satisfactory device positioning. HEART / MEDIASTINUM: Cardiomegaly LUNGS / PLEURA: Diffuse opacities in bilateral lungs have increased No pneumothorax. ADDITIONAL FINDINGS: No significant additional findings. IMPRESSION: 1. Diffuse bilateral pulmonary opacities have increased. Cardiomegaly Signer Name: Oni Denton MD Signed: 11/22/2021 5:57 PM Workstation Name: [id number]
--- NOTE | 2021-11-22 21:05 | History and Physical Report ---
History of Present Illness Date of examination: 11/22/21 Date of admission: 11/22/2021 Chief complaint: Increasing shortness of breath and low oxygen saturations 1 day History of present illness: 56-year-old female with history of hypertension, COPD, peripheral neuropathy, hyperlipidemia and atrial fibrillation comes in for increasing shortness of breath and wheezing. Initial oxygen saturations are in the low 80s. Improved with oxygen supplementation. Patient has orthopnea and class IV NYHA symptoms. Patient says she never smoked but exposed to secondhand smoke. No fever or chills. - Past Medical History --Hypertension: Yes --Congestive Heart Failure: Yes --Deep Vein Thrombosis: Yes --GERD: Yes (hiatal hernia) --COPD: Yes --Additional medical history: Crohn's disease. DILATED Cardiomyopathy. Life vest in place removed 2017-. hx DVT in LUE. HPLD. chronic pain - Surgical History --Coronary Stent: Yes --Open Heart Surgery: No (mitral valve replacement (from old chart, pt. unsure)) --Pacemaker: Yes --Internal Defibrillator: Yes (s/p AVR, MVR, and TV repair) --Additional Surgical History: bowel resection- December 2007, (3) Fissurectomies,. Hysterectomy. defibrillator placed 11/2015 ear surgery - Social History --Smoking Status: Conflicting history--to be reverified by primary team Patient was on nicotine patch Patient on prednisone high dose --Substance Use Type: None -Family history --Htn Review of Systems ROS: Stated complaint: N/V 2ND CROHNS DISEASE Other details as noted in HPI Comment: All other systems reviewed and negative Constitutional: denies: chills, fever Eyes: denies: eye pain, eye discharge, vision change ENT: denies: ear pain, throat pain Respiratory: denies: cough, shortness of breath, wheezing Cardiovascular: denies: chest pain, palpitations Endocrine: no symptoms reported Gastrointestinal: denies: abdominal pain, nausea, diarrhea Genitourinary: denies: urgency, dysuria, discharge Musculoskeletal: denies: back pain, joint swelling, arthralgia Skin: denies: rash, lesions Neurological: denies: headache, weakness, paresthesias Psychiatric: denies: anxiety, depression Hematological/Lymphatic: denies: easy bleeding, easy bruising Medications and Allergies Allergies Allergy/AdvReac Type Severity Reaction Status Date / Time No Known Allergies Allergy Verified 11/22/21 21:14 Home Medications Medication Instructions Recorded Confirmed Last Taken Type Prednisone [predniSONE 10 mg 10 mg PO .TAPER #1 tab.ds.pk 11/10/17 11/22/21 06/13/19 Rx (6-Day Pack, 21 Tabs)] predniSONE [Deltasone] 50 mg PO QDAY #5 tab 01/21/19 11/22/21 06/13/19 Rx AtorvaSTATin [Lipitor] 40 mg PO QHS #30 tablet 06/18/19 11/22/21 11/21/21 Rx Digoxin [Lanoxin] 0.25 mg PO DAILY@1700 #30 tablet 06/18/19 11/22/21 11/21/21 Rx Gabapentin 300 mg PO TID #90 cap 06/18/19 11/22/21 11/21/21 Rx Metoprolol [Lopressor TAB] 50 mg PO Q8H #30 tablet 06/18/19 11/22/21 11/21/21 Rx Nicotine [Habitrol] 21 mg TD QDAY #30 patch 06/18/19 11/22/21 Unknown Rx Warfarin Sodium [Coumadin] 5 mg PO DAILY #30 tablet 06/18/19 11/22/21 11/21/21 Rx lisinopriL [Zestril TAB] 10 mg PO QDAY #30 tablet 06/18/19 11/22/21 11/21/21 Rx Docusate Sodium [Colace] 100 mg PO BID PRN #20 capsule 05/30/20 11/22/21 Unknown Rx Exam - Constitutional Vitals: Temp Pulse Resp BP Pulse Ox 98.7 F 71 21 149/77 96 11/22/21 19:56 11/22/21 19:56 11/22/21 19:56 11/22/21 19:56 11/22/21 19:56 General appearance: Present: no acute distress, well-nourished - EENT Eyes: Present: PERRL ENT: hearing intact, clear oral mucosa - Neck Neck: Present: supple, normal ROM - Respiratory Respiratory effort: normal Respiratory: bilateral: diminished, rhonchi - Cardiovascular Heart rate: 78 Rhythm: regular Heart Sounds: Present: S1 & S2. Absent: rub, click - Extremities Extremities: no ischemia, pulses intact, pulses symmetrical, No edema Peripheral Pulses: within normal limits - Abdominal General gastrointestinal: Present: soft, non-tender, non-distended, normal bowel sounds Female genitourinary: Present: normal - Integumentary Integumentary: Present: clear, warm, dry - Musculoskeletal Musculoskeletal: gait normal, strength equal bilaterally - Psychiatric Psychiatric: appropriate mood/affect, intact judgment & insight - Neurologic Neurologic: CNII-XII intact, moves all extremities HEART Score - HEART Score History: Moderately suspicious Age: 45-65 Risk factors: > 3 risk factors or hx of atherosclerotic disease Troponin: Troponin T 0.042 ng/mL (0.00-0.029) H D 11/22/21 13:44 Troponin: < normal limit - Critical Actions Critical Actions: 4-6 pts:12-16.6% risk of adverse cardiac event. Should be admitted Results - Labs CBC & Chem 7: 11/22/21 08:10 11/22/21 08:17 Labs: Laboratory Last Values WBC 7.2 K/mm3 (4.5-11.0) 11/22/21 08:10 RBC 4.14 M/mm3 (3.65-5.03) 11/22/21 08:10 Hgb 10.8 gm/dl (10.1-14.3) 11/22/21 08:10 Hct 35.9 % (30.3-42.9) 11/22/21 08:10 MCV 87 fl (79-97) 11/22/21 08:10 MCH 26 pg (28-32) L 11/22/21 08:10 MCHC 30 % (30-34) 11/22/21 08:10 RDW 26.9 % (13.2-15.2) H 11/22/21 08:10 Plt Count 390 K/mm3 (140-440) 11/22/21 08:10 Add Manual Diff Complete 11/22/21 08:10 Total Counted 100 11/22/21 08:10 Seg Neuts % (Manual) 81.0 % (40.0-70.0) H 11/22/21 08:10 Band Neutrophils % 0 % 11/22/21 08:10 Lymphocytes % (Manual) 13.0 % (13.4-35.0) L 11/22/21 08:10 Reactive Lymphs % (Man) 1.0 % 11/22/21 08:10 Monocytes % (Manual) 5.0 % (0.0-7.3) 11/22/21 08:10 Eosinophils % (Manual) 0 % (0.0-4.3) 11/22/21 08:10 Basophils % (Manual) 0 % (0.0-1.8) 11/22/21 08:10 Metamyelocytes % 0 % 11/22/21 08:10 Myelocytes % 0 % 11/22/21 08:10 Promyelocytes % 0 % 11/22/21 08:10 Blast Cells % 0 % 11/22/21 08:10 Nucleated RBC % Not Reportable 11/22/21 08:10 Seg Neutrophils # Man 5.8 K/mm3 (1.8-7.7) 11/22/21 08:10 Band Neutrophils # 0.0 K/mm3 11/22/21 08:10 Lymphocytes # (Manual) 0.9 K/mm3 (1.2-5.4) L 11/22/21 08:10 Abs React Lymphs (Man) 0.1 K/mm3 11/22/21 08:10 Monocytes # (Manual) 0.4 K/mm3 (0.0-0.8) 11/22/21 08:10 Eosinophils # (Manual) 0.0 K/mm3 (0.0-0.4) 11/22/21 08:10 Basophils # (Manual) 0.0 K/mm3 (0.0-0.1) 11/22/21 08:10 Metamyelocytes # 0.0 K/mm3 11/22/21 08:10 Myelocytes # 0.0 K/mm3 11/22/21 08:10 Promyelocytes # 0.0 K/mm3 11/22/21 08:10 Blast Cells # 0.0 K/mm3 11/22/21 08:10 WBC Morphology Not Reportable 11/22/21 08:10 Hypersegmented Neuts Not Reportable 11/22/21 08:10 Hyposegmented Neuts Not Reportable 11/22/21 08:10 Hypogranular Neuts Not Reportable 11/22/21 08:10 Smudge Cells Not Reportable 11/22/21 08:10 Toxic Granulation Not Reportable 11/22/21 08:10 Toxic Vacuolation Not Reportable 11/22/21 08:10 Dohle Bodies Not Reportable 11/22/21 08:10 Pelger-Huet Anomaly Not Reportable 11/22/21 08:10 Zee Rods Not Reportable 11/22/21 08:10 Platelet Estimate Consistent w auto 11/22/21 08:10 Clumped Platelets Not Reportable 11/22/21 08:10 Plt Clumps, EDTA Not Reportable 11/22/21 08:10 Large Platelets 1+ 11/22/21 08:10 Giant Platelets Not Reportable 11/22/21 08:10 Platelet Satelliting Not Reportable 11/22/21 08:10 Plt Morphology Comment Not Reportable 11/22/21 08:10 RBC Morphology Not Reportable 11/22/21 08:10 Dimorphic RBCs Not Reportable 11/22/21 08:10 Polychromasia 1+ 11/22/21 08:10 Hypochromasia 1+ 11/22/21 08:10 Poikilocytosis Not Reportable 11/22/21 08:10 Anisocytosis 3+ 11/22/21 08:10 Microcytosis Not Reportable 11/22/21 08:10 Macrocytosis Not Reportable 11/22/21 08:10 Spherocytes 2+ 11/22/21 08:10 Pappenheimer Bodies Not Reportable 11/22/21 08:10 Sickle Cells Not Reportable 11/22/21 08:10 Target Cells Not Reportable 11/22/21 08:10 Tear Drop Cells Not Reportable 11/22/21 08:10 Ovalocytes 2+ 11/22/21 08:10 Helmet Cells Not Reportable 11/22/21 08:10 [place] Bodies Not Reportable 11/22/21 08:10 [place] Rings Not Reportable 11/22/21 08:10 [place] Cells Not Reportable 11/22/21 08:10 Bite Cells Not Reportable 11/22/21 08:10 Crenated Cell Not Reportable 11/22/21 08:10 Elliptocytes Not Reportable 11/22/21 08:10 Acanthocytes (Spur) Not Reportable 11/22/21 08:10 Rouleaux Not Reportable 11/22/21 08:10 Hemoglobin C Crystals Not Reportable 11/22/21 08:10 Schistocytes Few 11/22/21 08:10 Malaria parasites Not Reportable 11/22/21 08:10 [place] Bodies Not Reportable 11/22/21 08:10 Hem Pathologist Commnt No 11/22/21 08:10 PT 16.6 Sec. (12.2-14.9) H 11/22/21 10:44 INR 1.20 (0.87-1.13) H 11/22/21 10:44 Sodium 142 mmol/L (137-145) 11/22/21 08:17 Potassium 4.2 mmol/L (3.6-5.0) 11/22/21 08:17 Chloride 106.8 mmol/L (98-107) 11/22/21 08:17 Carbon Dioxide 22 mmol/L (22-30) 11/22/21 08:17 Anion Gap 17 mmol/L 11/22/21 08:17 BUN 11 mg/dL (7-17) 11/22/21 08:17 Creatinine 1.0 mg/dL (0.6-1.2) 11/22/21 08:17 Estimated GFR > 60 ml/min 11/22/21 08:17 BUN/Creatinine Ratio 11 % 11/22/21 08:17 Glucose 89 mg/dL (65-100) 11/22/21 08:17 Calcium 10.4 mg/dL (8.4-10.2) H 11/22/21 08:17 Total Bilirubin 2.10 mg/dL (0.1-1.2) H 11/22/21 13:44 Direct Bilirubin 0.5 mg/dL (0-0.2) H 11/22/21 13:44 Indirect Bilirubin 1.6 mg/dL 11/22/21 13:44 AST 20 units/L (5-40) 11/22/21 08:17 ALT 8 units/L (7-56) 11/22/21 08:17 Alkaline Phosphatase 97 units/L (35-129) 11/22/21 08:17 Troponin T 0.042 ng/mL (0.00-0.029) H D 11/22/21 13:44 NT-Pro-B Natriuret Pep 6072 pg/mL (0-900) H 11/22/21 13:44 Total Protein 8.9 g/dL (6.3-8.2) H 11/22/21 08:17 Albumin 3.8 g/dL (3.9-5) L 11/22/21 08:17 Albumin/Globulin Ratio 0.7 % 11/22/21 08:17 Triglycerides 85 mg/dL (2-149) 11/22/21 08:17 Cholesterol 162 mg/dL (50-199) 11/22/21 08:17 LDL Cholesterol Direct 101 mg/dL (50-130) 11/22/21 08:17 HDL Cholesterol 42 mg/dL (40-59) 11/22/21 08:17 Cholesterol/HDL Ratio 3.85 % 11/22/21 08:17 Amylase 39 units/L (27-131) 11/22/21 08:17 Lipase 16 units/L (13-60) 11/22/21 08:17 Short CBC 11/22/21 Range/Units 08:10 WBC 7.2 (4.5-11.0) K/mm3 Hgb 10.8 (10.1-14.3) gm/dl Hct 35.9 (30.3-42.9) % Plt Count 390 (140-440) K/mm3 BMP 11/22/21 08:17 Sodium 142 Potassium 4.2 Chloride 106.8 Carbon Dioxide 22 BUN 11 Creatinine 1.0 Glucose 89 Calcium 10.4 H Cardiac Enzymes 11/22/21 11/22/21 Range/Units 08:17 13:44 Troponin T 0.056 H 0.042 H D (0.00-0.029) ng/mL Liver Function 11/22/21 11/22/21 Range/Units 08:17 13:44 Total Bilirubin 2.50 H 2.10 H (0.1-1.2) mg/dL Direct Bilirubin 0.5 H (0-0.2) mg/dL AST 20 (5-40) units/L ALT 8 (7-56) units/L Alkaline Phosphatase 97 (35-129) units/L Albumin 3.8 L (3.9-5) g/dL - Imaging and Cardiology EKG: report reviewed Imaging and Cardiology: EKG Atrial fibrillation/flutter with premature ventricular complexes Heart rate of 72/min Assessment and Plan Advance Directives: Yes (Full code) VTE prophylaxis?: Chemical Plan of care discussed with patient/family: Yes - Patient Problems (1) Acute respiratory failure with hypoxia Current Visit: Yes Status: Acute Plan to address problem: Probably secondary to CHF exacerbation with underlying COPD IV Lasix and bronchodilators Aldactone Echocardiogram for ejection fraction and wall motion abnormalities BNP is elevated (2) Acute exacerbation of CHF (congestive heart failure) Current Visit: Yes Status: Acute Qualifiers: Heart failure type: combined systolic and diastolic Qualified Code(s): I50.43 - Acute on chronic combined systolic (congestive) and diastolic (anisha estive) heart failure Plan to address problem: Echocardiogram for ejection fraction was in motion abnormalities and valve function IV Lasix and Aldactone Cardiology consult Intake and output Daily weights (3) COPD exacerbation Current Visit: Yes Status: Acute Plan to address problem: Pulmonary Dr. Goldberg consulted Patient on high-dose steroids for unknown reason Needs pulmonary function studies as outpatient (4) Hypertension Current Visit: Yes Status: Chronic Qualifiers: Hypertension type: primary hypertension Qualified Code(s): I10 - Essential (primary) hypertension Plan to address problem: Continue antihypertensive and adjust medications as tolerated (5) Chronic atrial fibrillation Current Visit: Yes Status: Chronic Plan to address problem: On anticoagulation Monitor INR (6) Hyperlipidemia Current Visit: Yes Status: Chronic Qualifiers: Hyperlipidemia type: mixed hyperlipidemia Qualified Code(s): E78.2 - Mixed hyperlipidemia Plan to address problem: Continue statins (7) DVT prophylaxis Current Visit: No Status: Acute Plan to address problem: Coumadin GI prophylaxis (8) Advance care planning Current Visit: Yes Status: Acute Plan to address problem: Disease education conducted, care plan discussed, diagnosis discussed, prognosis discussed. Patient is full code. Patient acknowledges understanding and agreement with care plan. +30 minutes.
[2021-11-22] MEDS ORDERED: DOCUSATE SODIUM 100 MG CAP PO PRN (21:12)
[2021-11-22] MEDS ORDERED: ONDANSETRON 4 MG/2 ML INJ IV PRN (21:14)
[2021-11-22] MEDS ORDERED: ACETAMINOPHEN 325 MG TAB PO PRN (21:14)
[2021-11-22] MEDS ORDERED: oxyCODONE /ACETAMINOPHEN 5-325MG TAB PO PRN (21:24)
[2021-11-22] MEDS ORDERED: IPRATROPIUM/ALBUTEROL SULFATE 3 ML AMPUL.NEB IH PRN (21:27)
[2021-11-22] MEDS ORDERED: ALBUTEROL 2.5 MG/3 ML NEBU IH PRN (21:39)
[2021-11-22] MEDS ORDERED: AZITHROMYCIN/NS 500 MG/250 ML 500 MG/250 ML BAG IV SCH (22:00)
[2021-11-22] MEDS: AZITHROMYCIN/NS 500 MG/250 ML 500 MG/250 ML BAG IV SCH (22:37)
[2021-11-22] MEDS: cefTRIAXone/NS 2 GM/100 ML 2 GM/100 ML BAG IV SCH (22:37)
[2021-11-22] MEDS: METOPROLOL TARTRATE 50 MG TAB PO SCH (22:38)
[2021-11-22] MEDS: methylPREDNISolone Sod Succinate 125 MG/2 ML INJ IV SCH (22:38)
[2021-11-22] MEDS: NICOTINE 21 MG/24 HR PATCH TD SCH (22:38)
[2021-11-22] MEDS: HEPARIN 5,000 UNIT/1 ML VIAL SUB-Q SCH (22:39)
[2021-11-22] MEDS: MORPHINE 2 MG/1 ML INJ IV PRN (22:40)
--- NOTE | 2021-11-23 04:03 | Consultation ---
History of Present Illness Consult date: 11/23/21 Requesting physician: GABRIELA WILKINSON Reason for consult: COPD History of present illness: 56 y/o female with crohn's and cardiac disease admitted based on ED documentation for COPD exacerbation. patient has no documented history of COPD and has been admitted several times before with shortness of breath and only seen by cards on those admission. She is not on any outpatient COPD therapy as well. her steroids are for her Crohn's. Remainder is negative. BNP is >6K Past History Past Medical History: CAD, heart failure Medications and Allergies Allergies Allergy/AdvReac Type Severity Reaction Status Date / Time No Known Allergies Allergy Verified 11/22/21 21:14 Home Medications Medication Instructions Recorded Confirmed Last Taken Type Prednisone [predniSONE 10 mg 10 mg PO .TAPER #1 tab.ds.pk 11/10/17 11/22/21 06/13/19 Rx (6-Day Pack, 21 Tabs)] predniSONE [Deltasone] 50 mg PO QDAY #5 tab 01/21/19 11/22/21 06/13/19 Rx AtorvaSTATin [Lipitor] 40 mg PO QHS #30 tablet 06/18/19 11/22/21 11/21/21 Rx Digoxin [Lanoxin] 0.25 mg PO DAILY@1700 #30 tablet 06/18/19 11/22/21 11/21/21 Rx Gabapentin 300 mg PO TID #90 cap 06/18/19 11/22/21 11/21/21 Rx Metoprolol [Lopressor TAB] 50 mg PO Q8H #30 tablet 06/18/19 11/22/21 11/21/21 Rx Nicotine [Habitrol] 21 mg TD QDAY #30 patch 06/18/19 11/22/21 Unknown Rx Warfarin Sodium [Coumadin] 5 mg PO DAILY #30 tablet 06/18/19 11/22/21 11/21/21 Rx lisinopriL [Zestril TAB] 10 mg PO QDAY #30 tablet 06/18/19 11/22/21 11/21/21 Rx Docusate Sodium [Colace] 100 mg PO BID PRN #20 capsule 05/30/20 11/22/21 Unknown Rx Active Meds: Active Medications Acetaminophen (Acetaminophen 325 Mg Tab) 650 mg PO Q4H PRN PRN Reason: Pain MILD(1-3)/Fever >100.5/VACA Albuterol (Albuterol 2.5 Mg/3 Ml Nebu) 2.5 mg IH Q3HRT PRN PRN Reason: Wheezing Albuterol/Ipratropium (Ipratropium/Albuterol Sulfate 3 Ml Ampul.Neb) 1 ampul IH QIDRT HERACLIO Atorvastatin Calcium (Atorvastatin 40 Mg Tab) 40 mg PO QHS [facility] Last Admin: 11/22/21 22:38 Dose: 40 mg Digoxin (Digoxin 0.25 Mg Tab) 0.25 mg PO DAILY@1700 [facility] Docusate Sodium (Docusate Sodium 100 Mg Cap) 100 mg PO BID PRN PRN Reason: Constipation Furosemide (Furosemide 40 Mg/4 Ml Inj) 40 mg IV QDAY@0600 [facility] Gabapentin (Gabapentin 300 Mg Cap) 300 mg PO TID [facility] Heparin Sodium (Porcine) (Heparin 5,000 Unit/1 Ml Vial) 5,000 unit SUB-Q Q12HR [facility] Last Admin: 11/22/21 22:39 Dose: 5,000 unit Ceftriaxone Sodium (Rocephin/Ns 2 Gm/100 Ml) 2 gm in 100 mls @ 200 mls/hr IV Q24H [facility]; Protocol Last Admin: 11/22/21 22:37 Dose: 200 mls/hr Azithromycin (Zithromax/Ns) 500 mg in 250 mls @ 250 mls/hr IV Q24H [facility] Last Admin: 11/22/21 22:37 Dose: 250 mls/hr Lisinopril (Lisinopril 10 Mg Tab) 10 mg PO QDAY [facility] Methylprednisolone Sodium Succinate (Methylprednisolone Sod Succinate 125 Mg/2 Ml Inj) 80 mg IV Q8HR [facility] Last Admin: 11/22/21 22:38 Dose: 80 mg Metoprolol Tartrate (Metoprolol Tartrate 50 Mg Tab) 50 mg PO Q8H [facility] Last Admin: 11/22/21 22:38 Dose: 50 mg Morphine Sulfate (Morphine 2 Mg/1 Ml Inj) 2 mg IV Q4H PRN PRN Reason: Pain, Moderate (4-6) Last Admin: 11/22/21 22:40 Dose: 2 mg Nicotine (Nicotine 21 Mg/24 Hr Patch) 21 mg TD QDAY [facility] Last Admin: 11/22/21 22:38 Dose: 21 mg Ondansetron HCl (Ondansetron 4 Mg/2 Ml Inj) 4 mg IV Q8H PRN PRN Reason: Nausea And Vomiting Oxycodone/Acetaminophen (Oxycodone /Acetaminophen 5-325mg Tab) 1 tab PO Q6H PRN PRN Reason: Pain, Moderate (4-6) Sodium Chloride (Sodium Chloride 0.9% 10 Ml Flush Syringe) 10 ml IV BID [facility] Last Admin: 11/22/21 22:39 Dose: 10 ml Sodium Chloride (Sodium Chloride 0.9% 10 Ml Flush Syringe) 10 ml IV PRN PRN PRN Reason: LINE FLUSH Spironolactone (Spironolactone 25 Mg Tab) 25 mg PO QDAY [facility] Warfarin Sodium (Warfarin 5 Mg Tab) 5 mg PO DAILY@1700 [facility]; Protocol Review of Systems All systems: negative Physical Examination Vital signs: Vital Signs Temp Pulse Resp BP Pulse Ox 98.7 F 94 H 16 152/92 97 11/22/21 04:34 11/22/21 04:34 11/22/21 04:34 11/22/21 04:34 11/22/21 04:34 Results - Laboratory Findings CBC and BMP: 11/22/21 08:10 11/22/21 08:17 PT/INR, D-dimer PT 16.6 Sec. (12.2-14.9) H 11/22/21 10:44 INR 1.20 (0.87-1.13) H 11/22/21 10:44 Abnormal lab findings: Abnormal Labs 11/22/21 11/22/21 11/22/21 08:10 08:17 08:17 MCH 26 L RDW 26.9 H Seg Neuts % (Manual) 81.0 H Lymphocytes % (Manual) 13.0 L Lymphocytes # (Manual) 0.9 L PT INR Calcium 10.4 H Total Bilirubin 2.50 H Direct Bilirubin Troponin T 0.056 H NT-Pro-B Natriuret Pep Total Protein 8.9 H Albumin 3.8 L 11/22/21 11/22/21 11/22/21 10:44 13:44 13:44 MCH RDW Seg Neuts % (Manual) Lymphocytes % (Manual) Lymphocytes # (Manual) PT 16.6 H INR 1.20 H Calcium Total Bilirubin Direct Bilirubin Troponin T 0.042 H D NT-Pro-B Natriuret Pep 6072 H Total Protein Albumin 11/22/21 13:44 MCH RDW Seg Neuts % (Manual) Lymphocytes % (Manual) Lymphocytes # (Manual) PT INR Calcium Total Bilirubin 2.10 H Direct Bilirubin 0.5 H Troponin T NT-Pro-B Natriuret Pep Total Protein Albumin - Diagnostic Findings Chest x-ray: image reviewed (cardiomegaly with vascular congestion) Assessment and Plan 56 y/o female with CHF exacerbation and acute respiratory failure secondary to CHF 1. Diuresis as tolerated 2. Supplemental oxygen to keep sats >88%, suggest walk test prior to discharge. CHF will work for diagnosis. 3. Last echo in our system from 2019 was 30-35% 4. Feel this is most likely all CHF, will sign off.
[2021-11-23] MEDS: MORPHINE 2 MG/1 ML INJ IV PRN ×5 (05:00→21:50)
[2021-11-23] MEDS: methylPREDNISolone Sod Succinate 125 MG/2 ML INJ IV SCH ×2 (05:03→13:21)
[2021-11-23] MEDS: FUROSEMIDE 40 MG/4 ML INJ IV SCH (05:03)
[2021-11-23] MEDS: METOPROLOL TARTRATE 50 MG TAB PO SCH ×3 (05:06→22:00)
[2021-11-23] MEDS: GABAPENTIN 300 MG CAP PO SCH ×3 (07:56→20:28)
[2021-11-23 08:27] LABS: Bacteria,Urine 1+ /HPF (Negative); Bilirubin,Urine NEG (Negative); Blood,Urine NEG (Negative); Color,Urine Yellow (Yellow); Hyaline Casts,Urine 1 /LPF; Protein,Urine <15 mg/dL mg/dL (Negative); RBC,Urine < 1.0 /HPF (0.0-6.0); Urobilinogen,Urine < 2.0 mg/dL (<2.0)
[2021-11-23] MEDS: IPRATROPIUM/ALBUTEROL SULFATE 3 ML AMPUL.NEB IH SCH ×4 (08:52→20:40)
[2021-11-23] MEDS: LISINOPRIL 10 MG TAB PO SCH (09:10)
[2021-11-23] MEDS: NICOTINE 21 MG/24 HR PATCH TD SCH ×2 (09:10→19:12)
[2021-11-23] MEDS: SPIRONOLACTONE 25 MG TAB PO SCH (09:10)
[2021-11-23] MEDS: HEPARIN 5,000 UNIT/1 ML VIAL SUB-Q SCH (09:10)
--- NOTE | 2021-11-23 09:26 | Progress Note ---
Assessment and Plan Assessment and plan: --Acute respiratory failure with hypoxia Current Visit: Yes Status: Acute Probably secondary to CHF exacerbation with underlying COPD IV Lasix and bronchodilators, Aldactone Echocardiogram for ejection fraction and wall motion abnormalities BNP is elevated --Acute exacerbation of CHF (congestive heart failure) Current Visit: Yes Status: Acute Echocardiogram for ejection fraction was in motion abnormalities and valve function IV Lasix and Aldactone Cardiology consult, Intake and output Daily weights --COPD exacerbation Current Visit: Yes Status: Acute Pulmonary Dr. Goldberg consulted Patient on high-dose steroids for unknown reason Needs pulmonary function studies as outpatient --Hypertension Current Visit: Yes Status: Chronic Continue antihypertensive and adjust medications as tolerated --Chronic atrial fibrillation Current Visit: Yes Status: Chronic On anticoagulation Monitor INR -- Hyperlipidemia Current Visit: Yes Status: Chronic Continue statins --DVT prophylaxis Current Visit: No Status: Acute Coumadin GI prophylaxis -- Advance care planning Current Visit: Yes Status: Acute Disease education conducted, care plan discussed, diagnosis discussed, prognosis discussed. Patient is full code. Patient acknowledges understanding and agreement with c are plan. +30 minutes. --mechanical mitral valve, AVR replacement;- Patient on chronic anticoagulation, subtherapeutic INR Continue heparin drip, Coumadin target INR between 2.5-3.5 Closely monitor We will closely monitor the patient and adjust the management as needed Plan of care reviewed with the patient and her nurse History Interval history: Have seen and examined the patient at the bedside Patient's chart and medications reviewed Patient feels slightly better Vital signs noted Hospitalist Physical - Constitutional Vitals: Temp Pulse Resp BP Pulse Ox 98.0 F 59 L 18 128/54 91 11/23/21 07:46 11/23/21 07:46 11/23/21 07:46 11/23/21 07:46 11/23/21 07:46 General appearance: Present: no acute distress, well-nourished - EENT Eyes: Present: PERRL, EOM intact - Neck Neck: Present: supple, normal ROM - Respiratory Respiratory effort: normal Respiratory: bilateral: diminished, negative: rales, rhonchi, wheezing - Cardiovascular Rhythm: regular Heart Sounds: Present: S1 & S2 - Extremities Extremities: no ischemia, No edema - Abdominal General gastrointestinal: soft, non-tender, non-distended, normal bowel sounds - Integumentary Integumentary: Present: clear, warm - Psychiatric Psychiatric: appropriate mood/affect, cooperative - Neurologic Neurologic: moves all extremities HEART Score - HEART Score Age: 45-65 Risk factors: > 3 risk factors or hx of atherosclerotic disease Troponin: Troponin T 0.042 ng/mL (0.00-0.029) H D 11/22/21 13:44 Troponin: < normal limit - Critical Actions Critical Actions: 4-6 pts:12-16.6% risk of adverse cardiac event. Should be admitted Results - Labs CBC & Chem 7: 11/23/21 19:59 11/23/21 09:04 Labs: Laboratory Last Values WBC 7.2 K/mm3 (4.5-11.0) 11/22/21 08:10 RBC 4.14 M/mm3 (3.65-5.03) 11/22/21 08:10 Hgb 10.8 gm/dl (10.1-14.3) 11/22/21 08:10 Hct 35.9 % (30.3-42.9) 11/22/21 08:10 MCV 87 fl (79-97) 11/22/21 08:10 MCH 26 pg (28-32) L 11/22/21 08:10 MCHC 30 % (30-34) 11/22/21 08:10 RDW 26.9 % (13.2-15.2) H 11/22/21 08:10 Plt Count 390 K/mm3 (140-440) 11/22/21 08:10 Add Manual Diff Complete 11/22/21 08:10 Total Counted 100 11/22/21 08:10 Seg Neuts % (Manual) 81.0 % (40.0-70.0) H 11/22/21 08:10 Band Neutrophils % 0 % 11/22/21 08:10 Lymphocytes % (Manual) 13.0 % (13.4-35.0) L 11/22/21 08:10 Reactive Lymphs % (Man) 1.0 % 11/22/21 08:10 Monocytes % (Manual) 5.0 % (0.0-7.3) 11/22/21 08:10 Eosinophils % (Manual) 0 % (0.0-4.3) 11/22/21 08:10 Basophils % (Manual) 0 % (0.0-1.8) 11/22/21 08:10 Metamyelocytes % 0 % 11/22/21 08:10 Myelocytes % 0 % 11/22/21 08:10 Promyelocytes % 0 % 11/22/21 08:10 Blast Cells % 0 % 11/22/21 08:10 Nucleated RBC % Not Reportable 11/22/21 08:10 Seg Neutrophils # Man 5.8 K/mm3 (1.8-7.7) 11/22/21 08:10 Band Neutrophils # 0.0 K/mm3 11/22/21 08:10 Lymphocytes # (Manual) 0.9 K/mm3 (1.2-5.4) L 11/22/21 08:10 Abs React Lymphs (Man) 0.1 K/mm3 11/22/21 08:10 Monocytes # (Manual) 0.4 K/mm3 (0.0-0.8) 11/22/21 08:10 Eosinophils # (Manual) 0.0 K/mm3 (0.0-0.4) 11/22/21 08:10 Basophils # (Manual) 0.0 K/mm3 (0.0-0.1) 11/22/21 08:10 Metamyelocytes # 0.0 K/mm3 11/22/21 08:10 Myelocytes # 0.0 K/mm3 11/22/21 08:10 Promyelocytes # 0.0 K/mm3 11/22/21 08:10 Blast Cells # 0.0 K/mm3 11/22/21 08:10 WBC Morphology Not Reportable 11/22/21 08:10 Hypersegmented Neuts Not Reportable 11/22/21 08:10 Hyposegmented Neuts Not Reportable 11/22/21 08:10 Hypogranular Neuts Not Reportable 11/22/21 08:10 Smudge Cells Not Reportable 11/22/21 08:10 Toxic Granulation Not Reportable 11/22/21 08:10 Toxic Vacuolation Not Reportable 11/22/21 08:10 Dohle Bodies Not Reportable 11/22/21 08:10 Pelger-Huet Anomaly Not Reportable 11/22/21 08:10 Zee Rods Not Reportable 11/22/21 08:10 Platelet Estimate Consistent w auto 11/22/21 08:10 Clumped Platelets Not Reportable 11/22/21 08:10 Plt Clumps, EDTA Not Reportable 11/22/21 08:10 Large Platelets 1+ 11/22/21 08:10 Giant Platelets Not Reportable 11/22/21 08:10 Platelet Satelliting Not Reportable 11/22/21 08:10 Plt Morphology Comment Not Reportable 11/22/21 08:10 RBC Morphology Not Reportable 11/22/21 08:10 Dimorphic RBCs Not Reportable 11/22/21 08:10 Polychromasia 1+ 11/22/21 08:10 Hypochromasia 1+ 11/22/21 08:10 Poikilocytosis Not Reportable 11/22/21 08:10 Anisocytosis 3+ 11/22/21 08:10 Microcytosis Not Reportable 11/22/21 08:10 Macrocytosis Not Reportable 11/22/21 08:10 Spherocytes 2+ 11/22/21 08:10 Pappenheimer Bodies Not Reportable 11/22/21 08:10 Sickle Cells Not Reportable 11/22/21 08:10 Target Cells Not Reportable 11/22/21 08:10 Tear Drop Cells Not Reportable 11/22/21 08:10 Ovalocytes 2+ 11/22/21 08:10 Helmet Cells Not Reportable 11/22/21 08:10 [place] Bodies Not Reportable 11/22/21 08:10 [place] Rings Not Reportable 11/22/21 08:10 [place] Cells Not Reportable 11/22/21 08:10 Bite Cells Not Reportable 11/22/21 08:10 Crenated Cell Not Reportable 11/22/21 08:10 Elliptocytes Not Reportable 11/22/21 08:10 Acanthocytes (Spur) Not Reportable 11/22/21 08:10 Rouleaux Not Reportable 11/22/21 08:10 Hemoglobin C Crystals Not Reportable 11/22/21 08:10 Schistocytes Few 11/22/21 08:10 Malaria parasites Not Reportable 11/22/21 08:10 [place] Bodies Not Reportable 11/22/21 08:10 Hem Pathologist Commnt No 11/22/21 08:10 PT 16.6 Sec. (12.2-14.9) H 11/22/21 10:44 INR 1.20 (0.87-1.13) H 11/22/21 10:44 Sodium 142 mmol/L (137-145) 11/22/21 08:17 Potassium 4.2 mmol/L (3.6-5.0) 11/22/21 08:17 Chloride 106.8 mmol/L (98-107) 11/22/21 08:17 Carbon Dioxide 22 mmol/L (22-30) 11/22/21 08:17 Anion Gap 17 mmol/L 11/22/21 08:17 BUN 11 mg/dL (7-17) 11/22/21 08:17 Creatinine 1.0 mg/dL (0.6-1.2) 11/22/21 08:17 Estimated GFR > 60 ml/min 11/22/21 08:17 BUN/Creatinine Ratio 11 % 11/22/21 08:17 Glucose 89 mg/dL (65-100) 11/22/21 08:17 Calcium 10.4 mg/dL (8.4-10.2) H 11/22/21 08:17 Total Bilirubin 2.10 mg/dL (0.1-1.2) H 11/22/21 13:44 Direct Bilirubin 0.5 mg/dL (0-0.2) H 11/22/21 13:44 Indirect Bilirubin 1.6 mg/dL 11/22/21 13:44 AST 20 units/L (5-40) 11/22/21 08:17 ALT 8 units/L (7-56) 11/22/21 08:17 Alkaline Phosphatase 97 units/L (35-129) 11/22/21 08:17 Troponin T 0.042 ng/mL (0.00-0.029) H D 11/22/21 13:44 NT-Pro-B Natriuret Pep 6072 pg/mL (0-900) H 11/22/21 13:44 Total Protein 8.9 g/dL (6.3-8.2) H 11/22/21 08:17 Albumin 3.8 g/dL (3.9-5) L 11/22/21 08:17 Albumin/Globulin Ratio 0.7 % 11/22/21 08:17 Triglycerides 85 mg/dL (2-149) 11/22/21 08:17 Cholesterol 162 mg/dL (50-199) 11/22/21 08:17 LDL Cholesterol Direct 101 mg/dL (50-130) 11/22/21 08:17 HDL Cholesterol 42 mg/dL (40-59) 11/22/21 08:17 Cholesterol/HDL Ratio 3.85 % 11/22/21 08:17 Amylase 39 units/L (27-131) 11/22/21 08:17 Lipase 16 units/L (13-60) 11/22/21 08:17 Urine Color Yellow (Yellow) 11/23/21 Unknown Urine Turbidity Clear (Clear) 11/23/21 Unknown Urine pH 5.0 (5.0-7.0) 11/23/21 Unknown Ur Specific Scott 1.012 (1.003-1.030) 11/23/21 Unknown Urine Protein <15 mg/dl mg/dL (Negative) 11/23/21 Unknown Urine Glucose (UA) Neg mg/dL (Negative) 11/23/21 Unknown Urine Ketones Neg mg/dL (Negative) 11/23/21 Unknown Urine Blood Neg (Negative) 11/23/21 Unknown Urine Nitrite Neg (Negative) 11/23/21 Unknown Urine Bilirubin Neg (Negative) 11/23/21 Unknown Urine Urobilinogen < 2.0 mg/dL (<2.0) 11/23/21 Unknown Ur Leukocyte Esterase Neg (Negative) 11/23/21 Unknown Urine WBC (Auto) 1.0 /HPF (0.0-6.0) 11/23/21 Unknown Urine RBC (Auto) < 1.0 /HPF (0.0-6.0) 11/23/21 Unknown U Epithel Cells (Auto) 1.0 /HPF (0-13.0) 11/23/21 Unknown Urine Bacteria (Auto) 1+ /HPF (Negative) 11/23/21 Unknown Hyaline Casts 1 /LPF 11/23/21 Unknown Elkins/IV: Voiding Method External Female Catheter Active Medications - Current Medications Current Medications: Generic Name Dose Route Start Last Admin Trade Name Freq PRN Reason Stop Dose Admin Acetaminophen 650 mg 11/22/21 21:14 Acetaminophen 325 Mg Tab PO Q4H PRN Pain MILD(1-3)/Fever >100.5/VACA Albuterol 2.5 mg 11/22/21 21:39 Albuterol 2.5 Mg/3 Ml Nebu IH Q3HRT PRN Wheezing Albuterol/Ipratropium 1 ampul 11/23/21 08:00 11/23/21 08:52 Ipratropium/Albuterol Sulfate 3 Ml Ampul.Neb IH 1 ampul QIDRT HERACLIO Administration Atorvastatin Calcium 40 mg 11/22/21 22:00 11/22/21 22:38 Atorvastatin 40 Mg Tab PO 40 mg QHS HERACLIO Administration Digoxin 0.25 mg 11/23/21 17:00 Digoxin 0.25 Mg Tab PO DAILY@1700 [facility] Docusate Sodium 100 mg 11/22/21 21:12 Docusate Sodium 100 Mg Cap PO BID PRN Constipation Furosemide 40 mg 11/23/21 06:00 11/23/21 05:03 Furosemide 40 Mg/4 Ml Inj IV 40 mg QDAY@0600 [facility] Administration Gabapentin 300 mg 11/23/21 08:00 11/23/21 07:56 Gabapentin 300 Mg Cap PO 300 mg TID HERACLIO Administration Heparin Sodium (Porcine) 5,000 unit 11/22/21 22:00 11/23/21 09:10 Heparin 5,000 Unit/1 Ml Vial SUB-Q 5,000 unit Q12HR HERACLIO Administration Ceftriaxone Sodium 2 gm in 100 mls @ 200 mls/hr 11/22/21 22:00 11/22/21 22:37 Rocephin/Ns 2 Gm/100 Ml IV 200 mls/hr Q24H HERACLIO Administration Protocol Azithromycin 500 mg in 250 mls @ 250 mls/hr 11/22/21 22:30 11/22/21 22:37 Zithromax/Ns IV 250 mls/hr Q24H HERACLIO Administration Lisinopril 10 mg 11/23/21 10:00 11/23/21 09:10 Lisinopril 10 Mg Tab PO 10 mg QDAY HERACLIO Administration Methylprednisolone Sodium Succinate 80 mg 11/22/21 22:00 11/23/21 05:03 Methylprednisolone Sod Succinate 125 Mg/2 Ml Inj IV 80 mg Q8HR HERACLIO Administration Metoprolol Tartrate 50 mg 11/22/21 22:00 11/23/21 05:06 Metoprolol Tartrate 50 Mg Tab PO 50 mg Q8H HERACLIO Administration Morphine Sulfate 2 mg 11/22/21 21:24 11/23/21 09:11 Morphine 2 Mg/1 Ml Inj IV 2 mg Q4H PRN Administration Pain, Moderate (4-6) Nicotine 21 mg 11/22/21 22:00 11/23/21 09:10 Nicotine 21 Mg/24 Hr Patch TD 21 mg QDAY HERACLIO Administration Ondansetron HCl 4 mg 11/22/21 21:14 Ondansetron 4 Mg/2 Ml Inj IV Q8H PRN Nausea And Vomiting Oxycodone/Acetaminophen 1 tab 11/22/21 21:24 Oxycodone /Acetaminophen 5-325mg Tab PO Q6H PRN Pain, Moderate (4-6) Sodium Chloride 10 ml 11/22/21 22:00 11/23/21 09:12 Sodium Chloride 0.9% 10 Ml Flush Syringe IV 10 ml BID HERACLIO Administration Sodium Chloride 10 ml 11/22/21 21:14 Sodium Chloride 0.9% 10 Ml Flush Syringe IV PRN PRN LINE FLUSH Spironolactone 25 mg 11/23/21 10:00 11/23/21 09:10 Spironolactone 25 Mg Tab PO 25 mg QDAY HERACLIO Administration Warfarin Sodium 5 mg 11/23/21 17:00 Warfarin 5 Mg Tab PO DAILY@1700 [facility] Protocol
--- NOTE | 2021-11-23 09:59 | Consultation ---
History of Present Illness Consult date: 11/23/21 Requesting physician: PAULINA MIGUEL Past History Past Medical History: CAD, heart failure Medications and Allergies Allergies Allergy/AdvReac Type Severity Reaction Status Date / Time No Known Allergies Allergy Verified 11/22/21 21:14 Home Medications Medication Instructions Recorded Confirmed Last Taken Type Prednisone [predniSONE 10 mg 10 mg PO .TAPER #1 tab.ds.pk 11/10/17 11/22/21 06/13/19 Rx (6-Day Pack, 21 Tabs)] predniSONE [Deltasone] 50 mg PO QDAY #5 tab 01/21/19 11/22/21 06/13/19 Rx AtorvaSTATin [Lipitor] 40 mg PO QHS #30 tablet 06/18/19 11/22/21 11/21/21 Rx Digoxin [Lanoxin] 0.25 mg PO DAILY@1700 #30 tablet 06/18/19 11/22/21 11/21/21 Rx Gabapentin 300 mg PO TID #90 cap 06/18/19 11/22/21 11/21/21 Rx Metoprolol [Lopressor TAB] 50 mg PO Q8H #30 tablet 06/18/19 11/22/21 11/21/21 Rx Nicotine [Habitrol] 21 mg TD QDAY #30 patch 06/18/19 11/22/21 Unknown Rx Warfarin Sodium [Coumadin] 5 mg PO DAILY #30 tablet 06/18/19 11/22/21 11/21/21 Rx lisinopriL [Zestril TAB] 10 mg PO QDAY #30 tablet 06/18/19 11/22/21 11/21/21 Rx Docusate Sodium [Colace] 100 mg PO BID PRN #20 capsule 05/30/20 11/22/21 Unknown Rx Active Meds: Active Medications Acetaminophen (Acetaminophen 325 Mg Tab) 650 mg PO Q4H PRN PRN Reason: Pain MILD(1-3)/Fever >100.5/VACA Albuterol (Albuterol 2.5 Mg/3 Ml Nebu) 2.5 mg IH Q3HRT PRN PRN Reason: Wheezing Albuterol/Ipratropium (Ipratropium/Albuterol Sulfate 3 Ml Ampul.Neb) 1 ampul IH QIDRT HERACLIO Last Admin: 11/23/21 08:52 Dose: 1 ampul Atorvastatin Calcium (Atorvastatin 40 Mg Tab) 40 mg PO QHS [facility] Last Admin: 11/22/21 22:38 Dose: 40 mg Digoxin (Digoxin 0.25 Mg Tab) 0.25 mg PO DAILY@1700 [facility] Docusate Sodium (Docusate Sodium 100 Mg Cap) 100 mg PO BID PRN PRN Reason: Constipation Furosemide (Furosemide 40 Mg/4 Ml Inj) 40 mg IV QDAY@0600 [facility] Last Admin: 11/23/21 05:03 Dose: 40 mg Gabapentin (Gabapentin 300 Mg Cap) 300 mg PO TID [facility] Last Admin: 11/23/21 07:56 Dose: 300 mg Heparin Sodium (Porcine) (Heparin 5,000 Unit/1 Ml Vial) 5,000 unit SUB-Q Q12HR [facility] Last Admin: 11/23/21 09:10 Dose: 5,000 unit Ceftriaxone Sodium (Rocephin/Ns 2 Gm/100 Ml) 2 gm in 100 mls @ 200 mls/hr IV Q24H [facility]; Protocol Last Admin: 11/22/21 22:37 Dose: 200 mls/hr Azithromycin (Zithromax/Ns) 500 mg in 250 mls @ 250 mls/hr IV Q24H [facility] Last Admin: 11/22/21 22:37 Dose: 250 mls/hr Lisinopril (Lisinopril 10 Mg Tab) 10 mg PO QDAY [facility] Last Admin: 11/23/21 09:10 Dose: 10 mg Methylprednisolone Sodium Succinate (Methylprednisolone Sod Succinate 125 Mg/2 Ml Inj) 80 mg IV Q8HR [facility] Last Admin: 11/23/21 05:03 Dose: 80 mg Metoprolol Tartrate (Metoprolol Tartrate 50 Mg Tab) 50 mg PO Q8H [facility] Last Admin: 11/23/21 05:06 Dose: 50 mg Morphine Sulfate (Morphine 2 Mg/1 Ml Inj) 2 mg IV Q4H PRN PRN Reason: Pain, Moderate (4-6) Last Admin: 11/23/21 09:11 Dose: 2 mg Nicotine (Nicotine 21 Mg/24 Hr Patch) 21 mg TD QDAY [facility] Last Admin: 11/23/21 09:10 Dose: 21 mg Ondansetron HCl (Ondansetron 4 Mg/2 Ml Inj) 4 mg IV Q8H PRN PRN Reason: Nausea And Vomiting Oxycodone/Acetaminophen (Oxycodone /Acetaminophen 5-325mg Tab) 1 tab PO Q6H PRN PRN Reason: Pain, Moderate (4-6) Sodium Chloride (Sodium Chloride 0.9% 10 Ml Flush Syringe) 10 ml IV BID [facility] Last Admin: 11/23/21 09:12 Dose: 10 ml Sodium Chloride (Sodium Chloride 0.9% 10 Ml Flush Syringe) 10 ml IV PRN PRN PRN Reason: LINE FLUSH Spironolactone (Spironolactone 25 Mg Tab) 25 mg PO QDAY [facility] Last Admin: 11/23/21 09:10 Dose: 25 mg Warfarin Sodium (Warfarin 5 Mg Tab) 5 mg PO DAILY@1700 [facility]; Protocol Physical Examination Vital Signs Temp Pulse Resp BP Pulse Ox 98.7 F 94 H 16 152/92 97 11/22/21 04:34 11/22/21 04:34 11/22/21 04:34 11/22/21 04:34 11/22/21 04:34 Results 11/23/21 09:04 11/23/21 09:04 Coagulation 11/22/21 Range/Units 10:44 PT 16.6 H (12.2-14.9) Sec. INR 1.20 H (0.87-1.13) Lipids 11/22/21 Range/Units 08:17 Triglycerides 85 (2-149) mg/dL Cholesterol 162 (50-199) mg/dL HDL Cholesterol 42 (40-59) mg/dL Cholesterol/HDL Ratio 3.85 % Comprehensive Metabolic Panel 11/22/21 Range/Units 13:44 Direct Bilirubin 0.5 H (0-0.2) mg/dL Indirect Bilirubin 1.6 mg/dL Assessment and Plan PAOLO 05/16/2021: CONCLUSIONS: 1. Left ventricular ejection fraction is 55%. 2. Aortic valve is normally functioning mechanical prosthetic valve and not well visualized. 3. Moderately dilated left atrium. 4. Mildly increased left ventricular wall thickness. 5. 2 mobile echodensities attached to RA/RV ICD leads, likely thrombus. However, would get blood cultures to rule out infection. 6. Bileaflet mechanical mitral valve with good leaflet mobility. Mean mitral pressure gradient of 5 at a HR of 100. 7. Mild perivalvular mitral valve regurgitation. 8. No thrombus seen in either the left atrial appendage or left atrial cavity. ECHO 05/11/2021: SUMMARY/CONCLUSIONS: 1. This is a technically difficult study with limited views. 2. Left ventricular ejection fraction is 50%. 3. Severely dilated left atrium. 4. Severe concentric left ventricular hypertrophy. 5. Basal inferoseptal segment and basal inferior segment are abnormal. 6. Mobile echodensity in the posterior right atrium adjacent the pacer wire suggestive of thromubs or vegetation. Recommend correlation with blood cultures and/or PAOLO. 7. Presumed mechanical prosthetic valve in the aortic position that is never well visualized. 8. There is a mechanical prosthesis well seated in the mitral position. The leaflets move freely. Mean gradient is 6 mmHg (HR 132 bpm). Assessment of MR limited by valve artifact. 9. The estimated right ventricular systolic pressure is moderately elevated right ventricular systolic pressure at 51.7 mmHg. Subtherapeutic INR History of right atrial echodensity/likely thrombus Hypertrophic cardiomyopathy/septal myomectomy Mechanical mitral valve replacement 2013 History of bacterial endocarditis 2014 (subsequent ICD extraction and mechanical SAVR) Mechanical AVR/MVR [employer] dual-chamber ICD Chronic atrial fibrillation/atypical flutter CVA HFpEF Hypertension Tobacco use Crohn's disease Neurocognitive disorder/neuropsychiatric disorder
[2021-11-23 11:00] LABS: Hematocrit 33.3 % (30.3-42.9); Hemoglobin 10.1 gm/dl (10.1-14.3); Mean Corpuscular HGB Conc 30 % (30-34); Mean Corpuscular Volume 89 fl (79-97); Red Blood Count 3.75 M/mm3 (3.65-5.03)
[2021-11-23 11:01] LABS: Platelet Count 321 K/mm3 (140-440)
[2021-11-23 11:16] LABS: Albumin 3.4 g/dL (3.9-5); Calcium 9.2 mg/dL (8.4-10.2)
[2021-11-23 13:25] LABS: Basophils % (Manual) 0 % (0.0-1.8); Eosinophils % (Manual) 0 % (0.0-4.3); Total Cells Counted 100
[2021-11-23 13:26] LABS: Anisocytosis 3+; Burr Cells 1+; Hypochromasia 1+; Large Platelets Few; Platelet Estimate Consistent w Auto; Poikilocytosis 1+
[2021-11-23] MEDS: DIGOXIN 0.25 MG TAB PO SCH (16:58)
[2021-11-23] MEDS ORDERED: WARFARIN 5 MG TAB PO SCH (17:00)
--- NOTE | 2021-11-23 17:47 | Event Note ---
Date: 11/23/21 Pt has an extensive cardiac hx of PAF/Flutter (on Coumadin), polymorphic VT s/p AICD placement, HFpEF, and valvular heart disease, including mechanical MV & TV repair (2013), as well as TAVR (2015, post AV endocarditis). Furthermore she has a documented hx of substance abuse and compliance issues. She is currently admitted with SOB secondary to A/C HFpEF. She is receiving IV Lasix 40mg BID. Agree with this plan. Continue other present GDMT. In light of mechanical valve with subtherapeutic INR, recommend also resumption of Coumadin with low- dose IV heparin bridging for target INR 2.53.5. Otherwise, pt is currently under the care of Dr. Mosqueda with [facility]. Will transfer pt to their service for further cardiac mgmt.
[2021-11-23] MEDS ORDERED: HEPARIN 10,000 UNITS/10 ML VIAL IV PRN (17:56)
[2021-11-23] MEDS: HEPARIN/ 0.45% NACL DRIP 25,000 UNIT/500 ML BAG IV SCH (18:32)
[2021-11-23 20:21] LABS: Hematocrit 32.6 % (30.3-42.9); Hemoglobin 9.7 gm/dl (10.1-14.3)
[2021-11-23 20:25] LABS: INR 1.18 (0.87-1.13)
[2021-11-23 20:26] LABS: Partial Thromboplastin Time 30.1 Sec. (24.2-36.6)
[2021-11-23 22:04] LABS: Creatine Kinase MB 2.9 ng/mL (0.0-4.0)
[2021-11-24] MEDS: methylPREDNISolone Sod Succinate 125 MG/2 ML INJ IV SCH ×4 (00:27→22:10)
[2021-11-24] MEDS: cefTRIAXone/NS 2 GM/100 ML 2 GM/100 ML BAG IV SCH ×2 (00:28→22:11)
[2021-11-24] MEDS: AZITHROMYCIN/NS 500 MG/250 ML 500 MG/250 ML BAG IV SCH ×2 (00:29→22:11)
[2021-11-24 03:50] LABS: INR 1.21 (0.87-1.13)
[2021-11-24] MEDS: MORPHINE 2 MG/1 ML INJ IV PRN ×4 (04:58→21:00)
[2021-11-24] MEDS: FUROSEMIDE 40 MG/4 ML INJ IV SCH (06:38)
[2021-11-24] MEDS: METOPROLOL TARTRATE 50 MG TAB PO SCH ×3 (06:38→22:00)
[2021-11-24] MEDS: IPRATROPIUM/ALBUTEROL SULFATE 3 ML AMPUL.NEB IH SCH ×3 (09:16→21:26)
--- NOTE | 2021-11-24 09:23 | Consultation ---
History of Present Illness Consult date: 11/24/21 Consult reason: congestive heart failure History of present illness: The patient is a 56-year-old woman with longstanding Crohn's disease, admitted to the hospital with symptoms of nausea vomiting and diarrhea, presumed exacerbation of her Crohn's disease symptoms. On this presentation, cardiology consultation was requested for further assessment and management of the patient's chronic cardiac status. She has no cardiac complaints, no chest pain, no shortness of breath, no palpitations and no lower extremity edema. She has a history of mitral valve disease which required mechanical mitral valve replacement done at [place] several years ago. She has an ICD implant for sustained ventricular tachycardia. She also developed aortic valve endocarditis which ultimately led to surgical replacement of the aortic valve, also with a mechanical prosthesis. She has chronic atrial fibrillation. Her mechanical valves and chronic atrial fibrillation have required chronic anticoagulation with warfarin. On this presentation, ECG is ventricular paced rhythm with underlying atrial fibrillation. Chest x-ray shows a moderate severity cardiomegaly, sternal wires of previous thoracotomy, and a cardiac defibrillator in situ. There is no significant interstitial edema or heart failure on chest x-ray. The INR was s ubtherapeutic at 1.20, and patient is unable to report the last time she was within therapeutic range. Echocardiogram on this presentation shows a four-chamber cardiomyopathy, left ventricular ejection fraction 30 to 35%, with a 30 mm mean gradient across the mechanical aortic valve, and the 10 mm mean gradient across the mitral valve mechanical prosthesis. Past History Past Medical History: heart failure, other (Crohn's disease) Past Surgical History: Other (Mechanical aortic and mitral valve replacements, internal cardiac defibrillator) Medications and Allergies Allergies Allergy/AdvReac Type Severity Reaction Status Date / Time No Known Allergies Allergy Verified 11/22/21 21:14 Home Medications Medication Instructions Recorded Confirmed Last Taken Type Prednisone [predniSONE 10 mg 10 mg PO .TAPER #1 tab.ds.pk 11/10/17 11/22/21 06/13/19 Rx (6-Day Pack, 21 Tabs)] predniSONE [Deltasone] 50 mg PO QDAY #5 tab 01/21/19 11/22/21 06/13/19 Rx AtorvaSTATin [Lipitor] 40 mg PO QHS #30 tablet 06/18/19 11/22/21 11/21/21 Rx Digoxin [Lanoxin] 0.25 mg PO DAILY@1700 #30 tablet 06/18/19 11/22/21 11/21/21 Rx Gabapentin 300 mg PO TID #90 cap 06/18/19 11/22/21 11/21/21 Rx Metoprolol [Lopressor TAB] 50 mg PO Q8H #30 tablet 06/18/19 11/22/21 11/21/21 Rx Nicotine [Habitrol] 21 mg TD QDAY #30 patch 06/18/19 11/22/21 Unknown Rx Warfarin Sodium [Coumadin] 5 mg PO DAILY #30 tablet 06/18/19 11/22/21 11/21/21 Rx lisinopriL [Zestril TAB] 10 mg PO QDAY #30 tablet 06/18/19 11/22/21 11/21/21 Rx Docusate Sodium [Colace] 100 mg PO BID PRN #20 capsule 05/30/20 11/22/21 Unknown Rx Active Meds: Active Medications Acetaminophen (Acetaminophen 325 Mg Tab) 650 mg PO Q4H PRN PRN Reason: Pain MILD(1-3)/Fever >100.5/VACA Albuterol (Albuterol 2.5 Mg/3 Ml Nebu) 2.5 mg IH Q3HRT PRN PRN Reason: Wheezing Albuterol/Ipratropium (Ipratropium/Albuterol Sulfate 3 Ml Ampul.Neb) 1 ampul IH TIDRT [facility], [facility] Last Admin: 11/24/21 09:16 Dose: 1 ampul Atorvastatin Calcium (Atorvastatin 40 Mg Tab) 40 mg PO QHS [facility] Last Admin: 11/23/21 22:00 Dose: 40 mg Digoxin (Digoxin 0.25 Mg Tab) 0.25 mg PO DAILY@1700 [facility], [facility] Last Admin: 11/23/21 16:58 Dose: 0.25 mg Docusate Sodium (Docusate Sodium 100 Mg Cap) 100 mg PO BID PRN PRN Reason: Constipation Furosemide (Furosemide 40 Mg/4 Ml Inj) 40 mg IV QDAY@0600 [facility] Last Admin: 11/24/21 06:38 Dose: 40 mg Gabapentin (Gabapentin 300 Mg Cap) 300 mg PO TID [facility] Last Admin: 11/23/21 20:28 Dose: 300 mg Heparin Sodium (Porcine) (Heparin 10,000 Units/10 Ml Vial) 3,300 unit 40 unit/kg (3300 unit) IV Q6H PRN PRN Reason: Anti-Xa Assay < 0.1 units/ml Ceftriaxone Sodium (Rocephin/Ns 2 Gm/100 Ml) 2 gm in 100 mls @ 200 mls/hr IV Q24H [facility], [facility]; Protocol Stop: 11/26/21 23:59 Last Admin: 11/24/21 00:28 Dose: 200 mls/hr Azithromycin (Zithromax/Ns) 500 mg in 250 mls @ 250 mls/hr IV Q24H [facility] Stop: 11/26/21 23:59 Last Admin: 11/24/21 00:29 Dose: 250 mls/hr Heparin Sodium/Sodium Chloride (Heparin/ 0.45% Nacl-25,000 Unit/500 Ml) 25,000 unit in 500 mls @ 24 mls/hr IV TITR [facility], [facility]; Protocol Last Titration: 11/24/21 03:25 Dose: 1,250 units/hr, 25 mls/hr Lisinopril (Lisinopril 10 Mg Tab) 10 mg PO QDAY [facility] Last Admin: 11/23/21 09:10 Dose: 10 mg Methylprednisolone Sodium Succinate (Methylprednisolone Sod Succinate 125 Mg/2 Ml Inj) 80 mg IV Q8HR [facility] Last Admin: 11/24/21 06:39 Dose: 80 mg Metoprolol Tartrate (Metoprolol Tartrate 50 Mg Tab) 50 mg PO Q8H [facility] Last Admin: 11/24/21 06:38 Dose: 50 mg Morphine Sulfate (Morphine 2 Mg/1 Ml Inj) 2 mg IV Q4H PRN PRN Reason: Pain, Moderate (4-6) Last Admin: 11/24/21 04:58 Dose: 2 mg Nicotine (Nicotine 21 Mg/24 Hr Patch) 21 mg TD QDAY [facility] Last Admin: 11/23/21 19:12 Dose: Not Given Ondansetron HCl (Ondansetron 4 Mg/2 Ml Inj) 4 mg IV Q8H PRN PRN Reason: Nausea And Vomiting Oxycodone/Acetaminophen (Oxycodone /Acetaminophen 5-325mg Tab) 1 tab PO Q6H PRN PRN Reason: Pain, Moderate (4-6) Sodium Chloride (Sodium Chloride 0.9% 10 Ml Flush Syringe) 10 ml IV BID [facility] Last Admin: 11/24/21 00:30 Dose: 10 ml Sodium Chloride (Sodium Chloride 0.9% 10 Ml Flush Syringe) 10 ml IV PRN PRN PRN Reason: LINE FLUSH Spironolactone (Spironolactone 25 Mg Tab) 25 mg PO QDAY [facility] Last Admin: 11/23/21 09:10 Dose: 25 mg Warfarin Sodium (Warfarin 5 Mg Tab) 5 mg PO DAILY@1700 HERACLIO; Protocol Last Admin: 11/23/21 16:59 Dose: 5 mg Review of Systems Cardiovascular: shortness of breath, no chest pain, no orthopnea, no palpitations, no rapid/irregular heart beat, no edema, no syncope, no lightheadedness Physical Examination Vital Signs Temp Pulse Resp BP Pulse Ox 98.7 F 94 H 16 152/92 97 11/22/21 04:34 11/22/21 04:34 11/22/21 04:34 11/22/21 04:34 11/22/21 04:34 General appearance: no acute distress HEENT: Positive: PERRL Neck: Positive: neck supple Cardiac: Positive: Irregularly Regular Lungs: Positive: Decreased Breath Sounds Neuro: Positive: Grossly Intact Abdomen: Positive: Soft Female genitourinary: deferred Skin: Positive: Clear Extremities: Absent: edema Results 11/25/21 05:08 11/23/21 09:04 Cardiac Enzymes 11/23/21 11/23/21 Range/Units 09:04 21:29 AST 15 (5-40) units/L CK-MB (CK-2) 2.9 (0.0-4.0) ng/mL Coagulation 11/23/21 11/24/21 Range/Units 19:59 01:21 PT 16.4 H 16.7 H (12.2-14.9) Sec. INR 1.18 H 1.21 H (0.87-1.13) APTT 30.1 (24.2-36.6) Sec. CBC 11/23/21 11/23/21 Range/Units 09:04 19:59 WBC 5.5 (4.5-11.0) K/mm3 RBC 3.75 (3.65-5.03) M/mm3 Hgb 10.1 9.7 L (10.1-14.3) gm/dl Hct 33.3 32.6 (30.3-42.9) % Plt Count 321 299 (140-440) K/mm3 Comprehensive Metabolic Panel 11/23/21 Range/Units 09:04 Sodium 139 (137-145) mmol/L Potassium 4.6 (3.6-5.0) mmol/L Chloride 104.5 (98-107) mmol/L Carbon Dioxide 19 L (22-30) mmol/L BUN 17 (7-17) mg/dL Creatinine 1.3 H (0.6-1.2) mg/dL Glucose 179 H (65-100) mg/dL Calcium 9.2 (8.4-10.2) mg/dL AST 15 (5-40) units/L ALT 7 (7-56) units/L Alkaline Phosphatase 85 (35-129) units/L Total Protein 8.1 (6.3-8.2) g/dL Albumin 3.4 L (3.9-5) g/dL EKG interpretations Pacemaker: ventricular pacing w/capt Assessment and Plan - Patient Problems (1) Warfarin anticoagulation Current Visit: Yes Status: Acute Plan to address problem: The patient has a mechanical aortic valve, mechanical mitral valve, and chronic atrial fibrillation. She requires uninterrupted warfarin therapy with a target INR of 2.5-3.5. Patient was subtherapeutic on presentation, and is currently on bridge therapy with heparin. Continue heparin until INR is 2.5 or greater. (2) Mechanical heart valve present Current Visit: Yes Status: Acute Plan to address problem: The patient has a mechanical aortic valve, mechanical mitral valve, and chronic atrial fibrillation. She requires uninterrupted warfarin therapy with a target INR of 2.5-3.5. Patient was subtherapeutic on presentation, and is currently on bridge therapy with heparin. Continue heparin until INR is 2.5 or greater. (3) Dilated cardiomyopathy Current Visit: Yes Status: Acute Plan to address problem: Guideline directed medical therapy for cardiomyopathy and chronic left ventricular systolic dysfunction.
[2021-11-24] MEDS: GABAPENTIN 300 MG CAP PO SCH ×3 (09:26→20:59)
[2021-11-24] MEDS: NICOTINE 21 MG/24 HR PATCH TD SCH (09:26)
[2021-11-24] MEDS: SPIRONOLACTONE 25 MG TAB PO SCH (09:26)
[2021-11-24] MEDS: LISINOPRIL 10 MG TAB PO SCH (09:26)
[2021-11-24] MEDS: DIGOXIN 0.25 MG TAB PO SCH (16:49)
[2021-11-24] MEDS: WARFARIN 7.5 MG TAB PO SCH (16:49)
[2021-11-24] MEDS: HEPARIN/ 0.45% NACL DRIP 25,000 UNIT/500 ML BAG IV SCH (18:17)
--- NOTE | 2021-11-24 18:46 | Progress Note ---
Assessment and Plan Assessment and plan: --Acute exacerbation of CHF (congestive heart failure) Current Visit: Yes Status: Acute Echocardiogram for ejection fraction was in motion abnormalities and valve function IV Lasix and Aldactone Cardiology consult, Intake and output Daily weights --Acute COPD exacerbation Current Visit: Yes Status: Acute Pulmonary Dr. Goldberg consulted Patient on high-dose steroids for unknown reason Needs pulmonary function studies as outpatient --Acute hypoxic respiratory failure; present on admission Current Visit: Yes Status: Acute O2 sats in ER 80s room air, improved with supplemental oxygen and nebulizer treatments Continue oxygen titrate O2 sats to more than 90%, nebulizers IV steroids, inhalation steroids, pulmonary consult if needed --h/o mechanical mitral valve replacement/aortic valve replacement Continue heparin drip, Coumadin, daily monitoring of INR, target INR 2.5-3.5 Pharmacy managing --Medical noncompliance; Patient strongly counseled the importance of adhering to the treatment plan Recent consequences of not using anticoagulants on a regular basis with therapeutic levels of INR Patient verbalized understanding --Ongoing tobacco use; Tobacco use, cessation counseling Nicotine patch as needed I counseled more than 15 minutes Informed the risks and consequences of ongoing tobacco use Also encouraged him to quit tobacco use --History of bacterial endocarditis 2014; treated Supportive care --Hypertension Current Visit: Yes Status: Chronic Continue antihypertensive and adjust medications as tolerated --Chronic atrial fibrillation/atypical flutter Current Visit: Yes Status: Chronic Continue current medications, long-term anticoagulation Continue Coumadin -h/o hypertrophic cardiomyopathy s/p myomectomy Continue supportive care, cardiology following -- Hyperlipidemia Current Visit: Yes Status: Chronic Continue statins --DVT prophylaxis Current Visit: No Status: Acute Patient is already on heparin and Coumadin -- Advance care planning Current Visit: Yes Status: Acute Disease education conducted, care plan discussed, diagnosis discussed, prognosis discussed. Patient is full code. Patient acknowledges understanding and agreement with care plan. +30 minutes. We will closely monitor the patient and adjust the management as needed Plan of care reviewed with the patient and her nurse History Interval history: Seen and examined the patient at the bedside Patient's chart and medications reviewed Patient complains of generalized body pain and asked for pain medication Denies chest pain, vital signs noted Hospitalist Physical - Constitutional Vitals: Temp Pulse Resp BP Pulse Ox 99.2 F 70 18 136/67 92 11/24/21 16:35 11/24/21 16:49 11/24/21 16:35 11/24/21 16:49 11/24/21 16:35 General appearance: Present: no acute distress, well-nourished - EENT Eyes: Present: PERRL, EOM intact - Neck Neck: Present: supple, normal ROM - Respiratory Respiratory effort: normal Respiratory: bilateral: diminished, negative: rales, rhonchi, wheezing - Cardiovascular Rhythm: regular Heart Sounds: Present: S1 & S2 - Extremities Extremities: no ischemia, No edema - Abdominal General gastrointestinal: soft, non-tender, non-distended, normal bowel sounds - Integumentary Integumentary: Present: clear, warm - Psychiatric Psychiatric: appropriate mood/affect, cooperative - Neurologic Neurologic: moves all extremities HEART Score - HEART Score Age: 45-65 Risk factors: > 3 risk factors or hx of atherosclerotic disease Troponin: Troponin T 0.035 ng/mL (0.00-0.029) H 11/24/21 03:02 Troponin: < normal limit - Critical Actions Critical Actions: 4-6 pts:12-16.6% risk of adverse cardiac event. Should be admitted Results - Labs CBC & Chem 7: 11/23/21 19:59 11/23/21 09:04 Labs: Laboratory Last Values WBC 5.5 K/mm3 (4.5-11.0) 11/23/21 09:04 RBC 3.75 M/mm3 (3.65-5.03) 11/23/21 09:04 Hgb 9.7 gm/dl (10.1-14.3) L 11/23/21 19:59 Hct 32.6 % (30.3-42.9) 11/23/21 19:59 MCV 89 fl (79-97) 11/23/21 09:04 MCH 27 pg (28-32) L 11/23/21 09:04 MCHC 30 % (30-34) 11/23/21 09:04 RDW 27.0 % (13.2-15.2) H 11/23/21 09:04 Plt Count 299 K/mm3 (140-440) 11/23/21 19:59 Add Manual Diff Complete 11/23/21 09:04 Total Counted 100 11/23/21 09:04 Seg Neuts % (Manual) 92.0 % (40.0-70.0) H 11/23/21 09:04 Band Neutrophils % 0 % 11/23/21 09:04 Lymphocytes % (Manual) 7.0 % (13.4-35.0) L 11/23/21 09:04 Reactive Lymphs % (Man) 0 % 11/23/21 09:04 Monocytes % (Manual) 1.0 % (0.0-7.3) 11/23/21 09:04 Eosinophils % (Manual) 0 % (0.0-4.3) 11/23/21 09:04 Basophils % (Manual) 0 % (0.0-1.8) 11/23/21 09:04 Metamyelocytes % 0 % 11/23/21 09:04 Myelocytes % 0 % 11/23/21 09:04 Promyelocytes % 0 % 11/23/21 09:04 Blast Cells % 0 % 11/23/21 09:04 Nucleated RBC % Not Reportable 11/23/21 09:04 Seg Neutrophils # Man 5.1 K/mm3 (1.8-7.7) 11/23/21 09:04 Band Neutrophils # 0.0 K/mm3 11/23/21 09:04 Lymphocytes # (Manual) 0.4 K/mm3 (1.2-5.4) L 11/23/21 09:04 Abs React Lymphs (Man) 0.0 K/mm3 11/23/21 09:04 Monocytes # (Manual) 0.1 K/mm3 (0.0-0.8) 11/23/21 09:04 Eosinophils # (Manual) 0.0 K/mm3 (0.0-0.4) 11/23/21 09:04 Basophils # (Manual) 0.0 K/mm3 (0.0-0.1) 11/23/21 09:04 Metamyelocytes # 0.0 K/mm3 11/23/21 09:04 Myelocytes # 0.0 K/mm3 11/23/21 09:04 Promyelocytes # 0.0 K/mm3 11/23/21 09:04 Blast Cells # 0.0 K/mm3 11/23/21 09:04 WBC Morphology Not Reportable 11/23/21 09:04 Hypersegmented Neuts Not Reportable 11/23/21 09:04 Hyposegmented Neuts Not Reportable 11/23/21 09:04 Hypogranular Neuts Not Reportable 11/23/21 09:04 Smudge Cells Not Reportable 11/23/21 09:04 Toxic Granulation Not Reportable 11/23/21 09:04 Toxic Vacuolation Not Reportable 11/23/21 09:04 Dohle Bodies Not Reportable 11/23/21 09:04 Pelger-Huet Anomaly Not Reportable 11/23/21 09:04 Zee Rods Not Reportable 11/23/21 09:04 Platelet Estimate Consistent w auto 11/23/21 09:04 Clumped Platelets Not Reportable 11/23/21 09:04 Plt Clumps, EDTA Not Reportable 11/23/21 09:04 Large Platelets Few 11/23/21 09:04 Giant Platelets Not Reportable 11/23/21 09:04 Platelet Satelliting Not Reportable 11/23/21 09:04 Plt Morphology Comment Not Reportable 11/23/21 09:04 RBC Morphology Not Reportable 11/23/21 09:04 Dimorphic RBCs Not Reportable 11/23/21 09:04 Polychromasia Few 11/23/21 09:04 Hypochromasia 1+ 11/23/21 09:04 Poikilocytosis 1+ 11/23/21 09:04 Anisocytosis 3+ 11/23/21 09:04 Microcytosis Not Reportable 11/23/21 09:04 Macrocytosis Not Reportable 11/23/21 09:04 Spherocytes Not Reportable 11/23/21 09:04 Pappenheimer Bodies Not Reportable 11/23/21 09:04 Sickle Cells Not Reportable 11/23/21 09:04 Target Cells Not Reportable 11/23/21 09:04 Tear Drop Cells Not Reportable 11/23/21 09:04 Ovalocytes Not Reportable 11/23/21 09:04 Helmet Cells Not Reportable 11/23/21 09:04 [place] Bodies Not Reportable 11/23/21 09:04 [place] Rings Not Reportable 11/23/21 09:04 [place] Cells 1+ 11/23/21 09:04 Bite Cells Not Reportable 11/23/21 09:04 Crenated Cell Not Reportable 11/23/21 09:04 Elliptocytes Not Reportable 11/23/21 09:04 Acanthocytes (Spur) Not Reportable 11/23/21 09:04 Rouleaux Not Reportable 11/23/21 09:04 Hemoglobin C Crystals Not Reportable 11/23/21 09:04 Schistocytes Not Reportable 11/23/21 09:04 Malaria parasites Not Reportable 11/23/21 09:04 [place] Bodies Not Reportable 11/23/21 09:04 Hem Pathologist Commnt No 11/23/21 09:04 PT 16.7 Sec. (12.2-14.9) H 11/24/21 01:21 INR 1.21 (0.87-1.13) H 11/24/21 01:21 APTT 30.1 Sec. (24.2-36.6) 11/23/21 19:59 Heparin Anti-Xa Level 0.19 U.I./ml (0.3-0.7) L 11/24/21 10:43 Sodium 139 mmol/L (137-145) 11/23/21 09:04 Potassium 4.6 mmol/L (3.6-5.0) 11/23/21 09:04 Chloride 104.5 mmol/L (98-107) 11/23/21 09:04 Carbon Dioxide 19 mmol/L (22-30) L 11/23/21 09:04 Anion Gap 20 mmol/L 11/23/21 09:04 BUN 17 mg/dL (7-17) 11/23/21 09:04 Creatinine 1.3 mg/dL (0.6-1.2) H 11/23/21 09:04 Estimated GFR 51 ml/min 11/23/21 09:04 BUN/Creatinine Ratio 13 % 11/23/21 09:04 Glucose 179 mg/dL (65-100) H 11/23/21 09:04 Calcium 9.2 mg/dL (8.4-10.2) 11/23/21 09:04 Total Bilirubin 1.00 mg/dL (0.1-1.2) 11/23/21 09:04 Direct Bilirubin 0.5 mg/dL (0-0.2) H 11/22/21 13:44 Indirect Bilirubin 1.6 mg/dL 11/22/21 13:44 AST 15 units/L (5-40) 11/23/21 09:04 ALT 7 units/L (7-56) 11/23/21 09:04 Alkaline Phosphatase 85 units/L (35-129) 11/23/21 09:04 Total Creatine Kinase 60 units/L (30-135) 11/23/21 21:29 CK-MB (CK-2) 2.9 ng/mL (0.0-4.0) 11/23/21 21:29 CK-MB (CK-2) Rel Index 4.8 (0-4) H 11/23/21 21:29 Troponin T 0.035 ng/mL (0.00-0.029) H 11/24/21 03:02 NT-Pro-B Natriuret Pep 6072 pg/mL (0-900) H 11/22/21 13:44 Total Protein 8.1 g/dL (6.3-8.2) 11/23/21 09:04 Albumin 3.4 g/dL (3.9-5) L 11/23/21 09:04 Albumin/Globulin Ratio 0.7 % 11/23/21 09:04 Triglycerides 85 mg/dL (2-149) 11/22/21 08:17 Cholesterol 162 mg/dL (50-199) 11/22/21 08:17 LDL Cholesterol Direct 101 mg/dL (50-130) 11/22/21 08:17 HDL Cholesterol 42 mg/dL (40-59) 11/22/21 08:17 Cholesterol/HDL Ratio 3.85 % 11/22/21 08:17 Amylase 39 units/L (27-131) 11/22/21 08:17 Lipase 16 units/L (13-60) 11/22/21 08:17 Urine Color Yellow (Yellow) 11/23/21 Unknown Urine Turbidity Clear (Clear) 11/23/21 Unknown Urine pH 5.0 (5.0-7.0) 11/23/21 Unknown Ur Specific [place] 1.012 (1.003-1.030) 11/23/21 Unknown Urine Protein <15 mg/dl mg/dL (Negative) 11/23/21 Unknown Urine Glucose (UA) Neg mg/dL (Negative) 11/23/21 Unknown Urine Ketones Neg mg/dL (Negative) 11/23/21 Unknown Urine Blood Neg (Negative) 11/23/21 Unknown Urine Nitrite Neg (Negative) 11/23/21 Unknown Urine Bilirubin Neg (Negative) 11/23/21 Unknown Urine Urobilinogen < 2.0 mg/dL (<2.0) 11/23/21 Unknown Ur Leukocyte Esterase Neg (Negative) 11/23/21 Unknown Urine WBC (Auto) 1.0 /HPF (0.0-6.0) 11/23/21 Unknown Urine RBC (Auto) < 1.0 /HPF (0.0-6.0) 11/23/21 Unknown U Epithel Cells (Auto) 1.0 /HPF (0-13.0) 11/23/21 Unknown Urine Bacteria (Auto) 1+ /HPF (Negative) 11/23/21 Unknown Hyaline Casts 1 /LPF 11/23/21 Unknown [place]/IV: Voiding Method External Female Catheter Active Medications - Current Medications Current Medications: Generic Name Dose Route Start Last Admin Trade Name Freq PRN Reason Stop Dose Admin Acetaminophen 650 mg 11/22/21 21:14 Acetaminophen 325 Mg Tab PO Q4H PRN Pain MILD(1-3)/Fever >100.5/VACA Albuterol 2.5 mg 11/22/21 21:39 Albuterol 2.5 Mg/3 Ml Nebu IH Q3HRT PRN Wheezing Albuterol/Ipratropium 1 ampul 11/24/21 08:00 11/24/21 15:14 Ipratropium/Albuterol Sulfate 3 Ml Ampul.Neb IH 1 ampul TIDRT HERACLIO Administration Atorvastatin Calcium 40 mg 11/22/21 22:00 11/23/21 22:00 Atorvastatin 40 Mg Tab PO 40 mg QHS HERACLIO Administration Digoxin 0.25 mg 11/23/21 17:00 11/24/21 16:49 Digoxin 0.25 Mg Tab PO 0.25 mg DAILY@1700 HERACLIO Administration Docusate Sodium 100 mg 11/22/21 21:12 Docusate Sodium 100 Mg Cap PO BID PRN Constipation Furosemide 40 mg 11/23/21 06:00 11/24/21 06:38 Furosemide 40 Mg/4 Ml Inj IV 40 mg QDAY@0600 HERACLIO Administration Gabapentin 300 mg 11/23/21 08:00 11/24/21 13:58 Gabapentin 300 Mg Cap PO 300 mg TID HERACLIO Administration Heparin Sodium (Porcine) 3,300 unit 11/23/21 17:56 Heparin 10,000 Units/10 Ml Vial 40 unit/kg (3300 unit) IV Q6H PRN Anti-Xa Assay < 0.1 units/ml Ceftriaxone Sodium 2 gm in 100 mls @ 200 mls/hr 11/22/21 22:00 11/24/21 00:28 Rocephin/Ns 2 Gm/100 Ml IV 11/26/21 23:59 200 mls/hr Q24H HERACLIO Administration Protocol Azithromycin 500 mg in 250 mls @ 250 mls/hr 11/22/21 22:30 11/24/21 00:29 Zithromax/Ns IV 11/26/21 23:59 250 mls/hr Q24H HERACLIO Administration Heparin Sodium/Sodium Chloride 25,000 unit in 500 mls @ 24 mls/hr 11/23/21 18:00 11/24/21 18:17 Heparin/ 0.45% Nacl-25,000 Unit/500 Ml IV 1,250 units/hr TITR HERACLIO 25 mls/hr Administration Protocol 1,200 UNITS/HR Lisinopril 10 mg 11/23/21 10:00 11/24/21 09:26 Lisinopril 10 Mg Tab PO 10 mg QDAY HERACLIO Administration Methylprednisolone Sodium Succinate 80 mg 11/22/21 22:00 11/24/21 13:57 Methylprednisolone Sod Succinate 125 Mg/2 Ml Inj IV 80 mg Q8HR HERACLIO Administration Metoprolol Tartrate 50 mg 11/22/21 22:00 11/24/21 13:58 Metoprolol Tartrate 50 Mg Tab PO 50 mg Q8H HERACLIO Administration Morphine Sulfate 2 mg 11/24/21 11:54 11/24/21 13:57 Morphine 2 Mg/1 Ml Inj IV 2 mg Q8HR PRN Administration Pain, Moderate (4-6) Nicotine 21 mg 11/22/21 22:00 11/24/21 09:26 Nicotine 21 Mg/24 Hr Patch TD Not Given QDAY HERACLIO Ondansetron HCl 4 mg 11/22/21 21:14 Ondansetron 4 Mg/2 Ml Inj IV Q8H PRN Nausea And Vomiting Oxycodone/Acetaminophen 1 tab 11/22/21 21:24 Oxycodone /Acetaminophen 5-325mg Tab PO Q6H PRN Pain, Moderate (4-6) Sodium Chloride 10 ml 11/22/21 22:00 11/24/21 09:26 Sodium Chloride 0.9% 10 Ml Flush Syringe IV 10 ml BID HERACLIO Administration Sodium Chloride 10 ml 11/22/21 21:14 Sodium Chloride 0.9% 10 Ml Flush Syringe IV PRN PRN LINE FLUSH Spironolactone 25 mg 11/23/21 10:00 11/24/21 09:26 Spironolactone 25 Mg Tab PO 25 mg QDAY HERACLIO Administration Warfarin Sodium 7.5 mg 11/24/21 17:00 11/24/21 16:49 Warfarin 7.5 Mg Tab PO 7.5 mg DAILY@1700 HERACLIO Administration
[2021-11-25] MEDS ORDERED: MORPHINE 2 MG/1 ML INJ IM ONE (01:25)
[2021-11-25] MEDS: methylPREDNISolone Sod Succinate 125 MG/2 ML INJ IV SCH ×3 (05:26→21:48)
[2021-11-25 05:51] LABS: INR 1.85 (0.87-1.13)
[2021-11-25 05:52] LABS: Hematocrit 33.6 % (30.3-42.9); Hemoglobin 9.8 gm/dl (10.1-14.3)
[2021-11-25] MEDS: METOPROLOL TARTRATE 50 MG TAB PO SCH ×3 (06:00→21:49)
[2021-11-25] MEDS: MORPHINE 2 MG/1 ML INJ IV PRN ×4 (06:07→20:39)
[2021-11-25] MEDS: FUROSEMIDE 40 MG/4 ML INJ IV SCH (06:10)
[2021-11-25] MEDS: GABAPENTIN 300 MG CAP PO SCH ×3 (08:17→20:39)
[2021-11-25] MEDS: LISINOPRIL 10 MG TAB PO SCH (09:12)
[2021-11-25] MEDS: SPIRONOLACTONE 25 MG TAB PO SCH (09:13)
[2021-11-25] MEDS: NICOTINE 21 MG/24 HR PATCH TD SCH (09:13)
--- NOTE | 2021-11-25 09:23 | Progress Note ---
Assessment and Plan Assessment and plan: --Acute exacerbation of CHF (congestive heart failure) Current Visit: Yes Status: Acute Echocardiogram for ejection fraction was in motion abnormalities and valve function IV Lasix and Aldactone Cardiology consult, Intake and output Daily weights --Acute COPD exacerbation Current Visit: Yes Status: Acute Pulmonary Dr. Goldberg consulted Patient on high-dose steroids for unknown reason Needs pulmonary function studies as outpatient --Acute hypoxic respiratory failure; present on admission Current Visit: Yes Status: Acute O2 sats in ER 80s room air, improved with supplemental oxygen and nebulizer treatments Continue oxygen titrate O2 sats to more than 90%, nebulizers IV steroids, inhalation steroids, pulmonary consult if needed --h/o mechanical mitral valve replacement/aortic valve replacement Continue heparin drip, Coumadin, daily monitoring of INR, target INR 2.5-3.5 Pharmacy managing --Medical noncompliance; Patient strongly counseled the importance of adhering to the treatment plan Recent consequences of not using anticoagulants on a regular basis with therapeutic levels of INR Patient verbalized understanding --Ongoing tobacco use; Tobacco use, cessation counseling Nicotine patch as needed I counseled more than 15 minutes Informed the risks and consequences of ongoing tobacco use Also encouraged him to quit tobacco use --History of bacterial endocarditis 2014; treated Supportive care --Hypertension Current Visit: Yes Status: Chronic Continue antihypertensive and adjust medications as tolerated --Chronic atrial fibrillation/atypical flutter Current Visit: Yes Status: Chronic Continue current medications, long-term anticoagulation Continue Coumadin -h/o hypertrophic cardiomyopathy s/p myomectomy Continue supportive care, cardiology following -- Hyperlipidemia Current Visit: Yes Status: Chronic Continue statins --DVT prophylaxis Current Visit: No Status: Acute Patient is already on heparin and Coumadin -- Advance care planning Current Visit: Yes Status: Acute Disease education conducted, care plan discussed, diagnosis discussed, prognosis discussed. Patient is full code. Patient acknowledges understanding and agreement with care plan. +30 minutes. We will closely monitor the patient and adjust the management as needed Plan of care reviewed with the patient and her nurse Brief history and Hospital course: 56-year-old female patient with significant past medical history of congestive heart failure COPD mechanical valve replacement of mitral and aortic valves on Coumadin noncompliant admitted with acute exacerbation of chronic CHF and subtherapeutic INR cardiology evaluated, medications optimized, started on heparin drip and Coumadin with daily monitoring of INR to therapeutic goal between 2.5 and 3.5, 11/26/2021: Today patient's INR is between 2.5 and 3.5, monitored and dose adjusted by the the pharmacist.who advised to monitor INR again tomorrow morning, if INR is therapeutic between 2.5-3.5 may be discharged on the correct dose of Coumadin. Heparin drip discontinued today Disposition; DC home tomorrow if INR is therapeutic ,,,. History Interval history: I have seen and examined the patient at the bedside Patient's chart and medications reviewed Patient feels slightly better complains of generalized body pains Request for more pain medications Vital signs reviewed Hospitalist Physical - Constitutional Vitals: Temp Pulse Resp BP Pulse Ox 98.3 F 70 18 128/69 93 11/25/21 08:28 11/25/21 09:13 11/25/21 08:28 11/25/21 09:13 11/25/21 08:28 General appearance: Present: no acute distress, well-nourished, obese - EENT Eyes: Present: PERRL, EOM intact - Neck Neck: Present: supple, normal ROM - Respiratory Respiratory effort: normal Respiratory: bilateral: diminished, negative: rales, rhonchi, wheezing - Cardiovascular Rhythm: regular Heart Sounds: Present: S1 & S2 - Extremities Extremities: no ischemia, No edema - Abdominal General gastrointestinal: soft, non-tender, non-distended, normal bowel sounds - Integumentary Integumentary: Present: clear, warm - Psychiatric Psychiatric: appropriate mood/affect, cooperative - Neurologic Neurologic: CNII-XII intact, moves all extremities HEART Score - HEART Score Age: 45-65 Risk factors: > 3 risk factors or hx of atherosclerotic disease Troponin: Troponin T 0.035 ng/mL (0.00-0.029) H 11/24/21 03:02 Troponin: < normal limit - Critical Actions Critical Actions: 4-6 pts:12-16.6% risk of adverse cardiac event. Should be admitted Results - Labs CBC & Chem 7: 11/25/21 05:08 11/26/21 08:01 Labs: Laboratory Last Values WBC 5.5 K/mm3 (4.5-11.0) 11/23/21 09:04 RBC 3.75 M/mm3 (3.65-5.03) 11/23/21 09:04 Hgb 9.8 gm/dl (10.1-14.3) L 11/25/21 05:08 Hct 33.6 % (30.3-42.9) 11/25/21 05:08 MCV 89 fl (79-97) 11/23/21 09:04 MCH 27 pg (28-32) L 11/23/21 09:04 MCHC 30 % (30-34) 11/23/21 09:04 RDW 27.0 % (13.2-15.2) H 11/23/21 09:04 Plt Count 264 K/mm3 (140-440) 11/25/21 05:08 Add Manual Diff Complete 11/23/21 09:04 Total Counted 100 11/23/21 09:04 Seg Neuts % (Manual) 92.0 % (40.0-70.0) H 11/23/21 09:04 Band Neutrophils % 0 % 11/23/21 09:04 Lymphocytes % (Manual) 7.0 % (13.4-35.0) L 11/23/21 09:04 Reactive Lymphs % (Man) 0 % 11/23/21 09:04 Monocytes % (Manual) 1.0 % (0.0-7.3) 11/23/21 09:04 Eosinophils % (Manual) 0 % (0.0-4.3) 11/23/21 09:04 Basophils % (Manual) 0 % (0.0-1.8) 11/23/21 09:04 Metamyelocytes % 0 % 11/23/21 09:04 Myelocytes % 0 % 11/23/21 09:04 Promyelocytes % 0 % 11/23/21 09:04 Blast Cells % 0 % 11/23/21 09:04 Nucleated RBC % Not Reportable 11/23/21 09:04 Seg Neutrophils # Man 5.1 K/mm3 (1.8-7.7) 11/23/21 09:04 Band Neutrophils # 0.0 K/mm3 11/23/21 09:04 Lymphocytes # (Manual) 0.4 K/mm3 (1.2-5.4) L 11/23/21 09:04 Abs React Lymphs (Man) 0.0 K/mm3 11/23/21 09:04 Monocytes # (Manual) 0.1 K/mm3 (0.0-0.8) 11/23/21 09:04 Eosinophils # (Manual) 0.0 K/mm3 (0.0-0.4) 11/23/21 09:04 Basophils # (Manual) 0.0 K/mm3 (0.0-0.1) 11/23/21 09:04 Metamyelocytes # 0.0 K/mm3 11/23/21 09:04 Myelocytes # 0.0 K/mm3 11/23/21 09:04 Promyelocytes # 0.0 K/mm3 11/23/21 09:04 Blast Cells # 0.0 K/mm3 11/23/21 09:04 WBC Morphology Not Reportable 11/23/21 09:04 Hypersegmented Neuts Not Reportable 11/23/21 09:04 Hyposegmented Neuts Not Reportable 11/23/21 09:04 Hypogranular Neuts Not Reportable 11/23/21 09:04 Smudge Cells Not Reportable 11/23/21 09:04 Toxic Granulation Not Reportable 11/23/21 09:04 Toxic Vacuolation Not Reportable 11/23/21 09:04 Dohle Bodies Not Reportable 11/23/21 09:04 Pelger-Huet Anomaly Not Reportable 11/23/21 09:04 Zee Rods Not Reportable 11/23/21 09:04 Platelet Estimate Consistent w auto 11/23/21 09:04 Clumped Platelets Not Reportable 11/23/21 09:04 Plt Clumps, EDTA Not Reportable 11/23/21 09:04 Large Platelets Few 11/23/21 09:04 Giant Platelets Not Reportable 11/23/21 09:04 Platelet Satelliting Not Reportable 11/23/21 09:04 Plt Morphology Comment Not Reportable 11/23/21 09:04 RBC Morphology Not Reportable 11/23/21 09:04 Dimorphic RBCs Not Reportable 11/23/21 09:04 Polychromasia Few 11/23/21 09:04 Hypochromasia 1+ 11/23/21 09:04 Poikilocytosis 1+ 11/23/21 09:04 Anisocytosis 3+ 11/23/21 09:04 Microcytosis Not Reportable 11/23/21 09:04 Macrocytosis Not Reportable 11/23/21 09:04 Spherocytes Not Reportable 11/23/21 09:04 Pappenheimer Bodies Not Reportable 11/23/21 09:04 Sickle Cells Not Reportable 11/23/21 09:04 Target Cells Not Reportable 11/23/21 09:04 Tear Drop Cells Not Reportable 11/23/21 09:04 Ovalocytes Not Reportable 11/23/21 09:04 Helmet Cells Not Reportable 11/23/21 09:04 [place] Bodies Not Reportable 11/23/21 09:04 Goldvein Rings Not Reportable 11/23/21 09:04 Nilay Cells 1+ 11/23/21 09:04 Bite Cells Not Reportable 11/23/21 09:04 Crenated Cell Not Reportable 11/23/21 09:04 Elliptocytes Not Reportable 11/23/21 09:04 Acanthocytes (Spur) Not Reportable 11/23/21 09:04 Rouleaux Not Reportable 11/23/21 09:04 Hemoglobin C Crystals Not Reportable 11/23/21 09:04 Schistocytes Not Reportable 11/23/21 09:04 Malaria parasites Not Reportable 11/23/21 09:04 Garrett Bodies Not Reportable 11/23/21 09:04 Hem Pathologist Commnt No 11/23/21 09:04 PT 23.7 Sec. (12.2-14.9) H 11/25/21 05:08 INR 1.85 (0.87-1.13) H 11/25/21 05:08 APTT 30.1 Sec. (24.2-36.6) 11/23/21 19:59 Heparin Anti-Xa Level 0.19 U.I./ml (0.3-0.7) L 11/24/21 10:43 Sodium 139 mmol/L (137-145) 11/23/21 09:04 Potassium 4.6 mmol/L (3.6-5.0) 11/23/21 09:04 Chloride 104.5 mmol/L (98-107) 11/23/21 09:04 Carbon Dioxide 19 mmol/L (22-30) L 11/23/21 09:04 Anion Gap 20 mmol/L 11/23/21 09:04 BUN 17 mg/dL (7-17) 11/23/21 09:04 Creatinine 1.3 mg/dL (0.6-1.2) H 11/23/21 09:04 Estimated GFR 51 ml/min 11/23/21 09:04 BUN/Creatinine Ratio 13 % 11/23/21 09:04 Glucose 179 mg/dL (65-100) H 11/23/21 09:04 Calcium 9.2 mg/dL (8.4-10.2) 11/23/21 09:04 Total Bilirubin 1.00 mg/dL (0.1-1.2) 11/23/21 09:04 Direct Bilirubin 0.5 mg/dL (0-0.2) H 11/22/21 13:44 Indirect Bilirubin 1.6 mg/dL 11/22/21 13:44 AST 15 units/L (5-40) 11/23/21 09:04 ALT 7 units/L (7-56) 11/23/21 09:04 Alkaline Phosphatase 85 units/L (35-129) 11/23/21 09:04 Total Creatine Kinase 60 units/L (30-135) 11/23/21 21:29 CK-MB (CK-2) 2.9 ng/mL (0.0-4.0) 11/23/21 21:29 CK-MB (CK-2) Rel Index 4.8 (0-4) H 11/23/21 21:29 Troponin T 0.035 ng/mL (0.00-0.029) H 11/24/21 03:02 NT-Pro-B Natriuret Pep 6072 pg/mL (0-900) H 11/22/21 13:44 Total Protein 8.1 g/dL (6.3-8.2) 11/23/21 09:04 Albumin 3.4 g/dL (3.9-5) L 11/23/21 09:04 Albumin/Globulin Ratio 0.7 % 11/23/21 09:04 Triglycerides 85 mg/dL (2-149) 11/22/21 08:17 Cholesterol 162 mg/dL (50-199) 11/22/21 08:17 LDL Cholesterol Direct 101 mg/dL (50-130) 11/22/21 08:17 HDL Cholesterol 42 mg/dL (40-59) 11/22/21 08:17 Cholesterol/HDL Ratio 3.85 % 11/22/21 08:17 Amylase 39 units/L (27-131) 11/22/21 08:17 Lipase 16 units/L (13-60) 11/22/21 08:17 Urine Color Yellow (Yellow) 11/23/21 Unknown Urine Turbidity Clear (Clear) 11/23/21 Unknown Urine pH 5.0 (5.0-7.0) 11/23/21 Unknown Ur Specific [place] 1.012 (1.003-1.030) 11/23/21 Unknown Urine Protein <15 mg/dl mg/dL (Negative) 11/23/21 Unknown Urine Glucose (UA) Neg mg/dL (Negative) 11/23/21 Unknown Urine Ketones Neg mg/dL (Negative) 11/23/21 Unknown Urine Blood Neg (Negative) 11/23/21 Unknown Urine Nitrite Neg (Negative) 11/23/21 Unknown Urine Bilirubin Neg (Negative) 11/23/21 Unknown Urine Urobilinogen < 2.0 mg/dL (<2.0) 11/23/21 Unknown Ur Leukocyte Esterase Neg (Negative) 11/23/21 Unknown Urine WBC (Auto) 1.0 /HPF (0.0-6.0) 11/23/21 Unknown Urine RBC (Auto) < 1.0 /HPF (0.0-6.0) 11/23/21 Unknown U Epithel Cells (Auto) 1.0 /HPF (0-13.0) 11/23/21 Unknown Urine Bacteria (Auto) 1+ /HPF (Negative) 11/23/21 Unknown Hyaline Casts 1 /LPF 11/23/21 Unknown Elkins/IV: Voiding Method External Female Catheter Active Medications - Current Medications Current Medications: Generic Name Dose Route Start Last Admin Trade Name Freq PRN Reason Stop Dose Admin Acetaminophen 650 mg 11/22/21 21:14 Acetaminophen 325 Mg Tab PO Q4H PRN Pain MILD(1-3)/Fever >100.5/VACA Albuterol 2.5 mg 11/22/21 21:39 Albuterol 2.5 Mg/3 Ml Nebu IH Q3HRT PRN Wheezing Albuterol/Ipratropium 1 ampul 11/24/21 08:00 11/24/21 21:26 Ipratropium/Albuterol Sulfate 3 Ml Ampul.Neb IH Not Given TIDRT HERACLIO Atorvastatin Calcium 40 mg 11/22/21 22:00 11/24/21 22:09 Atorvastatin 40 Mg Tab PO 40 mg QHS HERACLIO Administration Azithromycin 500 mg 11/25/21 22:00 Azithromycin 250 Mg Tab PO 11/26/21 22:01 Q24H [facility] Protocol Digoxin 0.25 mg 11/23/21 17:00 11/24/21 16:49 Digoxin 0.25 Mg Tab PO 0.25 mg DAILY@1700 [facility] Administration Docusate Sodium 100 mg 11/22/21 21:12 Docusate Sodium 100 Mg Cap PO BID PRN Constipation Furosemide 40 mg 11/23/21 06:00 11/25/21 06:10 Furosemide 40 Mg/4 Ml Inj IV 40 mg QDAY@0600 [facility] Administration Gabapentin 300 mg 11/23/21 08:00 11/25/21 08:17 Gabapentin 300 Mg Cap PO 300 mg TID [facility] Administration Ceftriaxone Sodium 2 gm in 100 mls @ 200 mls/hr 11/22/21 22:00 11/24/21 22:11 Rocephin/Ns 2 Gm/100 Ml IV 11/26/21 23:59 200 mls/hr Q24H [facility] Administration Protocol Heparin Sodium/Sodium Chloride 25,000 unit in 500 mls @ 24 mls/hr 11/23/21 18:00 11/24/21 18:17 Heparin/ 0.45% Nacl-25,000 Unit/500 Ml IV 1,250 units/hr TITR HERACLIO 25 mls/hr Administration Protocol 1,200 UNITS/HR Lisinopril 10 mg 11/23/21 10:00 11/25/21 09:12 Lisinopril 10 Mg Tab PO 10 mg QDAY [facility] Administration Methylprednisolone Sodium Succinate 80 mg 11/22/21 22:00 11/25/21 05:26 Methylprednisolone Sod Succinate 125 Mg/2 Ml Inj IV 80 mg Q8HR HERACL[facility] Administration Metoprolol Tartrate 50 mg 11/22/21 22:00 11/25/21 06:00 Metoprolol Tartrate 50 Mg Tab PO 50 mg Q8H [facility] Administration Morphine Sulfate 2 mg 11/24/21 11:54 11/25/21 06:07 Morphine 2 Mg/1 Ml Inj IV 2 mg Q8HR PRN Administration Pain, Moderate (4-6) Nicotine 21 mg 11/22/21 22:00 11/25/21 09:13 Nicotine 21 Mg/24 Hr Patch TD Not Given QDAY [facility] Ondansetron HCl 4 mg 11/22/21 21:14 Ondansetron 4 Mg/2 Ml Inj IV Q8H PRN Nausea And Vomiting Oxycodone/Acetaminophen 1 tab 11/22/21 21:24 Oxycodone /Acetaminophen 5-325mg Tab PO Q6H PRN Pain, Moderate (4-6) Sodium Chloride 10 ml 11/22/21 22:00 11/25/21 09:13 Sodium Chloride 0.9% 10 Ml Flush Syringe IV 10 ml BID HERACLIO Administration Sodium Chloride 10 ml 11/22/21 21:14 Sodium Chloride 0.9% 10 Ml Flush Syringe IV PRN PRN LINE FLUSH Spironolactone 25 mg 11/23/21 10:00 11/25/21 09:13 Spironolactone 25 Mg Tab PO 25 mg QDAY HERACLIO Administration Warfarin Sodium 7.5 mg 11/24/21 17:00 11/24/21 16:49 Warfarin 7.5 Mg Tab PO 7.5 mg DAILY@1700 HERACLIO Administration
[2021-11-25] MEDS: IPRATROPIUM/ALBUTEROL SULFATE 3 ML AMPUL.NEB IH SCH ×3 (11:11→21:39)
--- NOTE | 2021-11-25 12:23 | Progress Note ---
Assessment and Plan - Patient Problems (1) Warfarin anticoagulation Current Visit: Yes Status: Acute Plan to address problem: The patient has a mechanical aortic valve, mechanical mitral valve, and chronic atrial fibrillation. She requires uninterrupted warfarin therapy with a target INR of 2.5-3.5. Patient was subtherapeutic on presentation, and is currently on bridge therapy with heparin. Continue heparin until INR is 2.5 or greater. (2) Mechanical heart valve present Current Visit: Yes Status: Acute Plan to address problem: The patient has a mechanical aortic valve, mechanical mitral valve, and chronic atrial fibrillation. She requires uninterrupted warfarin therapy with a target INR of 2.5-3.5. Patient was subtherapeutic on presentation, and is currently on bridge therapy with heparin. Continue heparin until INR is 2.5 or greater. (3) Dilated cardiomyopathy Current Visit: Yes Status: Acute Plan to address problem: Guideline directed medical therapy for cardiomyopathy and chronic left ventricular systolic dysfunction. Subjective Date of service: 11/25/21 Principal diagnosis: Nausea vomiting and diarrhea Interval history: The patient is comfortable, no acute distress. No cardiac complaints. No new cardiac events reported. Her INR is trending toward therapeutic range, today was 1.85. Objective Vital Signs Temp Pulse Pulse Resp Resp BP BP 11/25/21 09:13 70 128/69 11/25/21 09:12 70 128/69 11/25/21 08:28 98.3 F 71 18 128/69 11/25/21 06:23 11/25/21 05:40 98.5 F 70 12 140/63 11/25/21 01:02 98.4 F 70 20 126/64 11/24/21 23:00 98.5 F 71 12 140/63 11/24/21 22:00 70 126/64 11/24/21 20:54 98.7 F 69 16 126/62 11/24/21 16:49 70 136/67 11/24/21 16:35 99.2 F 70 18 136/67 11/24/21 15:16 82 16 11/24/21 13:00 70 Pulse Ox 11/25/21 09:13 11/25/21 09:12 11/25/21 08:28 93 11/25/21 06:23 100 11/25/21 05:40 89 11/25/21 01:02 90 11/24/21 23:00 100 11/24/21 22:00 90 11/24/21 20:54 90 11/24/21 16:49 11/24/21 16:35 92 11/24/21 15:16 11/24/21 13:00 - Physical Examination General: No Apparent Distress HEENT: Positive: PERRL Neck: Positive: neck supple Cardiac: Positive: Irregularly Regular, Systolic Murmur Lungs: Positive: Decreased Breath Sounds Neuro: Positive: Grossly Intact Abdomen: Positive: Soft Skin: Positive: Clear Extremities: Absent: edema - Labs and Meds Coagulation 11/25/21 Range/Units 05:08 PT 23.7 H (12.2-14.9) Sec. INR 1.85 H (0.87-1.13) CBC 11/25/21 Range/Units 05:08 Hgb 9.8 L (10.1-14.3) gm/dl Hct 33.6 (30.3-42.9) % Plt Count 264 (140-440) K/mm3 - Imaging and Cardiology EKG: report reviewed Pacemaker: ventricular pacing w/capt
[2021-11-25] MEDS: WARFARIN 7.5 MG TAB PO SCH (16:40)
[2021-11-25] MEDS: DIGOXIN 0.25 MG TAB PO SCH (16:40)
[2021-11-25] MEDS: HEPARIN/ 0.45% NACL DRIP 25,000 UNIT/500 ML BAG IV SCH (18:46)
[2021-11-25] MEDS: AZITHROMYCIN 250 MG TAB PO SCH (21:42)
[2021-11-25] MEDS: cefTRIAXone/NS 2 GM/100 ML 2 GM/100 ML BAG IV SCH (21:42)
[2021-11-26] MEDS: MORPHINE 2 MG/1 ML INJ IV PRN ×6 (01:15→22:40)
[2021-11-26 06:13] LABS: INR 3.45 (0.87-1.13)
[2021-11-26] MEDS: methylPREDNISolone Sod Succinate 125 MG/2 ML INJ IV SCH ×3 (06:18→21:48)
[2021-11-26] MEDS: FUROSEMIDE 40 MG/4 ML INJ IV SCH (06:18)
[2021-11-26 08:28] LABS: INR 3.46 (0.87-1.13)
[2021-11-26] MEDS: METOPROLOL TARTRATE 50 MG TAB PO SCH ×3 (08:35→23:58)
[2021-11-26] MEDS: GABAPENTIN 300 MG CAP PO SCH ×2 (08:36→18:40)
[2021-11-26] MEDS: SPIRONOLACTONE 25 MG TAB PO SCH (09:17)
[2021-11-26] MEDS: LISINOPRIL 10 MG TAB PO SCH (09:17)
[2021-11-26 09:19] LABS: Calcium 8.8 mg/dL (8.4-10.2)
[2021-11-26] MEDS: NICOTINE 21 MG/24 HR PATCH TD SCH (09:26)
[2021-11-26] MEDS: IPRATROPIUM/ALBUTEROL SULFATE 3 ML AMPUL.NEB IH SCH ×3 (09:42→20:18)
--- NOTE | 2021-11-26 14:14 | Progress Note ---
Assessment and Plan Assessment and plan: --Acute exacerbation of CHF (congestive heart failure) Current Visit: Yes Status: Acute Echocardiogram for ejection fraction was in motion abnormalities and valve function IV Lasix and Aldactone Cardiology consult, Intake and output Daily weights --Acute COPD exacerbation Current Visit: Yes Status: Acute Pulmonary Dr. Goldberg consulted Patient on high-dose steroids for unknown reason Needs pulmonary function studies as outpatient --Acute hypoxic respiratory failure; present on admission Current Visit: Yes Status: Acute O2 sats in ER 80s room air, improved with supplemental oxygen and nebulizer treatments Continue oxygen titrate O2 sats to more than 90%, nebulizers IV steroids, inhalation steroids, pulmonary consult if needed --h/o mechanical mitral valve replacement/aortic valve replacement Continue heparin drip, Coumadin, daily monitoring of INR, target INR 2.5-3.5 Pharmacy managing --Subtherapeutic INR; target INR 2.5-3.5 INR 3.46 today cardiology following. Pharmacy adjusted Coumadin dose will monitor INR tomorrow --Medical noncompliance; Patient strongly counseled the importance of adhering to the treatment plan Recent consequences of not using anticoagulants on a regular basis with therapeutic levels of INR Patient verbalized understanding --Ongoing tobacco use; Tobacco use, cessation counseling Nicotine patch as needed I counseled more than 15 minutes Informed the risks and consequences of ongoing tobacco use Also encouraged him to quit tobacco use --History of bacterial endocarditis 2014; treated Supportive care --Hypertension Current Visit: Yes Status: Chronic Continue antihypertensive and adjust medications as tolerated --Chronic atrial fibrillation/atypical flutter Current Visit: Yes Status: Chronic Continue current medications, long-term anticoagulation Continue Coumadin -h/o hypertrophic cardiomyopathy s/p myomectomy Continue supportive care, cardiology following -- Hyperlipidemia Current Visit: Yes Status: Chronic Continue statins --DVT prophylaxis Current Visit: No Status: Acute Patient is already on heparin and Coumadin -- Advance care planning Current Visit: Yes Status: Acute Disease education conducted, care plan discussed, diagnosis discussed, prognosis discussed. Patient is full code. Patient acknowledges understanding and agreement with care plan. +30 minutes. We will closely monitor the patient and adjust the management as needed Plan of care reviewed with the patient and her nurse Brief history and Hospital course: 56-year-old female patient with significant past medical history of congestive heart failure COPD mechanical valve replacement of mitral and aortic valves on Coumadin noncompliant admitted with acute exacerbation of chronic CHF and subtherapeutic INR cardiology evaluated, medications optimized, started on heparin drip and Coumadin with daily monitoring of INR to therapeutic goal between 2.5 and 3.5, 11/26/2021: Today patient's INR is between 2.5 and 3.5, monitored and dose adjusted by the [facility] pharmacist.who advised to monitor INR again tomorrow morning, if INR is therapeutic between 2.5-3.5 may be discharged on the correct dose of Coumadin. Heparin drip discontinued today Disposition; DC home tomorrow if INR is therapeutic History Interval history: I have seen and examined the patient at the bedside Patient's chart and medications reviewed Patient feels slightly better anxious to go home Her INR is therapeutic between 2.5 and 3.5 Heparin drip discontinued Patient complains of generalized body pain which is chronic Hospitalist Physical - Constitutional Vitals: Temp Pulse Resp BP Pulse Ox 98.9 F 71 18 155/71 93 11/26/21 07:35 11/26/21 09:17 11/26/21 07:35 11/26/21 07:35 11/26/21 07:35 General appearance: Present: no acute distress, well-nourished, obese - EENT Eyes: Present: PERRL, EOM intact - Neck Neck: Present: supple, normal ROM - Respiratory Respiratory effort: normal Respiratory: bilateral: diminished, negative: rales, rhonchi, wheezing - Cardiovascular Rhythm: regular Heart Sounds: Present: S1 & S2 - Extremities Extremities: no ischemia, No edema - Abdominal General gastrointestinal: soft, non-tender, non-distended - Integumentary Integumentary: Present: clear, warm - Psychiatric Psychiatric: appropriate mood/affect, cooperative - Neurologic Neurologic: moves all extremities HEART Score - HEART Score Age: 45-65 Risk factors: > 3 risk factors or hx of atherosclerotic disease Troponin: Troponin T 0.035 ng/mL (0.00-0.029) H 11/24/21 03:02 Troponin: < normal limit - Critical Actions Critical Actions: 4-6 pts:12-16.6% risk of adverse cardiac event. Should be ad mitted Results - Labs CBC & Chem 7: 11/25/21 05:08 11/26/21 08:01 Labs: Laboratory Last Values WBC 5.5 K/mm3 (4.5-11.0) 11/23/21 09:04 RBC 3.75 M/mm3 (3.65-5.03) 11/23/21 09:04 Hgb 9.8 gm/dl (10.1-14.3) L 11/25/21 05:08 Hct 33.6 % (30.3-42.9) 11/25/21 05:08 MCV 89 fl (79-97) 11/23/21 09:04 MCH 27 pg (28-32) L 11/23/21 09:04 MCHC 30 % (30-34) 11/23/21 09:04 RDW 27.0 % (13.2-15.2) H 11/23/21 09:04 Plt Count 264 K/mm3 (140-440) 11/25/21 05:08 Add Manual Diff Complete 11/23/21 09:04 Total Counted 100 11/23/21 09:04 Seg Neuts % (Manual) 92.0 % (40.0-70.0) H 11/23/21 09:04 Band Neutrophils % 0 % 11/23/21 09:04 Lymphocytes % (Manual) 7.0 % (13.4-35.0) L 11/23/21 09:04 Reactive Lymphs % (Man) 0 % 11/23/21 09:04 Monocytes % (Manual) 1.0 % (0.0-7.3) 11/23/21 09:04 Eosinophils % (Manual) 0 % (0.0-4.3) 11/23/21 09:04 Basophils % (Manual) 0 % (0.0-1.8) 11/23/21 09:04 Metamyelocytes % 0 % 11/23/21 09:04 Myelocytes % 0 % 11/23/21 09:04 Promyelocytes % 0 % 11/23/21 09:04 Blast Cells % 0 % 11/23/21 09:04 Nucleated RBC % Not Reportable 11/23/21 09:04 Seg Neutrophils # Man 5.1 K/mm3 (1.8-7.7) 11/23/21 09:04 Band Neutrophils # 0.0 K/mm3 11/23/21 09:04 Lymphocytes # (Manual) 0.4 K/mm3 (1.2-5.4) L 11/23/21 09:04 Abs React Lymphs (Man) 0.0 K/mm3 11/23/21 09:04 Monocytes # (Manual) 0.1 K/mm3 (0.0-0.8) 11/23/21 09:04 Eosinophils # (Manual) 0.0 K/mm3 (0.0-0.4) 11/23/21 09:04 Basophils # (Manual) 0.0 K/mm3 (0.0-0.1) 11/23/21 09:04 Metamyelocytes # 0.0 K/mm3 11/23/21 09:04 Myelocytes # 0.0 K/mm3 11/23/21 09:04 Promyelocytes # 0.0 K/mm3 11/23/21 09:04 Blast Cells # 0.0 K/mm3 11/23/21 09:04 WBC Morphology Not Reportable 11/23/21 09:04 Hypersegmented Neuts Not Reportable 11/23/21 09:04 Hyposegmented Neuts Not Reportable 11/23/21 09:04 Hypogranular Neuts Not Reportable 11/23/21 09:04 Smudge Cells Not Reportable 11/23/21 09:04 Toxic Granulation Not Reportable 11/23/21 09:04 Toxic Vacuolation Not Reportable 11/23/21 09:04 Dohle Bodies Not Reportable 11/23/21 09:04 Pelger-Huet Anomaly Not Reportable 11/23/21 09:04 Zee Rods Not Reportable 11/23/21 09:04 Platelet Estimate Consistent w auto 11/23/21 09:04 Clumped Platelets Not Reportable 11/23/21 09:04 Plt Clumps, EDTA Not Reportable 11/23/21 09:04 Large Platelets Few 11/23/21 09:04 Giant Platelets Not Reportable 11/23/21 09:04 Platelet Satelliting Not Reportable 11/23/21 09:04 Plt Morphology Comment Not Reportable 11/23/21 09:04 RBC Morphology Not Reportable 11/23/21 09:04 Dimorphic RBCs Not Reportable 11/23/21 09:04 Polychromasia Few 11/23/21 09:04 Hypochromasia 1+ 11/23/21 09:04 Poikilocytosis 1+ 11/23/21 09:04 Anisocytosis 3+ 11/23/21 09:04 Microcytosis Not Reportable 11/23/21 09:04 Macrocytosis Not Reportable 11/23/21 09:04 Spherocytes Not Reportable 11/23/21 09:04 Pappenheimer Bodies Not Reportable 11/23/21 09:04 Sickle Cells Not Reportable 11/23/21 09:04 Target Cells Not Reportable 11/23/21 09:04 Tear Drop Cells Not Reportable 11/23/21 09:04 Ovalocytes Not Reportable 11/23/21 09:04 Helmet Cells Not Reportable 11/23/21 09:04 Mendez-[place] Bodies Not Reportable 11/23/21 09:04 Wilbraham Rings Not Reportable 11/23/21 09:04 Nilay Cells 1+ 11/23/21 09:04 Bite Cells Not Reportable 11/23/21 09:04 Crenated Cell Not Reportable 11/23/21 09:04 Elliptocytes Not Reportable 11/23/21 09:04 Acanthocytes (Spur) Not Reportable 11/23/21 09:04 Rouleaux Not Reportable 11/23/21 09:04 Hemoglobin C Crystals Not Reportable 11/23/21 09:04 Schistocytes Not Reportable 11/23/21 09:04 Malaria parasites Not Reportable 11/23/21 09:04 Garrett Bodies Not Reportable 11/23/21 09:04 Hem Pathologist Commnt No 11/23/21 09:04 PT 39.6 Sec. (12.2-14.9) H 11/26/21 08:01 INR 3.46 (0.87-1.13) H 11/26/21 08:01 APTT 30.1 Sec. (24.2-36.6) 11/23/21 19:59 Heparin Anti-Xa Level 0.27 U.I./ml (0.3-0.7) L 11/25/21 15:41 Sodium 139 mmol/L (137-145) 11/26/21 08:01 Potassium 4.0 mmol/L (3.6-5.0) 11/26/21 08:01 Chloride 104.5 mmol/L (98-107) 11/26/21 08:01 Carbon Dioxide 24 mmol/L (22-30) 11/26/21 08:01 Anion Gap 15 mmol/L 11/26/21 08:01 BUN 42 mg/dL (7-17) H 11/26/21 08:01 Creatinine 1.2 mg/dL (0.6-1.2) 11/26/21 08:01 Estimated GFR 56 ml/min 11/26/21 08:01 BUN/Creatinine Ratio 35 % 11/26/21 08:01 Glucose 159 mg/dL (65-100) H 11/26/21 08:01 Calcium 8.8 mg/dL (8.4-10.2) 11/26/21 08:01 Total Bilirubin 1.00 mg/dL (0.1-1.2) 11/23/21 09:04 Direct Bilirubin 0.5 mg/dL (0-0.2) H 11/22/21 13:44 Indirect Bilirubin 1.6 mg/dL 11/22/21 13:44 AST 15 units/L (5-40) 11/23/21 09:04 ALT 7 units/L (7-56) 11/23/21 09:04 Alkaline Phosphatase 85 units/L (35-129) 11/23/21 09:04 Total Creatine Kinase 60 units/L (30-135) 11/23/21 21:29 CK-MB (CK-2) 2.9 ng/mL (0.0-4.0) 11/23/21 21: CK-MB (CK-2) Rel Index 4.8 (0-4) H 11/23/21 21:29 Troponin T 0.035 ng/mL (0.00-0.029) H 11/24/21 03:02 NT-Pro-B Natriuret Pep 6072 pg/mL (0-900) H 11/22/21 13:44 Total Protein 8.1 g/dL (6.3-8.2) 11/23/21 09:04 Albumin 3.4 g/dL (3.9-5) L 11/23/21 09:04 Albumin/Globulin Ratio 0.7 % 11/23/21 09:04 Triglycerides 85 mg/dL (2-149) 11/22/21 08:17 Cholesterol 162 mg/dL (50-199) 11/22/21 08:17 LDL Cholesterol Direct 101 mg/dL (50-130) 11/22/21 08:17 HDL Cholesterol 42 mg/dL (40-59) 11/22/21 08:17 Cholesterol/HDL Ratio 3.85 % 11/22/21 08:17 Amylase 39 units/L (27-131) 11/22/21 08:17 Lipase 16 units/L (13-60) 11/22/21 08:17 Urine Color Yellow (Yellow) 11/23/21 Unknown Urine Turbidity Clear (Clear) 11/23/21 Unknown Urine pH 5.0 (5.0-7.0) 11/23/21 Unknown Ur Specific [place] 1.012 (1.003-1.030) 11/23/21 Unknown Urine Protein <15 mg/dl mg/dL (Negative) 11/23/21 Unknown Urine Glucose (UA) Neg mg/dL (Negative) 11/23/21 Unknown Urine Ketones Neg mg/dL (Negative) 11/23/21 Unknown Urine Blood Neg (Negative) 11/23/21 Unknown Urine Nitrite Neg (Negative) 11/23/21 Unknown Urine Bilirubin Neg (Negative) 11/23/21 Unknown Urine Urobilinogen < 2.0 mg/dL (<2.0) 11/23/21 Unknown Ur Leukocyte Esterase Neg (Negative) 11/23/21 Unknown Urine WBC (Auto) 1.0 /HPF (0.0-6.0) 11/23/21 Unknown Urine RBC (Auto) < 1.0 /HPF (0.0-6.0) 11/23/21 Unknown U Epithel Cells (Auto) 1.0 /HPF (0-13.0) 11/23/21 Unknown Urine Bacteria (Auto) 1+ /HPF (Negative) 11/23/21 Unknown Hyaline Casts 1 /LPF 11/23/21 Unknown Elkins/IV: Voiding Method External Female Catheter Active Medications - Current Medications Current Medications: Generic Name Dose Route Start Last Admin Trade Name Freq PRN Reason Stop Dose Admin Acetaminophen 650 mg 11/22/21 21:14 Acetaminophen 325 Mg Tab PO Q4H PRN Pain MILD(1-3)/Fever >100.5/VACA Albuterol 2.5 mg 11/22/21 21:39 Albuterol 2.5 Mg/3 Ml Nebu IH Q3HRT PRN Wheezing Albuterol/Ipratropium 1 ampul 11/24/21 08:00 11/26/21 09:42 Ipratropium/Albuterol Sulfate 3 Ml Ampul.Neb IH 1 ampul TIDRT HERACLIO Administration Atorvastatin Calcium 40 mg 11/22/21 22:00 11/25/21 21:48 Atorvastatin 40 Mg Tab PO 40 mg QHS HERACLIO Administration Azithromycin 500 mg 11/25/21 22:00 11/25/21 21:42 Azithromycin 250 Mg Tab PO 11/26/21 22:01 500 mg Q24H HERACLIO Administration Protocol Digoxin 0.25 mg 11/23/21 17:00 11/25/21 16:40 Digoxin 0.25 Mg Tab PO 0.25 mg DAILY@1700 HERACLIO Administration Docusate Sodium 100 mg 11/22/21 21:12 Docusate Sodium 100 Mg Cap PO BID PRN Constipation Furosemide 40 mg 11/23/21 06:00 11/26/21 06:18 Furosemide 40 Mg/4 Ml Inj IV 40 mg QDAY@0600 HERACLIO Administration Gabapentin 300 mg 11/23/21 08:00 11/26/21 08:36 Gabapentin 300 Mg Cap PO 300 mg TID HERACLIO Administration Ceftriaxone Sodium 2 gm in 100 mls @ 200 mls/hr 11/22/21 22:00 11/25/21 21:42 Rocephin/Ns 2 Gm/100 Ml IV 11/26/21 23:59 200 mls/hr Q24H HERACLIO Administration Protocol Lisinopril 10 mg 11/23/21 10:00 11/26/21 09:17 Lisinopril 10 Mg Tab PO 10 mg QDAY [facility] Administration Methylprednisolone Sodium Succinate 80 mg 11/22/21 22:00 11/26/21 14:05 Methylprednisolone Sod Succinate 125 Mg/2 Ml Inj IV 80 mg Q8HR HERACLIO Administration Metoprolol Tartrate 50 mg 11/22/21 22:00 11/26/21 08:35 Metoprolol Tartrate 50 Mg Tab PO 50 mg Q8H HERACLIO Administration Morphine Sulfate 2 mg 11/25/21 12:00 11/26/21 14:09 Morphine 2 Mg/1 Ml Inj IV 2 mg Q4H PRN Administration Pain, Moderate (4-6) Nicotine 21 mg 11/22/21 22:00 11/26/21 09:26 Nicotine 21 Mg/24 Hr Patch TD Not Given QDAY [facility] Ondansetron HCl 4 mg 11/22/21 21:14 Ondansetron 4 Mg/2 Ml Inj IV Q8H PRN Nausea And Vomiting Sodium Chloride 10 ml 11/22/21 22:00 11/26/21 09:56 Sodium Chloride 0.9% 10 Ml Flush Syringe IV 10 ml BID HERACLIO Administration Sodium Chloride 10 ml 11/22/21 21:14 11/25/21 20:42 Sodium Chloride 0.9% 10 Ml Flush Syringe IV 10 ml PRN PRN Administration LINE FLUSH Spironolactone 25 mg 11/23/21 10:00 11/26/21 09:17 Spironolactone 25 Mg Tab PO 25 mg QDAY HERACLIO Administration Warfarin Sodium 3 mg 11/26/21 17:00 Warfarin 1 Mg Tab PO DAILY@1700 [facility] Nutrition/Malnutrition Assess - Dietary Evaluation Nutrition/Malnutrition Findings: Nutrition Notes Start: 11/25/21 15:30 Freq: Status: Active Protocol: Document 11/25/21 15:30 CARLOS (Rec: 11/25/21 15:31 CARLOS [id number]) Nutrition Notes Need for Assessment generated from: Education Initial or Follow up Brief Note Pertinent Medications Coumadin Subjective/Other Information Pt screened for coumadin use. She denies need for diet education as she has been taking coumadin for 13 yrs and is familiar with food sources of Vit K. Minimum of two criteria No
[2021-11-26] MEDS ORDERED: WARFARIN 1 MG TAB PO SCH (17:00)
[2021-11-26] MEDS: DIGOXIN 0.25 MG TAB PO SCH (18:12)
--- NOTE | 2021-11-26 18:16 | Progress Note ---
Assessment and Plan - Patient Problems (1) Warfarin anticoagulation Current Visit: Yes Status: Acute Plan to address problem: The patient has a mechanical aortic valve, mechanical mitral valve, and chronic atrial fibrillation. She requires uninterrupted warfarin therapy with a target INR of 2.5-3.5. Patient was subtherapeutic on presentation, and is currently on bridge therapy with heparin. Continue heparin until INR is 2.5 or greater. (2) Mechanical heart valve present Current Visit: Yes Status: Acute Plan to address problem: The patient has a mechanical aortic valve, mechanical mitral valve, and chronic atrial fibrillation. She requires uninterrupted warfarin therapy with a target INR of 2.5-3.5. Patient was subtherapeutic on presentation, and is currently on bridge therapy with heparin. Continue heparin until INR is 2.5 or greater. (3) Dilated cardiomyopathy Current Visit: Yes Status: Acute Plan to address problem: Guideline directed medical therapy for cardiomyopathy and chronic left ventricular systolic dysfunction. Subjective Date of service: 11/26/21 Principal diagnosis: Nausea vomiting and diarrhea Interval history: Patient is comfortable, no cardiac complaints, no new cardiac events reported. INR is now therapeutic, 3.46 today. Objective Vital Signs Temp Pulse Pulse Resp Resp Resp BP 11/26/21 18:12 70 11/26/21 16:26 99.7 F H 70 16 139/66 11/26/21 13:00 70 11/26/21 11:38 98.3 F 69 18 142/58 11/26/21 10:00 11/26/21 09:17 71 11/26/21 08:35 71 11/26/21 07:35 98.9 F 70 18 155/71 11/26/21 04:00 70 11/26/21 03:29 98.2 F 72 19 147/69 11/26/21 01:15 17 11/26/21 00:00 70 11/25/21 23:07 97.7 F 70 18 141/70 11/25/21 22:00 17 11/25/21 21:49 70 125/69 11/25/21 21:39 75 16 11/25/21 20:00 71 11/25/21 19:22 98.3 F 70 14 125/69 Pulse Ox 11/26/21 18:12 11/26/21 16:26 96 11/26/21 13:00 11/26/21 11:38 92 11/26/21 10:00 95 11/26/21 09:17 11/26/21 08:35 11/26/21 07:35 93 11/26/21 04:00 11/26/21 03:29 99 11/26/21 01:15 11/26/21 00:00 11/25/21 23:07 100 11/25/21 22:00 95 11/25/21 21:49 11/25/21 21:39 11/25/21 20:00 11/25/21 19:22 92 - Physical Examination General: No Apparent Distress HEENT: Positive: PERRL Neck: Positive: neck supple Cardiac: Positive: Reg Rate and Rhythm, Systolic Murmur Lungs: Positive: Decreased Breath Sounds Neuro: Positive: Grossly Intact Abdomen: Positive: Soft Skin: Positive: Clear Extremities: Absent: edema - Labs and Meds Coagulation 11/26/21 11/26/21 Range/Units 05:26 08:01 PT 39.5 H 39.6 H (12.2-14.9) Sec. INR 3.45 H 3.46 H (0.87-1.13) Comprehensive Metabolic Panel 11/26/21 Range/Units 08:01 Sodium 139 (137-145) mmol/L Potassium 4.0 (3.6-5.0) mmol/L Chloride 104.5 (98-107) mmol/L Carbon Dioxide 24 (22-30) mmol/L BUN 42 H (7-17) mg/dL Creatinine 1.2 (0.6-1.2) mg/dL Glucose 159 H (65-100) mg/dL Calcium 8.8 (8.4-10.2) mg/dL - Imaging and Cardiology EKG: report reviewed Pacemaker: ventricular pacing w/capt
[2021-11-26] MEDS: cefTRIAXone/NS 2 GM/100 ML 2 GM/100 ML BAG IV SCH (21:48)
[2021-11-26] MEDS: AZITHROMYCIN 250 MG TAB PO SCH (21:48)
[2021-11-27] MEDS: MORPHINE 2 MG/1 ML INJ IV PRN ×2 (05:57→10:36)
[2021-11-27] MEDS: METOPROLOL TARTRATE 50 MG TAB PO SCH (05:58)
[2021-11-27] MEDS: FUROSEMIDE 40 MG/4 ML INJ IV SCH (05:59)
[2021-11-27] MEDS: methylPREDNISolone Sod Succinate 125 MG/2 ML INJ IV SCH (05:59)
[2021-11-27 06:13] LABS: Hematocrit 34.2 % (30.3-42.9); Hemoglobin 10.6 gm/dl (10.1-14.3)
[2021-11-27 06:25] LABS: INR 4.49 (0.87-1.13)
[2021-11-27] MEDS: IPRATROPIUM/ALBUTEROL SULFATE 3 ML AMPUL.NEB IH SCH ×2 (08:57→14:28)
[2021-11-27 09:03] VITALS: BP 164/60
[2021-11-27] MEDS ORDERED: methylPREDNISolone Sod Succinate 125 MG/2 ML INJ IV SCH (10:00)
[2021-11-27] MEDS: NICOTINE 21 MG/24 HR PATCH TD SCH (10:20)
[2021-11-27] MEDS: SPIRONOLACTONE 25 MG TAB PO SCH (10:21)
[2021-11-27] MEDS: GABAPENTIN 300 MG CAP PO SCH ×2 (10:21)
[2021-11-27] MEDS: LISINOPRIL 10 MG TAB PO SCH (10:21)
--- NOTE | 2021-11-27 12:04 | Discharge Summary ---
Providers - Providers Date of Admission: 11/22/21 21:14 Date of discharge: 11/27/21 Attending physician: MELLISSA BETTENCOURT 11/23/21 17:58 Consult to Cardiology [CONS] Routine Consulting Provider: SHADY ELLISON Reason For Exam: HFpEF/Valvulopathy (follows w Panda) Primary care physician: RENATO SOSA Hospitalization Condition: Fair Pertinent studies: Chest x-ray: Diffuse bilateral pulmonary opacities have increased, cardiomegaly. 2D echocardiogram, EF 30 to 35% Hospital course: 56-year-old female patient with significant past medical history of congestive heart failure COPD mechanical valve replacement of mitral and aortic valves on Coumadin noncompliant admitted with acute exacerbation of chronic CHF and subtherapeutic INR cardiology evaluated, medications optimized, started on heparin drip and Coumadin with daily monitoring of INR to therapeutic goal between 2.5 and 3.5. Cardiology was consulted, she was placed on IV diuretics, her INR was monitored and dose adjusted by the the pharmacist. heparin drip was discontinued, her INR then became supratherapeutic on the level of 4.4. Coumadin and heparin drip was both on hold. Discussed with celebrity manager and recommended to continue to hold Coumadin until her INR comes below 3.5. She will follow-up with her INR at cardiology office. Today she she is clinically stable, will be discharged with outpatient follow-up. Discharge planning management was thoroughly discussed with the patient and she verbalized understanding. Disposition: HOME HEALTH CARE SERVICE Final Discharge Diagnosis (Prints w/discharge instructions): --Acute exacerbation of systolic CHF (congestive heart failure), EF 30 to 35%. --Acute COPD exacerbation. --Acute hypoxic respiratory failure; present on admission. --h/o mechanical mitral valve replacement/aortic valve replacement. target INR 2.5-3.5. --Subtherapeutic INR; now supra therapeutic. --Medical noncompliance;. --Ongoing tobacco use;. --History of bacterial endocarditis 2014; treated. --Hypertension, chronic. --Chronic atrial fibrillation/atypical flutter. -h/o hypertrophic cardiomyopathy s/p myomectomy. -- Hyperlipidemia Time spent for discharge: 34 minutes Core Measure Documentation - Palliative Care Palliative Care/ Comfort Measures: Not Applicable - Core Measures Any of the following diagnoses?: none Exam - Physical Exam Narrative exam: General appearance: Present: no acute distress, obese -[place] female - EENT Eyes: Present: PERRL, EOM intact - Neck Neck: Present: supple, normal ROM - Respiratory Respiratory effort: normal Respiratory: bilateral: diminished, negative: rales, rhonchi, wheezing - Cardiovascular Rhythm: regular Heart Sounds: Present: S1 & S2 - Extremities Extremities: no ischemia, No edema - Abdominal General gastrointestinal: soft, non-tender, non-distended, normal bowel sounds - Integumentary Integumentary: Present: clear, warm - Psychiatric Psychiatric: appropriate mood/affect, cooperative - Neurologic Neurologic: moves all extremities - Constitutional Vitals: Temp Pulse Resp BP Pulse Ox 99.0 F 70 18 154/60 94 11/27/21 08:00 11/27/21 10:21 11/27/21 08:00 11/27/21 10:21 11/27/21 08:00 Plan Activity: advance as tolerated Weight Bearing Status: Weight Bear as Tolerated Diet: low fat, low salt Additional Instructions: Continue to hold Coumadin until your INR less than 3.5. Please visit cardiology office tomorrow to check your INR Follow up with: RENATO SOSA MD [Primary Care Provider] - 3-5 Days LALA WATSON MD [Staff Physician] - 7 Days Forms: Warfarin Discharge Instruction Prescriptions: AtorvaSTATin [Lipitor] 40 mg PO QHS #30 tablet Spironolactone [Aldactone] 25 mg PO QDAY #30 tablet Docusate Sodium [Colace CAP] 100 mg PO BID PRN #60 capsule PRN Reason: Constipation Digoxin [Lanoxin] 0.25 mg PO DAILY@1700 #30 tablet Metoprolol [Lopressor TAB] 50 mg PO Q8H #90 tablet lisinopriL [Zestril TAB] 10 mg PO QDAY #30 tablet
--- NOTE | 2021-11-27 13:29 | Progress Note ---
Assessment and Plan - Patient Problems (1) Warfarin anticoagulation Current Visit: Yes Status: Acute Plan to address problem: The patient has a mechanical aortic valve, mechanical mitral valve, and chronic atrial fibrillation. She requires uninterrupted warfarin therapy with a target INR of 2.5-3.5. INR today is 4.4. 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 (2) Mechanical heart valve present Current Visit: Yes Status: Acute Plan to address problem: The patient has a mechanical aortic valve, mechanical mitral valve, and chronic atrial fibrillation. She requires uninterrupted warfarin therapy with a target INR of 2.5-3.5. (3) Dilated cardiomyopathy Current Visit: Yes Status: Acute Plan to address problem: Guideline directed medical therapy for cardiomyopathy and chronic left ventricular systolic dysfunction. Subjective Date of service: 11/27/21 Principal diagnosis: Nausea vomiting and diarrhea Interval history: Patient is comfortable, no new cardiac complaints. She is adamant about going home today. INR is supratherapeutic at 4.4. Objective Vital Signs Temp Pulse Resp BP Pulse Ox 11/27/21 12:43 68 11/27/21 10:21 70 164/60 11/27/21 10:00 99 11/27/21 08:00 99.0 F 68 18 164/60 94 11/27/21 06:27 17 11/27/21 05:58 70 167/67 11/27/21 05:57 17 11/27/21 04:00 70 11/27/21 03:34 99.1 F 70 18 167/67 100 11/26/21 23:37 97.8 F 71 16 147/69 100 11/26/21 23:10 17 11/26/21 22:40 17 11/26/21 22:00 95 11/26/21 20:00 78 11/26/21 19:20 98.2 F 71 16 149/71 92 11/26/21 18:40 70 11/26/21 18:12 70 11/26/21 16:26 99.7 F H 70 16 139/66 96 - Physical Examination General: No Apparent Distress HEENT: Positive: PERRL Neck: Positive: neck supple Cardiac: Positive: Reg Rate and Rhythm, Systolic Murmur Lungs: Positive: Decreased Breath Sounds Neuro: Positive: Grossly Intact Abdomen: Positive: Soft Skin: Positive: Clear Extremities: Absent: edema - Labs and Meds Coagulation 11/27/21 Range/Units 05:43 PT 49.0 H (12.2-14.9) Sec. INR 4.49 H (0.87-1.13) CBC 11/27/21 Range/Units 05:43 Hgb 10.6 (10.1-14.3) gm/dl Hct 34.2 (30.3-42.9) % Plt Count 267 (140-440) K/mm3 - Imaging and Cardiology EKG: report reviewed Pacemaker: ventricular pacing w/capt
--- NOTE | 2021-11-27 13:30 | Event Note ---
Date: 11/27/21 INR today is 4.4. 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
[2021-11-28] MEDS ORDERED: methylPREDNISolone Sod Succinate 40 MG/1 ML INJ IV SCH (10:00)
== END 2021-11-27 14:05 | disposition home or self-care (01) | DRG 189 ==
LOC: ED 04:19 → 4A 21:14
PROVIDERS: ADMIT Internal Medicine; ATTEND Internal Medicine
PROC: 4A033R1 Measurement of Arterial Saturation, Peripheral, Percutaneous Approach (ICD-10-PCS; principal; 2021-11-23)
DX: J96.01 Acute respiratory failure with hypoxia (principal); I11.0 Hypertensive heart disease with heart failure; I50.43 Acute on chronic combined systolic (congestive) and diastolic (congestive) heart failure; J44.1 Chronic obstructive pulmonary disease with (acute) exacerbation; I48.20 Chronic atrial fibrillation, unspecified; K21.9 Gastro-esophageal reflux disease without esophagitis; I42.0 Dilated cardiomyopathy; K50.90 Crohn's disease, unspecified, without complications; I48.4 Atypical atrial flutter; G62.9 Polyneuropathy, unspecified; E78.2 Mixed hyperlipidemia; I25.10 Atherosclerotic heart disease of native coronary artery without angina pectoris; Z79.899 Other long term (current) drug therapy; Z79.01 Long term (current) use of anticoagulants; Z71.6 Tobacco abuse counseling; Z90.710 Acquired absence of both cervix and uterus; Z95.810 Presence of automatic (implantable) cardiac defibrillator; Z91.19 Patient's noncompliance with other medical treatment and regimen; Z86.73 Personal history of transient ischemic attack (TIA), and cerebral infarction without residual deficits
CPT/HCPCS: 36415; 71045; 80048; 80053; 80061; 81001; 82150; 82247; 82248; 82550; 82553; 83690; 83880; 84484; 85007; 85014; 85018; 85025; 85049; 85520; 85610; 85730; 93005; 93306; 94640; G0378; J3490; C8929; J0456; J0696; J1100; J1644; J1940; J2270; J2405; J2930

== ENCOUNTER 2022-01-30 00:13 | Emergency (ER) | payer MEDICAID ==
[2022-01-30] MEDS ORDERED: SODIUM CHLORIDE 0.9% 1000 ML 1,000 ML IV ONE (00:30)
[2022-01-30] MEDS ORDERED: MORPHINE 4 MG/1 ML INJ IV ONE (00:30)
[2022-01-30] MEDS ORDERED: ONDANSETRON 4 MG/2 ML INJ IV ONE (00:30)
--- NOTE | 2022-01-30 00:35 | Emergency Department Report ---
ED Abdominal Pain HPI - General Stated Complaint: RT L QUADRANT PAIN Time Seen by Provider: 01/30/22 00:30 Source: patient - History of Present Illness Initial Comments: Patient is 56 years old female with history of Crohn's disease, COPD and CHF. Patient presented to the ER complaining of right lower quadrant pain since yesterday. Patient described her pain as crampy associated with nausea but no vomiting. She stated that she had mild diarrhea. No blood. Patient denied any fever or chills. MD Complaint: abdominal pain -: days(s) (2) Radiation: RLQ Severity scale (0 -10): 6 Associated Symptoms: nausea, diarrhea. denies: vomiting - Related Data Home Medications Medication Instructions Recorded Confirmed Last Taken Furosemide [Lasix] 40 mg PO QDAY 11/26/21 11/26/21 Unknown Oxycodone HCl [roxiCODONE] 30 mg PO Q8H PRN 11/26/21 11/26/21 Unknown Warfarin Sodium 1 tab PO DAILY 11/26/21 11/26/21 Unknown Previous Rx's Medication Instructions Recorded Last Taken Type Gabapentin 300 mg PO TID #90 cap 06/18/19 Unknown Rx AtorvaSTATin [Lipitor] 40 mg PO QHS #30 tablet 11/27/21 Unknown Rx Digoxin [Lanoxin] 0.25 mg PO DAILY@1700 #30 tablet 11/27/21 Unknown Rx Docusate Sodium [Colace CAP] 100 mg PO BID PRN #60 capsule 11/27/21 Unknown Rx Metoprolol [Lopressor TAB] 50 mg PO Q8H #90 tablet 11/27/21 Unknown Rx Spironolactone [Aldactone] 25 mg PO QDAY #30 tablet 11/27/21 Unknown Rx lisinopriL [Zestril TAB] 10 mg PO QDAY #30 tablet 11/27/21 Unknown Rx Allergies Allergy/AdvReac Type Severity Reaction Status Date / Time No Known Allergies Allergy Verified 11/26/21 08:08 ED Review of Systems ROS: Stated complaint: RT L QUADRANT PAIN Other details as noted in HPI Comment: All other systems reviewed and negative Constitutional: denies: chills, fever Respiratory: denies: cough, shortness of breath, SOB with exertion, SOB at rest Cardiovascular: denies: chest pain, palpitations Gastrointestinal: abdominal pain, nausea, diarrhea. denies: vomiting, constipation, hematemesis, melena, hematochezia Neurological: denies: headache, weakness, numbness, paresthesias, confusion ED Past Medical Hx - Past Medical History Hx Hypertension: Yes Hx CVA: No Hx Heart Attack/AMI: No Hx Congestive Heart Failure: Yes Hx Diabetes: No Hx Deep Vein Thrombosis: Yes Hx Pulmonary Embolism: No Hx GERD: Yes (hiatal hernia) Hx Liver Disease: No Hx Renal Disease: No Hx Sickle Cell Disease: No Hx Arthritis: No Hx Headaches / Migraines: No Hx Seizures: No Hx Psychiatric Treatment: No Hx Asthma: No Hx COPD: Yes Hx Tuberculosis: No Hx Dementia: No Hx HIV: No Additional medical history: Crohn's disease. DILATED Cardiomyopathy. Life vest in place removed 2017-. hx DVT in LUE. HPLD. chronic pain - Surgical History Hx Coronary Stent: Yes Hx Open Heart Surgery: No (mitral valve replacement (from old chart, pt. unsure)) Hx Pacemaker: Yes Hx Internal Defibrillator: Yes Hx Cholecystectomy: No Hx Appendectomy: No Hx Breast Surgery: No Additional Surgical History: bowel resection- December 2007, (3) Fissurectomies,. Hysterectomy. defibrillator placed 11/2015 ear surgery - Social History Smoking Status: Current Every Day Smoker - Medications Home Medications: Home Medications Medication Instructions Recorded Confirmed Last Taken Type Gabapentin 300 mg PO TID #90 cap 06/18/19 11/22/21 Unknown Rx Furosemide [Lasix] 40 mg PO QDAY 11/26/21 11/26/21 Unknown History Oxycodone HCl [roxiCODONE] 30 mg PO Q8H PRN 11/26/21 11/26/21 Unknown History Warfarin Sodium 1 tab PO DAILY 11/26/21 11/26/21 Unknown History AtorvaSTATin [Lipitor] 40 mg PO QHS #30 tablet 11/27/21 Unknown Rx Digoxin [Lanoxin] 0.25 mg PO DAILY@1700 #30 tablet 11/27/21 Unknown Rx Docusate Sodium [Colace CAP] 100 mg PO BID PRN #60 capsule 11/27/21 Unknown Rx Metoprolol [Lopressor TAB] 50 mg PO Q8H #90 tablet 11/27/21 Unknown Rx Spironolactone [Aldactone] 25 mg PO QDAY #30 tablet 11/27/21 Unknown Rx lisinopriL [Zestril TAB] 10 mg PO QDAY #30 tablet 11/27/21 Unknown Rx ED Physical Exam - General General appearance: alert, in no apparent distress - Head Head exam: Present: atraumatic, normocephalic, normal inspection - Eye Eye exam: Present: normal appearance - ENT ENT exam: Present: normal exam, normal orophraynx, mucous membranes moist - Neck Neck exam: Present: normal inspection, full ROM. Absent: tenderness, meningismus - Respiratory Respiratory exam: Present: normal lung sounds bilaterally - Cardiovascular Cardiovascular Exam: Present: regular rate, normal rhythm, normal heart sounds - GI/Abdominal GI/Abdominal exam: Present: soft, normal bowel sounds. Absent: distended, tenderness, guarding, rebound, rigid, organomegaly, mass, bruit, pulsatile mass, hernia - Extremities Exam Extremities exam: Present: normal inspection, full ROM, normal capillary refill. Absent: tenderness - Back Exam Back exam: Present: normal inspection, full ROM. Absent: CVA tenderness (R), CVA tenderness (L) - Neurological Exam Neurological exam: Present: alert, oriented X3, CN II-XII intact, reflexes normal - Psychiatric Psychiatric exam: Present: normal mood - Skin Skin exam: Present: warm, intact, normal color ED Course Vital Signs 01/30/22 01/30/22 00:27 02:32 Temperature 97.7 F Pulse Rate 67 78 Respiratory 18 18 Rate Blood Pressure 143/60 Blood Pressure 132/71 [Left] O2 Sat by Pulse 93 94 Oximetry ED Medical Decision Making - Lab Data Result diagrams: 01/30/22 01:01 01/30/22 01:01 - Radiology Data Radiology results: report reviewed - Medical Decision Making Patient is 56 years old female with history of Crohn's disease, COPD and CHF. Patient presented to the ER complaining of right lower quadrant pain since yesterday. Patient described her pain as crampy associated with nausea but no vomiting. She stated that she had mild diarrhea. No blood. Patient denied any fever or chills. Patient received morphine and fentanyl for pain. Labs reviewed and is unrema rkable except for slightly low potassium of 3. Patient received k-dur [address] abdomen and pelvis showed right 10th through 12th ribs nondisplaced fracture and also hematoma to the rectus muscles. No extravasation. Patient stated that he does not remember falling. Patient given prescription for tramadol and Zofran and advised to follow-up with her primary care physician in the next 2 to 3 days and to return to the ER if she develop any new symptoms. Critical care attestation.: If time is entered above; I have spent that time in minutes in the direct care of this critically ill patient, excluding procedure time. ED Disposition Clinical Impression: Acute abdominal pain, Abdominal wall hematoma, Right rib fracture Disposition: HOME / SELF CARE / HOMELESS Is pt being admited?: No Condition: Stable Instructions: Abdominal Pain (ED), Abdominal Pain, Adult, [id number], Rib Fracture, [id number] Referrals: PRIMARY CARE, [Primary Care Provider] - 3-5 Days
[2022-01-30 01:49] LABS: INR 1.05 (0.87-1.13); Partial Thromboplastin Time 21.5 Sec. (24.2-36.6)
[2022-01-30 01:52] LABS: Albumin 3.6 g/dL (3.9-5); Bilirubin,Direct 0.5 mg/dL (0-0.2); Calcium 9.5 mg/dL (8.4-10.2)
[2022-01-30 02:23] LABS: Hematocrit 39.7 % (30.3-42.9); Hemoglobin 12.5 gm/dl (10.1-14.3); Mean Corpuscular HGB Conc 31 % (30-34); Mean Corpuscular Volume 81 fl (79-97); Red Blood Count 4.93 M/mm3 (3.65-5.03); Red Cell Distribution Width 19.2 % (13.2-15.2)
[2022-01-30] MEDS ORDERED: fentaNYL 100 MCG/2 ML INJ ONE (02:26)
[2022-01-30] MEDS ORDERED: fentaNYL 100 MCG/2 ML INJ IV ONE (02:30)
--- NOTE | 2022-01-30 03:45 | Cat Scan Report ---
CT ABDOMEN AND PELVIS WITH CONTRAST INDICATION / CLINICAL INFORMATION: Pt complains of abdominal pain. TECHNIQUE: Axial CT images were obtained through the abdomen and pelvis after 100 cc Omnipaque [address] scans at this location are performed using CT dose reduction for ALARA by means of automated exposure control. COMPARISON: CT abdomen and pelvis 05/30/2020 FINDINGS: LOWER CHEST: Moderate cardiomegaly. Pacemaker leads and sternal wires stable. Pleural thickening post erior right hemithorax. Areas of low attenuation suggesting scarring or atelectasis. LIVER: No focal lesion. No acute findings. Reflux of contrast within the hepatic veins and dilated he patic veins suggest chronic elevation of right heart pressures and diminished cardiac output. GALLBLADDER / BILE DUCTS: Cholecystectomy. Biliary ducts grossly unremarkable. SPLEEN: No significant abnormality. PANCREAS: Lipomatous atrophy. ADRENALS: No significant abnormality. KIDNEYS/URETERS: No stones or hydronephrosis. No solid renal lesion. STOMACH / DUODENUM / SMALL BOWEL: Postoperative changes of the stomach appears stable. No small bowel obstruction. Mesentery unremarkable. COLON: No significant abnormality. APPENDIX: No significant abnormality. PERITONEUM: No free air or free fluid are present within the abdomen or pelvis. LYMPH NODES: No significant adenopathy. AORTA / ARTERIES: Mild atherosclerotic calcification without acute abnormality. IVC / VEINS: No significant abnormality. URINARY BLADDER: No significant abnormality. REPRODUCTIVE ORGANS: No significant abnormality. ADDITIONAL ABDOMINAL/PELVIC FINDINGS: Expansile appearance of the right rectus muscle measuring 5.6 x 10.5 cm, image #91; series #2 is most suggestive of hematoma. Diffuse body wall edema present. SKELETAL SYSTEM: Acute minimally displaced posterior right 10th through 12th rib fractures are presen t. Fusion of T11-12 demonstrated. No additional deformities of right transverse processes of upper matteo mbar vertebral bodies compatible with prior fracture demonstrated. IMPRESSION: 1. Posterior right 10th through 12th rib fractures are minimally displaced with acute appearance. 2. Expansile appearance of the right rectus muscle is compatible with hematoma as detailed. No obviou s active extravasation of intravenous contrast in the delayed phase. 3. Other findings as detailed. Signer Name: Castro Reardon II, MD Signed: 01/30/2022 3:41 AM Workstation Name: [id number]
[2022-01-30] MEDS ORDERED: POTASSIUM CHLORIDE ER 20 MEQ TAB PO ONE (03:57)
[2022-01-30 04:58] VITALS: BP 145/80
[2022-01-30 05:07] LABS: Anisocytosis 3+; Basophils % (Manual) 0 % (0.0-1.8); Eosinophils % (Manual) 0 % (0.0-4.3); Myelocytes # (Manual) 0.1 K/mm3; Poikilocytosis 1+; Total Cells Counted 100
[2022-01-30 05:08] LABS: Hypochromasia 1+; Large Platelets Few; Platelet Estimate Consistent w Auto
[2022-01-30 05:19] LABS: Platelet Count 289 K/mm3 (140-440)
== END 2022-01-30 05:07 | disposition home or self-care (01) ==
LOC: ED 00:13
DX: S22.31XA Fracture of one rib, right side, initial encounter for closed fracture (principal); S30.1XXA Contusion of abdominal wall, initial encounter; F17.200 Nicotine dependence, unspecified, uncomplicated; I10 Essential (primary) hypertension; R10.9 Unspecified abdominal pain; X58.XXXA Exposure to other specified factors, initial encounter; Y93.89 Activity, other specified; Y92.89 Other specified places as the place of occurrence of the external cause; Y99.8 Other external cause status
CPT/HCPCS: 36415; 74177; 80048; 80076; 83690; 85007; 85025; 85610; 85730; 96361; 96374; 96375; 99284; J2270; J2405; J3010; J7030; Q9967

== ENCOUNTER 2022-02-01 21:07 | Inpatient (IN) | payer MEDICAID ==
[2022-02-01 22:33] LABS: Alanine Aminotransferase 6 units/L (7-56); Albumin 3.5 g/dL (3.9-5); BUN/Creatinine Ratio 14; Blood Urea Nitrogen 15 mg/dL (7-17); Calcium 9.6 mg/dL (8.4-10.2); Hemolysis Index 0
[2022-02-01 22:38] LABS: Basophils % (Auto) 0.6 % (0.0-1.8); Eosinophils # (Auto) 0.1 K/mm3 (0.0-0.4); Hematocrit 37.6 % (30.3-42.9); Hemoglobin 11.7 gm/dl (10.1-14.3); Lymphocytes # (Auto) 0.9 K/mm3 (1.2-5.4); Mean Corpuscular HGB Conc 31 % (30-34); Mean Corpuscular Volume 81 fl (79-97); Monocytes # (Auto) 0.5 K/mm3 (0.0-0.8); Monocytes % (Auto) 7.4 % (0.0-7.3); Platelet Count 358 K/mm3 (140-440); Red Blood Count 4.67 M/mm3 (3.65-5.03)
[2022-02-02] MEDS ORDERED: POTASSIUM CHLORIDE ER 20 MEQ TAB PO ONE (07:02)
--- NOTE | 2022-02-02 07:04 | Emergency Department Report ---
ED General Adult HPI - General Chief complaint: Altered Mental Status Stated complaint: what? PUI?: No Time Seen by Provider: 02/02/22 07:00 Source: patient, EMS ( EMS documentation not available at time of chart dictatio n ), RN notes reviewed, old records reviewed Mode of arrival: Stretcher Limitations: Altered Mental Status, Physical Limitation - History of Present Illness Initial comments: The patient was evaluated in the emergency department for symptoms described in the history of present illness. He/she was evaluated in the context of the global COVID-19 pandemic, which necessitated consideration that the patient mi ght be at risk for infection with the virus that causes COVID-19. Institutional protocols and algorithms that pertain to the evaluation of patients at risk for COVID-19 are in a state of rapid change based on information released by regulatory bodies including the CDC and federal and state organizations. These policies and algorithms were followed during the patient's care in the emergency department. Please note that these policies, procedures and recommendations changed on a rapid basis. This patient is a 56-year-old female. Her past medical history includes congestive heart failure, COPD, mechanical valve replacement mitral and aortic valves, supposed to be on Coumadin, noncompliant with anticoagulation, recently seen in this department with a complaint of abdominal pain. She was found to have a subtherapeutic INR, right-sided rib fractures, and a rectus sheath hematoma. She was discharged. CAT scan was performed on January 30. Patient read presents to the emergency room. In the emergency room the patient is confused. She tells me that she walked here. She does not know why she is here. She thinks she is having dysuria. She does complain of abdominal pain. She is not accompanied by friends or family at this time for collateral information or additional information. Patient is confused and disorganized, and has difficulty describing the qualitative nature of her symptoms, exacerbating factors relieving factors or aggravating factors. No additional history is available at this time - Related Data Home Medications Medication Instructions Recorded Confirmed Last Taken Furosemide [Lasix] 40 mg PO QDAY 11/26/21 11/26/21 Unknown Oxycodone HCl [roxiCODONE] 30 mg PO Q8H PRN 11/26/21 11/26/21 Unknown Warfarin Sodium 1 tab PO DAILY 11/26/21 11/26/21 Unknown Previous Rx's Medication Instructions Recorded Last Taken Type Gabapentin 300 mg PO TID #90 cap 06/18/19 Unknown Rx AtorvaSTATin [Lipitor] 40 mg PO QHS #30 tablet 11/27/21 Unknown Rx Digoxin [Lanoxin] 0.25 mg PO DAILY@1700 #30 tablet 11/27/21 Unknown Rx Docusate Sodium [Colace CAP] 100 mg PO BID PRN #60 capsule 11/27/21 Unknown Rx Metoprolol [Lopressor TAB] 50 mg PO Q8H #90 tablet 11/27/21 Unknown Rx Spironolactone [Aldactone] 25 mg PO QDAY #30 tablet 11/27/21 Unknown Rx lisinopriL [Zestril TAB] 10 mg PO QDAY #30 tablet 11/27/21 Unknown Rx Ondansetron [Zofran Odt] 4 mg PO Q8HR PRN #14 tab.rapdis 01/30/22 Unknown Rx oxyCODONE /ACETAMINOPHEN [Percocet 1 tab PO Q6HR PRN #14 tablet 01/30/22 Unknown Rx 5/325] Allergies Allergy/AdvReac Type Severity Reaction Status Date / Time No Known Allergies Allergy Verified 11/26/21 08:08 ED Review of Systems ROS: Stated complaint: ABD PAIN/DIARRHEA Other details as noted in HPI Comment: Unobtainable due to pts medical conditions Gastrointestinal: abdominal pain Genitourinary: dysuria Neurological: weakness, confusion ED Past Medical Hx - Past Medical History Previous Medical History?: Yes Hx Hypertension: Yes Hx CVA: No Hx Heart Attack/AMI: No Hx Congestive Heart Failure: Yes Hx Diabetes: No Hx Deep Vein Thrombosis: Yes Hx Pulmonary Embolism: No Hx GERD: Yes (hiatal hernia) Hx Liver Disease: No Hx Renal Disease: No Hx Sickle Cell Disease: No Hx Arthritis: No Hx Headaches / Migraines: No Hx Seizures: No Hx Psychiatric Treatment: No Hx Asthma: No Hx COPD: Yes Hx Tuberculosis: No Hx Dementia: No Hx HIV: No Additional medical history: Crohn's disease. DILATED Cardiomyopathy. Life vest in place removed 2017-. hx DVT in LUE. HPLD. chronic pain - Surgical History Past Surgical History?: Yes Hx Coronary Stent: Yes Hx Open Heart Surgery: (mitral valve replacement (from old chart, pt. unsure)) Hx Pacemaker: Yes Hx Internal Defibrillator: Yes Hx Cholecystectomy: No Hx Appendectomy: No Hx Breast Surgery: No Additional Surgical History: bowel resection- December 2007, (3) Fissurectomies,. Hysterectomy. defibrillator placed 11/2015 ear surgery - Social History Smoking Status: Unknown if ever smoked Substance Use Type: None - Medications Home Medications: Home Medications Medication Instructions Recorded Confirmed Last Taken Type Gabapentin 300 mg PO TID #90 cap 06/18/19 11/22/21 Unknown Rx Furosemide [Lasix] 40 mg PO QDAY 11/26/21 11/26/21 Unknown History Oxycodone HCl [roxiCODONE] 30 mg PO Q8H PRN 11/26/21 11/26/21 Unknown History Warfarin Sodium 1 tab PO DAILY 11/26/21 11/26/21 Unknown History AtorvaSTATin [Lipitor] 40 mg PO QHS #30 tablet 11/27/21 Unknown Rx Digoxin [Lanoxin] 0.25 mg PO DAILY@1700 #30 tablet 11/27/21 Unknown Rx Docusate Sodium [Colace CAP] 100 mg PO BID PRN #60 capsule 11/27/21 Unknown Rx Metoprolol [Lopressor TAB] 50 mg PO Q8H #90 tablet 11/27/21 Unknown Rx Spironolactone [Aldactone] 25 mg PO QDAY #30 tablet 11/27/21 Unknown Rx lisinopriL [Zestril TAB] 10 mg PO QDAY #30 tablet 11/27/21 Unknown Rx Ondansetron [Zofran Odt] 4 mg PO Q8HR PRN #14 tab.rapdis 01/30/22 Unknown Rx oxyCODONE /ACETAMINOPHEN [Percocet 1 tab PO Q6HR PRN #14 tablet 01/30/22 Unknown Rx 5/325] ED Physical Exam - General Limitations: Altered Mental Status, Physical Limitation General appearance: anxious, obese - Head Head exam: Present: atraumatic, normocephalic - Eye Eye exam: Present: normal appearance, EOMI - ENT ENT exam: Present: normal exam, normal orophraynx, mucous membranes moist, normal external ear exam - Neck Neck exam: Present: normal inspection, full ROM. Absent: tenderness, meningismus - Respiratory Respiratory exam: Present: decreased breath sounds, other (There is right-sided rib tenderness). Absent: respiratory distress, rhonchi, stridor - Cardiovascular Cardiovascular Exam: Present: regular rate, normal rhythm, irregular rhythm, JVD. Absent: tachycardia - GI/Abdominal GI/Abdominal exam: Present: soft, tenderness. Absent: distended, guarding, rebound, rigid, pulsatile mass - Extremities Exam Extremities exam: Present: full ROM, pedal edema, other (2+ pulses noted in the bilateral upper and lower extremities. There is no palpable cord. negative Homans sign. Muscular compartments are soft. The pelvis is stable.). Absent: normal inspection (Chronic venous stasis changes noted. There is a wound noted to the distal anterior right lower extremity), calf tenderness - Back Exam Back exam: Present: normal inspection. Absent: tenderness, CVA tenderness (R), CVA tenderness (L), paraspinal tenderness, vertebral tenderness - Neurological Exam Neurological exam: Present: altered, other (There is no facial droop. The tongue is midline. EOMI. 5/5 strength in 4 extremities.) - Psychiatric Psychiatric exam: Present: anxious - Skin Skin exam: Present: warm ED Course Vital Signs 02/01/22 02/02/22 02/02/22 21:22 08:04 08:05 Temperature 98 F Pulse Rate 82 71 Respiratory 18 Rate Blood Pressure 150/98 Blood Pressure 156/96 [Left] O2 Sat by Pulse 100 87 96 Oximetry O2 Sat by Pulse Oximetry [ Digit-Finger] 02/02/22 02/02/22 02/02/22 08:46 09:15 09:21 Temperature Pulse Rate 70 71 57 L Respiratory 20 Rate Blood Pressure 134/66 Blood Pressure 163/83 [Left] O2 Sat by Pulse 98 100 100 Oximetry O2 Sat by Pulse Oximetry [ Digit-Finger] 02/02/22 02/02/22 02/02/22 09:31 09:41 09:45 Temperature Pulse Rate 72 70 Respiratory 12 21 Rate Blood Pressure 134/66 Blood Pressure 134/66 [Left] O2 Sat by Pulse 100 100 Oximetry O2 Sat by Pulse Oximetry [ Digit-Finger] 02/02/22 02/02/22 02/02/22 09:49 09:57 10:01 Temperature Pulse Rate 74 Respiratory 19 Rate Blood Pressure 104/57 Blood Pressure 107/62 [Left] O2 Sat by Pulse 100 Oximetry O2 Sat by Pulse 87 Oximetry [ Digit-Finger] 02/02/22 02/02/22 02/02/22 10:15 10:31 10:45 Temperature Pulse Rate 71 72 74 Respiratory 21 21 20 Rate Blood Pressure 120/61 110/66 109/68 Blood Pressure [Left] O2 Sat by Pulse 99 100 100 Oximetry O2 Sat by Pulse Oximetry [ Digit-Finger] 02/02/22 02/02/22 02/02/22 11:01 11:11 11:22 Temperature Pulse Rate 70 Respiratory 20 16 18 Rate Blood Pressure 127/59 125/64 125/64 Blood Pressure [Left] O2 Sat by Pulse 100 Oximetry O2 Sat by Pulse Oximetry [ Digit-Finger] 02/02/22 11:30 Temperature Pulse Rate Respiratory Rate Blood Pressure 117/62 Blood Pressure [Left] O2 Sat by Pulse Oximetry O2 Sat by Pulse Oximetry [ Digit-Finger] - Reevaluation(s) Reevaluation #1: 02/02/22 07:31 Differential diagnosis, including but not limited to: Intracranial les ion/hemorrhage, pneumonia, UTI, CHF, subtherapeutic INR, fractured ribs, abdominal wall hematoma Assessment and plan: 56-year-old female who is confused, recently seen in this department with a complaint of abdominal pain, found to have a rectus/abdominal wall hematoma, and rib fractures of uncertain etiology. Given her history of mitral and aortic valves which are both mechanical, she will likely require initiation of anticoagulation. She will require admission to the ER for monitor initiation of anticoagulation. Given her rectus sheath/abdominal wall hematoma, I contacted general surgery on-call, Dr. Cintron. I discussed the patient's history, physical, laboratory studies and recent imaging studies. I have requested general surgical consultation to follow along as the patient gets admitted, for reinitiation of systemic anticoagulation, and monitoring. Dr. Cintron will follow. We will obtain x-ray of the chest, noncontrast CT scan of the brain, and additional appropriate laboratory studies. Once these studies have resulted, we anticipate admitting this patient to the medical service for encephalopathy, and the aforementioned. The patient is confused, but will follow commands, and has endorsed that she is agreeable to this plan of care. The patient is also found to have acute hypoxic respiratory failure, requiring supplemental oxygen, she also has JVD. Lasix is ordered. 02/02/22 08:03 02/02/22 09:12 Patient agitated prior to acquisition of CT scan. She was given as needed haloperidol and Ativan, as she is acutely encephalopathic, and does not exhibit decision-making capacity. I do not appreciate an intracranial hemorrhage. After coming back from CT scan, patient then pulled out her IV. A An emergent CT scan of the brain is required to exclude intracranial hemorrhage. the patient also now has labored breathing. 02/02/22 09:[address] scan of the brain is negative for acute findings. Patient remained agitated, pulling off leads and IV. It is my opinion that repeat sedation is too dangerous for this patient and she requires definitive airway management. The patient was therefore intubated by myself with 1 attempt, with no obvious complications. Please see my procedure note. I have replaced the patient's right sided external jugular IV, and placed a second left-sided external jugular IV. Please see procedure note. Post intubation chest x-ray shows appropriate tube placement. Contacted hospital physician, Dr. Mena, and critical care physician, Dr. Goldberg. I discussed the patient's history, physical, laboratory studies and i maging studies and clinical impression. Dr. Goldberg agrees with placement to the intensive care unit and will follow in consultation. He requests propofol sedation. Dr. Mena, hospital physician, will admit the patient to the medical service. Patient's INR is found to be subtherapeutic and she will be started on unfractionated heparin. I suspect that her elevated troponin is a type II troponin leak. Patient currently sedated on ventilator, blood pressure appropriate, awaiting placement into the intensive care unit. - EJ/Peripheral Line Neck L Time Out Performed: Yes Indications: nurses unable to establis Skin Cleansed in Sterile Fashion: Yes Size: 20 Dressing Placed: Tegaderm Patient Tolerated Procedure: well Neck R Time Out Performed: Yes Indications: multiple IV sites needed Skin Cleansed in Sterile Fashion: Yes Size: 18 Dressing Placed: Tegaderm Patient Tolerated Procedure: well Other Time Out Performed: Yes Indications: nurses unable to establis, multiple IV sites needed Skin Cleansed in Sterile Fashion: No Size: 18 Dressing Placed: Tegaderm Patient Tolerated Procedure: well Additional Comments: Patient pulled out her original left-sided external jugular IV. Left-sided EJ is cleansed in typical aseptic fashion, and I have replaced her IV with an add itional/new 18-gauge IV. The patient tolerated this procedure well, and without difficulty - Intubation Time Out Performed: No (Emergency situation) Sedative: Ketamine Mg Given: 200 Paralytic: Succinylcholine Mg Given: 100 Laryngoscope: fiberoptic video scope Size: 4 Assist Device Used: Bougie ET Tube Size: 7.5 Tube Secured Location: lips Tube Placement Confirmation: visualized tube passing t, equal breath sounds bilat, no breath sounds over epi, confirmation by capnometr Patient Tolerated Procedure: well Intubation Complications: none Additional Comments: Patient placed on nasal cannula at 15 L/min. Patient receives oqa-avoyy-fqee ventilation. Patient induced with 200 mg of ketamine. Patient paralyzed with 100 mg of rocuronium. Video laryngoscopy is performed, and a gum elastic bougie catheter is inserted into the trachea under direct visualization. A 7.5 endotracheal tube is subsequently inserted over the bougie into the trachea. The towboat pilot balloon is inflated. End-tidal capnography color change is appropriate, post intubation breath sounds are appreciated bilaterally. Post intubation x-ray is reviewed and appreciated. - Pulse Oximetry Interpretation Digit-Finger Initial Pulse Oximetry Readin O2 Sat by Pulse Oximetry: 87 Actions Taken: other (3l ) Additional Comments: 3l nc ED Medical Decision Making - Lab Data Result diagrams: 02/01/22 21:59 02/01/22 21:59 Vital Signs 02/01/22 21:22 Temperature 98 F Pulse Rate 82 Respiratory 18 Rate Blood Pressure 150/98 O2 Sat by Pulse 100 Oximetry Lab Results 02/01/22 02/01/22 Range/Units 21:59 21:59 WBC 6.6 (4.5-11.0) K/mm3 RBC 4.67 (3.65-5.03) M/mm3 Hgb 11.7 (10.1-14.3) gm/dl Hct 37.6 (30.3-42.9) % MCV 81 (79-97) fl MCH 25 L (28-32) pg MCHC 31 (30-34) % RDW 19.0 H (13.2-15.2) % Plt Count 358 (140-440) K/mm3 Lymph % (Auto) 14.0 (13.4-35.0) % Towns % (Auto) 7.4 H (0.0-7.3) % Eos % (Auto) 2.0 (0.0-4.3) % Baso % (Auto) 0.6 (0.0-1.8) % Lymph # (Auto) 0.9 L (1.2-5.4) K/mm3 Towns # (Auto) 0.5 (0.0-0.8) K/mm3 Eos # (Auto) 0.1 (0.0-0.4) K/mm3 Baso # (Auto) 0.0 (0.0-0.1) K/mm3 Seg Neutrophils % 76.0 H (40.0-70.0) % Seg Neutrophils # 5.0 (1.8-7.7) K/mm3 Sodium 139 (137-145) mmol/L Potassium 3.0 L (3.6-5.0) mmol/L Chloride 98.4 (98-107) mmol/L Carbon Dioxide 28 (22-30) mmol/L Anion Gap 16 mmol/L BUN 15 (7-17) mg/dL Creatinine 1.1 (0.6-1.2) mg/dL Estimated GFR > 60 ml/min BUN/Creatinine Ratio 14 % Glucose 77 (65-100) mg/dL Calcium 9.6 (8.4-10.2) mg/dL Total Bilirubin 2.30 H (0.1-1.2) mg/dL AST 18 (5-40) units/L ALT 6 L (7-56) units/L Alkaline Phosphatase 97 (35-129) units/L Total Protein 8.3 H (6.3-8.2) g/dL Albumin 3.5 L (3.9-5) g/dL Albumin/Globulin Ratio 0.7 % - EKG Data -: EKG Interpreted by Tn - EKG Data 02/02/22 07:26 The EKG is interpreted 7: 1 5 there is significant motion artifact. Ventricular paced complexes are noted. Rightward axis deviation is noted. QTC 5 7 5 ms. There is no endorsement of chest pain. This is not a STEMI. This appears to be unchanged when compared to prior EKG from October 2021 - Radiology Data Radiology results: pending, report reviewed, image reviewed CT HEAD WITHOUT CONTRAST INDICATION / CLINICAL INFORMATION: acute ams. TECHNIQUE: All CT scans at this location are performed using CT dose reduction for ALARA by means of automated exposure control. Evaluation limited secondary to patient motion. COMPARISON: 05/30/2020 FINDINGS: HEMORRHAGE: None. EXTRA- AXIAL SPACES: Mildly prominent likely related to cortical atrophy. VENTRICULAR SYSTEM: Normal in size and morphology for the patient's age. CEREBRAL PARENCHYMA: No acute territorial infarct. Encephalomalacic changes of the right medial occipital lobe. There is also decreased density within the left periventricular region suggesting chronic microvascular ischemic change.. MIDLINE SHIFT / HERNIATION: None. CEREBELLUM / BRAINSTEM: No significant abnormality. ORBITS: Normal as visualized SOFT TISSUES: No significant abnormal ity. SKULL: No significant abnormality. PARANASAL SINUSES / MASTOID AIR CELLS: Normal as visualized ADDITIONAL FINDINGS: None. IMPRESSION: 1. No acute intracranial abnormality given limitations of patient motion. Signer Name: Chris Stewart DO Signed: 02/02/2022 8:06 AM Workstation Name: [employer] ABDOMEN 1 VIEW 02/02/2022 INDICATION / CLINICAL INFORMATION: og tube placement. COMPARISON: None available. FINDINGS: TUBES / LINES: Enteric tube terminates within the stomach with side-port within the stomach as well. BOWEL GAS PATTERN: No significant abnormality. FREE AIR / EXTRALUMINAL GAS: None seen. ADDITIONAL FINDINGS: No significant additional findings. IMPRESSION: 1. Enteric tube terminates within the stomach but the side-port within the stomach as well. Signer Name: Chris Stewart DO Signed: 02/02/2022 8:36 AM Workstation Name: [employer] CHEST 1 VIEW 02/02/2022 8:31 AM INDICATION / CLINICAL INFORMATION: ETT placement. COMPARISON: 02/02/2022 FINDINGS: SUPPORT DEVICES: Endotracheal tube terminates approximately 2.2 cm from the kamila. There is an enteric tube which terminates distal to the field of view and below the diaphragm. Left chest wall cardiac support device. HEART / MEDIASTINUM: Stable. LUNGS / PLEURA: Pulmonary vascular indistinctness. No pneumothorax. ADDITIONAL FINDINGS: No significant additional findings. IMPRESSION: 1. Endotracheal tube in expected position. 2. Pulmonary edema Signer Name: Chris Stewart DO Signed: 02/02/2022 8:35 AM Workstation Name: [employer] CHEST 1 VIEW 02/02/2022 7:21 AM INDICATION / CLINICAL INFORMATION: dyspnea. COMPARISON: 11/22/2021 FINDINGS: SUPPORT DEVICES: Unchanged. HEART / MEDIASTINUM: Stable. LUNGS / PLEURA: There is pulmonary vascular indistinctness with perihilar streaky opacities. There are trace bilateral pleural effusions. No pneumothorax. ADDITIONAL FINDINGS: No significant additional findings. IMPRESSION: 1. Moderate pulmonary edema. Signer Name: Chris Stewart DO Signed: 02/02/2022 7:00 AM Workstation Name: [id number] CT ABDOMEN AND PELVIS WITH CONTRAST INDICATION / CLINICAL INFORMATION: Pt complains of abdominal pain. TECHNIQUE: Axial CT images were obtained through the abdomen and pelvis after 100 cc Omnipaque [address] scans at this location are performed using CT dose reduction for ALARA by means of automated exposure control. COMPARISON: CT abdomen and pelvis 05/30/2020 FINDINGS: LOWER CHEST: Moderate cardiomegaly. Pacemaker leads and sternal wires stable. Pleural thickening posterior right hemithorax. Areas of low attenuation suggesting scarring or atelectasis. LIVER: No focal lesion. No acute findings. Reflux of contrast within the hepatic veins and dilated hepatic veins suggest chronic elevation of right heart pressures and diminished cardiac output. GALLBLADDER / BILE DUCTS: Cholecystectomy. Biliary ducts grossly unremarkable. SPLEEN: No significant abnormality. PANCREAS: Lipomatous atrophy. ADRENALS: No significant abnormality. KIDNEYS/URETERS: No stones or hydronephrosis. No solid renal lesion. STOMACH / DUODENUM / SMALL BOWEL: Postoperative changes of the stomach appears stable. No small bowel obstruction. Mesentery unremarkable. COLON: No significant abnormality. APPENDIX: No significant abnormality. PERITONEUM: No free air or free fluid are present within the abdomen or pelvis. LYMPH NODES: No significant adenopathy. AORTA / ARTERIES: Mild atherosclerotic calcification without acute abnormality. IVC / VEINS: No significant abnormality. URINARY BLADDER: No significant abnormality. REPRODUCTIVE ORGANS: No significant abnormality. ADDITIONAL ABDOMINAL/PELVIC FINDINGS: Expansile appearance of the right rectus muscle measuring 5.6 x 10.5 cm, image #91; series #2 is most suggestive of hematoma. Diffuse body wall edema present. SKELETAL SYSTEM: Acute minimally displaced posterior right 10th through 12th rib fractures are present. Fusion of T11-12 demonstrated. No additional deformities of right transverse processes of upper lumbar vertebral bodies compatible with prior fracture demonstrated. IMPRESSION: 1. Posterior right 10th through 12th rib fractures are minimally displaced with acute appearance. 2. Expansile appearance of the right rectus muscle is compatible with hematoma as detailed. No obvious active extravasation of intravenous contrast in the delayed phase. 3. Other findings as detailed. Signer Name: Castro Reardon II, MD Signed: 01/30/2022 2:41 AM Workstation Name: [id number] Critical Care Time: Yes Critical care time in (mins) excluding proc time.: 45 Critical care attestation.: If time is entered above; I have spent that time in minutes in the direct care of this critically ill patient, excluding procedure time. ED Disposition Clinical Impression: Edema extremities, H/O mitral valve replacement with mechanical valve, Chronic atrial fibrillation, Right rib fracture, Rectus sheath hematoma, Hypokalemia, Encephalopathy, Acute respiratory failure with hypoxia, Subtherapeutic anticoagulation, Abdominal wall hematoma Disposition: 09 ADMITTED INPATIENT Is pt being admited?: Yes Does the pt Need Aspirin: No Condition: Critical
[2022-02-02] MEDS ORDERED: LORazepam 2 MG/ML VIAL IM PRN (07:28)
[2022-02-02] MEDS ORDERED: HALOPERIDOL LACTATE 5 MG/1 ML INJ IM PRN (07:28)
[2022-02-02] MEDS ORDERED: FUROSEMIDE 40 MG/4 ML INJ IV ONE (08:03)
--- NOTE | 2022-02-02 08:05 | XRay Report ---
CHEST 1 VIEW 02/02/2022 7:21 AM INDICATION / CLINICAL INFORMATION: dyspnea. COMPARISON: 11/22/2021 FINDINGS: SUPPORT DEVICES: Unchanged. HEART / MEDIASTINUM: Stable. LUNGS / PLEURA: There is pulmonary vascular indistinctness with perihilar streaky opacities. There ar e trace bilateral pleural effusions. No pneumothorax. ADDITIONAL FINDINGS: No significant additional findings. IMPRESSION: 1. Moderate pulmonary edema. Signer Name: Chris Stewart DO Signed: 02/02/2022 8:00 AM Workstation Name: [id number]
[2022-02-02] MEDS ORDERED: SUCCINYLCHOLINE CHLORIDE 200 MG/10 ML INJ MDV ONE (08:58)
[2022-02-02] MEDS ORDERED: KETAMINE 500 MG/5 ML VIAL MDV ONE (08:59)
[2022-02-02] MEDS ORDERED: SUCCINYLCHOLINE CHLORIDE 200 MG/10 ML INJ MDV IV ONE (09:09)
[2022-02-02] MEDS ORDERED: LORazepam 2 MG/ML VIAL IV PRN (09:09)
[2022-02-02] MEDS ORDERED: fentaNYL 100 MCG/2 ML INJ IV PRN ×2 (09:09→09:57)
[2022-02-02] MEDS ORDERED: MINERAL OIL/PETROLATUM, WHITE OPHTH OINT 3.5 GM OU PRN (09:09)
[2022-02-02] MEDS ORDERED: LIP THERAPY VASELINE TP PRN (09:09)
[2022-02-02] MEDS ORDERED: KETAMINE 500 MG/5 ML VIAL MDV IV ONE ×2 (09:09→09:22)
--- NOTE | 2022-02-02 09:11 | Cat Scan Report ---
CT HEAD WITHOUT CONTRAST INDICATION / CLINICAL INFORMATION: acute ams. TECHNIQUE: All CT scans at this location are performed using CT dose reduction for ALARA by means of automated exposure control. Evaluation limited secondary to patient motion. COMPARISON: 05/30/2020 FINDINGS: HEMORRHAGE: None. EXTRA-AXIAL SPACES: Mildly prominent likely related to cortical atrophy. VENTRICULAR SYSTEM: Normal in size and morphology for the patient's age. CEREBRAL PARENCHYMA: No acute territorial infarct. Encephalomalacic changes of the right medial occip ital lobe. There is also decreased density within the left periventricular region suggesting chronic microvascular ischemic change.. MIDLINE SHIFT / HERNIATION: None. CEREBELLUM / BRAINSTEM: No significant abnormality. ORBITS: Normal as visualized SOFT TISSUES: No significant abnormality. SKULL: No significant abnormality. PARANASAL SINUSES / MASTOID AIR CELLS: Normal as visualized ADDITIONAL FINDINGS: None. IMPRESSION: 1. No acute intracranial abnormality given limitations of patient motion. Signer Name: Chris Stewart DO Signed: 02/02/2022 9:06 AM Workstation Name: [id number]
[2022-02-02 09:19] LABS: Partial Thromboplastin Time 33.2 Sec. (24.2-36.6)
[2022-02-02] MEDS ORDERED: propofoL 200 MG/20 ML VIAL IV ONE (09:25)
[2022-02-02 09:31] LABS: INR 1.17 (0.87-1.13)
[2022-02-02] MEDS ORDERED: HEPARIN 10,000 UNITS/10 ML VIAL IV PRN (09:40)
[2022-02-02] MEDS ORDERED: HEPARIN 10,000 UNITS/10 ML VIAL IV ONE (09:40)
--- NOTE | 2022-02-02 09:40 | XRay Report ---
CHEST 1 VIEW 02/02/2022 8:31 AM INDICATION / CLINICAL INFORMATION: ETT placement. COMPARISON: 02/02/2022 FINDINGS: SUPPORT DEVICES: Endotracheal tube terminates approximately 2.2 cm from the kamila. There is an enter ic tube which terminates distal to the field of view and below the diaphragm. Left chest wall cardiac support device. HEART / MEDIASTINUM: Stable. LUNGS / PLEURA: Pulmonary vascular indistinctness. No pneumothorax. ADDITIONAL FINDINGS: No significant additional findings. IMPRESSION: 1. Endotracheal tube in expected position. 2. Pulmonary edema Signer Name: Chris Stewart DO Signed: 02/02/2022 9:35 AM Workstation Name: [id number]
--- NOTE | 2022-02-02 09:41 | XRay Report ---
ABDOMEN 1 VIEW 02/02/2022 INDICATION / CLINICAL INFORMATION: og tube placement. COMPARISON: None available. FINDINGS: TUBES / LINES: Enteric tube terminates within the stomach with side-port within the stomach as well. BOWEL GAS PATTERN: No significant abnormality. FREE AIR / EXTRALUMINAL GAS: None seen. ADDITIONAL FINDINGS: No significant additional findings. IMPRESSION: 1. Enteric tube terminates within the stomach but the side-port within the stomach as well. Signer Name: Chris Stewart DO Signed: 02/02/2022 9:36 AM Workstation Name: [id number]
[2022-02-02 09:42] LABS: Chol/HDL Ratio 3.07 %
[2022-02-02] MEDS ORDERED: MORPHINE 4 MG/1 ML INJ IV PRN (09:46)
[2022-02-02] MEDS ORDERED: MORPHINE 2 MG/1 ML INJ IV PRN (09:46)
[2022-02-02] MEDS ORDERED: fentaNYL DRIP Premix 2,000 MCG/100 ML BAG IV SCH (10:00)
[2022-02-02] MEDS ORDERED: LORazepam 100 MG in SODIUM CHLORIDE 0.9% 50 ML, EMPTY BAG 0 ML IV SCH (10:00)
[2022-02-02] MEDS: fentaNYL DRIP Premix 2,000 MCG/100 ML BAG IV SCH ×2 (10:12→17:50)
--- NOTE | 2022-02-02 10:45 | XRay Report ---
ABDOMEN 1 VIEW 02/02/2022 INDICATION / CLINICAL INFORMATION: enteric tube replacement. COMPARISON: 02/02/2022 FINDINGS: TUBES / LINES: Enteric tube terminates within the stomach with the side-port within the stomach as we ll BOWEL GAS PATTERN: No significant abnormality. FREE AIR / EXTRALUMINAL GAS: None seen. ADDITIONAL FINDINGS: No significant additional findings. IMPRESSION: 1. Enteric tube terminates within stomach with side-port within the stomach as well Signer Name: Chris Stewart DO Signed: 02/02/2022 10:41 AM Workstation Name: [id number]
[2022-02-02 10:56] LABS: ABG Base Excess 0.6 mmol/L (-2.0-3.0); ABG HCO3 26.5 mmol/L (20.0-26.0); ABG Methemoglobin 0.5 % (0.0-1.5); ABG Oxygen Saturation 98.8 % (95.0-99.0); ABG PCO2 48.1 mm Hg; ABG PH 7.359 pH Units (7.350-7.450); ABG PO2 153.8 mm Hg (80.0-90.0)
[2022-02-02] MEDS ORDERED: LIPASE 10,500/PROTEASE 25,000/AMYLASE 43,750 (UNITS) DR CAP FEEDTUBE PRN (11:15)
[2022-02-02] MEDS ORDERED: SIMPLE SYRUP 15 ML FEEDTUBE PRN ×2 (11:15)
[2022-02-02] MEDS ORDERED: SODIUM BICARBONATE 325 MG TAB FEEDTUBE PRN (11:15)
--- NOTE | 2022-02-02 11:16 | History and Physical Report ---
History of Present Illness Date of examination: 02/02/22 Date of admission: 02/02/22 09:46 Chief complaint: shortness of breath History of present illness: 56-year-old female history of COPD, mechanical mitral and aortic valves with noncompliance with anticoagulation, hyperlipidemia and heart failure who presented to the emergency department with multiple complaints. She was seen in the emergency department on 01/30 for abdominal pain. At that time imaging revea led right-sided rib fractures and a rectal sheath hematoma she was discharged. Patient became confused and agitated in the emergency department. She was subsequently intubated for airway protection. Patient was intubated and sedated at time of my examination. Labs, imaging and previous admission from October 2021 was reviewed. Past History Past Medical History: COPD, heart failure Social history: smoking Medications and Allergies Allergies Allergy/AdvReac Type Severity Reaction Status Date / Time No Known Allergies Allergy Verified 11/26/21 08:08 Home Medications Medication Instructions Recorded Confirmed Last Taken Type Gabapentin 300 mg PO TID #90 cap 06/18/19 11/22/21 Unknown Rx Furosemide [Lasix] 40 mg PO QDAY 11/26/21 11/26/21 Unknown History Oxycodone HCl [roxiCODONE] 30 mg PO Q8H PRN 11/26/21 11/26/21 Unknown History Warfarin Sodium 1 tab PO DAILY 11/26/21 11/26/21 Unknown History AtorvaSTATin [Lipitor] 40 mg PO QHS #30 tablet 11/27/21 Unknown Rx Digoxin [Lanoxin] 0.25 mg PO DAILY@1700 #30 tablet 11/27/21 Unknown Rx Docusate Sodium [Colace CAP] 100 mg PO BID PRN #60 capsule 11/27/21 Unknown Rx Metoprolol [Lopressor TAB] 50 mg PO Q8H #90 tablet 11/27/21 Unknown Rx Spironolactone [Aldactone] 25 mg PO QDAY #30 tablet 11/27/21 Unknown Rx lisinopriL [Zestril TAB] 10 mg PO QDAY #30 tablet 11/27/21 Unknown Rx Ondansetron [Zofran Odt] 4 mg PO Q8HR PRN #14 tab.rapdis 01/30/22 Unknown Rx oxyCODONE /ACETAMINOPHEN [Percocet 1 tab PO Q6HR PRN #14 tablet 01/30/22 Unknown Rx 5/325] Active Meds: Active Medications Acetaminophen (Acetaminophen 325 Mg Tab) 650 mg PO Q6H PRN PRN Reason: Pain MILD(1-3)/Fever >100.5/VACA Famotidine (Famotidine 20 Mg/2 Ml Inj) 20 mg IV BID HERACLIO Fentanyl (Fentanyl 100 Mcg/2 Ml Inj) 50 mcg IV Q10MIN PRN PRN Reason: ANALGESIA Heparin Sodium (Porcine) (Heparin 10,000 Units/10 Ml Vial) 4,500 unit 40 unit/kg (4500 unit) IV Q6H PRN PRN Reason: Anti-Xa Assay < 0.1 units/ml Hydrophilic Ointment (Lip Therapy Vaseline) 1 applic TP Q2HR PRN PRN Reason: Dry Lips Propofol (Diprivan 10 Mg/Ml) 1,000 mg in 100 mls @ 3.402 mls/hr IV TITR HERACLIO; Protocol Last Titration: 02/02/22 11:08 Dose: 20 mcg/kg/min, 13.608 mls/hr Potassium Chloride (Kcl 10meq/100ml) 10 meq in 100 mls @ 100 mls/hr IV Q1H HERACLIO Stop: 02/02/22 13:59 Heparin Sodium/Sodium Chloride (Heparin/ 0.45% Nacl-25,000 Unit/500 Ml) 25,000 unit in 500 mls @ 30 mls/hr IV TITR HERACLIO; Protocol Fentanyl Citrate (Fentanyl Drip Premix) 2,000 mcg in 100 mls @ 5.67 mls/hr IV TITR HERACLIO; Protocol Last Titration: 02/02/22 11:09 Dose: 2 mcg/kg/hr, 11.34 mls/hr Morphine Sulfate (Morphine 2 Mg/1 Ml Inj) 2 mg IV Q4H PRN PRN Reason: Pain, Moderate (4-6) Morphine Sulfate (Morphine 4 Mg/1 Ml Inj) 4 mg IV Q4H PRN PRN Reason: Pain , Severe (7-10) Multi-Ingred Cream/Lotion/Oil/Oint (Mineral Oil/Petrolatum, White Ophth Oint 3.5 Gm) 1 applic OU Q4HR PRN PRN Reason: Dry Eye(s) Senna/Docusate Sodium (Sennosides/Docusate Sodium 8.6/50 Mg Tab) 1 tab FEEDTUBE BID HERACLIO Sodium Chloride (Sodium Chloride 0.9% 10 Ml Flush Syringe) 10 ml IV BID HERACLIO Sodium Chloride (Sodium Chloride 0.9% 10 Ml Flush Syringe) 10 ml IV PRN PRN PRN Reason: LINE FLUSH Review of Systems ROS unobtainable: due to endotracheal tube Exam - Physical Exam Narrative exam: GENERAL: Well-developed well-nourished. Ventillated and sedated. HEENT: ETT in place. NECK: LIJ IV. CHEST/LUNGS: Coarse breath sound bilaterally. HEART/CARDIOVASCULAR: RRR. +systolic murmur. No rubs or gallops appreciated. ABDOMEN: +BS. NT/ND. SKIN: Chronic venous stasis changes at BLE. RLE ulceration. NEURO: Unable to assess. MUSCULOSKELETAL: No joint effusion. EXTREMITIES: No clubbing or edema. PSYCH: Unable to assess. - Constitutional Vitals: Temp Pulse Resp BP Pulse Ox 98 F 70 20 127/59 100 02/01/22 21:22 02/02/22 11:01 02/02/22 11:01 02/02/22 11:01 02/02/22 11:01 HEART Score - HEART Score Troponin: Troponin T 0.077 ng/mL (0.00-0.029) H 02/02/22 07:50 Results - Labs CBC & Chem 7: 02/03/22 03:57 02/03/22 03:57 Labs: Laboratory Last Values WBC 6.6 K/mm3 (4.5-11.0) 02/01/22 21:59 RBC 4.67 M/mm3 (3.65-5.03) 02/01/22 21:59 Hgb 11.7 gm/dl (10.1-14.3) 02/01/22 21:59 Hct 37.6 % (30.3-42.9) 02/01/22 21:59 MCV 81 fl (79-97) 02/01/22 21:59 MCH 25 pg (28-32) L 02/01/22 21:59 MCHC 31 % (30-34) 02/01/22 21:59 RDW 19.0 % (13.2-15.2) H 02/01/22 21:59 Plt Count 358 K/mm3 (140-440) 02/01/22 21:59 Lymph % (Auto) 14.0 % (13.4-35.0) 02/01/22 21:59 [place] % (Auto) 7.4 % (0.0-7.3) H 02/01/22 21:59 Eos % (Auto) 2.0 % (0.0-4.3) 02/01/22 21:59 Baso % (Auto) 0.6 % (0.0-1.8) 02/01/22 21:59 Lymph # (Auto) 0.9 K/mm3 (1.2-5.4) L 02/01/22 21:59 [place] # (Auto) 0.5 K/mm3 (0.0-0.8) 02/01/22 21:59 Eos # (Auto) 0.1 K/mm3 (0.0-0.4) 02/01/22 21:59 Baso # (Auto) 0.0 K/mm3 (0.0-0.1) 02/01/22 21:59 Seg Neutrophils % 76.0 % (40.0-70.0) H 02/01/22 21:59 Seg Neutrophils # 5.0 K/mm3 (1.8-7.7) 02/01/22 21:59 PT 16.3 Sec. (12.2-14.9) H 02/02/22 07:50 INR 1.17 (0.87-1.13) H 02/02/22 07:50 APTT 33.2 Sec. (24.2-36.6) 02/02/22 07:50 ABG pH 7.359 pH Units (7.350-7.450) 02/02/22 10:30 ABG pCO2 48.1 mm Hg 02/02/22 10:30 ABG pO2 153.8 mm Hg (80.0-90.0) H 02/02/22 10:30 ABG HCO3 26.5 mmol/L (20.0-26.0) H 02/02/22 10:30 ABG O2 Saturation 98.8 % (95.0-99.0) 02/02/22 10:30 ABG O2 Content 14.8 (0.0-44) 02/02/22 10:30 ABG Base Excess 0.6 mmol/L (-2.0-3.0) 02/02/22 10:30 ABG Hemoglobin 10.9 gm/dl (12.0-16.0) L 02/02/22 10:30 ABG Carboxyhemoglobin 3.4 % (0.0-5.0) 02/02/22 10:30 ABG Methemoglobin 0.5 % (0.0-1.5) 02/02/22 10:30 Oxyhemoglobin 95.0 % (95.0-99.0) 02/02/22 10:30 FiO2 100 % 02/02/22 10:30 Sodium 139 mmol/L (137-145) 02/01/22 21:59 Potassium 3.0 mmol/L (3.6-5.0) L 02/01/22 21:59 Chloride 98.4 mmol/L (98-107) 02/01/22 21:59 Carbon Dioxide 28 mmol/L (22-30) 02/01/22 21:59 Anion Gap 16 mmol/L 02/01/22 21:59 BUN 15 mg/dL (7-17) 02/01/22 21:59 Creatinine 1.1 mg/dL (0.6-1.2) 02/01/22 21:59 Estimated GFR > 60 ml/min 02/01/22 21:59 BUN/Creatinine Ratio 14 % 02/01/22 21:59 Glucose 77 mg/dL (65-100) 02/01/22 21:59 Lactic Acid 1.80 mmol/L (0.7-2.0) 02/02/22 07:50 Calcium 9.6 mg/dL (8.4-10.2) 02/01/22 21:59 Magnesium 2.10 mg/dL (1.7-2.3) 02/01/22 21:59 Total Bilirubin 2.30 mg/dL (0.1-1.2) H 02/01/22 21:59 AST 18 units/L (5-40) 02/01/22 21:59 ALT 6 units/L (7-56) L 02/01/22 21:59 Alkaline Phosphatase 97 units/L (35-129) 02/01/22 21:59 Total Creatine Kinase 59 units/L (30-135) 02/02/22 07:50 Troponin T 0.077 ng/mL (0.00-0.029) H 02/02/22 07:50 NT-Pro-B Natriuret Pep 3678 pg/mL (0-900) H 02/02/22 07:50 Total Protein 8.3 g/dL (6.3-8.2) H 02/01/22 21:59 Albumin 3.5 g/dL (3.9-5) L 02/01/22 21:59 Albumin/Globulin Ratio 0.7 % 02/01/22 21:59 Triglycerides 75 mg/dL (2-149) 02/02/22 07:50 Cholesterol 117 mg/dL (50-199) 02/02/22 07:50 LDL Cholesterol Direct 62 mg/dL (50-130) 02/02/22 07:50 HDL Cholesterol 38 mg/dL (40-59) L 02/02/22 07:50 Cholesterol/HDL Ratio 3.07 % 02/02/22 07:50 TSH 1.320 mlU/mL (0.270-4.200) 02/02/22 07:50 Salicylates < 0.3 mg/dL (2.8-20.0) L 02/02/22 07:50 Acetaminophen 5.0 ug/mL (10.0-30.0) L 02/02/22 08:07 Plasma/Serum Alcohol < 0.01 % (0-0.07) 02/02/22 07:50 Assessment and Plan Assessment and plan: #Acute on chronic heart failure with reduced ejection fraction #dilated cardiomyopathy -TTE 10/2021: LVEF 30-35% -NTproBNP 3678 -restarted aldactone, digoxin, metoprolol and lisinopril at home doses -will start lasix 40mg IV BID #Acute hypoxic respiratory failure #Pulmonary edema -Chest x-ray reviewed, suggestive of pulmonary edema -patient placed on supplemental O2 and intubated due to encephalopathy -likely secondary to CHF exacerbation -We will treat with diuresis as above #Acute metabolic encephalopathy -CT head negative for acute abnormality -UA unremarkable -intubated for airway protection #Rectus sheath hematoma #Rib fractures -seen on imaging on 01/31 ER visit -General surgery consulted, assistance appreciated #Elevated troponin -troponin 0.077, repeat ordered -EKG ordered -likely type II leak, if increasing troponin will consult Cardiology #Chronic atrial fibrillation #history of mechanical aortic and mitral valve #medication non-compliance -patient was prescribed warfarin in the past, likely non-compliant given multiple subtheraputic INRs (current INR 1.17) -continue heparin gtt for now -goal INR 2.5-3.5 #history COPD -not in acute exacerbation #Hyperlipidemia -continue statin at home dose #Hypokalemia -will replete and monitor The high probability of a clinically significant, sudden or life threatening deterioration of the [multi] system(s) required my full and direct attention, intervention and personal management. The aggregate critical care time was [60] minutes. This time is in addition to time spent performing reported procedures but includes the following: [x] Data Review and interpretation [x] Patient assessment and monitoring of vital signs [x] Documentation [x] Medication orders and management Advance Directives: No VTE prophylaxis?: Chemical Plan of care discussed with patient/family: No
[2022-02-02 11:49] LABS: Bacteria,Urine 1+ /HPF (Negative); Bilirubin,Urine NEG (Negative); Blood,Urine SM (Negative); Color,Urine Yellow (Yellow); Mucus,Urine FEW /HPF; Urobilinogen,Urine < 2.0 mg/dL (<2.0)
[2022-02-02] MEDS: FAMOTIDINE 20 MG/2 ML INJ IV SCH ×2 (12:15→22:01)
[2022-02-02] MEDS: HEPARIN/ 0.45% NACL DRIP 25,000 UNIT/500 ML BAG IV SCH (12:46)
[2022-02-02] MEDS: POTASSIUM CHLORIDE 10 MEQ 10 MEQ/100 ML BAG IV SCH ×4 (12:46→17:08)
[2022-02-02] MEDS: METOPROLOL TARTRATE 50 MG TAB PO SCH ×2 (12:54→20:08)
[2022-02-02] MEDS: SENNOSIDES/DOCUSATE SODIUM 8.6/50 MG TAB FEEDTUBE SCH ×2 (12:54→22:00)
[2022-02-02] MEDS: LISINOPRIL 10 MG TAB PO SCH (14:12)
[2022-02-02] MEDS: GABAPENTIN 300 MG CAP PO SCH ×2 (14:13→20:08)
[2022-02-02] MEDS: SPIRONOLACTONE 25 MG TAB PO SCH (14:13)
[2022-02-02] MEDS: DIGOXIN 0.25 MG TAB PO SCH (17:08)
--- NOTE | 2022-02-02 20:25 | Consultation ---
History of Present Illness Consult date: 02/02/22 - History of present illness History of present illness: 56 yo female with right 10th-12 rib fractures and right rectus hematoma. Has to be anticoagulated b/o prosthetic cardiac valves. I was asked to follow pt for the aforementioned reasons. Medications and Allergies Allergies Allergy/AdvReac Type Severity Reaction Status Date / Time No Known Allergies Allergy Verified 11/26/21 08:08 Home Medications Medication Instructions Recorded Confirmed Last Taken Type Gabapentin 300 mg PO TID #90 cap 06/18/19 11/22/21 Unknown Rx Furosemide [Lasix] 40 mg PO QDAY 11/26/21 11/26/21 Unknown History Oxycodone HCl [roxiCODONE] 30 mg PO Q8H PRN 11/26/21 11/26/21 Unknown History Warfarin Sodium 1 tab PO DAILY 11/26/21 11/26/21 Unknown History AtorvaSTATin [Lipitor] 40 mg PO QHS #30 tablet 11/27/21 Unknown Rx Digoxin [Lanoxin] 0.25 mg PO DAILY@1700 #30 tablet 11/27/21 Unknown Rx Docusate Sodium [Colace CAP] 100 mg PO BID PRN #60 capsule 11/27/21 Unknown Rx Metoprolol [Lopressor TAB] 50 mg PO Q8H #90 tablet 11/27/21 Unknown Rx Spironolactone [Aldactone] 25 mg PO QDAY #30 tablet 11/27/21 Unknown Rx lisinopriL [Zestril TAB] 10 mg PO QDAY #30 tablet 11/27/21 Unknown Rx Ondansetron [Zofran Odt] 4 mg PO Q8HR PRN #14 tab.rapdis 01/30/22 Unknown Rx oxyCODONE /ACETAMINOPHEN [Percocet 1 tab PO Q6HR PRN #14 tablet 01/30/22 Unknown Rx 5/325] Active Meds: Active Medications Acetaminophen (Acetaminophen 325 Mg Tab) 650 mg PO Q6H PRN PRN Reason: Pain MILD(1-3)/Fever >100.5/VACA Lipase/Protease/Amylase (Lipase 10,500/Protease 25,000/Amylase 43,750 (Units) Dr Colon) 1 each FEEDTUBE PRN PRN PRN Reason: For Clogged Feeding Tube Atorvastatin Calcium (Atorvastatin 40 Mg Tab) 40 mg PO QHS HERACLIO Digoxin (Digoxin 0.25 Mg Tab) 0.25 mg PO DAILY@1700 [facility] Last Admin: 02/02/22 17:08 Dose: 0.25 mg Famotidine (Famotidine 20 Mg/2 Ml Inj) 20 mg IV BID [facility] Last Admin: 02/02/22 12:15 Dose: Not Given Fentanyl (Fentanyl 100 Mcg/2 Ml Inj) 50 mcg IV Q10MIN PRN PRN Reason: ANALGESIA Gabapentin (Gabapentin 300 Mg Cap) 300 mg PO TID [facility] Last Admin: 02/02/22 20:08 Dose: 300 mg Heparin Sodium (Porcine) (Heparin 10,000 Units/10 Ml Vial) 4,500 unit 40 unit/kg (4500 unit) IV Q6H PRN PRN Reason: Anti-Xa Assay < 0.1 units/ml Hydrophilic Ointment (Lip Therapy Vaseline) 1 applic TP Q2HR PRN PRN Reason: Dry Lips Propofol (Diprivan 10 Mg/Ml) 1,000 mg in 100 mls @ 3.402 mls/hr IV TITR [facility]; Protocol Last Titration: 02/02/22 17:08 Dose: 15 mcg/kg/min, 10.206 mls/hr Heparin Sodium/Sodium Chloride (Heparin/ 0.45% Nacl-25,000 Unit/500 Ml) 25,000 unit in 500 mls @ 30 mls/hr IV TITR [facility]; Protocol Last Admin: 02/02/22 12:46 Dose: 1,500 units/hr, 30 mls/hr Fentanyl Citrate (Fentanyl Drip Premix) 2,000 mcg in 100 mls @ 5.67 mls/hr IV TITR [facility]; Protocol Last Admin: 02/02/22 17:50 Dose: 1 mcg/kg/hr, 5.67 mls/hr Lisinopril (Lisinopril 10 Mg Tab) 10 mg PO QDAY [facility] Last Admin: 02/02/22 14:12 Dose: 10 mg Metoprolol Tartrate (Metoprolol Tartrate 50 Mg Tab) 50 mg PO Q8H [facility] Last Admin: 02/02/22 20:08 Dose: Not Given Morphine Sulfate (Morphine 2 Mg/1 Ml Inj) 2 mg IV Q4H PRN PRN Reason: Pain, Moderate (4-6) Morphine Sulfate (Morphine 4 Mg/1 Ml Inj) 4 mg IV Q4H PRN PRN Reason: Pain , Severe (7-10) Multi-Ingred Cream/Lotion/Oil/Oint (Mineral Oil/Petrolatum, White Ophth Oint 3.5 Gm) 1 applic OU Q4HR PRN PRN Reason: Dry Eye(s) Senna/Docusate Sodium (Sennosides/Docusate Sodium 8.6/50 Mg Tab) 1 tab FEEDTUBE BID [facility] Last Admin: 02/02/22 12:54 Dose: Not Given Simple Syrup (Simple Syrup 15 Ml) 15 ml FEEDTUBE PRN PRN PRN Reason: Hypoglycemia Simple Syrup (Simple Syrup 15 Ml) 30 ml FEEDTUBE PRN PRN PRN Reason: Hypoglycemia Sodium Bicarbonate (Sodium Bicarbonate 325 Mg Tab) 325 mg FEEDTUBE PRN PRN PRN Reason: For Clogged Feeding Tube Sodium Chloride (Sodium Chloride 0.9% 10 Ml Flush Syringe) 10 ml IV BID [facility] Last Admin: 02/02/22 12:54 Dose: 10 ml Sodium Chloride (Sodium Chloride 0.9% 10 Ml Flush Syringe) 10 ml IV PRN PRN PRN Reason: LINE FLUSH Spironolactone (Spironolactone 25 Mg Tab) 25 mg PO QDAY [facility] Last Admin: 02/02/22 14:13 Dose: 25 mg Review of Systems ROS unobtainable: due to endotracheal tube Exam Vital Signs Temp Pulse Resp BP Pulse Ox 98 F 82 18 150/98 100 02/01/22 21:22 02/01/22 21:22 02/01/22 21:22 02/01/22 21:22 02/01/22 21:22 - General physical appearance Positive: well developed, well nourished, no distress - Eyes Positive: PERRL, normal occular movement - ENT Positive: normal pinna, normal nares, normal mucosa, no hearing loss, no congestion - Neck Positive: no masses, no bruits, trachea midline, no venous distension - Respiratory Positive: normal expansion, normal respiratory effort, clear to auscultation, other (Intubated. Sedated.) - Cardiovascular Rhythm: regular Heart Sounds: Present: S1 & S2. Absent: rub, click - Extremities Extremities: no ischemia, pulses symmetrical, No edema - Breasts Breasts: normal, no mass, no skin changes - Abdomen Abdomen: Present: soft, bowel sounds normal, other (Moderate sized right epigastric rectus hematoma palpated.). Absent: tender, distended Hernia: none - Genitourinary Male Genitourinary: normal Female Genitourinary: normal - Integumentary no rash, no growths, no abnormal pigmentation Results - Labs 02/01/22 21:59 02/01/22 21:59 Abnormal lab results 02/01/22 02/01/22 02/02/22 Range/Units 21:59 21:59 07:50 MCH 25 L (28-32) pg RDW 19.0 H (13.2-15.2) % [place] % (Auto) 7.4 H (0.0-7.3) % Lymph # (Auto) 0.9 L (1.2-5.4) K/mm3 Seg Neutrophils % 76.0 H (40.0-70.0) % PT 16.3 H (12.2-14.9) Sec. INR 1.17 H (0.87-1.13) Heparin Anti-Xa Level (0.3-0.7) U.I./ml ABG pO2 (80.0-90.0) mm Hg ABG HCO3 (20.0-26.0) mmol/L ABG Hemoglobin (12.0-16.0) gm/dl Potassium 3.0 L (3.6-5.0) mmol/L POC Glucose (70-105) mg/dL Total Bilirubin 2.30 H (0.1-1.2) mg/dL ALT 6 L (7-56) units/L Troponin T (0.00-0.029) ng/mL NT-Pro-B Natriuret Pep (0-900) pg/mL Total Protein 8.3 H (6.3-8.2) g/dL Albumin 3.5 L (3.9-5) g/dL HDL Cholesterol (40-59) mg/dL Salicylates (2.8-20.0) mg/dL Acetaminophen (10.0-30.0) ug/mL 02/02/22 02/02/22 02/02/22 Range/Units 07:50 07:50 08:07 MCH (28-32) pg RDW (13.2-15.2) % [place] % (Auto) (0.0-7.3) % Lymph # (Auto) (1.2-5.4) K/mm3 Seg Neutrophils % (40.0-70.0) % PT (12.2-14.9) Sec. INR (0.87-1.13) Heparin Anti-Xa Level (0.3-0.7) U.I./ml ABG pO2 (80.0-90.0) mm Hg ABG HCO3 (20.0-26.0) mmol/L ABG Hemoglobin (12.0-16.0) gm/dl Potassium (3.6-5.0) mmol/L POC Glucose (70-105) mg/dL Total Bilirubin (0.1-1.2) mg/dL ALT (7-56) units/L Troponin T 0.077 H (0.00-0.029) ng/mL NT-Pro-B Natriuret Pep 3678 H (0-900) pg/mL Total Protein (6.3-8.2) g/dL Albumin (3.9-5) g/dL HDL Cholesterol 38 L (40-59) mg/dL Salicylates < 0.3 L (2.8-20.0) mg/dL Acetaminophen 5.0 L (10.0-30.0) ug/mL 02/02/22 02/02/22 02/02/22 Range/Units 10:30 12:42 18:37 MCH (28-32) pg RDW (13.2-15.2) % [place] % (Auto) (0.0-7.3) % Lymph # (Auto) (1.2-5.4) K/mm3 Seg Neutrophils % (40.0-70.0) % PT (12.2-14.9) Sec. INR (0.87-1.13) Heparin Anti-Xa Level 0.10 L (0.3-0.7) U.I./ml ABG pO2 153.8 H (80.0-90.0) mm Hg ABG HCO3 26.5 H (20.0-26.0) mmol/L ABG Hemoglobin 10.9 L (12.0-16.0) gm/dl Potassium (3.6-5.0) mmol/L POC Glucose 69 L (70-105) mg/dL Total Bilirubin (0.1-1.2) mg/dL ALT (7-56) units/L Troponin T (0.00-0.029) ng/mL NT-Pro-B Natriuret Pep (0-900) pg/mL Total Protein (6.3-8.2) g/dL Albumin (3.9-5) g/dL HDL Cholesterol (40-59) mg/dL Salicylates (2.8-20.0) mg/dL Acetaminophen (10.0-30.0) ug/mL Diabetes panel 02/01/22 02/02/22 Range/Units 21:59 07:50 Sodium 139 (137-145) mmol/L Potassium 3.0 L (3.6-5.0) mmol/L Chloride 98.4 (98-107) mmol/L Carbon Dioxide 28 (22-30) mmol/L BUN 15 (7-17) mg/dL Creatinine 1.1 (0.6-1.2) mg/dL Glucose 77 (65-100) mg/dL Calcium 9.6 (8.4-10.2) mg/dL AST 18 (5-40) units/L ALT 6 L (7-56) units/L Alkaline Phosphatase 97 (35-129) units/L Total Protein 8.3 H (6.3-8.2) g/dL Albumin 3.5 L (3.9-5) g/dL Triglycerides 75 (2-149) mg/dL HDL Cholesterol 38 L (40-59) mg/dL Thyroid panel 02/02/22 Range/Units 07:50 TSH 1.320 (0.270-4.200) mlU/mL Calcium panel 02/01/22 Range/Units 21:59 Calcium 9.6 (8.4-10.2) mg/dL Albumin 3.5 L (3.9-5) g/dL Pituitary panel 02/01/22 02/02/22 Range/Units 21:59 07:50 Sodium 139 (137-145) mmol/L Potassium 3.0 L (3.6-5.0) mmol/L Chloride 98.4 (98-107) mmol/L Carbon Dioxide 28 (22-30) mmol/L BUN 15 (7-17) mg/dL Creatinine 1.1 (0.6-1.2) mg/dL Glucose 77 (65-100) mg/dL Calcium 9.6 (8.4-10.2) mg/dL TSH 1.320 (0.270-4.200) mlU/mL Adrenal panel 02/01/22 Range/Units 21:59 Sodium 139 (137-145) mmol/L Potassium 3.0 L (3.6-5.0) mmol/L Chloride 98.4 (98-107) mmol/L Carbon Dioxide 28 (22-30) mmol/L BUN 15 (7-17) mg/dL Creatinine 1.1 (0.6-1.2) mg/dL Glucose 77 (65-100) mg/dL Calcium 9.6 (8.4-10.2) mg/dL Total Bilirubin 2.30 H (0.1-1.2) mg/dL AST 18 (5-40) units/L ALT 6 L (7-56) units/L Alkaline Phosphatase 97 (35-129) units/L Total Protein 8.3 H (6.3-8.2) g/dL Albumin 3.5 L (3.9-5) g/dL - Imaging CT scan - abdomen: report reviewed CT scan - pelvis: report reviewed Assessment and Plan - Patient Problems (1) Rectus sheath hematoma Current Visit: Yes Status: Acute Plan to address problem: 1) I will follow pt with you re further potential complications of anticoagulation.
[2022-02-03] MEDS: METOPROLOL TARTRATE 50 MG TAB PO SCH ×3 (03:04→19:55)
--- NOTE | 2022-02-03 03:22 | XRay Report ---
CHEST 1 VIEW INDICATION / CLINICAL INFORMATION: follow up respiratory failure. COMPARISON: 02/02/2022 FINDINGS: SUPPORT DEVICES: Stable, satisfactory device positioning. HEART / MEDIASTINUM: Sternotomy and cardiomegaly, unchanged LUNGS / PLEURA: Stable bilateral pulmonary opacities. No pneumothorax. ADDITIONAL FINDINGS: No significant additional findings. IMPRESSION: 1. No significant change. Signer Name: Zane Mcclendon MD Signed: 02/03/2022 3:17 AM Workstation Name: [id number]
[2022-02-03 04:16] LABS: Basophils # (Auto) 0.1 K/mm3 (0.0-0.1); Basophils % (Auto) 0.8 % (0.0-1.8); Eosinophils # (Auto) 0.2 K/mm3 (0.0-0.4); Eosinophils % (Auto) 3.8 % (0.0-4.3); Hematocrit 37.1 % (30.3-42.9); Hemoglobin 11.8 gm/dl (10.1-14.3); Lymphocytes # (Auto) 0.9 K/mm3 (1.2-5.4); Lymphocytes % (Auto) 13.1 % (13.4-35.0); Mean Corpuscular HGB Conc 32 % (30-34); Mean Corpuscular Volume 80 fl (79-97); Monocytes # (Auto) 0.7 K/mm3 (0.0-0.8); Monocytes % (Auto) 10.6 % (0.0-7.3); Platelet Count 298 K/mm3 (140-440); Red Blood Count 4.62 M/mm3 (3.65-5.03); Red Cell Distribution Width 18.7 % (13.2-15.2)
[2022-02-03 04:45] LABS: BUN/Creatinine Ratio 14; Blood Urea Nitrogen 15 mg/dL (7-17); Calcium 8.7 mg/dL (8.4-10.2); Hemolysis Index 7
[2022-02-03 04:55] LABS: ABG Base Excess 2.3 mmol/L (-2.0-3.0); ABG HCO3 26.6 mmol/L (20.0-26.0); ABG Methemoglobin 0.4 % (0.0-1.5); ABG Oxygen Saturation 97.1 % (95.0-99.0); ABG PCO2 40.1 mm Hg; ABG PH 7.44 pH Units (7.350-7.450); ABG PO2 83.9 mm Hg (80.0-90.0)
[2022-02-03] MEDS: FUROSEMIDE 40 MG/4 ML INJ IV SCH ×2 (05:08→17:13)
[2022-02-03] MEDS ORDERED: POTASSIUM CHLORIDE 20 MEQ PACKET FEEDTUBE STA (05:11)
[2022-02-03] MEDS: fentaNYL DRIP Premix 2,000 MCG/100 ML BAG IV SCH ×3 (05:34→20:06)
[2022-02-03] MEDS: HEPARIN/ 0.45% NACL DRIP 25,000 UNIT/500 ML BAG IV SCH ×2 (05:35→22:43)
[2022-02-03] MEDS ORDERED: VANCOMYCIN 1,750 MG in SODIUM CHLORIDE 0.9% 500 ML 500 ML IV SCH (08:00)
[2022-02-03] MEDS ORDERED: VANCOMYCIN/NS 1 GM/250 ML 1 GM/250 ML BAG IV SCH (08:00)
[2022-02-03] MEDS: GABAPENTIN 300 MG CAP PO SCH ×3 (08:42→19:55)
[2022-02-03] MEDS: SENNOSIDES/DOCUSATE SODIUM 8.6/50 MG TAB FEEDTUBE SCH ×2 (10:00→21:10)
--- NOTE | 2022-02-03 10:27 | Progress Note ---
<SCOTT FUENTES - Last Filed: 02/04/22 08:15> Assessment and Plan Assessment and plan: This is a 56-year-old female with known past medical history of COPD, HTN, HLD, mechanical mitral and aortic valves replacement, CHF, nonischemic cardiomyopathy s/p AICD, and chronic atrial fibrillation, noncompliant with anticoagulation admitted for AMS and acute hypoxic respiratory failure requiring ventilatory Hospital Course to Date: 02/03: Stable on the vent, sedation initiated overnight due to increase agitation. Wean sedation as tolerated, plan for possible SAT/SBT tomorrow. Blood culture positive GPC in 1 out 4 bottles, empiric IV antibiotics- Vanco initiated overnight. Patient remains afebrile, WBCs wnr, BP bordeline this am probably secondary to sedation. Continue empiric IV Abx for now, repeat Blood cultures, and will also check a procal. Periods of hypoglycemia overnight, TF at goal this am, continue BG check and hypoglycemic protocol. Patient remains on IV lasix BID, monitor renal function and electrolytes, replete as needed. Assessment and Plan #Acute Hypoxic Respiratory Failure #Pulmonary edema #H/o COPD -Intubated in the ED on 02/02 fir airway protection -Chest x-ray reviewed, suggestive of pulmonary edema -likely secondary to CHF exacerbation -Vent setting: PRVC-40%,6,20,450 -AM ABG noted -CCM consulted, appreciate recommendations -Continue IV lasix BID and Nebs treatment as needed -VAP bundle addressed -Aspiration precaution HOB above 30 -Daily SBT and SAT trials as tolerated -Daily ABG and CXR -Continue SPO2 monitoring for SPO2 goal above 92% #Acute on chronic heart failure with reduced ejection fraction #Dilated nonischemic Cardiomyopathy s/p AICD #Chronic Atrial fibrillation #h/o mechanical aortic and mitral valves #Noncompliant with Anticoagulation -TTE 10/2021: LVEF 30-35% -NTproBNP 3678, elevated Troponin X2 most like type 2 -Patient is Vpacing on the monitor, HR 70 -restarted aldactone, digoxin, metoprolol and lisinopril at home doses -IV lasix BID -Continue blood pressure monitor per protocol -Maintain MAP above 65 -Cardiology consulted -Continue to trend cardiac enzymes -patient was prescribed warfarin in the past, likely non-compliant given multiple subtheraputic INRs (current INR 1.17) -continue heparin gtt for now -goal INR 2.5-3.5 #Acute Metabolic Encephalopathy -CT head negative for acute abnormality -UA unremarkable -Intubated and sedated, on propofol and fentanyl gtt -Sedation initiated overnight due to increase agitation -Titrate sedation for RASS goal 0 to -1 -Plan for possible SAT/SBT tomorrow -Avoid benzodiazepine to reduce the possibility of delirium -PRN Analgesia for CPOT greater than 3 -Maintenance of sleep-wake cycle #Positive Blood Culture -Blood culture + GPC in 1 out 4 bottles, probable cross contamination -Chest x-ray reviewed, suggestive of pulmonary edema -UA is unremarkable, sputum culture pending -Patient is afebrile, WBCs wnr -Empiric IV Abx- Vanco was initiated -Will repeat Blood cultures and check procal and CRP -Continue to F/U on cultures -Daily CBC monitor -Consider ID consult if febrile or/and if leukocytosis occur #Rectus sheath hematoma #Rib fractures -seen on previous imaging on 01/31 ER visit -Most likely due to some sort of injury/fall -General surgery consulted, assistance appreciated -No plan for any surgical intervention at this time -On heparin gtt per protcol -H&H remains stable -Close monitoring of s/s of active bleeding #Hypoglycemia-improved -Low BG overnight, resolved this am -Enteral nutrition at goal this am -Continue BG check Q6hrs -Avoid Hypoglycemia -Continue Hypoglycemic protocol #Hypokalemia -Patient is on IV lasix -K repleted -Monitor and replace electrolytes as needed #Hyperlipidemia -continue statin at home dose #GI/DVT Prophylaxis -PPI- Pepcid -Heparin gtt The high probability of a clinically significant, sudden or life threatening deterioration of the [multiple] system(s) required my full and direct attention, intervention and personal management. The aggregate critical care time was [60] minutes. This time is in addition to time spent performing reported procedures but includes the following: [x] Data Review and interpretation [x] Patient assessment and monitoring of vital signs [x] Documentation [x] Medication orders and management Disposition Plan: ICU Total Time Spent with Patient (Minutes): 60 History Interval history: Patient seen and examined at the bedside. Intubated and Sedated, on propofol and fentanyl. BP borderline this am but currently stable. Per RN sedation was initiated overnight due to increase agitation. Patient did not tolerate sedation wean this am Hospitalist Physical - Constitutional Vitals: Temp Pulse Resp BP Pulse Ox 97.5 F L 70 20 97/63 96 02/03/22 08:00 02/03/22 10:00 02/03/22 10:00 02/03/22 10:00 02/03/22 10:00 General appearance: Present: no acute distress, other (Intubated and Sedated) - EENT Eyes: Present: PERRL - Respiratory Respiratory effort: normal Respiratory: bilateral: diminished - Cardiovascular Rhythm: other (Vpacing at 70) Heart Sounds: Present: S1 & S2 - Extremities Extremities: no ischemia, pulses intact, pulses symmetrical Extremity abnormal: edema, other (BLE discoloration) - Peripheral Assessment Generalized Edema Type: Non-pitting Edema Degree: 2+ Capillary Refill: < 3 seconds Skin Temperature: Warm Peripheral Pulses: within normal limits - Abdominal General gastrointestinal: soft, non-distended, normal bowel sounds - Integumentary Integumentary: Present: warm, dry - Psychiatric Psychiatric: other (Intubated and Sedated) - Neurologic Neurologic: other (Intubated and Sedated) - Allied Health Allied health notes reviewed: nursing HEART Score - HEART Score Troponin: Troponin T 0.094 ng/mL (0.00-0.029) H 02/03/22 03:57 Results - Labs CBC & Chem 7: 02/03/22 03:57 02/03/22 03:57 Labs: Laboratory Last Values WBC 6.6 K/mm3 (4.5-11.0) 02/03/22 03:57 RBC 4.62 M/mm3 (3.65-5.03) 02/03/22 03:57 Hgb 11.8 gm/dl (10.1-14.3) 02/03/22 03:57 Hct 37.1 % (30.3-42.9) 02/03/22 03:57 MCV 80 fl (79-97) 02/03/22 03:57 MCH 25 pg (28-32) L 02/03/22 03:57 MCHC 32 % (30-34) 02/03/22 03:57 RDW 18.7 % (13.2-15.2) H 02/03/22 03:57 Plt Count 298 K/mm3 (140-440) 02/03/22 03:57 Lymph % (Auto) 13.1 % (13.4-35.0) L 02/03/22 03:57 [place] % (Auto) 10.6 % (0.0-7.3) H 02/03/22 03:57 Eos % (Auto) 3.8 % (0.0-4.3) 02/03/22 03:57 Baso % (Auto) 0.8 % (0.0-1.8) 02/03/22 03:57 Lymph # (Auto) 0.9 K/mm3 (1.2-5.4) L 02/03/22 03:57 [place] # (Auto) 0.7 K/mm3 (0.0-0.8) 02/03/22 03:57 Eos # (Auto) 0.2 K/mm3 (0.0-0.4) 02/03/22 03:57 Baso # (Auto) 0.1 K/mm3 (0.0-0.1) 02/03/22 03:57 Seg Neutrophils % 71.7 % (40.0-70.0) H 02/03/22 03:57 Seg Neutrophils # 4.7 K/mm3 (1.8-7.7) 02/03/22 03:57 PT 16.3 Sec. (12.2-14.9) H 02/02/22 07:50 INR 1.17 (0.87-1.13) H 02/02/22 07:50 APTT 33.2 Sec. (24.2-36.6) 02/02/22 07:50 Heparin Anti-Xa Level 0.34 U.I./ml (0.3-0.7) 02/02/22 20:22 ABG pH 7.440 pH Units (7.350-7.450) 02/03/22 04:20 ABG pCO2 40.1 mm Hg 02/03/22 04:20 ABG pO2 83.9 mm Hg (80.0-90.0) 02/03/22 04:20 ABG HCO3 26.6 mmol/L (20.0-26.0) H 02/03/22 04:20 ABG O2 Saturation 97.1 % (95.0-99.0) 02/03/22 04:20 ABG O2 Content 15.2 (0.0-44) 02/03/22 04:20 ABG Base Excess 2.3 mmol/L (-2.0-3.0) 02/03/22 04:20 ABG Hemoglobin 11.3 gm/dl (12.0-16.0) L 02/03/22 04:20 ABG Carboxyhemoglobin 2.0 % (0.0-5.0) 02/03/22 04:20 ABG Methemoglobin 0.4 % (0.0-1.5) 02/03/22 04:20 Oxyhemoglobin 94.8 % (95.0-99.0) L 02/03/22 04:20 FiO2 40 % 02/03/22 04:20 Sodium 142 mmol/L (137-145) 02/03/22 03:57 Potassium 3.3 mmol/L (3.6-5.0) L 02/03/22 03:57 Chloride 103.3 mmol/L (98-107) 02/03/22 03:57 Carbon Dioxide 27 mmol/L (22-30) 02/03/22 03:57 Anion Gap 15 mmol/L 02/03/22 03:57 BUN 15 mg/dL (7-17) 02/03/22 03:57 Creatinine 1.1 mg/dL (0.6-1.2) 02/03/22 03:57 Estimated GFR > 60 ml/min 02/03/22 03:57 BUN/Creatinine Ratio 14 % 02/03/22 03:57 Glucose 73 mg/dL (65-100) 02/03/22 03:57 POC Glucose 77 mg/dL (70-105) 02/03/22 05:05 Lactic Acid 1.80 mmol/L (0.7-2.0) 02/02/22 07:50 Calcium 8.7 mg/dL (8.4-10.2) 02/03/22 03:57 Magnesium 2.10 mg/dL (1.7-2.3) 02/01/22 21:59 Total Bilirubin 2.30 mg/dL (0.1-1.2) H 02/01/22 21:59 AST 18 units/L (5-40) 02/01/22 21:59 ALT 6 units/L (7-56) L 02/01/22 21:59 Alkaline Phosphatase 97 units/L (35-129) 02/01/22 21:59 Total Creatine Kinase 59 units/L (30-135) 02/02/22 07:50 Troponin T 0.094 ng/mL (0.00-0.029) H 02/03/22 03:57 NT-Pro-B Natriuret Pep 3678 pg/mL (0-900) H 02/02/22 07:50 Total Protein 8.3 g/dL (6.3-8.2) H 02/01/22 21:59 Albumin 3.5 g/dL (3.9-5) L 02/01/22 21:59 Albumin/Globulin Ratio 0.7 % 02/01/22 21:59 Triglycerides 75 mg/dL (2-149) 02/02/22 07:50 Cholesterol 117 mg/dL (50-199) 02/02/22 07:50 LDL Cholesterol Direct 62 mg/dL (50-130) 02/02/22 07:50 HDL Cholesterol 38 mg/dL (40-59) L 02/02/22 07:50 Cholesterol/HDL Ratio 3.07 % 02/02/22 07:50 TSH 1.320 mlU/mL (0.270-4.200) 02/02/22 07:50 Urine Color Yellow (Yellow) 02/02/22 11:17 Urine Turbidity Clear (Clear) 02/02/22 11:17 Urine pH 7.0 (5.0-7.0) 02/02/22 11:17 Ur Specific [place] 1.005 (1.003-1.030) 02/02/22 11:17 Urine Protein 30 mg/dl mg/dL (Negative) 02/02/22 11:17 Urine Glucose (UA) Neg mg/dL (Negative) 02/02/22 11:17 Urine Ketones Neg mg/dL (Negative) 02/02/22 11:17 Urine Blood Sm (Negative) 02/02/22 11:17 Urine Nitrite Neg (Negative) 02/02/22 11:17 Urine Bilirubin Neg (Negative) 02/02/22 11:17 Urine Urobilinogen < 2.0 mg/dL (<2.0) 02/02/22 11:17 Ur Leukocyte Esterase Neg (Negative) 02/02/22 11:17 Urine WBC (Auto) 1.0 /HPF (0.0-6.0) 02/02/22 11:17 Urine RBC (Auto) 1.0 /HPF (0.0-6.0) 02/02/22 11:17 U Epithel Cells (Auto) 1.0 /HPF (0-13.0) 02/02/22 11:17 Urine Bacteria (Auto) 1+ /HPF (Negative) 02/02/22 11:17 Urine Mucus Few /HPF 02/02/22 11:17 Salicylates < 0.3 mg/dL (2.8-20.0) L 02/02/22 07:50 Acetaminophen 5.0 ug/mL (10.0-30.0) L 02/02/22 08:07 Plasma/Serum Alcohol < 0.01 % (0-0.07) 02/02/22 07:50 Microbiology: Microbiology 02/02/22 08:07 Peripheral/Venous Blood Culture - Preliminary NO GROWTH AFTER 24 HOURS 02/02/22 08:07 Peripheral/Venous Blood Culture - Preliminary 02/02/22 10:25 Tracheal Aspirate Sputum Culture - Preliminary [place]/IV: Voiding Method Indwelling Catheter Active Medications - Current Medications Current Medications: Generic Name Dose Route Start Last Admin Trade Name Freq PRN Reason Stop Dose Admin Acetaminophen 650 mg 02/02/22 09:46 Acetaminophen 325 Mg Tab PO Q6H PRN Pain MILD(1-3)/Fever >100.5/VACA Lipase/Protease/Amylase 1 each 02/02/22 11:15 Lipase 10,500/Protease 25,000/Amylase 43,750 (Units) Dr Colon FEEDTUBE PRN PRN For Clogged Feeding Tube Atorvastatin Calcium 40 mg 02/02/22 22:00 02/02/22 22:00 Atorvastatin 40 Mg Tab PO 40 mg QHS HERACLIO Administration Digoxin 0.25 mg 02/02/22 17:00 02/02/22 17:08 Digoxin 0.25 Mg Tab PO 0.25 mg DAILY@1700 HERACLIO Administration Famotidine 10 mg 02/03/22 11:00 Famotidine 10 Mg Tab PO BID HERACLIO Fentanyl 50 mcg 02/02/22 09:57 Fentanyl 100 Mcg/2 Ml Inj IV Q10MIN PRN ANALGESIA Furosemide 40 mg 02/03/22 06:00 02/03/22 05:08 Furosemide 40 Mg/4 Ml Inj IV 40 mg 0600,1800 HERACLIO Administration Gabapentin 300 mg 02/02/22 14:00 02/03/22 08:42 Gabapentin 300 Mg Cap PO 300 mg TID HERACLIO Administration Heparin Sodium (Porcine) 4,500 unit 02/02/22 09:40 Heparin 10,000 Units/10 Ml Vial 40 unit/kg (4500 unit) IV Q6H PRN Anti-Xa Assay < 0.1 units/ml Hydrophilic Ointment 1 applic 02/02/22 09:09 Lip Therapy Vaseline TP Q2HR PRN Dry Lips Propofol 1,000 mg in 100 mls @ 3.402 mls/hr 02/02/22 10:00 02/03/22 00:34 Diprivan 10 Mg/Ml IV 15 mcg/kg/min TITR HERACLIO 10.206 mls/hr Administration Protocol 5 MCG/KG/MIN Heparin Sodium/Sodium Chloride 25,000 unit in 500 mls @ 30 mls/hr 02/02/22 10:00 02/03/22 05:35 Heparin/ 0.45% Nacl-25,000 Unit/500 Ml IV 1,500 units/hr TITR HERACLIO 30 mls/hr Administration Protocol 1,500 UNITS/HR Fentanyl Citrate 2,000 mcg in 100 mls @ 5.67 mls/hr 02/02/22 10:00 02/03/22 08:42 Fentanyl Drip Premix IV 2 mcg/kg/hr TITR HERACLIO 11.34 mls/hr Titration Protocol 1 MCG/KG/HR Vancomycin HCl 1,750 mg/ 535 mls @ 333.333 mls/hr 02/03/22 08:00 02/03/22 08:45 Sodium Chloride IV 333.333 mls/hr Q12H HERACLIO Administration Lisinopril 10 mg 02/02/22 13:00 02/02/22 14:12 Lisinopril 10 Mg Tab PO 10 mg QDAY PENDING SALE TO [facility] Administration Metoprolol Tartrate 50 mg 02/02/22 12:00 02/03/22 03:04 Metoprolol Tartrate 50 Mg Tab PO Not Given Q8H PENDING SALE TO [facility] Multi-Ingred Cream/Lotion/Oil/Oint 1 applic 02/02/22 09:09 Mineral Oil/Petrolatum, White Ophth Oint 3.5 Gm OU Q4HR PRN Dry Eye(s) Potassium Chloride 20 meq 02/03/22 14:00 Potassium Chloride 20 Meq Packet FEEDTUBE 02/03/22 22:01 Q8HR HERACLIO Senna/Docusate Sodium 1 tab 02/02/22 10:00 02/02/22 22:00 Sennosides/Docusate Sodium 8.6/50 Mg Tab FEEDTUBE 1 tab BID HERACLIO Administration Simple Syrup 15 ml 02/02/22 11:15 02/02/22 23:27 Simple Syrup 15 Ml FEEDTUBE 15 ml PRN PRN Administration Hypoglycemia Simple Syrup 30 ml 02/02/22 11:15 Simple Syrup 15 Ml FEEDTUBE PRN PRN Hypoglycemia Sodium Bicarbonate 325 mg 02/02/22 11:15 Sodium Bicarbonate 325 Mg Tab FEEDTUBE PRN PRN For Clogged Feeding Tube Sodium Chloride 10 ml 02/02/22 10:00 02/02/22 22:35 Sodium Chloride 0.9% 10 Ml Flush Syringe IV 10 ml BID HERACLIO Administration Sodium Chloride 10 ml 02/02/22 09:46 Sodium Chloride 0.9% 10 Ml Flush Syringe IV PRN PRN LINE FLUSH Spironolactone 25 mg 02/02/22 13:00 02/02/22 14:13 Spironolactone 25 Mg Tab PO 25 mg QDAY HERACLIO Administration Nutrition/Malnutrition Assess - Dietary Evaluation Nutrition/Malnutrition Findings: Nutrition Notes Start: 02/02/22 12:03 Freq: Status: Active Protocol: Document 02/02/22 12:04 CELENA (Rec: 02/02/22 12:42 CELENA [id number]) Nutrition Notes Need for Assessment generated from: MD Order Initial or Follow up Assessment Current Diagnosis COPD,Respiratory Failure Other Pertinent Diagnosis Encephalopathy, Hypokalemia, Atrial Fibrilation, Bilateral- LE Edema, ... Current Diet NPO (since 02/02 09:47), TF- Vital AF 1.2 Remigio @ 40 ml/hr ( from L 02/02). Labs/Tests 02/02: K 3.0. Pertinent Medications 02/02: KCl 10mEq, Propofol @ 13.608 ml/hr (359 Kcal), others nutritionally unremarkable. Height 5 ft 4 in Weight 113.398 kg [place] Body Weight (kg) 54.54 BMI 42.9 Weight change and time frame None provided at admission. Weight Status Morbidly Obese Subjective/Other Information RD consult for write/manage TF . Pt currently on NPO. Pt is on Mechanical Ventilation, O2 saturation @ 00%, according to MV Assessment notes. Pt presents abdominal pain and hematoma, according to ER Physician Documentation notes. Pt presents R-Rib fracture, according to ER Physician Documentation notes. Pt presents fusion of T11-T12 vertebrae, according to ER Physician Documentation notes. I will prescribe TF to support Pt's nutrition. Percent of energy/protein needs met: Pt currently on NPO. Prescribed TF-Vital AF 1.2 Remigio @ 40 ml/hr provides for energy/protein needs (1,150 Kcal/72 g) during LOS, 78% Kcal; 71% AA. Including 359 Kcal from Propofol, 102% Kcal; 71% AA. Burn Absent Trauma Present GI Symptoms Other Food Allergy No Skin Integrity/Comment Abdominal hematoma. Current % PO Other Minimum of two criteria No Fluid Accumulation Mild (non-severe) Reduced Senior [employer] Strength N/A (non-severe) Protein-Calorie Malnutrition N\A #1 Nutrition Diagnosis Inadequate oral intake Etiology Pt is on Mechanical Ventilation. As Evidenced by Signs and Symptoms Pt is currently on NPO. Is patient on ventilator? Yes Is Patient Ambulatory and/or Out of Bed No REE-([facility]-confined to bed) 2048.892 Kcal/Kg value to use for calculation 13 Approximate Energy Requirements Using 1474 kcal/Kg Calculation Used for Recommendations Kcal/kg Additional Notes Protein: 1.2-2 g/Kg AdjBW; 101 -168 g/day. Fluids: 1 ml/Kcal, or as per MD. Nutrition Intervention Nutrition Support: Start TF-Vital AF 1.2 Remigio @ 40 ml/hr. Flush: 100 ml water Q 4 hr, or as per MD. Kcal 1,150 Protein (gm) 72 Carbohydrates (gm) 106 Fat (gm) 52 Fluid (mL) 777 Fiber (gm) 5 % RDI: 78% Kcal; 71% AA. Goal #1 Provide at least 75% of energy /protein needs through Enteral Feeding during LOS. Goal #2 Maintain body weight within +/ -3% of admission body weight during LOS. Follow-Up By: 02/18/22 Additional Comments Start monitoring TF tolerance and BM. <SHERLYN WHATLEY - Last Filed: 02/04/22 09:46> Assessment and Plan Assessment and plan: I saw and evaluated the patient. Discussed with the nurse practitioner and agree with their findings and plan as documented in this note. Hospitalist Physical - Constitutional Vitals: Temp Pulse Resp BP Pulse Ox 97.3 F L 76 20 97/55 99 02/04/22 08:00 02/04/22 09:00 02/04/22 09:00 02/04/22 09:00 02/04/22 09:00 HEART Score - HEART Score Troponin: Troponin T 0.092 ng/mL (0.00-0.029) H 02/03/22 11:31 Results - Labs CBC & Chem 7: 02/04/22 04:32 02/04/22 04:32 Labs: Laboratory Last Values WBC 7.3 K/mm3 (4.5-11.0) 02/04/22 04:32 RBC 4.50 M/mm3 (3.65-5.03) 02/04/22 04:32 Hgb 11.2 gm/dl (10.1-14.3) 02/04/22 04:32 Hct 36.8 % (30.3-42.9) 02/04/22 04:32 MCV 82 fl (79-97) 02/04/22 04:32 MCH 25 pg (28-32) L 02/04/22 04:32 MCHC 31 % (30-34) 02/04/22 04:32 RDW 18.6 % (13.2-15.2) H 02/04/22 04:32 Plt Count 314 K/mm3 (140-440) 02/04/22 04:32 Lymph % (Auto) 13.1 % (13.4-35.0) L 02/03/22 03:57 [place] % (Auto) 10.6 % (0.0-7.3) H 02/03/22 03:57 Eos % (Auto) 3.8 % (0.0-4.3) 02/03/22 03:57 Baso % (Auto) 0.8 % (0.0-1.8) 02/03/22 03:57 Lymph # (Auto) 0.9 K/mm3 (1.2-5.4) L 02/03/22 03:57 [place] # (Auto) 0.7 K/mm3 (0.0-0.8) 02/03/22 03:57 Eos # (Auto) 0.2 K/mm3 (0.0-0.4) 02/03/22 03:57 Baso # (Auto) 0.1 K/mm3 (0.0-0.1) 02/03/22 03:57 Seg Neutrophils % 71.7 % (40.0-70.0) H 02/03/22 03:57 Seg Neutrophils # 4.7 K/mm3 (1.8-7.7) 02/03/22 03:57 PT 16.3 Sec. (12.2-14.9) H 02/02/22 07:50 INR 1.17 (0.87-1.13) H 02/02/22 07:50 APTT 33.2 Sec. (24.2-36.6) 02/02/22 07:50 Heparin Anti-Xa Level 0.51 U.I./ml (0.3-0.7) 02/03/22 22:23 ABG pH 7.380 pH Units (7.350-7.450) 02/04/22 05:35 ABG pCO2 48.6 mm Hg 02/04/22 05:35 ABG pO2 67.0 mm Hg (80.0-90.0) L 02/04/22 05:35 ABG HCO3 28.1 mmol/L (20.0-26.0) H 02/04/22 05:35 ABG O2 Saturation 93.8 % (95.0-99.0) L 02/04/22 05:35 ABG O2 Content 14.5 (0.0-44) 02/04/22 05:35 ABG Base Excess 2.4 mmol/L (-2.0-3.0) 02/04/22 05:35 ABG Hemoglobin 11.2 gm/dl (12.0-16.0) L 02/04/22 05:35 ABG Carboxyhemoglobin 1.8 % (0.0-5.0) 02/04/22 05:35 ABG Methemoglobin 0.5 % (0.0-1.5) 02/04/22 05:35 Oxyhemoglobin 91.7 % (95.0-99.0) L 02/04/22 05:35 FiO2 40 % 02/04/22 05:35 Sodium 140 mmol/L (137-145) 02/04/22 04:32 Potassium 4.0 mmol/L (3.6-5.0) 02/04/22 04:32 Chloride 105.0 mmol/L (98-107) 02/04/22 04:32 Carbon Dioxide 25 mmol/L (22-30) 02/04/22 04:32 Anion Gap 14 mmol/L 02/04/22 04:32 BUN 19 mg/dL (7-17) H 02/04/22 04:32 Creatinine 1.3 mg/dL (0.6-1.2) H 02/04/22 04:32 Estimated GFR 51 ml/min 02/04/22 04:32 BUN/Creatinine Ratio 15 % 02/04/22 04:32 Glucose 90 mg/dL (65-100) 02/04/22 04:32 POC Glucose 86 mg/dL (70-105) 02/03/22 23:44 Lactic Acid 1.80 mmol/L (0.7-2.0) 02/02/22 07:50 Calcium 8.6 mg/dL (8.4-10.2) 02/04/22 04:32 Phosphorus 2.60 mg/dL (2.5-4.5) 02/04/22 04:32 Magnesium 1.90 mg/dL (1.7-2.3) 02/04/22 04:32 Total Bilirubin 2.30 mg/dL (0.1-1.2) H 02/01/22 21:59 AST 18 units/L (5-40) 02/01/22 21:59 ALT 6 units/L (7-56) L 02/01/22 21:59 Alkaline Phosphatase 97 units/L (35-129) 02/01/22 21:59 Total Creatine Kinase 59 units/L (30-135) 02/02/22 07:50 Troponin T 0.092 ng/mL (0.00-0.029) H 02/03/22 11:31 C-Reactive Protein 6.20 mg/dL (0.00-1.30) H 02/03/22 11:31 NT-Pro-B Natriuret Pep 3678 pg/mL (0-900) H 02/02/22 07:50 Total Protein 8.3 g/dL (6.3-8.2) H 02/01/22 21:59 Albumin 3.5 g/dL (3.9-5) L 02/01/22 21:59 Albumin/Globulin Ratio 0.7 % 02/01/22 21:59 Triglycerides 75 mg/dL (2-149) 02/02/22 07:50 Cholesterol 117 mg/dL (50-199) 02/02/22 07:50 LDL Cholesterol Direct 62 mg/dL (50-130) 02/02/22 07:50 HDL Cholesterol 38 mg/dL (40-59) L 02/02/22 07:50 Cholesterol/HDL Ratio 3.07 % 02/02/22 07:50 TSH 1.320 mlU/mL (0.270-4.200) 02/02/22 07:50 Urine Color Yellow (Yellow) 02/02/22 11:17 Urine Turbidity Clear (Clear) 02/02/22 11:17 Urine pH 7.0 (5.0-7.0) 02/02/22 11:17 Ur Specific [place] 1.005 (1.003-1.030) 02/02/22 11:17 Urine Protein 30 mg/dl mg/dL (Negative) 02/02/22 11:17 Urine Glucose (UA) Neg mg/dL (Negative) 02/02/22 11:17 Urine Ketones Neg mg/dL (Negative) 02/02/22 11:17 Urine Blood Sm (Negative) 02/02/22 11:17 Urine Nitrite Neg (Negative) 02/02/22 11:17 Urine Bilirubin Neg (Negative) 02/02/22 11:17 Urine Urobilinogen < 2.0 mg/dL (<2.0) 02/02/22 11:17 Ur Leukocyte Esterase Neg (Negative) 02/02/22 11:17 Urine WBC (Auto) 1.0 /HPF (0.0-6.0) 02/02/22 11:17 Urine RBC (Auto) 1.0 /HPF (0.0-6.0) 02/02/22 11:17 U Epithel Cells (Auto) 1.0 /HPF (0-13.0) 02/02/22 11:17 Urine Bacteria (Auto) 1+ /HPF (Negative) 02/02/22 11:17 Urine Mucus Few /HPF 02/02/22 11:17 Salicylates < 0.3 mg/dL (2.8-20.0) L 02/02/22 07:50 Acetaminophen 5.0 ug/mL (10.0-30.0) L 02/02/22 08:07 Plasma/Serum Alcohol < 0.01 % (0-0.07) 02/02/22 07:50 Microbiology: Microbiology 02/03/22 11:31 Peripheral/Venous Blood Culture - Preliminary Culture in Progress 02/03/22 11:51 Peripheral/Venous Blood Culture - Preliminary Culture in Progress 02/02/22 10:25 Tracheal Aspirate Sputum Culture - Preliminary 02/02/22 08:07 Peripheral/Venous Blood Culture - Preliminary NO GROWTH AFTER 24 HOURS 02/02/22 08:07 Peripheral/Venous Blood Culture - Preliminary [place]/IV: Voiding Method Indwelling Catheter Active Medications - Current Medications Current Medications: Generic Name Dose Route Start Last Admin Trade Name Freq PRN Reason Stop Dose Admin Acetaminophen 650 mg 02/02/22 09:46 Acetaminophen 325 Mg Tab PO Q6H PRN Pain MILD(1-3)/Fever >100.5/VACA Lipase/Protease/Amylase 1 each 02/02/22 11:15 Lipase 10,500/Protease 25,000/Amylase 43,750 (Units) Dr Colon FEEDTUBE PRN PRN For Clogged Feeding Tube Atorvastatin Calcium 40 mg 02/02/22 22:00 02/03/22 21:10 Atorvastatin 40 Mg Tab PO 40 mg QHS HERACLIO Administration Digoxin 0.25 mg 02/02/22 17:00 02/03/22 17:12 Digoxin 0.25 Mg Tab PO Not Given DAILY@1700 HERACLIO Epinephrine 0.5 ml 02/04/22 09:44 Epinephrine Racemic 2.25% 0.5ml Nebu IH 02/04/22 09:45 ONCE ONE Famotidine 10 mg 02/03/22 11:00 02/03/22 21:10 Famotidine 10 Mg Tab PO 10 mg BID HERACLIO Administration Fentanyl 50 mcg 02/02/22 09:57 Fentanyl 100 Mcg/2 Ml Inj IV Q10MIN PRN ANALGESIA Furosemide 40 mg 02/03/22 06:00 02/04/22 05:11 Furosemide 40 Mg/4 Ml Inj IV Not Given 0600,1800 HERACLIO Gabapentin 300 mg 02/02/22 14:00 02/04/22 07:56 Gabapentin 300 Mg Cap PO 300 mg TID HERACLIO Administration Heparin Sodium (Porcine) 4,500 unit 02/02/22 09:40 Heparin 10,000 Units/10 Ml Vial 40 unit/kg (4500 unit) IV Q6H PRN Anti-Xa Assay < 0.1 units/ml Hydrophilic Ointment 1 applic 02/02/22 09:09 Lip Therapy Vaseline TP Q2HR PRN Dry Lips Propofol 1,000 mg in 100 mls @ 3.402 mls/hr 02/02/22 10:00 02/03/22 13:11 Diprivan 10 Mg/Ml IV 0 mcg/kg/min TITR HERACLIO 0 mls/hr Titration Protocol 5 MCG/KG/MIN Heparin Sodium/Sodium Chloride 25,000 unit in 500 mls @ 30 mls/hr 02/02/22 10:00 02/03/22 23:32 Heparin/ 0.45% Nacl-25,000 Unit/500 Ml IV 1,500 units/hr TITR HERACLIO 30 mls/hr Titration Protocol 1,500 UNITS/HR Fentanyl Citrate 2,000 mcg in 100 mls @ 5.67 mls/hr 02/02/22 10:00 02/04/22 07:56 Fentanyl Drip Premix IV 1 mcg/kg/hr TITR HERACLIO 5.67 mls/hr Titration Protocol 1 MCG/KG/HR Vancomycin HCl 1,750 mg/ 535 mls @ 333.333 mls/hr 02/04/22 08:00 02/04/22 07:56 Sodium Chloride IV 333.333 mls/hr Q24H HERACLIO Administration Lisinopril 10 mg 02/02/22 13:00 02/03/22 10:29 Lisinopril 10 Mg Tab PO Not Given QDAY HERACLIO Metoprolol Tartrate 50 mg 02/02/22 12:00 02/04/22 03:04 Metoprolol Tartrate 50 Mg Tab PO Not Given Q8H PENDING SALE TO [facility] Multi-Ingred Cream/Lotion/Oil/Oint 1 applic 02/02/22 09:09 Mineral Oil/Petrolatum, White Ophth Oint 3.5 Gm OU Q4HR PRN Dry Eye(s) Senna/Docusate Sodium 1 tab 02/02/22 10:00 02/03/22 21:10 Sennosides/Docusate Sodium 8.6/50 Mg Tab FEEDTUBE 1 tab BID HERACLIO Administration Simple Syrup 15 ml 02/02/22 11:15 02/02/22 23:27 Simple Syrup 15 Ml FEEDTUBE 15 ml PRN PRN Administration Hypoglycemia Simple Syrup 30 ml 02/02/22 11:15 Simple Syrup 15 Ml FEEDTUBE PRN PRN Hypoglycemia Sodium Bicarbonate 325 mg 02/02/22 11:15 Sodium Bicarbonate 325 Mg Tab FEEDTUBE PRN PRN For Clogged Feeding Tube Sodium Chloride 10 ml 02/02/22 10:00 02/03/22 21:10 Sodium Chloride 0.9% 10 Ml Flush Syringe IV 10 ml BID [facility] Administration Sodium Chloride 10 ml 02/02/22 09:46 Sodium Chloride 0.9% 10 Ml Flush Syringe IV PRN PRN LINE FLUSH Spironolactone 25 mg 02/02/22 13:00 02/03/22 10:28 Spironolactone 25 Mg Tab PO Not Given QDAY [facility] Nutrition/Malnutrition Assess - Dietary Evaluation Nutrition/Malnutrition Findings: Nutrition Notes Start: 02/02/22 12:03 Freq: Status: Active Protocol: Document 02/03/22 11:18 [facility] (Rec: 02/03/22 11:30 [facility] [id number] Nutrition Notes Initial or Follow up Reassessment Current Diagnosis COPD,Heart Failure,Respiratory Failure,Hyperlipidemia Other Pertinent Diagnosis Pulmonary edema, Rectus sheath hematoma, Rib fx, chronic afib Current Diet TF - Vital AF 1.2 at 40ml/hr Labs/Tests K 3.3 Pertinent Medications Lasix, Heparin gtt, 20mEq KCl q8h, Propofol at 10.206ml/hr ( provides 269 kcal), Senokot Height 5 ft 4 in Weight 113.398 kg [place] Body Weight (kg) 54.54 BMI 42.9 Weight Status Morbidly Obese Subjective/Other Information Pt remains on vent support. Pt tolerating TF at goal rate. RN informed of intent to change TF formula to provide additional protein for this pt . Percent of energy/protein needs met: 86% energy 53% pro Burn Absent Trauma Present #2 Nutrition Diagnosis Inadequate protein intake Etiology EN prescription As Evidenced by Signs and Symptoms current TF formula and rate provides <75% of estimated protein needs #1 Nutrition Diagnosis Inadequate oral intake Diagnosis Progress(for reassessment Continues documentation) Is patient on ventilator? Yes Is Patient Ambulatory and/or Out of Bed No REE-([place] Ject-confined to bed) 2047.89 Calculation Used for Recommendations 65-70% REE Additional Notes Energy needs: 2840-8089 kcal/ day Pro needs up to 2.5g/kg IBW: up to 136g/day Fluid needs 1ml/kcal Nutrition Intervention Nutrition Support: Change TF formula to Vital High Protein at 60ml/hr with 50ml water flush q4h. Kcal 1,440 Protein (gm) 126 Carbohydrates (gm) 161 Fat (gm) 33 Fluid (mL) 1,204 Fiber (gm) 0 Goal #1 TF tolerance Goal #2 TF to meet 65-70% REE and at least 75% pro needs Anticipated Discharge Needs: Continue EN support if necessary Follow-Up By: 02/05/22 Additional Comments F/U: TF formula change/ tolerance, vent status, propofol
[2022-02-03] MEDS: SPIRONOLACTONE 25 MG TAB PO SCH (10:28)
[2022-02-03] MEDS: LISINOPRIL 10 MG TAB PO SCH (10:29)
[2022-02-03] MEDS: FAMOTIDINE 10 MG TAB PO SCH ×2 (11:00→21:10)
--- NOTE | 2022-02-03 11:22 | Consultation ---
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 On previous admissions, she has been documented with poor compliance with medical therapy including noncompliance with oral warfarin. Comorbidities include chronic abdominal pain, diarrhea, related to her Crohn's disease. It is documented that in recent weeks, she was seen and discharged from the emergency room for rib fractures and rectus sheath hematoma which presumably resulted from a fall. At that time her INR was recorded as subtherapeutic, but I am uncertain what her instructions were given with regards to her anticoagulation regimen for mechanical valves. Patient presents now with altered mental status, in the emergency room reportedly was unable to articulate her symptoms status. There was a report that there was persistent abdominal pain and diarrhea associated with her chronic Crohn's disease. She was admitted for further evaluation and management. Patient ultimately developed respiratory failure and is currently intubated, and sedated on the vent. Cardiology consultation was requested for borderline troponin increase. Work-up so far, laboratory values show a subtherapeutic INR 1.17, but stable hematocrit at 37. ECG was a ventricular paced rhythm. Chest x-ray revealed a moderate severity cardiomegaly, small right pleural effusion. Recent echocardio gram done just 2 months ago in this hospital showed left ventricular ejection fraction 30 to 35%, well-functioning mechanical aortic valve, well-functioning mechanical mitral valve. Past History Past Medical History: COPD, heart failure, other (Valvular heart disease) Past Surgical History: valve replacement, Other (Mechanical MVR, AVR) Social history: smoking Medications and Allergies Allergies Allergy/AdvReac Type Severity Reaction Status Date / Time No Known Allergies Allergy Verified 11/26/21 08:08 Home Medications Medication Instructions Recorded Confirmed Last Taken Type Gabapentin 300 mg PO TID #90 cap 06/18/19 11/22/21 Unknown Rx Furosemide [Lasix] 40 mg PO QDAY 11/26/21 11/26/21 Unknown History Oxycodone HCl [roxiCODONE] 30 mg PO Q8H PRN 11/26/21 11/26/21 Unknown History Warfarin Sodium 1 tab PO DAILY 11/26/21 11/26/21 Unknown History AtorvaSTATin [Lipitor] 40 mg PO QHS #30 tablet 11/27/21 Unknown Rx Digoxin [Lanoxin] 0.25 mg PO DAILY@1700 #30 tablet 11/27/21 Unknown Rx Docusate Sodium [Colace CAP] 100 mg PO BID PRN #60 capsule 11/27/21 Unknown Rx Metoprolol [Lopressor TAB] 50 mg PO Q8H #90 tablet 11/27/21 Unknown Rx Spironolactone [Aldactone] 25 mg PO QDAY #30 tablet 11/27/21 Unknown Rx lisinopriL [Zestril TAB] 10 mg PO QDAY #30 tablet 11/27/21 Unknown Rx Ondansetron [Zofran Odt] 4 mg PO Q8HR PRN #14 tab.rapdis 01/30/22 Unknown Rx oxyCODONE /ACETAMINOPHEN [Percocet 1 tab PO Q6HR PRN #14 tablet 01/30/22 Unknown Rx 5/325] Active Meds: Active Medications Acetaminophen (Acetaminophen 325 Mg Tab) 650 mg PO Q6H PRN PRN Reason: Pain MILD(1-3)/Fever >100.5/VACA Lipase/Protease/Amylase (Lipase 10,500/Protease 25,000/Amylase 43,750 (Units) Dr Cap) 1 each FEEDTUBE PRN PRN PRN Reason: For Clogged Feeding Tube Atorvastatin Calcium (Atorvastatin 40 Mg Tab) 40 mg PO QHS [facility] Last Admin: 02/02/22 22:00 Dose: 40 mg Digoxin (Digoxin 0.25 Mg Tab) 0.25 mg PO DAILY@1700 [facility] Last Admin: 02/02/22 17:08 Dose: 0.25 mg Famotidine (Famotidine 10 Mg Tab) 10 mg PO BID [facility] Fentanyl (Fentanyl 100 Mcg/2 Ml Inj) 50 mcg IV Q10MIN PRN PRN Reason: ANALGESIA Furosemide (Furosemide 40 Mg/4 Ml Inj) 40 mg IV 0600,1800 [facility] Last Admin: 02/03/22 05:08 Dose: 40 mg Gabapentin (Gabapentin 300 Mg Cap) 300 mg PO TID [facility] Last Admin: 02/03/22 08:42 Dose: 300 mg Heparin Sodium (Porcine) (Heparin 10,000 Units/10 Ml Vial) 4,500 unit 40 unit/kg (4500 unit) IV Q6H PRN PRN Reason: Anti-Xa Assay < 0.1 units/ml Hydrophilic Ointment (Lip Therapy Vaseline) 1 applic TP Q2HR PRN PRN Reason: Dry Lips Propofol (Diprivan 10 Mg/Ml) 1,000 mg in 100 mls @ 3.402 mls/hr IV TITR [facility]; Protocol Last Titration: 02/03/22 08:30 Dose: 5 mcg/kg/min, 3.402 mls/hr Heparin Sodium/Sodium Chloride (Heparin/ 0.45% Nacl-25,000 Unit/500 Ml) 25,000 unit in 500 mls @ 30 mls/hr IV TITR [facility]; Protocol Last Admin: 02/03/22 05:35 Dose: 1,500 units/hr, 30 mls/hr Fentanyl Citrate (Fentanyl Drip Premix) 2,000 mcg in 100 mls @ 5.67 mls/hr IV TITR [facility]; Protocol Last Titration: 02/03/22 08:42 Dose: 2 mcg/kg/hr, 11.34 mls/hr Vancomycin HCl 1,750 mg/ (Sodium Chloride) 535 mls @ 333.333 mls/hr IV Q24H [facility] Lisinopril (Lisinopril 10 Mg Tab) 10 mg PO QDAY [facility] Last Admin: 02/03/22 10:29 Dose: Not Given Metoprolol Tartrate (Metoprolol Tartrate 50 Mg Tab) 50 mg PO Q8H [facility] Last Admin: 02/03/22 03:04 Dose: Not Given Multi-Ingred Cream/Lotion/Oil/Oint (Mineral Oil/Petrolatum, White Ophth Oint 3.5 Gm) 1 applic OU Q4HR PRN PRN Reason: Dry Eye(s) Potassium Chloride (Potassium Chloride 20 Meq Packet) 20 meq FEEDTUBE Q8HR [facility] Stop: 02/03/22 22:01 Senna/Docusate Sodium (Sennosides/Docusate Sodium 8.6/50 Mg Tab) 1 tab FEEDTUBE BID [facility] Last Admin: 02/02/22 22:00 Dose: 1 tab Simple Syrup (Simple Syrup 15 Ml) 15 ml FEEDTUBE PRN PRN PRN Reason: Hypoglycemia Last Admin: 02/02/22 23:27 Dose: 15 ml Simple Syrup (Simple Syrup 15 Ml) 30 ml FEEDTUBE PRN PRN PRN Reason: Hypoglycemia Sodium Bicarbonate (Sodium Bicarbonate 325 Mg Tab) 325 mg FEEDTUBE PRN PRN PRN Reason: For Clogged Feeding Tube Sodium Chloride (Sodium Chloride 0.9% 10 Ml Flush Syringe) 10 ml IV BID [facility] Last Admin: 02/03/22 10:30 Dose: 10 ml Sodium Chloride (Sodium Chloride 0.9% 10 Ml Flush Syringe) 10 ml IV PRN PRN PRN Reason: LINE FLUSH Spironolactone (Spironolactone 25 Mg Tab) 25 mg PO QDAY [facility] Last Admin: 02/03/22 10:28 Dose: Not Given Review of Systems ROS unobtainable: due to endotracheal tube, due to mental status Physical Examination Vital Signs Temp Pulse Resp BP Pulse Ox 98 F 82 18 150/98 100 02/01/22 21:02/01/22 21:22 02/01/22 21:22 02/01/22 21:02/01/22 21:22 General appearance: other (Sedated, on the vent) HEENT: Positive: Other (Pupils fixed) Neck: Positive: neck supple Cardiac: Positive: Reg Rate and Rhythm, Systolic Murmur Lungs: Positive: Decreased Breath Sounds Neuro: Positive: Weakness (Sedated, on the vent) Abdomen: Positive: Soft Female genitourinary: deferred Skin: Positive: Clear Extremities: Absent: edema Results 02/03/22 03:57 02/03/22 03:57 CBC 02/03/22 Range/Units 03:57 WBC 6.6 (4.5-11.0) K/mm3 RBC 4.62 (3.65-5.03) M/mm3 Hgb 11.8 (10.1-14.3) gm/dl Hct 37.1 (30.3-42.9) % Plt Count 298 (140-440) K/mm3 Lymph # (Auto) 0.9 L (1.2-5.4) K/mm3 [place] # (Auto) 0.7 (0.0-0.8) K/mm3 Eos # (Auto) 0.2 (0.0-0.4) K/mm3 Baso # (Auto) 0.1 (0.0-0.1) K/mm3 Comprehensive Metabolic Panel 02/03/22 Range/Units 03:57 Sodium 142 (137-145) mmol/L Potassium 3.3 L (3.6-5.0) mmol/L Chloride 103.3 (98-107) mmol/L Carbon Dioxide 27 (22-30) mmol/L BUN 15 (7-17) mg/dL Creatinine 1.1 (0.6-1.2) mg/dL Glucose 73 (65-100) mg/dL Calcium 8.7 (8.4-10.2) mg/dL EKG interpretations Pacemaker: ventricular pacing w/capt Assessment and Plan - Patient Problems (1) Respiratory failure Current Visit: Yes Status: Acute Plan to address problem: Patient presented with altered mental status and acute respiratory failure, currently on the vent. Continue supportive management in ICU care. (2) Dilated cardiomyopathy Current Visit: Yes Status: Acute Plan to address problem: Will resume guideline directed medical therapy as tolerated for chronic systolic left ventricular dysfunction. (3) H/O mechanical aortic valve replacement Current Visit: Yes Status: Acute Plan to address problem: Patient has mechanical mitral and aortic valve replacements, chronically noncompliant with warfarin. We will resume anticoagulation therapy and aim to restore therapeutic INR levels prior to hospital discharge. Resumption of anticoagulation should be judicious, in the setting of recent rib fractures and rectus sheath hematoma.
--- NOTE | 2022-02-03 12:23 | Consultation ---
History of Present Illness Consult date: 02/03/22 Requesting physician: ANTWAN JORDAN Reason for consult: hypoxemia History of present illness: 56 y/o female admitted with altered mental status and subsequently acute respiratory failure from altered mental state. Currently intubated and sedated so no further history is able to be obtained from patient. Past History Past Medical History: COPD, heart failure, other (Valvular heart disease) Past Surgical History: valve replacement, Other (Mechanical MVR, AVR) Social history: smoking Medications and Allergies Allergies Allergy/AdvReac Type Severity Reaction Status Date / Time No Known Allergies Allergy Verified 11/26/21 08:08 Home Medications Medication Instructions Recorded Confirmed Last Taken Type Gabapentin 300 mg PO TID #90 cap 06/18/19 02/03/22 Unknown Rx Furosemide [Lasix] 40 mg PO QDAY 11/26/21 02/03/22 Unknown History Oxycodone HCl [roxiCODONE] 30 mg PO Q8H PRN 11/26/21 02/03/22 Unknown History Warfarin Sodium 1 tab PO DAILY 11/26/21 02/03/22 Unknown History AtorvaSTATin [Lipitor] 40 mg PO QHS #30 tablet 11/27/21 02/03/22 Unknown Rx Digoxin [Lanoxin] 0.25 mg PO DAILY@1700 #30 tablet 11/27/21 02/03/22 Unknown Rx Docusate Sodium [Colace CAP] 100 mg PO BID PRN #60 capsule 11/27/21 02/03/22 Unknown Rx Metoprolol [Lopressor TAB] 50 mg PO Q8H #90 tablet 11/27/21 02/03/22 Unknown Rx Spironolactone [Aldactone] 25 mg PO QDAY #30 tablet 11/27/21 02/03/22 Unknown Rx lisinopriL [Zestril TAB] 10 mg PO QDAY #30 tablet 11/27/21 02/03/22 Unknown Rx Ondansetron [Zofran Odt] 4 mg PO Q8HR PRN #14 tab.rapdis 01/30/22 02/03/22 Unknown Rx oxyCODONE /ACETAMINOPHEN [Percocet 1 tab PO Q6HR PRN #14 tablet 01/30/22 02/03/22 Unknown Rx 5/325] Active Meds: Active Medications Acetaminophen (Acetaminophen 325 Mg Tab) 650 mg PO Q6H PRN PRN Reason: Pain MILD(1-3)/Fever >100.5/VACA Lipase/Protease/Amylase (Lipase 10,500/Protease 25,000/Amylase 43,750 (Units) Dr Cap) 1 each FEEDTUBE PRN PRN PRN Reason: For Clogged Feeding Tube Atorvastatin Calcium (Atorvastatin 40 Mg Tab) 40 mg PO QHS [facility] Last Admin: 02/02/22 22:00 Dose: 40 mg Digoxin (Digoxin 0.25 Mg Tab) 0.25 mg PO DAILY@1700 [facility] Last Admin: 02/02/22 17:08 Dose: 0.25 mg Famotidine (Famotidine 10 Mg Tab) 10 mg PO BID [facility] Last Admin: 02/03/22 11:00 Dose: 10 mg Fentanyl (Fentanyl 100 Mcg/2 Ml Inj) 50 mcg IV Q10MIN PRN PRN Reason: ANALGESIA Furosemide (Furosemide 40 Mg/4 Ml Inj) 40 mg IV 0600,1800 [facility] Last Admin: 02/03/22 05:08 Dose: 40 mg Gabapentin (Gabapentin 300 Mg Cap) 300 mg PO TID [facility] Last Admin: 02/03/22 08:42 Dose: 300 mg Heparin Sodium (Porcine) (Heparin 10,000 Units/10 Ml Vial) 4,500 unit 40 unit/kg (4500 unit) IV Q6H PRN PRN Reason: Anti-Xa Assay < 0.1 units/ml Hydrophilic Ointment (Lip Therapy Vaseline) 1 applic TP Q2HR PRN PRN Reason: Dry Lips Propofol (Diprivan 10 Mg/Ml) 1,000 mg in 100 mls @ 3.402 mls/hr IV TITR [facility]; Protocol Last Titration: 02/03/22 08:30 Dose: 5 mcg/kg/min, 3.402 mls/hr Heparin Sodium/Sodium Chloride (Heparin/ 0.45% Nacl-25,000 Unit/500 Ml) 25,000 unit in 500 mls @ 30 mls/hr IV TITR [facility]; Protocol Last Admin: 02/03/22 05:35 Dose: 1,500 units/hr, 30 mls/hr Fentanyl Citrate (Fentanyl Drip Premix) 2,000 mcg in 100 mls @ 5.67 mls/hr IV TITR [facility]; Protocol Last Titration: 02/03/22 12:01 Dose: 3 mcg/kg/hr, 17.01 mls/hr Vancomycin HCl 1,750 mg/ (Sodium Chloride) 535 mls @ 333.333 mls/hr IV Q24H [facility] Lisinopril (Lisinopril 10 Mg Tab) 10 mg PO QDAY [facility] Last Admin: 02/03/22 10:29 Dose: Not Given Metoprolol Tartrate (Metoprolol Tartrate 50 Mg Tab) 50 mg PO Q8H [facility] Last Admin: 02/03/22 12:03 Dose: Not Given Multi-Ingred Cream/Lotion/Oil/Oint (Mineral Oil/Petrolatum, White Ophth Oint 3.5 Gm) 1 applic OU Q4HR PRN PRN Reason: Dry Eye(s) Potassium Chloride (Potassium Chloride 20 Meq Packet) 20 meq FEEDTUBE Q8HR [facility] Stop: 02/03/22 22:01 Senna/Docusate Sodium (Sennosides/Docusate Sodium 8.6/50 Mg Tab) 1 tab FEEDTUBE BID [facility] Last Admin: 02/03/22 10:00 Dose: 1 tab Simple Syrup (Simple Syrup 15 Ml) 15 ml FEEDTUBE PRN PRN PRN Reason: Hypoglycemia Last Admin: 02/02/22 23:27 Dose: 15 ml Simple Syrup (Simple Syrup 15 Ml) 30 ml FEEDTUBE PRN PRN PRN Reason: Hypoglycemia Sodium Bicarbonate (Sodium Bicarbonate 325 Mg Tab) 325 mg FEEDTUBE PRN PRN PRN Reason: For Clogged Feeding Tube Sodium Chloride (Sodium Chloride 0.9% 10 Ml Flush Syringe) 10 ml IV BID [facility] Last Admin: 02/03/22 10:30 Dose: 10 ml Sodium Chloride (Sodium Chloride 0.9% 10 Ml Flush Syringe) 10 ml IV PRN PRN PRN Reason: LINE FLUSH Spironolactone (Spironolactone 25 Mg Tab) 25 mg PO QDAY [facility] Last Admin: 02/03/22 10:28 Dose: Not Given Review of Systems ROS unobtainable: due to endotracheal tube, due to mental status Physical Examination Vital signs: Vital Signs Temp Pulse Resp BP Pulse Ox 98 F 82 18 150/98 100 02/01/22 21:22 02/01/22 21:22 02/01/22 21:22 02/01/22 21:22 02/01/22 21:22 Results - Laboratory Findings CBC and BMP: 02/04/22 04:32 02/04/22 04:32 ABG ABG pH 7.440 pH Units (7.350-7.450) 02/03/22 04:20 ABG pCO2 40.1 mm Hg 02/03/22 04:20 ABG pO2 83.9 mm Hg (80.0-90.0) 02/03/22 04:20 ABG O2 Saturation 97.1 % (95.0-99.0) 02/03/22 04:20 PT/INR, D-dimer PT 16.3 Sec. (12.2-14.9) H 02/02/22 07:50 INR 1.17 (0.87-1.13) H 02/02/22 07:50 Abnormal lab findings: Abnormal Labs 02/01/22 02/01/22 02/02/22 21:59 21:59 07:50 MCH 25 L RDW 19.0 H Lymph % (Auto) [place] % (Auto) 7.4 H Lymph # (Auto) 0.9 L Seg Neutrophils % 76.0 H PT 16.3 H INR 1.17 H Heparin Anti-Xa Level ABG pO2 ABG HCO3 ABG Hemoglobin Oxyhemoglobin Potassium 3.0 L POC Glucose Total Bilirubin 2.30 H ALT 6 L Troponin T NT-Pro-B Natriuret Pep Total Protein 8.3 H Albumin 3.5 L HDL Cholesterol Salicylates Acetaminophen 02/02/22 02/02/22 02/02/22 07:50 07:50 08:07 MCH RDW Lymph % (Auto) [place] % (Auto) Lymph # (Auto) Seg Neutrophils % PT INR Heparin Anti-Xa Level ABG pO2 ABG HCO3 ABG Hemoglobin Oxyhemoglobin Potassium POC Glucose Total Bilirubin ALT Troponin T 0.077 H NT-Pro-B Natriuret Pep 3678 H Total Protein Albumin HDL Cholesterol 38 L Salicylates < 0.3 L Acetaminophen 5.0 L 02/02/22 02/02/22 02/02/22 10:30 12:42 18:37 MCH RDW Lymph % (Auto) [place] % (Auto) Lymph # (Auto) Seg Neutrophils % PT INR Heparin Anti-Xa Level 0.10 L ABG pO2 153.8 H ABG HCO3 26.5 H ABG Hemoglobin 10.9 L Oxyhemoglobin Potassium POC Glucose 69 L Total Bilirubin ALT Troponin T NT-Pro-B Natriuret Pep Total Protein Albumin HDL Cholesterol Salicylates Acetaminophen 02/02/22 02/03/22 02/03/22 23:24 03:57 03:57 MCH 25 L RDW 18.7 H Lymph % (Auto) 13.1 L [place] % (Auto) 10.6 H Lymph # (Auto) 0.9 L Seg Neutrophils % 71.7 H PT INR Heparin Anti-Xa Level ABG pO2 ABG HCO3 ABG Hemoglobin Oxyhemoglobin Potassium 3.3 L POC Glucose 60 L Total Bilirubin ALT Troponin T 0.094 H NT-Pro-B Natriuret Pep Total Protein Albumin HDL Cholesterol Salicylates Acetaminophen 02/03/22 04:20 MCH RDW Lymph % (Auto) [place] % (Auto) Lymph # (Auto) Seg Neutrophils % PT INR Heparin Anti-Xa Level ABG pO2 ABG HCO3 26.6 H ABG Hemoglobin 11.3 L Oxyhemoglobin 94.8 L Potassium POC Glucose Total Bilirubin ALT Troponin T NT-Pro-B Natriuret Pep Total Protein Albumin HDL Cholesterol Salicylates Acetaminophen - Diagnostic Findings Chest x-ray: image reviewed Assessment and Plan 56 y/o female admitted with altered mental state and acute respiratory failure. 1. Wean sedation as tolerated 2. SBT and awakening trials daily 3. Volume removal 4. Heparin for mechanical valve as INR is subtherapeutic 5. BP control CCT 31 minutes.
[2022-02-03 13:27] LABS: C-Reactive Protein 6.2 mg/dL (0.00-1.30)
[2022-02-03] MEDS: POTASSIUM CHLORIDE 20 MEQ PACKET FEEDTUBE SCH ×2 (14:19→21:10)
--- NOTE | 2022-02-03 16:10 | Progress Note ---
Assessment and Plan - Patient Problems (1) Rectus sheath hematoma Current Visit: Yes Status: Acute Plan to address problem: 1) Stable. Continue anticoagulation. Subjective Date of service: 02/03/22 Patient Reports: Positive: no new complaints Objective Vital Signs - 12hr 02/03/22 02/03/22 02/03/22 04:10 04:12 05:00 Temperature Pulse Rate 70 Pulse Rate [ From Monitor] Pulse Rate [ 71 None] Pulse Rate [ Radial] Respiratory Rate Blood Pressure 105/65 105/65 O2 Sat by Pulse 96 Oximetry 02/03/22 02/03/22 02/03/22 08:00 08:20 09:00 Temperature 97.5 F L Pulse Rate 70 70 Pulse Rate [ 70 From Monitor] Pulse Rate [ None] Pulse Rate [ 70 70 Radial] Respiratory 20 20 Rate Blood Pressure 91/54 97/63 105/64 O2 Sat by Pulse 100 97 Oximetry 02/03/22 02/03/22 02/03/22 10:00 10:28 10:29 Temperature Pulse Rate Pulse Rate [ From Monitor] Pulse Rate [ None] Pulse Rate [ 70 Radial] Respiratory 20 Rate Blood Pressure 97/63 97/63 97/63 O2 Sat by Pulse 96 Oximetry 02/03/22 02/03/22 02/03/22 11:00 12:00 12:03 Temperature 97.2 F L Pulse Rate 70 70 Pulse Rate [ 70 From Monitor] Pulse Rate [ None] Pulse Rate [ 70 70 Radial] Respiratory 20 20 Rate Blood Pressure 102/51 102/60 102/60 O2 Sat by Pulse 100 Oximetry 02/03/22 02/03/22 02/03/22 13:00 14:00 15:00 Temperature Pulse Rate Pulse Rate [ From Monitor] Pulse Rate [ None] Pulse Rate [ 70 70 77 Radial] Respiratory 20 20 20 Rate Blood Pressure 94/50 95/49 102/44 O2 Sat by Pulse 94 92 92 Oximetry 02/03/22 16:00 Temperature 97.8 F Pulse Rate 70 Pulse Rate [ From Monitor] Pulse Rate [ None] Pulse Rate [ 70 Radial] Respiratory 20 Rate Blood Pressure 98/39 O2 Sat by Pulse 91 Oximetry - Abdomen other (No change in RUQ hematoma) - Labs 02/03/22 03:57 02/03/22 03:57 Diabetes panel 02/03/22 Range/Units 03:57 Sodium 142 (137-145) mmol/L Potassium 3.3 L (3.6-5.0) mmol/L Chloride 103.3 (98-107) mmol/L Carbon Dioxide 27 (22-30) mmol/L BUN 15 (7-17) mg/dL Creatinine 1.1 (0.6-1.2) mg/dL Glucose 73 (65-100) mg/dL Calcium 8.7 (8.4-10.2) mg/dL Calcium panel 02/03/22 Range/Units 03:57 Calcium 8.7 (8.4-10.2) mg/dL Pituitary panel 02/03/22 Range/Units 03:57 Sodium 142 (137-145) mmol/L Potassium 3.3 L (3.6-5.0) mmol/L Chloride 103.3 (98-107) mmol/L Carbon Dioxide 27 (22-30) mmol/L BUN 15 (7-17) mg/dL Creatinine 1.1 (0.6-1.2) mg/dL Glucose 73 (65-100) mg/dL Calcium 8.7 (8.4-10.2) mg/dL Adrenal panel 02/03/22 Range/Units 03:57 Sodium 142 (137-145) mmol/L Potassium 3.3 L (3.6-5.0) mmol/L Chloride 103.3 (98-107) mmol/L Carbon Dioxide 27 (22-30) mmol/L BUN 15 (7-17) mg/dL Creatinine 1.1 (0.6-1.2) mg/dL Glucose 73 (65-100) mg/dL Calcium 8.7 (8.4-10.2) mg/dL
[2022-02-03] MEDS: DIGOXIN 0.25 MG TAB PO SCH (17:12)
[2022-02-03 23:00] LABS: Calcium 8.5 mg/dL (8.4-10.2)
[2022-02-04] MEDS: METOPROLOL TARTRATE 50 MG TAB PO SCH ×3 (03:04→21:01)
[2022-02-04] MEDS: fentaNYL DRIP Premix 2,000 MCG/100 ML BAG IV SCH (05:07)
[2022-02-04 05:10] LABS: Mean Corpuscular HGB Conc 31 % (30-34); Mean Corpuscular Volume 82 fl (79-97); Platelet Count 314 K/mm3 (140-440); Red Cell Distribution Width 18.6 % (13.2-15.2)
[2022-02-04] MEDS: FUROSEMIDE 40 MG/4 ML INJ IV SCH ×2 (05:11→17:44)
[2022-02-04 05:17] LABS: Hematocrit 36.8 % (30.3-42.9); Hemoglobin 11.2 gm/dl (10.1-14.3)
[2022-02-04 05:29] LABS: Calcium 8.6 mg/dL (8.4-10.2)
[2022-02-04 06:10] LABS: ABG Base Excess 2.4 mmol/L (-2.0-3.0); ABG HCO3 28.1 mmol/L (20.0-26.0); ABG Methemoglobin 0.5 % (0.0-1.5); ABG Oxygen Saturation 93.8 % (95.0-99.0); ABG PCO2 48.6 mm Hg; ABG PH 7.38 pH Units (7.350-7.450)
[2022-02-04] MEDS: GABAPENTIN 300 MG CAP PO SCH ×3 (07:56→21:01)
[2022-02-04] MEDS ORDERED: VANCOMYCIN 1,750 MG in SODIUM CHLORIDE 0.9% 500 ML 500 ML IV SCH (08:00)
[2022-02-04] MEDS: FAMOTIDINE 10 MG TAB PO SCH ×2 (09:25→21:01)
[2022-02-04] MEDS: SENNOSIDES/DOCUSATE SODIUM 8.6/50 MG TAB FEEDTUBE SCH ×2 (09:25→21:01)
[2022-02-04] MEDS: SPIRONOLACTONE 25 MG TAB PO SCH (09:25)
--- NOTE | 2022-02-04 09:44 | Progress Note ---
<SCOTT FUENTES - Last Filed: 02/04/22 17:00> Assessment and Plan Assessment and plan: This is a 56-year-old female with known past medical history of COPD, HTN, HLD, mechanical mitral and aortic valves replacement, CHF, nonischemic cardiomyopathy s/p AICD, and chronic atrial fibrillation, noncompliant with anticoagulation admitted for AMS and acute hypoxic respiratory failure requiring ventilatory Hospital Course to Date: 02/03: Stable on the vent, sedation initiated overnight due to increase agitation. Wean sedation as tolerated, plan for possible SAT/SBT tomorrow. Blood culture positive GPC in 1 out 4 bottles, empiric IV antibiotics- Vanco initiated overnight. Patient remains afebrile, WBCs wnr, BP bordeline this am probably secondary to sedation. Continue empiric IV Abx for now, repeat Blood cultures, and will also check a procal. Periods of hypoglycemia overnight, TF at goal this am, continue BG check and hypoglycemic protocol. Patient remains on IV lasix BID, monitor renal function and electrolytes, replete as needed. 02/04: Remains on thevent on low dose sedation today,fentanyl at 1mcg. Following simple commands. This am ABG and CXR noted, IV lasix held due to low BP. Mild increase in scr this am, probably due to hypoperfusion, resume lasix and continue to monitor renal function. Plan for possible extubation today, BIPAP at night and PRN post extubation. Assessment and Plan #Acute Hypoxic Respiratory Failure #Pulmonary edema #H/o COPD -Intubated in the ED on 02/02 fir airway protection -Chest x-ray reviewed, suggestive of pulmonary edema -likely secondary to CHF exacerbation -Vent setting: PRVC-40%,6,20,450 -AM ABG noted -CCM consulted, appreciate recommendations -Continue IV lasix BID and Nebs treatment as needed -VAP bundle addressed -Aspiration precaution HOB above 30 -Daily SBT and SAT trials as tolerated -Daily ABG and CXR -Continue SPO2 monitoring for SPO2 goal above 92% #Acute on chronic heart failure with reduced ejection fraction #Dilated nonischemic Cardiomyopathy s/p AICD #Chronic Atrial fibrillation #h/o mechanical aortic and mitral valves #Noncompliant with Anticoagulation -TTE 10/2021: LVEF 30-35% -NTproBNP 3678, elevated Troponin X2 most like type 2 -Patient is Vpacing on the monitor, HR 70 -restarted aldactone, digoxin, metoprolol and lisinopril at home doses -IV lasix BID -Continue blood pressure monitor per protocol -Maintain MAP above 65 -Cardiology consulted -Continue to trend cardiac enzymes -patient was prescribed warfarin in the past, likely non-compliant given multiple subtheraputic INRs (current INR 1.17) -continue heparin gtt for now -goal INR 2.5-3.5 #Acute Metabolic Encephalopathy -CT head negative for acute abnormality -UA unremarkable -Intubated and sedated, on propofol and fentanyl gtt -Sedation initiated overnight due to increase agitation -Titrate sedation for RASS goal 0 to -1 -Plan for possible SAT/SBT tomorrow -Avoid benzodiazepine to reduce the possibility of delirium -PRN Analgesia for CPOT greater than 3 -Maintenance of sleep-wake cycle #Positive Blood Culture -Blood culture + GPC in 1 out 4 bottles, probable cross contamination -Chest x-ray reviewed, suggestive of pulmonary edema -UA is unremarkable, sputum culture pending -Patient is afebrile, WBCs wnr -Empiric IV Abx- Vanco was initiated -Will repeat Blood cultures and check procal and CRP -Continue to F/U on cultures -Daily CBC monitor -Consider ID consult if febrile or/and if leukocytosis occur #Rectus sheath hematoma #Rib fractures -seen on previous imaging on 01/31 ER visit -Most likely due to some sort of injury/fall -General surgery consulted, assistance appreciated -No plan for any surgical intervention at this time -On heparin gtt per protcol -H&H remains stable -Close monitoring of s/s of active bleeding #Hypoglycemia-improved -Low BG overnight, resolved this am -Enteral nutrition at goal this am -Continue BG check Q6hrs -Avoid Hypoglycemia -Continue Hypoglycemic protocol #Hypokalemia -Patient is on IV lasix -K repleted -Monitor and replace electrolytes as needed #Hyperlipidemia -continue statin at home dose #GI/DVT Prophylaxis -PPI- Pepcid -Heparin gtt The high probability of a clinically significant, sudden or life threatening deterioration of the [multiple] system(s) required my full and direct attention, intervention and personal management. The aggregate critical care time was [60] minutes. This time is in addition to time spent performing reported procedures but includes the following: [x] Data Review and interpretation [x] Patient assessment and monitoring of vital signs [x] Documentation [x] Medication orders and management Disposition Plan: ICU Total Time Spent with Patient (Minutes): 60 History Interval history: Patient seen and examined at the bedside. Intubated and on low dose sedation, following simple commands. BP remains marginal. IV lasix held this am due to low BP. Hospitalist Physical - Constitutional Vitals: Temp Pulse Resp BP Pulse Ox 97.3 F L 76 20 97/55 99 02/04/22 08:00 02/04/22 09:00 02/04/22 09:00 02/04/22 09:00 02/04/22 09:00 General appearance: Present: no acute distress, other (Intubated and on low dose sedation) - EENT Eyes: Present: PERRL ENT: hearing intact - Neck Neck: Present: normal ROM - Respiratory Respiratory effort: normal Respiratory: bilateral: wheezing - Cardiovascular Rhythm: regular (Vpacing at 70) Heart Sounds: Present: S1 & S2 - Extremities Extremities: no ischemia, pulses intact, pulses symmetrical Extremity abnormal: edema - Peripheral Assessment Generalized Edema Type: Non-pitting Edema Degree: 2+ Capillary Refill: < 3 seconds Skin Temperature: Warm Peripheral Pulses: within normal limits - Abdominal General gastrointestinal: soft, non-distended, normal bowel sounds - Integumentary Integumentary: Present: warm, dry - Psychiatric Psychiatric: appropriate mood/affect, cooperative, other (Intubated and on low dose sedation. Following simple commands) - Neurologic Neurologic: moves all extremities, other (Intubated and on low dose sedation. Following simple commands) - Allied Health Allied health notes reviewed: nursing, case management HEART Score - HEART Score Troponin: Troponin T 0.092 ng/mL (0.00-0.029) H 02/03/22 11:31 Results - Labs CBC & Chem 7: 02/04/22 04:32 02/04/22 04:32 Labs: Laboratory Last Values WBC 7.3 K/mm3 (4.5-11.0) 02/04/22 04:32 RBC 4.50 M/mm3 (3.65-5.03) 02/04/22 04:32 Hgb 11.2 gm/dl (10.1-14.3) 02/04/22 04:32 Hct 36.8 % (30.3-42.9) 02/04/22 04:32 MCV 82 fl (79-97) 02/04/22 04:32 MCH 25 pg (28-32) L 02/04/22 04:32 MCHC 31 % (30-34) 02/04/22 04:32 RDW 18.6 % (13.2-15.2) H 02/04/22 04:32 Plt Count 314 K/mm3 (140-440) 02/04/22 04:32 Lymph % (Auto) 13.1 % (13.4-35.0) L 02/03/22 03:57 [place] % (Auto) 10.6 % (0.0-7.3) H 02/03/22 03:57 Eos % (Auto) 3.8 % (0.0-4.3) 02/03/22 03:57 Baso % (Auto) 0.8 % (0.0-1.8) 02/03/22 03:57 Lymph # (Auto) 0.9 K/mm3 (1.2-5.4) L 02/03/22 03:57 [place] # (Auto) 0.7 K/mm3 (0.0-0.8) 02/03/22 03:57 Eos # (Auto) 0.2 K/mm3 (0.0-0.4) 02/03/22 03:57 Baso # (Auto) 0.1 K/mm3 (0.0-0.1) 02/03/22 03:57 Seg Neutrophils % 71.7 % (40.0-70.0) H 02/03/22 03:57 Seg Neutrophils # 4.7 K/mm3 (1.8-7.7) 02/03/22 03:57 PT 16.3 Sec. (12.2-14.9) H 02/02/22 07:50 INR 1.17 (0.87-1.13) H 02/02/22 07:50 APTT 33.2 Sec. (24.2-36.6) 02/02/22 07:50 Heparin Anti-Xa Level 0.51 U.I./ml (0.3-0.7) 02/03/22 22:23 ABG pH 7.380 pH Units (7.350-7.450) 02/04/22 05:35 ABG pCO2 48.6 mm Hg 02/04/22 05:35 ABG pO2 67.0 mm Hg (80.0-90.0) L 02/04/22 05:35 ABG HCO3 28.1 mmol/L (20.0-26.0) H 02/04/22 05:35 ABG O2 Saturation 93.8 % (95.0-99.0) L 02/04/22 05:35 ABG O2 Content 14.5 (0.0-44) 02/04/22 05:35 ABG Base Excess 2.4 mmol/L (-2.0-3.0) 02/04/22 05:35 ABG Hemoglobin 11.2 gm/dl (12.0-16.0) L 02/04/22 05:35 ABG Carboxyhemoglobin 1.8 % (0.0-5.0) 02/04/22 05:35 ABG Methemoglobin 0.5 % (0.0-1.5) 02/04/22 05:35 Oxyhemoglobin 91.7 % (95.0-99.0) L 02/04/22 05:35 FiO2 40 % 02/04/22 05:35 Sodium 140 mmol/L (137-145) 02/04/22 04:32 Potassium 4.0 mmol/L (3.6-5.0) 02/04/22 04:32 Chloride 105.0 mmol/L (98-107) 02/04/22 04:32 Carbon Dioxide 25 mmol/L (22-30) 02/04/22 04:32 Anion Gap 14 mmol/L 02/04/22 04:32 BUN 19 mg/dL (7-17) H 02/04/22 04:32 Creatinine 1.3 mg/dL (0.6-1.2) H 02/04/22 04:32 Estimated GFR 51 ml/min 02/04/22 04:32 BUN/Creatinine Ratio 15 % 02/04/22 04:32 Glucose 90 mg/dL (65-100) 02/04/22 04:32 POC Glucose 86 mg/dL (70-105) 02/03/22 23:44 Lactic Acid 1.80 mmol/L (0.7-2.0) 02/02/22 07:50 Calcium 8.6 mg/dL (8.4-10.2) 02/04/22 04:32 Phosphorus 2.60 mg/dL (2.5-4.5) 02/04/22 04:32 Magnesium 1.90 mg/dL (1.7-2.3) 02/04/22 04:32 Total Bilirubin 2.30 mg/dL (0.1-1.2) H 02/01/22 21:59 AST 18 units/L (5-40) 02/01/22 21:59 ALT 6 units/L (7-56) L 02/01/22 21:59 Alkaline Phosphatase 97 units/L (35-129) 02/01/22 21:59 Total Creatine Kinase 59 units/L (30-135) 02/02/22 07:50 Troponin T 0.092 ng/mL (0.00-0.029) H 02/03/22 11:31 C-Reactive Protein 6.20 mg/dL (0.00-1.30) H 02/03/22 11:31 NT-Pro-B Natriuret Pep 3678 pg/mL (0-900) H 02/02/22 07:50 Total Protein 8.3 g/dL (6.3-8.2) H 02/01/22 21:59 Albumin 3.5 g/dL (3.9-5) L 02/01/22 21:59 Albumin/Globulin Ratio 0.7 % 02/01/22 21:59 Triglycerides 75 mg/dL (2-149) 02/02/22 07:50 Cholesterol 117 mg/dL (50-199) 02/02/22 07:50 LDL Cholesterol Direct 62 mg/dL (50-130) 02/02/22 07:50 HDL Cholesterol 38 mg/dL (40-59) L 02/02/22 07:50 Cholesterol/HDL Ratio 3.07 % 02/02/22 07:50 TSH 1.320 mlU/mL (0.270-4.200) 02/02/22 07:50 Urine Color Yellow (Yellow) 02/02/22 11:17 Urine Turbidity Clear (Clear) 02/02/22 11:17 Urine pH 7.0 (5.0-7.0) 02/02/22 11:17 Ur Specific [place] 1.005 (1.003-1.030) 02/02/22 11:17 Urine Protein 30 mg/dl mg/dL (Negative) 02/02/22 11:17 Urine Glucose (UA) Neg mg/dL (Negative) 02/02/22 11:17 Urine Ketones Neg mg/dL (Negative) 02/02/22 11:17 Urine Blood Sm (Negative) 02/02/22 11:17 Urine Nitrite Neg (Negative) 02/02/22 11:17 Urine Bilirubin Neg (Negative) 02/02/22 11:17 Urine Urobilinogen < 2.0 mg/dL (<2.0) 02/02/22 11:17 Ur Leukocyte Esterase Neg (Negative) 02/02/22 11:17 Urine WBC (Auto) 1.0 /HPF (0.0-6.0) 02/02/22 11:17 Urine RBC (Auto) 1.0 /HPF (0.0-6.0) 02/02/22 11:17 U Epithel Cells (Auto) 1.0 /HPF (0-13.0) 02/02/22 11:17 Urine Bacteria (Auto) 1+ /HPF (Negative) 02/02/22 11:17 Urine Mucus Few /HPF 02/02/22 11:17 Salicylates < 0.3 mg/dL (2.8-20.0) L 02/02/22 07:50 Acetaminophen 5.0 ug/mL (10.0-30.0) L 02/02/22 08:07 Plasma/Serum Alcohol < 0.01 % (0-0.07) 02/02/22 07:50 Microbiology: Microbiology 02/03/22 11:31 Peripheral/Venous Blood Culture - Preliminary Culture in Progress 02/03/22 11:51 Peripheral/Venous Blood Culture - Preliminary Culture in Progress 02/02/22 10:25 Tracheal Aspirate Sputum Culture - Preliminary 02/02/22 08:07 Peripheral/Venous Blood Culture - Preliminary NO GROWTH AFTER 24 HOURS 02/02/22 08:07 Peripheral/Venous Blood Culture - Preliminary [place]/IV: Voiding Method Indwelling Catheter Active Medications - Current Medications Current Medications: Generic Name Dose Route Start Last Admin Trade Name Freq PRN Reason Stop Dose Admin Acetaminophen 650 mg 02/02/22 09:46 Acetaminophen 325 Mg Tab PO Q6H PRN Pain MILD(1-3)/Fever >100.5/VACA Lipase/Protease/Amylase 1 each 02/02/22 11:15 Lipase 10,500/Protease 25,000/Amylase 43,750 (Units) Dr Cap FEEDTUBE PRN PRN For Clogged Feeding Tube Atorvastatin Calcium 40 mg 02/02/22 22:00 02/03/22 21:10 Atorvastatin 40 Mg Tab PO 40 mg QHS HERACLIO Administration Digoxin 0.25 mg 02/02/22 17:00 02/03/22 17:12 Digoxin 0.25 Mg Tab PO Not Given DAILY@1700 HERACLIO Famotidine 10 mg 02/03/22 11:00 02/03/22 21:10 Famotidine 10 Mg Tab PO 10 mg BID HERACLIO Administration Fentanyl 50 mcg 02/02/22 09:57 Fentanyl 100 Mcg/2 Ml Inj IV Q10MIN PRN ANALGESIA Furosemide 40 mg 02/03/22 06:00 02/04/22 05:11 Furosemide 40 Mg/4 Ml Inj IV Not Given 0600,1800 HERACLIO Gabapentin 300 mg 02/02/22 14:00 02/04/22 07:56 Gabapentin 300 Mg Cap PO 300 mg TID HERACLIO Administration Heparin Sodium (Porcine) 4,500 unit 02/02/22 09:40 Heparin 10,000 Units/10 Ml Vial 40 unit/kg (4500 unit) IV Q6H PRN Anti-Xa Assay < 0.1 units/ml Hydrophilic Ointment 1 applic 02/02/22 09:09 Lip Therapy Vaseline TP Q2HR PRN Dry Lips Propofol 1,000 mg in 100 mls @ 3.402 mls/hr 02/02/22 10:00 02/03/22 13:11 Diprivan 10 Mg/Ml IV 0 mcg/kg/min TITR HERACLIO 0 mls/hr Titration Protocol 5 MCG/KG/MIN Heparin Sodium/Sodium Chloride 25,000 unit in 500 mls @ 30 mls/hr 02/02/22 10:00 02/03/22 23:32 Heparin/ 0.45% Nacl-25,000 Unit/500 Ml IV 1,500 units/hr TITR HERACLIO 30 mls/hr Titration Protocol 1,500 UNITS/HR Fentanyl Citrate 2,000 mcg in 100 mls @ 5.67 mls/hr 02/02/22 10:00 02/04/22 07:56 Fentanyl Drip Premix IV 1 mcg/kg/hr TITR HERACLIO 5.67 mls/hr Titration Protocol 1 MCG/KG/HR Vancomycin HCl 1,750 mg/ 535 mls @ 333.333 mls/hr 02/04/22 08:00 02/04/22 07:56 Sodium Chloride IV 333.333 mls/hr Q24H HERACLIO Administration Lisinopril 10 mg 02/02/22 13:00 02/03/22 10:29 Lisinopril 10 Mg Tab PO Not Given QDAY HERACLIO Metoprolol Tartrate 50 mg 02/02/22 12:00 02/04/22 03:04 Metoprolol Tartrate 50 Mg Tab PO Not Given Q8H HERACLIO Multi-Ingred Cream/Lotion/Oil/Oint 1 applic 02/02/22 09:09 Mineral Oil/Petrolatum, White Ophth Oint 3.5 Gm OU Q4HR PRN Dry Eye(s) Senna/Docusate Sodium 1 tab 02/02/22 10:00 02/03/22 21:10 Sennosides/Docusate Sodium 8.6/50 Mg Tab FEEDTUBE 1 tab BID HERACLIO Administration Simple Syrup 15 ml 02/02/22 11:15 02/02/22 23:27 Simple Syrup 15 Ml FEEDTUBE 15 ml PRN PRN Administration Hypoglycemia Simple Syrup 30 ml 02/02/22 11:15 Simple Syrup 15 Ml FEEDTUBE PRN PRN Hypoglycemia Sodium Bicarbonate 325 mg 02/02/22 11:15 Sodium Bicarbonate 325 Mg Tab FEEDTUBE PRN PRN For Clogged Feeding Tube Sodium Chloride 10 ml 02/02/22 10:00 02/03/22 21:10 Sodium Chloride 0.9% 10 Ml Flush Syringe IV 10 ml BID HERACLIO Administration Sodium Chloride 10 ml 02/02/22 09:46 Sodium Chloride 0.9% 10 Ml Flush Syringe IV PRN PRN LINE FLUSH Spironolactone 25 mg 02/02/22 13:00 02/03/22 10:28 Spironolactone 25 Mg Tab PO Not Given QDAY HERACLIO Nutrition/Malnutrition Assess - Dietary Evaluation Nutrition/Malnutrition Findings: Nutrition Notes Start: 02/02/22 12:03 Freq: Status: Active Protocol: Document 02/03/22 11:18 CARLOS (Rec: 02/03/22 11:30 CARLOS [id number]) Nutrition Notes Initial or Follow up Reassessment Current Diagnosis COPD,Heart Failure,Respiratory Failure,Hyperlipidemia Other Pertinent Diagnosis Pulmonary edema, Rectus sheath hematoma, Rib fx, chronic afib Current Diet TF - Vital AF 1.2 at 40ml/hr Labs/Tests K 3.3 Pertinent Medications Lasix, Heparin gtt, 20mEq KCl q8h, Propofol at 10.206ml/hr ( provides 269 kcal), Senokot Height 5 ft 4 in Weight 113.398 kg [place] Body Weight (kg) 54.54 BMI 42.9 Weight Status Morbidly Obese Subjective/Other Information Pt remains on vent support. Pt tolerating TF at goal rate. RN informed of intent to change TF formula to provide additional protein for this pt . Percent of energy/protein needs met: 86% energy 53% pro Burn Absent Trauma Present #2 Nutrition Diagnosis Inadequate protein intake Etiology EN prescription As Evidenced by Signs and Symptoms current TF formula and rate provides <75% of estimated protein needs #1 Nutrition Diagnosis Inadequate oral intake Diagnosis Progress(for reassessment Continues documentation) Is patient on ventilator? Yes Is Patient Ambulatory and/or Out of Bed No REE-([place]-St. Jeor-confined to bed) 2048.892 Calculation Used for Recommendations 65-70% REE Additional Notes Energy needs: 8097-1446 kcal/ day Pro needs up to 2.5g/kg IBW: up to 136g/day Fluid needs 1ml/kcal Nutrition Intervention Nutrition Support: Change TF formula to Vital High Protein at 60ml/hr with 50ml water flush q4h. Kcal 1,440 Protein (gm) 126 Carbohydrates (gm) 161 Fat (gm) 33 Fluid (mL) 1,204 Fiber (gm) 0 Goal #1 TF tolerance Goal #2 TF to meet 65-70% REE and at least 75% pro needs Anticipated Discharge Needs: Continue EN support if necessary Follow-Up By: 02/05/22 Additional Comments F/U: TF formula change/ tolerance, vent status, propofol <CORA LANCASTER - Last Filed: 02/05/22 07:28> Assessment and Plan Assessment and plan: I saw and evaluated the patient. I agree with the findings and the plan of care as documented in the Nurse Practitioner's~note, with the following corrections and additions. Hospitalist Physical - Constitutional Vitals: Temp Pulse Resp BP Pulse Ox 98.2 F 71 17 140/50 100 02/05/22 04:00 02/05/22 07:01 02/05/22 07:01 02/05/22 07:01 02/05/22 07:01 HEART Score - HEART Score Troponin: Troponin T 0.092 ng/mL (0.00-0.029) H 02/03/22 11:31 Results - Labs CBC & Chem 7: 02/05/22 05:09 02/05/22 05:09 Labs: Laboratory Last Values WBC 9.8 K/mm3 (4.5-11.0) 02/05/22 05:09 RBC 4.79 M/mm3 (3.65-5.03) 02/05/22 05:09 Hgb 11.9 gm/dl (10.1-14.3) 02/05/22 05:09 Hct 39.9 % (30.3-42.9) 02/05/22 05:09 MCV 83 fl (79-97) 02/05/22 05:09 MCH 25 pg (28-32) L 02/05/22 05:09 MCHC 30 % (30-34) 02/05/22 05:09 RDW 18.8 % (13.2-15.2) H 02/05/22 05:09 Plt Count 313 K/mm3 (140-440) 02/05/22 05:09 Lymph % (Auto) 13.1 % (13.4-35.0) L 02/03/22 03:57 [place] % (Auto) 10.6 % (0.0-7.3) H 02/03/22 03:57 Eos % (Auto) 3.8 % (0.0-4.3) 02/03/22 03:57 Baso % (Auto) 0.8 % (0.0-1.8) 02/03/22 03:57 Lymph # (Auto) 0.9 K/mm3 (1.2-5.4) L 02/03/22 03:57 [place] # (Auto) 0.7 K/mm3 (0.0-0.8) 02/03/22 03:57 Eos # (Auto) 0.2 K/mm3 (0.0-0.4) 02/03/22 03:57 Baso # (Auto) 0.1 K/mm3 (0.0-0.1) 02/03/22 03:57 Seg Neutrophils % 71.7 % (40.0-70.0) H 02/03/22 03:57 Seg Neutrophils # 4.7 K/mm3 (1.8-7.7) 02/03/22 03:57 PT 16.3 Sec. (12.2-14.9) H 02/02/22 07:50 INR 1.17 (0.87-1.13) H 02/02/22 07:50 APTT 33.2 Sec. (24.2-36.6) 02/02/22 07:50 Heparin Anti-Xa Level 1.40 U.I./ml (0.3-0.7) H 02/05/22 05:09 ABG pH 7.380 pH Units (7.350-7.450) 02/04/22 05:35 ABG pCO2 48.6 mm Hg 02/04/22 05:35 ABG pO2 67.0 mm Hg (80.0-90.0) L 02/04/22 05:35 ABG HCO3 28.1 mmol/L (20.0-26.0) H 02/04/22 05:35 ABG O2 Saturation 93.8 % (95.0-99.0) L 02/04/22 05:35 ABG O2 Content 14.5 (0.0-44) 02/04/22 05:35 ABG Base Excess 2.4 mmol/L (-2.0-3.0) 02/04/22 05:35 ABG Hemoglobin 11.2 gm/dl (12.0-16.0) L 02/04/22 05:35 ABG Carboxyhemoglobin 1.8 % (0.0-5.0) 02/04/22 05:35 ABG Methemoglobin 0.5 % (0.0-1.5) 02/04/22 05:35 Oxyhemoglobin 91.7 % (95.0-99.0) L 02/04/22 05:35 FiO2 40 % 02/04/22 05:35 Sodium 141 mmol/L (137-145) 02/05/22 05:09 Potassium 4.6 mmol/L (3.6-5.0) 02/05/22 05:09 Chloride 102.6 mmol/L (98-107) 02/05/22 05:09 Carbon Dioxide 22 mmol/L (22-30) 02/05/22 05:09 Anion Gap 21 mmol/L 02/05/22 05:09 BUN 23 mg/dL (7-17) H 02/05/22 05:09 Creatinine 1.4 mg/dL (0.6-1.2) H 02/05/22 05:09 Estimated GFR 47 ml/min 02/05/22 05:09 BUN/Creatinine Ratio 16 % 02/05/22 05:09 Glucose 97 mg/dL (65-100) 02/05/22 05:09 POC Glucose 157 mg/dL (70-105) H 02/04/22 17:37 Lactic Acid 1.80 mmol/L (0.7-2.0) 02/02/22 07:50 Calcium 9.4 mg/dL (8.4-10.2) 02/05/22 05:09 Phosphorus 3.90 mg/dL (2.5-4.5) D 02/05/22 05:09 Magnesium 2.10 mg/dL (1.7-2.3) 02/05/22 05:09 Total Bilirubin 2.30 mg/dL (0.1-1.2) H 02/01/22 21:59 AST 18 units/L (5-40) 02/01/22 21:59 ALT 6 units/L (7-56) L 02/01/22 21:59 Alkaline Phosphatase 97 units/L (35-129) 02/01/22 21:59 Total Creatine Kinase 59 units/L (30-135) 02/02/22 07:50 Troponin T 0.092 ng/mL (0.00-0.029) H 02/03/22 11:31 C-Reactive Protein 6.20 mg/dL (0.00-1.30) H 02/03/22 11:31 NT-Pro-B Natriuret Pep 3678 pg/mL (0-900) H 02/02/22 07:50 Total Protein 8.3 g/dL (6.3-8.2) H 02/01/22 21:59 Albumin 3.5 g/dL (3.9-5) L 02/01/22 21:59 Albumin/Globulin Ratio 0.7 % 02/01/22 21:59 Triglycerides 75 mg/dL (2-149) 02/02/22 07:50 Cholesterol 117 mg/dL (50-199) 02/02/22 07:50 LDL Cholesterol Direct 62 mg/dL (50-130) 02/02/22 07:50 HDL Cholesterol 38 mg/dL (40-59) L 02/02/22 07:50 Cholesterol/HDL Ratio 3.07 % 02/02/22 07:50 TSH 1.320 mlU/mL (0.270-4.200) 02/02/22 07:50 Urine Color Yellow (Yellow) 02/02/22 11:17 Urine Turbidity Clear (Clear) 02/02/22 11:17 Urine pH 7.0 (5.0-7.0) 02/02/22 11:17 Ur Specific [place] 1.005 (1.003-1.030) 02/02/22 11:17 Urine Protein 30 mg/dl mg/dL (Negative) 02/02/22 11:17 Urine Glucose (UA) Neg mg/dL (Negative) 02/02/22 11:17 Urine Ketones Neg mg/dL (Negative) 02/02/22 11:17 Urine Blood Sm (Negative) 02/02/22 11:17 Urine Nitrite Neg (Negative) 02/02/22 11:17 Urine Bilirubin Neg (Negative) 02/02/22 11:17 Urine Urobilinogen < 2.0 mg/dL (<2.0) 02/02/22 11:17 Ur Leukocyte Esterase Neg (Negative) 02/02/22 11:17 Urine WBC (Auto) 1.0 /HPF (0.0-6.0) 02/02/22 11:17 Urine RBC (Auto) 1.0 /HPF (0.0-6.0) 02/02/22 11:17 U Epithel Cells (Auto) 1.0 /HPF (0-13.0) 02/02/22 11:17 Urine Bacteria (Auto) 1+ /HPF (Negative) 02/02/22 11:17 Urine Mucus Few /HPF 02/02/22 11:17 Salicylates < 0.3 mg/dL (2.8-20.0) L 02/02/22 07:50 Acetaminophen 5.0 ug/mL (10.0-30.0) L 02/02/22 08:07 Plasma/Serum Alcohol < 0.01 % (0-0.07) 02/02/22 07:50 Microbiology: Microbiology 02/03/22 11:31 Peripheral/Venous Blood Culture - Preliminary NO GROWTH AFTER 24 HOURS 02/03/22 11:51 Peripheral/Venous Blood Culture - Preliminary NO GROWTH AFTER 24 HOURS 02/02/22 08:07 Peripheral/Venous Blood Culture - Preliminary Coag Negative Staphylococcus 02/02/22 10:25 Tracheal Aspirate Sputum Culture - Final 02/02/22 08:07 Peripheral/Venous Blood Culture - Preliminary NO GROWTH AFTER 48 HOURS [place]/IV: Voiding Method Indwelling Catheter Active Medications - Current Medications Current Medications: Generic Name Dose Route Start Last Admin Trade Name Freq PRN Reason Stop Dose Admin Acetaminophen 650 mg 02/02/22 09:46 02/05/22 06:41 Acetaminophen 325 Mg Tab PO 650 mg Q6H PRN Administration Pain MILD(1-3)/Fever >100.5/VACA Lipase/Protease/Amylase 1 each 02/02/22 11:15 Lipase 10,500/Protease 25,000/Amylase 43,750 (Units) Dr Colon FEEDTUBE PRN PRN For Clogged Feeding Tube Atorvastatin Calcium 40 mg 02/02/22 22:00 02/04/22 21:01 Atorvastatin 40 Mg Tab PO Not Given QHS HERACLIO Digoxin 0.25 mg 02/02/22 17:00 02/04/22 17:44 Digoxin 0.25 Mg Tab PO 0.25 mg DAILY@1700 HERACLIO Administration Famotidine 10 mg 02/03/22 11:00 02/04/22 21:01 Famotidine 10 Mg Tab PO Not Given BID HERACLIO Fentanyl 50 mcg 02/02/22 09:57 Fentanyl 100 Mcg/2 Ml Inj IV Q10MIN PRN ANALGESIA Furosemide 40 mg 02/03/22 06:00 02/05/22 05:41 Furosemide 40 Mg/4 Ml Inj IV 40 mg 0600,1800 HERACLIO Administration Gabapentin 300 mg 02/02/22 14:00 02/04/22 21:01 Gabapentin 300 Mg Cap PO Not Given TID HERACLIO Heparin Sodium (Porcine) 4,500 unit 02/02/22 09:40 02/04/22 22:00 Heparin 10,000 Units/10 Ml Vial 40 unit/kg (4500 unit) 4,500 unit IV Administration Q6H PRN Anti-Xa Assay < 0.1 units/ml Hydrophilic Ointment 1 applic 02/02/22 09:09 Lip Therapy Vaseline TP Q2HR PRN Dry Lips Propofol 1,000 mg in 100 mls @ 3.402 mls/hr 02/02/22 10:00 02/03/22 13:11 Diprivan 10 Mg/Ml IV 0 mcg/kg/min TITR HERACLIO 0 mls/hr Titration Protocol 5 MCG/KG/MIN Heparin Sodium/Sodium Chloride 25,000 unit in 500 mls @ 30 mls/hr 02/02/22 10:00 02/05/22 05:52 Heparin/ 0.45% Nacl-25,000 Unit/500 Ml IV 0 units/hr TITR HERACLIO 0 mls/hr Titration Protocol 1,500 UNITS/HR Fentanyl Citrate 2,000 mcg in 100 mls @ 5.67 mls/hr 02/02/22 10:00 02/04/22 15:32 Fentanyl Drip Premix IV 0 mcg/kg/hr TITR HERACLIO 0 mls/hr Titration Protocol 1 MCG/KG/HR Lisinopril 10 mg 02/02/22 13:00 02/04/22 11:47 Lisinopril 10 Mg Tab PO Not Given QDAY HERACLIO Metoprolol Tartrate 50 mg 02/02/22 12:00 02/05/22 03:21 Metoprolol Tartrate 50 Mg Tab PO Not Given Q8H HERACLIO Multi-Ingred Cream/Lotion/Oil/Oint 1 applic 02/02/22 09:09 Mineral Oil/Petrolatum, White Ophth Oint 3.5 Gm OU Q4HR PRN Dry Eye(s) Senna/Docusate Sodium 1 tab 02/02/22 10:00 02/04/22 21:01 Sennosides/Docusate Sodium 8.6/50 Mg Tab FEEDTUBE Not Given BID HERACLIO Simple Syrup 15 ml 02/02/22 11:15 02/02/22 23:27 Simple Syrup 15 Ml FEEDTUBE 15 ml PRN PRN Administration Hypoglycemia Simple Syrup 30 ml 02/02/22 11:15 Simple Syrup 15 Ml FEEDTUBE PRN PRN Hypoglycemia Sodium Bicarbonate 325 mg 02/02/22 11:15 Sodium Bicarbonate 325 Mg Tab FEEDTUBE PRN PRN For Clogged Feeding Tube Sodium Chloride 10 ml 02/02/22 10:00 02/04/22 21:01 Sodium Chloride 0.9% 10 Ml Flush Syringe IV 10 ml BID HERACLIO Administration Sodium Chloride 10 ml 02/02/22 09:46 Sodium Chloride 0.9% 10 Ml Flush Syringe IV PRN PRN LINE FLUSH Spironolactone 25 mg 02/02/22 13:00 02/04/22 09:25 Spironolactone 25 Mg Tab PO 25 mg QDAY HERACLIO Administration Nutrition/Malnutrition Assess - Dietary Evaluation Nutrition/Malnutrition Findings: Nutrition Notes Start: 02/02/22 12:03 Freq: Status: Active Protocol: Document 02/03/22 11:18 CARLOS (Rec: 02/03/22 11:30 [facility] [id number]) Nutrition Notes Initial or Follow up Reassessment Current Diagnosis COPD,Heart Failure,Respiratory Failure,Hyperlipidemia Other Pertinent Diagnosis Pulmonary edema, Rectus sheath hematoma, Rib fx, chronic afib Current Diet TF - Vital AF 1.2 at 40ml/hr Labs/Tests K 3.3 Pertinent Medications Lasix, Heparin gtt, 20mEq KCl q8h, Propofol at 10.206ml/hr ( provides 269 kcal), Senokot Height 5 ft 4 in Weight 113.398 kg [place] Body Weight (kg) 54.54 BMI 42.9 Weight Status Morbidly Obese Subjective/Other Information Pt remains on vent support. Pt tolerating TF at goal rate. RN informed of intent to change TF formula to provide additional protein for this pt . Percent of energy/protein needs met: 86% energy 53% pro Burn Absent Trauma Present #2 Nutrition Diagnosis Inadequate protein intake Etiology EN prescription As Evidenced by Signs and Symptoms current TF formula and rate provides <75% of estimated protein needs #1 Nutrition Diagnosis Inadequate oral intake Diagnosis Progress(for reassessment Continues documentation) Is patient on ventilator? Yes Is Patient Ambulatory and/or Out of Bed No REE-([facility]-confined to bed) 8.892 Calculation Used for Recommendations 65-70% REE Additional Notes Energy needs: 2875-2064 kcal/ day Pro needs up to 2.5g/kg IBW: up to 136g/day Fluid needs 1ml/kcal Nutrition Intervention Nutrition Support: Change TF formula to Vital High Protein at 60ml/hr with 50ml water flush q4h. Kcal 1,440 Protein (gm) 126 Carbohydrates (gm) 161 Fat (gm) 33 Fluid (mL) 1,204 Fiber (gm) 0 Goal #1 TF tolerance Goal #2 TF to meet 65-70% REE and at least 75% pro needs Anticipated Discharge Needs: Continue EN support if necessary Follow-Up By: 02/05/22 Additional Comments F/U: TF formula change/ tolerance, vent status, propofol
[2022-02-04] MEDS ORDERED: EPINEPHrine RACEMIC 2.25% 0.5ML NEBU IH ONE (09:47)
[2022-02-04] MEDS ORDERED: FUROSEMIDE 40 MG/4 ML INJ IV SCH (10:00)
[2022-02-04] MEDS ORDERED: EPINEPHrine RACEMIC 2.25% 0.5ML NEBU IH SCH ×2 (10:00)
[2022-02-04] MEDS ORDERED: methylPREDNISolone Sod Succinate 125 MG/2 ML INJ ONE (10:12)
[2022-02-04] MEDS ORDERED: methylPREDNISolone Sod Succinate 125 MG/2 ML INJ IV SCH (10:30)
[2022-02-04] MEDS ORDERED: methylPREDNISolone Sod Succinate 40 MG/1 ML INJ IV SCH ×2 (11:00)
--- NOTE | 2022-02-04 11:00 | Progress Note ---
Assessment and Plan 56 y/o female admitted with altered mental state and acute respiratory failure. 02/04/22: Attempt extubation today. Restart lasix and give IV dose prior to extubation. Bipap order for QHS and PRN given her degree of heart failure, she could have central ELVIRA. Continue anticoagulation. 1. Wean sedation as tolerated 2. SBT and awakening trials daily 3. Volume removal 4. Heparin for mechanical valve as INR is subtherapeutic 5. BP control CCT 31 minutes. Subjective Date of service: 02/04/22 Interval history: No acute events. Awake and alert on Fent 1. Minimal vent settings. PaO2 lower this am but CXR shows worsening edema. lasix therapy has been held secondary to blood pressure. Objective Vital Signs - 12hr 02/03/22 02/03/22 02/03/22 23:00 23:05 23:06 Temperature Pulse Rate 70 Pulse Rate [ Anterior Bilateral Throughout] Pulse Rate [ 70 From Monitor] Pulse Rate [ None] Pulse Rate [ 71 Radial] Respiratory 20 20 Rate Respiratory Rate [Anterior Bilateral Throughout] Blood Pressure 95/46 O2 Sat by Pulse 96 95 Oximetry 02/04/22 02/04/22 02/04/22 00:00 00:25 01:00 Temperature 97.9 F Pulse Rate 70 Pulse Rate [ Anterior Bilateral Throughout] Pulse Rate [ From Monitor] Pulse Rate [ None] Pulse Rate [ 70 70 Radial] Respiratory 20 0 L 20 Rate Respiratory Rate [Anterior Bilateral Throughout] Blood Pressure 90/49 90/49 92/53 O2 Sat by Pulse 94 95 95 Oximetry 02/04/22 02/04/22 02/04/22 02:00 03:00 03:04 Temperature Pulse Rate 71 Pulse Rate [ Anterior Bilateral Throughout] Pulse Rate [ From Monitor] Pulse Rate [ None] Pulse Rate [ Radial] Respiratory 20 Rate Respiratory Rate [Anterior Bilateral Throughout] Blood Pressure 92/50 102/49 102/49 O2 Sat by Pulse 96 91 Oximetry 02/04/22 02/04/22 02/04/22 03:05 04:00 04:15 Temperature Pulse Rate 70 70 Pulse Rate [ Anterior Bilateral Throughout] Pulse Rate [ 70 From Monitor] Pulse Rate [ 70 None] Pulse Rate [ Radial] Respiratory 20 0 L Rate Respiratory Rate [Anterior Bilateral Throughout] Blood Pressure 98/47 98/47 O2 Sat by Pulse 95 91 96 Oximetry 02/04/22 02/04/22 02/04/22 05:00 06:00 06:39 Temperature 97.8 F Pulse Rate Pulse Rate [ Anterior Bilateral Throughout] Pulse Rate [ From Monitor] Pulse Rate [ None] Pulse Rate [ 70 Radial] Respiratory 20 20 Rate Respiratory Rate [Anterior Bilateral Throughout] Blood Pressure 106/51 115/49 O2 Sat by Pulse 93 96 Oximetry 02/04/22 02/04/22 02/04/22 07:00 08:00 09:00 Temperature 97.3 F L Pulse Rate 75 Pulse Rate [ Anterior Bilateral Throughout] Pulse Rate [ 70 From Monitor] Pulse Rate [ None] Pulse Rate [ 70 70 76 Radial] Respiratory 20 20 20 Rate Respiratory Rate [Anterior Bilateral Throughout] Blood Pressure 132/78 102/51 97/55 O2 Sat by Pulse 94 97 99 Oximetry 02/04/22 02/04/22 02/04/22 09:25 10:00 10:14 Temperature Pulse Rate 76 71 Pulse Rate [ 78 Anterior Bilateral Throughout] Pulse Rate [ From Monitor] Pulse Rate [ None] Pulse Rate [ 70 Radial] Respiratory 23 Rate Respiratory 16 Rate [Anterior Bilateral Throughout] Blood Pressure 134/62 O2 Sat by Pulse 100 Oximetry CBC and BMP: 02/04/22 04:32 02/04/22 04:32 ABG, PT/INR, D-dimer: ABG ABG pH 7.380 pH Units (7.350-7.450) 02/04/22 05:35 ABG pCO2 48.6 mm Hg 02/04/22 05:35 ABG pO2 67.0 mm Hg (80.0-90.0) L 02/04/22 05:35 ABG O2 Saturation 93.8 % (95.0-99.0) L 02/04/22 05:35 PT/INR, D-dimer PT 16.3 Sec. (12.2-14.9) H 02/02/22 07:50 INR 1.17 (0.87-1.13) H 02/02/22 07:50 Abnormal lab findings: Abnormal Labs 02/01/22 02/01/22 02/02/22 21:59 21:59 07:50 MCH 25 L RDW 19.0 H Lymph % (Auto) Schu[place] % (Auto) 7.4 H Lymph # (Auto) 0.9 L Seg Neutrophils % 76.0 H PT 16.3 H INR 1.17 H Heparin Anti-Xa Level ABG pO2 ABG HCO3 ABG O2 Saturation ABG Hemoglobin Oxyhemoglobin Potassium 3.0 L BUN Creatinine POC Glucose Total Bilirubin 2.30 H ALT 6 L Troponin T C-Reactive Protein NT-Pro-B Natriuret Pep Total Protein 8.3 H Albumin 3.5 L HDL Cholesterol Salicylates Acetaminophen 02/02/22 02/02/22 02/02/22 07:50 07:50 08:07 MCH RDW Lymph % (Auto) Schuyler % (Auto) Lymph # (Auto) Seg Neutrophils % PT INR Heparin Anti-Xa Level ABG pO2 ABG HCO3 ABG O2 Saturation ABG Hemoglobin Oxyhemoglobin Potassium BUN Creatinine POC Glucose Total Bilirubin ALT Troponin T 0.077 H C-Reactive Protein NT-Pro-B Natriuret Pep 3678 H Total Protein Albumin HDL Cholesterol 38 L Salicylates < 0.3 L Acetaminophen 5.0 L 02/02/22 02/02/22 02/02/22 10:30 12:42 18:37 MCH RDW Lymph % (Auto) Schuyler % (Auto) Lymph # (Auto) Seg Neutrophils % PT INR Heparin Anti-Xa Level 0.10 L ABG pO2 153.8 H ABG HCO3 26.5 H ABG O2 Saturation ABG Hemoglobin 10.9 L Oxyhemoglobin Potassium BUN Creatinine POC Glucose 69 L Total Bilirubin ALT Troponin T C-Reactive Protein NT-Pro-B Natriuret Pep Total Protein Albumin HDL Cholesterol Salicylates Acetaminophen 02/02/22 02/03/22 02/03/22 23:24 03:57 03:57 MCH 25 L RDW 18.7 H Lymph % (Auto) 13.1 L Schuyler % (Auto) 10.6 H Lymph # (Auto) 0.9 L Seg Neutrophils % 71.7 H PT INR Heparin Anti-Xa Level ABG pO2 ABG HCO3 ABG O2 Saturation ABG Hemoglobin Oxyhemoglobin Potassium 3.3 L BUN Creatinine POC Glucose 60 L Total Bilirubin ALT Troponin T 0.094 H C-Reactive Protein NT-Pro-B Natriuret Pep Total Protein Albumin HDL Cholesterol Salicylates Acetaminophen 02/03/22 02/03/22 02/03/22 04:20 11:31 17:25 MCH RDW Lymph % (Auto) [place] % (Auto) Lymph # (Auto) Seg Neutrophils % PT INR Heparin Anti-Xa Level ABG pO2 ABG HCO3 26.6 H ABG O2 Saturation ABG Hemoglobin 11.3 L Oxyhemoglobin 94.8 L Potassium BUN Creatinine POC Glucose 113 H Total Bilirubin ALT Troponin T 0.092 H C-Reactive Protein 6.20 H NT-Pro-B Natriuret Pep Total Protein Albumin HDL Cholesterol Salicylates Acetaminophen 02/04/22 02/04/22 02/04/22 04:32 04:32 05:35 MCH 25 L RDW 18.6 H Lymph % (Auto) [place] % (Auto) Lymph # (Auto) Seg Neutrophils % PT INR Heparin Anti-Xa Level ABG pO2 67.0 L ABG HCO3 28.1 H ABG O2 Saturation 93.8 L ABG Hemoglobin 11.2 L Oxyhemoglobin 91.7 L Potassium BUN 19 H Creatinine 1.3 H POC Glucose Total Bilirubin ALT Troponin T C-Reactive Protein NT-Pro-B Natriuret Pep Total Protein Albumin HDL Cholesterol Salicylates Acetaminophen
[2022-02-04] MEDS: LISINOPRIL 10 MG TAB PO SCH (11:47)
--- NOTE | 2022-02-04 11:51 | Progress Note ---
Assessment and Plan - Patient Problems (1) Respiratory failure Current Visit: Yes Status: Acute Plan to address problem: Patient presented with altered mental status and acute respiratory failure, currently on the vent. Continue supportive management in ICU care. (2) Dilated cardiomyopathy Current Visit: Yes Status: Acute Plan to address problem: Will resume guideline directed medical therapy as tolerated for chronic systolic left ventricular dysfunction. (3) H/O mechanical aortic valve replacement Current Visit: Yes Status: Acute Plan to address problem: Patient has mechanical mitral and aortic valve replacements, chronically noncompliant with warfarin. We will resume anticoagulation therapy and aim to restore therapeutic INR levels prior to hospital discharge. Resumption of anticoagulation should be judicious, in the setting of recent rib fractures and rectus sheath hematoma. Subjective Date of service: 02/04/22 Principal diagnosis: Altered mental status, respiratory failure Interval history: Patient is sedated, on the vent. On front desk monitor, there is a V paced rhythm at 70. Objective Vital Signs Temp Pulse Pulse Pulse Pulse Pulse Resp 02/04/22 11:47 70 02/04/22 11:43 97 F L 02/04/22 11:00 70 70 19 02/04/22 10:51 70 17 02/04/22 10:41 71 16 02/04/22 10:30 70 24 02/04/22 10:21 73 22 02/04/22 10:14 78 02/04/22 10:11 70 20 02/04/22 10:01 70 23 02/04/22 10:00 71 70 23 02/04/22 09:51 74 24 02/04/22 09:41 72 15 02/04/22 09:30 70 13 02/04/22 09:25 76 02/04/22 09:21 70 20 02/04/22 09:11 70 20 02/04/22 09:00 70 76 20 02/04/22 08:51 70 20 02/04/22 08:41 70 20 02/04/22 08:31 70 20 02/04/22 08:21 70 20 02/04/22 08:11 70 02/04/22 08:00 97.3 F L 70 70 70 20 02/04/22 07:50 70 02/04/22 07:41 70 02/04/22 07:31 70 02/04/22 07:21 70 02/04/22 07:11 76 02/04/22 07:00 76 70 20 02/04/22 06:51 70 02/04/22 06:41 70 02/04/22 06:39 97.8 F 02/04/22 06:31 75 02/04/22 06:21 70 02/04/22 06:11 70 02/04/22 06:00 70 70 20 02/04/22 05:51 75 02/04/22 05:41 70 02/04/22 05:31 70 02/04/22 05:21 70 02/04/22 05:11 70 02/04/22 05:00 70 20 02/04/22 04:51 70 02/04/22 04:41 70 02/04/22 04:31 70 02/04/22 04:21 79 02/04/22 04:15 70 0 L 02/04/22 04:11 70 02/04/22 04:00 70 70 02/04/22 03:51 70 02/04/22 03:41 70 02/04/22 03:31 70 02/04/22 03:21 70 02/04/22 03:11 70 02/04/22 03:05 70 70 20 02/04/22 03:04 71 02/04/22 03:00 70 02/04/22 02:51 70 02/04/22 02:00 20 02/04/22 01:00 70 20 02/04/22 00:25 70 0 L 02/04/22 00:00 97.9 F 70 20 02/03/22 23:06 70 20 02/03/22 23:05 70 02/03/22 23:00 71 20 02/03/22 22:00 70 20 02/03/22 21:00 98.3 F 70 20 02/03/22 20:40 75 0 L 02/03/22 20:00 70 20 02/03/22 19:50 74 74 20 02/03/22 19:49 20 02/03/22 19:00 70 02/03/22 18:00 70 20 02/03/22 17:12 02/03/22 17:00 70 20 02/03/22 16:45 70 02/03/22 16:00 97.8 F 70 70 70 20 02/03/22 15:00 77 20 02/03/22 14:00 70 20 02/03/22 13:18 70 02/03/22 13:00 70 20 02/03/22 12:03 70 02/03/22 12:00 97.2 F L 70 70 70 20 Resp BP Pulse Ox 02/04/22 11:47 02/04/22 11:43 02/04/22 11:00 127/51 100 02/04/22 10:51 134/62 100 02/04/22 10:41 134/62 100 02/04/22 10:30 136/60 100 02/04/22 10:21 97/55 99 02/04/22 10:14 16 02/04/22 10:11 97/55 95 02/04/22 10:01 134/62 95 02/04/22 10:00 134/62 100 02/04/22 09:51 97/55 87 02/04/22 09:41 97/55 89 02/04/22 09:30 97/55 93 02/04/22 09:25 02/04/22 09:21 97/55 100 02/04/22 09:11 97/55 100 02/04/22 09:00 97/55 99 02/04/22 08:51 102/51 100 02/04/22 08:41 102/51 98 02/04/22 08:31 102/51 99 02/04/22 08:21 102/51 96 02/04/22 08:11 102/51 94 02/04/22 08:00 102/51 100 02/04/22 07:50 132/78 97 02/04/22 07:41 132/78 97 02/04/22 07:31 132/78 96 02/04/22 07:21 132/78 96 02/04/22 07:11 132/78 95 02/04/22 07:00 115/49 94 02/04/22 06:51 115/49 97 02/04/22 06:41 115/49 94 02/04/22 06:39 02/04/22 06:31 115/49 95 02/04/22 06:21 115/49 95 02/04/22 06:11 115/49 95 02/04/22 06:00 115/49 94 02/04/22 05:51 106/51 96 02/04/22 05:41 106/51 94 02/04/22 05:31 106/51 94 02/04/22 05:21 106/51 94 02/04/22 05:11 106/51 94 02/04/22 05:00 106/51 94 02/04/22 04:51 98/47 95 02/04/22 04:41 98/47 92 02/04/22 04:31 98/47 93 02/04/22 04:21 98/47 94 02/04/22 04:15 98/47 96 02/04/22 04:11 98/47 92 02/04/22 04:00 98/47 90 02/04/22 03:51 102/49 94 02/04/22 03:41 102/49 94 02/04/22 03:31 102/49 93 02/04/22 03:21 102/49 94 02/04/22 03:11 102/49 92 02/04/22 03:05 95 02/04/22 03:04 102/49 02/04/22 03:00 102/49 91 02/04/22 02:51 92/50 90 02/04/22 02:00 92/50 96 02/04/22 01:00 92/53 95 02/04/22 00:25 90/49 95 02/04/22 00:00 90/49 94 02/03/22 23:06 95 02/03/22 23:05 02/03/22 23:00 95/46 96 02/03/22 22:00 90/50 94 02/03/22 21:00 97/46 92 02/03/22 20:40 79/40 96 02/03/22 20:00 79/40 97 02/03/22 19:50 95 02/03/22 19:49 95 02/03/22 19:00 99/56 02/03/22 18:00 88/41 95 02/03/22 17:12 88/41 02/03/22 17:00 88/41 94 02/03/22 16:45 98/39 100 02/03/22 16:00 98/39 100 02/03/22 15:00 102/44 92 02/03/22 14:00 95/49 92 02/03/22 13:18 98/39 100 02/03/22 13:00 94/50 94 02/03/22 12:03 102/60 02/03/22 12:00 102/60 100 - Physical Examination General: Other (Sedated, on the vent) HEENT: Positive: Other (Pupils fixed) Neck: Positive: neck supple Cardiac: Positive: Regular Rhythm Lungs: Positive: Decreased Breath Sounds Neuro: Positive: Weakness (Sedated, on the vent) Abdomen: Positive: Soft Skin: Positive: Clear Extremities: Absent: edema - Labs and Meds CBC 02/04/22 Range/Units 04:32 WBC 7.3 (4.5-11.0) K/mm3 RBC 4.50 (3.65-5.03) M/mm3 Hgb 11.2 (10.1-14.3) gm/dl Hct 36.8 (30.3-42.9) % Plt Count 314 (140-440) K/mm3 Comprehensive Metabolic Panel 02/03/22 02/04/22 Range/Units 22:23 04:32 Sodium 139 140 (137-145) mmol/L Potassium 3.7 4.0 (3.6-5.0) mmol/L Chloride 105.7 105.0 (98-107) mmol/L Carbon Dioxide 24 25 (22-30) mmol/L BUN 17 19 H (7-17) mg/dL Creatinine 1.2 1.3 H (0.6-1.2) mg/dL Glucose 87 90 (65-100) mg/dL Calcium 8.5 8.6 (8.4-10.2) mg/dL Pacemaker: ventricular pacing w/capt
--- NOTE | 2022-02-04 13:52 | Progress Note ---
Assessment and Plan - Patient Problems (1) Rectus sheath hematoma Current Visit: Yes Status: Acute Plan to address problem: 1) Stable. Continue anticoagulation. Subjective Date of service: 02/04/22 Patient Reports: Positive: no new complaints (Extubated.) Objective Vital Signs - 12hr 02/04/22 02/04/22 02/04/22 02:00 02:51 03:00 Temperature Pulse Rate 70 70 Pulse Rate [ Anterior Bilateral Throughout] Pulse Rate [ From Monitor] Pulse Rate [ None] Pulse Rate [ Radial] Respiratory 20 Rate Respiratory Rate [Anterior Bilateral Throughout] Blood Pressure 92/50 92/50 102/49 O2 Sat by Pulse 96 90 91 Oximetry 02/04/22 02/04/22 02/04/22 03:04 03:05 03:11 Temperature Pulse Rate 71 70 70 Pulse Rate [ Anterior Bilateral Throughout] Pulse Rate [ 70 From Monitor] Pulse Rate [ None] Pulse Rate [ Radial] Respiratory 20 Rate Respiratory Rate [Anterior Bilateral Throughout] Blood Pressure 102/49 102/49 O2 Sat by Pulse 95 92 Oximetry 02/04/22 02/04/22 02/04/22 03:21 03:31 03:41 Temperature Pulse Rate 70 70 70 Pulse Rate [ Anterior Bilateral Throughout] Pulse Rate [ From Monitor] Pulse Rate [ None] Pulse Rate [ Radial] Respiratory Rate Respiratory Rate [Anterior Bilateral Throughout] Blood Pressure 102/49 102/49 102/49 O2 Sat by Pulse 94 93 94 Oximetry 02/04/22 02/04/22 02/04/22 03:51 04:00 04:11 Temperature Pulse Rate 70 70 70 Pulse Rate [ Anterior Bilateral Throughout] Pulse Rate [ From Monitor] Pulse Rate [ 70 None] Pulse Rate [ Radial] Respiratory Rate Respiratory Rate [Anterior Bilateral Throughout] Blood Pressure 102/49 98/47 98/47 O2 Sat by Pulse 94 90 92 Oximetry 02/04/22 02/04/22 02/04/22 04:15 04:21 04:31 Temperature Pulse Rate 70 79 70 Pulse Rate [ Anterior Bilateral Throughout] Pulse Rate [ From Monitor] Pulse Rate [ None] Pulse Rate [ Radial] Respiratory 0 L Rate Respiratory Rate [Anterior Bilateral Throughout] Blood Pressure 98/47 98/47 98/47 O2 Sat by Pulse 96 94 93 Oximetry 02/04/22 02/04/22 02/04/22 04:41 04:51 05:00 Temperature Pulse Rate 70 70 70 Pulse Rate [ Anterior Bilateral Throughout] Pulse Rate [ From Monitor] Pulse Rate [ None] Pulse Rate [ Radial] Respiratory 20 Rate Respiratory Rate [Anterior Bilateral Throughout] Blood Pressure 98/47 98/47 106/51 O2 Sat by Pulse 92 95 94 Oximetry 02/04/22 02/04/22 02/04/22 05:11 05:21 05:31 Temperature Pulse Rate 70 70 70 Pulse Rate [ Anterior Bilateral Throughout] Pulse Rate [ From Monitor] Pulse Rate [ None] Pulse Rate [ Radial] Respiratory Rate Respiratory Rate [Anterior Bilateral Throughout] Blood Pressure 106/51 106/51 106/51 O2 Sat by Pulse 94 94 94 Oximetry 02/04/22 02/04/22 02/04/22 05:41 05:51 06:00 Temperature Pulse Rate 70 75 70 Pulse Rate [ Anterior Bilateral Throughout] Pulse Rate [ From Monitor] Pulse Rate [ None] Pulse Rate [ 70 Radial] Respiratory 20 Rate Respiratory Rate [Anterior Bilateral Throughout] Blood Pressure 106/51 106/51 115/49 O2 Sat by Pulse 94 96 94 Oximetry 02/04/22 02/04/22 02/04/22 06:11 06:21 06:31 Temperature Pulse Rate 70 70 75 Pulse Rate [ Anterior Bilateral Throughout] Pulse Rate [ From Monitor] Pulse Rate [ None] Pulse Rate [ Radial] Respiratory Rate Respiratory Rate [Anterior Bilateral Throughout] Blood Pressure 115/49 115/49 115/49 O2 Sat by Pulse 95 95 95 Oximetry 02/04/22 02/04/22 02/04/22 06:39 06:41 06:51 Temperature 97.8 F Pulse Rate 70 70 Pulse Rate [ Anterior Bilateral Throughout] Pulse Rate [ From Monitor] Pulse Rate [ None] Pulse Rate [ Radial] Respiratory Rate Respiratory Rate [Anterior Bilateral Throughout] Blood Pressure 115/49 115/49 O2 Sat by Pulse 94 97 Oximetry 02/04/22 02/04/22 02/04/22 07:00 07:11 07:21 Temperature Pulse Rate 76 76 70 Pulse Rate [ Anterior Bilateral Throughout] Pulse Rate [ From Monitor] Pulse Rate [ None] Pulse Rate [ 70 Radial] Respiratory 20 Rate Respiratory Rate [Anterior Bilateral Throughout] Blood Pressure 115/49 132/78 132/78 O2 Sat by Pulse 94 95 96 Oximetry 02/04/22 02/04/22 02/04/22 07:31 07:41 07:50 Temperature Pulse Rate 70 70 70 Pulse Rate [ Anterior Bilateral Throughout] Pulse Rate [ From Monitor] Pulse Rate [ None] Pulse Rate [ Radial] Respiratory Rate Respiratory Rate [Anterior Bilateral Throughout] Blood Pressure 132/78 132/78 132/78 O2 Sat by Pulse 96 97 97 Oximetry 02/04/22 02/04/22 02/04/22 08:00 08:11 08:21 Temperature 97.3 F L Pulse Rate 70 70 70 Pulse Rate [ Anterior Bilateral Throughout] Pulse Rate [ 70 From Monitor] Pulse Rate [ None] Pulse Rate [ 70 Radial] Respiratory 20 20 Rate Respiratory Rate [Anterior Bilateral Throughout] Blood Pressure 102/51 102/51 102/51 O2 Sat by Pulse 100 94 96 Oximetry 02/04/22 02/04/22 02/04/22 08:31 08:41 08:51 Temperature Pulse Rate 70 70 70 Pulse Rate [ Anterior Bilateral Throughout] Pulse Rate [ From Monitor] Pulse Rate [ None] Pulse Rate [ Radial] Respiratory 20 20 20 Rate Respiratory Rate [Anterior Bilateral Throughout] Blood Pressure 102/51 102/51 102/51 O2 Sat by Pulse 99 98 100 Oximetry 02/04/22 02/04/22 02/04/22 09:00 09:11 09:21 Temperature Pulse Rate 70 70 70 Pulse Rate [ Anterior Bilateral Throughout] Pulse Rate [ From Monitor] Pulse Rate [ None] Pulse Rate [ 76 Radial] Respiratory 20 20 20 Rate Respiratory Rate [Anterior Bilateral Throughout] Blood Pressure 97/55 97/55 97/55 O2 Sat by Pulse 99 100 100 Oximetry 02/04/22 02/04/22 02/04/22 09:25 09:30 09:41 Temperature Pulse Rate 76 70 72 Pulse Rate [ Anterior Bilateral Throughout] Pulse Rate [ From Monitor] Pulse Rate [ None] Pulse Rate [ Radial] Respiratory 13 15 Rate Respiratory Rate [Anterior Bilateral Throughout] Blood Pressure 97/55 97/55 O2 Sat by Pulse 93 89 Oximetry 02/04/22 02/04/22 02/04/22 09:51 10:00 10:01 Temperature Pulse Rate 74 71 70 Pulse Rate [ Anterior Bilateral Throughout] Pulse Rate [ From Monitor] Pulse Rate [ None] Pulse Rate [ 70 Radial] Respiratory 24 23 23 Rate Respiratory Rate [Anterior Bilateral Throughout] Blood Pressure 97/55 134/62 134/62 O2 Sat by Pulse 87 100 95 Oximetry 02/04/22 02/04/22 02/04/22 10:11 10:14 10:21 Temperature Pulse Rate 70 73 Pulse Rate [ 78 Anterior Bilateral Throughout] Pulse Rate [ From Monitor] Pulse Rate [ None] Pulse Rate [ Radial] Respiratory 20 22 Rate Respiratory 16 Rate [Anterior Bilateral Throughout] Blood Pressure 97/55 97/55 O2 Sat by Pulse 95 99 Oximetry 02/04/22 02/04/22 02/04/22 10:30 10:41 10:51 Temperature Pulse Rate 70 71 70 Pulse Rate [ Anterior Bilateral Throughout] Pulse Rate [ From Monitor] Pulse Rate [ None] Pulse Rate [ Radial] Respiratory 24 16 17 Rate Respiratory Rate [Anterior Bilateral Throughout] Blood Pressure 136/60 134/62 134/62 O2 Sat by Pulse 100 100 100 Oximetry 02/04/22 02/04/22 02/04/22 11:00 11:41 11:43 Temperature 97 F L Pulse Rate 70 70 Pulse Rate [ Anterior Bilateral Throughout] Pulse Rate [ From Monitor] Pulse Rate [ None] Pulse Rate [ 70 Radial] Respiratory 19 14 Rate Respiratory Rate [Anterior Bilateral Throughout] Blood Pressure 127/51 120/53 O2 Sat by Pulse 100 100 Oximetry 02/04/22 11:47 Temperature Pulse Rate 70 Pulse Rate [ Anterior Bilateral Throughout] Pulse Rate [ From Monitor] Pulse Rate [ None] Pulse Rate [ Radial] Respiratory Rate Respiratory Rate [Anterior Bilateral Throughout] Blood Pressure O2 Sat by Pulse Oximetry - Abdomen soft, bowel sounds normal, not rebound, not guarding (RUQ hematoma is unchanged.) - Labs 02/04/22 04:32 02/04/22 04:32 Diabetes panel 02/03/22 02/04/22 Range/Units 22:23 04:32 Sodium 139 140 (137-145) mmol/L Potassium 3.7 4.0 (3.6-5.0) mmol/L Chloride 105.7 105.0 (98-107) mmol/L Carbon Dioxide 24 25 (22-30) mmol/L BUN 17 19 H (7-17) mg/dL Creatinine 1.2 1.3 H (0.6-1.2) mg/dL Glucose 87 90 (65-100) mg/dL Calcium 8.5 8.6 (8.4-10.2) mg/dL Calcium panel 02/03/22 02/04/22 Range/Units 22:23 04:32 Calcium 8.5 8.6 (8.4-10.2) mg/dL Phosphorus 2.60 2.60 (2.5-4.5) mg/dL Pituitary panel 02/03/22 02/04/22 Range/Units 22:23 04:32 Sodium 139 140 (137-145) mmol/L Potassium 3.7 4.0 (3.6-5.0) mmol/L Chloride 105.7 105.0 (98-107) mmol/L Carbon Dioxide 24 25 (22-30) mmol/L BUN 17 19 H (7-17) mg/dL Creatinine 1.2 1.3 H (0.6-1.2) mg/dL Glucose 87 90 (65-100) mg/dL Calcium 8.5 8.6 (8.4-10.2) mg/dL Adrenal panel 02/03/22 02/04/22 Range/Units 22:23 04:32 Sodium 139 140 (137-145) mmol/L Potassium 3.7 4.0 (3.6-5.0) mmol/L Chloride 105.7 105.0 (98-107) mmol/L Carbon Dioxide 24 25 (22-30) mmol/L BUN 17 19 H (7-17) mg/dL Creatinine 1.2 1.3 H (0.6-1.2) mg/dL Glucose 87 90 (65-100) mg/dL Calcium 8.5 8.6 (8.4-10.2) mg/dL
[2022-02-04] MEDS: DIGOXIN 0.25 MG TAB PO SCH (17:44)
[2022-02-05] MEDS: METOPROLOL TARTRATE 50 MG TAB PO SCH ×2 (03:21→21:58)
[2022-02-05 05:31] LABS: Mean Corpuscular HGB Conc 30 % (30-34); Mean Corpuscular Volume 83 fl (79-97); Platelet Count 313 K/mm3 (140-440); Red Blood Count 4.79 M/mm3 (3.65-5.03); Red Cell Distribution Width 18.8 % (13.2-15.2)
[2022-02-05 05:40] LABS: Hematocrit 39.9 % (30.3-42.9); Hemoglobin 11.9 gm/dl (10.1-14.3)
[2022-02-05] MEDS: FUROSEMIDE 40 MG/4 ML INJ IV SCH (05:41)
[2022-02-05] MEDS: HEPARIN/ 0.45% NACL DRIP 25,000 UNIT/500 ML BAG IV SCH (05:41)
[2022-02-05 06:02] LABS: Calcium 9.4 mg/dL (8.4-10.2)
[2022-02-05] MEDS: ACETAMINOPHEN 325 MG TAB PO PRN ×2 (06:41→17:15)
--- NOTE | 2022-02-05 08:06 | XRay Report ---
CHEST 1 VIEW INDICATION / CLINICAL INFORMATION: follow up respiratory failure. COMPARISON: 02/03/2022 FINDINGS: SUPPORT DEVICES: Stable, satisfactory device positioning. HEART / MEDIASTINUM: Sternotomy and cardiomegaly again noted. LUNGS / PLEURA: Bilateral pleural-parenchymal disease, unchanged No pneumothorax. ADDITIONAL FINDINGS: No significant additional findings. IMPRESSION: 1. No interval change Signer Name: Zane Mcclendon MD Signed: 02/04/2022 3:11 AM Workstation Name: [id number]
--- NOTE | 2022-02-05 08:09 | Progress Note ---
Assessment and Plan 56 y/o female admitted with altered mental state and acute respiratory failure. 02/05/22: Pulm status stable on nasal cannula. No distress noted and no further episodes of stridor. Stable for transfer to the floor. 02/04/22: Attempt extubation today. Restart lasix and give IV dose prior to extubation. Bipap order for QHS and PRN given her degree of heart failure, she could have central ELVIRA. Continue anticoagulation. 1. Wean sedation as tolerated 2. SBT and awakening trials daily 3. Volume removal 4. Heparin for mechanical valve as INR is subtherapeutic 5. BP control CCT 31 minutes. Subjective Date of service: 02/05/22 Principal diagnosis: Altered mental status, respiratory failure Interval history: Successful extubation on yesterday. had some stridor earlier but resolved with 2 racemics and one time dose of solumedrol. Wore bipap last night some Objective Vital Signs - 12hr 02/04/22 02/04/22 02/04/22 20:38 21:00 22:00 Temperature Pulse Rate 70 70 Pulse Rate [ From Monitor] Respiratory 10 L 11 L Rate Blood Pressure 123/60 124/65 O2 Sat by Pulse 97 91 86 Oximetry 02/04/22 02/04/22 02/05/22 23:00 23:37 00:00 Temperature 98.8 F Pulse Rate 70 70 70 Pulse Rate [ 70 From Monitor] Respiratory 10 L 14 12 Rate Blood Pressure 127/68 133/77 127/74 O2 Sat by Pulse 96 98 97 Oximetry 02/05/22 02/05/22 02/05/22 00:19 01:00 02:00 Temperature Pulse Rate 70 70 70 Pulse Rate [ From Monitor] Respiratory 14 12 13 Rate Blood Pressure 127/74 116/63 118/63 O2 Sat by Pulse 98 95 97 Oximetry 02/05/22 02/05/22 02/05/22 03:00 03:04 04:00 Temperature 98.2 F Pulse Rate 70 70 Pulse Rate [ 70 From Monitor] Respiratory 13 16 Rate Blood Pressure 114/73 O2 Sat by Pulse 98 95 Oximetry 02/05/22 02/05/22 02/05/22 04:01 05:00 06:00 Temperature Pulse Rate 70 70 70 Pulse Rate [ From Monitor] Respiratory 16 13 15 Rate Blood Pressure 92/65 134/58 122/83 O2 Sat by Pulse 96 100 98 Oximetry 02/05/22 07:01 Temperature Pulse Rate 71 Pulse Rate [ From Monitor] Respiratory 17 Rate Blood Pressure 140/50 O2 Sat by Pulse 100 Oximetry CBC and BMP: 02/06/22 06:03 02/06/22 08:08 ABG, PT/INR, D-dimer: ABG ABG pH 7.380 pH Units (7.350-7.450) 02/04/22 05:35 ABG pCO2 48.6 mm Hg 02/04/22 05:35 ABG pO2 67.0 mm Hg (80.0-90.0) L 02/04/22 05:35 ABG O2 Saturation 93.8 % (95.0-99.0) L 02/04/22 05:35 PT/INR, D-dimer PT 16.3 Sec. (12.2-14.9) H 02/02/22 07:50 INR 1.17 (0.87-1.13) H 02/02/22 07:50 Abnormal lab findings: Abnormal Labs 02/01/22 02/01/22 02/02/22 21:59 21:59 07:50 MCH 25 L RDW 19.0 H Lymph % (Auto) [place] % (Auto) 7.4 H Lymph # (Auto) 0.9 L Seg Neutrophils % 76.0 H PT 16.3 H INR 1.17 H Heparin Anti-Xa Level ABG pO2 ABG HCO3 ABG O2 Saturation ABG Hemoglobin Oxyhemoglobin Potassium 3.0 L BUN Creatinine POC Glucose Total Bilirubin 2.30 H ALT 6 L Troponin T C-Reactive Protein NT-Pro-B Natriuret Pep Total Protein 8.3 H Albumin 3.5 L HDL Cholesterol Salicylates Acetaminophen 02/02/22 02/02/22 02/02/22 07:50 07:50 08:07 MCH RDW Lymph % (Auto) [place] % (Auto) Lymph # (Auto) Seg Neutrophils % PT INR Heparin Anti-Xa Level ABG pO2 ABG HCO3 ABG O2 Saturation ABG Hemoglobin Oxyhemoglobin Potassium BUN Creatinine POC Glucose Total Bilirubin ALT Troponin T 0.077 H C-Reactive Protein NT-Pro-B Natriuret Pep 3678 H Total Protein Albumin HDL Cholesterol 38 L Salicylates < 0.3 L Acetaminophen 5.0 L 02/02/22 02/02/22 02/02/22 10:30 12:42 18:37 MCH RDW Lymph % (Auto) [place] % (Auto) Lymph # (Auto) Seg Neutrophils % PT INR Heparin Anti-Xa Level 0.10 L ABG pO2 153.8 H ABG HCO3 26.5 H ABG O2 Saturation ABG Hemoglobin 10.9 L Oxyhemoglobin Potassium BUN Creatinine POC Glucose 69 L Total Bilirubin ALT Troponin T C-Reactive Protein NT-Pro-B Natriuret Pep Total Protein Albumin HDL Cholesterol Salicylates Acetaminophen 02/02/22 02/03/22 02/03/22 23:24 03:57 03:57 MCH 25 L RDW 18.7 H Lymph % (Auto) 13.1 L [place] % (Auto) 10.6 H Lymph # (Auto) 0.9 L Seg Neutrophils % 71.7 H PT INR Heparin Anti-Xa Level ABG pO2 ABG HCO3 ABG O2 Saturation ABG Hemoglobin Oxyhemoglobin Potassium 3.3 L BUN Creatinine POC Glucose 60 L Total Bilirubin ALT Troponin T 0.094 H C-Reactive Protein NT-Pro-B Natriuret Pep Total Protein Albumin HDL Cholesterol Salicylates Acetaminophen 02/03/22 02/03/22 02/03/22 04:20 11:31 17:25 MCH RDW Lymph % (Auto) [place] % (Auto) Lymph # (Auto) Seg Neutrophils % PT INR Heparin Anti-Xa Level ABG pO2 ABG HCO3 26.6 H ABG O2 Saturation ABG Hemoglobin 11.3 L Oxyhemoglobin 94.8 L Potassium BUN Creatinine POC Glucose 113 H Total Bilirubin ALT Troponin T 0.092 H C-Reactive Protein 6.20 H NT-Pro-B Natriuret Pep Total Protein Albumin HDL Cholesterol Salicylates Acetaminophen 02/04/22 02/04/22 02/04/22 04:32 04:32 05:35 MCH 25 L RDW 18.6 H Lymph % (Auto) [place] % (Auto) Lymph # (Auto) Seg Neutrophils % PT INR Heparin Anti-Xa Level ABG pO2 67.0 L ABG HCO3 28.1 H ABG O2 Saturation 93.8 L ABG Hemoglobin 11.2 L Oxyhemoglobin 91.7 L Potassium BUN 19 H Creatinine 1.3 H POC Glucose Total Bilirubin ALT Troponin T C-Reactive Protein NT-Pro-B Natriuret Pep Total Protein Albumin HDL Cholesterol Salicylates Acetaminophen 02/04/22 02/04/22 02/05/22 17:37 20:51 05:09 MCH 25 L RDW 18.8 H Lymph % (Auto) [place] % (Auto) Lymph # (Auto) Seg Neutrophils % PT INR Heparin Anti-Xa Level < 0.10 L ABG pO2 ABG HCO3 ABG O2 Saturation ABG Hemoglobin Oxyhemoglobin Potassium BUN Creatinine POC Glucose 157 H Total Bilirubin ALT Troponin T C-Reactive Protein NT-Pro-B Natriuret Pep Total Protein Albumin HDL Cholesterol Salicylates Acetaminophen 02/05/22 02/05/22 05:09 05:09 MCH RDW Lymph % (Auto) [place] % (Auto) Lymph # (Auto) Seg Neutrophils % PT INR Heparin Anti-Xa Level 1.40 H ABG pO2 ABG HCO3 ABG O2 Saturation ABG Hemoglobin Oxyhemoglobin Potassium BUN 23 H Creatinine 1.4 H POC Glucose Total Bilirubin ALT Troponin T C-Reactive Protein NT-Pro-B Natriuret Pep Total Protein Albumin HDL Cholesterol Salicylates Acetaminophen
[2022-02-05] MEDS: SENNOSIDES/DOCUSATE SODIUM 8.6/50 MG TAB FEEDTUBE SCH (09:06)
[2022-02-05] MEDS: SPIRONOLACTONE 25 MG TAB PO SCH (09:06)
[2022-02-05] MEDS: LISINOPRIL 10 MG TAB PO SCH (09:06)
[2022-02-05] MEDS: FAMOTIDINE 10 MG TAB PO SCH ×2 (09:07→21:57)
[2022-02-05] MEDS: GABAPENTIN 300 MG CAP PO SCH ×3 (09:07→21:58)
--- NOTE | 2022-02-05 12:18 | Progress Note ---
Assessment and Plan Assessment and plan: This is a 56-year-old female with known past medical history of COPD, HTN, HLD, mechanical mitral and aortic valves replacement, CHF, nonischemic cardiomyopathy s/p AICD, and chronic atrial fibrillation, noncompliant with anticoagulation admitted for AMS and acute hypoxic respiratory failure requiring ventilatory Hospital Course to Date: 02/03: Stable on the vent, sedation initiated overnight due to increase agitation. Wean sedation as tolerated, plan for possible SAT/SBT tomorrow. Blood culture positive GPC in 1 out 4 bottles, empiric IV antibiotics- Vanco initiated over night. Patient remains afebrile, WBCs wnr, BP bordeline this am probably secondary to sedation. Continue empiric IV Abx for now, repeat Blood cultures, and will also check a procal. Periods of hypoglycemia overnight, TF at goal this am, continue BG check and hypoglycemic protocol. Patient remains on IV lasix BID, monitor renal function and electrolytes, replete as needed. 02/04: Remains on thevent on low dose sedation today,fentanyl at 1mcg. Following simple commands. This am ABG and CXR noted, IV lasix held due to low BP. Mild increase in scr this am, probably due to hypoperfusion, resume lasix and continue to monitor renal function. Plan for possible extubation today, BIPAP at night and PRN post extubation. 02/05: s/p extubation, stable on 4L NC. Continue Nebs treatment and O2 supplementa tion, wean as tolerated for SPO2 goal above 90%. Bipap at night. Patient remains afebrile with no leukocytosis, repeat blood culture are with NGTD, Procal 0.47. IV Vanco D/C. Renal function continue to worsen, Scr. 1.4 this am. IV lasix reduced to qday, continue to monitor renal function for now. Patient remains on heparin gtt, plan to bridge to PO coumadin today, goal INR 2.5-3.5. PT/INR pending. D/C CCM patient is stable for transfer to telemetry. Assessment and Plan #Acute Hypoxic Respiratory Failure #Pulmonary edema #H/o COPD -Intubated in the ED on 02/02 fir airway protection -Chest x-ray reviewed, suggestive of pulmonary edema -likely secondary to CHF exacerbation -02/04 s/p extubation -Now stable on 4L NC -[facility] consulted, appreciate recommendations -Continue IV lasix and Nebs treatment as needed -Aspiration precaution HOB above 30 -Continue O2 supplementation and wean as tolerated -Continue SPO2 monitoring for SPO2 goal above 90% -Bipap at night #Acute on chronic heart failure with reduced ejection fraction #Dilated nonischemic Cardiomyopathy s/p AICD #Chronic Atrial fibrillation #h/o mechanical aortic and mitral valves #Noncompliant with Anticoagulation -TTE 10/2021: LVEF 30-35% -NTproBNP 3678, elevated Troponin X2 most like type 2 -Patient is Vpacing on the monitor, HR 70 -restarted aldactone, digoxin, metoprolol and lisinopril at home doses -IV lasix reduced to qday due to worsen renal function -Continue blood pressure monitor per protocol -Maintain MAP above 65 -Cardiology also consulted -patient was prescribed warfarin in the past, likely non-compliant given multiple subtheraputic INRs (current INR 1.17) -continue heparin gtt for now- bridge to coumadin today -goal INR 2.5-3.5 #Acute Metabolic Encephalopathy-resolved -CT head negative for acute abnormality -UA unremarkable -Avoid benzodiazepine to reduce the possibility of delirium -PRN Analgesia for pain control -Maintenance of sleep-wake cycle #Positive Blood Culture -Blood culture + GPC in 1 out 4 bottles, probable cross contamination -Chest x-ray reviewed, suggestive of pulmonary edema -UA is unremarkable, sputum culture pending -Patient is afebrile, WBCs wnr -Repeat Blood cultures NGTD -Procal 0.47 -IV Vanco D/C -Continue to F/U on cultures -Daily CBC monitor -Consider ID consult if febrile or/and if leukocytosis occur #Rectus sheath hematoma #Rib fractures -seen on previous imaging on 01/31 ER visit -Most likely due to some sort of injury/fall -General surgery consulted, assistance appreciated -No plan for any surgical intervention at this time -On heparin gtt per protcol -H&H remains stable -Close monitoring of s/s of active bleeding #Hypoglycemia-improved -Low BG overnight, resolved this am -Enteral nutrition at goal this am -Continue BG check Q6hrs -Avoid Hypoglycemia -Continue Hypoglycemic protocol #Hypokalemia-improved -Patient is on IV lasix -K repleted -Monitor and replace electrolytes as needed #Hyperlipidemia -continue statin at home dose #GI/DVT Prophylaxis -PPI- Pepcid -Heparin gtt-bridging to coumadin The high probability of a clinically significant, sudden or life threatening deterioration of the [multiple] system(s) required my full and direct attention, intervention and personal management. The aggregate critical care time was [60] minutes. This time is in addition to time spent performing reported procedures but includes the following: [x] Data Review and interpretation [x] Patient assessment and monitoring of vital signs [x] Documentation [x] Medication orders and management Disposition Plan: transfer to the floor Total Time Spent with Patient (Minutes): 60 History Interval history: Patient seen and examined at the bedside. s/p extubation, AAO with periods of confusion, on 4L NC. VSS. Remains on heparin gtt. Hospitalist Physical - Constitutional Vitals: Temp Pulse Resp BP Pulse Ox 97.6 F 70 13 105/47 95 02/05/22 12:00 02/05/22 12:00 02/05/22 12:00 02/05/22 12:00 02/05/22 12:00 General appearance: Present: no acute distress, obese - EENT Eyes: Present: PERRL, EOM intact ENT: hearing intact - Neck Neck: Present: normal ROM - Respiratory Respiratory effort: normal Respiratory: bilateral: wheezing - Cardiovascular Rhythm: regular Heart Sounds: Present: S1 & S2 - Extremities Extremities: no ischemia, pulses intact, pulses symmetrical Extremity abnormal: edema - Peripheral Assessment Generalized Edema Type: Non-pitting Edema Degree: 2+ Capillary Refill: < 3 seconds Skin Temperature: Warm Peripheral Pulses: within normal limits - Abdominal General gastrointestinal: soft, non-distended, normal bowel sounds - Integumentary Integumentary: Present: clear, warm, dry - Psychiatric Psychiatric: appropriate mood/affect, cooperative - Neurologic Neurologic: CNII-XII intact, moves all extremities, other (AAOX 2 to 3 with periods of confusion) - Allied Health Allied health notes reviewed: nursing, case management HEART Score - HEART Score Troponin: Troponin T 0.092 ng/mL (0.00-0.029) H 02/03/22 11:31 Results - Labs CBC & Chem 7: 02/05/22 05:09 02/05/22 05:09 Labs: Laboratory Last Values WBC 9.8 K/mm3 (4.5-11.0) 02/05/22 05:09 RBC 4.79 M/mm3 (3.65-5.03) 02/05/22 05:09 Hgb 11.9 gm/dl (10.1-14.3) 02/05/22 05:09 Hct 39.9 % (30.3-42.9) 02/05/22 05:09 MCV 83 fl (79-97) 02/05/22 05:09 MCH 25 pg (28-32) L 02/05/22 05:09 MCHC 30 % (30-34) 02/05/22 05:09 RDW 18.8 % (13.2-15.2) H 02/05/22 05:09 Plt Count 313 K/mm3 (140-440) 02/05/22 05:09 Lymph % (Auto) 13.1 % (13.4-35.0) L 02/03/22 03:57 [place] % (Auto) 10.6 % (0.0-7.3) H 02/03/22 03:57 Eos % (Auto) 3.8 % (0.0-4.3) 02/03/22 03:57 Baso % (Auto) 0.8 % (0.0-1.8) 02/03/22 03:57 Lymph # (Auto) 0.9 K/mm3 (1.2-5.4) L 02/03/22 03:57 [place] # (Auto) 0.7 K/mm3 (0.0-0.8) 02/03/22 03:57 Eos # (Auto) 0.2 K/mm3 (0.0-0.4) 02/03/22 03:57 Baso # (Auto) 0.1 K/mm3 (0.0-0.1) 02/03/22 03:57 Seg Neutrophils % 71.7 % (40.0-70.0) H 02/03/22 03:57 Seg Neutrophils # 4.7 K/mm3 (1.8-7.7) 02/03/22 03:57 PT 16.3 Sec. (12.2-14.9) H 02/02/22 07:50 INR 1.17 (0.87-1.13) H 02/02/22 07:50 APTT 33.2 Sec. (24.2-36.6) 02/02/22 07:50 Heparin Anti-Xa Level < 0.10 U.I./ml (0.3-0.7) L 02/05/22 09:18 ABG pH 7.380 pH Units (7.350-7.450) 02/04/22 05:35 ABG pCO2 48.6 mm Hg 02/04/22 05:35 ABG pO2 67.0 mm Hg (80.0-90.0) L 02/04/22 05:35 ABG HCO3 28.1 mmol/L (20.0-26.0) H 02/04/22 05:35 ABG O2 Saturation 93.8 % (95.0-99.0) L 02/04/22 05:35 ABG O2 Content 14.5 (0.0-44) 02/04/22 05:35 ABG Base Excess 2.4 mmol/L (-2.0-3.0) 02/04/22 05:35 ABG Hemoglobin 11.2 gm/dl (12.0-16.0) L 02/04/22 05:35 ABG Carboxyhemoglobin 1.8 % (0.0-5.0) 02/04/22 05:35 ABG Methemoglobin 0.5 % (0.0-1.5) 02/04/22 05:35 Oxyhemoglobin 91.7 % (95.0-99.0) L 02/04/22 05:35 FiO2 40 % 02/04/22 05:35 Sodium 141 mmol/L (137-145) 02/05/22 05:09 Potassium 4.6 mmol/L (3.6-5.0) 02/05/22 05:09 Chloride 102.6 mmol/L (98-107) 02/05/22 05:09 Carbon Dioxide 22 mmol/L (22-30) 02/05/22 05:09 Anion Gap 21 mmol/L 02/05/22 05:09 BUN 23 mg/dL (7-17) H 02/05/22 05:09 Creatinine 1.4 mg/dL (0.6-1.2) H 02/05/22 05:09 Estimated GFR 47 ml/min 02/05/22 05:09 BUN/Creatinine Ratio 16 % 02/05/22 05:09 Glucose 97 mg/dL (65-100) 02/05/22 05:09 POC Glucose 157 mg/dL (70-105) H 02/04/22 17:37 Lactic Acid 1.80 mmol/L (0.7-2.0) 02/02/22 07:50 Calcium 9.4 mg/dL (8.4-10.2) 02/05/22 05:09 Phosphorus 3.90 mg/dL (2.5-4.5) D 02/05/22 05:09 Magnesium 2.10 mg/dL (1.7-2.3) 02/05/22 05:09 Total Bilirubin 2.30 mg/dL (0.1-1.2) H 02/01/22 21:59 AST 18 units/L (5-40) 02/01/22 21:59 ALT 6 units/L (7-56) L 02/01/22 21:59 Alkaline Phosphatase 97 units/L (35-129) 02/01/22 21:59 Total Creatine Kinase 59 units/L (30-135) 02/02/22 07:50 Troponin T 0.092 ng/mL (0.00-0.029) H 02/03/22 11:31 C-Reactive Protein 6.20 mg/dL (0.00-1.30) H 02/03/22 11:31 NT-Pro-B Natriuret Pep 3678 pg/mL (0-900) H 02/02/22 07:50 Total Protein 8.3 g/dL (6.3-8.2) H 02/01/22 21:59 Albumin 3.5 g/dL (3.9-5) L 02/01/22 21:59 Albumin/Globulin Ratio 0.7 % 02/01/22 21:59 Triglycerides 75 mg/dL (2-149) 02/02/22 07:50 Cholesterol 117 mg/dL (50-199) 02/02/22 07:50 LDL Cholesterol Direct 62 mg/dL (50-130) 02/02/22 07:50 HDL Cholesterol 38 mg/dL (40-59) L 02/02/22 07:50 Cholesterol/HDL Ratio 3.07 % 02/02/22 07:50 TSH 1.320 mlU/mL (0.270-4.200) 02/02/22 07:50 Urine Color Yellow (Yellow) 02/02/22 11:17 Urine Turbidity Clear (Clear) 02/02/22 11:17 Urine pH 7.0 (5.0-7.0) 02/02/22 11:17 Ur Specific [place] 1.005 (1.003-1.030) 02/02/22 11:17 Urine Protein 30 mg/dl mg/dL (Negative) 02/02/22 11:17 Urine Glucose (UA) Neg mg/dL (Negative) 02/02/22 11:17 Urine Ketones Neg mg/dL (Negative) 02/02/22 11:17 Urine Blood Sm (Negative) 02/02/22 11:17 Urine Nitrite Neg (Negative) 02/02/22 11:17 Urine Bilirubin Neg (Negative) 02/02/22 11:17 Urine Urobilinogen < 2.0 mg/dL (<2.0) 02/02/22 11:17 Ur Leukocyte Esterase Neg (Negative) 02/02/22 11:17 Urine WBC (Auto) 1.0 /HPF (0.0-6.0) 02/02/22 11:17 Urine RBC (Auto) 1.0 /HPF (0.0-6.0) 02/02/22 11:17 U Epithel Cells (Auto) 1.0 /HPF (0-13.0) 02/02/22 11:17 Urine Bacteria (Auto) 1+ /HPF (Negative) 02/02/22 11:17 Urine Mucus Few /HPF 02/02/22 11:17 Salicylates < 0.3 mg/dL (2.8-20.0) L 02/02/22 07:50 Acetaminophen 5.0 ug/mL (10.0-30.0) L 02/02/22 08:07 Plasma/Serum Alcohol < 0.01 % (0-0.07) 02/02/22 07:50 Microbiology: Microbiology 02/02/22 08:07 Peripheral/Venous Blood Culture - Preliminary NO GROWTH AFTER 72 HOURS 02/03/22 11:31 Peripheral/Venous Blood Culture - Preliminary NO GROWTH AFTER 24 HOURS 02/03/22 11:51 Peripheral/Venous Blood Culture - Preliminary NO GROWTH AFTER 24 HOURS 02/02/22 08:07 Peripheral/Venous Blood Culture - Preliminary Coag Negative Staphylococcus 02/02/22 10:25 Tracheal Aspirate Sputum Culture - Final [place]/IV: Voiding Method Indwelling Catheter Active Medications - Current Medications Current Medications: Generic Name Dose Route Start Last Admin Trade Name Freq PRN Reason Stop Dose Admin Acetaminophen 650 mg 02/02/22 09:46 02/05/22 06:41 Acetaminophen 325 Mg Tab PO 650 mg Q6H PRN Administration Pain MILD(1-3)/Fever >100.5/VACA Lipase/Protease/Amylase 1 each 02/02/22 11:15 Lipase 10,500/Protease 25,000/Amylase 43,750 (Units) Dr Colon FEEDTUBE PRN PRN For Clogged Feeding Tube Atorvastatin Calcium 40 mg 02/02/22 22:00 02/04/22 21:01 Atorvastatin 40 Mg Tab PO Not Given QHS HERACLIO Digoxin 0.25 mg 02/02/22 17:00 02/04/22 17:44 Digoxin 0.25 Mg Tab PO 0.25 mg DAILY@1700 HERACLIO Administration Famotidine 10 mg 02/03/22 11:00 02/05/22 09:07 Famotidine 10 Mg Tab PO 10 mg BID HERACLIO Administration Fentanyl 50 mcg 02/02/22 09:57 Fentanyl 100 Mcg/2 Ml Inj IV Q10MIN PRN ANALGESIA Furosemide 40 mg 02/06/22 06:00 Furosemide 40 Mg/4 Ml Inj IV 0600 HERACLIO Gabapentin 300 mg 02/02/22 14:00 02/05/22 09:07 Gabapentin 300 Mg Cap PO 300 mg TID HERACLIO Administration Heparin Sodium (Porcine) 4,500 unit 02/02/22 09:40 02/04/22 22:00 Heparin 10,000 Units/10 Ml Vial 40 unit/kg (4500 unit) 4,500 unit IV Administration Q6H PRN Anti-Xa Assay < 0.1 units/ml Hydrophilic Ointment 1 applic 02/02/22 09:09 Lip Therapy Vaseline TP Q2HR PRN Dry Lips Propofol 1,000 mg in 100 mls @ 3.402 mls/hr 02/02/22 10:00 02/03/22 13:11 Diprivan 10 Mg/Ml IV 0 mcg/kg/min TITR HERACLIO 0 mls/hr Titration Protocol 5 MCG/KG/MIN Heparin Sodium/Sodium Chloride 25,000 unit in 500 mls @ 30 mls/hr 02/02/22 10:00 02/05/22 08:04 Heparin/ 0.45% Nacl-25,000 Unit/500 Ml IV 1,650 units/hr TITR HERACLIO 33 mls/hr Titration Protocol 1,500 UNITS/HR Fentanyl Citrate 2,000 mcg in 100 mls @ 5.67 mls/hr 02/02/22 10:00 02/04/22 15:32 Fentanyl Drip Premix IV 0 mcg/kg/hr TITR HERACLIO 0 mls/hr Titration Protocol 1 MCG/KG/HR Lisinopril 10 mg 02/02/22 13:00 02/05/22 09:06 Lisinopril 10 Mg Tab PO 10 mg QDAY HERACLIO Administration Metoprolol Tartrate 50 mg 02/02/22 12:00 02/05/22 03:21 Metoprolol Tartrate 50 Mg Tab PO Not Given Q8H HERACLIO Multi-Ingred Cream/Lotion/Oil/Oint 1 applic 02/02/22 09:09 Mineral Oil/Petrolatum, White Ophth Oint 3.5 Gm OU Q4HR PRN Dry Eye(s) Senna/Docusate Sodium 1 tab 02/02/22 10:00 02/05/22 09:06 Sennosides/Docusate Sodium 8.6/50 Mg Tab FEEDTUBE 1 tab BID HERACLIO Administration Simple Syrup 15 ml 02/02/22 11:15 02/02/22 23:27 Simple Syrup 15 Ml FEEDTUBE 15 ml PRN PRN Administration Hypoglycemia Simple Syrup 30 ml 02/02/22 11:15 Simple Syrup 15 Ml FEEDTUBE PRN PRN Hypoglycemia Sodium Bicarbonate 325 mg 02/02/22 11:15 Sodium Bicarbonate 325 Mg Tab FEEDTUBE PRN PRN For Clogged Feeding Tube Sodium Chloride 10 ml 02/02/22 10:00 02/05/22 09:07 Sodium Chloride 0.9% 10 Ml Flush Syringe IV 10 ml BID HERACLIO Administration Sodium Chloride 10 ml 02/02/22 09:46 Sodium Chloride 0.9% 10 Ml Flush Syringe IV PRN PRN LINE FLUSH Spironolactone 25 mg 02/02/22 13:00 02/05/22 09:06 Spironolactone 25 Mg Tab PO 25 mg QDAY HERACLIO Administration Nutrition/Malnutrition Assess - Dietary Evaluation Nutrition/Malnutrition Findings: Nutrition Notes Start: 02/02/22 12:03 Freq: Status: Active Protocol: Document 02/03/22 11:18 CARLOS (Rec: 02/03/22 11:30 ALLENNIE [id number]) Nutrition Notes Initial or Follow up Reassessment Current Diagnosis COPD,Heart Failure,Respiratory Failure,Hyperlipidemia Other Pertinent Diagnosis Pulmonary edema, Rectus sheath hematoma, Rib fx, chronic afib Current Diet TF - Vital AF 1.2 at 40ml/hr Labs/Tests K 3.3 Pertinent Medications Lasix, Heparin gtt, 20mEq KCl q8h, Propofol at 10.206ml/hr ( provides 269 kcal), Senokot Height 5 ft 4 in Weight 113.398 kg [place] Body Weight (kg) 54.54 BMI 42.9 Weight Status Morbidly Obese Subjective/Other Information Pt remains on vent support. Pt tolerating TF at goal rate. RN informed of intent to change TF formula to provide additional protein for this pt . Percent of energy/protein needs met: 86% energy 53% pro Burn Absent Trauma Present #2 Nutrition Diagnosis Inadequate protein intake Etiology EN prescription As Evidenced by Signs and Symptoms current TF formula and rate provides <75% of estimated protein needs #1 Nutrition Diagnosis Inadequate oral intake Diagnosis Progress(for reassessment Continues documentation) Is patient on ventilator? Yes Is Patient Ambulatory and/or Out of Bed No REE-([place]-St. Jeor-confined to bed) 2048.892 Calculation Used for Recommendations 65-70% REE Additional Notes Energy needs: 7575-5252 kcal/ day Pro needs up to 2.5g/kg IBW: up to 136g/day Fluid needs 1ml/kcal Nutrition Intervention Nutrition Support: Change TF formula to Vital High Protein at 60ml/hr with 50ml water flush q4h. Kcal 1,440 Protein (gm) 126 Carbohydrates (gm) 161 Fat (gm) 33 Fluid (mL) 1,204 Fiber (gm) 0 Goal #1 TF tolerance Goal #2 TF to meet 65-70% REE and at least 75% pro needs Anticipated Discharge Needs: Continue EN support if necessary Follow-Up By: 02/05/22 Additional Comments F/U: TF formula change/ tolerance, vent status, propofol
[2022-02-05 12:26] LABS: INR 1.06 (0.87-1.13)
--- NOTE | 2022-02-05 13:28 | Progress Note ---
Assessment and Plan - Patient Problems (1) Rectus sheath hematoma Current Visit: Yes Status: Acute Plan to address problem: 1) Stable. Continue anticoagulation. Subjective Date of service: 02/05/22 Patient Reports: Positive: no new complaints Objective Vital Signs - 12hr 02/05/22 02/05/22 02/05/22 02:00 03:00 03:04 Temperature Pulse Rate 70 70 70 Pulse Rate [ From Monitor] Respiratory 13 13 Rate Blood Pressure 118/63 114/73 O2 Sat by Pulse 97 98 Oximetry 02/05/22 02/05/22 02/05/22 04:00 04:01 05:00 Temperature 98.2 F Pulse Rate 70 70 Pulse Rate [ 70 From Monitor] Respiratory 16 16 13 Rate Blood Pressure 92/65 134/58 O2 Sat by Pulse 95 96 100 Oximetry 02/05/22 02/05/22 02/05/22 06:00 07:01 08:00 Temperature 97.5 F L Pulse Rate 70 71 70 Pulse Rate [ 70 From Monitor] Respiratory 15 17 13 Rate Blood Pressure 122/83 140/50 132/57 O2 Sat by Pulse 98 100 100 Oximetry 02/05/22 02/05/22 02/05/22 08:47 09:01 10:00 Temperature Pulse Rate 70 70 Pulse Rate [ From Monitor] Respiratory 16 14 Rate Blood Pressure 132/57 130/60 O2 Sat by Pulse 100 94 92 Oximetry 02/05/22 02/05/22 02/05/22 11:00 12:00 13:00 Temperature 97.6 F Pulse Rate 70 70 70 Pulse Rate [ 70 From Monitor] Respiratory 16 17 17 Rate Blood Pressure 111/69 105/47 83/53 O2 Sat by Pulse 98 96 95 Oximetry - Abdomen [id number] 4, PM_46_[id number] 6, PM_46_[id number] 8 Hernia: none - Labs 02/05/22 05:09 02/05/22 05:09 Diabetes panel 02/05/22 Range/Units 05:09 Sodium 141 (137-145) mmol/L Potassium 4.6 (3.6-5.0) mmol/L Chloride 102.6 (98-107) mmol/L Carbon Dioxide 22 (22-30) mmol/L BUN 23 H (7-17) mg/dL Creatinine 1.4 H (0.6-1.2) mg/dL Glucose 97 (65-100) mg/dL Calcium 9.4 (8.4-10.2) mg/dL Calcium panel 02/05/22 Range/Units 05:09 Calcium 9.4 (8.4-10.2) mg/dL Phosphorus 3.90 D (2.5-4.5) mg/dL Pituitary panel 02/05/22 Range/Units 05:09 Sodium 141 (137-145) mmol/L Potassium 4.6 (3.6-5.0) mmol/L Chloride 102.6 (98-107) mmol/L Carbon Dioxide 22 (22-30) mmol/L BUN 23 H (7-17) mg/dL Creatinine 1.4 H (0.6-1.2) mg/dL Glucose 97 (65-100) mg/dL Calcium 9.4 (8.4-10.2) mg/dL Adrenal panel 02/05/22 Range/Units 05:09 Sodium 141 (137-145) mmol/L Potassium 4.6 (3.6-5.0) mmol/L Chloride 102.6 (98-107) mmol/L Carbon Dioxide 22 (22-30) mmol/L BUN 23 H (7-17) mg/dL Creatinine 1.4 H (0.6-1.2) mg/dL Glucose 97 (65-100) mg/dL Calcium 9.4 (8.4-10.2) mg/dL
--- NOTE | 2022-02-05 13:53 | Progress Note ---
Assessment and Plan - Patient Problems (1) Respiratory failure Current Visit: Yes Status: Acute Plan to address problem: Patient is status post respiratory failure, currently breathing comfortably on room air. (2) Dilated cardiomyopathy Current Visit: Yes Status: Acute Plan to address problem: Will resume guideline directed medical therapy as tolerated for chronic systolic left ventricular dysfunction. (3) H/O mechanical aortic valve replacement Current Visit: Yes Status: Acute Plan to address problem: Patient has mechanical mitral and aortic valve replacements, chronically noncompliant with warfarin. We will resume anticoagulation therapy and aim to restore therapeutic INR levels prior to hospital discharge. Resumption of anticoagulation should be judicious, in the setting of recent rib fractures and rectus sheath hematoma. Subjective Date of service: 02/05/22 Principal diagnosis: Altered mental status, respiratory failure Interval history: Patient was successfully extubated, breathing comfortably on room air. On range manager, there is a ventricular paced rhythm at 70. Blood pressure is 130 systolic. Objective Vital Signs Temp Pulse Pulse Pulse Resp BP Pulse Ox 02/05/22 13:00 70 17 83/53 95 02/05/22 12:00 97.6 F 70 70 17 105/47 96 02/05/22 11:00 70 16 111/69 98 02/05/22 10:00 70 14 130/60 92 02/05/22 09:01 70 16 132/57 94 02/05/22 08:47 100 02/05/22 08:00 97.5 F L 70 70 13 132/57 100 02/05/22 07:01 71 17 140/50 100 02/05/22 06:00 70 15 122/83 98 02/05/22 05:00 70 13 134/58 100 02/05/22 04:01 70 16 92/65 96 02/05/22 04:00 98.2 F 70 16 95 02/05/22 03:04 70 02/05/22 03:00 70 13 114/73 98 02/05/22 02:00 70 13 118/63 97 02/05/22 01:00 70 12 116/63 95 02/05/22 00:19 70 14 127/74 98 02/05/22 00:00 98.8 F 70 12 127/74 97 02/04/22 23:37 70 70 14 133/77 98 02/04/22 23:00 70 10 L 127/68 96 02/04/22 22:00 70 11 L 124/65 86 02/04/22 21:00 70 10 L 123/60 91 02/04/22 20:38 97 02/04/22 20:00 70 70 70 16 126/66 95 02/04/22 19:57 97.9 F 02/04/22 19:00 70 70 11 L 126/51 94 02/04/22 18:00 70 9 L 141/60 91 02/04/22 17:51 70 14 129/70 91 02/04/22 17:44 70 02/04/22 17:41 70 9 L 129/70 92 02/04/22 17:30 70 12 129/70 97 02/04/22 17:21 70 11 L 127/69 92 02/04/22 17:11 70 10 L 127/69 80 L 02/04/22 17:00 70 12 127/69 92 02/04/22 16:51 70 12 120/85 91 02/04/22 16:41 70 12 120/85 89 02/04/22 16:30 70 14 120/85 94 02/04/22 16:21 70 15 119/88 96 02/04/22 16:11 70 11 L 119/88 99 02/04/22 16:00 97 F L 70 70 11 L 119/88 79 L 02/04/22 15:51 70 12 115/66 84 02/04/22 15:41 70 10 L 115/66 98 02/04/22 15:40 70 02/04/22 15:30 70 12 115/66 88 02/04/22 15:21 70 12 123/77 99 02/04/22 15:11 70 9 L 123/77 100 02/04/22 15:00 70 14 123/77 100 02/04/22 14:51 70 11 L 123/73 100 02/04/22 14:41 70 10 L 111/57 100 02/04/22 14:30 70 11 L 111/57 99 02/04/22 14:21 70 11 L 123/73 100 02/04/22 14:11 70 10 L 123/73 99 02/04/22 14:00 70 10 L 123/73 100 - Physical Examination General: No Apparent Distress HEENT: Positive: Other (Pupils fixed) Neck: Positive: neck supple Cardiac: Positive: Reg Rate and Rhythm Lungs: Positive: Decreased Breath Sounds Neuro: Positive: Grossly Intact Abdomen: Positive: Soft Skin: Positive: Clear Extremities: Absent: edema - Labs and Meds Coagulation 02/05/22 Range/Units 09:18 PT 15.0 H (12.2-14.9) Sec. INR 1.06 (0.87-1.13) CBC 02/05/22 Range/Units 05:09 WBC 9.8 (4.5-11.0) K/mm3 RBC 4.79 (3.65-5.03) M/mm3 Hgb 11.9 (10.1-14.3) gm/dl Hct 39.9 (30.3-42.9) % Plt Count 313 (140-440) K/mm3 Comprehensive Metabolic Panel 02/05/22 Range/Units 05:09 Sodium 141 (137-145) mmol/L Potassium 4.6 (3.6-5.0) mmol/L Chloride 102.6 (98-107) mmol/L Carbon Dioxide 22 (22-30) mmol/L BUN 23 H (7-17) mg/dL Creatinine 1.4 H (0.6-1.2) mg/dL Glucose 97 (65-100) mg/dL Calcium 9.4 (8.4-10.2) mg/dL Pacemaker: ventricular pacing w/capt
[2022-02-05] MEDS ORDERED: WARFARIN 2 MG TAB PO SCH ×2 (17:00)
[2022-02-05] MEDS ORDERED: WARFARIN 5 MG TAB PO SCH (17:00)
[2022-02-05] MEDS: DIGOXIN 0.25 MG TAB PO SCH (17:17)
[2022-02-05] MEDS: DOCUSATE SODIUM 100 MG/10 ML ORAL LIQD PO SCH (21:57)
[2022-02-05] MEDS: SENNOSIDES ORAL LIQD 8.8 MG/5 ML ORAL LIQD PO SCH (22:05)
[2022-02-06] MEDS: HEPARIN/ 0.45% NACL DRIP 25,000 UNIT/500 ML BAG IV SCH ×2 (03:40→22:38)
[2022-02-06] MEDS: FUROSEMIDE 40 MG/4 ML INJ IV SCH (05:33)
[2022-02-06 06:41] LABS: BUN/Creatinine Ratio 19; Blood Urea Nitrogen 29 mg/dL (7-17); Calcium 8.9 mg/dL (8.4-10.2); Hemolysis Index 284; INR 1.11 (0.87-1.13)
[2022-02-06 06:47] LABS: Hemoglobin 10.7 gm/dl (10.1-14.3); Mean Corpuscular Volume 82 fl (79-97); Red Blood Count 4.36 M/mm3 (3.65-5.03)
[2022-02-06 06:48] LABS: Mean Corpuscular HGB Conc 30 % (30-34); Platelet Count 322 K/mm3 (140-440); Red Cell Distribution Width 19.1 % (13.2-15.2)
[2022-02-06 09:02] LABS: Calcium 8.8 mg/dL (8.4-10.2)
[2022-02-06] MEDS: DOCUSATE SODIUM 100 MG/10 ML ORAL LIQD PO SCH ×2 (09:48→22:00)
[2022-02-06] MEDS: FAMOTIDINE 10 MG TAB PO SCH ×2 (09:48→22:32)
[2022-02-06] MEDS: GABAPENTIN 300 MG CAP PO SCH ×3 (09:48→22:32)
[2022-02-06] MEDS: LISINOPRIL 10 MG TAB PO SCH (09:49)
[2022-02-06] MEDS: METOPROLOL TARTRATE 50 MG TAB PO SCH ×2 (09:49→22:32)
[2022-02-06] MEDS: SPIRONOLACTONE 25 MG TAB PO SCH (09:50)
--- NOTE | 2022-02-06 09:55 | Progress Note ---
Assessment and Plan 56 y/o female admitted with altered mental state and acute respiratory failure. 02/06/22: Wean FiO2 to off. Needs outpatient follow up for Polysomnogram as she has no diagnosis that would cover NIV out of hospital. Can see Allen Ward or Kw[facility]. Will see as needed. Call if questions. 02/05/22: Pulm status stable on nasal cannula. No distress noted and no further episodes of stridor. Stable for transfer to the floor. 02/04/22: Attempt extubation today. Restart lasix and give IV dose prior to extubation. Bipap order for QHS and PRN given her degree of heart failure, she could have central ELVIRA. Continue anticoagulation. 1. Wean sedation as tolerated 2. SBT and awakening trials daily 3. Volume removal 4. Heparin for mechanical valve as INR is subtherapeutic 5. BP control CCT 31 minutes. Subjective Date of service: 02/06/22 Principal diagnosis: Altered mental status, respiratory failure Interval history: Successful transfer to [facility]. Breathing is stable. Good sats documented on 2 liters. Wore NIV again last night. Objective Vital Signs - 12hr 02/06/22 02/06/22 02/06/22 02:39 05:25 08:04 Temperature 97.7 F 98.7 F 98.6 F Pulse Rate 70 70 68 Respiratory 16 16 18 Rate Blood Pressure Blood Pressure 122/60 114/53 108/58 [Left] O2 Sat by Pulse 99 100 97 Oximetry 02/06/22 02/06/22 09:49 09:50 Temperature Pulse Rate 70 Respiratory Rate Blood Pressure 108/58 Blood Pressure [Left] O2 Sat by Pulse Oximetry CBC and BMP: 02/06/22 06:03 02/06/22 08:08 ABG, PT/INR, D-dimer: ABG ABG pH 7.380 pH Units (7.350-7.450) 02/04/22 05:35 ABG pCO2 48.6 mm Hg 02/04/22 05:35 ABG pO2 67.0 mm Hg (80.0-90.0) L 02/04/22 05:35 ABG O2 Saturation 93.8 % (95.0-99.0) L 02/04/22 05:35 PT/INR, D-dimer PT 15.6 Sec. (12.2-14.9) H 02/06/22 06:03 INR 1.11 (0.87-1.13) 02/06/22 06:03 Abnormal lab findings: Abnormal Labs 02/01/22 02/01/22 02/02/22 21:59 21:59 07:50 MCH 25 L RDW 19.0 H Lymph % (Auto) [place] % (Auto) 7.4 H Lymph # (Auto) 0.9 L Seg Neutrophils % 76.0 H PT 16.3 H INR 1.17 H Heparin Anti-Xa Level ABG pO2 ABG HCO3 ABG O2 Saturation ABG Hemoglobin Oxyhemoglobin Potassium 3.0 L BUN Creatinine POC Glucose Total Bilirubin 2.30 H ALT 6 L Troponin T C-Reactive Protein NT-Pro-B Natriuret Pep Total Protein 8.3 H Albumin 3.5 L HDL Cholesterol Salicylates Acetaminophen 02/02/22 02/02/22 02/02/22 07:50 07:50 08:07 MCH RDW Lymph % (Auto) [place] % (Auto) Lymph # (Auto) Seg Neutrophils % PT INR Heparin Anti-Xa Level ABG pO2 ABG HCO3 ABG O2 Saturation ABG Hemoglobin Oxyhemoglobin Potassium BUN Creatinine POC Glucose Total Bilirubin ALT Troponin T 0.077 H C-Reactive Protein NT-Pro-B Natriuret Pep 3678 H Total Protein Albumin HDL Cholesterol 38 L Salicylates < 0.3 L Acetaminophen 5.0 L 02/02/22 02/02/22 02/02/22 10:30 12:42 18:37 MCH RDW Lymph % (Auto) [place] % (Auto) Lymph # (Auto) Seg Neutrophils % PT INR Heparin Anti-Xa Level 0.10 L ABG pO2 153.8 H ABG HCO3 26.5 H ABG O2 Saturation ABG Hemoglobin 10.9 L Oxyhemoglobin Potassium BUN Creatinine POC Glucose 69 L Total Bilirubin ALT Troponin T C-Reactive Protein NT-Pro-B Natriuret Pep Total Protein Albumin HDL Cholesterol Salicylates Acetaminophen 02/02/22 02/03/22 02/03/22 23:24 03:57 03:57 MCH 25 L RDW 18.7 H Lymph % (Auto) 13.1 L [place] % (Auto) 10.6 H Lymph # (Auto) 0.9 L Seg Neutrophils % 71.7 H PT INR Heparin Anti-Xa Level ABG pO2 ABG HCO3 ABG O2 Saturation ABG Hemoglobin Oxyhemoglobin Potassium 3.3 L BUN Creatinine POC Glucose 60 L Total Bilirubin ALT Troponin T 0.094 H C-Reactive Protein NT-Pro-B Natriuret Pep Total Protein Albumin HDL Cholesterol Salicylates Acetaminophen 02/03/22 02/03/22 02/03/22 04:20 11:31 17:25 MCH RDW Lymph % (Auto) [place] % (Auto) Lymph # (Auto) Seg Neutrophils % PT INR Heparin Anti-Xa Level ABG pO2 ABG HCO3 26.6 H ABG O2 Saturation ABG Hemoglobin 11.3 L Oxyhemoglobin 94.8 L Potassium BUN Creatinine POC Glucose 113 H Total Bilirubin ALT Troponin T 0.092 H C-Reactive Protein 6.20 H NT-Pro-B Natriuret Pep Total Protein Albumin HDL Cholesterol Salicylates Acetaminophen 02/04/22 02/04/22 02/04/22 04:32 04:32 05:35 MCH 25 L RDW 18.6 H Lymph % (Auto) [place] % (Auto) Lymph # (Auto) Seg Neutrophils % PT INR Heparin Anti-Xa Level ABG pO2 67.0 L ABG HCO3 28.1 H ABG O2 Saturation 93.8 L ABG Hemoglobin 11.2 L Oxyhemoglobin 91.7 L Potassium BUN 19 H Creatinine 1.3 H POC Glucose Total Bilirubin ALT Troponin T C-Reactive Protein NT-Pro-B Natriuret Pep Total Protein Albumin HDL Cholesterol Salicylates Acetaminophen 02/04/22 02/04/22 02/05/22 17:37 20:51 05:09 MCH 25 L RDW 18.8 H Lymph % (Auto) [place] % (Auto) Lymph # (Auto) Seg Neutrophils % PT INR Heparin Anti-Xa Level < 0.10 L ABG pO2 ABG HCO3 ABG O2 Saturation ABG Hemoglobin Oxyhemoglobin Potassium BUN Creatinine POC Glucose 157 H Total Bilirubin ALT Troponin T C-Reactive Protein NT-Pro-B Natriuret Pep Total Protein Albumin HDL Cholesterol Salicylates Acetaminophen 02/05/22 02/05/22 02/05/22 05:09 05:09 09:18 MCH RDW Lymph % (Auto) [place] % (Auto) Lymph # (Auto) Seg Neutrophils % PT INR Heparin Anti-Xa Level 1.40 H < 0.10 L ABG pO2 ABG HCO3 ABG O2 Saturation ABG Hemoglobin Oxyhemoglobin Potassium BUN 23 H Creatinine 1.4 H POC Glucose Total Bilirubin ALT Troponin T C-Reactive Protein NT-Pro-B Natriuret Pep Total Protein Albumin HDL Cholesterol Salicylates Acetaminophen 02/05/22 02/05/22 02/06/22 09:18 13:28 06:03 MCH RDW Lymph % (Auto) [place] % (Auto) Lymph # (Auto) Seg Neutrophils % PT 15.0 H INR Heparin Anti-Xa Level 0.94 H ABG pO2 ABG HCO3 ABG O2 Saturation ABG Hemoglobin Oxyhemoglobin Potassium BUN 29 H Creatinine 1.5 H POC Glucose Total Bilirubin ALT Troponin T C-Reactive Protein NT-Pro-B Natriuret Pep Total Protein Albumin HDL Cholesterol Salicylates Acetaminophen 02/06/22 02/06/22 02/06/22 06:03 06:03 08:08 MCH 25 L RDW 19.1 H Lymph % (Auto) [place] % (Auto) Lymph # (Auto) Seg Neutrophils % PT 15.6 H INR Heparin Anti-Xa Level ABG pO2 ABG HCO3 ABG O2 Saturation ABG Hemoglobin Oxyhemoglobin Potassium BUN 29 H Creatinine 1.5 H POC Glucose Total Bilirubin ALT Troponin T C-Reactive Protein NT-Pro-B Natriuret Pep Total Protein Albumin HDL Cholesterol Salicylates Acetaminophen
--- NOTE | 2022-02-06 11:38 | Electrocardiograph Report ---
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
--- NOTE | 2022-02-06 11:38 | Progress Note ---
Assessment and Plan - Patient Problems (1) Respiratory failure Current Visit: Yes Status: Acute Plan to address problem: Patient is status post respiratory failure, currently breathing comfortably on room air. (2) Dilated cardiomyopathy Current Visit: Yes Status: Acute Plan to address problem: Will resume guideline directed medical therapy as tolerated for chronic systolic left ventricular dysfunction. (3) H/O mechanical aortic valve replacement Current Visit: Yes Status: Acute Plan to address problem: Patient has mechanical mitral and aortic valve replacements, chronically noncompliant with warfarin. Patient is currently on bridge therapy, warfarin has been resumed for mechanical valve anticoagulation. Anticoagulation regimen should be managed judiciously due to recent diagnosis of rectal sheath hematoma. Subjective Date of service: 02/06/22 Principal diagnosis: Altered mental status, respiratory failure Interval history: Patient is comfortable, no new cardiac complaints, no new cardiac events reported. Objective Vital Signs Temp Pulse Pulse Resp BP BP Pulse Ox 02/06/22 09:50 108/58 02/06/22 09:49 70 02/06/22 08:04 98.6 F 68 18 108/58 97 02/06/22 05:25 98.7 F 70 16 114/53 100 02/06/22 02:39 97.7 F 70 16 122/60 99 02/05/22 21:06 98.2 F 70 16 111/54 99 02/05/22 20:00 70 17 96 02/05/22 15:01 70 12 115/51 93 02/05/22 14:00 70 15 119/47 91 02/05/22 13:00 70 17 83/53 95 02/05/22 12:00 97.6 F 70 70 17 105/47 96 - Physical Examination General: No Apparent Distress HEENT: Positive: Other (Pupils fixed) Neck: Positive: neck supple Cardiac: Positive: Reg Rate and Rhythm, Systolic Murmur Lungs: Positive: Decreased Breath Sounds Neuro: Positive: Grossly Intact Abdomen: Positive: Soft Skin: Positive: Clear Extremities: Absent: edema - Labs and Meds Coagulation 02/05/22 02/06/22 Range/Units 09:18 06:03 PT 15.0 H 15.6 H (12.2-14.9) Sec. INR 1.06 1.11 (0.87-1.13) CBC 02/06/22 Range/Units 06:03 WBC 6.9 (4.5-11.0) K/mm3 RBC 4.36 (3.65-5.03) M/mm3 Hgb 10.7 (10.1-14.3) gm/dl Hct 36.0 (30.3-42.9) % Plt Count 322 (140-440) K/mm3 Comprehensive Metabolic Panel 02/06/22 02/06/22 Range/Units 06:03 08:08 Sodium TNR 140 Potassium TNR 4.2 Chloride TNR 105.8 Carbon Dioxide 24 25 (22-30) mmol/L BUN 29 H 29 H (7-17) mg/dL Creatinine 1.5 H 1.5 H (0.6-1.2) mg/dL Glucose 93 94 (65-100) mg/dL Calcium 8.9 8.8 (8.4-10.2) mg/dL Pacemaker: ventricular pacing w/capt
--- NOTE | 2022-02-06 13:01 | Progress Note ---
Assessment and Plan This is a 56-year-old female with known past medical history of COPD, HTN, HLD, mechanical mitral and aortic valves replacement, CHF, nonischemic cardiomyopathy s/p AICD, and chronic atrial fibrillation, noncompliant with anticoagulation a dmitted for AMS and acute hypoxic respiratory failure requiring ventilatory Hospital Course to Date: 02/03: Stable on the vent, sedation initiated overnight due to increase agitation. Wean sedation as tolerated, plan for possible SAT/SBT tomorrow. Blood culture positive GPC in 1 out 4 bottles, empiric IV antibiotics- Vanco initiated overnight. Patient remains afebrile, WBCs wnr, BP bordeline this am probably secondary to sedation. Continue empiric IV Abx for now, repeat Blood cultures, and will also check a procal. Periods of hypoglycemia overnight, TF at goal this am, continue BG check and hypoglycemic protocol. Patient remains on IV lasix BID, monitor renal function and electrolytes, replete as needed. 02/04: Remains on thevent on low dose sedation today,fentanyl at 1mcg. Following simple commands. This am ABG and CXR noted, IV lasix held due to low BP. Mild increase in scr this am, probably due to hypoperfusion, resume lasix and continue to monitor renal function. Plan for possible extubation today, BIPAP at night and PRN post extubation. 02/05: s/p extubation, stable on 4L NC. Continue Nebs treatment and O2 supplementation, wean as tolerated for SPO2 goal above 90%. Bipap at night. Patient remains afebrile with no leukocytosis, repeat blood culture are with NGTD, Procal 0.47. IV Vanco D/C. Renal function continue to worsen, Scr. 1.4 this am. IV lasix reduced to qday, continue to monitor renal function for now. Patient remains on heparin gtt, plan to bridge to PO coumadin today, goal INR 2.5-3.5. PT/INR pending. D/C CCM patient is stable for transfer to telemetry. 02/06: wean off supplemental O2, PT eval, Cr trending up - follow BMP. Patient r emains on heparin drip to bridge with Coumadin, follow INR Assessment and Plan #Acute Hypoxic Respiratory Failure #Pulmonary edema #H/o COPD -Intubated in the ED on 02/02 fir airway protection -Chest x-ray reviewed, suggestive of pulmonary edema -likely secondary to CHF exacerbation -02/04 s/p extubation -Now stable on 4L NC -CCM consulted, appreciate recommendations -Continue IV lasix and Nebs treatment as needed -Aspiration precaution HOB above 30 -Continue O2 supplementation and wean as tolerated -Continue SPO2 monitoring for SPO2 goal above 90% -Bipap at night #Acute on chronic heart failure with reduced ejection fraction #Dilated nonischemic Cardiomyopathy s/p AICD #Chronic Atrial fibrillation #h/o mechanical aortic and mitral valves #Noncompliant with Anticoagulation -TTE 10/2021: LVEF 30-35% -NTproBNP 3678, elevated Troponin X2 most like type 2 -Patient is Vpacing on the monitor, HR 70 -restarted aldactone, digoxin, metoprolol and lisinopril at home doses -IV lasix reduced to qday due to worsen renal function -Continue blood pressure monitor per protocol -Maintain MAP above 65 -Cardiology also consulted -patient was prescribed warfarin in the past, likely non-compliant given multiple subtheraputic INRs (current INR 1.17) -continue heparin gtt for now- bridge to coumadin today -goal INR 2.5-3.5 #Acute Metabolic Encephalopathy-resolved -CT head negative for acute abnormality -UA unremarkable -Avoid benzodiazepine to reduce the possibility of delirium -PRN Analgesia for pain control -Maintenance of sleep-wake cycle #Positive Blood Culture -Blood culture + GPC in 1 out 4 bottles, probable cross contamination -Chest x-ray reviewed, suggestive of pulmonary edema -UA is unremarkable, sputum culture pending -Patient is afebrile, WBCs wnr -Repeat Blood cultures NGTD -Procal 0.47 -IV Vanco D/C -Continue to F/U on cultures -Daily CBC monitor -Consider ID consult if febrile or/and if leukocytosis occur #Rectus sheath hematoma #Rib fractures -seen on previous imaging on 01/31 ER visit -Most likely due to some sort of injury/fall -General surgery consulted, assistance appreciated -No plan for any surgical intervention at this time -On heparin gtt per protcol -H&H remains stable -Close monitoring of s/s of active bleeding #Hypoglycemia-improved -Low BG overnight, resolved this am -Enteral nutrition at goal this am -Continue BG check Q6hrs -Avoid Hypoglycemia -Continue Hypoglycemic protocol #Hypokalemia-improved -Patient is on IV lasix -K repleted -Monitor and replace electrolytes as needed #Hyperlipidemia -continue statin at home dose #GI/DVT Prophylaxis -PPI- Pepcid -Heparin gtt-bridging to coumadin Subjective Date of service: 02/06/22 Principal diagnosis: Altered mental status, respiratory failure Interval history: Patient seen and examined. Medical records and medication list reviewed. No acute event overnight noted by the RN. Patient remains on nasal cannula O2. Patient is tolerating diet. H&H stable Discussed plan of care at bedside with patient. Objective - Exam Narrative Exam: General appearance: Present: no acute distress, obese - EENT Eyes: Present: PERRL, EOM intact ENT: hearing intact - Neck Neck: Present: normal ROM - Respiratory Respiratory effort: normal Respiratory: bilateral: wheezing - Cardiovascular Rhythm: regular Heart Sounds: Present: S1 & S2 - Extremities Extremities: no ischemia, pulses intact, pulses symmetrical Extremity abnormal: edema - Peripheral Assessment Generalized Edema Type: Non-pitting Edema Degree: 2+ Capillary Refill: < 3 seconds Skin Temperature: Warm Peripheral Pulses: within normal limits - Abdominal General gastrointestinal: soft, non-distended, normal bowel sounds - Integumentary Integumentary: Present: clear, warm, dry - Psychiatric Psychiatric: appropriate mood/affect, cooperative - Neurologic Neurologic: CNII-XII intact, moves all extremities, other (AAOX 3 ) - Constitutional Vitals: Vital Signs - 12hr 02/06/22 02/06/22 02/06/22 02:39 05:25 08:04 Temperature 97.7 F 98.7 F 98.6 F Pulse Rate 70 70 68 Respiratory 16 16 18 Rate Blood Pressure Blood Pressure 122/60 114/53 108/58 [Left] O2 Sat by Pulse 99 100 97 Oximetry 02/06/22 02/06/22 02/06/22 09:49 09:50 12:15 Temperature 98.6 F Pulse Rate 70 72 Respiratory 16 Rate Blood Pressure 108/58 Blood Pressure 108/56 [Left] O2 Sat by Pulse 98 Oximetry - Labs CBC & Chem 7: 02/06/22 06:03 02/07/22 10:38 Labs: Abnormal lab results 02/05/22 02/06/22 02/06/22 Range/Units 13:28 06:03 06:03 MCH (28-32) pg RDW (13.2-15.2) % PT 15.6 H (12.2-14.9) Sec. Heparin Anti-Xa Level 0.94 H (0.3-0.7) U.I./ml BUN 29 H (7-17) mg/dL Creatinine 1.5 H (0.6-1.2) mg/dL 02/06/22 02/06/22 Range/Units 06:03 08:08 MCH 25 L (28-32) pg RDW 19.1 H (13.2-15.2) % PT (12.2-14.9) Sec. Heparin Anti-Xa Level (0.3-0.7) U.I./ml BUN 29 H (7-17) mg/dL Creatinine 1.5 H (0.6-1.2) mg/dL HEART Score - HEART Score Troponin: Troponin T 0.092 ng/mL (0.00-0.029) H 02/03/22 11:31
--- NOTE | 2022-02-06 13:45 | Progress Note ---
Assessment and Plan - Patient Problems (1) Rectus sheath hematoma Current Visit: Yes Status: Acute Plan to address problem: 1) Stable. I will sign off. Please call me if further questions arise. Subjective Date of service: 02/06/22 Patient Reports: Positive: no new complaints Objective Vital Signs - 12hr 02/06/22 02/06/22 02/06/22 02:39 05:25 08:04 Temperature 97.7 F 98.7 F 98.6 F Pulse Rate 70 70 68 Respiratory 16 16 18 Rate Blood Pressure Blood Pressure 122/60 114/53 108/58 [Left] O2 Sat by Pulse 99 100 97 Oximetry 02/06/22 02/06/22 02/06/22 09:49 09:50 12:15 Temperature 98.6 F Pulse Rate 70 72 Respiratory 16 Rate Blood Pressure 108/58 Blood Pressure 108/56 [Left] O2 Sat by Pulse 98 Oximetry - Abdomen other (No change in RUQ hematoma) - Labs 02/06/22 06:03 02/06/22 08:08 Diabetes panel 02/06/22 02/06/22 Range/Units 06:03 08:08 Sodium TNR 140 Potassium TNR 4.2 Chloride TNR 105.8 Carbon Dioxide 24 25 (22-30) mmol/L BUN 29 H 29 H (7-17) mg/dL Creatinine 1.5 H 1.5 H (0.6-1.2) mg/dL Glucose 93 94 (65-100) mg/dL Calcium 8.9 8.8 (8.4-10.2) mg/dL Calcium panel 02/06/22 02/06/22 Range/Units 06:03 08:08 Calcium 8.9 8.8 (8.4-10.2) mg/dL Pituitary panel 02/06/22 02/06/22 Range/Units 06:03 08:08 Sodium TNR 140 Potassium TNR 4.2 Chloride TNR 105.8 Carbon Dioxide 24 25 (22-30) mmol/L BUN 29 H 29 H (7-17) mg/dL Creatinine 1.5 H 1.5 H (0.6-1.2) mg/dL Glucose 93 94 (65-100) mg/dL Calcium 8.9 8.8 (8.4-10.2) mg/dL Adrenal panel 02/06/22 02/06/22 Range/Units 06:03 08:08 Sodium TNR 140 Potassium TNR 4.2 Chloride TNR 105.8 Carbon Dioxide 24 25 (22-30) mmol/L BUN 29 H 29 H (7-17) mg/dL Creatinine 1.5 H 1.5 H (0.6-1.2) mg/dL Glucose 93 94 (65-100) mg/dL Calcium 8.9 8.8 (8.4-10.2) mg/dL
[2022-02-06] MEDS ORDERED: WARFARIN 2 MG TAB PO SCH (17:00)
[2022-02-06] MEDS: DIGOXIN 0.25 MG TAB PO SCH (17:36)
[2022-02-06] MEDS: SENNOSIDES ORAL LIQD 8.8 MG/5 ML ORAL LIQD PO SCH (22:00)
[2022-02-06] MEDS: ACETAMINOPHEN 325 MG TAB PO PRN (22:32)
[2022-02-07] MEDS: FUROSEMIDE 40 MG/4 ML INJ IV SCH (05:22)
[2022-02-07 05:31] LABS: INR 1.16 (0.87-1.13)
[2022-02-07] MEDS: ACETAMINOPHEN 325 MG TAB PO PRN (09:32)
[2022-02-07] MEDS: GABAPENTIN 300 MG CAP PO SCH ×3 (09:32→22:00)
[2022-02-07] MEDS: METOPROLOL TARTRATE 50 MG TAB PO SCH ×2 (10:33→22:00)
[2022-02-07] MEDS: FAMOTIDINE 10 MG TAB PO SCH ×2 (10:33→21:58)
[2022-02-07] MEDS: LISINOPRIL 10 MG TAB PO SCH (10:33)
[2022-02-07] MEDS: DOCUSATE SODIUM 100 MG/10 ML ORAL LIQD PO SCH ×2 (10:33→22:00)
[2022-02-07] MEDS: SPIRONOLACTONE 25 MG TAB PO SCH (10:33)
--- NOTE | 2022-02-07 10:58 | Progress Note ---
Assessment and Plan 56 y/o female admitted with altered mental state and acute respiratory failure. 02/07/22: No weaning of FIO2 being done. Will need walk test prior to discharge to assess O2 needs if any. Will see PRN over the weekend. 02/06/22: Wean FiO2 to off. Needs outpatient follow up for Polysomnogram as she has no diagnosis that would cover NIV out of hospital. Can see Sonu Ward or Kw[facility]. Will see as needed. Call if questions. 02/05/22: Pulm status stable on nasal cannula. No distress noted and no further episodes of stridor. Stable for transfer to the floor. 02/04/22: Attempt extubation today. Restart lasix and give IV dose prior to extubation. Bipap order for QHS and PRN given her degree of heart failure, she could have central ELVIRA. Continue anticoagulation. 1. Wean sedation as tolerated 2. SBT and awakening trials daily 3. Volume removal 4. Heparin for mechanical valve as INR is subtherapeutic 5. BP control CCT 31 minutes. Subjective Date of service: 02/07/22 Principal diagnosis: Altered mental status, respiratory failure Interval history: No acute events. INR still not therapeutic. Currently on 3 liters with good sats. Objective Vital Signs - 12hr 02/07/22 02/07/22 02/07/22 01:13 03:04 09:33 Temperature 98.2 F 98.3 F Pulse Rate 72 73 Respiratory 18 22 Rate Blood Pressure 128/58 Blood Pressure 151/63 [Right] O2 Sat by Pulse 91 100 96 Oximetry 02/07/22 10:00 Temperature Pulse Rate Respiratory Rate Blood Pressure Blood Pressure [Right] O2 Sat by Pulse 95 Oximetry CBC and BMP: 02/06/22 06:03 02/06/22 08:08 ABG, PT/INR, D-dimer: ABG ABG pH 7.380 pH Units (7.350-7.450) 02/04/22 05:35 ABG pCO2 48.6 mm Hg 02/04/22 05:35 ABG pO2 67.0 mm Hg (80.0-90.0) L 02/04/22 05:35 ABG O2 Saturation 93.8 % (95.0-99.0) L 02/04/22 05:35 PT/INR, D-dimer PT 16.1 Sec. (12.2-14.9) H 02/07/22 04:50 INR 1.16 (0.87-1.13) H 02/07/22 04:50 Abnormal lab findings: Abnormal Labs 02/01/22 02/01/22 02/02/22 21:59 21:59 07:50 MCH 25 L RDW 19.0 H Lymph % (Auto) [place] % (Auto) 7.4 H Lymph # (Auto) 0.9 L Seg Neutrophils % 76.0 H PT 16.3 H INR 1.17 H Heparin Anti-Xa Level ABG pO2 ABG HCO3 ABG O2 Saturation ABG Hemoglobin Oxyhemoglobin Potassium 3.0 L BUN Creatinine POC Glucose Total Bilirubin 2.30 H ALT 6 L Troponin T C-Reactive Protein NT-Pro-B Natriuret Pep Total Protein 8.3 H Albumin 3.5 L HDL Cholesterol Salicylates Acetaminophen 02/02/22 02/02/22 02/02/22 07:50 07:50 08:07 MCH RDW Lymph % (Auto) [place] % (Auto) Lymph # (Auto) Seg Neutrophils % PT INR Heparin Anti-Xa Level ABG pO2 ABG HCO3 ABG O2 Saturation ABG Hemoglobin Oxyhemoglobin Potassium BUN Creatinine POC Glucose Total Bilirubin ALT Troponin T 0.077 H C-Reactive Protein NT-Pro-B Natriuret Pep 3678 H Total Protein Albumin HDL Cholesterol 38 L Salicylates < 0.3 L Acetaminophen 5.0 L 02/02/22 02/02/22 02/02/22 10:30 12:42 18:37 MCH RDW Lymph % (Auto) [place] % (Auto) Lymph # (Auto) Seg Neutrophils % PT INR Heparin Anti-Xa Level 0.10 L ABG pO2 153.8 H ABG HCO3 26.5 H ABG O2 Saturation ABG Hemoglobin 10.9 L Oxyhemoglobin Potassium BUN Creatinine POC Glucose 69 L Total Bilirubin ALT Troponin T C-Reactive Protein NT-Pro-B Natriuret Pep Total Protein Albumin HDL Cholesterol Salicylates Acetaminophen 02/02/22 02/03/22 02/03/22 23:24 03:57 03:57 MCH 25 L RDW 18.7 H Lymph % (Auto) 13.1 L [place] % (Auto) 10.6 H Lymph # (Auto) 0.9 L Seg Neutrophils % 71.7 H PT INR Heparin Anti-Xa Level ABG pO2 ABG HCO3 ABG O2 Saturation ABG Hemoglobin Oxyhemoglobin Potassium 3.3 L BUN Creatinine POC Glucose 60 L Total Bilirubin ALT Troponin T 0.094 H C-Reactive Protein NT-Pro-B Natriuret Pep Total Protein Albumin HDL Cholesterol Salicylates Acetaminophen 02/03/22 02/03/22 02/03/22 04:20 11:31 17:25 MCH RDW Lymph % (Auto) [place] % (Auto) Lymph # (Auto) Seg Neutrophils % PT INR Heparin Anti-Xa Level ABG pO2 ABG HCO3 26.6 H ABG O2 Saturation ABG Hemoglobin 11.3 L Oxyhemoglobin 94.8 L Potassium BUN Creatinine POC Glucose 113 H Total Bilirubin ALT Troponin T 0.092 H C-Reactive Protein 6.20 H NT-Pro-B Natriuret Pep Total Protein Albumin HDL Cholesterol Salicylates Acetaminophen 02/04/22 02/04/22 02/04/22 04:32 04:32 05:35 MCH 25 L RDW 18.6 H Lymph % (Auto) [place] % (Auto) Lymph # (Auto) Seg Neutrophils % PT INR Heparin Anti-Xa Level ABG pO2 67.0 L ABG HCO3 28.1 H ABG O2 Saturation 93.8 L ABG Hemoglobin 11.2 L Oxyhemoglobin 91.7 L Potassium BUN 19 H Creatinine 1.3 H POC Glucose Total Bilirubin ALT Troponin T C-Reactive Protein NT-Pro-B Natriuret Pep Total Protein Albumin HDL Cholesterol Salicylates Acetaminophen 02/04/22 02/04/22 02/05/22 17:37 20:51 05:09 MCH 25 L RDW 18.8 H Lymph % (Auto) [place] % (Auto) Lymph # (Auto) Seg Neutrophils % PT INR Heparin Anti-Xa Level < 0.10 L ABG pO2 ABG HCO3 ABG O2 Saturation ABG Hemoglobin Oxyhemoglobin Potassium BUN Creatinine POC Glucose 157 H Total Bilirubin ALT Troponin T C-Reactive Protein NT-Pro-B Natriuret Pep Total Protein Albumin HDL Cholesterol Salicylates Acetaminophen 02/05/22 02/05/22 02/05/22 05:09 05:09 09:18 MCH RDW Lymph % (Auto) [place] % (Auto) Lymph # (Auto) Seg Neutrophils % PT INR Heparin Anti-Xa Level 1.40 H < 0.10 L ABG pO2 ABG HCO3 ABG O2 Saturation ABG Hemoglobin Oxyhemoglobin Potassium BUN 23 H Creatinine 1.4 H POC Glucose Total Bilirubin ALT Troponin T C-Reactive Protein NT-Pro-B Natriuret Pep Total Protein Albumin HDL Cholesterol Salicylates Acetaminophen 02/05/22 02/05/22 02/06/22 09:18 13:28 06:03 MCH RDW Lymph % (Auto) [place] % (Auto) Lymph # (Auto) Seg Neutrophils % PT 15.0 H INR Heparin Anti-Xa Level 0.94 H ABG pO2 ABG HCO3 ABG O2 Saturation ABG Hemoglobin Oxyhemoglobin Potassium BUN 29 H Creatinine 1.5 H POC Glucose Total Bilirubin ALT Troponin T C-Reactive Protein NT-Pro-B Natriuret Pep Total Protein Albumin HDL Cholesterol Salicylates Acetaminophen 02/06/22 02/06/22 02/06/22 06:03 06:03 08:08 MCH 25 L RDW 19.1 H Lymph % (Auto) [place] % (Auto) Lymph # (Auto) Seg Neutrophils % PT 15.6 H INR Heparin Anti-Xa Level ABG pO2 ABG HCO3 ABG O2 Saturation ABG Hemoglobin Oxyhemoglobin Potassium BUN 29 H Creatinine 1.5 H POC Glucose Total Bilirubin ALT Troponin T C-Reactive Protein NT-Pro-B Natriuret Pep Total Protein Albumin HDL Cholesterol Salicylates Acetaminophen 02/07/22 04:50 MCH RDW Lymph % (Auto) [place] % (Auto) Lymph # (Auto) Seg Neutrophils % PT 16.1 H INR 1.16 H Heparin Anti-Xa Level ABG pO2 ABG HCO3 ABG O2 Saturation ABG Hemoglobin Oxyhemoglobin Potassium BUN Creatinine POC Glucose Total Bilirubin ALT Troponin T C-Reactive Protein NT-Pro-B Natriuret Pep Total Protein Albumin HDL Cholesterol Salicylates Acetaminophen
--- NOTE | 2022-02-07 13:06 | Progress Note ---
Assessment and Plan - Patient Problems (1) Respiratory failure Current Visit: Yes Status: Acute Plan to address problem: Patient is status post respiratory failure, currently breathing comfortably on room air. (2) Dilated cardiomyopathy Current Visit: Yes Status: Acute Plan to address problem: Will resume guideline directed medical therapy as tolerated for chronic systolic left ventricular dysfunction. (3) H/O mechanical aortic valve replacement Current Visit: Yes Status: Acute Plan to address problem: Patient has mechanical mitral and aortic valve replacements, chronically noncompliant with warfarin. Patient is currently on bridge therapy, warfarin has been resumed for mechanical valve anticoagulation. Anticoagulation regimen should be managed judiciously due to recent diagnosis of rectal sheath hematoma. Subjective Date of service: 02/07/22 Principal diagnosis: Altered mental status, respiratory failure Interval history: Patient is comfortable, no acute distress, no cardiac complaints. Her major complaint today is low back pain. INR is still subtherapeutic, and she remains on intravenous heparin bridge therapy. Objective Vital Signs Temp Pulse Resp BP BP BP Pulse Ox 02/07/22 10:00 95 02/07/22 09:33 98.3 F 73 22 151/63 96 02/07/22 03:04 98.2 F 72 18 128/58 100 02/07/22 01:13 91 02/06/22 20:00 70 02/06/22 19:47 98.7 F 74 18 109/54 91 02/06/22 16:00 98.6 F 71 18 110/46 96 02/06/22 15:58 98.0 F 71 18 110/45 100 - Physical Examination General: No Apparent Distress HEENT: Positive: PERRL Neck: Positive: neck supple Cardiac: Positive: Reg Rate and Rhythm, Systolic Murmur Lungs: Positive: Decreased Breath Sounds Neuro: Positive: Grossly Intact Abdomen: Positive: Soft Skin: Positive: Clear Extremities: Absent: edema - Labs and Meds Coagulation 02/07/22 Range/Units 04:50 PT 16.1 H (12.2-14.9) Sec. INR 1.16 H (0.87-1.13) Pacemaker: ventricular pacing w/capt
[2022-02-07 13:12] LABS: Calcium 9.2 mg/dL (8.4-10.2)
--- NOTE | 2022-02-07 14:56 | Progress Note ---
Assessment and Plan This is a 56-year-old female with known past medical history of COPD, HTN, HLD, mechanical mitral and aortic valves replacement, CHF, nonischemic cardiomyopathy s/p AICD, and chronic atrial fibrillation, noncompliant with anticoagulation a dmitted for AMS and acute hypoxic respiratory failure requiring ventilatory Hospital Course to Date: 02/03: Stable on the vent, sedation initiated overnight due to increase agitation. Wean sedation as tolerated, plan for possible SAT/SBT tomorrow. Blood culture positive GPC in 1 out 4 bottles, empiric IV antibiotics- Vanco initiated overnight. Patient remains afebrile, WBCs wnr, BP bordeline this am probably secondary to sedation. Continue empiric IV Abx for now, repeat Blood cultures, and will also check a procal. Periods of hypoglycemia overnight, TF at goal this am, continue BG check and hypoglycemic protocol. Patient remains on IV lasix BID, monitor renal function and electrolytes, replete as needed. 02/04: Remains on thevent on low dose sedation today,fentanyl at 1mcg. Following simple commands. This am ABG and CXR noted, IV lasix held due to low BP. Mild increase in scr this am, probably due to hypoperfusion, resume lasix and continue to monitor renal function. Plan for possible extubation today, BIPAP at night and PRN post extubation. 02/05: s/p extubation, stable on 4L NC. Continue Nebs treatment and O2 supplementation, wean as tolerated for SPO2 goal above 90%. Bipap at night. Patient remains afebrile with no leukocytosis, repeat blood culture are with NGTD, Procal 0.47. IV Vanco D/C. Renal function continue to worsen, Scr. 1.4 this am. IV lasix reduced to qday, continue to monitor renal function for now. Patient remains on heparin gtt, plan to bridge to PO coumadin today, goal INR 2.5-3.5. PT/INR pending. D/C CCM patient is stable for transfer to telemetry. 02/06: wean off supplemental O2, PT eval, Cr trending up - follow BMP. Patient r emains on heparin drip to bridge with Coumadin, follow INR 02/07: Patient remains subtherapeutic INR. Continue to monitor INR, continue Coumadin along with heparin drip to bridge. Wean off O2 as tolerated. Patient complains of chest pain today, ordered EKG and stat troponin. EKG unremarkable and no change from prior study we will continue to follow troponin Assessment and Plan #Acute Hypoxic Respiratory Failure #Pulmonary edema #H/o COPD -Intubated in the ED on 02/02 fir airway protection -Chest x-ray reviewed, suggestive of pulmonary edema -likely secondary to CHF exacerbation -02/04 s/p extubation -Now stable on 4L NC -CCM consulted, appreciate recommendations -Continue IV lasix and Nebs treatment as needed -Aspiration precaution HOB above 30 -Continue O2 supplementation and wean as tolerated -Continue SPO2 monitoring for SPO2 goal above 90% -Bipap at night #Acute on chronic heart failure with reduced ejection fraction #Dilated nonischemic Cardiomyopathy s/p AICD #Chronic Atrial fibrillation #h/o mechanical aortic and mitral valves #Noncompliant with Anticoagulation -TTE 10/2021: LVEF 30-35% -NTproBNP 3678, elevated Troponin X2 most like type 2 -Patient is Vpacing on the monitor, HR 70 -restarted aldactone, digoxin, metoprolol and lisinopril at home doses -IV lasix reduced to qday due to worsen renal function -Continue blood pressure monitor per protocol -Maintain MAP above 65 -Cardiology also consulted -patient was prescribed warfarin in the past, likely non-compliant given multiple subtheraputic INRs (current INR 1.17) -continue heparin gtt for now- bridge to coumadin today -goal INR 2.5-3.5 #Acute Metabolic Encephalopathy-resolved -CT head negative for acute abnormality -UA unremarkable -Avoid benzodiazepine to reduce the possibility of delirium -PRN Analgesia for pain control -Maintenance of sleep-wake cycle #Positive Blood Culture -Blood culture + GPC in 1 out 4 bottles, probable cross contamination -Chest x-ray reviewed, suggestive of pulmonary edema -UA is unremarkable, sputum culture pending -Patient is afebrile, WBCs wnr -Repeat Blood cultures NGTD -Procal 0.47 -IV Vanco D/C -Continue to F/U on cultures -Daily CBC monitor -Consider ID consult if febrile or/and if leukocytosis occur #Rectus sheath hematoma #Rib fractures -seen on previous imaging on 01/31 ER visit -Most likely due to some sort of injury/fall -General surgery consulted, assistance appreciated -No plan for any surgical intervention at this time -On heparin gtt per protcol -H&H remains stable -Close monitoring of s/s of active bleeding #Hypoglycemia-improved -Low BG overnight, resolved this am -Enteral nutrition at goal this am -Continue BG check Q6hrs -Avoid Hypoglycemia -Continue Hypoglycemic protocol #Hypokalemia-improved -Patient is on IV lasix -K repleted -Monitor and replace electrolytes as needed #Hyperlipidemia -continue statin at home dose #GI/DVT Prophylaxis -PPI- Pepcid -Heparin gtt-bridging to coumadin Subjective Date of service: 02/07/22 Principal diagnosis: Altered mental status, respiratory failure Interval history: Patient seen and examined. Medical records and medication list reviewed. No acute event overnight noted by the RN. Patient remains on nasal cannula O2. Patient is tolerating diet. H&H stable, INR subtherapeutic Discussed plan of care at bedside with patient. Objective - Exam Narrative Exam: General appearance: Present: no acute distress, obese - EENT Eyes: Present: PERRL, EOM intact ENT: hearing intact - Neck Neck: Present: normal ROM - Respiratory Respiratory effort: normal Respiratory: bilateral: wheezing - Cardiovascular Rhythm: regular Heart Sounds: Present: S1 & S2 - Extremities Extremities: no ischemia, pulses intact, pulses symmetrical Extremity abnormal: edema - Peripheral Assessment Generalized Edema Type: Non-pitting Edema Degree: 2+ Capillary Refill: < 3 seconds Skin Temperature: Warm Peripheral Pulses: within normal limits - Abdominal General gastrointestinal: soft, non-distended, normal bowel sounds - Integumentary Integumentary: Present: clear, warm, dry - Psychiatric Psychiatric: appropriate mood/affect, cooperative - Neurologic Neurologic: CNII-XII intact, moves all extremities, other (AAOX 3 ) - Constitutional Vitals: Vital Signs - 12hr 02/07/22 02/07/22 02/07/22 03:04 09:33 10:00 Temperature 98.2 F 98.3 F Pulse Rate 72 73 Respiratory 18 22 Rate Blood Pressure 128/58 Blood Pressure 151/63 [Right] O2 Sat by Pulse 100 96 95 Oximetry 02/07/22 12:00 Temperature 98.2 F Pulse Rate 76 Respiratory 20 Rate Blood Pressure Blood Pressure 136/72 [Right] O2 Sat by Pulse 96 Oximetry - Labs CBC & Chem 7: 02/08/22 04:06 02/08/22 04:06 Labs: Abnormal lab results 02/07/22 02/07/22 02/07/22 Range/Units 04:50 10:38 12:36 PT 16.1 H (12.2-14.9) Sec. INR 1.16 H (0.87-1.13) BUN 27 H (7-17) mg/dL Creatinine 1.5 H (0.6-1.2) mg/dL Troponin T 0.073 H D (0.00-0.029) ng/mL HEART Score - HEART Score Troponin: Troponin T 0.073 ng/mL (0.00-0.029) H D 02/07/22 12:36
[2022-02-07] MEDS: DIGOXIN 0.25 MG TAB PO SCH (16:33)
[2022-02-07] MEDS: HEPARIN/ 0.45% NACL DRIP 25,000 UNIT/500 ML BAG IV SCH (16:36)
[2022-02-07] MEDS ORDERED: WARFARIN 2 MG TAB PO NR (17:00)
[2022-02-07] MEDS: SENNOSIDES ORAL LIQD 8.8 MG/5 ML ORAL LIQD PO SCH (21:59)
[2022-02-08] MEDS: ACETAMINOPHEN 325 MG TAB PO PRN ×2 (02:30→21:02)
[2022-02-08 04:59] LABS: Hematocrit 35.3 % (30.3-42.9); Hemoglobin 10.7 gm/dl (10.1-14.3)
[2022-02-08 05:06] LABS: INR 1.52 (0.87-1.13)
[2022-02-08] MEDS: FUROSEMIDE 40 MG/4 ML INJ IV SCH (05:08)
[2022-02-08 05:24] LABS: Calcium 9.3 mg/dL (8.4-10.2)
[2022-02-08] MEDS: GABAPENTIN 300 MG CAP PO SCH ×3 (08:12→21:04)
[2022-02-08] MEDS: SPIRONOLACTONE 25 MG TAB PO SCH (09:58)
[2022-02-08] MEDS: DOCUSATE SODIUM 100 MG/10 ML ORAL LIQD PO SCH ×3 (09:58→21:08)
[2022-02-08] MEDS: METOPROLOL TARTRATE 50 MG TAB PO SCH ×2 (09:58→21:04)
[2022-02-08] MEDS: FAMOTIDINE 10 MG TAB PO SCH ×2 (09:59→21:03)
[2022-02-08] MEDS: HEPARIN/ 0.45% NACL DRIP 25,000 UNIT/500 ML BAG IV SCH (09:59)
[2022-02-08] MEDS: LISINOPRIL 10 MG TAB PO SCH (09:59)
--- NOTE | 2022-02-08 10:01 | Progress Note ---
Assessment and Plan - Patient Problems (1) Acute respiratory failure with hypoxia Current Visit: Yes Status: Acute (2) Dilated cardiomyopathy Current Visit: Yes Status: Acute (3) Encephalopathy Current Visit: Yes Status: Acute (4) H/O mechanical aortic valve replacement Current Visit: Yes Status: Acute (5) H/O mitral valve replacement with mechanical valve Current Visit: Yes Status: Acute (6) Hypokalemia Current Visit: Yes Status: Acute (7) Supratherapeutic INR Current Visit: Yes Status: Acute (8) Chronic atrial fibrillation Current Visit: Yes Status: Chronic (9) Acute exacerbation of CHF (congestive heart failure) Current Visit: No Status: Acute Qualifiers: Subjective Principal diagnosis: Altered mental status, respiratory failure Interval history: awake wants to go home Objective Vital Signs - 12hr 02/07/22 02/08/22 02/08/22 22:05 00:00 00:02 Temperature 97.9 F Pulse Rate 68 Respiratory 18 Rate Blood Pressure Blood Pressure 129/68 [Right] O2 Sat by Pulse 95 100 91 Oximetry 02/08/22 02/08/22 02/08/22 00:40 03:20 07:43 Temperature 98.6 F 98.4 F Pulse Rate 72 71 71 Respiratory 17 19 18 Rate Blood Pressure 148/74 142/67 Blood Pressure [Right] O2 Sat by Pulse 100 100 94 Oximetry 02/08/22 02/08/22 02/08/22 08:00 08:34 09:58 Temperature Pulse Rate 74 88 Respiratory Rate Blood Pressure Blood Pressure [Right] O2 Sat by Pulse 93 Oximetry 02/08/22 09:59 Temperature Pulse Rate 89 Respiratory Rate Blood Pressure Blood Pressure [Right] O2 Sat by Pulse Oximetry Constitutional: no acute distress, alert Eyes: non-icteric ENT: oropharynx moist Neck: supple Effort: normal Ascultation: Bilateral: clear Cardiovascular: regular rate and rhythm Gastrointestinal: normoactive bowel sounds, soft, non-tender, non-distended, other (obese) Extremities: no cyanosis Neurologic: normal mental status Psychiatric: mood appropriate, affect normal CBC and BMP: 02/08/22 04:06 02/08/22 04:06 ABG, PT/INR, D-dimer: ABG ABG pH 7.380 pH Units (7.350-7.450) 02/04/22 05:35 ABG pCO2 48.6 mm Hg 02/04/22 05:35 ABG pO2 67.0 mm Hg (80.0-90.0) L 02/04/22 05:35 ABG O2 Saturation 93.8 % (95.0-99.0) L 02/04/22 05:35 PT/INR, D-dimer PT 20.2 Sec. (12.2-14.9) H 02/08/22 04:06 INR 1.52 (0.87-1.13) H 02/08/22 04:06 Abnormal lab findings: Abnormal Labs 02/01/22 02/01/22 02/02/22 21:59 21:59 07:50 MCH 25 L RDW 19.0 H Lymph % (Auto) [place] % (Auto) 7.4 H Lymph # (Auto) 0.9 L Seg Neutrophils % 76.0 H PT 16.3 H INR 1.17 H Heparin Anti-Xa Level ABG pO2 ABG HCO3 ABG O2 Saturation ABG Hemoglobin Oxyhemoglobin Potassium 3.0 L BUN Creatinine POC Glucose Total Bilirubin 2.30 H ALT 6 L Troponin T C-Reactive Protein NT-Pro-B Natriuret Pep Total Protein 8.3 H Albumin 3.5 L HDL Cholesterol Salicylates Acetaminophen 02/02/22 02/02/22 02/02/22 07:50 07:50 08:07 MCH RDW Lymph % (Auto) [place] % (Auto) Lymph # (Auto) Seg Neutrophils % PT INR Heparin Anti-Xa Level ABG pO2 ABG HCO3 ABG O2 Saturation ABG Hemoglobin Oxyhemoglobin Potassium BUN Creatinine POC Glucose Total Bilirubin ALT Troponin T 0.077 H C-Reactive Protein NT-Pro-B Natriuret Pep 3678 H Total Protein Albumin HDL Cholesterol 38 L Salicylates < 0.3 L Acetaminophen 5.0 L 02/02/22 02/02/22 02/02/22 10:30 12:42 18:37 MCH RDW Lymph % (Auto) [place] % (Auto) Lymph # (Auto) Seg Neutrophils % PT INR Heparin Anti-Xa Level 0.10 L ABG pO2 153.8 H ABG HCO3 26.5 H ABG O2 Saturation ABG Hemoglobin 10.9 L Oxyhemoglobin Potassium BUN Creatinine POC Glucose 69 L Total Bilirubin ALT Troponin T C-Reactive Protein NT-Pro-B Natriuret Pep Total Protein Albumin HDL Cholesterol Salicylates Acetaminophen 02/02/22 02/03/22 02/03/22 23:24 03:57 03:57 MCH 25 L RDW 18.7 H Lymph % (Auto) 13.1 L [place] % (Auto) 10.6 H Lymph # (Auto) 0.9 L Seg Neutrophils % 71.7 H PT INR Heparin Anti-Xa Level ABG pO2 ABG HCO3 ABG O2 Saturation ABG Hemoglobin Oxyhemoglobin Potassium 3.3 L BUN Creatinine POC Glucose 60 L Total Bilirubin ALT Troponin T 0.094 H C-Reactive Protein NT-Pro-B Natriuret Pep Total Protein Albumin HDL Cholesterol Salicylates Acetaminophen 02/03/22 02/03/22 02/03/22 04:20 11:31 17:25 MCH RDW Lymph % (Auto) [place] % (Auto) Lymph # (Auto) Seg Neutrophils % PT INR Heparin Anti-Xa Level ABG pO2 ABG HCO3 26.6 H ABG O2 Saturation ABG Hemoglobin 11.3 L Oxyhemoglobin 94.8 L Potassium BUN Creatinine POC Glucose 113 H Total Bilirubin ALT Troponin T 0.092 H C-Reactive Protein 6.20 H NT-Pro-B Natriuret Pep Total Protein Albumin HDL Cholesterol Salicylates Acetaminophen 02/04/22 02/04/22 02/04/22 04:32 04:32 05:35 MCH 25 L RDW 18.6 H Lymph % (Auto) [place] % (Auto) Lymph # (Auto) Seg Neutrophils % PT INR Heparin Anti-Xa Level ABG pO2 67.0 L ABG HCO3 28.1 H ABG O2 Saturation 93.8 L ABG Hemoglobin 11.2 L Oxyhemoglobin 91.7 L Potassium BUN 19 H Creatinine 1.3 H POC Glucose Total Bilirubin ALT Troponin T C-Reactive Protein NT-Pro-B Natriuret Pep Total Protein Albumin HDL Cholesterol Salicylates Acetaminophen 02/04/22 02/04/22 02/05/22 17:37 20:51 05:09 MCH 25 L RDW 18.8 H Lymph % (Auto) [place] % (Auto) Lymph # (Auto) Seg Neutrophils % PT INR Heparin Anti-Xa Level < 0.10 L ABG pO2 ABG HCO3 ABG O2 Saturation ABG Hemoglobin Oxyhemoglobin Potassium BUN Creatinine POC Glucose 157 H Total Bilirubin ALT Troponin T C-Reactive Protein NT-Pro-B Natriuret Pep Total Protein Albumin HDL Cholesterol Salicylates Acetaminophen 02/05/22 02/05/22 02/05/22 05:09 05:09 09:18 MCH RDW Lymph % (Auto) [place] % (Auto) Lymph # (Auto) Seg Neutrophils % PT INR Heparin Anti-Xa Level 1.40 H < 0.10 L ABG pO2 ABG HCO3 ABG O2 Saturation ABG Hemoglobin Oxyhemoglobin Potassium BUN 23 H Creatinine 1.4 H POC Glucose Total Bilirubin ALT Troponin T C-Reactive Protein NT-Pro-B Natriuret Pep Total Protein Albumin HDL Cholesterol Salicylates Acetaminophen 02/05/22 02/05/22 02/06/22 09:18 13:28 06:03 MCH RDW Lymph % (Auto) [place] % (Auto) Lymph # (Auto) Seg Neutrophils % PT 15.0 H INR Heparin Anti-Xa Level 0.94 H ABG pO2 ABG HCO3 ABG O2 Saturation ABG Hemoglobin Oxyhemoglobin Potassium BUN 29 H Creatinine 1.5 H POC Glucose Total Bilirubin ALT Troponin T C-Reactive Protein NT-Pro-B Natriuret Pep Total Protein Albumin HDL Cholesterol Salicylates Acetaminophen 02/06/22 02/06/22 02/06/22 06:03 06:03 08:08 MCH 25 L RDW 19.1 H Lymph % (Auto) [place] % (Auto) Lymph # (Auto) Seg Neutrophils % PT 15.6 H INR Heparin Anti-Xa Level ABG pO2 ABG HCO3 ABG O2 Saturation ABG Hemoglobin Oxyhemoglobin Potassium BUN 29 H Creatinine 1.5 H POC Glucose Total Bilirubin ALT Troponin T C-Reactive Protein NT-Pro-B Natriuret Pep Total Protein Albumin HDL Cholesterol Salicylates Acetaminophen 02/07/22 02/07/22 02/07/22 04:50 10:38 12:36 MCH RDW Lymph % (Auto) [place] % (Auto) Lymph # (Auto) Seg Neutrophils % PT 16.1 H INR 1.16 H Heparin Anti-Xa Level ABG pO2 ABG HCO3 ABG O2 Saturation ABG Hemoglobin Oxyhemoglobin Potassium BUN 27 H Creatinine 1.5 H POC Glucose Total Bilirubin ALT Troponin T 0.073 H D C-Reactive Protein NT-Pro-B Natriuret Pep Total Protein Albumin HDL Cholesterol Salicylates Acetaminophen 02/08/22 02/08/22 04:06 04:06 MCH RDW Lymph % (Auto) [place] % (Auto) Lymph # (Auto) Seg Neutrophils % PT 20.2 H INR 1.52 H Heparin Anti-Xa Level ABG pO2 ABG HCO3 ABG O2 Saturation ABG Hemoglobin Oxyhemoglobin Potassium BUN 23 H Creatinine 1.4 H POC Glucose Total Bilirubin ALT Troponin T C-Reactive Protein NT-Pro-B Natriuret Pep Total Protein Albumin HDL Cholesterol Salicylates Acetaminophen
--- NOTE | 2022-02-08 10:57 | Progress Note ---
Assessment and Plan This is a 56-year-old female with known past medical history of COPD, HTN, HLD, mechanical mitral and aortic valves replacement, CHF, nonischemic cardiomyopathy s/p AICD, and chronic atrial fibrillation, noncompliant with anticoagulation a dmitted for AMS and acute hypoxic respiratory failure requiring ventilatory Hospital Course to Date: 02/03: Stable on the vent, sedation initiated overnight due to increase agitation. Wean sedation as tolerated, plan for possible SAT/SBT tomorrow. Blood culture positive GPC in 1 out 4 bottles, empiric IV antibiotics- Vanco initiated overnight. Patient remains afebrile, WBCs wnr, BP bordeline this am probably secondary to sedation. Continue empiric IV Abx for now, repeat Blood cultures, and will also check a procal. Periods of hypoglycemia overnight, TF at goal this am, continue BG check and hypoglycemic protocol. Patient remains on IV lasix BID, monitor renal function and electrolytes, replete as needed. 02/04: Remains on thevent on low dose sedation today,fentanyl at 1mcg. Following simple commands. This am ABG and CXR noted, IV lasix held due to low BP. Mild increase in scr this am, probably due to hypoperfusion, resume lasix and continue to monitor renal function. Plan for possible extubation today, BIPAP at night and PRN post extubation. 02/05: s/p extubation, stable on 4L NC. Continue Nebs treatment and O2 supplementation, wean as tolerated for SPO2 goal above 90%. Bipap at night. Patient remains afebrile with no leukocytosis, repeat blood culture are with NGTD, Procal 0.47. IV Vanco D/C. Renal function continue to worsen, Scr. 1.4 this am. IV lasix reduced to qday, continue to monitor renal function for now. Patient remains on heparin gtt, plan to bridge to PO coumadin today, goal INR 2.5-3.5. PT/INR pending. D/C CCM patient is stable for transfer to telemetry. 02/06: wean off supplemental O2, PT eval, Cr trending up - follow BMP. Patient r emains on heparin drip to bridge with Coumadin, follow INR 02/07: Patient remains subtherapeutic INR. Continue to monitor INR, continue Coumadin along with heparin drip to bridge. Wean off O2 as tolerated. Patient complains of chest pain today, ordered EKG and stat troponin. EKG unremarkable and no change from prior study we will continue to follow troponin 02/08: cont to monitor INR, discussed with sister by phone. plan to dc when INR therapeutic Assessment and Plan #Acute Hypoxic Respiratory Failure #Pulmonary edema #H/o COPD -Intubated in the ED on 02/02 fir airway protection -Chest x-ray reviewed, suggestive of pulmonary edema -likely secondary to CHF exacerbation -02/04 s/p extubation -Now stable on 4L NC -CCM consulted, appreciate recommendations -Continue IV lasix and Nebs treatment as needed -Aspiration precaution HOB above 30 -Continue O2 supplementation and wean as tolerated -Continue SPO2 monitoring for SPO2 goal above 90% -Bipap at night #Acute on chronic heart failure with reduced ejection fraction #Dilated nonischemic Cardiomyopathy s/p AICD #Chronic Atrial fibrillation #h/o mechanical aortic and mitral valves #Noncompliant with Anticoagulation -TTE 10/2021: LVEF 30-35% -NTproBNP 3678, elevated Troponin X2 most like type 2 -Patient is Vpacing on the monitor, HR 70 -restarted aldactone, digoxin, metoprolol and lisinopril at home doses -IV lasix reduced to qday due to worsen renal function -Continue blood pressure monitor per protocol -Maintain MAP above 65 -Cardiology also consulted -patient was prescribed warfarin in the past, likely non-compliant given multiple subtheraputic INRs (current INR 1.17) -continue heparin gtt for now- bridge to coumadin -goal INR 2.5-3.5 #Acute Metabolic Encephalopathy-resolved -CT head negative for acute abnormality -UA unremarkable -Avoid benzodiazepine to reduce the possibility of delirium -PRN Analgesia for pain control -Maintenance of sleep-wake cycle #Positive Blood Culture -Blood culture + GPC in 1 out 4 bottles, probable cross contamination -Chest x-ray reviewed, suggestive of pulmonary edema -UA is unremarkable, sputum culture pending -Patient is afebrile, WBCs wnr -Repeat Blood cultures NGTD -Procal 0.47 -IV Vanco D/C -Continue to F/U on cultures -Daily CBC monitor -Consider ID consult if febrile or/and if leukocytosis occur #Rectus sheath hematoma #Rib fractures -seen on previous imaging on 01/31 ER visit -Most likely due to some sort of injury/fall -General surgery consulted, assistance appreciated -No plan for any surgical intervention at this time -On heparin gtt per protcol -H&H remains stable -Close monitoring of s/s of active bleeding #Hypoglycemia-improved -Low BG overnight, resolved this am -Enteral nutrition at goal this am -Continue BG check Q6hrs -Avoid Hypoglycemia -Continue Hypoglycemic protocol #Hypokalemia-improved -Patient is on IV lasix -K repleted -Monitor and replace electrolytes as needed #Hyperlipidemia -continue statin at home dose #GI/DVT Prophylaxis -PPI- Pepcid -Heparin gtt-bridging to coumadin Subjective Date of service: 02/08/22 Principal diagnosis: Altered mental status, respiratory failure Interval history: Patient seen and examined. Medical records and medication list reviewed. No acute event overnight noted by the RN. Patient remains on nasal cannula O2. Patient is tolerating diet. H&H stable, INR remains subtherapeutic Discussed plan of care at bedside with patient. Objective - Exam Narrative Exam: General appearance: Present: no acute distress, obese - EENT Eyes: Present: PERRL, EOM intact ENT: hearing intact - Neck Neck: Present: normal ROM - Respiratory Respiratory effort: normal Respiratory: bilateral: wheezing - Cardiovascular Rhythm: regular Heart Sounds: Present: S1 & S2 - Extremities Extremities: no ischemia, pulses intact, pulses symmetrical Extremity abnormal: edema - Peripheral Assessment Generalized Edema Type: Non-pitting Edema Degree: 2+ Capillary Refill: < 3 seconds Skin Temperature: Warm Peripheral Pulses: within normal limits - Abdominal General gastrointestinal: soft, non-distended, normal bowel sounds - Integumentary Integumentary: Present: clear, warm, dry - Psychiatric Psychiatric: appropriate mood/affect, cooperative - Neurologic Neurologic: CNII-XII intact, moves all extremities, other (AAOX 3 ) - Constitutional Vitals: Vital Signs - 12hr 02/08/22 02/08/22 02/08/22 00:00 00:02 00:40 Temperature 97.9 F Pulse Rate 68 72 Respiratory 18 17 Rate Blood Pressure Blood Pressure 129/68 [Right] O2 Sat by Pulse 100 91 100 Oximetry 02/08/22 02/08/22 02/08/22 03:20 07:43 08:00 Temperature 98.6 F 98.4 F Pulse Rate 71 71 74 Respiratory 19 18 Rate Blood Pressure 148/74 142/67 Blood Pressure [Right] O2 Sat by Pulse 100 94 Oximetry 02/08/22 02/08/22 02/08/22 08:34 09:58 09:59 Temperature Pulse Rate 88 89 Respiratory Rate Blood Pressure Blood Pressure [Right] O2 Sat by Pulse 93 Oximetry - Labs CBC & Chem 7: 02/08/22 04:06 02/08/22 04:06 Labs: Abnormal lab results 02/07/22 02/07/22 02/08/22 Range/Units 10:38 12:36 04:06 PT 20.2 H (12.2-14.9) Sec. INR 1.52 H (0.87-1.13) BUN 27 H (7-17) mg/dL Creatinine 1.5 H (0.6-1.2) mg/dL Troponin T 0.073 H D (0.00-0.029) ng/mL 02/08/22 Range/Units 04:06 PT (12.2-14.9) Sec. INR (0.87-1.13) BUN 23 H (7-17) mg/dL Creatinine 1.4 H (0.6-1.2) mg/dL Troponin T (0.00-0.029) ng/mL HEART Score - HEART Score Troponin: Troponin T 0.073 ng/mL (0.00-0.029) H D 02/07/22 12:36
--- NOTE | 2022-02-08 11:48 | Progress Note ---
Assessment and Plan #Nonischemic cardiomyopathy status post ICD #History of mechanical aortic and mitral valve replacements - non-compliant with warfarin. #Persistent AF #Acute hypoxic respiratory failure Continue IV heparin as bridge to warfarin given history of mechanical aortic/mitral valves and AF. Anticoagulation regimen should be managed judiciously due to recent diagnosis of rectal sheath hematoma. Continue GDMT for cardiomyopathy. Subjective Date of service: 02/08/22 Principal diagnosis: Altered mental status, respiratory failure Interval history: No events. Wants to go home. INR 1.5 today. Continues on heparin drip. Tele - [employer] with PVCs, NSVT x3 Objective Vital Signs Temp Pulse Resp BP BP Pulse Ox 02/08/22 11:42 98.7 F 69 18 136/60 100 02/08/22 09:59 89 02/08/22 09:58 88 02/08/22 08:34 93 02/08/22 08:00 74 02/08/22 07:43 98.4 F 71 18 142/67 94 02/08/22 03:20 98.6 F 71 19 148/74 100 02/08/22 00:40 72 17 100 02/08/22 00:02 91 02/08/22 00:00 97.9 F 68 18 129/68 100 02/07/22 22:05 95 02/07/22 20:00 97.4 F L 70 20 135/59 100 02/07/22 16:33 77 02/07/22 14:00 76 02/07/22 13:00 91 02/07/22 12:00 98.2 F 76 20 136/72 96 - Physical Examination Narrative exam: Gen-NAD, comfortable HEENT-normocephalic, atraumatic CV-irregular rhythm, mechanical heart sounds, no murmurs Lungs-CTAB, no increased WOB Abd-soft, nt,nd Ext-no edema, warm to touch Neuro-no focal deficits, alert and oriented Psych-normal affect, no agitation Left chest ICD well healed - Labs and Meds Coagulation 02/08/22 Range/Units 04:06 PT 20.2 H (12.2-14.9) Sec. INR 1.52 H (0.87-1.13) CBC 02/08/22 Range/Units 04:06 Hgb 10.7 (10.1-14.3) gm/dl Hct 35.3 (30.3-42.9) % Plt Count 305 (140-440) K/mm3 Comprehensive Metabolic Panel 02/07/22 02/08/22 Range/Units 10:38 04:06 Sodium 143 142 (137-145) mmol/L Potassium 4.1 4.4 (3.6-5.0) mmol/L Chloride 106.7 106.6 (98-107) mmol/L Carbon Dioxide 27 25 (22-30) mmol/L BUN 27 H 23 H (7-17) mg/dL Creatinine 1.5 H 1.4 H (0.6-1.2) mg/dL Glucose 88 97 (65-100) mg/dL Calcium 9.2 9.3 (8.4-10.2) mg/dL
[2022-02-08] MEDS ORDERED: WARFARIN 5 MG TAB PO SCH (17:00)
[2022-02-08] MEDS: DIGOXIN 0.25 MG TAB PO SCH (17:08)
[2022-02-08] MEDS: oxyCODONE /ACETAMINOPHEN 5-325MG TAB PO PRN (18:46)
[2022-02-08] MEDS: SENNOSIDES ORAL LIQD 8.8 MG/5 ML ORAL LIQD PO SCH ×2 (21:05→21:09)
[2022-02-09] MEDS: HEPARIN/ 0.45% NACL DRIP 25,000 UNIT/500 ML BAG IV SCH (03:36)
[2022-02-09] MEDS: FUROSEMIDE 40 MG/4 ML INJ IV SCH (05:41)
[2022-02-09 06:47] LABS: INR 2.47 (0.87-1.13)
[2022-02-09] MEDS: GABAPENTIN 300 MG CAP PO SCH ×3 (08:50→21:22)
[2022-02-09] MEDS: DOCUSATE SODIUM 100 MG/10 ML ORAL LIQD PO SCH ×2 (09:02→22:00)
[2022-02-09] MEDS: SPIRONOLACTONE 25 MG TAB PO SCH (09:02)
[2022-02-09] MEDS: LISINOPRIL 10 MG TAB PO SCH (09:03)
[2022-02-09] MEDS: FAMOTIDINE 10 MG TAB PO SCH ×2 (09:03→21:21)
[2022-02-09] MEDS: METOPROLOL TARTRATE 50 MG TAB PO SCH ×2 (09:03→21:22)
--- NOTE | 2022-02-09 10:09 | Progress Note ---
Assessment and Plan #Nonischemic cardiomyopathy status post ICD #History of mechanical aortic and mitral valve replacements - non-compliant with warfarin. #Persistent AF #Acute hypoxic respiratory failure Continue IV heparin as bridge to warfarin given history of mechanical aortic/mitral valves and AF. Anticoagulation regimen should be managed judiciously due to recent diagnosis of rectal sheath hematoma. Goal INR 2.5-3.5. Counseled on importance of compliance with warfarin and INR checks. Continue GDMT for cardiomyopathy. Subjective Date of service: 02/09/22 Principal diagnosis: Altered mental status, respiratory failure Interval history: No events. No CP/SOB. INR 2.47 today. Continues on heparin drip. Tele - [employer] Objective Vital Signs Temp Pulse Resp BP Pulse Ox 02/09/22 09:03 86 02/09/22 09:02 86 02/09/22 08:13 98.0 F 18 128/70 02/09/22 08:06 98.0 F 70 18 130/68 99 02/09/22 08:00 79 02/09/22 07:37 98 02/09/22 04:11 67 20 132/67 94 02/08/22 23:19 70 22 100 02/08/22 21:00 66 20 135/60 100 02/08/22 20:39 91 02/08/22 17:08 84 02/08/22 14:53 98.0 F 71 18 147/71 100 02/08/22 13:55 84 02/08/22 13:00 91 02/08/22 11:42 98.7 F 69 18 136/60 100 - Physical Examination Narrative exam: Gen-NAD, comfortable HEENT-normocephalic, atraumatic CV-irregular rhythm, mechanical heart sounds, no murmurs Lungs-CTAB, no increased WOB Abd-soft, nt,nd Ext-no edema, warm to touch Neuro-no focal deficits, alert and oriented Psych-normal affect, no agitation Left chest ICD well healed - Labs and Meds Coagulation 02/09/22 Range/Units 06:01 PT 30.0 H (12.2-14.9) Sec. INR 2.47 H (0.87-1.13)
--- NOTE | 2022-02-09 10:37 | Progress Note ---
Assessment and Plan - Patient Problems (1) Acute respiratory failure with hypoxia Current Visit: Yes Status: Acute (2) Dilated cardiomyopathy Current Visit: Yes Status: Acute (3) Encephalopathy Current Visit: Yes Status: Acute (4) H/O mechanical aortic valve replacement Current Visit: Yes Status: Acute (5) H/O mitral valve replacement with mechanical valve Current Visit: Yes Status: Acute (6) Hypokalemia Current Visit: Yes Status: Acute (7) Supratherapeutic INR Current Visit: Yes Status: Acute (8) Chronic atrial fibrillation Current Visit: Yes Status: Chronic (9) Acute exacerbation of CHF (congestive heart failure) Current Visit: No Status: Acute Qualifiers: Subjective Principal diagnosis: Altered mental status, respiratory failure Interval history: pt awake Objective Vital Signs - 12hr 02/08/22 02/09/22 02/09/22 23:19 04:11 07:37 Temperature Pulse Rate 70 67 Respiratory 22 20 Rate Blood Pressure 132/67 O2 Sat by Pulse 100 94 98 Oximetry 02/09/22 02/09/22 02/09/22 08:00 08:06 08:13 Temperature 98.0 F 98.0 F Pulse Rate 79 70 Respiratory 18 18 Rate Blood Pressure 130/68 128/70 O2 Sat by Pulse 99 Oximetry 02/09/22 02/09/22 09:02 09:03 Temperature Pulse Rate 86 86 Respiratory Rate Blood Pressure O2 Sat by Pulse Oximetry Constitutional: no acute distress, alert Eyes: non-icteric ENT: oropharynx moist Neck: supple Effort: normal Ascultation: Bilateral: clear Cardiovascular: regular rate and rhythm Gastrointestinal: normoactive bowel sounds, soft, non-tender, non-distended, other (obese) Extremities: no cyanosis Neurologic: normal mental status Psychiatric: mood appropriate, affect normal CBC and BMP: 02/08/22 04:06 02/08/22 04:06 ABG, PT/INR, D-dimer: ABG ABG pH 7.380 pH Units (7.350-7.450) 02/04/22 05:35 ABG pCO2 48.6 mm Hg 02/04/22 05:35 ABG pO2 67.0 mm Hg (80.0-90.0) L 02/04/22 05:35 ABG O2 Saturation 93.8 % (95.0-99.0) L 06/07/22 05:35 PT/INR, D-dimer PT 30.0 Sec. (12.2-14.9) H 02/09/22 06:01 INR 2.47 (0.87-1.13) H 02/09/22 06:01 Abnormal lab findings: Abnormal Labs 02/01/22 02/01/22 02/02/22 21:59 21:59 07:50 MCH 25 L RDW 19.0 H Lymph % (Auto) [place] % (Auto) 7.4 H Lymph # (Auto) 0.9 L Seg Neutrophils % 76.0 H PT 16.3 H INR 1.17 H Heparin Anti-Xa Level ABG pO2 ABG HCO3 ABG O2 Saturation ABG Hemoglobin Oxyhemoglobin Potassium 3.0 L BUN Creatinine POC Glucose Total Bilirubin 2.30 H ALT 6 L Troponin T C-Reactive Protein NT-Pro-B Natriuret Pep Total Protein 8.3 H Albumin 3.5 L HDL Cholesterol Salicylates Acetaminophen 02/02/22 02/02/22 02/02/22 07:50 07:50 08:07 MCH RDW Lymph % (Auto) [place] % (Auto) Lymph # (Auto) Seg Neutrophils % PT INR Heparin Anti-Xa Level ABG pO2 ABG HCO3 ABG O2 Saturation ABG Hemoglobin Oxyhemoglobin Potassium BUN Creatinine POC Glucose Total Bilirubin ALT Troponin T 0.077 H C-Reactive Protein NT-Pro-B Natriuret Pep 3678 H Total Protein Albumin HDL Cholesterol 38 L Salicylates < 0.3 L Acetaminophen 5.0 L 02/02/22 02/02/22 02/02/22 10:30 12:42 18:37 MCH RDW Lymph % (Auto) [place] % (Auto) Lymph # (Auto) Seg Neutrophils % PT INR Heparin Anti-Xa Level 0.10 L ABG pO2 153.8 H ABG HCO3 26.5 H ABG O2 Saturation ABG Hemoglobin 10.9 L Oxyhemoglobin Potassium BUN Creatinine POC Glucose 69 L Total Bilirubin ALT Troponin T C-Reactive Protein NT-Pro-B Natriuret Pep Total Protein Albumin HDL Cholesterol Salicylates Acetaminophen 02/02/22 02/03/22 02/03/22 23:24 03:57 03:57 MCH 25 L RDW 18.7 H Lymph % (Auto) 13.1 L [place] % (Auto) 10.6 H Lymph # (Auto) 0.9 L Seg Neutrophils % 71.7 H PT INR Heparin Anti-Xa Level ABG pO2 ABG HCO3 ABG O2 Saturation ABG Hemoglobin Oxyhemoglobin Potassium 3.3 L BUN Creatinine POC Glucose 60 L Total Bilirubin ALT Troponin T 0.094 H C-Reactive Protein NT-Pro-B Natriuret Pep Total Protein Albumin HDL Cholesterol Salicylates Acetaminophen 02/03/22 02/03/22 02/03/22 04:20 11:31 17:25 MCH RDW Lymph % (Auto) [place] % (Auto) Lymph # (Auto) Seg Neutrophils % PT INR Heparin Anti-Xa Level ABG pO2 ABG HCO3 26.6 H ABG O2 Saturation ABG Hemoglobin 11.3 L Oxyhemoglobin 94.8 L Potassium BUN Creatinine POC Glucose 113 H Total Bilirubin ALT Troponin T 0.092 H C-Reactive Protein 6.20 H NT-Pro-B Natriuret Pep Total Protein Albumin HDL Cholesterol Salicylates Acetaminophen 02/04/22 02/04/22 02/04/22 04:32 04:32 05:35 MCH 25 L RDW 18.6 H Lymph % (Auto) [place] % (Auto) Lymph # (Auto) Seg Neutrophils % PT INR Heparin Anti-Xa Level ABG pO2 67.0 L ABG HCO3 28.1 H ABG O2 Saturation 93.8 L ABG Hemoglobin 11.2 L Oxyhemoglobin 91.7 L Potassium BUN 19 H Creatinine 1.3 H POC Glucose Total Bilirubin ALT Troponin T C-Reactive Protein NT-Pro-B Natriuret Pep Total Protein Albumin HDL Cholesterol Salicylates Acetaminophen 02/04/22 02/04/22 02/05/22 17:37 20:51 05:09 MCH 25 L RDW 18.8 H Lymph % (Auto) [place] % (Auto) Lymph # (Auto) Seg Neutrophils % PT INR Heparin Anti-Xa Level < 0.10 L ABG pO2 ABG HCO3 ABG O2 Saturation ABG Hemoglobin Oxyhemoglobin Potassium BUN Creatinine POC Glucose 157 H Total Bilirubin ALT Troponin T C-Reactive Protein NT-Pro-B Natriuret Pep Total Protein Albumin HDL Cholesterol Salicylates Acetaminophen 02/05/22 02/05/22 02/05/22 05:09 05:09 09:18 MCH RDW Lymph % (Auto) [place] % (Auto) Lymph # (Auto) Seg Neutrophils % PT INR Heparin Anti-Xa Level 1.40 H < 0.10 L ABG pO2 ABG HCO3 ABG O2 Saturation ABG Hemoglobin Oxyhemoglobin Potassium BUN 23 H Creatinine 1.4 H POC Glucose Total Bilirubin ALT Troponin T C-Reactive Protein NT-Pro-B Natriuret Pep Total Protein Albumin HDL Cholesterol Salicylates Acetaminophen 02/05/22 02/05/22 02/06/22 09:18 13:28 06:03 MCH RDW Lymph % (Auto) [place] % (Auto) Lymph # (Auto) Seg Neutrophils % PT 15.0 H INR Heparin Anti-Xa Level 0.94 H ABG pO2 ABG HCO3 ABG O2 Saturation ABG Hemoglobin Oxyhemoglobin Potassium BUN 29 H Creatinine 1.5 H POC Glucose Total Bilirubin ALT Troponin T C-Reactive Protein NT-Pro-B Natriuret Pep Total Protein Albumin HDL Cholesterol Salicylates Acetaminophen 02/06/22 02/06/22 02/06/22 06:03 06:03 08:08 MCH 25 L RDW 19.1 H Lymph % (Auto) [place] % (Auto) Lymph # (Auto) Seg Neutrophils % PT 15.6 H INR Heparin Anti-Xa Level ABG pO2 ABG HCO3 ABG O2 Saturation ABG Hemoglobin Oxyhemoglobin Potassium BUN 29 H Creatinine 1.5 H POC Glucose Total Bilirubin ALT Troponin T C-Reactive Protein NT-Pro-B Natriuret Pep Total Protein Albumin HDL Cholesterol Salicylates Acetaminophen 02/07/22 02/07/22 02/07/22 04:50 10:38 12:36 MCH RDW Lymph % (Auto) [place] % (Auto) Lymph # (Auto) Seg Neutrophils % PT 16.1 H INR 1.16 H Heparin Anti-Xa Level ABG pO2 ABG HCO3 ABG O2 Saturation ABG Hemoglobin Oxyhemoglobin Potassium BUN 27 H Creatinine 1.5 H POC Glucose Total Bilirubin ALT Troponin T 0.073 H D C-Reactive Protein NT-Pro-B Natriuret Pep Total Protein Albumin HDL Cholesterol Salicylates Acetaminophen 02/08/22 02/08/22 02/08/22 04:06 04:06 12:12 MCH RDW Lymph % (Auto) [place] % (Auto) Lymph # (Auto) Seg Neutrophils % PT 20.2 H INR 1.52 H Heparin Anti-Xa Level ABG pO2 ABG HCO3 ABG O2 Saturation ABG Hemoglobin Oxyhemoglobin Potassium BUN 23 H Creatinine 1.4 H POC Glucose Total Bilirubin ALT Troponin T 0.062 H C-Reactive Protein NT-Pro-B Natriuret Pep Total Protein Albumin HDL Cholesterol Salicylates Acetaminophen 02/08/22 02/09/22 02/09/22 23:15 06:01 06:01 MCH RDW Lymph % (Auto) [place] % (Auto) Lymph # (Auto) Seg Neutrophils % PT 30.0 H INR 2.47 H Heparin Anti-Xa Level ABG pO2 ABG HCO3 ABG O2 Saturation ABG Hemoglobin Oxyhemoglobin Potassium BUN Creatinine POC Glucose Total Bilirubin ALT Troponin T 0.058 H 0.045 H D C-Reactive Protein NT-Pro-B Natriuret Pep Total Protein Albumin HDL Cholesterol Salicylates Acetaminophen
--- NOTE | 2022-02-09 12:15 | Progress Note ---
Assessment and Plan This is a 56-year-old female with known past medical history of COPD, HTN, HLD, mechanical mitral and aortic valves replacement, CHF, nonischemic cardiomyopathy s/p AICD, and chronic atrial fibrillation, noncompliant with anticoagulation a dmitted for AMS and acute hypoxic respiratory failure requiring ventilatory Hospital Course to Date: 02/03: Stable on the vent, sedation initiated overnight due to increase agitation. Wean sedation as tolerated, plan for possible SAT/SBT tomorrow. Blood culture positive GPC in 1 out 4 bottles, empiric IV antibiotics- Vanco initiated overnight. Patient remains afebrile, WBCs wnr, BP bordeline this am probably secondary to sedation. Continue empiric IV Abx for now, repeat Blood cultures, and will also check a procal. Periods of hypoglycemia overnight, TF at goal this am, continue BG check and hypoglycemic protocol. Patient remains on IV lasix BID, monitor renal function and electrolytes, replete as needed. 02/04: Remains on thevent on low dose sedation today,fentanyl at 1mcg. Following simple commands. This am ABG and CXR noted, IV lasix held due to low BP. Mild increase in scr this am, probably due to hypoperfusion, resume lasix and continue to monitor renal function. Plan for possible extubation today, BIPAP at night and PRN post extubation. 02/05: s/p extubation, stable on 4L NC. Continue Nebs treatment and O2 supplementation, wean as tolerated for SPO2 goal above 90%. Bipap at night. Patient remains afebrile with no leukocytosis, repeat blood culture are with NGTD, Procal 0.47. IV Vanco D/C. Renal function continue to worsen, Scr. 1.4 this am. IV lasix reduced to qday, continue to monitor renal function for now. Patient remains on heparin gtt, plan to bridge to PO coumadin today, goal INR 2.5-3.5. PT/INR pending. D/C CCM patient is stable for transfer to telemetry. 02/06: wean off supplemental O2, PT eval, Cr trending up - follow BMP. Patient r emains on heparin drip to bridge with Coumadin, follow INR 02/07: Patient remains subtherapeutic INR. Continue to monitor INR, continue Coumadin along with heparin drip to bridge. Wean off O2 as tolerated. Patient complains of chest pain today, ordered EKG and stat troponin. EKG unremarkable and no change from prior study we will continue to follow troponin 02/08: cont to monitor INR, discussed with sister by phone. plan to dc when INR therapeutic 02/09: INR 2.45 today, cont to follow, possible dc tomorrow with HH, PT eval Assessment and Plan #Acute Hypoxic Respiratory Failure #Pulmonary edema #H/o COPD -Intubated in the ED on 02/02 fir airway protection -Chest x-ray reviewed, suggestive of pulmonary edema -likely secondary to CHF exacerbation -02/04 s/p extubation -Now stable on 4L NC -CCM consulted, appreciate recommendations -Continue IV lasix and Nebs treatment as needed -Aspiration precaution HOB above 30 -Continue O2 supplementation and wean as tolerated -Continue SPO2 monitoring for SPO2 goal above 90% -Bipap at night #Acute on chronic systolic heart failure with reduced ejection fraction #Dilated nonischemic Cardiomyopathy s/p AICD #Chronic Atrial fibrillation #h/o mechanical aortic and mitral valves #Noncompliant with Anticoagulation -TTE 10/2021: LVEF 30-35% -NTproBNP 3678, elevated Troponin X2 most like type 2 -Patient is Vpacing on the monitor, HR 70 -restarted aldactone, digoxin, metoprolol and lisinopril at home doses -IV lasix reduced to qday due to worsen renal function -Continue blood pressure monitor per protocol -Maintain MAP above 65 -Cardiology also consulted -patient was prescribed warfarin in the past, likely non-compliant given multiple subtheraputic INRs (current INR 1.17) -continue heparin gtt for now- bridge to coumadin -goal INR 2.5-3.5 #Acute Metabolic Encephalopathy-resolved -CT head negative for acute abnormality -UA unremarkable -Avoid benzodiazepine to reduce the possibility of delirium -PRN Analgesia for pain control -Maintenance of sleep-wake cycle #Positive Blood Culture -Blood culture + GPC in 1 out 4 bottles, probable cross contamination -Chest x-ray reviewed, suggestive of pulmonary edema -UA is unremarkable, sputum culture pending -Patient is afebrile, WBCs wnr -Repeat Blood cultures NGTD -Procal 0.47 -IV Vanco D/C -Continue to F/U on cultures -Daily CBC monitor -Consider ID consult if febrile or/and if leukocytosis occur #Rectus sheath hematoma #Rib fractures -seen on previous imaging on 01/31 ER visit -Most likely due to some sort of injury/fall -General surgery consulted, assistance appreciated -No plan for any surgical intervention at this time -On heparin gtt per protcol -H&H remains stable -Close monitoring of s/s of active bleeding #Hypoglycemia-improved -Low BG overnight, resolved this am -Enteral nutrition at goal this am -Continue BG check Q6hrs -Avoid Hypoglycemia -Continue Hypoglycemic protocol #Hypokalemia-improved -Patient is on IV lasix -K repleted -Monitor and replace electrolytes as needed #Hyperlipidemia -continue statin at home dose #GI/DVT Prophylaxis -PPI- Pepcid -Heparin gtt-bridging to coumadin Subjective Date of service: 02/09/22 Principal diagnosis: Altered mental status, respiratory failure Interval history: Patient seen and examined. Medical records and medication list reviewed. No acute event overnight noted by the RN. Patient remains on nasal cannula O2. Patient is tolerating diet. H&H stable, INR today 2.4 Discussed plan of care at bedside with patient. Objective - Exam Narrative Exam: General appearance: Present: no acute distress, obese - EENT Eyes: Present: PERRL, EOM intact ENT: hearing intact - Neck Neck: Present: normal ROM - Respiratory Respiratory effort: normal Respiratory: bilateral: wheezing - Cardiovascular Rhythm: regular Heart Sounds: Present: S1 & S2 - Extremities Extremities: no ischemia, pulses intact, pulses symmetrical Extremity abnormal: edema - Peripheral Assessment Generalized Edema Type: Non-pitting Edema Degree: 2+ Capillary Refill: < 3 seconds Skin Temperature: Warm Peripheral Pulses: within normal limits - Abdominal General gastrointestinal: soft, non-distended, normal bowel sounds - Integumentary Integumentary: Present: clear, warm, dry - Psychiatric Psychiatric: appropriate mood/affect, cooperative - Neurologic Neurologic: CNII-XII intact, moves all extremities, other (AAOX 3 ) - Constitutional Vitals: Vital Signs - 12hr 02/09/22 02/09/22 02/09/22 04:11 07:37 08:00 Temperature Pulse Rate 67 79 Respiratory 20 Rate Blood Pressure 132/67 O2 Sat by Pulse 94 98 Oximetry 02/09/22 02/09/22 02/09/22 08:06 08:13 09:02 Temperature 98.0 F 98.0 F Pulse Rate 70 86 Respiratory 18 18 Rate Blood Pressure 130/68 128/70 O2 Sat by Pulse 99 Oximetry 02/09/22 09:03 Temperature Pulse Rate 86 Respiratory Rate Blood Pressure O2 Sat by Pulse Oximetry - Labs CBC & Chem 7: 02/10/22 05:16 02/08/22 04:06 Labs: Abnormal lab results 02/08/22 02/08/22 02/09/22 Range/Units 12:12 23:15 06:01 PT 30.0 H (12.2-14.9) Sec. INR 2.47 H (0.87-1.13) Troponin T 0.062 H 0.058 H (0.00-0.029) ng/mL 02/09/22 Range/Units 06:01 PT (12.2-14.9) Sec. INR (0.87-1.13) Troponin T 0.045 H D (0.00-0.029) ng/mL HEART Score - HEART Score Troponin: Troponin T 0.045 ng/mL (0.00-0.029) H D 02/09/22 06:01
[2022-02-09] MEDS: oxyCODONE /ACETAMINOPHEN 5-325MG TAB PO PRN (13:27)
[2022-02-09] MEDS ORDERED: WARFARIN 5 MG TAB PO ONE (17:00)
[2022-02-09] MEDS: DIGOXIN 0.25 MG TAB PO SCH (17:12)
--- NOTE | 2022-02-09 21:24 | Electrocardiograph Report ---
[facility] Test Date: 2022-02-07 Test Time: 11:42:25 Pat Name: CED SEPULVEDA Department: Room: A464 1 Gender: F Nuclear Radiologist: LONG : 1965 Requested By: MELLISSA BETTENCOURT Order Number: [id number] Reading MD: Juan Antonio Pendleton Measurements Intervals [place] Rate: 70 P: 254 KS: 200 QRS: 158 QRSD: 174 T: 78 QT: 439 QTc: 474 Interpretive Statements Ventricular-paced rhythm Compared to ECG 02/02/2022 07:15:07 No significant change Electronically Signed On 02-09-2022 21:24:30 EDT by Juan Antonio Pendleton
[2022-02-09] MEDS: SENNOSIDES ORAL LIQD 8.8 MG/5 ML ORAL LIQD PO SCH (22:00)
[2022-02-10] MEDS: HEPARIN/ 0.45% NACL DRIP 25,000 UNIT/500 ML BAG IV SCH (00:20)
[2022-02-10] MEDS: FUROSEMIDE 40 MG/4 ML INJ IV SCH (05:42)
[2022-02-10 06:38] LABS: Hematocrit 37.4 % (30.3-42.9)
[2022-02-10 08:58] VITALS: BP 185/82
[2022-02-10] MEDS: DOCUSATE SODIUM 100 MG/10 ML ORAL LIQD PO SCH ×2 (09:52→09:53)
[2022-02-10] MEDS: oxyCODONE /ACETAMINOPHEN 5-325MG TAB PO PRN (09:52)
[2022-02-10] MEDS: FAMOTIDINE 10 MG TAB PO SCH (09:53)
[2022-02-10] MEDS: METOPROLOL TARTRATE 50 MG TAB PO SCH (09:53)
[2022-02-10] MEDS: GABAPENTIN 300 MG CAP PO SCH ×2 (09:53→13:58)
[2022-02-10] MEDS: SPIRONOLACTONE 25 MG TAB PO SCH (09:53)
[2022-02-10] MEDS: LISINOPRIL 10 MG TAB PO SCH (09:53)
--- NOTE | 2022-02-10 10:32 | Progress Note ---
Assessment and Plan - Patient Problems (1) Respiratory failure Current Visit: Yes Status: Acute Plan to address problem: Patient is status post respiratory failure, currently breathing comfortably on room air. (2) Dilated cardiomyopathy Current Visit: Yes Status: Acute Plan to address problem: Will resume guideline directed medical therapy as tolerated for chronic systolic left ventricular dysfunction. (3) H/O mechanical aortic valve replacement Current Visit: Yes Status: Acute Plan to address problem: Patient has mechanical mitral and aortic valve replacements, chronically noncompliant with warfarin. INR is now therapeutic at 2.47, will discontinue heparin and maintain warfarin for a target INR of 2.0-3.5. Subjective Date of service: 02/10/22 Principal diagnosis: Altered mental status, respiratory failure Interval history: Patient is comfortable with no acute respiratory distress, INR is now therapeutic at 2.47. Objective Vital Signs Temp Pulse Resp BP BP Pulse Ox 02/10/22 09:43 94 02/10/22 08:12 98.5 F 70 18 185/82 99 02/10/22 04:34 99.0 F 70 20 148/72 97 02/10/22 02:00 87 02/10/22 01:00 91 02/10/22 00:40 70 18 148/72 98 02/10/22 00:06 98.6 F 70 18 149/66 99 02/09/22 22:40 99 02/09/22 21:22 72 132/65 02/09/22 20:00 70 02/09/22 19:21 98.1 F 72 20 100 02/09/22 19:00 132/65 02/09/22 17:12 82 02/09/22 14:55 98.2 F 70 18 128/60 100 02/09/22 14:00 76 02/09/22 13:00 91 - Physical Examination General: No Apparent Distress HEENT: Positive: PERRL Neck: Positive: neck supple Cardiac: Positive: Reg Rate and Rhythm, Systolic Murmur Lungs: Positive: Decreased Breath Sounds Neuro: Positive: Grossly Intact Abdomen: Positive: Soft Skin: Positive: Clear Extremities: Absent: edema - Labs and Meds CBC 02/10/22 Range/Units 05:16 Hgb 11.0 (10.1-14.3) gm/dl Hct 37.4 (30.3-42.9) % Plt Count 309 (140-440) K/mm3 Pacemaker: ventricular pacing w/capt
--- NOTE | 2022-02-10 10:54 | Progress Note ---
Assessment and Plan 56 y/o female admitted with altered mental state and acute respiratory failure. 02/10/22: Will sign off. Call if questions. 02/07/22: No weaning of FIO2 being done. Will need walk test prior to discharge to assess O2 needs if any. Will see PRN over the weekend. 02/06/22: Wean FiO2 to off. Needs outpatient follow up for Polysomnogram as she has no diagnosis that would cover NIV out of hospital. Can see Sonu Ward or Kwesi. Will see as needed. Call if questions. 02/05/22: Pulm status stable on nasal cannula. No distress noted and no further episodes of stridor. Stable for transfer to the floor. 02/04/22: Attempt extubation today. Restart lasix and give IV dose prior to extubation. Bipap order for QHS and PRN given her degree of heart failure, she could have central ELVIRA. Continue anticoagulation. 1. Wean sedation as tolerated 2. SBT and awakening trials daily 3. Volume removal 4. Heparin for mechanical valve as INR is subtherapeutic 5. BP control CCT 31 minutes. Subjective Date of service: 02/10/22 Principal diagnosis: Altered mental status, respiratory failure Interval history: STable on room air. Objective Vital Signs - 12hr 02/10/22 02/10/22 02/10/22 00:06 00:40 01:00 Temperature 98.6 F Pulse Rate 70 70 Respiratory 18 18 Rate Blood Pressure 149/66 148/72 O2 Sat by Pulse 99 98 91 Oximetry 02/10/22 02/10/22 02/10/22 02:00 04:34 08:12 Temperature 99.0 F 98.5 F Pulse Rate 87 70 70 Respiratory 20 18 Rate Blood Pressure 148/72 185/82 O2 Sat by Pulse 97 99 Oximetry 02/10/22 09:43 Temperature Pulse Rate Respiratory Rate Blood Pressure O2 Sat by Pulse 94 Oximetry Constitutional: no acute distress, alert Eyes: non-icteric ENT: oropharynx moist Neck: supple Effort: normal Ascultation: Bilateral: clear Cardiovascular: regular rate and rhythm Gastrointestinal: normoactive bowel sounds, soft, non-tender, non-distended, other (obese) Extremities: no cyanosis Neurologic: normal mental status Psychiatric: mood appropriate, affect normal CBC and BMP: 02/10/22 05:16 02/08/22 04:06 ABG, PT/INR, D-dimer: ABG ABG pH 7.380 pH Units (7.350-7.450) 02/04/22 05:35 ABG pCO2 48.6 mm Hg 02/04/22 05:35 ABG pO2 67.0 mm Hg (80.0-90.0) L 02/04/22 05:35 ABG O2 Saturation 93.8 % (95.0-99.0) L 02/04/22 05:35 PT/INR, D-dimer PT 30.0 Sec. (12.2-14.9) H 02/09/22 06:01 INR 2.47 (0.87-1.13) H 02/09/22 06:01 Abnormal lab findings: Abnormal Labs 02/01/22 02/01/22 02/02/22 21:59 21:59 07:50 MCH 25 L RDW 19.0 H Lymph % (Auto) [place] % (Auto) 7.4 H Lymph # (Auto) 0.9 L Seg Neutrophils % 76.0 H PT 16.3 H INR 1.17 H Heparin Anti-Xa Level ABG pO2 ABG HCO3 ABG O2 Saturation ABG Hemoglobin Oxyhemoglobin Potassium 3.0 L BUN Creatinine POC Glucose Total Bilirubin 2.30 H ALT 6 L Troponin T C-Reactive Protein NT-Pro-B Natriuret Pep Total Protein 8.3 H Albumin 3.5 L HDL Cholesterol Salicylates Acetaminophen 02/02/22 02/02/22 02/02/22 07:50 07:50 08:07 MCH RDW Lymph % (Auto) [place] % (Auto) Lymph # (Auto) Seg Neutrophils % PT INR Heparin Anti-Xa Level ABG pO2 ABG HCO3 ABG O2 Saturation ABG Hemoglobin Oxyhemoglobin Potassium BUN Creatinine POC Glucose Total Bilirubin ALT Troponin T 0.077 H C-Reactive Protein NT-Pro-B Natriuret Pep 3678 H Total Protein Albumin HDL Cholesterol 38 L Salicylates < 0.3 L Acetaminophen 5.0 L 02/02/22 02/02/22 02/02/22 10:30 12:42 18:37 MCH RDW Lymph % (Auto) [place] % (Auto) Lymph # (Auto) Seg Neutrophils % PT INR Heparin Anti-Xa Level 0.10 L ABG pO2 153.8 H ABG HCO3 26.5 H ABG O2 Saturation ABG Hemoglobin 10.9 L Oxyhemoglobin Potassium BUN Creatinine POC Glucose 69 L Total Bilirubin ALT Troponin T C-Reactive Protein NT-Pro-B Natriuret Pep Total Protein Albumin HDL Cholesterol Salicylates Acetaminophen 02/02/22 02/03/22 02/03/22 23:24 03:57 03:57 MCH 25 L RDW 18.7 H Lymph % (Auto) 13.1 L [place] % (Auto) 10.6 H Lymph # (Auto) 0.9 L Seg Neutrophils % 71.7 H PT INR Heparin Anti-Xa Level ABG pO2 ABG HCO3 ABG O2 Saturation ABG Hemoglobin Oxyhemoglobin Potassium 3.3 L BUN Creatinine POC Glucose 60 L Total Bilirubin ALT Troponin T 0.094 H C-Reactive Protein NT-Pro-B Natriuret Pep Total Protein Albumin HDL Cholesterol Salicylates Acetaminophen 02/03/22 02/03/22 02/03/22 04:20 11:31 17:25 MCH RDW Lymph % (Auto) [place] % (Auto) Lymph # (Auto) Seg Neutrophils % PT INR Heparin Anti-Xa Level ABG pO2 ABG HCO3 26.6 H ABG O2 Saturation ABG Hemoglobin 11.3 L Oxyhemoglobin 94.8 L Potassium BUN Creatinine POC Glucose 113 H Total Bilirubin ALT Troponin T 0.092 H C-Reactive Protein 6.20 H NT-Pro-B Natriuret Pep Total Protein Albumin HDL Cholesterol Salicylates Acetaminophen 02/04/22 02/04/22 02/04/22 04:32 04:32 05:35 MCH 25 L RDW 18.6 H Lymph % (Auto) [place] % (Auto) Lymph # (Auto) Seg Neutrophils % PT INR Heparin Anti-Xa Level ABG pO2 67.0 L ABG HCO3 28.1 H ABG O2 Saturation 93.8 L ABG Hemoglobin 11.2 L Oxyhemoglobin 91.7 L Potassium BUN 19 H Creatinine 1.3 H POC Glucose Total Bilirubin ALT Troponin T C-Reactive Protein NT-Pro-B Natriuret Pep Total Protein Albumin HDL Cholesterol Salicylates Acetaminophen 02/04/22 02/04/22 02/05/22 17:37 20:51 05:09 MCH 25 L RDW 18.8 H Lymph % (Auto) [place] % (Auto) Lymph # (Auto) Seg Neutrophils % PT INR Heparin Anti-Xa Level < 0.10 L ABG pO2 ABG HCO3 ABG O2 Saturation ABG Hemoglobin Oxyhemoglobin Potassium BUN Creatinine POC Glucose 157 H Total Bilirubin ALT Troponin T C-Reactive Protein NT-Pro-B Natriuret Pep Total Protein Albumin HDL Cholesterol Salicylates Acetaminophen 02/05/22 02/05/22 02/05/22 05:09 05:09 09:18 MCH RDW Lymph % (Auto) [place] % (Auto) Lymph # (Auto) Seg Neutrophils % PT INR Heparin Anti-Xa Level 1.40 H < 0.10 L ABG pO2 ABG HCO3 ABG O2 Saturation ABG Hemoglobin Oxyhemoglobin Potassium BUN 23 H Creatinine 1.4 H POC Glucose Total Bilirubin ALT Troponin T C-Reactive Protein NT-Pro-B Natriuret Pep Total Protein Albumin HDL Cholesterol Salicylates Acetaminophen 02/05/22 02/05/22 02/06/22 09:18 13:28 06:03 MCH RDW Lymph % (Auto) [place] % (Auto) Lymph # (Auto) Seg Neutrophils % PT 15.0 H INR Heparin Anti-Xa Level 0.94 H ABG pO2 ABG HCO3 ABG O2 Saturation ABG Hemoglobin Oxyhemoglobin Potassium BUN 29 H Creatinine 1.5 H POC Glucose Total Bilirubin ALT Troponin T C-Reactive Protein NT-Pro-B Natriuret Pep Total Protein Albumin HDL Cholesterol Salicylates Acetaminophen 02/06/22 02/06/22 02/06/22 06:03 06:03 08:08 MCH 25 L RDW 19.1 H Lymph % (Auto) [place] % (Auto) Lymph # (Auto) Seg Neutrophils % PT 15.6 H INR Heparin Anti-Xa Level ABG pO2 ABG HCO3 ABG O2 Saturation ABG Hemoglobin Oxyhemoglobin Potassium BUN 29 H Creatinine 1.5 H POC Glucose Total Bilirubin ALT Troponin T C-Reactive Protein NT-Pro-B Natriuret Pep Total Protein Albumin HDL Cholesterol Salicylates Acetaminophen 02/07/22 02/07/22 02/07/22 04:50 10:38 12:36 MCH RDW Lymph % (Auto) [place] % (Auto) Lymph # (Auto) Seg Neutrophils % PT 16.1 H INR 1.16 H Heparin Anti-Xa Level ABG pO2 ABG HCO3 ABG O2 Saturation ABG Hemoglobin Oxyhemoglobin Potassium BUN 27 H Creatinine 1.5 H POC Glucose Total Bilirubin ALT Troponin T 0.073 H D C-Reactive Protein NT-Pro-B Natriuret Pep Total Protein Albumin HDL Cholesterol Salicylates Acetaminophen 02/08/22 02/08/22 02/08/22 04:06 04:06 12:12 MCH RDW Lymph % (Auto) [place] % (Auto) Lymph # (Auto) Seg Neutrophils % PT 20.2 H INR 1.52 H Heparin Anti-Xa Level ABG pO2 ABG HCO3 ABG O2 Saturation ABG Hemoglobin Oxyhemoglobin Potassium BUN 23 H Creatinine 1.4 H POC Glucose Total Bilirubin ALT Troponin T 0.062 H C-Reactive Protein NT-Pro-B Natriuret Pep Total Protein Albumin HDL Cholesterol Salicylates Acetaminophen 02/08/22 02/09/22 02/09/22 23:15 06:01 06:01 MCH RDW Lymph % (Auto) [place] % (Auto) Lymph # (Auto) Seg Neutrophils % PT 30.0 H INR 2.47 H Heparin Anti-Xa Level ABG pO2 ABG HCO3 ABG O2 Saturation ABG Hemoglobin Oxyhemoglobin Potassium BUN Creatinine POC Glucose Total Bilirubin ALT Troponin T 0.058 H 0.045 H D C-Reactive Protein NT-Pro-B Natriuret Pep Total Protein Albumin HDL Cholesterol Salicylates Acetaminophen 02/09/22 23:12 MCH RDW Lymph % (Auto) [place] % (Auto) Lymph # (Auto) Seg Neutrophils % PT INR Heparin Anti-Xa Level 0.20 L ABG pO2 ABG HCO3 ABG O2 Saturation ABG Hemoglobin Oxyhemoglobin Potassium BUN Creatinine POC Glucose Total Bilirubin ALT Troponin T C-Reactive Protein NT-Pro-B Natriuret Pep Total Protein Albumin HDL Cholesterol Salicylates Acetaminophen
--- NOTE | 2022-02-10 14:39 | Discharge Summary ---
Providers - Providers Date of Admission: 02/02/22 09:46 Date of discharge: 02/10/22 Attending physician: MELLISSA BETTENCOURT 02/02/22 07:10 Consult to Physician [CONS] Urgent Comment: Consulting Provider: HAN ECHAVARRIA Physician Instructions: Reason For Exam: rectus wall hematoma, rib fx 02/02/22 09:09 Consult to Dietitian/Nutrition [CONS] Routine Physician Instructions: Reason For Exam: Reason for Consult: Evaluate nutritional intake 02/02/22 10:35 PICC Line Insertion [Consult to PICC Line RN] [CONS] Stat Reason For Exam: iv access Type Line:: PICC 02/02/22 11:15 Consult to Dietitian/Nutrition [CONS] Routine Physician Instructions: Assess nutrtn needs, initiate, modify, manage TF Reason For Exam: Reason for Consult: Write/Manage Tube Feeding Reason for Consult: Write/Manage Tube Feeding 02/03/22 08:06 Consult to Physician [CONS] Routine Comment: Consulting Provider: LALA WATSON Physician Instructions: Reason For Exam: Elevated Troponin 02/05/22 08:05 Speech Therapy Evaluation and Treat [CONS] Routine Reason For Exam: Swallow Eval and treat 02/06/22 12:58 Physical Therapy Evaluation and Treat [CONS] Routine Comment: Reason For Exam: Debility Primary care physician: AVIATION NEUROPSYCHOLOGIST Hospitalization Condition: Critical Hospital course: This is a 56-year-old female with known past medical history of COPD, HTN, HLD, mechanical mitral and aortic valves replacement, CHF, nonischemic cardiomyopathy s/p AICD, and chronic atrial fibrillation, noncompliant with anticoagulation admitted on 02/02/22 for AMS and acute hypoxic respiratory failure requiring ventilator support. Hospital Course to Date: 02/03: Stable on the vent, sedation initiated overnight due to increase agitation. Wean sedation as tolerated, plan for possible SAT/SBT tomorrow. Blood culture positive GPC in 1 out 4 bottles, empiric IV antibiotics- Vanco initiated overnight. Patient remains afebrile, WBCs wnr, BP bordeline this am probably secondary to sedation. Continue empiric IV Abx for now, repeat Blood cultures, and will also check a procal. Periods of hypoglycemia overnight, TF at goal this am, continue BG check and hypoglycemic protocol. Patient remains on IV lasix BID, monitor renal function and electrolytes, replete as needed. 02/04: Remains on thevent on low dose sedation today,fentanyl at 1mcg. Following simple commands. This am ABG and CXR noted, IV lasix held due to low BP. Mild increase in scr this am, probably due to hypoperfusion, resume lasix and continue to monitor renal function. Plan for possible extubation today, BIPAP at night and PRN post extubation. 02/05: s/p extubation, stable on 4L NC. Continue Nebs treatment and O2 supplementation, wean as tolerated for SPO2 goal above 90%. Bipap at night. Patient remains afebrile with no leukocytosis, repeat blood culture are with NGTD, Procal 0.47. IV Vanco D/C. Renal function continue to worsen, Scr. 1.4 th is am. IV lasix reduced to qday, continue to monitor renal function for now. Patient remains on heparin gtt, plan to bridge to PO coumadin today, goal INR 2.5-3.5. PT/INR pending. D/C CCM patient is stable for transfer to telemetry. 02/06: wean off supplemental O2, PT eval, Cr trending up - follow BMP. Patient remains on heparin drip to bridge with Coumadin, follow INR 02/07: Patient remains subtherapeutic INR. Continue to monitor INR, continue Coumadin along with heparin drip to bridge. Wean off O2 as tolerated. Patient complains of chest pain today, ordered EKG and stat troponin. EKG unremarkable and no change from prior study we will continue to follow troponin 02/08: cont to monitor INR, discussed with sister by phone. plan to dc when INR therapeutic 02/09: INR 2.47 today, cont to follow, possible dc tomorrow with HH, PT eval. assess for home O2 requirement. 02/10: Patient clinically stable, plan to discharge home with home health. Discharge plan and management was thoroughly discussed with the patient and explained to be compliant with her Coumadin clinic and outpatient follow-up. Assessment and Plan #Acute Hypoxic Respiratory Failure #Pulmonary edema #H/o COPD -Intubated in the ED on 02/02 fir airway protection -Chest x-ray reviewed, suggestive of pulmonary edema -likely secondary to CHF exacerbation -02/04 s/p extubation -Now stable on 4L NC -[facility] consulted, appreciate recommendations -Continue IV lasix and Nebs treatment as needed -Aspiration precaution HOB above 30 -Continue O2 supplementation and wean as tolerated -Continue SPO2 monitoring for SPO2 goal above 90% -s/p Bipap at night as needed #Acute on chronic systolic heart failure with reduced ejection fraction #Dilated nonischemic Cardiomyopathy s/p AICD #Chronic Atrial fibrillation #h/o mechanical aortic and mitral valves #Noncompliant with Anticoagulation -TTE 10/2021: LVEF 30-35% -NTproBNP 3678, elevated Troponin X2 most like type 2 -Patient is Vpacing on the monitor, HR 70 -restarted aldactone, digoxin, metoprolol and lisinopril at home doses -IV lasix reduced to qday due to worsen renal function -Continue blood pressure monitor per protocol -Maintain MAP above 65 -Cardiology also consulted -patient was prescribed warfarin in the past, likely non-compliant given multiple subtheraputic INRs (current INR 1.17) -continue heparin gtt for now- bridge to coumadin -goal INR 2.5-3.5 #Acute Metabolic Encephalopathy-resolved -CT head negative for acute abnormality -UA unremarkable -Avoid benzodiazepine to reduce the possibility of delirium -PRN Analgesia for pain control -Maintenance of sleep-wake cycle #Positive Blood Culture -Blood culture + GPC in 1 out 4 bottles, probable cross contamination -Chest x-ray reviewed, suggestive of pulmonary edema -UA is unremarkable, sputum culture pending -Patient is afebrile, WBCs wnr -Repeat Blood cultures NGTD -Procal 0.47 -IV Vanco D/C -Continue to F/U on cultures -Daily CBC monitor -Consider ID consult if febrile or/and if leukocytosis occur #Rectus sheath hematoma #Rib fractures -seen on previous imaging on 01/31 ER visit -Most likely due to some sort of injury/fall -General surgery consulted, assistance appreciated -No plan for any surgical intervention at this time -On heparin gtt per protcol -H&H remains stable -Close monitoring of s/s of active bleeding #Hypoglycemia-improved -Low BG overnight, resolved this am -Enteral nutrition at goal this am -Continue BG check Q6hrs -Avoid Hypoglycemia -Continue Hypoglycemic protocol #Hypokalemia-improved -Patient is on IV lasix -K repleted -Monitor and replace electrolytes as needed #Hyperlipidemia -continue statin at home dose #GI/DVT Prophylaxis -PPI- Pepcid -Heparin gtt-bridging to coumadin Disposition: HOME HEALTH CARE SERVICE Final Discharge Diagnosis (Prints w/discharge instructions): #Acute Hypoxic Respiratory Failure. #Pulmonary edema. #H/o COPD. #Acute on chronic systolic heart failure with reduced ejection fraction. #Dilated nonischemic Cardiomyopathy s/p AICD. #Chronic Atrial fibrillation. #h/o mechanical aortic and mitral valves. #Noncompliant with Anticoagulation. -TTE 10/2021: LVEF 30- 35%. #Acute Metabolic Encephalopathy-resolved. #Positive Blood Culture. - Blood culture + GPC in 1 out 4 bottles, probable cross contamination. #Rectus sheath hematoma. #Rib fractures. #Hypoglycemia-improved. #Hypokalemia- improved. #Hyperlipidemia Time spent for discharge: 34 minutes Core Measure Documentation - Palliative Care Palliative Care/ Comfort Measures: Not Applicable - Core Measures Any of the following diagnoses?: none Exam - Physical Exam Narrative exam: General appearance: Present: no acute distress, obese - EENT Eyes: Present: PERRL, EOM intact ENT: hearing intact - Neck Neck: Present: normal ROM - Respiratory Respiratory effort: normal Respiratory: bilateral: wheezing - Cardiovascular Rhythm: regular Heart Sounds: Present: S1 & S2 - Extremities Extremities: no ischemia, pulses intact, pulses symmetrical Extremity abnormal: no edema - Abdominal General gastrointestinal: soft, non-distended, normal bowel sounds - Integumentary Integumentary: Present: clear, warm, dry - Psychiatric Psychiatric: appropriate mood/affect, cooperative - Neurologic Neurologic: CNII-XII intact, moves all extremities, other (AAOX 3 ) - Constitutional Vitals: Temp Pulse Resp BP Pulse Ox 98.5 F 70 18 185/82 94 02/10/22 08:12 02/10/22 08:12 02/10/22 08:12 02/10/22 08:12 02/10/22 09:43 Plan Activity: advance as tolerated Weight Bearing Status: Weight Bear as Tolerated Diet: low fat, low salt, diabetic Special Instructions: restrict fluid intake to (1.2L daily ) Follow up with: JACKSON PEMBERTON MD [Primary Care Provider] - 3-5 Days LALA WATSON MD [Staff Physician] - 7 Days Forms: Warfarin Discharge Instruction Prescriptions: Metoprolol [Lopressor TAB] 50 mg PO BID #60 tablet
[2022-02-10] MEDS ORDERED: WARFARIN 5 MG TAB PO NR (17:00)
== END 2022-02-10 16:52 | disposition home health service (06) | DRG 208 ==
LOC: ED 21:07 → CC1 02-02 09:46 → 4A 02-05 16:20
PROVIDERS: ADMIT Student in an Organized Health Care Education/Training Program; ATTEND Internal Medicine
PROC: 5A1945Z Respiratory Ventilation, 24-96 Consecutive Hours (ICD-10-PCS; principal; 2022-02-02)
PROC: 0BH17EZ Insertion of Endotracheal Airway into Trachea, Via Natural or Artificial Opening (ICD-10-PCS; 2022-02-02)
PROC: 4A033R1 Measurement of Arterial Saturation, Peripheral, Percutaneous Approach (ICD-10-PCS; 2022-02-02)
PROC: 5A09357 Assistance with Respiratory Ventilation, Less than 24 Consecutive Hours, Continuous Positive Airway Pressure (ICD-10-PCS; 2022-02-04)
PROC: 0BP1XDZ Removal of Intraluminal Device from Trachea, External Approach (ICD-10-PCS; 2022-02-04)
PROC: 5A09357 Assistance with Respiratory Ventilation, Less than 24 Consecutive Hours, Continuous Positive Airway Pressure (ICD-10-PCS; 2022-02-05)
PROC: 5A09357 Assistance with Respiratory Ventilation, Less than 24 Consecutive Hours, Continuous Positive Airway Pressure (ICD-10-PCS; 2022-02-08)
PROC: 5A09357 Assistance with Respiratory Ventilation, Less than 24 Consecutive Hours, Continuous Positive Airway Pressure (ICD-10-PCS; 2022-02-09)
PROC: 5A09357 Assistance with Respiratory Ventilation, Less than 24 Consecutive Hours, Continuous Positive Airway Pressure (ICD-10-PCS; 2022-02-10)
DX: J96.01 Acute respiratory failure with hypoxia (principal); G93.41 Metabolic encephalopathy; I50.23 Acute on chronic systolic (congestive) heart failure; I42.0 Dilated cardiomyopathy; E78.5 Hyperlipidemia, unspecified; I11.0 Hypertensive heart disease with heart failure; J44.9 Chronic obstructive pulmonary disease, unspecified; Z20.822 Contact with and (suspected) exposure to COVID-19; I48.20 Chronic atrial fibrillation, unspecified; E16.2 Hypoglycemia, unspecified; S22.39XA Fracture of one rib, unspecified side, initial encounter for closed fracture; G47.33 Obstructive sleep apnea (adult) (pediatric); E87.6 Hypokalemia; E66.9 Obesity, unspecified; S36.62XA Contusion of rectum, initial encounter; R79.1 Abnormal coagulation profile; X58.XXXA Exposure to other specified factors, initial encounter; Y93.89 Activity, other specified; Y92.89 Other specified places as the place of occurrence of the external cause; Y99.8 Other external cause status; Z91.14 Patient's other noncompliance with medication regimen; Z90.710 Acquired absence of both cervix and uterus; Z95.0 Presence of cardiac pacemaker; Z79.01 Long term (current) use of anticoagulants; Z95.2 Presence of prosthetic heart valve; Z68.41 Body mass index [BMI] 40.0-44.9, adult; Z79.899 Other long term (current) drug therapy
CPT/HCPCS: 36415; 36600; 70450; 71045; 74018; 80048; 80053; 80061; 80320; 81001; 82140; 82550; 82803; 82962; 83735; 83880; 84100; 84145; 84443; 84484; 85014; 85018; 85025; 85027; 85049; 85520; 85610; 85730; 86140; 87040; 87070; 87205; 93005; 94002; 94003; 94640; 94660; 94760; G0378; J3490; G0480; J0330; J1630; J1644; J1940; J2060; J2704; J2930; J3010; J3370; J3480; J7040

== ENCOUNTER 2022-03-07 03:47 | Emergency (ER) | payer MEDICAID ==
[2022-03-07 04:50] LABS: Basophils % (Auto) 0.7 % (0.0-1.8); Eosinophils % (Auto) 0.3 % (0.0-4.3); Hematocrit 32.4 % (30.3-42.9); Hemoglobin 10.4 gm/dl (10.1-14.3); Lymphocytes # (Auto) 1.4 K/mm3 (1.2-5.4); Lymphocytes % (Auto) 36.7 % (13.4-35.0); Mean Corpuscular HGB Conc 32 % (30-34); Mean Corpuscular Volume 79 fl (79-97); Monocytes # (Auto) 0.6 K/mm3 (0.0-0.8); Monocytes % (Auto) 14.9 % (0.0-7.3); Platelet Count 228 K/mm3 (140-440); Red Blood Count 4.12 M/mm3 (3.65-5.03)
[2022-03-07 04:51] LABS: Red Cell Distribution Width 21.4 % (13.2-15.2)
--- NOTE | 2022-03-07 04:53 | XRay Report ---
XR chest routine 2V INDICATION / CLINICAL INFORMATION: CHEST PAIN. COMPARISON: 02/04/2022 FINDINGS: SUPPORT DEVICES: Left-sided AICD. HEART /PULMONARY VASCULATURE: Sternotomy changes with cardiac valve prosthesis. There is cardiomegaly and pulmonary vasculature congestion. LUNGS / PLEURA: Moderate diffuse increased interstitial markings. Trace bibasilar pleural effusions. No focal airspace consolidation. No pneumothorax. ADDITIONAL FINDINGS: No significant additional findings. IMPRESSION: Findings indicative of CHF/volume overload with pulmonary edema and trace bibasilar pleural effusions . Signer Name: Merritt Bates MD Signed: 03/07/2022 4:49 AM Workstation Name: [id number]
[2022-03-07 05:15] LABS: Alanine Aminotransferase 12 units/L (7-56); Albumin 3.5 g/dL (3.9-5); BUN/Creatinine Ratio 9; Blood Urea Nitrogen 10 mg/dL (7-17); Calcium 9.3 mg/dL (8.4-10.2); Hemolysis Index 6
[2022-03-07 05:26] LABS: Chol/HDL Ratio 3.27 %; HDL Cholesterol 43 mg/dL (40-59); LDL Cholesterol,Direct 84 mg/dL (50-130)
[2022-03-07] MEDS ORDERED: oxyCODONE /ACETAMINOPHEN 5-325MG TAB PO ONE (10:03)
[2022-03-07 10:04] VITALS: BP 147/75
--- NOTE | 2022-03-07 10:43 | Emergency Department Report ---
ED Chest Pain HPI - General Chief Complaint: Chest Pain Stated Complaint: CHEST PAINS Time Seen by Provider: 03/07/22 08:12 Source: patient, EMS Mode of arrival: Ambulatory Limitations: No Limitations - History of Present Illness Initial Comments: 57-year-old female with known past medical history of COPD, HTN, HLD, mechanical mitral and aortic valves replacement, CHF, nonischemic cardiomyopathy s/p AICD, intubation secondary to acute hypoxic respiratory failure, and chronic atrial fibrillation with hx of noncompliance with coumadin presents to the hospital complaints of left-sided chest pain at area of pacemaker. Patient was last admitted here in January for acute respiratory failure requiring intubation. Patient states she had a pacemaker placed to her chest 1 week ago. Patient has constant pain that is worse with movement of the left arm and palpation of the chest wall. No associated symptoms reported. Patient states she is compliant with her Coumadin As per medical record it appears that patient has had a pacemaker/AICD placed for longer than a week and AICD is visible on previous x-rays. Wound also appears to be old and well-healed Severity scale (0 -10): 10 - Related Data Home Medications Medication Instructions Recorded Confirmed Last Taken Furosemide [Lasix] 40 mg PO QDAY 11/26/21 02/03/22 Unknown Warfarin Sodium 1 tab PO DAILY 11/26/21 02/03/22 Unknown Previous Rx's Medication Instructions Recorded Last Taken Type Gabapentin 300 mg PO TID #90 cap 06/18/19 Unknown Rx AtorvaSTATin [Lipitor] 40 mg PO QHS #30 tablet 11/27/21 Unknown Rx Digoxin [Lanoxin] 0.25 mg PO DAILY@1700 #30 tablet 11/27/21 Unknown Rx Docusate Sodium [Colace CAP] 100 mg PO BID PRN #60 capsule 11/27/21 Unknown Rx Spironolactone [Aldactone] 25 mg PO QDAY #30 tablet 11/27/21 Unknown Rx lisinopriL [Zestril TAB] 10 mg PO QDAY #30 tablet 11/27/21 Unknown Rx Metoprolol [Lopressor TAB] 50 mg PO BID #60 tablet 02/10/22 Unknown Rx Acetaminophen/Codeine [Tylenol 1 tab PO Q6H PRN #14 tab 03/07/22 Unknown Rx /Codeine # 3 tab] Allergies Allergy/AdvReac Type Severity Reaction Status Date / Time No Known Allergies Allergy Verified 11/26/21 08:08 Heart Score - HEART Score History: Slightly suspicious EKG: Non-specific Age: 45-65 Risk factors: > 3 risk factors or hx of atherosclerotic disease Troponin: < normal limit HEART Score: 4 - EKG Read Time Time EKG Completed: 04:02 EKG Read Time: 04:05 ED Review of Systems ROS: Stated complaint: CHEST PAINS Other details as noted in HPI Comment: All other systems reviewed and negative ED Past Medical Hx - Past Medical History Hx Hypertension: Yes Hx CVA: No Hx Heart Attack/AMI: No Hx Congestive Heart Failure: Yes Hx Diabetes: No Hx Deep Vein Thrombosis: Yes Hx Pulmonary Embolism: No Hx GERD: Yes (hiatal hernia) Hx Liver Disease: No Hx Renal Disease: No Hx Sickle Cell Disease: No Hx Arthritis: No Hx Headaches / Migraines: No Hx Seizures: No Hx Psychiatric Treatment: No Hx Asthma: No Hx COPD: Yes Hx Tuberculosis: No Hx Dementia: No Hx HIV: No Additional medical history: Crohn's disease. DILATED Cardiomyopathy. Life vest in place removed 2017-. hx DVT in LUE. HPLD. chronic pain - Surgical History Hx Coronary Stent: Yes Hx Open Heart Surgery: (mitral valve replacement (from old chart, pt. unsure)) Hx Pacemaker: Yes Hx Internal Defibrillator: Yes Hx Cholecystectomy: No Hx Appendectomy: No Hx Breast Surgery: No Additional Surgical History: bowel resection- December 2007, (3) Fissurectomies,. Hysterectomy. defibrillator placed 11/2015 ear surgery - Social History Smoking Status: Never Smoker - Medications Home Medications: Home Medications Medication Instructions Recorded Confirmed Last Taken Type Gabapentin 300 mg PO TID #90 cap 06/18/19 02/03/22 Unknown Rx Furosemide [Lasix] 40 mg PO QDAY 11/26/21 02/03/22 Unknown History Warfarin Sodium 1 tab PO DAILY 11/26/21 02/03/22 Unknown History AtorvaSTATin [Lipitor] 40 mg PO QHS #30 tablet 11/27/21 02/03/22 Unknown Rx Digoxin [Lanoxin] 0.25 mg PO DAILY@1700 #30 tablet 11/27/21 02/03/22 Unknown Rx Docusate Sodium [Colace CAP] 100 mg PO BID PRN #60 capsule 11/27/21 02/03/22 Unknown Rx Spironolactone [Aldactone] 25 mg PO QDAY #30 tablet 11/27/21 02/03/22 Unknown Rx lisinopriL [Zestril TAB] 10 mg PO QDAY #30 tablet 11/27/21 02/03/22 Unknown Rx Metoprolol [Lopressor TAB] 50 mg PO BID #60 tablet 02/10/22 Unknown Rx Acetaminophen/Codeine [Tylenol 1 tab PO Q6H PRN #14 tab 03/07/22 Unknown Rx /Codeine # 3 tab] ED Physical Exam - General Limitations: No Limitations - Other Other exam information: General: No acute distress Head: Atraumatic Eyes: normal appearance ENT: Moist mucous membranes Neck: Normal appearance, no midline tenderness Chest: Clear to auscultation bilaterally, AICD noted to left upper chest wall with well-healed scar. This appears to be a old well-healed surgical scar. Patient has tenderness around the pacemaker and extending upward the pectoralis muscle towards the shoulder. No warmth or erythema noted. No obvious fluid collection palpated CV: Irregular rhythm Abdomen: Soft, normal bowel sounds, nontender, nondistended, no rebound or guarding Back: Normal inspection Extremity: Normal inspection, full range of motion Neuro: Alert O x 3, no facial asymmetry, speech clear, no gross motor sensory deficit Psych: Appropriate behavior Skin: No rash ED Course Vital Signs 03/07/22 03/07/22 03/07/22 04:08 04:33 09:38 Temperature 98.9 F 98.9 F Pulse Rate 67 92 H 83 Respiratory 16 16 Rate Blood Pressure 154/64 145/73 Blood Pressure [Right] O2 Sat by Pulse 90 100 Oximetry 03/07/22 03/07/22 03/07/22 09:45 09:52 10:03 Temperature 98.2 F Pulse Rate 70 72 70 Respiratory 21 19 16 Rate Blood Pressure 156/69 151/79 Blood Pressure 147/75 [Right] O2 Sat by Pulse 94 95 96 Oximetry LION score - Lion Score Age > 65: (0) No Aspirin use within the Past 7 Days: (0) No 3 or more CAD Risk Factors: (1) Yes 2 or more Angina events in past 24 hrs: (0) No Known CAD with more than 50% Stenosis: (0) No Elevated Cardiac Markers: (0) No ST Deviation Greater than 0.5mm: (0) No LION Score: 1 ED Medical Decision Making - Lab Data Result diagrams: 03/07/22 04:24 03/07/22 04:24 Lab Results 03/07/22 03/07/22 03/07/22 Range/Units 04:24 04:24 07:12 WBC 3.8 L (4.5-11.0) K/mm3 RBC 4.12 (3.65-5.03) M/mm3 Hgb 10.4 (10.1-14.3) gm/dl Hct 32.4 (30.3-42.9) % MCV 79 (79-97) fl MCH 25 L (28-32) pg MCHC 32 (30-34) % RDW 21.4 H (13.2-15.2) % Plt Count 228 (140-440) K/mm3 Lymph % (Auto) 36.7 H (13.4-35.0) % Valley % (Auto) 14.9 H (0.0-7.3) % Eos % (Auto) 0.3 (0.0-4.3) % Baso % (Auto) 0.7 (0.0-1.8) % Lymph # (Auto) 1.4 (1.2-5.4) K/mm3 Valley # (Auto) 0.6 (0.0-0.8) K/mm3 Eos # (Auto) 0.0 (0.0-0.4) K/mm3 Baso # (Auto) 0.0 (0.0-0.1) K/mm3 Seg Neutrophils % 47.4 (40.0-70.0) % Seg Neutrophils # 1.8 (1.8-7.7) K/mm3 Sodium 140 (137-145) mmol/L Potassium 3.5 L (3.6-5.0) mmol/L Chloride 106.5 (98-107) mmol/L Carbon Dioxide 20 L (22-30) mmol/L Anion Gap 17 mmol/L BUN 10 (7-17) mg/dL Creatinine 1.1 (0.6-1.2) mg/dL Estimated GFR > 60 ml/min BUN/Creatinine Ratio 9 % Glucose 90 (65-100) mg/dL Calcium 9.3 (8.4-10.2) mg/dL Total Bilirubin 1.00 (0.1-1.2) mg/dL AST 22 (5-40) units/L ALT 12 (7-56) units/L Alkaline Phosphatase 112 (35-129) units/L Troponin T 0.032 H 0.032 H (0.00-0.029) ng/mL NT-Pro-B Natriuret Pep (0-900) pg/mL Total Protein 7.4 (6.3-8.2) g/dL Albumin 3.5 L (3.9-5) g/dL Albumin/Globulin Ratio 0.9 % Triglycerides 97 (2-149) mg/dL Cholesterol 141 (50-199) mg/dL LDL Cholesterol Direct 84 (50-130) mg/dL HDL Cholesterol 43 (40-59) mg/dL Cholesterol/HDL Ratio 3.27 % 03/07/22 03/07/22 Range/Units 09:25 09:25 WBC (4.5-11.0) K/mm3 RBC (3.65-5.03) M/mm3 Hgb (10.1-14.3) gm/dl Hct (30.3-42.9) % MCV (79-97) fl MCH (28-32) pg MCHC (30-34) % RDW (13.2-15.2) % Plt Count (140-440) K/mm3 Lymph % (Auto) (13.4-35.0) % Valley % (Auto) (0.0-7.3) % Eos % (Auto) (0.0-4.3) % Baso % (Auto) (0.0-1.8) % Lymph # (Auto) (1.2-5.4) K/mm3 Valley # (Auto) (0.0-0.8) K/mm3 Eos # (Auto) (0.0-0.4) K/mm3 Baso # (Auto) (0.0-0.1) K/mm3 Seg Neutrophils % (40.0-70.0) % Seg Neutrophils # (1.8-7.7) K/mm3 Sodium (137-145) mmol/L Potassium (3.6-5.0) mmol/L Chloride (98-107) mmol/L Carbon Dioxide (22-30) mmol/L Anion Gap mmol/L BUN (7-17) mg/dL Creatinine (0.6-1.2) mg/dL Estimated GFR ml/min BUN/Creatinine Ratio % Glucose (65-100) mg/dL Calcium (8.4-10.2) mg/dL Total Bilirubin (0.1-1.2) mg/dL AST (5-40) units/L ALT (7-56) units/L Alkaline Phosphatase (35-129) units/L Troponin T 0.025 (0.00-0.029) ng/mL NT-Pro-B Natriuret Pep 2235 H (0-900) pg/mL Total Protein (6.3-8.2) g/dL Albumin (3.9-5) g/dL Albumin/Globulin Ratio % Triglycerides (2-149) mg/dL Cholesterol (50-199) mg/dL LDL Cholesterol Direct (50-130) mg/dL HDL Cholesterol (40-59) mg/dL Cholesterol/HDL Ratio % - EKG Data -: EKG Interpreted by Me (Atrial flutter with ventricular paced complex) EKG shows normal: ST-T waves (no stemi) Rate: normal - Radiology Data Radiology results: report reviewed CT chest wo con HISTORY: pain around left pacemaker site, on coumadin COMPARISON: 06/14/2019 TECHNIQUE: Chest CT exam. All CT scans at this location are performed using CT dose reduction for ALARA by means of automated exposure control. FINDINGS: CT CHEST: Lungs: Bilateral linear peripheral bands most pronounced in the lung bases most consistent with scarring since similar prior exam. Trachea and Bronchi: No significant abnormality. Mediastinum/Lymph nodes: There is mediastinal lymphadenopathy which is similar to prior exam. Given that the findings are similar to that 19, it is most consistent benign etiology. Heart: Cardiomegaly. Transvenous left AICD. There is no significant abnormality in the surrounding soft tissues. Prior aortic valve replacement. Small quantity of coronary ath erosclerotic calcifications. Vasculature: Pulmonary vascular congestion. Mild scattered aortic a therosclerosis. Osseous Structures: No aggressive appearing osseous lesions. Additional Findings: None IMPRESSION: 1. Transvenous left AICD without significant abnormality in the surrounding soft tissues. 2. Cardiomegaly with pulmonary vascular congestion. - Medical Decision Making 57-year-old female presents to the hospital reproducible left upper chest wall pain around the area of her pacemaker. Contrary to patient's provided history the pacemaker site does not look new and is likely chronic. CT without contrast does not show any abnormality at the pacemaker site which includes no hematoma or fluid collection. Patient received Percocet for pain. Lab results show mild elevation in troponin which is chronic and stable in the ED. P.o. potassium provided for mild hypokalemia. 1 dose of p.o. Lasix provide for venous congestion noted on CT. Patient does not endorse shortness of breath at this time Critical Care Time: No Critical care attestation.: If time is entered above; I have spent that time in minutes in the direct care of this critically ill patient, excluding procedure time. ED Disposition Clinical Impression: Chest wall pain, Chronic CHF Disposition: HOME / SELF CARE / HOMELESS Is pt being admited?: No Condition: Stable Instructions: Chest Wall Pain, [id number] Additional Instructions: Take the medication as prescribed. Follow-up with your bacteriologist pharmaceutical. Return if symptoms worsen as indicated by your discharge instructions. Prescriptions: Acetaminophen/Codeine [Tylenol /Codeine # 3 tab] 1 tab PO Q6H PRN #14 tab PRN Reason: Pain , Severe (7-10) Referrals: RENATO SOSA MD [Primary Care Provider] - 3-5 Days LALA WATSON MD [Staff Physician] - 3-5 Days ([employer] Ware[employer] Supervisor) Time of Disposition: 12:13
--- NOTE | 2022-03-07 11:08 | Cat Scan Report ---
CT chest wo con HISTORY: pain around left pacemaker site, on coumadin COMPARISON: 06/14/2019 TECHNIQUE: Chest CT exam. All CT scans at this location are performed using CT dose reduction for ALA RA by means of automated exposure control. FINDINGS: CT CHEST: Lungs: Bilateral linear peripheral bands most pronounced in the lung bases most consistent with scarr ing since similar prior exam. Trachea and Bronchi: No significant abnormality. Mediastinum/Lymph nodes: There is mediastinal lymphadenopathy which is similar to prior exam. Given t hat the findings are similar to that 19, it is most consistent benign etiology. Heart: Cardiomegaly. Transvenous left AICD. There is no significant abnormality in the surrounding so ft tissues. Prior aortic valve replacement. Small quantity of coronary atherosclerotic calcifications . Vasculature: Pulmonary vascular congestion. Mild scattered aortic atherosclerosis. Osseous Structures : No aggressive appearing osseous lesions. Additional Findings: None IMPRESSION: 1. Transvenous left AICD without significant abnormality in the surrounding soft tissues. 2. Cardiomegaly with pulmonary vascular congestion. Signer Name: Joel Patel MD Signed: 03/07/2022 11:03 AM Workstation Name: [id number]
[2022-03-07] MEDS ORDERED: POTASSIUM CHLORIDE ER 20 MEQ TAB PO ONE (12:09)
[2022-03-07] MEDS ORDERED: FUROSEMIDE 20 MG TAB PO ONE (12:11)
--- NOTE | 2022-03-07 17:57 | Electrocardiograph Report ---
[facility] Test Date: 2022-03-07 Test Time: 04:02:44 Pat Name: CED SEPULVEDA Department: Room: Gender: F Assistant Center Manager: NURSE : 1965 Requested By: ROSARIO GARCIA Order Number: [id number] Reading MD: Juan Antonio Pendleton Measurements Intervals [place] Rate: 66 P: RI: QRS: 96 QRSD: 189 T: -6 QT: 464 QTc: 512 Interpretive Statements Ventricular paced complexes Compared to ECG 02/07/2022 11:42:25 No significant changes Electronically Signed On 03-07-2022 17:57:16 EDT by Juan Antonio Pendleton
== END 2022-03-07 13:34 | disposition home or self-care (01) ==
LOC: ED 03:47
DX: R07.89 Other chest pain (principal); I50.9 Heart failure, unspecified
CPT/HCPCS: 36415; 71046; 71250; 80053; 80061; 83880; 84484; 85025; 93005; 99285

== ENCOUNTER 2022-04-09 01:35 | Emergency (ER) | payer MEDICAID ==
[2022-04-09] MEDS ORDERED: SODIUM CHLORIDE 0.9% 1000 ML 1,000 ML IV ONE (02:51)
[2022-04-09] MEDS ORDERED: fentaNYL 100 MCG/2 ML INJ IV ONE ×2 (02:51→05:34)
[2022-04-09] MEDS ORDERED: ONDANSETRON 4 MG/2 ML INJ IV ONE (02:51)
--- NOTE | 2022-04-09 02:59 | Emergency Department Report ---
HPI - HPI HPI: Room 18 Patient is a 57-year-old female present with a chief complaint of abdominal pain. The patient states this afternoon at 1400 she developed epigastric abdominal pain this been constant and sharp in nature. Patient states the pain makes her short of breath. Patient mitts to nausea vomiting and diarrhea for the same time. Patient denies history of fever or dysuria. Patient currently gives her abdominal pain a score of 9.5/10 <BRADY BALDERRAMA - Last Filed: 04/09/22 04:58> <ROSARIO GARCIA - Last Filed: 04/09/22 08:12> - General Chief Complaint: Dyspnea/Respdistress Time Seen by Provider: 04/09/22 02:40 ED Past Medical Hx - Past Medical History Hx Hypertension: Yes Hx Congestive Heart Failure: Yes Hx Deep Vein Thrombosis: Yes Hx GERD: Yes (hiatal hernia) Hx COPD: Yes Additional medical history: Crohn's disease. DILATED Cardiomyopathy. Life vest in place removed 2017-. hx DVT in LUE. HPLD. chronic pain - Surgical History Hx Coronary Stent: Yes Hx Open Heart Surgery: (mitral valve replacement (from old chart, pt. unsure)) Hx Pacemaker: Yes Hx Internal Defibrillator: Yes Additional Surgical History: bowel resection- December 2007, (3) Fissurectomies,. Hysterectomy. defibrillator placed 11/2015 ear surgery - Family History Family history: no significant - Social History Smoking Status: Current Every Day Smoker (1/2 pack/day) Substance Use Type: None (Denies illicit drug use) <BRADY BALDERRAMA - Last Filed: 04/09/22 04:58> <ROSARIO GARCIA - Last Filed: 04/09/22 08:12> - Medications Home Medications: Home Medications Medication Instructions Recorded Confirmed Last Taken Type Gabapentin 300 mg PO TID #90 cap 06/18/19 02/03/22 Unknown Rx Furosemide [Lasix] 40 mg PO QDAY 11/26/21 02/03/22 Unknown History Warfarin Sodium 1 tab PO DAILY 11/26/21 02/03/22 Unknown History AtorvaSTATin [Lipitor] 40 mg PO QHS #30 tablet 11/27/21 02/03/22 Unknown Rx Digoxin [Lanoxin] 0.25 mg PO DAILY@1700 #30 tablet 11/27/21 02/03/22 Unknown Rx Docusate Sodium [Colace CAP] 100 mg PO BID PRN #60 capsule 11/27/21 02/03/22 Unknown Rx Spironolactone [Aldactone] 25 mg PO QDAY #30 tablet 11/27/21 02/03/22 Unknown Rx lisinopriL [Zestril TAB] 10 mg PO QDAY #30 tablet 11/27/21 02/03/22 Unknown Rx Metoprolol [Lopressor TAB] 50 mg PO BID #60 tablet 02/10/22 Unknown Rx Acetaminophen/Codeine [Tylenol 1 tab PO Q6H PRN #14 tab 03/07/22 Unknown Rx /Codeine # 3 tab] Ondansetron [Zofran Odt] 4 mg PO Q8HR PRN #20 tab.rapdis 04/09/22 Unknown Rx oxyCODONE /ACETAMINOPHEN [Percocet 1 tab PO Q6HR PRN #15 tablet 04/09/22 Unknown Rx 5/325] ED Review of Systems ROS: Stated complaint: KEN Other details as noted in HPI Constitutional: denies: fever Eyes: denies: eye pain ENT: denies: throat pain Respiratory: shortness of breath Cardiovascular: denies: chest pain Endocrine: no symptoms reported Gastrointestinal: abdominal pain, nausea, vomiting, diarrhea Genitourinary: denies: dysuria Musculoskeletal: denies: back pain Neurological: denies: headache <BRADY BALDERRAMA K - Last Filed: 04/09/22 04:58> ROS: Stated complaint: KEN Other details as noted in HPI <ROSARIO GARCIA C - Last Filed: 04/09/22 08:12> Physical Exam - Physical Exam Vital Signs: Vital Signs 04/09/22 02:01 Temperature 97.8 F Pulse Rate 78 Respiratory 16 Rate Blood Pressure 141/72 [Right] O2 Sat by Pulse 94 Oximetry Physical Exam: GENERAL: The patient is well-developed well-nourished female lying on stretcher not appear to be in acute. [] HEENT: Normocephalic. Atraumatic. Extraocular motions are intact. Patient has moist mucous membranes. NECK: Supple. Trachea midline CHEST/LUNGS: Clear to auscultation. There is no respiratory distress noted. HEART/CARDIOVASCULAR: Regular. There is no tachycardia. There is no gallop rub or murmur. ABDOMEN: Abdomen is soft, with tenderness to palpation of right upper quadrant and epigastric region. Patient has normal bowel sounds. There is no abdominal distention. SKIN: There is no rash. There is no edema. There is no diaphoresis. NEURO: The patient is awake, alert, and oriented. The patient is cooperative. The patient has no focal neurologic deficits. The patient has normal speech. GCS 15 MUSCULOSKELETAL: There is no evidence of acute injury. <BRADY BALDERRAMA - Last Filed: 04/09/22 04:58> - Physical Exam Vital Signs: Vital Signs 04/09/22 02:01 Temperature 97.8 F Pulse Rate 78 Respiratory 16 Rate Blood Pressure 141/72 [Right] O2 Sat by Pulse 94 Oximetry <ROSARIO GARCIA - Last Filed: 04/09/22 08:12> ED Course Vital Signs 04/09/22 02:01 Temperature 97.8 F Pulse Rate 78 Respiratory 16 Rate Blood Pressure 141/72 [Right] O2 Sat by Pulse 94 Oximetry <BRADY BALDERRAMA - Last Filed: 04/09/22 04:58> Vital Signs 04/09/22 02:01 Temperature 97.8 F Pulse Rate 78 Respiratory 16 Rate Blood Pressure 141/72 [Right] O2 Sat by Pulse 94 Oximetry - Reevaluation(s) Reevaluation #1: 04/09/22 07:07 57-year-old female presents to the hospital right sided abdominal pain with his tory of rectus abdominal sheath hematoma. Patient is sleeping. When I wake patient up she complains of continued pain that is reproducible with palpation. CT once again shows rectus abdominal sheath hematoma that has decreased in size compared to previous scan. Patient states she was last prescribed Percocet but ran out 2 weeks ago and pain has been worse for the last 2 days. She denies current shortness of breath 2-1/2 L nasal cannula. Dilaudid 0.5 mg ordered. Patient will be discharged with prescriptions for pain <ROSARIO GARCIA - Last Filed: 04/09/22 08:12> ED Medical Decision Making - Lab Data Result diagrams: 04/09/22 03:29 04/09/22 03:29 - Radiology Data Radiology results: report reviewed (Chest x-ray), image reviewed (Chest x-ray) interpreted by me: Chest x-ray-no definite focal infiltrate, no pneumothorax [facility] [address] [place] [address] XRay Report Signed Patient: CED SEPULVEDA MR#: [id number] : 1965 Acct:[id number] Age/Sex: 57 / F ADM Date: 04/09/22 Loc: ED Attending Dr: Ordering Physician: BRADY BALDERRAMA MD Date of Service: 04/09/22 Procedure(s): XR chest 1V ap Accession Number(s): [id number] cc: BRADY BALDERRAMA MD Fluoro Time In Minutes: XR chest 1V ap INDICATION / CLINICAL INFORMATION: Shortness of breath. COMPARISON: 03/07/2022 FINDINGS: SUPPORT DEVICES: Left-sided cardiac conduction device. HEART /PULMONARY VASCULATURE: Cardiac prosthesis. There are are media sternotomy changes. Heart is enlarged with pulmonary vasculature congestion. LUNGS / PLEURA: Diffuse increased interstitial prominence, likely reflecting edema. No focal airspace consolidation. No sizable pleural effusion. No pneumothorax. IMPRESSION: Findings indicative CHF/volume overload with pulmonary edema. Signer Name: Lilliam Bates MD Signed: 04/09/2022 4:29 AM Workstation Name: [id number] Transcribed By: JS Dictated By: LILLIAM BATES MD Electronically Authenticated By: LILLIAM BATES MD Signed Date/Time: 04/09/22428 DD/ 6 TD/TT: - Differential Diagnosis Crohn's flare, UTI, ACS, pancreatitis, anxiety <BRADY BALDERRAMA - Last Filed: 04/09/22 04:58> - Lab Data Result diagrams: 04/09/22 03:29 04/09/22 03:29 - Radiology Data Radiology results: report reviewed CT abdomen pelvis w con INDICATION / CLINICAL INFORMATION: Upper abdominal pain, history of Crohn's. TECHNIQUE: Axial CT images were obtained through the abdomen and pelvis after 80 cc of Omnipaque [address] scans at this location are performed using CT dose reduction for ALARA by means of automated exposure control. COMPARISON: 01/30/2022 FINDINGS: LOWER CHEST: Heart is enlarged with cardiac conduction device. No pericardial effusion. Mitral valve prosthesis. Bibasilar interstitial edema and atelectasis. No focal consolidation. LIVER: No significant abnormality GALLBLADDER/BILIARY TREE: Cholecystectomy. PANCREAS: No significant abnormality SPLEEN: No significant abnormality ADRENALS: No significant abnormality RIGHT KIDNEY / URETER: No significant abnormality LEFT KIDNEY / URETER: No significant abnormality URINARY BLADDER: No significant abnormality REPRODUCTIVE ORGANS: No significant abnormality STOMACH / BOWEL: Postoperative changes of the stomach appear stable. Stomach and small bowel demonstrate no evidence of acute abnormality. The colon is unremarkable. The appendix is normal in caliber. LYMPH NODES: No significant adenopathy. VASCULATURE: No significant abnormality. OTHER: Again seen, there is asymmetric enlargement of the right rectus abdominis muscle, compatible with rectus sheath hematoma. This measures 7.0 x 3.0 x 7.2 cm (transverse by AP by craniocaudal); previously measured 10.5 x 5.6 x 10.2 cm. Diffuse body wall edema remains. No intra-abdominal free air, free fluid, or focal fluid collection. SKELETAL SYSTEM: No acute osseous findings. Remote right posterior 10th through 12th rib fractures and healing fractures of the right L1-L3 transverse processes. Partial ankylosis at T11-T12 again noted. Grade 1 anterolisthesis of L4-L5 likely degenerative, also unchanged IMPRESSION: 1. Decreased size of right rectus sheath hematoma compared to prior CT from 01/30/2022. 2. No acute intra-abdominal findings. No evidence of localized bowel inflammation. 3. CHF/volume overload with interstitial edema and atelectasis. 4. Additional stable chronic and incidental findings as above. <ROSARIO GARCIA - Last Filed: 04/09/22 08:12> Critical care attestation.: If time is entered above; I have spent that time in minutes in the direct care of this critically ill patient, excluding procedure time. <BRADY BALDERRAMA K - Last Filed: 04/09/22 04:58> Critical care attestation.: If time is entered above; I have spent that time in minutes in the direct care of this critically ill patient, excluding procedure time. <ROSARIO GARCIA - Last Filed: 04/09/22 08:12> ED Disposition <BRADY BALDERRAMA - Last Filed: 04/09/22 04:58> Is pt being admited?: No Does the pt Need Aspirin: No Time of Disposition: 08:10 <ROSARIO GARCIA - Last Filed: 04/09/22 08:12> Clinical Impression: Rectus sheath hematoma, Chronic abdominal pain Disposition: HOME / SELF CARE / HOMELESS Condition: Stable Instructions: Abdominal Pain, Adult, [id number] Additional Instructions: Take the medication as prescribed. Follow-up with your doctor or doctor/clinic provided. Return if symptoms worsen as indicated by your discharge instructions. Prescriptions: oxyCODONE /ACETAMINOPHEN [Percocet 5/325] 1 tab PO Q6HR PRN #15 tablet PRN Reason: Pain Ondansetron [Zofran Odt] 4 mg PO Q8HR PRN #20 tab.rapdis PRN Reason: Nausea And Vomiting Referrals: your, doctor [Other] - 3-5 Days
[2022-04-09 03:52] LABS: Basophils % (Auto) 0.7 % (0.0-1.8); Eosinophils # (Auto) 0.3 K/mm3 (0.0-0.4); Eosinophils % (Auto) 5.4 % (0.0-4.3); Hematocrit 34.6 % (30.3-42.9); Hemoglobin 11.2 gm/dl (10.1-14.3); Lymphocytes # (Auto) 1.3 K/mm3 (1.2-5.4); Lymphocytes % (Auto) 21.6 % (13.4-35.0); Mean Corpuscular HGB Conc 32 % (30-34); Mean Corpuscular Volume 79 fl (79-97); Monocytes # (Auto) 0.6 K/mm3 (0.0-0.8); Monocytes % (Auto) 9.3 % (0.0-7.3); Platelet Count 340 K/mm3 (140-440); Red Blood Count 4.35 M/mm3 (3.65-5.03)
[2022-04-09 03:57] LABS: Red Cell Distribution Width 23.7 % (13.2-15.2)
[2022-04-09 04:02] LABS: INR 1.25 (0.87-1.13)
[2022-04-09 04:03] LABS: Partial Thromboplastin Time 36.3 Sec. (24.2-36.6)
[2022-04-09 04:05] LABS: Creatine Kinase MB 1.6 ng/mL (0.0-4.0)
[2022-04-09 04:06] LABS: Albumin 3.7 g/dL (3.9-5); BUN/Creatinine Ratio 14; Blood Urea Nitrogen 14 mg/dL (7-17); Calcium 9.2 mg/dL (8.4-10.2); Hemolysis Index 7
[2022-04-09 04:17] LABS: Alanine Aminotransferase < 5 units/L (7-56)
--- NOTE | 2022-04-09 04:33 | XRay Report ---
XR chest 1V ap INDICATION / CLINICAL INFORMATION: Shortness of breath. COMPARISON: 03/07/2022 FINDINGS: SUPPORT DEVICES: Left-sided cardiac conduction device. HEART /PULMONARY VASCULATURE: Cardiac prosthesis. There are are media sternotomy changes. Heart is en larged with pulmonary vasculature congestion. LUNGS / PLEURA: Diffuse increased interstitial prominence, likely reflecting edema. No focal airspace consolidation. No sizable pleural effusion. No pneumothorax. IMPRESSION: Findings indicative CHF/volume overload with pulmonary edema. Signer Name: Merritt Bates MD Signed: 04/09/2022 4:29 AM Workstation Name: [id number]
[2022-04-09] MEDS ORDERED: FUROSEMIDE 40 MG/4 ML INJ IV ONE (04:59)
[2022-04-09 05:41] LABS: WBC,Urine < 1.0 /HPF (0.0-6.0)
[2022-04-09 06:12] LABS: Bilirubin,Urine Negative (Negative); Blood,Urine Negative (Negative); Color,Urine Yellow (Yellow); Protein,Urine <15 mg/dL mg/dL (Negative); RBC,Urine < 1.0 /HPF (0.0-6.0); Urobilinogen,Urine < 2.0 mg/dL (<2.0)
--- NOTE | 2022-04-09 06:31 | Cat Scan Report ---
CT abdomen pelvis w con INDICATION / CLINICAL INFORMATION: Upper abdominal pain, history of Crohn's. TECHNIQUE: Axial CT images were obtained through the abdomen and pelvis after 80 cc of Omnipaque [address] scans at this location are performed using CT dose reduction for ALARA by means of automated exposure control. COMPARISON: 01/30/2022 FINDINGS: LOWER CHEST: Heart is enlarged with cardiac conduction device. No pericardial effusion. Mitral valve prosthesis. Bibasilar interstitial edema and atelectasis. No focal consolidation. LIVER: No significant abnormality GALLBLADDER/BILIARY TREE: Cholecystectomy. PANCREAS: No significant abnormality SPLEEN: No significant abnormality ADRENALS: No significant abnormality RIGHT KIDNEY / URETER: No significant abnormality LEFT KIDNEY / URETER: No significant abnormality URINARY BLADDER: No significant abnormality REPRODUCTIVE ORGANS: No significant abnormality STOMACH / BOWEL: Postoperative changes of the stomach appear stable. Stomach and small bowel demonstr ate no evidence of acute abnormality. The colon is unremarkable. The appendix is normal in caliber. LYMPH NODES: No significant adenopathy. VASCULATURE: No significant abnormality. OTHER: Again seen, there is asymmetric enlargement of the right rectus abdominis muscle, compatible w ith rectus sheath hematoma. This measures 7.0 x 3.0 x 7.2 cm (transverse by AP by craniocaudal); prev iously measured 10.5 x 5.6 x 10.2 cm. Diffuse body wall edema remains. No intra-abdominal free air, f ree fluid, or focal fluid collection. SKELETAL SYSTEM: No acute osseous findings. Remote right posterior 10th through 12th rib fractures an d healing fractures of the right L1-L3 transverse processes. Partial ankylosis at T11-T12 again noted . Grade 1 anterolisthesis of L4-L5 likely degenerative, also unchanged IMPRESSION: 1. Decreased size of right rectus sheath hematoma compared to prior CT from 01/30/2022. 2. No acute intra-abdominal findings. No evidence of localized bowel inflammation. 3. CHF/volume overload with interstitial edema and atelectasis. 4. Additional stable chronic and incidental findings as above. Signer Name: Merritt Bates MD Signed: 04/09/2022 6:27 AM Workstation Name: [id number]
[2022-04-09] MEDS ORDERED: HYDROmorphone 0.5 MG/0.5 ML INJ IV ONE (07:06)
[2022-04-09 10:25] VITALS: BP 133/74
[2022-04-09] MEDS ORDERED: oxyCODONE /ACETAMINOPHEN 5-325MG TAB PO ONE (11:09)
--- NOTE | 2022-04-09 11:19 | Electrocardiograph Report ---
[facility] Test Date: 2022-04-09 Test Time: 03:51:34 Pat Name: CED SEPULVEDA Department: Room: Gender: F Porter Head: SHERIF : 1965 Requested By: BRADY BALDERRAMA Order Number: [id number] Reading MD: Cheikh Le Measurements Intervals [place] Rate: 76 P: 11 MA: 227 QRS: -72 QRSD: 193 T: 34 QT: 479 QTc: 540 Interpretive Statements Atrial-sensed ventricular-paced rhythm Compared to ECG 03/07/2022 04:02:44 No significant changes Electronically Signed On 04-09-2022 11:18:58 EDT by Cheikh Le
== END 2022-04-09 14:16 | disposition home or self-care (01) ==
LOC: ED 01:35
DX: S30.1XXA Contusion of abdominal wall, initial encounter (principal); G89.29 Other chronic pain; I11.0 Hypertensive heart disease with heart failure; I50.9 Heart failure, unspecified; K21.9 Gastro-esophageal reflux disease without esophagitis; J44.9 Chronic obstructive pulmonary disease, unspecified; F17.210 Nicotine dependence, cigarettes, uncomplicated; Z98.890 Other specified postprocedural states; Z79.899 Other long term (current) drug therapy; X58.XXXA Exposure to other specified factors, initial encounter; Y93.89 Activity, other specified; Y92.89 Other specified places as the place of occurrence of the external cause; Y99.8 Other external cause status
CPT/HCPCS: 36415; 71045; 74177; 80053; 80162; 81001; 82550; 82553; 83690; 84484; 85025; 85610; 85730; 93005; 96361; 96374; 96375; 96376; 99285; J1170; J1940; J2405; J3010; J7030; Q9967

== ENCOUNTER 2022-04-15 02:58 | Emergency (ER) | payer MEDICAID ==
[2022-04-15 03:14] VITALS: BP 160/80
== END 2022-04-15 17:04 | disposition left against medical advice (07) ==
LOC: ED 02:58
DX: R10.9 Unspecified abdominal pain (principal); Z53.21 Procedure and treatment not carried out due to patient leaving prior to being seen by health care provider

== ENCOUNTER 2022-04-29 05:03 | Emergency (ER) | payer MEDICAID ==
[2022-04-29 05:16] VITALS: BP 150/82
[2022-04-29] MEDS ORDERED: fentaNYL 100 MCG/2 ML INJ IV ONE ×2 (07:22→10:15)
[2022-04-29] MEDS ORDERED: ONDANSETRON 4 MG/2 ML INJ IV ONE (07:22)
--- NOTE | 2022-04-29 07:33 | Emergency Department Report ---
HPI - General Chief Complaint: Dyspnea/Respdistress Time Seen by Provider: 04/29/22 07:15 - HPI HPI: Room 25 The patient is a 57-year-old female present with a chief complaint of "my Crohn's is acting up." The patient states she came to the emergency department because for the past 2 days she has had diffuse abdominal cramping has been intermittent and associated with nausea without vomiting. Patient denies history of fever. Patient denies diarrhea. The patient currently gives her abdominal pain a score of "100/10." ED Past Medical Hx - Past Medical History Hx Hypertension: Yes Hx Congestive Heart Failure: Yes Hx Deep Vein Thrombosis: Yes Hx GERD: Yes (hiatal hernia) Hx COPD: Yes Additional medical history: Crohn's disease. DILATED Cardiomyopathy. Life vest in place removed 2017-. hx DVT in LUE. HPLD. chronic pain - Surgical History Hx Coronary Stent: Yes Hx Open Heart Surgery: (mitral valve replacement (from old chart, pt. unsure)) Hx Pacemaker: Yes Hx Internal Defibrillator: Yes Additional Surgical History: bowel resection- December 2007, (3) Fissurectomies,. Hysterectomy. defibrillator placed 11/2015 ear surgery - Family History Family history: no significant - Social History Smoking Status: Current Every Day Smoker (1/2 pack/day) Substance Use Type: None (Denies illicit drug use) - Medications Home Medications: Home Medications Medication Instructions Recorded Confirmed Last Taken Type Gabapentin 300 mg PO TID #90 cap 06/18/19 02/03/22 Unknown Rx Furosemide [Lasix] 40 mg PO QDAY 11/26/21 02/03/22 Unknown History Warfarin Sodium 1 tab PO DAILY 11/26/21 02/03/22 Unknown History AtorvaSTATin [Lipitor] 40 mg PO QHS #30 tablet 11/27/21 02/03/22 Unknown Rx Digoxin [Lanoxin] 0.25 mg PO DAILY@1700 #30 tablet 11/27/21 02/03/22 Unknown Rx Docusate Sodium [Colace CAP] 100 mg PO BID PRN #60 capsule 11/27/21 02/03/22 Unknown Rx Spironolactone [Aldactone] 25 mg PO QDAY #30 tablet 11/27/21 02/03/22 Unknown Rx lisinopriL [Zestril TAB] 10 mg PO QDAY #30 tablet 11/27/21 02/03/22 Unknown Rx Metoprolol [Lopressor TAB] 50 mg PO BID #60 tablet 02/10/22 Unknown Rx Acetaminophen/Codeine [Tylenol 1 tab PO Q6H PRN #14 tab 03/07/22 Unknown Rx /Codeine # 3 tab] Ondansetron [Zofran Odt] 4 mg PO Q8HR PRN #20 tab.rapdis 04/09/22 Unknown Rx oxyCODONE /ACETAMINOPHEN [Percocet 1 tab PO Q6HR PRN #15 tablet 04/09/22 Unk nown Rx 5/325] ED Review of Systems ROS: Stated complaint: DIFFICULTY BREATHING Other details as noted in HPI Constitutional: denies: fever Eyes: denies: eye pain ENT: denies: throat pain Respiratory: no symptoms reported Cardiovascular: denies: chest pain Endocrine: no symptoms reported Gastrointestinal: abdominal pain, nausea. denies: vomiting, diarrhea Genitourinary: denies: dysuria Musculoskeletal: denies: back pain Neurological: denies: headache Physical Exam - Physical Exam Vital Signs: Vital Signs 04/29/22 05:15 Temperature 98.2 F Pulse Rate 78 Respiratory 16 Rate Blood Pressure 150/82 [Right] O2 Sat by Pulse 98 Oximetry Physical Exam: GENERAL: The patient is well-developed well-nourished female lying in stretcher not appearing to be in acute distress. [] HEENT: Normocephalic. Atraumatic. Extraocular motions are intact. Patient has moist mucous membranes. NECK: Supple. Trachea midline CHEST/LUNGS: Clear to auscultation. There is no respiratory distress noted. HEART/CARDIOVASCULAR: Regular. There is no tachycardia. There is no gallop rub or murmur. ABDOMEN: Abdomen is soft, with tenderness to palpation in the right upper quadrant, right lower quadrant and left upper quadrant. There is no rebound or guard. Patient has normal bowel sounds. There is no abdominal distention. SKIN: There is no rash. There is no edema. There is no diaphoresis. NEURO: The patient is awake, alert, and oriented. The patient is cooperative. The patient has no focal neurologic deficits. The patient has normal speech. GCS 15 MUSCULOSKELETAL: There is no evidence of acute injury. ED Course Vital Signs 04/29/22 05:15 Temperature 98.2 F Pulse Rate 78 Respiratory 16 Rate Blood Pressure 150/82 [Right] O2 Sat by Pulse 98 Oximetry - Reevaluation(s) Reevaluation #1: 04/29/22 12:16 Informed by nursing that patient has eloped before CT abdomen pelvis could be performed ED Medical Decision Making - Lab Data Result diagrams: 04/29/22 07:25 04/29/22 07:25 Laboratory Tests 04/29/22 04/29/22 04/29/22 07:25 07:25 07:26 WBC 5.7 RBC 4.17 Hgb 10.5 Hct 34.2 MCV 82 MCH 25 L MCHC 31 RDW 22.8 H Plt Count 254 Lymph % (Auto) 17.2 [place] % (Auto) 8.7 H Eos % (Auto) 4.9 H Baso % (Auto) 0.8 Lymph # (Auto) 1.0 L [place] # (Auto) 0.5 Eos # (Auto) 0.3 Baso # (Auto) 0.0 Seg Neutrophils % 68.4 Seg Neutrophils # 3.9 PT 15.0 H INR 1.06 APTT 33.6 Sodium 142 Potassium 3.7 Chloride 109.2 H Carbon Dioxide 22 Anion Gap 15 BUN 9 Creatinine 1.0 Estimated GFR > 60 BUN/Creatinine Ratio 9 Glucose 80 Calcium 9.5 Total Bilirubin 1.80 H AST 16 ALT 6 L Alkaline Phosphatase 91 Total Protein 6.8 Albumin 3.9 Albumin/Globulin Ratio 1.3 Lipase 10 L - Differential Diagnosis Crohn's flare, partial small bowel obstruction Critical care attestation.: If time is entered above; I have spent that time in minutes in the direct care of this critically ill patient, excluding procedure time. ED Disposition Clinical Impression: Acute abdominal pain Disposition: LEFT AGAINST MEDICAL ADVICE Is pt being admited?: No Does the pt Need Aspirin: No Condition: Undetermined Referrals: PRIMARY CARE, [Primary Care Provider] - 3-5 Days Time of Disposition: 12:17 (Patient eloped earlier)
[2022-04-29 08:06] LABS: Basophils % (Auto) 0.8 % (0.0-1.8); Eosinophils # (Auto) 0.3 K/mm3 (0.0-0.4); Eosinophils % (Auto) 4.9 % (0.0-4.3); Hematocrit 34.2 % (30.3-42.9); Hemoglobin 10.5 gm/dl (10.1-14.3); Lymphocytes % (Auto) 17.2 % (13.4-35.0); Mean Corpuscular HGB Conc 31 % (30-34); Mean Corpuscular Volume 82 fl (79-97); Monocytes # (Auto) 0.5 K/mm3 (0.0-0.8); Monocytes % (Auto) 8.7 % (0.0-7.3); Platelet Count 254 K/mm3 (140-440); Red Blood Count 4.17 M/mm3 (3.65-5.03)
[2022-04-29 08:22] LABS: Alanine Aminotransferase 6 units/L (7-56); Albumin 3.9 g/dL (3.9-5); BUN/Creatinine Ratio 9; Blood Urea Nitrogen 9 mg/dL (7-17); Calcium 9.5 mg/dL (8.4-10.2); Hemolysis Index 5
[2022-04-29 08:23] LABS: Red Cell Distribution Width 22.8 % (13.2-15.2)
[2022-04-29 08:30] LABS: Partial Thromboplastin Time 33.6 Sec. (24.2-36.6)
[2022-04-29 08:35] LABS: INR 1.06 (0.87-1.13)
== END 2022-04-29 11:09 | disposition left against medical advice (07) ==
LOC: ED 05:03
DX: R10.84 Generalized abdominal pain (principal); R11.2 Nausea with vomiting, unspecified; I11.0 Hypertensive heart disease with heart failure; I50.9 Heart failure, unspecified; K21.9 Gastro-esophageal reflux disease without esophagitis; J44.9 Chronic obstructive pulmonary disease, unspecified; F17.200 Nicotine dependence, unspecified, uncomplicated; Z98.890 Other specified postprocedural states; Z79.899 Other long term (current) drug therapy
CPT/HCPCS: 36415; 80053; 83690; 85025; 85610; 85730; 96374; 96375; 96376; 99284; J2405; J3010